=== PATIENT | male | born 1980 | race Hispanic/Latino ===

== ENCOUNTER 2019-11-10 19:23 | Inpatient (IN) | payer OTHER ==
[~2019-11-10] VITALS: Ht 190.5 cm; Wt 107.5 kg
--- OUTSIDE RECORDS SUMMARY | 2019-11-10 19:29 | XMS REPORT ---
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 Allergies, Adverse Reactions, Alerts This patient has no known allergies or adverse reactions. Medications This patient has no known medications. Encounters Start Date/Time End Date/Time Encounter Type Admission Type Attending [facility] Care Facility Care Department Encounter ID 2019-03-08 00:00:00 2019-03-08 00:00:00 Outpatient [facility] [id number] 2019-02-08 03:38:39 2019-02-08 03:38:39 Emergency [facility] [id number] 2019-02-07 23:43:52 2019-02-07 23:43:52 Outpatient [facility] [id number] 2017-06-04 12:36:00 2017-06-04 12:36:00 Emergency E [facility] MED [id number] Results Test Description Test Time Test Comments Text Results Atomic Results Result Comments POC Glucose 2019-05-24 11:24:41 Glucose POC (test code=Glucose POC) 183 mg/dL 70-115 If you consider your patient critically ill, the Nitish-Accu Check Infrom II meter should not be used for Glucose determination. Draw a venous Glucose and send to the main Lab for analysis. POC [id number] 07:12:47* Test Item Value Reference Range Comments Glucose POC (test code=Glucose POC) 259 mg/dL 70-115 If you consider your patient critically ill, the Nitish-Accu Check Infrom II meter should not be used for Glucose determination. Draw a venous Glucose and send to the main Lab for analysis. POC [id number] 20:28:10* Test Item Value Reference Range Comments Glucose POC (test code=Glucose POC) 227 mg/dL 70-115 Notify RN or MDIf you consider your patient critically ill, the Nitish-Accu Check Infrom II meter should not be used for Glucose determination. Draw a venous Glucose and send to the main Lab for analysis. POC [id number] 16:21:11* Test Item Value Reference Range Comments Glucose POC (test code=Glucose POC) 202 mg/dL 70-115 If you consider your patient critically ill, the Nitish-Accu Check Infrom II meter should not be used for Glucose determination. Draw a venous Glucose and send to the main Lab for analysis. Vancomycin Level [id number] 13:25:28* Test Item Value Reference Range Comments Vanco Tr (test code=Vanco Tr) 13.5 mcg/mL 10.0-20.0 POC [id number] 12:13:43* Test Item Value Reference Range Comments Glucose POC (test code=Glucose POC) 217 mg/dL 70-115 If you consider your patient critically ill, the Nitish-Accu Check Infrom II meter should not be used for Glucose determination. Draw a venous Glucose and send to the main Lab for analysis. POC [id number] 07:42:42* Test Item Value Reference Range Comments Glucose POC (test code=Glucose POC) 183 mg/dL 70-115 If you consider your patient critically ill, the Nitish-Accu Check Infrom II meter should not be used for Glucose determination. Draw a venous Glucose and send to the main Lab for analysis. POC [id number] 20:55:39* Test Item Value Reference Range Comments Glucose POC (test code=Glucose POC) 158 mg/dL 70-115 If you consider your patient critically ill, the Nitish-Accu Check Infrom II meter should not be used for Glucose determination. Draw a venous Glucose and send to the main Lab for analysis. POC [id number] 16:22:41* Test Item Value Reference Range Comments Glucose POC (test code=Glucose POC) 134 mg/dL 70-115 Notify RN or MDIf you consider your patient critically ill, the Nitsih-Accu Check Infrom II meter should not be used for Glucose determination. Draw a venous Glucose and send to the main Lab for analysis. POC [id number] 11:01:35* Test Item Value Reference Range Comments Glucose POC (test code=Glucose POC) 297 mg/dL 70-115 Notify RN or MDIf you consider your patient critically ill, the Nitish-Accu Check Infrom II meter should not be used for Glucose determination. Draw a venous Glucose and send to the main Lab for analysis. ABORh [id number] 08:17:25* Test Item Value Reference Range Comments Methodology (test code=Methodology) Test-Tube(TT) Anti-A (test code=Anti-A) 0 Anti-B (test code=Anti-B) 0 Anti-AB (test code=Anti-AB) NT Anti-D (test code=Anti-D) 4+ ABORh Retype (test code=ABORh Retype) O POS POC [id number] 07:20:40* Test Item Value Reference Range Comments Glucose POC (test code=Glucose POC) 185 mg/dL 70-115 Notify RN or MDIf you consider your patient critically ill, the Nitish-Accu Check Infrom II meter should not be used for Glucose determination. Draw a venous Glucose and send to the main Lab for analysis. 3C ABSC [id number] 06:21:17* Test Item Value Reference Range Comments SC1 IS (test code=SC1 IS) NT SC2 IS (test code=SC2 IS) NT SC3 IS (test code=SC3 IS) NT SC1 37 (test code=SC1 37) 0 SC2 37 (test code=SC2 37) 0 SC3 37 (test code=SC3 37) 0 SC1 AHG (test code=SC1 AHG) 0 SC2 AHG (test code=SC2 AHG) 0 SC3 AHG (test code=SC3 AHG) 0 SC1 CC (test code=SC1 CC) 2+ SC2 CC (test code=SC2 CC) 2+ SC3 CC (test code=SC3 CC) 2+ Antibody Screen (3C) (test code=Antibody Screen (3C)) Negative ABSC [id number] 05:54:23* Test Item Value Reference Range Comments Previous History (test code=Previous History) No Prev History BBID (test code=BBID) [id number] Methodology (test code=Methodology) Test-Tube(TT) Anti-A (test code=Anti-A) 0 Anti-B (test code=Anti-B) 0 Anti-D (test code=Anti-D) 4+ DCon (test code=DCon) NT A1 (test code=A1) 4+ B cells (test code=B cells) 4+ ABORh (test code=ABORh) O POS Automated [id number] 05:41:48* Test Item Value Reference Range Comments Neutro Auto (test code=Neutro Auto) 50.8 % 36.0-70.0 Lymph Auto (test code=Lymph Auto) 35.3 % 12.0-44.0 Wasatch Auto (test code=Wasatch Auto) 9.3 % 0.0-11.0 Eos, Auto (test code=Eos, Auto) 3.4 % 0.0-7.0 Basophil Auto (test code=Basophil Auto) 0.3 % 0.0-2.0 Neutro Absolute (test code=Neutro Absolute) 4.9 x10 1.6-7.4 Lymph Absolute (test code=Lymph Absolute) 3.41 x10 .50-4.60 Wasatch Absolute (test code=Wasatch Absolute) .90 x10 .00-1.20 Eos Absolute (test code=Eos Absolute) 0.33 x10 0.00-0.74 Baso Absolute (test code=Baso Absolute) 0.03 x10 0.00-0.21 IG [id number] 05:41:48* Test Item Value Reference Range Comments IG (test code=IG) 0.9 % 0.0-5.0 IG Abs (test code=IG Abs) 0 x10 Complete Blood Count with [id number] 05:41:47* Test Item Value Reference Range Comments WBC (test code=WBC) 9.6 x10 4.4-10.5 RBC (test code=RBC) 3.62 x10 4.10-5.70 Hgb (test code=Hgb) 8.5 g/dL 13.4-17.4 Hct (test code=Hct) 28.9 % 38.7-52.0 MCV (test code=MCV) 79.80 fL 80.00-100.00 MCHC (test code=MCHC) 29.40 g/dL 32.00-37.50 RDW CV (test code=RDW CV) 16.0 % 11.5-14.5 MCH (test code=MCH) 23.5 pg 27.0-32.5 Platelets (test code=Platelets) 634.0 x10 140.0-440.0 MPV (test code=MPV) 8.3 fL Slide Review (test code=Slide Review) Auto Auto Result created by [email or web address]_REV_AUTO [email or web address] nRBC (test code=nRBC) 0 NRBC Abs (test code=NRBC Abs) 0.00 x10 Pos Morph XN (test code=Pos Morph XN) A IPF (test code=IPF) 0 % Basic Metabolic [id number] 05:25:44* Test Item Value Reference Range Comments Sodium Level (test code=Sodium Level) 136.0 mmol/L 135.0-145.0 Potassium Level (test code=Potassium Level) 4.4 mmol/L 3.5-5.1 Chloride Level (test code=Chloride Level) 95 mmol/L 98-105 CO2 (test code=CO2) 30 mmol/L 22-29 Anion Gap (test code=Anion Gap) 11 mmol/L 7-16 BUN (test code=BUN) 14.50 mg/dL 6.00-20.00 Creatinine Level (test code=Creatinine Level) 0.60 mg/dL 0.70-1.20 BUN/Creat Ratio (test code=BUN/Creat Ratio) 24 Glucose Level (test code=Glucose Level) 179 mg/dL 70-115 Calcium Level (test code=Calcium Level) 8.9 mg/dL 8.3-10.5 Basic Metabolic [id number] 05:25:44* Test Item Value Reference Range Comments Sodium Level (test code=Sodium Level) 136.0 mmol/L 135.0-145.0 Potassium Level (test code=Potassium Level) 4.4 mmol/L 3.5-5.1 Chloride Level (test code=Chloride Level) 95 mmol/L 98-105 CO2 (test code=CO2) 30 mmol/L 22-29 Anion Gap (test code=Anion Gap) 11 mmol/L 7-16 BUN (test code=BUN) 14.50 mg/dL 6.00-20.00 Creatinine Level (test code=Creatinine Level) 0.60 mg/dL 0.70-1.20 BUN/Creat Ratio (test code=BUN/Creat Ratio) 24 Glucose Level (test code=Glucose Level) 179 mg/dL 70-115 Calcium Level (test code=Calcium Level) 8.9 mg/dL 8.3-10.5 eGFR AA (test code=eGFR AA) >60 mL/min/1.73 m2 eGFR (estimated Glomerular Filtration Rate) is an estimated value, calculated from the patient's serum creatinine using the MDRD equation. It is NOT the patient's actual GFR. The eGFR provides a more clinically useful measure of kidney disease than serum creatinine alone.This calculation takes sex and race into account, if the information is provided. If the race is not provided, and the patient is -[place], multiply by 1.212. If sex is not provided, and the patient is female, multiply by 0.742. Results for patients <18 years of age have not been validated by the MDRD study and should be interpreted with caution. eGFR Result Interpretation:eGFR > or=60 is in the Normal RangeeGFR < 60 may mean kidney diseaseeGFR < 15 may mean kidney failure Ranges recommended by the National Kidney Foundation, http://nkdep.nih.gov Basic Metabolic [id number] 05:25:44* Test Item Value Reference Range Comments Sodium Level (test code=Sodium Level) 136.0 mmol/L 135.0-145.0 Potassium Level (test code=Potassium Level) 4.4 mmol/L 3.5-5.1 Chloride Level (test code=Chloride Level) 95 mmol/L 98-105 CO2 (test code=CO2) 30 mmol/L 22-29 Anion Gap (test code=Anion Gap) 11 mmol/L 7-16 BUN (test code=BUN) 14.50 mg/dL 6.00-20.00 Creatinine Level (test code=Creatinine Level) 0.60 mg/dL 0.70-1.20 BUN/Creat Ratio (test code=BUN/Creat Ratio) 24 Glucose Level (test code=Glucose Level) 179 mg/dL 70-115 Calcium Level (test code=Calcium Level) 8.9 mg/dL 8.3-10.5 eGFR AA (test code=eGFR AA) >60 mL/min/1.73 m2 eGFR (estimated Glomerular Filtration Rate) is an estimated value, calculated from the patient's serum creatinine using the MDRD equation. It is NOT the patient's actual GFR. The eGFR provides a more clinically useful measure of kidney disease than serum creatinine alone.This calculation takes sex and race into account, if the information is provided. If the race is not provided, and the patient is -[place], multiply by 1.212. If sex is not provided, and the patient is female, multiply by 0.742. Results for patients <18 years of age have not been validated by the MDRD study and should be interpreted with caution. eGFR Result Interpretation:eGFR > or=60 is in the Normal RangeeGFR < 60 may mean kidney diseaseeGFR < 15 may mean kidney failure Ranges recommended by the National Kidney Foundation, http://nkdep.nih.gov eGFR Non-AA (test code=eGFR Non-AA) >60.00 mL/min/1.73 m2 eGFR (estimated Glomerular Filtration Rate) is an estimated value, calculated from the patient's serum creatinine using the MDRD equation. It is NOT the patient's actual GFR. The eGFR provides a more clinically useful measure of kidney disease than serum creatinine alone.This calculation takes sex and race into account, if the information is provided. If the race is not provided, and the patient is -[place], multiply by 1.212. If sex is not provided, and the patient is female, multiply by 0.742. Results for patients <18 years of age have not been validated by the MDRD study and should be interpreted with caution. eGFR Result Interpretation:eGFR > or=60 is in the Normal RangeeGFR < 60 may mean kidney diseaseeGFR < 15 may mean kidney failure Ranges recommended by the National Kidney Foundation, http://nkdep.nih.gov POC [id number] 20:32:07* Test Item Value Reference Range Comments Glucose POC (test code=Glucose POC) 155 mg/dL 70-115 If you consider your patient critically ill, the Nitish-Accu Check Infrom II meter should not be used for Glucose determination. Draw a venous Glucose and send to the main Lab for analysis. POC [id number] 16:56:40* Test Item Value Reference Range Comments Glucose POC (test code=Glucose POC) 161 mg/dL 70-115 If you consider your patient critically ill, the Nitish-Accu Check Infrom II meter should not be used for Glucose determination. Draw a venous Glucose and send to the main Lab for analysis. POC [id number] 11:55:05* Test Item Value Reference Range Comments Glucose POC (test code=Glucose POC) 291 mg/dL 70-115 If you consider your patient critically ill, the Nitish-Accu Check Infrom II meter should not be used for Glucose determination. Draw a venous Glucose and send to the main Lab for analysis. POC [id number] 07:58:10* Test Item Value Reference Range Comments Glucose POC (test code=Glucose POC) 227 mg/dL 70-115 If you consider your patient critically ill, the Nitish-Accu Check Infrom II meter should not be used for Glucose determination. Draw a venous Glucose and send to the main Lab for analysis. Vancomycin Level [id number] 21:57:56* Test Item Value Reference Range Comments Vanco Tr (test code=Vanco Tr) 11.6 mcg/mL 10.0-20.0 POC [id number] 20:04:38* Test Item Value Reference Range Comments Glucose POC (test code=Glucose POC) 123 mg/dL 70-115 If you consider your patient critically ill, the Nitish-Accu Check Infrom II meter should not be used for Glucose determination. Draw a venous Glucose and send to the main Lab for analysis. POC [id number] 16:27:10* Test Item Value Reference Range Comments Glucose POC (test code=Glucose POC) 164 mg/dL 70-115 If you consider your patient critically ill, the Nitish-Accu Check Infrom II meter should not be used for Glucose determination. Draw a venous Glucose and send to the main Lab for analysis. POC [id number] 11:56:10* Test Item Value Reference Range Comments Glucose POC (test code=Glucose POC) 161 mg/dL 70-115 If you consider your patient critically ill, the Nitish-Accu Check Infrom II meter should not be used for Glucose determination. Draw a venous Glucose and send to the main Lab for analysis. Blood [id number] 09:01:35No growth at 5 days.POC [id number] 07:39:33* Test Item Value Reference Range Comments Glucose POC (test code=Glucose POC) 195 mg/dL 70-115 If you consider your patient critically ill, the Nitish-Accu Check Infrom II meter should not be used for Glucose determination. Draw a venous Glucose and send to the main Lab for analysis. Basic Metabolic [id number] 06:17:36* Test Item Value Reference Range Comments Sodium Level (test code=Sodium Level) 138.0 mmol/L 135.0-145.0 Potassium Level (test code=Potassium Level) 4.0 mmol/L 3.5-5.1 Chloride Level (test code=Chloride Level) 100 mmol/L 98-105 CO2 (test code=CO2) 27 mmol/L 22-29 Anion Gap (test code=Anion Gap) 11 mmol/L 7-16 BUN (test code=BUN) 9.00 mg/dL 6.00-20.00 Creatinine Level (test code=Creatinine Level) 0.60 mg/dL 0.70-1.20 BUN/Creat Ratio (test code=BUN/Creat Ratio) 15 Glucose Level (test code=Glucose Level) 189 mg/dL 70-115 Calcium Level (test code=Calcium Level) 8.5 mg/dL 8.3-10.5 Basic Metabolic [id number] 06:17:36* Test Item Value Reference Range Comments Sodium Level (test code=Sodium Level) 138.0 mmol/L 135.0-145.0 Potassium Level (test code=Potassium Level) 4.0 mmol/L 3.5-5.1 Chloride Level (test code=Chloride Level) 100 mmol/L 98-105 CO2 (test code=CO2) 27 mmol/L 22-29 Anion Gap (test code=Anion Gap) 11 mmol/L 7-16 BUN (test code=BUN) 9.00 mg/dL 6.00-20.00 Creatinine Level (test code=Creatinine Level) 0.60 mg/dL 0.70-1.20 BUN/Creat Ratio (test code=BUN/Creat Ratio) 15 Glucose Level (test code=Glucose Level) 189 mg/dL 70-115 Calcium Level (test code=Calcium Level) 8.5 mg/dL 8.3-10.5 eGFR AA (test code=eGFR AA) >60 mL/min/1.73 m2 eGFR (estimated Glomerular Filtration Rate) is an estimated value, calculated from the patient's serum creatinine using the MDRD equation. It is NOT the patient's actual GFR. The eGFR provides a more clinically useful measure of kidney disease than serum creatinine alone.This calculation takes sex and race into account, if the information is provided. If the race is not provided, and the patient is -[place], multiply by 1.212. If sex is not provided, and the patient is female, multiply by 0.742. Results for patients <18 years of age have not been validated by the MDRD study and should be interpreted with caution. eGFR Result Interpretation:eGFR > or=60 is in the Normal RangeeGFR < 60 may mean kidney diseaseeGFR < 15 may mean kidney failure Ranges recommended by the National Kidney Foundation, http://nkdep.nih.gov Basic Metabolic [id number] 06:17:36* Test Item Value Reference Range Comments Sodium Level (test code=Sodium Level) 138.0 mmol/L 135.0-145.0 Potassium Level (test code=Potassium Level) 4.0 mmol/L 3.5-5.1 Chloride Level (test code=Chloride Level) 100 mmol/L 98-105 CO2 (test code=CO2) 27 mmol/L 22-29 Anion Gap (test code=Anion Gap) 11 mmol/L 7-16 BUN (test code=BUN) 9.00 mg/dL 6.00-20.00 Creatinine Level (test code=Creatinine Level) 0.60 mg/dL 0.70-1.20 BUN/Creat Ratio (test code=BUN/Creat Ratio) 15 Glucose Level (test code=Glucose Level) 189 mg/dL 70-115 Calcium Level (test code=Calcium Level) 8.5 mg/dL 8.3-10.5 eGFR AA (test code=eGFR AA) >60 mL/min/1.73 m2 eGFR (estimated Glomerular Filtration Rate) is an estimated value, calculated from the patient's serum creatinine using the MDRD equation. It is NOT the patient's actual GFR. The eGFR provides a more clinically useful measure of kidney disease than serum creatinine alone.This calculation takes sex and race into account, if the information is provided. If the race is not provided, and the patient is -[place], multiply by 1.212. If sex is not provided, and the patient is female, multiply by 0.742. Results for patients <18 years of age have not been validated by the MDRD study and should be interpreted with caution. eGFR Result Interpretation:eGFR > or=60 is in the Normal RangeeGFR < 60 may mean kidney diseaseeGFR < 15 may mean kidney failure Ranges recommended by the National Kidney Foundation, http://nkdep.nih.gov eGFR Non-AA (test code=eGFR Non-AA) >60.00 mL/min/1.73 m2 eGFR (estimated Glomerular Filtration Rate) is an estimated value, calculated from the patient's serum creatinine using the MDRD equation. It is NOT the patient's actual GFR. The eGFR provides a more clinically useful measure of kidney disease than serum creatinine alone.This calculation takes sex and race into account, if the information is provided. If the race is not provided, and the patient is -[place], multiply by 1.212. If sex is not provided, and the patient is female, multiply by 0.742. Results for patients <18 years of age have not been validated by the MDRD study and should be interpreted with caution. eGFR Result Interpretation:eGFR > or=60 is in the Normal RangeeGFR < 60 may mean kidney diseaseeGFR < 15 may mean kidney failure Ranges recommended by the National Kidney Foundation, http://nkdep.nih.gov Complete Blood Count with [id number] 05:15:48* Test Item Value Reference Range Comments WBC (test code=WBC) 10.2 x10 4.4-10.5 RBC (test code=RBC) 3.15 x10 4.10-5.70 Hgb (test code=Hgb) 7.5 g/dL 13.4-17.4 Hct (test code=Hct) 25.8 % 38.7-52.0 MCV (test code=MCV) 81.90 fL 80.00-100.00 MCHC (test code=MCHC) 29.10 g/dL 32.00-37.50 RDW CV (test code=RDW CV) 16.4 % 11.5-14.5 MCH (test code=MCH) 23.8 pg 27.0-32.5 Platelets (test code=Platelets) 595.0 x10 140.0-440.0 MPV (test code=MPV) 8.7 fL Slide Review (test code=Slide Review) Auto Auto Result created by HEMAL_SJM_SLIDE_REV_AUTO [email or web address] nRBC (test code=nRBC) 0 NRBC Abs (test code=NRBC Abs) 0.00 x10 Pos Morph XN (test code=Pos Morph XN) A IPF (test code=IPF) 0 % Automated [id number] 05:15:48* Test Item Value Reference Range Comments Neutro Auto (test code=Neutro Auto) 46.3 % 36.0-70.0 Lymph Auto (test code=Lymph Auto) 41.3 % 12.0-44.0 Wasatch Auto (test code=Wasatch Auto) 8.3 % 0.0-11.0 Eos, Auto (test code=Eos, Auto) 3.2 % 0.0-7.0 Basophil Auto (test code=Basophil Auto) 0.3 % 0.0-2.0 Neutro Absolute (test code=Neutro Absolute) 4.7 x10 1.6-7.4 Lymph Absolute (test code=Lymph Absolute) 4.21 x10 .50-4.60 Wasatch Absolute (test code=Wasatch Absolute) .85 x10 .00-1.20 Eos Absolute (test code=Eos Absolute) 0.33 x10 0.00-0.74 Baso Absolute (test code=Baso Absolute) 0.03 x10 0.00-0.21 IG [id number] 05:15:48* Test Item Value Reference Range Comments IG (test code=IG) 0.6 % 0.0-5.0 IG Abs (test code=IG Abs) 0 x10 Vancomycin Level [id number] 23:32:37* Test Item Value Reference Range Comments Vanco Tr (test code=Vanco Tr) 2.8 mcg/mL 10.0-20.0 POC [id number] 20:57:44* Test Item Value Reference Range Comments Glucose POC (test code=Glucose POC) 309 mg/dL 70-115 If you consider your patient critically ill, the Nitish-Accu Check Infrom II meter should not be used for Glucose determination. Draw a venous Glucose and send to the main Lab for analysis. POC [id number] 16:21:03* Test Item Value Reference Range Comments Glucose POC (test code=Glucose POC) 199 mg/dL 70-115 Notify RN or MDIf you consider your patient critically ill, the Nitish-Accu Check Infrom II meter should not be used for Glucose determination. Draw a venous Glucose and send to the main Lab for analysis. POC [id number] 11:51:37* Test Item Value Reference Range Comments Glucose POC (test code=Glucose POC) 234 mg/dL 70-115 Notify RN or MDIf you consider your patient critically ill, the Nitish-Accu Check Infrom II meter should not be used for Glucose determination. Draw a venous Glucose and send to the main Lab for analysis. Urine [id number] 10:38:47 C Urine Added by GL_SJM_UA_CUL_IND>=100,000 cfu/ml YeastPOC [id number] 07:40:34* Test Item Value Reference Range Comments Glucose POC (test code=Glucose POC) 228 mg/dL 70-115 Notify RN or MDIf you consider your patient critically ill, the Nitish-Accu Check Infrom II meter should not be used for Glucose determination. Draw a venous Glucose and send to the main Lab for analysis. POC [id number] 19:55:40* Test Item Value Reference Range Comments Glucose POC (test code=Glucose POC) 217 mg/dL 70-115 If you consider your patient critically ill, the Nitish-Accu Check Infrom II meter should not be used for Glucose determination. Draw a venous Glucose and send to the main Lab for analysis. POC [id number] 16:06:29* Test Item Value Reference Range Comments Glucose POC (test code=Glucose POC) 228 mg/dL 70-115 Notify RN or MDIf you consider your patient critically ill, the Nitish-Accu Check Infrom II meter should not be used for Glucose determination. Draw a venous Glucose and send to the main Lab for analysis. POC [id number] 11:15:06* Test Item Value Reference Range Comments Glucose POC (test code=Glucose POC) 251 mg/dL 70-115 Notify RN or MDIf you consider your patient critically ill, the Nitish-Accu Check Infrom II meter should not be used for Glucose determination. Draw a venous Glucose and send to the main Lab for analysis. Urinalysis [id number] 06:51:37* Test Item Value Reference Range Comments UA WBC (test code=UA WBC) 20-29 0-5 UA RBC (test code=UA RBC) 6-10 0-5 UA Bacteria (test code=UA Bacteria) Few UA Squam Epithelial (test code=UA Squam Epithelial) 11-19 UA Yeast (test code=UA Yeast) Many UA Ca Ox Crystal (test code=UA Ca Ox Crystal) Few Basic Metabolic [id number] 06:42:47* Test Item Value Reference Range Comments Sodium Level (test code=Sodium Level) 144.0 mmol/L 135.0-145.0 Potassium Level (test code=Potassium Level) 3.8 mmol/L 3.5-5.1 Chloride Level (test code=Chloride Level) 106 mmol/L 98-105 CO2 (test code=CO2) 27 mmol/L 22-29 Anion Gap (test code=Anion Gap) 11 mmol/L 7-16 BUN (test code=BUN) 8.10 mg/dL 6.00-20.00 Creatinine Level (test code=Creatinine Level) 0.80 mg/dL 0.70-1.20 BUN/Creat Ratio (test code=BUN/Creat Ratio) 10 Glucose Level (test code=Glucose Level) 315 mg/dL 70-115 Calcium Level (test code=Calcium Level) 8.6 mg/dL 8.3-10.5 Basic Metabolic [id number] 06:42:47* Test Item Value Reference Range Comments Sodium Level (test code=Sodium Level) 144.0 mmol/L 135.0-145.0 Potassium Level (test code=Potassium Level) 3.8 mmol/L 3.5-5.1 Chloride Level (test code=Chloride Level) 106 mmol/L 98-105 CO2 (test code=CO2) 27 mmol/L 22-29 Anion Gap (test code=Anion Gap) 11 mmol/L 7-16 BUN (test code=BUN) 8.10 mg/dL 6.00-20.00 Creatinine Level (test code=Creatinine Level) 0.80 mg/dL 0.70-1.20 BUN/Creat Ratio (test code=BUN/Creat Ratio) 10 Glucose Level (test code=Glucose Level) 315 mg/dL 70-115 Calcium Level (test code=Calcium Level) 8.6 mg/dL 8.3-10.5 eGFR AA (test code=eGFR AA) >60 mL/min/1.73 m2 eGFR (estimated Glomerular Filtration Rate) is an estimated value, calculated from the patient's serum creatinine using the MDRD equation. It is NOT the patient's actual GFR. The eGFR provides a more clinically useful measure of kidney disease than serum creatinine alone.This calculation takes sex and race into account, if the information is provided. If the race is not provided, and the patient is -[place], multiply by 1.212. If sex is not provided, and the patient is female, multiply by 0.742. Results for patients <18 years of age have not been validated by the MDRD study and should be interpreted with caution. eGFR Result Interpretation:eGFR > or=60 is in the Normal RangeeGFR < 60 may mean kidney diseaseeGFR < 15 may mean kidney failure Ranges recommended by the National Kidney Foundation, http://nkdep.nih.gov Basic Metabolic [id number] 06:42:47* Test Item Value Reference Range Comments Sodium Level (test code=Sodium Level) 144.0 mmol/L 135.0-145.0 Potassium Level (test code=Potassium Level) 3.8 mmol/L 3.5-5.1 Chloride Level (test code=Chloride Level) 106 mmol/L 98-105 CO2 (test code=CO2) 27 mmol/L 22-29 Anion Gap (test code=Anion Gap) 11 mmol/L 7-16 BUN (test code=BUN) 8.10 mg/dL 6.00-20.00 Creatinine Level (test code=Creatinine Level) 0.80 mg/dL 0.70-1.20 BUN/Creat Ratio (test code=BUN/Creat Ratio) 10 Glucose Level (test code=Glucose Level) 315 mg/dL 70-115 Calcium Level (test code=Calcium Level) 8.6 mg/dL 8.3-10.5 eGFR AA (test code=eGFR AA) >60 mL/min/1.73 m2 eGFR (estimated Glomerular Filtration Rate) is an estimated value, calculated from the patient's serum creatinine using the MDRD equation. It is NOT the patient's actual GFR. The eGFR provides a more clinically useful measure of kidney disease than serum creatinine alone.This calculation takes sex and race into account, if the information is provided. If the race is not provided, and the patient is -[place], multiply by 1.212. If sex is not provided, and the patient is female, multiply by 0.742. Results for patients <18 years of age have not been validated by the MDRD study and should be interpreted with caution. eGFR Result Interpretation:eGFR > or=60 is in the Normal RangeeGFR < 60 may mean kidney diseaseeGFR < 15 may mean kidney failure Ranges recommended by the National Kidney Foundation, http://nkdep.nih.gov eGFR Non-AA (test code=eGFR Non-AA) >60.00 mL/min/1.73 m2 eGFR (estimated Glomerular Filtration Rate) is an estimated value, calculated from the patient's serum creatinine using the MDRD equation. It is NOT the patient's actual GFR. The eGFR provides a more clinically useful measure of kidney disease than serum creatinine alone.This calculation takes sex and race into account, if the information is provided. If the race is not provided, and the patient is -[place], multiply by 1.212. If sex is not provided, and the patient is female, multiply by 0.742. Results for patients <18 years of age have not been validated by the MDRD study and should be interpreted with caution. eGFR Result Interpretation:eGFR > or=60 is in the Normal RangeeGFR < 60 may mean kidney diseaseeGFR < 15 may mean kidney failure Ranges recommended by the National Kidney Foundation, http://nkdep.nih.gov Urinalysis with Culture, if [id number] 06:35:06* Test Item Value Reference Range Comments UA Color (test code=UA Color) YELLO Yellow UA Appear (test code=UA Appear) CLDY Clear UA pH (test code=UA pH) 6 UA Spec Grav (test code=UA Spec Grav) 1.023 1.001-1.035 UA Glucose (test code=UA Glucose) 300 mg/dL Negative UA Bili (test code=UA Bili) NEG Negative UA Ketones (test code=UA Ketones) 5 mg/dL Negative UA Blood (test code=UA Blood) 50 cells/mcL Negative UA Protein (test code=UA Protein) 75 mg/dL Negative UA Urobilinogen (test code=UA Urobilinogen) 4 mg/dL >0.2 UA Nitrite (test code=UA Nitrite) NEG Negative UA Leuk Est (test code=UA Leuk Est) 500 cells/mcL Negative UA Micro Ind? (test code=UA Micro Ind?) Indicated Not Indicated Result created by rule [email or web address]_IND Complete Blood Count without [id number] 06:23:13* Test Item Value Reference Range Comments WBC (test code=WBC) 11.5 x10 4.4-10.5 RBC (test code=RBC) 3.46 x10 4.10-5.70 Hgb (test code=Hgb) 8.3 g/dL 13.4-17.4 Hct (test code=Hct) 28.7 % 38.7-52.0 MCV (test code=MCV) 82.90 fL 80.00-100.00 MCH (test code=MCH) 24.0 pg 27.0-32.5 MCHC (test code=MCHC) 28.90 g/dL 32.00-37.50 RDW CV (test code=RDW CV) 16.9 % 11.5-14.5 Platelets (test code=Platelets) 712.0 x10 140.0-440.0 MPV (test code=MPV) 8.3 fL nRBC (test code=nRBC) 0 NRBC Abs (test code=NRBC Abs) 0.00 x10 IPF (test code=IPF) 0 % POC [id number] 20:26:35* Test Item Value Reference Range Comments Glucose POC (test code=Glucose POC) 217 mg/dL 70-115 If you consider your patient critically ill, the Nitish-Accu Check Infrom II meter should not be used for Glucose determination. Draw a venous Glucose and send to the main Lab for analysis. XR Chest 1 View CVAD Insertion [id number] 19:34:01Patient: JADE LANGE Date/Time05/17/2019 19:29 CDTReason for ExampiccReportChest one view AP 05/17/2019 7:33 PMCLINICAL INDICATION: PICC placementCOMPARISON: 05/17/2019 at 1849LOCATION: [id number]:Tip of a left PICC now projects over the cavoatrial junction. There is a trace right pleural effusion. The lungs are otherwise well aerated. Cardiomediastinal contours are within normal limits. The central pulmonary vascu lature is not engorged. Final Dictated by: MD Webb Timothy JDic tated DT/TM: 05/17/2019 7:33 pmSigned by: MD Webb Timothy JSigned (Electron ic Signature): 05/17/2019 7:34 pmXR Chest 1 View [id number] 19:22:55 Patient: JADE LANGE am Date/Time05/17/2019 19:02 CDTReason for ExamLine placementReportChest one view AP 05/17/2019 7:22 PMCLINICAL INDICATION: Line placementCOMPARISON: None availab leLOCATION: [id number]:The tip of a left PICC projects over the right atrium and could be retracted 4 to 5 cm. The lungs are well aerated. Cardiomediastinal contours are within normal limits. The central pulmonary vasculature is not engo rged. Final Dictated by: MD Webb Timothy JDictated DT/TM: 05/17 7:22 pmSigned by: MD Webb Timothy JSigned (Electronic Signature): 7:22 pmBlood [id number] 18:03:00* Test Item Value Reference Range Comments ORGANISM (test code=ORGANISM) Methicillin-Resistant Staphylococcus aureus Chloramphenicol (test code=Chlor) Ciprofloxacin (test code=Cipro) Clindamycin (test code=Clinda) Erythromycin (test code=Eryth) Gentamicin (test code=Gent) Levofloxacin (test code=Levo) Linezolid (test code=Linez) Oxacillin (test code=Ox) Rifampin (test code=Rif) Tetracycline (test code=Tetra) Trimethoprim/Sulfa (test code=SXT) Vancomycin (test code=Vanc) Final Report (test code=Final Report) Methicillin-Resistant Staphylococcus aureus Contact isolation recommended Results called to and read back by: Rao Cruz RN 05/20/19 10:23:39/PXS Anaerobic Gram Stain Report (test code=Anaerobic Gram Stain Report) Evidence of growth Gram Positive Cocci in Clusters Results called to and read back by: Luisito Love 05/18/19 10:31:45 YA Blood [id number] 18:03:00No growth at 5 days.POC [id number] 15:54:30* Test Item Value Reference Range Comments pH Art (test code=pH Art) 7.45 7.35-7.45 pH Temp Inna Art (test code=pH Temp Inna Art) 7.45 pCO2 Art (test code=pCO2 Art) 40 mmHg 35-45 pCO2 Temp Inna Art (test code=pCO2 Temp Inna Art) 40 mmHg pO2 Art (test code=pO2 Art) 78 mmHg 80-100 pO2 Temp Inna Art (test code=pO2 Temp Inna Art) 78 mmHg ctHb Art (test code=ctHb Art) 8.7 g/dL 12.2-17.4 O2 Sat Art (test code=O2 Sat Art) 96.5 % 80.0-100.0 FO2Hb Art (test code=FO2Hb Art) 94.0 % 0.0-100.0 FCOHb Art (test code=FCOHb Art) 2.5 % 0.0-20.0 FMetHb Art (test code=FMetHb Art) 0.1 % 0.0-20.0 HCO3 Art (test code=HCO3 Art) 27.6 mmol/L 22.0-26.0 L Hct Art (test code=Hct Art) 27 % 34-52 Na Art (test code=Na Art) 143 mmol/L 135-145 K Art (test code=K Art) 3.4 mmol/L 3.5-4.5 iCa Art (test code=iCa Art) 1.18 mmol/L 1.00-1.50 Cl Art (test code=Cl Art) 106 mmol/L 95-105 Glu Art (test code=Glu Art) 294 mg/dL 75-115 Base Excess Arterial (test code=Base Excess Arterial) 3.4 FiO2 Art (test code=FiO2 Art) 21 % Lactate Art (test code=Lactate Art) 0.8 mmol/L 0.5-2.2 Draw Site (test code=Draw Site) Radial. L POC [id number] 15:41:58* Test Item Value Reference Range Comments Glucose POC (test code=Glucose POC) 287 mg/dL 70-115 If you consider your patient critically ill, the Nitish-Accu Check Infrom II meter should not be used for Glucose determination. Draw a venous Glucose and send to the main Lab for analysis. Lactic Acid, Plasma (Venous)2019-05-17 15:37:44* Test Item Value Reference Range Comments Lactic Acid, Plasma (Venous) (test code=Lactic Acid, Plasma (Venous)) 1.0 mmol/L 0.5-1.9 Urine Drug [id number] 22:56:06* Test Item Value Reference Range Comments Amphetamine Screen Ur (test code=Amphetamine Screen Ur) Negative Negative Barbiturate Screen Ur (test code=Barbiturate Screen Ur) Negative Negative Benzodiazepines Ur (test code=Benzodiazepines Ur) Negative Negative Cocaine Screen Ur (test code=Cocaine Screen Ur) POSITIVE Negative U Methadone Scr (test code=U Methadone Scr) Negative Negative Opiate Screen Ur (test code=Opiate Screen Ur) Negative Negative U PCP Scrn (test code=U PCP Scrn) Negative Negative Cannabinoid Screen Ur (test code=Cannabinoid Screen Ur) POSITIVE Negative U TCA (test code=U TCA) POSITIVE Negative The results of all drug screen tests are only preliminary. Clinical consideration and professional judgment should be applied to any drug of abuse test result, particularly when preliminary positive results are obtained. Please order a separate confirmatory test if desired. Comprehensive Metabolic [id number] 21:46:03* Test Item Value Reference Range Comments Sodium Level (test code=Sodium Level) 135.0 mmol/L 135.0-145.0 Potassium Level (test code=Potassium Level) 3.7 mmol/L 3.5-5.1 Chloride Level (test code=Chloride Level) 96 mmol/L 98-105 CO2 (test code=CO2) 20 mmol/L 22-29 Anion Gap (test code=Anion Gap) 19 mmol/L 7-16 BUN (test code=BUN) 13.00 mg/dL 6.00-20.00 Creatinine Level (test code=Creatinine Level) 0.80 mg/dL 0.70-1.20 BUN/Creat Ratio (test code=BUN/Creat Ratio) 16 Glucose Level (test code=Glucose Level) 252 mg/dL 70-115 Calcium Level (test code=Calcium Level) 9.4 mg/dL 8.3-10.5 Alk Phos (test code=Alk Phos) 215 U/L 40-129 Bilirubin Total (test code=Bilirubin Total) 0.4 mg/dL 0.1-0.9 Albumin Level (test code=Albumin Level) 3.5 g/dL 3.5-5.2 Protein Total (test code=Protein Total) 8.2 g/dL 6.4-8.3 ALT (test code=ALT) 15 U/L 1-41 AST (test code=AST) 21 U/L 1-40 Globulin (test code=Globulin) 4.7 g/dL 2.9-3.1 A/G Ratio (test code=A/G Ratio) 0.7 ratio Comprehensive Metabolic [id number] 21:46:03* Test Item Value Reference Range Comments Sodium Level (test code=Sodium Level) 135.0 mmol/L 135.0-145.0 Potassium Level (test code=Potassium Level) 3.7 mmol/L 3.5-5.1 Chloride Level (test code=Chloride Level) 96 mmol/L 98-105 CO2 (test code=CO2) 20 mmol/L 22-29 Anion Gap (test code=Anion Gap) 19 mmol/L 7-16 BUN (test code=BUN) 13.00 mg/dL 6.00-20.00 Creatinine Level (test code=Creatinine Level) 0.80 mg/dL 0.70-1.20 BUN/Creat Ratio (test code=BUN/Creat Ratio) 16 Glucose Level (test code=Glucose Level) 252 mg/dL 70-115 Calcium Level (test code=Calcium Level) 9.4 mg/dL 8.3-10.5 Alk Phos (test code=Alk Phos) 215 U/L 40-129 Bilirubin Total (test code=Bilirubin Total) 0.4 mg/dL 0.1-0.9 Albumin Level (test code=Albumin Level) 3.5 g/dL 3.5-5.2 Protein Total (test code=Protein Total) 8.2 g/dL 6.4-8.3 ALT (test code=ALT) 15 U/L 1-41 AST (test code=AST) 21 U/L 1-40 Globulin (test code=Globulin) 4.7 g/dL 2.9-3.1 A/G Ratio (test code=A/G Ratio) 0.7 ratio eGFR AA (test code=eGFR AA) >60 mL/min/1.73 m2 eGFR (estimated Glomerular Filtration Rate) is an estimated value, calculated from the patient's serum creatinine using the MDRD equation. It is NOT the patient's actual GFR. The eGFR provides a more clinically useful measure of kidney disease than serum creatinine alone.This calculation takes sex and race into account, if the information is provided. If the race is not provided, and the patient is -[place], multiply by 1.212. If sex is not provided, and the patient is female, multiply by 0.742. Results for patients <18 years of age have not been validated by the MDRD study and should be interpreted with caution. eGFR Result Interpretation:eGFR > or=60 is in the Normal RangeeGFR < 60 may mean kidney diseaseeGFR < 15 may mean kidney failure Ranges recommended by the National Kidney Foundation, http://nkdep.nih.gov Alcohol [id number] 21:46:03* Test Item Value Reference Range Comments Ethanol Level (test code=Ethanol Level) <0.00 g/dL 0.00-0.01 Intoxicated 0.080 g/dL or more Ethanol Inst (test code=Ethanol Inst) <0 Comprehensive Metabolic [id number] 21:46:03* Test Item Value Reference Range Comments Sodium Level (test code=Sodium Level) 135.0 mmol/L 135.0-145.0 Potassium Level (test code=Potassium Level) 3.7 mmol/L 3.5-5.1 Chloride Level (test code=Chloride Level) 96 mmol/L 98-105 CO2 (test code=CO2) 20 mmol/L 22-29 Anion Gap (test code=Anion Gap) 19 mmol/L 7-16 BUN (test code=BUN) 13.00 mg/dL 6.00-20.00 Creatinine Level (test code=Creatinine Level) 0.80 mg/dL 0.70-1.20 BUN/Creat Ratio (test code=BUN/Creat Ratio) 16 Glucose Level (test code=Glucose Level) 252 mg/dL 70-115 Calcium Level (test code=Calcium Level) 9.4 mg/dL 8.3-10.5 Alk Phos (test code=Alk Phos) 215 U/L 40-129 Bilirubin Total (test code=Bilirubin Total) 0.4 mg/dL 0.1-0.9 Albumin Level (test code=Albumin Level) 3.5 g/dL 3.5-5.2 Protein Total (test code=Protein Total) 8.2 g/dL 6.4-8.3 ALT (test code=ALT) 15 U/L 1-41 AST (test code=AST) 21 U/L 1-40 Globulin (test code=Globulin) 4.7 g/dL 2.9-3.1 A/G Ratio (test code=A/G Ratio) 0.7 ratio eGFR AA (test code=eGFR AA) >60 mL/min/1.73 m2 eGFR (estimated Glomerular Filtration Rate) is an estimated value, calculated from the patient's serum creatinine using the MDRD equation. It is NOT the patient's actual GFR. The eGFR provides a more clinically useful measure of kidney disease than serum creatinine alone.This calculation takes sex and race into account, if the information is provided. If the race is not provided, and the patient is -[place], multiply by 1.212. If sex is not provided, and the patient is female, multiply by 0.742. Results for patients <18 years of age have not been validated by the MDRD study and should be interpreted with caution. eGFR Result Interpretation:eGFR > or=60 is in the Normal RangeeGFR < 60 may mean kidney diseaseeGFR < 15 may mean kidney failure Ranges recommended by the National Kidney Foundation, http://nkdep.nih.gov eGFR Non-AA (test code=eGFR Non-AA) >60.00 mL/min/1.73 m2 eGFR (estimated Glomerular Filtration Rate) is an estimated value, calculated from the patient's serum creatinine using the MDRD equation. It is NOT the patient's actual GFR. The eGFR provides a more clinically useful measure of kidney disease than serum creatinine alone.This calculation takes sex and race into account, if the information is provided. If the race is not provided, and the patient is -[place], multiply by 1.212. If sex is not provided, and the patient is female, multiply by 0.742. Results for patients <18 years of age have not been validated by the MDRD study and should be interpreted with caution. eGFR Result Interpretation:eGFR > or=60 is in the Normal RangeeGFR < 60 may mean kidney diseaseeGFR < 15 may mean kidney failure Ranges recommended by the National Kidney Foundation, http://nkdep.nih.gov IG [id number] 21:19:52* Test Item Value Reference Range Comments IG (test code=IG) 0.6 % 0.0-5.0 IG Abs (test code=IG Abs) 0 x10 Complete Blood Count with [id number] 21:19:51* Test Item Value Reference Range Comments WBC (test code=WBC) 16.0 x10 4.4-10.5 RBC (test code=RBC) 3.86 x10 4.10-5.70 Hgb (test code=Hgb) 9.4 g/dL 13.4-17.4 Hct (test code=Hct) 31.2 % 38.7-52.0 MCV (test code=MCV) 80.80 fL 80.00-100.00 MCHC (test code=MCHC) 30.10 g/dL 32.00-37.50 RDW CV (test code=RDW CV) 16.7 % 11.5-14.5 MCH (test code=MCH) 24.4 pg 27.0-32.5 Platelets (test code=Platelets) 772.0 x10 140.0-440.0 MPV (test code=MPV) 8.3 fL Slide Review (test code=Slide Review) Auto Auto Result created by [email or web address]_[email or web address] nRBC (test code=nRBC) 0 NRBC Abs (test code=NRBC Abs) 0.00 x10 IPF (test code=IPF) 0 % Automated [id number] 21:19:51* Test Item Value Reference Range Comments Neutro Auto (test code=Neutro Auto) 82.6 % 36.0-70.0 Lymph Auto (test code=Lymph Auto) 8.7 % 12.0-44.0 Wasatch Auto (test code=Wasatch Auto) 7.7 % 0.0-11.0 Eos, Auto (test code=Eos, Auto) 0.1 % 0.0-7.0 Basophil Auto (test code=Basophil Auto) 0.3 % 0.0-2.0 Neutro Absolute (test code=Neutro Absolute) 13.2 x10 1.6-7.4 Lymph Absolute (test code=Lymph Absolute) 1.39 x10 .50-4.60 Wasatch Absolute (test code=Wasatch Absolute) 1.23 x10 .00-1.20 Eos Absolute (test code=Eos Absolute) 0.02 x10 0.00-0.74 Baso Absolute (test code=Baso Absolute) 0.05 x10 0.00-0.21 POC [id number] 11:31:08* Test Item Value Reference Range Comments Glucose POC (test code=Glucose POC) 167 mg/dL 70-115 If you consider your patient critically ill, the Nitish-Accu Check Infrom II meter should not be used for Glucose determination. Draw a venous Glucose and send to the main Lab for analysis. POC [id number] 07:36:11* Test Item Value Reference Range Comments Glucose POC (test code=Glucose POC) 221 mg/dL 70-115 Notify RN or MDIf you consider your patient critically ill, the Nitish-Accu Check Infrom II meter should not be used for Glucose determination. Draw a venous Glucose and send to the main Lab for analysis. POC [id number] 20:26:07* Test Item Value Reference Range Comments Glucose POC (test code=Glucose POC) 176 mg/dL 70-115 Notify RN or MDIf you consider your patient critically ill, the Nitish-Accu Check Infrom II meter should not be used for Glucose determination. Draw a venous Glucose and send to the main Lab for analysis. POC [id number] 16:51:07* Test Item Value Reference Range Comments Glucose POC (test code=Glucose POC) 167 mg/dL 70-115 If you consider your patient critically ill, the Nitish-Accu Check Infrom II meter should not be used for Glucose determination. Draw a venous Glucose and send to the main Lab for analysis. POC [id number] 11:13:15* Test Item Value Reference Range Comments Glucose POC (test code=Glucose POC) 224 mg/dL 70-115 Notify RN or MDIf you consider your patient critically ill, the Nitish-Accu Check Infrom II meter should not be used for Glucose determination. Draw a venous Glucose and send to the main Lab for analysis. POC [id number] 07:31:38* Test Item Value Reference Range Comments Glucose POC (test code=Glucose POC) 263 mg/dL 70-115 Notify RN or MDIf you consider your patient critically ill, the Nitish-Accu Check Infrom II meter should not be used for Glucose determination. Draw a venous Glucose and send to the main Lab for analysis. Basic Metabolic [id number] 06:51:27* Test Item Value Reference Range Comments Sodium Level (test code=Sodium Level) 138.0 mmol/L 135.0-145.0 Potassium Level (test code=Potassium Level) 4.7 mmol/L 3.5-5.1 Chloride Level (test code=Chloride Level) 100 mmol/L 98-105 CO2 (test code=CO2) 29 mmol/L 22-29 Anion Gap (test code=Anion Gap) 9 mmol/L 7-16 BUN (test code=BUN) 16.20 mg/dL 6.00-20.00 Creatinine Level (test code=Creatinine Level) 0.70 mg/dL 0.70-1.20 BUN/Creat Ratio (test code=BUN/Creat Ratio) 23 Glucose Level (test code=Glucose Level) 263 mg/dL 70-115 Calcium Level (test code=Calcium Level) 8.8 mg/dL 8.3-10.5 Basic Metabolic [id number] 06:51:27* Test Item Value Reference Range Comments Sodium Level (test code=Sodium Level) 138.0 mmol/L 135.0-145.0 Potassium Level (test code=Potassium Level) 4.7 mmol/L 3.5-5.1 Chloride Level (test code=Chloride Level) 100 mmol/L 98-105 CO2 (test code=CO2) 29 mmol/L 22-29 Anion Gap (test code=Anion Gap) 9 mmol/L 7-16 BUN (test code=BUN) 16.20 mg/dL 6.00-20.00 Creatinine Level (test code=Creatinine Level) 0.70 mg/dL 0.70-1.20 BUN/Creat Ratio (test code=BUN/Creat Ratio) 23 Glucose Level (test code=Glucose Level) 263 mg/dL 70-115 Calcium Level (test code=Calcium Level) 8.8 mg/dL 8.3-10.5 eGFR AA (test code=eGFR AA) >60 mL/min/1.73 m2 eGFR (estimated Glomerular Filtration Rate) is an estimated value, calculated from the patient's serum creatinine using the MDRD equation. It is NOT the patient's actual GFR. The eGFR provides a more clinically useful measure of kidney disease than serum creatinine alone.This calculation takes sex and race into account, if the information is provided. If the race is not provided, and the patient is -[place], multiply by 1.212. If sex is not provided, and the patient is female, multiply by 0.742. Results for patients <18 years of age have not been validated by the MDRD study and should be interpreted with caution. eGFR Result Interpretation:eGFR > or=60 is in the Normal RangeeGFR < 60 may mean kidney diseaseeGFR < 15 may mean kidney failure Ranges recommended by the National Kidney Foundation, http://nkdep.nih.gov Basic Metabolic [id number] 06:51:27* Test Item Value Reference Range Comments Sodium Level (test code=Sodium Level) 138.0 mmol/L 135.0-145.0 Potassium Level (test code=Potassium Level) 4.7 mmol/L 3.5-5.1 Chloride Level (test code=Chloride Level) 100 mmol/L 98-105 CO2 (test code=CO2) 29 mmol/L 22-29 Anion Gap (test code=Anion Gap) 9 mmol/L 7-16 BUN (test code=BUN) 16.20 mg/dL 6.00-20.00 Creatinine Level (test code=Creatinine Level) 0.70 mg/dL 0.70-1.20 BUN/Creat Ratio (test code=BUN/Creat Ratio) 23 Glucose Level (test code=Glucose Level) 263 mg/dL 70-115 Calcium Level (test code=Calcium Level) 8.8 mg/dL 8.3-10.5 eGFR AA (test code=eGFR AA) >60 mL/min/1.73 m2 eGFR (estimated Glomerular Filtration Rate) is an estimated value, calculated from the patient's serum creatinine using the MDRD equation. It is NOT the patient's actual GFR. The eGFR provides a more clinically useful measure of kidney disease than serum creatinine alone.This calculation takes sex and race into account, if the information is provided. If the race is not provided, and the patient is -[place], multiply by 1.212. If sex is not provided, and the patient is female, multiply by 0.742. Results for patients <18 years of age have not been validated by the MDRD study and should be interpreted with caution. eGFR Result Interpretation:eGFR > or=60 is in the Normal RangeeGFR < 60 may mean kidney diseaseeGFR < 15 may mean kidney failure Ranges recommended by the National Kidney Foundation, http://nkdep.nih.gov eGFR Non-AA (test code=eGFR Non-AA) >60.00 mL/min/1.73 m2 eGFR (estimated Glomerular Filtration Rate) is an estimated value, calculated from the patient's serum creatinine using the MDRD equation. It is NOT the patient's actual GFR. The eGFR provides a more clinically useful measure of kidney disease than serum creatinine alone.This calculation takes sex and race into account, if the information is provided. If the race is not provided, and the patient is -[place], multiply by 1.212. If sex is not provided, and the patient is female, multiply by 0.742. Results for patients <18 years of age have not been validated by the MDRD study and should be interpreted with caution. eGFR Result Interpretation:eGFR > or=60 is in the Normal RangeeGFR < 60 may mean kidney diseaseeGFR < 15 may mean kidney failure Ranges recommended by the National [facility], http://nkdep.nih.gov Automated [id number] 06:46:59* Test Item Value Reference Range Comments Neutro Auto (test code=Neutro Auto) 53.5 % 36.0-70.0 Lymph Auto (test code=Lymph Auto) 34.2 % 12.0-44.0 Wasatch Auto (test code=Wasatch Auto) 7.9 % 0.0-11.0 Eos, Auto (test code=Eos, Auto) 3.1 % 0.0-7.0 Basophil Auto (test code=Basophil Auto) 0.4 % 0.0-2.0 Neutro Absolute (test code=Neutro Absolute) 6.1 x10 1.6-7.4 Lymph Absolute (test code=Lymph Absolute) 3.92 x10 .50-4.60 Wasatch Absolute (test code=Wasatch Absolute) .91 x10 .00-1.20 Eos Absolute (test code=Eos Absolute) 0.35 x10 0.00-0.74 Baso Absolute (test code=Baso Absolute) 0.05 x10 0.00-0.21 IG [id number] 06:46:59* Test Item Value Reference Range Comments IG (test code=IG) 0.9 % 0.0-5.0 IG Abs (test code=IG Abs) 0 x10 Complete Blood Count with [id number] 06:46:58* Test Item Value Reference Range Comments WBC (test code=WBC) 11.5 x10 4.4-10.5 RBC (test code=RBC) 3.58 x10 4.10-5.70 Hgb (test code=Hgb) 8.9 g/dL 13.4-17.4 Hct (test code=Hct) 29.5 % 38.7-52.0 MCV (test code=MCV) 82.40 fL 80.00-100.00 MCHC (test code=MCHC) 30.20 g/dL 32.00-37.50 RDW CV (test code=RDW CV) 16.0 % 11.5-14.5 MCH (test code=MCH) 24.9 pg 27.0-32.5 Platelets (test code=Platelets) 777.0 x10 140.0-440.0 MPV (test code=MPV) 8.3 fL Slide Review (test code=Slide Review) Auto Auto Result created by GL_SJM_SLIDE_REV_AUTO nRBC (test code=nRBC) 0 NRBC Abs (test code=NRBC Abs) 0.00 x10 IPF (test code=IPF) 0 % Prothrombin Time and [id number] 06:46:58* Test Item Value Reference Range Comments Prothrombin Time (test code=Prothrombin Time) 12.5 seconds 9.8-13.4 INR (test code=INR) 1.1 ratio 0.6-1.2 POC [id number] 20:30:45* Test Item Value Reference Range Comments Glucose POC (test code=Glucose POC) 170 mg/dL 70-115 If you consider your patient critically ill, the Nitish-Accu Check Infrom II meter should not be used for Glucose determination. Draw a venous Glucose and send to the main Lab for analysis. POC [id number] 16:43:12* Test Item Value Reference Range Comments Glucose POC (test code=Glucose POC) 165 mg/dL 70-115 If you consider your patient critically ill, the Nitish-Accu Check Infrom II meter should not be used for Glucose determination. Draw a venous Glucose and send to the main Lab for analysis. Blood [id number] 12:02:02No growth at 5 days.POC [id number] 11:15:34* Test Item Value Reference Range Comments Glucose POC (test code=Glucose POC) 302 mg/dL 70-115 Notify RN or MDIf you consider your patient critically ill, the Nitish-Accu Check Infrom II meter should not be used for Glucose determination. Draw a venous Glucose and send to the main Lab for analysis. POC [id number] 07:49:14* Test Item Value Reference Range Comments Glucose POC (test code=Glucose POC) 272 mg/dL 70-115 If you consider your patient critically ill, the Nitish-Accu Check Infrom II meter should not be used for Glucose determination. Draw a venous Glucose and send to the main Lab for analysis. POC [id number] 20:59:08* Test Item Value Reference Range Comments Glucose POC (test code=Glucose POC) 306 mg/dL 70-115 Notify RN or MDIf you consider your patient critically ill, the Nitish-Accu Check Infrom II meter should not be used for Glucose determination. Draw a venous Glucose and send to the main Lab for analysis. POC [id number] 16:28:39* Test Item Value Reference Range Comments Glucose POC (test code=Glucose POC) 167 mg/dL 70-115 Notify RN or MDIf you consider your patient critically ill, the Nitish-Accu Check Infrom II meter should not be used for Glucose determination. Draw a venous Glucose and send to the main Lab for analysis. POC [id number] 11:51:31* Test Item Value Reference Range Comments Glucose POC (test code=Glucose POC) 275 mg/dL 70-115 Notify RN or MDIf you consider your patient critically ill, the Nitish-Accu Check Infrom II meter should not be used for Glucose determination. Draw a venous Glucose and send to the main Lab for analysis. POC [id number] 07:48:38* Test Item Value Reference Range Comments Glucose POC (test code=Glucose POC) 187 mg/dL 70-115 Notify RN or MDIf you consider your patient critically ill, the Nitish-Accu Check Infrom II meter should not be used for Glucose determination. Draw a venous Glucose and send to the main Lab for analysis. Basic Metabolic [id number] 05:25:11* Test Item Value Reference Range Comments Sodium Level (test code=Sodium Level) 138.0 mmol/L 135.0-145.0 Potassium Level (test code=Potassium Level) 4.2 mmol/L 3.5-5.1 Chloride Level (test code=Chloride Level) 102 mmol/L 98-105 CO2 (test code=CO2) 27 mmol/L 22-29 Anion Gap (test code=Anion Gap) 9 mmol/L 7-16 BUN (test code=BUN) 7.80 mg/dL 6.00-20.00 Creatinine Level (test code=Creatinine Level) 0.50 mg/dL 0.70-1.20 BUN/Creat Ratio (test code=BUN/Creat Ratio) 16 Glucose Level (test code=Glucose Level) 172 mg/dL 70-115 Calcium Level (test code=Calcium Level) 8.5 mg/dL 8.3-10.5 Basic Metabolic [id number] 05:25:11* Test Item Value Reference Range Comments Sodium Level (test code=Sodium Level) 138.0 mmol/L 135.0-145.0 Potassium Level (test code=Potassium Level) 4.2 mmol/L 3.5-5.1 Chloride Level (test code=Chloride Level) 102 mmol/L 98-105 CO2 (test code=CO2) 27 mmol/L 22-29 Anion Gap (test code=Anion Gap) 9 mmol/L 7-16 BUN (test code=BUN) 7.80 mg/dL 6.00-20.00 Creatinine Level (test code=Creatinine Level) 0.50 mg/dL 0.70-1.20 BUN/Creat Ratio (test code=BUN/Creat Ratio) 16 Glucose Level (test code=Glucose Level) 172 mg/dL 70-115 Calcium Level (test code=Calcium Level) 8.5 mg/dL 8.3-10.5 eGFR AA (test code=eGFR AA) >60 mL/min/1.73 m2 eGFR (estimated Glomerular Filtration Rate) is an estimated value, calculated from the patient's serum creatinine using the MDRD equation. It is NOT the patient's actual GFR. The eGFR provides a more clinically useful measure of kidney disease than serum creatinine alone.This calculation takes sex and race into account, if the information is provided. If the race is not provided, and the patient is -[place], multiply by 1.212. If sex is not provided, and the patient is female, multiply by 0.742. Results for patients <18 years of age have not been validated by the MDRD study and should be interpreted with caution. eGFR Result Interpretation:eGFR > or=60 is in the Normal RangeeGFR < 60 may mean kidney diseaseeGFR < 15 may mean kidney failure Ranges recommended by the National [employer], http://nkdep.nih.gov Basic Metabolic [id number] 05:25:11* Test Item Value Reference Range Comments Sodium Level (test code=Sodium Level) 138.0 mmol/L 135.0-145.0 Potassium Level (test code=Potassium Level) 4.2 mmol/L 3.5-5.1 Chloride Level (test code=Chloride Level) 102 mmol/L 98-105 CO2 (test code=CO2) 27 mmol/L 22-29 Anion Gap (test code=Anion Gap) 9 mmol/L 7-16 BUN (test code=BUN) 7.80 mg/dL 6.00-20.00 Creatinine Level (test code=Creatinine Level) 0.50 mg/dL 0.70-1.20 BUN/Creat Ratio (test code=BUN/Creat Ratio) 16 Glucose Level (test code=Glucose Level) 172 mg/dL 70-115 Calcium Level (test code=Calcium Level) 8.5 mg/dL 8.3-10.5 eGFR AA (test code=eGFR AA) >60 mL/min/1.73 m2 eGFR (estimated Glomerular Filtration Rate) is an estimated value, calculated from the patient's serum creatinine using the MDRD equation. It is NOT the patient's actual GFR. The eGFR provides a more clinically useful measure of kidney disease than serum creatinine alone.This calculation takes sex and race into account, if the information is provided. If the race is not provided, and the patient is -[place], multiply by 1.212. If sex is not provided, and the patient is female, multiply by 0.742. Results for patients <18 years of age have not been validated by the MDRD study and should be interpreted with caution. eGFR Result Interpretation:eGFR > or=60 is in the Normal RangeeGFR < 60 may mean kidney diseaseeGFR < 15 may mean kidney failure Ranges recommended by the [employer] [facility], http://nkdep.nih.gov eGFR Non-AA (test code=eGFR Non-AA) >60.00 mL/min/1.73 m2 eGFR (estimated Glomerular Filtration Rate) is an estimated value, calculated from the patient's serum creatinine using the MDRD equation. It is NOT the patient's actual GFR. The eGFR provides a more clinically useful measure of kidney disease than serum creatinine alone.This calculation takes sex and race into account, if the information is provided. If the race is not provided, and the patient is -[place], multiply by 1.212. If sex is not provided, and the patient is female, multiply by 0.742. Results for patients <18 years of age have not been validated by the MDRD study and should be interpreted with caution. eGFR Result Interpretation:eGFR > or=60 is in the Normal RangeeGFR < 60 may mean kidney diseaseeGFR < 15 may mean kidney failure Ranges recommended by the [employer] [facility], http://nkdep.nih.gov Urinalysis with Culture, if [id number] 05:12:29* Test Item Value Reference Range Comments UA Color (test code=UA Color) YELLO Yellow UA Appear (test code=UA Appear) CLEAR Clear UA pH (test code=UA pH) 5 UA Spec Grav (test code=UA Spec Grav) 1.009 1.001-1.035 UA Glucose (test code=UA Glucose) NEG Negative UA Bili (test code=UA Bili) NEG Negative UA Ketones (test code=UA Ketones) NEG Negative UA Blood (test code=UA Blood) NEG Negative UA Protein (test code=UA Protein) NEG Negative UA Urobilinogen (test code=UA Urobilinogen) 0.2 mg/dL UA Nitrite (test code=UA Nitrite) NEG Negative UA Leuk Est (test code=UA Leuk Est) NEG Negative UA Micro Ind? (test code=UA Micro Ind?) Not Indicated Not Indicated Result created by rule GL_SJM_UA_MICRO_IND Complete Blood Count with [id number] 05:06:41* Test Item Value Reference Range Comments WBC (test code=WBC) 11.4 x10 4.4-10.5 RBC (test code=RBC) 3.25 x10 4.10-5.70 Hgb (test code=Hgb) 8.1 g/dL 13.4-17.4 MCV (test code=MCV) 82.50 fL 80.00-100.00 Hct (test code=Hct) 26.8 % 38.7-52.0 MCHC (test code=MCHC) 30.20 g/dL 32.00-37.50 RDW CV (test code=RDW CV) 15.8 % 11.5-14.5 MCH (test code=MCH) 24.9 pg 27.0-32.5 Platelets (test code=Platelets) 709.0 x10 140.0-440.0 MPV (test code=MPV) 8.2 fL Slide Review (test code=Slide Review) Auto Auto Result created by GL_SJM_SLIDE_REV_AUTO nRBC (test code=nRBC) 0 NRBC Abs (test code=NRBC Abs) 0.00 x10 IPF (test code=IPF) 0 % Automated [id number] 05:06:41* Test Item Value Reference Range Comments Neutro Auto (test code=Neutro Auto) 52.8 % 36.0-70.0 Lymph Auto (test code=Lymph Auto) 34.4 % 12.0-44.0 Wasatch Auto (test code=Wasatch Auto) 9.2 % 0.0-11.0 Eos, Auto (test code=Eos, Auto) 2.5 % 0.0-7.0 Basophil Auto (test code=Basophil Auto) 0.4 % 0.0-2.0 Neutro Absolute (test code=Neutro Absolute) 6.0 x10 1.6-7.4 Lymph Absolute (test code=Lymph Absolute) 3.92 x10 .50-4.60 Wasatch Absolute (test code=Wasatch Absolute) 1.05 x10 .00-1.20 Eos Absolute (test code=Eos Absolute) 0.28 x10 0.00-0.74 Baso Absolute (test code=Baso Absolute) 0.04 x10 0.00-0.21 IG [id number] 05:06:41* Test Item Value Reference Range Comments IG (test code=IG) 0.7 % 0.0-5.0 IG Abs (test code=IG Abs) 0 x10 POC [id number] 21:04:42* Test Item Value Reference Range Comments Glucose POC (test code=Glucose POC) 211 mg/dL 70-115 If you consider your patient critically ill, the Nitish-Accu Check Infrom II meter should not be used for Glucose determination. Draw a venous Glucose and send to the main Lab for analysis. POC [id number] 16:59:08* Test Item Value Reference Range Comments Glucose POC (test code=Glucose POC) 231 mg/dL 70-115 Notify RN or MDIf you consider your patient critically ill, the Nitish-Accu Check Infrom II meter should not be used for Glucose determination. Draw a venous Glucose and send to the main Lab for analysis. POC [id number] 11:36:36* Test Item Value Reference Range Comments Glucose POC (test code=Glucose POC) 360 mg/dL 70-115 Notify RN or MDIf you consider your patient critically ill, the Nitish-Accu Check Infrom II meter should not be used for Glucose determination. Draw a venous Glucose and send to the main Lab for analysis. POC [id number] 07:40:35* Test Item Value Reference Range Comments Glucose POC (test code=Glucose POC) 241 mg/dL 70-115 Notify RN or MDIf you consider your patient critically ill, the Nitish-Accu Check Infrom II meter should not be used for Glucose determination. Draw a venous Glucose and send to the main Lab for analysis. POC [id number] 20:25:31* Test Item Value Reference Range Comments Glucose POC (test code=Glucose POC) 306 mg/dL 70-115 If you consider your patient critically ill, the Nitish-Accu Check Infrom II meter should not be used for Glucose determination. Draw a venous Glucose and send to the main Lab for analysis. POC [id number] 17:11:02* Test Item Value Reference Range Comments Glucose POC (test code=Glucose POC) 191 mg/dL 70-115 Notify RN or MDIf you consider your patient critically ill, the Nitish-Accu Check Infrom II meter should not be used for Glucose determination. Draw a venous Glucose and send to the main Lab for analysis. XR Chest 1 View [id number] 16:29:35Patient: JADE LANGE II Date/Time04/06/2019 16:22 CDTReason for ExamLine placementReportCHEST 1 VIEWCLINICAL INFORMATION: Line placementCOMPARISON: October 26, 2018FINDINGS:The tip of the left arm PICC is located at the superior cavoatrial junction. The lungs are well-expanded. There is stable blunting of the right lateral costophrenic angle. The heart size is normal. The bones are unchanged.IMPRESSION:The tip of the left arm PICC projects over the superior cavoatrial junction.LOCATION: R16 Final Dictated by: MD Corley Adam FDictated DT/TM: 04/06/2019 4:28 pmSigned by: MD Corley Adam FSigned (Electronic Signature): 04/06/2019 4:29 pmPOC [id number] 14:07:01* Test Item Value Reference Range Comments Glucose POC (test code=Glucose POC) 276 mg/dL 70-115 If you consider your patient critically ill, the Nitish-Accu Check Infrom II meter should not be used for Glucose determination. Draw a venous Glucose and send to the main Lab for analysis. POC [id number] 11:12:33* Test Item Value Reference Range Comments Glucose POC (test code=Glucose POC) 292 mg/dL 70-115 If you consider your patient critically ill, the Nitish-Accu Check Infrom II meter should not be used for Glucose determination. Draw a venous Glucose and send to the main Lab for analysis. Urine [id number] 09:34:39* Test Item Value Reference Range Comments ORGANISM (test code=ORGANISM) Escherichia coli Amikacin (test code=Amik) Ampicillin (test code=Amp) Ampicillin/Sulbactam (test code=Amp/Sul) Cefazolin (test code=Cefaz) Cefepime (test code=Cefep) Cefotaxime (test code=Cefo) Ceftazidime (test code=Ceftaz) Ceftriaxone (test code=Ceftri) Cefuroxime (test code=Cefur) Ciprofloxacin (test code=Cipro) Gentamicin (test code=Gent) Imipenem (test code=Imi) Levofloxacin (test code=Levo) Meropenem (test code=Lisandro) Nitrofurantoin (test code=Nitro) Piperacillin/Tazobactam (test code=Pip/Jerzy) Tobramycin (test code=Tobra) Trimethoprim/Sulfa (test code=SXT) ORGANISM (test code=ORGANISM2) Escherichia coli Amikacin (test code=Amik) Ampicillin (test code=Amp) Ampicillin/Sulbactam (test code=Amp/Sul) Cefazolin (test code=Cefaz) Cefepime (test code=Cefep) Cefotaxime (test code=Cefo) Ceftazidime (test code=Ceftaz) Ceftriaxone (test code=Ceftri) Cefuroxime (test code=Cefur) Ciprofloxacin (test code=Cipro) Gentamicin (test code=Gent) Imipenem (test code=Imi) Levofloxacin (test code=Levo) Meropenem (test code=Lisandro) Nitrofurantoin (test code=Nitro) Piperacillin/Tazobactam (test code=Pip/Jerzy) Tobramycin (test code=Tobra) Trimethoprim/Sulfa (test code=SXT) Final Report (test code=Final Report) >=100,000 cfu/ml Escherichia coli >=100,000 cfu/ml Escherichia coli #2 C Urine Added by [email or web address]_CUL_INDHemoglobin [id number] 07:40:43* Test Item Value Reference Range Comments Hemoglobin A1c (test code=Hemoglobin A1c) 10.5 % 4.8-5.9 Non Diabetic 4.8-5.9%Diabetic <7.0% POC [id number] 07:23:37* Test Item Value Reference Range Comments Glucose POC (test code=Glucose POC) 308 mg/dL 70-115 If you consider your patient critically ill, the Nitish-Accu Check Infrom II meter should not be used for Glucose determination. Draw a venous Glucose and send to the main Lab for analysis. 3C ABSC [id number] 05:58:53* Test Item Value Reference Range Comments SC1 IS (test code=SC1 IS) NT SC2 IS (test code=SC2 IS) NT SC3 IS (test code=SC3 IS) NT SC1 37 (test code=SC1 37) 0 SC2 37 (test code=SC2 37) 0 SC3 37 (test code=SC3 37) 0 SC1 AHG (test code=SC1 AHG) 0 SC2 AHG (test code=SC2 AHG) 0 SC3 AHG (test code=SC3 AHG) 0 SC1 CC (test code=SC1 CC) 2+ SC2 CC (test code=SC2 CC) 2+ SC3 CC (test code=SC3 CC) 2+ Antibody Screen (3C) (test code=Antibody Screen (3C)) Negative ABSC [id number] 05:58:52* Test Item Value Reference Range Comments Previous History (test code=Previous History) Yes Prev History BBID (test code=BBID) [id number] Methodology (test code=Methodology) Test-Tube(TT) Anti-A (test code=Anti-A) 0 Anti-B (test code=Anti-B) 0 Anti-D (test code=Anti-D) 4+ DCon (test code=DCon) NT A1 (test code=A1) 4+ B cells (test code=B cells) 4+ ABORh (test code=ABORh) O POS Protein [id number] 05:39:06* Test Item Value Reference Range Comments Protein Total (test code=Protein Total) 7.0 g/dL 6.4-8.3 Albumin [id number] 05:39:06* Test Item Value Reference Range Comments Albumin Level (test code=Albumin Level) 3.0 g/dL 3.5-5.2 [id number] 05:39:06* Test Item Value Reference Range Comments Prealbumin (test code=Prealbumin) 10 mg/dL 20-40 Basic Metabolic [id number] 05:39:05* Test Item Value Reference Range Comments Sodium Level (test code=Sodium Level) 135.0 mmol/L 135.0-145.0 Potassium Level (test code=Potassium Level) 4.5 mmol/L 3.5-5.1 Chloride Level (test code=Chloride Level) 98 mmol/L 98-105 CO2 (test code=CO2) 25 mmol/L 22-29 Anion Gap (test code=Anion Gap) 12 mmol/L 7-16 BUN (test code=BUN) 9.20 mg/dL 6.00-20.00 Creatinine Level (test code=Creatinine Level) 0.60 mg/dL 0.70-1.20 BUN/Creat Ratio (test code=BUN/Creat Ratio) 15 Glucose Level (test code=Glucose Level) 299 mg/dL 70-115 Calcium Level (test code=Calcium Level) 8.5 mg/dL 8.3-10.5 Basic Metabolic [id number] 05:39:05* Test Item Value Reference Range Comments Sodium Level (test code=Sodium Level) 135.0 mmol/L 135.0-145.0 Potassium Level (test code=Potassium Level) 4.5 mmol/L 3.5-5.1 Chloride Level (test code=Chloride Level) 98 mmol/L 98-105 CO2 (test code=CO2) 25 mmol/L 22-29 Anion Gap (test code=Anion Gap) 12 mmol/L 7-16 BUN (test code=BUN) 9.20 mg/dL 6.00-20.00 Creatinine Level (test code=Creatinine Level) 0.60 mg/dL 0.70-1.20 BUN/Creat Ratio (test code=BUN/Creat Ratio) 15 Glucose Level (test code=Glucose Level) 299 mg/dL 70-115 Calcium Level (test code=Calcium Level) 8.5 mg/dL 8.3-10.5 eGFR AA (test code=eGFR AA) >60 mL/min/1.73 m2 eGFR (estimated Glomerular Filtration Rate) is an estimated value, calculated from the patient's serum creatinine using the MDRD equation. It is NOT the patient's actual GFR. The eGFR provides a more clinically useful measure of kidney disease than serum creatinine alone.This calculation takes sex and race into account, if the information is provided. If the race is not provided, and the patient is -[place], multiply by 1.212. If sex is not provided, and the patient is female, multiply by 0.742. Results for patients <18 years of age have not been validated by the MDRD study and should be interpreted with caution. eGFR Result Interpretation:eGFR > or=60 is in the Normal RangeeGFR < 60 may mean kidney diseaseeGFR < 15 may mean kidney failure Ranges recommended by the National Kidney Foundation, http://nkdep.nih.gov Basic Metabolic [id number] 05:39:05* Test Item Value Reference Range Comments Sodium Level (test code=Sodium Level) 135.0 mmol/L 135.0-145.0 Potassium Level (test code=Potassium Level) 4.5 mmol/L 3.5-5.1 Chloride Level (test code=Chloride Level) 98 mmol/L 98-105 CO2 (test code=CO2) 25 mmol/L 22-29 Anion Gap (test code=Anion Gap) 12 mmol/L 7-16 BUN (test code=BUN) 9.20 mg/dL 6.00-20.00 Creatinine Level (test code=Creatinine Level) 0.60 mg/dL 0.70-1.20 BUN/Creat Ratio (test code=BUN/Creat Ratio) 15 Glucose Level (test code=Glucose Level) 299 mg/dL 70-115 Calcium Level (test code=Calcium Level) 8.5 mg/dL 8.3-10.5 eGFR AA (test code=eGFR AA) >60 mL/min/1.73 m2 eGFR (estimated Glomerular Filtration Rate) is an estimated value, calculated from the patient's serum creatinine using the MDRD equation. It is NOT the patient's actual GFR. The eGFR provides a more clinically useful measure of kidney disease than serum creatinine alone.This calculation takes sex and race into account, if the information is provided. If the race is not provided, and the patient is -[place], multiply by 1.212. If sex is not provided, and the patient is female, multiply by 0.742. Results for patients <18 years of age have not been validated by the MDRD study and should be interpreted with caution. eGFR Result Interpretation:eGFR > or=60 is in the Normal RangeeGFR < 60 may mean kidney diseaseeGFR < 15 may mean kidney failure Ranges recommended by the National Kidney Foundation, http://nkdep.nih.gov eGFR Non-AA (test code=eGFR Non-AA) >60.00 mL/min/1.73 m2 eGFR (estimated Glomerular Filtration Rate) is an estimated value, calculated from the patient's serum creatinine using the MDRD equation. It is NOT the patient's actual GFR. The eGFR provides a more clinically useful measure of kidney disease than serum creatinine alone.This calculation takes sex and race into account, if the information is provided. If the race is not provided, and the patient is -[place], multiply by 1.212. If sex is not provided, and the patient is female, multiply by 0.742. Results for patients <18 years of age have not been validated by the MDRD study and should be interpreted with caution. eGFR Result Interpretation:eGFR > or=60 is in the Normal RangeeGFR < 60 may mean kidney diseaseeGFR < 15 may mean kidney failure Ranges recommended by the National Kidney Foundation, http://nkdep.nih.gov Complete Blood Count without [id number] 05:07:31* Test Item Value Reference Range Comments WBC (test code=WBC) 15.1 x10 4.4-10.5 RBC (test code=RBC) 3.63 x10 4.10-5.70 Hgb (test code=Hgb) 9.1 g/dL 13.4-17.4 Hct (test code=Hct) 30.0 % 38.7-52.0 MCV (test code=MCV) 82.60 fL 80.00-100.00 MCH (test code=MCH) 25.1 pg 27.0-32.5 MCHC (test code=MCHC) 30.30 g/dL 32.00-37.50 RDW CV (test code=RDW CV) 16.2 % 11.5-14.5 Platelets (test code=Platelets) 685.0 x10 140.0-440.0 MPV (test code=MPV) 9.2 fL nRBC (test code=nRBC) 0 NRBC Abs (test code=NRBC Abs) 0.00 x10 IPF (test code=IPF) 0 % Drugs of Abuse Urine [id number] 01:09:36* Test Item Value Reference Range Comments Amphetamine Screen Ur (test code=Amphetamine Screen Ur) Negative Negative For diagnostic purposes only. Positive results should always be assessed in conjunction with a patient's medical history. Barbiturate Screen Ur (test code=Barbiturate Screen Ur) Negative Negative Benzodiazepines Ur (test code=Benzodiazepines Ur) Negative Negative Cocaine Screen Ur (test code=Cocaine Screen Ur) Negative Negative U Methadone (test code=U Methadone) Negative Negative Opiate Screen Ur (test code=Opiate Screen Ur) POSITIVE Negative U PCP Scrn (test code=U PCP Scrn) Negative Negative U Propoxyphene (test code=U Propoxyphene) Negative Negative Cannabinoid Screen Ur (test code=Cannabinoid Screen Ur) POSITIVE Negative POC [id number] 21:19:06* Test Item Value Reference Range Comments Glucose POC (test code=Glucose POC) 376 mg/dL 70-115 If you consider your patient critically ill, the Nitish-Accu Check Infrom II meter should not be used for Glucose determination. Draw a venous Glucose and send to the main Lab for analysis. Red Blood Cells [id number] 19:22:25* Test Item Value Reference Range Comments # of Units (test code=# of Units) 2 RBC Trn Reason (test code=RBC Trn Reason) Surgery RBC Product Ready (test code=RBC Product Ready) RBC Ready 3C ABSC [id number] 19:14:26* Test Item Value Reference Range Comments SC1 IS (test code=SC1 IS) NT SC2 IS (test code=SC2 IS) NT SC3 IS (test code=SC3 IS) NT SC1 37 (test code=SC1 37) 0 SC2 37 (test code=SC2 37) 0 SC3 37 (test code=SC3 37) 0 SC1 AHG (test code=SC1 AHG) 0 SC2 AHG (test code=SC2 AHG) 0 SC3 AHG (test code=SC3 AHG) 0 SC1 CC (test code=SC1 CC) 2+ SC2 CC (test code=SC2 CC) 2+ SC3 CC (test code=SC3 CC) 2+ Antibody Screen (3C) (test code=Antibody Screen (3C)) Negative ABSC Hx [id number]/[id number] 18:37:56O [id number] 18:36:35* Test Item Value Reference Range Comments Previous History (test code=Previous History) Yes Prev History BBID (test code=BBID) [id number] Methodology (test code=Methodology) Test-Tube(TT) Anti-A (test code=Anti-A) 0 Anti-B (test code=Anti-B) 0 Anti-D (test code=Anti-D) 4+ DCon (test code=DCon) NT A1 (test code=A1) 4+ B cells (test code=B cells) 4+ ABORh (test code=ABORh) O POS POC [id number] 16:22:41* Test Item Value Reference Range Comments Glucose POC (test code=Glucose POC) 327 mg/dL 70-115 Notify RN or MDIf you consider your patient critically ill, the Nitish-Accu Check Infrom II meter should not be used for Glucose determination. Draw a venous Glucose and send to the main Lab for analysis. POC [id number] 11:16:36* Test Item Value Reference Range Comments Glucose POC (test code=Glucose POC) 351 mg/dL 70-115 Notify RN or MDIf you consider your patient critically ill, the Nitish-Accu Check Infrom II meter should not be used for Glucose determination. Draw a venous Glucose and send to the main Lab for analysis. Erythrocyte Sedimentation Rate [id number] 08:15:41* Test Item Value Reference Range Comments ESR STAT (test code=ESR STAT) 129 mm/hr 0-9 POC [id number] 07:43:40* Test Item Value Reference Range Comments Glucose POC (test code=Glucose POC) 338 mg/dL 70-115 Notify RN or MDIf you consider your patient critically ill, the Nitish-Accu Check Infrom II meter should not be used for Glucose determination. Draw a venous Glucose and send to the main Lab for analysis. Complete Blood Count without [id number] 07:10:35* Test Item Value Reference Range Comments WBC (test code=WBC) 12.8 x10 4.4-10.5 RBC (test code=RBC) 3.55 x10 4.10-5.70 Hgb (test code=Hgb) 8.9 g/dL 13.4-17.4 Hct (test code=Hct) 29.1 % 38.7-52.0 MCV (test code=MCV) 82.00 fL 80.00-100.00 MCH (test code=MCH) 25.1 pg 27.0-32.5 MCHC (test code=MCHC) 30.60 g/dL 32.00-37.50 RDW CV (test code=RDW CV) 16.1 % 11.5-14.5 Platelets (test code=Platelets) 690.0 x10 140.0-440.0 MPV (test code=MPV) 9.0 fL nRBC (test code=nRBC) 0 NRBC Abs (test code=NRBC Abs) 0.00 x10 IPF (test code=IPF) 0 % Basic Metabolic [id number] 07:07:06* Test Item Value Reference Range Comments Sodium Level (test code=Sodium Level) 134.0 mmol/L 135.0-145.0 Potassium Level (test code=Potassium Level) 4.8 mmol/L 3.5-5.1 Chloride Level (test code=Chloride Level) 99 mmol/L 98-105 CO2 (test code=CO2) 22 mmol/L 22-29 Anion Gap (test code=Anion Gap) 13 mmol/L 7-16 BUN (test code=BUN) 12.30 mg/dL 6.00-20.00 Creatinine Level (test code=Creatinine Level) 0.70 mg/dL 0.70-1.20 BUN/Creat Ratio (test code=BUN/Creat Ratio) 18 Glucose Level (test code=Glucose Level) 329 mg/dL 70-115 Calcium Level (test code=Calcium Level) 8.7 mg/dL 8.3-10.5 C Reactive [id number] 07:07:06* Test Item Value Reference Range Comments CRP (test code=CRP) 187.3 mg/L 0.0-5.0 Basic Metabolic [id number] 07:07:06* Test Item Value Reference Range Comments Sodium Level (test code=Sodium Level) 134.0 mmol/L 135.0-145.0 Potassium Level (test code=Potassium Level) 4.8 mmol/L 3.5-5.1 Chloride Level (test code=Chloride Level) 99 mmol/L 98-105 CO2 (test code=CO2) 22 mmol/L 22-29 Anion Gap (test code=Anion Gap) 13 mmol/L 7-16 BUN (test code=BUN) 12.30 mg/dL 6.00-20.00 Creatinine Level (test code=Creatinine Level) 0.70 mg/dL 0.70-1.20 BUN/Creat Ratio (test code=BUN/Creat Ratio) 18 Glucose Level (test code=Glucose Level) 329 mg/dL 70-115 Calcium Level (test code=Calcium Level) 8.7 mg/dL 8.3-10.5 eGFR AA (test code=eGFR AA) >60 mL/min/1.73 m2 eGFR (estimated Glomerular Filtration Rate) is an estimated value, calculated from the patient's serum creatinine using the MDRD equation. It is NOT the patient's actual GFR. The eGFR provides a more clinically useful measure of kidney disease than serum creatinine alone.This calculation takes sex and race into account, if the information is provided. If the race is not provided, and the patient is -[place], multiply by 1.212. If sex is not provided, and the patient is female, multiply by 0.742. Results for patients <18 years of age have not been validated by the MDRD study and should be interpreted with caution. eGFR Result Interpretation:eGFR > or=60 is in the Normal RangeeGFR < 60 may mean kidney diseaseeGFR < 15 may mean kidney failure Ranges recommended by the National Kidney Foundation, http://nkdep.nih.gov Basic Metabolic [id number] 07:07:06* Test Item Value Reference Range Comments Sodium Level (test code=Sodium Level) 134.0 mmol/L 135.0-145.0 Potassium Level (test code=Potassium Level) 4.8 mmol/L 3.5-5.1 Chloride Level (test code=Chloride Level) 99 mmol/L 98-105 CO2 (test code=CO2) 22 mmol/L 22-29 Anion Gap (test code=Anion Gap) 13 mmol/L 7-16 BUN (test code=BUN) 12.30 mg/dL 6.00-20.00 Creatinine Level (test code=Creatinine Level) 0.70 mg/dL 0.70-1.20 BUN/Creat Ratio (test code=BUN/Creat Ratio) 18 Glucose Level (test code=Glucose Level) 329 mg/dL 70-115 Calcium Level (test code=Calcium Level) 8.7 mg/dL 8.3-10.5 eGFR AA (test code=eGFR AA) >60 mL/min/1.73 m2 eGFR (estimated Glomerular Filtration Rate) is an estimated value, calculated from the patient's serum creatinine using the MDRD equation. It is NOT the patient's actual GFR. The eGFR provides a more clinically useful measure of kidney disease than serum creatinine alone.This calculation takes sex and race into account, if the information is provided. If the race is not provided, and the patient is -[place], multiply by 1.212. If sex is not provided, and the patient is female, multiply by 0.742. Results for patients <18 years of age have not been validated by the MDRD study and should be interpreted with caution. eGFR Result Interpretation:eGFR > or=60 is in the Normal RangeeGFR < 60 may mean kidney diseaseeGFR < 15 may mean kidney failure Ranges recommended by the National Kidney Foundation, http://nkdep.nih.gov eGFR Non-AA (test code=eGFR Non-AA) >60.00 mL/min/1.73 m2 eGFR (estimated Glomerular Filtration Rate) is an estimated value, calculated from the patient's serum creatinine using the MDRD equation. It is NOT the patient's actual GFR. The eGFR provides a more clinically useful measure of kidney disease than serum creatinine alone.This calculation takes sex and race into account, if the information is provided. If the race is not provided, and the patient is -[place], multiply by 1.212. If sex is not provided, and the patient is female, multiply by 0.742. Results for patients <18 years of age have not been validated by the MDRD study and should be interpreted with caution. eGFR Result Interpretation:eGFR > or=60 is in the Normal RangeeGFR < 60 may mean kidney diseaseeGFR < 15 may mean kidney failure Ranges recommended by the National Kidney Foundation, http://nkdep.nih.gov POC [id number] 21:54:36* Test Item Value Reference Range Comments Glucose POC (test code=Glucose POC) 281 mg/dL 70-115 Notify RN or MDIf you consider your patient critically ill, the Nitish-Accu Check Infrom II meter should not be used for Glucose determination. Draw a venous Glucose and send to the main Lab for analysis. POC [id number] 16:45:59* Test Item Value Reference Range Comments Glucose POC (test code=Glucose POC) 246 mg/dL 70-115 Notify RN or MDIf you consider your patient critically ill, the Nitish-Accu Check Infrom II meter should not be used for Glucose determination. Draw a venous Glucose and send to the main Lab for analysis. Blood [id number] 15:01:47No growth at 5 days.Urinalysis Microscopic 2019-04-04 12:52:27* Test Item Value Reference Range Comments UA WBC (test code=UA WBC) 20-29 0-5 UA RBC (test code=UA RBC) 0-5 0-5 UA Bacteria (test code=UA Bacteria) Profuse UA Squam Epithelial (test code=UA Squam Epithelial) 0-5 Urinalysis with Culture, if [id number] 12:37:15* Test Item Value Reference Range Comments UA Color (test code=UA Color) YELLO Yellow UA Appear (test code=UA Appear) CLEAR Clear UA pH (test code=UA pH) 6.5 UA Spec Grav (test code=UA Spec Grav) 1.032 1.001-1.035 UA Glucose (test code=UA Glucose) 1000 mg/dL Negative UA Bili (test code=UA Bili) NEG Negative UA Ketones (test code=UA Ketones) 5 mg/dL Negative UA Blood (test code=UA Blood) 25 cells/mcL Negative UA Protein (test code=UA Protein) NEG Negative UA Urobilinogen (test code=UA Urobilinogen) 1 mg/dL >0.2 UA Nitrite (test code=UA Nitrite) POS Negative UA Leuk Est (test code=UA Leuk Est) NEG Negative UA Micro Ind? (test code=UA Micro Ind?) Indicated Not Indicated Result created by rule [email or web address]_MICRO_IND Comprehensive Metabolic [id number] 11:57:22* Test Item Value Reference Range Comments Sodium Level (test code=Sodium Level) 135.0 mmol/L 135.0-145.0 Potassium Level (test code=Potassium Level) 4.5 mmol/L 3.5-5.1 Chloride Level (test code=Chloride Level) 96 mmol/L 98-105 CO2 (test code=CO2) 28 mmol/L 22-29 Anion Gap (test code=Anion Gap) 11 mmol/L 7-16 BUN (test code=BUN) 8.70 mg/dL 6.00-20.00 Creatinine Level (test code=Creatinine Level) 0.60 mg/dL 0.70-1.20 BUN/Creat Ratio (test code=BUN/Creat Ratio) 14 Glucose Level (test code=Glucose Level) 478 mg/dL 70-115 Critical results called to SCOTTY PEREZ RN at 04/04/2019 11:55:00 CDT by . Read back and verified? YES Calcium Level (test code=Calcium Level) 8.7 mg/dL 8.3-10.5 Alk Phos (test code=Alk Phos) 331 U/L 40-129 Bilirubin Total (test code=Bilirubin Total) 0.3 mg/dL 0.1-0.9 Albumin Level (test code=Albumin Level) 3.1 g/dL 3.5-5.2 Protein Total (test code=Protein Total) 7.6 g/dL 6.4-8.3 ALT (test code=ALT) 20 U/L 1-41 AST (test code=AST) 12 U/L 1-40 Globulin (test code=Globulin) 4.5 g/dL 2.9-3.1 A/G Ratio (test code=A/G Ratio) 0.7 ratio eGFR AA (test code=eGFR AA) >60 mL/min/1.73 m2 eGFR (estimated Glomerular Filtration Rate) is an estimated value, calculated from the patient's serum creatinine using the MDRD equation. It is NOT the patient's actual GFR. The eGFR provides a more clinically useful measure of kidney disease than serum creatinine alone.This calculation takes sex and race into account, if the information is provided. If the race is not provided, and the patient is -[place], multiply by 1.212. If sex is not provided, and the patient is female, multiply by 0.742. Results for patients <18 years of age have not been validated by the MDRD study and should be interpreted with caution. eGFR Result Interpretation:eGFR > or=60 is in the Normal RangeeGFR < 60 may mean kidney diseaseeGFR < 15 may mean kidney failure Ranges recommended by the National Kidney Foundation, http://nkdep.nih.gov Comprehensive Metabolic [id number] 11:57:22* Test Item Value Reference Range Comments Sodium Level (test code=Sodium Level) 135.0 mmol/L 135.0-145.0 Potassium Level (test code=Potassium Level) 4.5 mmol/L 3.5-5.1 Chloride Level (test code=Chloride Level) 96 mmol/L 98-105 CO2 (test code=CO2) 28 mmol/L 22-29 Anion Gap (test code=Anion Gap) 11 mmol/L 7-16 BUN (test code=BUN) 8.70 mg/dL 6.00-20.00 Creatinine Level (test code=Creatinine Level) 0.60 mg/dL 0.70-1.20 BUN/Creat Ratio (test code=BUN/Creat Ratio) 14 Glucose Level (test code=Glucose Level) 478 mg/dL 70-115 Critical results called to SCOTTY PEREZ RN at 04/04/2019 11:55:00 CDT by . Read back and verified? YES Calcium Level (test code=Calcium Level) 8.7 mg/dL 8.3-10.5 Alk Phos (test code=Alk Phos) 331 U/L 40-129 Bilirubin Total (test code=Bilirubin Total) 0.3 mg/dL 0.1-0.9 Albumin Level (test code=Albumin Level) 3.1 g/dL 3.5-5.2 Protein Total (test code=Protein Total) 7.6 g/dL 6.4-8.3 ALT (test code=ALT) 20 U/L 1-41 AST (test code=AST) 12 U/L 1-40 Globulin (test code=Globulin) 4.5 g/dL 2.9-3.1 A/G Ratio (test code=A/G Ratio) 0.7 ratio eGFR AA (test code=eGFR AA) >60 mL/min/1.73 m2 eGFR (estimated Glomerular Filtration Rate) is an estimated value, calculated from the patient's serum creatinine using the MDRD equation. It is NOT the patient's actual GFR. The eGFR provides a more clinically useful measure of kidney disease than serum creatinine alone.This calculation takes sex and race into account, if the information is provided. If the race is not provided, and the patient is -[place], multiply by 1.212. If sex is not provided, and the patient is female, multiply by 0.742. Results for patients <18 years of age have not been validated by the MDRD study and should be interpreted with caution. eGFR Result Interpretation:eGFR > or=60 is in the Normal RangeeGFR < 60 may mean kidney diseaseeGFR < 15 may mean kidney failure Ranges recommended by the National Kidney Foundation, http://nkdep.nih.gov Comprehensive Metabolic [id number] 11:57:22* Test Item Value Reference Range Comments Sodium Level (test code=Sodium Level) 135.0 mmol/L 135.0-145.0 Potassium Level (test code=Potassium Level) 4.5 mmol/L 3.5-5.1 Chloride Level (test code=Chloride Level) 96 mmol/L 98-105 CO2 (test code=CO2) 28 mmol/L 22-29 Anion Gap (test code=Anion Gap) 11 mmol/L 7-16 BUN (test code=BUN) 8.70 mg/dL 6.00-20.00 Creatinine Level (test code=Creatinine Level) 0.60 mg/dL 0.70-1.20 BUN/Creat Ratio (test code=BUN/Creat Ratio) 14 Glucose Level (test code=Glucose Level) 478 mg/dL 70-115 Critical results called to SCOTTY PEREZ RN at 04/04/2019 11:55:00 CDT by . Read back and verified? YES Calcium Level (test code=Calcium Level) 8.7 mg/dL 8.3-10.5 Alk Phos (test code=Alk Phos) 331 U/L 40-129 Bilirubin Total (test code=Bilirubin Total) 0.3 mg/dL 0.1-0.9 Albumin Level (test code=Albumin Level) 3.1 g/dL 3.5-5.2 Protein Total (test code=Protein Total) 7.6 g/dL 6.4-8.3 ALT (test code=ALT) 20 U/L 1-41 AST (test code=AST) 12 U/L 1-40 Globulin (test code=Globulin) 4.5 g/dL 2.9-3.1 A/G Ratio (test code=A/G Ratio) 0.7 ratio eGFR AA (test code=eGFR AA) >60 mL/min/1.73 m2 eGFR (estimated Glomerular Filtration Rate) is an estimated value, calculated from the patient's serum creatinine using the MDRD equation. It is NOT the patient's actual GFR. The eGFR provides a more clinically useful measure of kidney disease than serum creatinine alone.This calculation takes sex and race into account, if the information is provided. If the race is not provided, and the patient is -[place], multiply by 1.212. If sex is not provided, and the patient is female, multiply by 0.742. Results for patients <18 years of age have not been validated by the MDRD study and should be interpreted with caution. eGFR Result Interpretation:eGFR > or=60 is in the Normal RangeeGFR < 60 may mean kidney diseaseeGFR < 15 may mean kidney failure Ranges recommended by the National Kidney Foundation, http://nkdep.nih.gov eGFR Non-AA (test code=eGFR Non-AA) >60.00 mL/min/1.73 m2 eGFR (estimated Glomerular Filtration Rate) is an estimated value, calculated from the patient's serum creatinine using the MDRD equation. It is NOT the patient's actual GFR. The eGFR provides a more clinically useful measure of kidney disease than serum creatinine alone.This calculation takes sex and race into account, if the information is provided. If the race is not provided, and the patient is -[place], multiply by 1.212. If sex is not provided, and the patient is female, multiply by 0.742. Results for patients <18 years of age have not been validated by the MDRD study and should be interpreted with caution. eGFR Result Interpretation:eGFR > or=60 is in the Normal RangeeGFR < 60 may mean kidney diseaseeGFR < 15 may mean kidney failure Ranges recommended by the National Kidney Foundation, http://nkdep.nih.gov Erythrocyte Sedimentation Rate [id number] 11:41:50* Test Item Value Reference Range Comments ESR STAT (test code=ESR STAT) 113 mm/hr 0-9 Lactic Acid, Plasma (Venous)2019-04-04 11:32:31* Test Item Value Reference Range Comments Lactic Acid, Plasma (Venous) (test code=Lactic Acid, Plasma (Venous)) 1.6 mmol/L 0.5-1.9 Complete Blood Count with [id number] 11:22:31* Test Item Value Reference Range Comments WBC (test code=WBC) 14.1 x10 4.4-10.5 RBC (test code=RBC) 3.64 x10 4.10-5.70 Hgb (test code=Hgb) 9.1 g/dL 13.4-17.4 MCV (test code=MCV) 81.90 fL 80.00-100.00 Hct (test code=Hct) 29.8 % 38.7-52.0 MCHC (test code=MCHC) 30.50 g/dL 32.00-37.50 MCH (test code=MCH) 25.0 pg 27.0-32.5 RDW CV (test code=RDW CV) 15.9 % 11.5-14.5 Platelets (test code=Platelets) 575.0 x10 140.0-440.0 MPV (test code=MPV) 9.1 fL Slide Review (test code=Slide Review) Auto Auto Result created by [email or web address]_REV_AUTO nRBC (test code=nRBC) 0 NRBC Abs (test code=NRBC Abs) 0.00 x10 IPF (test code=IPF) 0 % Automated [id number] 11:22:31* Test Item Value Reference Range Comments Neutro Auto (test code=Neutro Auto) 70.9 % 36.0-70.0 Lymph Auto (test code=Lymph Auto) 20.0 % 12.0-44.0 Wasatch Auto (test code=Wasatch Auto) 7.1 % 0.0-11.0 Eos, Auto (test code=Eos, Auto) 1.1 % 0.0-7.0 Basophil Auto (test code=Basophil Auto) 0.3 % 0.0-2.0 Neutro Absolute (test code=Neutro Absolute) 10.0 x10 1.6-7.4 Lymph Absolute (test code=Lymph Absolute) 2.83 x10 .50-4.60 Wasatch Absolute (test code=Wasatch Absolute) 1.00 x10 .00-1.20 Eos Absolute (test code=Eos Absolute) 0.15 x10 0.00-0.74 Baso Absolute (test code=Baso Absolute) 0.04 x10 0.00-0.21 IG [id number] 11:22:31* Test Item Value Reference Range Comments IG (test code=IG) 0.6 % 0.0-5.0 IG Abs (test code=IG Abs) 0 x10 Wound Culture w/ Gram [id number] 10:17:52* Test Item Value Reference Range Comments ORGANISM (test code=ORGANISM) Methicillin-Resistant Staphylococcus aureus Chloramphenicol (test code=Chlor) Ciprofloxacin (test code=Cipro) Clindamycin (test code=Clinda) Erythromycin (test code=Eryth) Gentamicin (test code=Gent) Levofloxacin (test code=Levo) Linezolid (test code=Linez) Oxacillin (test code=Ox) Rifampin (test code=Rif) Tetracycline (test code=Tetra) Trimethoprim/Sulfa (test code=SXT) Vancomycin (test code=Vanc) Amended Final Report (test code=Amended Final Report) Few Methicillin-Resistant Staphylococcus aureus Contact isolation recommended Moderate Diphtheroids No Anaerobes Isolated at 3 Days Gram Stain Report (test code=Gram Stain Report) Rare White Blood Cells No organisms seen. Wound Culture w/ Gram [id number] 09:27:59* Test Item Value Reference Range Comments ORGANISM (test code=ORGANISM) Methicillin-Resistant Staphylococcus aureus Chloramphenicol (test code=Chlor) Ciprofloxacin (test code=Cipro) Clindamycin (test code=Clinda) Erythromycin (test code=Eryth) Gentamicin (test code=Gent) Levofloxacin (test code=Levo) Linezolid (test code=Linez) Oxacillin (test code=Ox) Rifampin (test code=Rif) Tetracycline (test code=Tetra) Trimethoprim/Sulfa (test code=SXT) Vancomycin (test code=Vanc) Final Report (test code=Final Report) Few Methicillin-Resistant Staphylococcus aureus Moderate Diphtheroids No Anaerobes Isolated at 3 Days Gram Stain Report (test code=Gram Stain Report) Rare White Blood Cells No organisms seen. Blood [id number] 00:02:07No growth at 5 days.Blood [id number] 00:01:26No growth at [address] Spine Thoracic w/o [id number] 23:05:50 Patient: JADE BOX am Date/Time01/23/2019 22:53 CDTReason for ExamBack painReportCT THORACIC SPINE WI THOUT CONTRASTLocation: [id number] history painTechnique:Helical axial CT scan was performed. Coronal and sagittal reconstructions of the entire thoracic spin e were obtained. Exam was performed on an up-to-date helical CT scanner. Images were viewed in both bone and soft tissue windows. Evaluation of the intracanali cular soft tissues is limited due to the lack of intrathecal contrast.This exam was performed according to our departmental dose -optimization program, which in cludes automatic exposure control, adjustment of MA and/or KV according to patie nt size, and or use of iterative reconstruction technique.DLP: 2090 mGy*cmF INDINGS:There is no fracture, dislocation, listhesis, focal lytic or blastic les ion. No evidence of central spinal canal or foraminal stenosis.The paravertebral soft tissues are normal without evidence of paravertebral hematoma or mass.There is hypertrophic facet arthropathy at the mid spine more prominent on the right at T9-T10.IMPRESSION:No acute abnormality. Mild DJD. Final Dictated b y: MD Rowe Maria VDictated DT/TM: 01/23/2019 11:04 pmSigned by: MD Rowe Maria VSigned (Electronic Signature): 01/23/2019 11:05 pmCT Spine Lumbar w/o [id number] 23:03:48Patient: JADE BOX Date/Time01/23/2019 22:53 CDTReason for ExamBack painReportCT LUMBAR SPINE WITHOUT CONTRASTLocation: [id number] history painTechnique:Helical axial CT scan was performed. Coronal and sagittal reconstructions of the entire lumbar spine were obtained. Exam was performed on an up-to-date helical CT scanner. Images were viewed in both bone and soft tissue windows. Evaluation of the intracanalicular soft tissues is limited due to the lack of intrathecal contrast.This exam was performed according to our departmental dose -optimization program, which includes automatic exposure control, adjustment of MA and/or KV according to patient size, and or use of iterative reconstruction technique.DLP: 2090 mGy*cmFINDINGS:There is no fracture, dislocation, listhesis, focal lytic or blastic lesion. No evidence of central spinal canal or foraminal stenosis.The paravertebral soft tissues are normal without evidence of paravertebral hematoma or mass.Mild hypertrophic facet arthropathy is present throughout the spine.IMPRESSION:1. No acute lumbar spine abnormality. Mild facet arthritis.2. DJD and heterotopic calcifications noted at the hips and pelvis more on the left. Clinical correlation adam mmended. Final Dictated by: MD Rowe Maria VDictated DT/TM: 02/2019 11:00 pmSigned by: MD Rowe Maria VSigned (Electronic Signature): 11:03 pmCT Spine Cervical w/o [id number] 22:44:01Patient: JADE BOX Date/Time01/23/2019 22:40 CDTReason for ExamBack painReportCT CERVICAL SPINELoc ation: [id number] HISTORY: painTechnique:Helical axial CT scan of the cervical spine was performed. Coronal and sagittal images were reconstructed. Exam was p erformed on an up-to-date helical CT scanner. Images were viewed in both soft tissue and bone windows.This exam was performed according to our departmental do se -optimization program, which includes automatic exposure control, adjustment of mA and/or kV according to patient size, and/ or use of iterative reconstructi on technique.DLP: 568 mGy*cmFINDINGS: There is no evidence of fracture, disl ocation, subluxation. Alignment is normal. Soft tissues are normal. There are no paraspinal hematomas.There are no degenerative changes demonstrated.IMPRESSI ON:Normal exam. Final Dictated by: MD Rowe Maria VDictated DT/T M: 01/23/2019 10:42 pmSigned by: MD Rowe Maria VSigned (Electronic Signatur e): 01/23/2019 10:44 pmCT Pelvis w/o [id number] 18:22:47Patient: JADE LANGE II Date/Time01/09/2019 17:46 CDTReason for ExamSepsisReportCT SCAN OF THE PELVIS WITHOUT CONTRASTLocation: [id number] HISTORY: Sepsis. Pressure ulcersTECHNIQUE: Helical CT of the pelvis without IV contrast without complication. Exam perfor med without IV contrast has limited sensitivity for detection of mass or inflamm ation. Exam was performed on an up-to-date helical CT scanner. Coronal and sag ittal images were reconstructed.This exam was performed according to our [facility] ental dose- optimization program, which includes automatic exposure control, adj ustment of MA and/or KV according to patient size, and or use of iterative recon struction technique.DLP: 965 mGy*cmComparison study CT left hip and femur J an and CT pelvis January 01, 2018FINDINGS:On the left, deep large 4 cm pre ssure ulcers again noted lateral to the left femur greater trochanter and caudal to the left ischium. There is little interval change in the extensive heterotop ic calcification lateral to the left greater and caudal to the left ischial tube rosity. Soft tissue thickening of the lower aspect of the left greater gluteus a nd upper hamstring muscles is unchanged. Several small bubbles of subcutaneous e mphysema are seen within the ulcer best seen on axial images 98. On the right, e xtensive heterotopic calcification measuring approximately 10 x 5 x 4.7 cm is ag ain noted just caudal to the right ischial tuberosity. Scarring from prior press ure ulcers in the soft tissues is present adjacent to the right initial tuberosi ty and lateral to the right hip.This degree of periostitis and periosteal reacti on from pressure ulcers has high correlation to osteomyelitis.Left lower quadran t abdominal colostomy noted. Bladder, seminal vesicles, prostate bladder unremar kable. Bilateral enlarged groin lymph nodes again noted.IMPRESSION:1. Overall li ttle change in the deep pressure ulcers lateral to left femur greater trochanter and adjacent to the left ischial tuberosity, with extensive periosteal reaction and heterotopic bone formation.2. The findings have high correlation to osteomy elitis. Recommend correlation to clinical history and biopsy results. Final Dictated by: MD Rowe Maria VDictated DT/TM: 01/09/2019 6:03 pmSigned by: MD Rowe Maria VSigned (Electronic Signature): 01/09/2019 6:22 pmXR Chest 1 View CVAD Insertion [id number] 16:02:33Patient: JADE LANGE II Date/Time10/26/2018 15:30 CSTReason for ExamLine placementReportEXAM: XR Chest 1 View CVAD Insertion Follow-upHISTORY: Line placementLocation code R 16COMPARISON: Chest radiograph from 05/05/2018FINDINGS:Right arm PICC tip is in the distal SVC.Pleural thickening/small effusion at right lung base persists. Left lung is clear. Cardiomediastinal silhouette is normal.Osseous structures are unremarkabl e.IMPRESSION:Right arm PICC tip in distal SVC. Final Dictated by: Triston Girard MD, Rebecca FDictated DT/TM: 10/26/2018 4:01 pmSigned by: Saskia Teixeira MD, Rebecca FSigned (Electronic Signature): 10/26/2018 4:02 pmCT Femur w/o Contrast [id number] 23:52:32Patient: JADE LANGE II Date/Time10/17/2018 23:38 CSTReason for ExamOsteomyelitisReportEXAM: CT LEFT LOWER EXTREMITY WITHOUT CONTRASTINDICATION: OsteomyelitisCOMPARISON: None availableTECHNIQUE: Routine axial CT images of the left femur without intravenous contrast. Coronal and sagittal reformatted images were submitted for review.IV contrast: None DLP: 1897.3 mGy-cmFINDINGS:There is a soft tissue overlying the left greater trochanter measuring approximately 3 x 4.4 cm in diameter and 4.2 cm in depth. There is soft tissue thickening and edema involving the adjacent soft tissues. Significant heterotopic ossification is noted which is new compared to the prior examination. There is also periosteal reaction involving the proximal left femur/greater trochanter.There is a second soft tissue ulceration overlying the left ischial tuberosity measuring approximately 7.9 x 1.5 cm for depth of 5.4 cm. There is significant soft tissue thickening and intramuscular edema. There is heterotopic ossification and periosteal reaction surrounding the left ischium with osseous erosion consistent with osteomyelitis.There are multiple enlarged lymph nodes within the left groin with the largest measuring 2.4 x 1.9 cm which are likely reactive. There is an colostomy noted in the left lower quadrant ot herwise the visualized small and large bowel is unremarkable. The urinary bladde r is unremarkable.IMPRESSION:1. Osseous erosion involving the ACL tuberosity c onsistent with osteomyelitis. Significant periosteal reaction involving the left issue him as well as the left proximal femur/greater trochanter.2. Large soft tissue ulcerations overlying the left greater trochanter and left issue and as detailed above.3. Large left inguinal lymph node which is likely reactive.LOCA TION: [id number] CT exam was performed according to our departmental dose optimizat ion program, which includes automated exposure control, adjustment of the mA and /or kV according to the patient size and/or use of iterative reconstructive tech nique. Final Dictated by: MD Andrade Melanie CDictated DT/TM: 09/21 11:44 pmSigned by: MD Andrade Melanie CSigned (Electronic Signature): 10/17/2018 11:52 pmBLOOD [id number] 19:01:00* Test Item Value Reference Range Comments CULTURE (BEAKER) (test rael=6719) No growth in 5 days BLOOD [id number] 19:01:00* Test Item Value Reference Range Comments CULTURE (BEAKER) (test jnls=4901) No growth in 5 days BLOOD [id number] 07:01:00* Test Item Value Reference Range Comments CULTURE (BEAKER) (test bpbe=2281) No growth in 5 days BLOOD [id number] 07:01:00* Test Item Value Reference Range Comments CULTURE (BEAKER) (test vpeh=5035) No growth in 5 days POCT-GLUCOSE [id number] 11:48:00* Test Item Value Reference Range Comments POC-GLUCOSE METER (BEAKER) (test vvfn=9066) 151 mg/dL 70-110 TESTED AT [facility] [address] [facility] [address] POCT-GLUCOSE [id number] 08:10:00* Test Item Value Reference Range Comments POC-GLUCOSE METER (BEAKER) (test dacd=5141) 178 mg/dL 70-110 TESTED AT [facility] [address] [facility] [address] [id number] 06:47:00* Test Item Value Reference Range Comments PHOSPHORUS (BEAKER) (test hmzn=481) 4.6 mg/dL 2.3-4.7 [id number] 06:47:00* Test Item Value Reference Range Comments MAGNESIUM (BEAKER) (test irui=838) 2.1 mg/dL 1.6-2.6 BASIC METABOLIC [id number] 06:47:00* Test Item Value Reference Range Comments SODIUM (BEAKER) (test yvoa=633) 139 meq/L 136-145 POTASSIUM (BEAKER) (test vasa=674) 4.0 meq/L 3.5-5.1 CHLORIDE (BEAKER) (test ilnm=826) 104 meq/L 98-107 CO2 (BEAKER) (test soes=367) 27 meq/L 22-29 BLOOD UREA NITROGEN (BEAKER) (test ebzv=185) 15 mg/dL 7-21 CREATININE (BEAKER) (test ickw=153) 0.88 mg/dL 0.57-1.25 GLUCOSE RANDOM (BEAKER) (test pbhe=266) 192 mg/dL 70-105 CALCIUM (BEAKER) (test bkrc=244) 9.4 mg/dL 8.4-10.2 EGFR (BEAKER) (test viym=4562) 98 mL/min/1.73 sq m ESTIMATED GFR IS NOT ACCURATE CREATININE CLEARANCE IN PREDICTING GLOMERULAR FILTRATION RATE. ESTIMATED GFR IS NOT APPLICABLE FOR DIALYSIS PATIENTS. HEPATIC FUNCTION [id number] 06:47:00* Test Item Value Reference Range Comments TOTAL PROTEIN (BEAKER) (test dubb=094) 8.0 gm/dL 6.0-8.3 ALBUMIN (BEAKER) (test glzk=7955) 3.5 g/dL 3.5-5.0 BILIRUBIN TOTAL (BEAKER) (test njrh=430) 0.3 mg/dL 0.2-1.2 BILIRUBIN DIRECT (BEAKER) (test vngn=633) 0.1 mg/dL 0.1-0.5 ALKALINE PHOSPHATASE (BEAKER) (test jvoz=420) 176 U/L 40-150 AST (SGOT) (BEAKER) (test ljro=499) 22 U/L 5-34 ALT (SGPT) (BEAKER) (test jazi=853) 39 U/L 6-55 CBC W/PLT COUNT & AUTO [id number] 06:09:00* Test Item Value Reference Range Comments WHITE BLOOD CELL COUNT (BEAKER) (test kytq=131) 8.7 K/ L 3.5-10.5 RED BLOOD CELL COUNT (BEAKER) (test hzgz=564) 4.06 M/ L 4.63-6.08 HEMOGLOBIN (BEAKER) (test suhb=595) 10.8 GM/DL 13.7-17.5 HEMATOCRIT (BEAKER) (test jnme=779) 34.5 % 40.1-51.0 MEAN CORPUSCULAR VOLUME (BEAKER) (test ikve=481) 85.0 fL 79.0-92.2 MEAN CORPUSCULAR HEMOGLOBIN (BEAKER) (test gpii=210) 26.6 pg 25.7-32.2 MEAN CORPUSCULAR HEMOGLOBIN CONC (BEAKER) (test ddwk=785) 31.3 GM/DL 32.3-36.5 RED CELL DISTRIBUTION WIDTH (BEAKER) (test hmqi=878) 15.1 % 11.6-14.4 PLATELET COUNT (BEAKER) (test ptis=037) 490 K/CU MM 150-450 MEAN PLATELET VOLUME (BEAKER) (test hifs=705) 8.9 fL 9.4-12.4 NUCLEATED RED BLOOD CELLS (BEAKER) (test zwkt=402) 0 /100 WBC 0-0 NEUTROPHILS RELATIVE PERCENT (BEAKER) (test rvoi=885) 35 % LYMPHOCYTES RELATIVE PERCENT (BEAKER) (test pggx=699) 52 % MONOCYTES RELATIVE PERCENT (BEAKER) (test peos=054) 9 % EOSINOPHILS RELATIVE PERCENT (BEAKER) (test axuz=682) 4 % BASOPHILS RELATIVE PERCENT (BEAKER) (test tgha=985) 1 % NEUTROPHILS ABSOLUTE COUNT (BEAKER) (test hdin=672) 3.03 K/ L 1.78-5.38 LYMPHOCYTES ABSOLUTE COUNT (BEAKER) (test foyi=990) 4.49 K/ L 1.32-3.57 MONOCYTES ABSOLUTE COUNT (BEAKER) (test zbxf=709) 0.75 K/ L 0.30-0.82 EOSINOPHILS ABSOLUTE COUNT (BEAKER) (test shvl=878) 0.30 K/ L 0.04-0.54 BASOPHILS ABSOLUTE COUNT (BEAKER) (test cgvi=158) 0.07 K/ L 0.01-0.08 IMMATURE GRANULOCYTES-RELATIVE PERCENT (BEAKER) (test bppu=4502) 0 % 0-1 POCT-GLUCOSE [id number] 21:21:00* Test Item Value Reference Range Comments POC-GLUCOSE METER (BEAKER) (test jvoh=2976) 139 mg/dL 70-110 TESTED AT [facility] [address] [facility] [address] POCT-GLUCOSE [id number] 17:49:00* Test Item Value Reference Range Comments POC-GLUCOSE METER (BEAKER) (test aaob=7765) 167 mg/dL 70-110 TESTED AT [address] [address] POCT-GLUCOSE [id number] 11:34:00* Test Item Value Reference Range Comments POC-GLUCOSE METER (BEAKER) (test cvip=0921) 88 mg/dL 70-110 TESTED AT [address] [address] POCT-GLUCOSE [id number] 08:20:00* Test Item Value Reference Range Comments POC-GLUCOSE METER (BEAKER) (test npui=8937) 149 mg/dL 70-110 TESTED AT [place] [id number] [facility] [address] WOUND CULTURE + GRAM [id number] 07:29:00* Test Item Value Reference Range Comments CULTURE (BEAKER) (test wgyu=5553) 4+ Same organism has been isolated from cultures(s) of the same body site and collection date. Repeat identification and susceptibility testing performed only after consultation with the clinical microbiology laboratory.Refer to previous culture ofMethicillin resistant Staphylococcus aureus GRAM STAIN RESULT (BEAKER) (test htdq=1271) 4+ WBCs GRAM STAIN RESULT (BEAKER) (test wbyd=180773) 4+ gram positive cocci in clusters WOUND CULTURE + GRAM [id number] 07:26:00* Test Item Value Reference Range Comments CULTURE (BEAKER) (test wuoi=9414) METHICILLIN RESISTANT STAPHYLOCOCCUS AUREUS 4+ Methicillin resistant Staphylococcus aureus Clindamycin (test code=10) Erythromycin (test code=4) Linezolid (test code=40) Nitrofurantoin (test code=23) Oxacillin (test code=14) Rifampin (test code=43) Tetracycline (test code=2) Trimethoprim + Sulfamethoxazole (test code=47) Vancomycin (test code=13) GRAM STAIN RESULT (BEAKER) (test lbdw=5967) <1+ WBCs GRAM STAIN RESULT (BEAKER) (test xooa=979097) No organisms seen CBC W/PLT COUNT & AUTO [id number] 05:47:00* Test Item Value Reference Range Comments WHITE BLOOD CELL COUNT (BEAKER) (test fthl=270) 8.3 K/ L 3.5-10.5 RED BLOOD CELL COUNT (BEAKER) (test wjeu=093) 4.10 M/ L 4.63-6.08 HEMOGLOBIN (BEAKER) (test xnvq=865) 10.9 GM/DL 13.7-17.5 HEMATOCRIT (BEAKER) (test higi=010) 35.2 % 40.1-51.0 MEAN CORPUSCULAR VOLUME (BEAKER) (test ydfu=638) 85.9 fL 79.0-92.2 MEAN CORPUSCULAR HEMOGLOBIN (BEAKER) (test plec=896) 26.6 pg 25.7-32.2 MEAN CORPUSCULAR HEMOGLOBIN CONC (BEAKER) (test attg=109) 31.0 GM/DL 32.3-36.5 RED CELL DISTRIBUTION WIDTH (BEAKER) (test pern=248) 15.0 % 11.6-14.4 PLATELET COUNT (BEAKER) (test kfky=416) 447 K/CU MM 150-450 MEAN PLATELET VOLUME (BEAKER) (test skcj=960) 9.0 fL 9.4-12.4 NUCLEATED RED BLOOD CELLS (BEAKER) (test loas=493) 0 /100 WBC 0-0 NEUTROPHILS RELATIVE PERCENT (BEAKER) (test kgkp=676) 39 % LYMPHOCYTES RELATIVE PERCENT (BEAKER) (test izbz=052) 47 % MONOCYTES RELATIVE PERCENT (BEAKER) (test awzk=309) 8 % EOSINOPHILS RELATIVE PERCENT (BEAKER) (test yymz=380) 6 % BASOPHILS RELATIVE PERCENT (BEAKER) (test ykvu=715) 1 % NEUTROPHILS ABSOLUTE COUNT (BEAKER) (test gyrf=791) 3.24 K/ L 1.78-5.38 LYMPHOCYTES ABSOLUTE COUNT (BEAKER) (test ldsy=276) 3.84 K/ L 1.32-3.57 MONOCYTES ABSOLUTE COUNT (BEAKER) (test zmjk=505) 0.63 K/ L 0.30-0.82 EOSINOPHILS ABSOLUTE COUNT (BEAKER) (test hhfy=483) 0.48 K/ L 0.04-0.54 BASOPHILS ABSOLUTE COUNT (BEAKER) (test twdt=042) 0.04 K/ L 0.01-0.08 IMMATURE GRANULOCYTES-RELATIVE PERCENT (BEAKER) (test ustg=3715) 0 % 0-1 [id number] 05:45:00* Test Item Value Reference Range Comments PHOSPHORUS (BEAKER) (test wptt=150) 4.9 mg/dL 2.3-4.7 [id number] 05:45:00* Test Item Value Reference Range Comments MAGNESIUM (BEAKER) (test simw=117) 2.1 mg/dL 1.6-2.6 BASIC METABOLIC [id number] 05:45:00* Test Item Value Reference Range Comments SODIUM (BEAKER) (test lgra=217) 141 meq/L 136-145 POTASSIUM (BEAKER) (test dmoi=403) 3.8 meq/L 3.5-5.1 CHLORIDE (BEAKER) (test duib=451) 104 meq/L 98-107 CO2 (BEAKER) (test rwye=284) 29 meq/L 22-29 BLOOD UREA NITROGEN (BEAKER) (test bliq=234) 11 mg/dL 7-21 CREATININE (BEAKER) (test echk=534) 0.66 mg/dL 0.57-1.25 GLUCOSE RANDOM (BEAKER) (test gwye=925) 120 mg/dL 70-105 CALCIUM (BEAKER) (test nggr=979) 9.6 mg/dL 8.4-10.2 EGFR (BEAKER) (test ldaw=9812) 137 mL/min/1.73 sq m ESTIMATED GFR IS NOT ACCURATE CREATININE CLEARANCE IN PREDICTING GLOMERULAR FILTRATION RATE. ESTIMATED GFR IS NOT APPLICABLE FOR DIALYSIS PATIENTS. HEPATIC FUNCTION [id number] 05:45:00* Test Item Value Reference Range Comments TOTAL PROTEIN (BEAKER) (test oiky=723) 8.2 gm/dL 6.0-8.3 ALBUMIN (BEAKER) (test nbst=9437) 3.6 g/dL 3.5-5.0 BILIRUBIN TOTAL (BEAKER) (test pggu=862) 0.4 mg/dL 0.2-1.2 BILIRUBIN DIRECT (BEAKER) (test bkfl=891) 0.2 mg/dL 0.1-0.5 ALKALINE PHOSPHATASE (BEAKER) (test mnjz=310) 187 U/L 40-150 AST (SGOT) (BEAKER) (test kxiy=184) 30 U/L 5-34 ALT (SGPT) (BEAKER) (test brcm=370) 49 U/L 6-55 POCT-GLUCOSE [id number] 21:59:00* Test Item Value Reference Range Comments POC-GLUCOSE METER (BEAKER) (test nxmy=0957) 120 mg/dL 70-110 TESTED AT [facility] [address] [facility] [address] POCT-GLUCOSE [id number] 17:59:00* Test Item Value Reference Range Comments POC-GLUCOSE METER (BEAKER) (test mbwe=3554) 97 mg/dL 70-110 TESTED AT [facility] [address] [facility] [address] VANCOMYCIN LEVEL, [id number] 16:57:00* Test Item Value Reference Range Comments VANCOMYCIN TROUGH (BEAKER) (test hwkl=565) 7.8 ug/mL 10.0-20.0 POCT-GLUCOSE [id number] 13:33:00* Test Item Value Reference Range Comments POC-GLUCOSE METER (BEAKER) (test norc=4694) 95 mg/dL 70-110 TESTED AT [place] [id number] [facility] [address] [id number] 13:19:00* Test Item Value Reference Range Comments PHOSPHORUS (BEAKER) (test nwdm=360) 4.3 mg/dL 2.3-4.7 [id number] 13:19:00* Test Item Value Reference Range Comments MAGNESIUM (BEAKER) (test ndfu=768) 2.1 mg/dL 1.6-2.6 BASIC METABOLIC [id number] 13:19:00* Test Item Value Reference Range Comments SODIUM (BEAKER) (test gzqw=127) 138 meq/L 136-145 POTASSIUM (BEAKER) (test qpmp=136) 4.0 meq/L 3.5-5.1 CHLORIDE (BEAKER) (test vhjr=777) 103 meq/L 98-107 CO2 (BEAKER) (test nsif=054) 27 meq/L 22-29 BLOOD UREA NITROGEN (BEAKER) (test oslh=938) 10 mg/dL 7-21 CREATININE (BEAKER) (test plup=320) 0.63 mg/dL 0.57-1.25 GLUCOSE RANDOM (BEAKER) (test vswt=487) 93 mg/dL 70-105 CALCIUM (BEAKER) (test ocsw=715) 9.0 mg/dL 8.4-10.2 EGFR (BEAKER) (test ykrk=2457) 144 mL/min/1.73 sq m ESTIMATED GFR IS NOT ACCURATE CREATININE CLEARANCE IN PREDICTING GLOMERULAR FILTRATION RATE. ESTIMATED GFR IS NOT APPLICABLE FOR DIALYSIS PATIENTS. HEPATIC FUNCTION [id number] 13:19:00* Test Item Value Reference Range Comments TOTAL PROTEIN (BEAKER) (test pxwd=534) 8.0 gm/dL 6.0-8.3 ALBUMIN (BEAKER) (test adrm=6296) 3.5 g/dL 3.5-5.0 BILIRUBIN TOTAL (BEAKER) (test tysc=029) 0.3 mg/dL 0.2-1.2 BILIRUBIN DIRECT (BEAKER) (test jqwr=091) 0.2 mg/dL 0.1-0.5 ALKALINE PHOSPHATASE (BEAKER) (test mnsm=226) 192 U/L 40-150 AST (SGOT) (BEAKER) (test vssk=670) 36 U/L 5-34 ALT (SGPT) (BEAKER) (test rfeh=651) 50 U/L 6-55 CBC W/PLT COUNT & AUTO [id number] 13:07:00* Test Item Value Reference Range Comments WHITE BLOOD CELL COUNT (BEAKER) (test qnry=484) 7.8 K/ L 3.5-10.5 RED BLOOD CELL COUNT (BEAKER) (test moft=871) 3.73 M/ L 4.63-6.08 HEMOGLOBIN (BEAKER) (test svyd=651) 10.1 GM/DL 13.7-17.5 HEMATOCRIT (BEAKER) (test taua=624) 32.1 % 40.1-51.0 MEAN CORPUSCULAR VOLUME (BEAKER) (test fjvf=923) 86.1 fL 79.0-92.2 MEAN CORPUSCULAR HEMOGLOBIN (BEAKER) (test qdfm=424) 27.1 pg 25.7-32.2 MEAN CORPUSCULAR HEMOGLOBIN CONC (BEAKER) (test qjin=464) 31.5 GM/DL 32.3-36.5 RED CELL DISTRIBUTION WIDTH (BEAKER) (test tzcp=165) 15.4 % 11.6-14.4 PLATELET COUNT (BEAKER) (test oxdr=122) 412 K/CU MM 150-450 MEAN PLATELET VOLUME (BEAKER) (test pome=587) 9.0 fL 9.4-12.4 NUCLEATED RED BLOOD CELLS (BEAKER) (test obry=960) 0 /100 WBC 0-0 NEUTROPHILS RELATIVE PERCENT (BEAKER) (test utcc=903) 37 % LYMPHOCYTES RELATIVE PERCENT (BEAKER) (test aaxz=985) 47 % MONOCYTES RELATIVE PERCENT (BEAKER) (test gcuf=278) 9 % EOSINOPHILS RELATIVE PERCENT (BEAKER) (test gtnh=405) 7 % BASOPHILS RELATIVE PERCENT (BEAKER) (test yedd=048) 1 % NEUTROPHILS ABSOLUTE COUNT (BEAKER) (test jhvw=740) 2.86 K/ L 1.78-5.38 LYMPHOCYTES ABSOLUTE COUNT (BEAKER) (test ljwd=785) 3.64 K/ L 1.32-3.57 MONOCYTES ABSOLUTE COUNT (BEAKER) (test rpzd=222) 0.69 K/ L 0.30-0.82 EOSINOPHILS ABSOLUTE COUNT (BEAKER) (test ijnd=451) 0.52 K/ L 0.04-0.54 BASOPHILS ABSOLUTE COUNT (BEAKER) (test hfxq=909) 0.04 K/ L 0.01-0.08 IMMATURE GRANULOCYTES-RELATIVE PERCENT (BEAKER) (test vdea=0131) 0 % 0-1 POCT-GLUCOSE [id number] 11:31:00* Test Item Value Reference Range Comments POC-GLUCOSE METER (BEAKER) (test yrep=9785) 162 mg/dL 70-110 TESTED AT [place] [id number] [facility] [address] POCT-GLUCOSE [id number] 08:18:00* Test Item Value Reference Range Comments POC-GLUCOSE METER (BEAKER) (test lyxi=0302) 219 mg/dL 70-110 TESTED AT [address] [address] POCT-GLUCOSE [id number] 21:40:00* Test Item Value Reference Range Comments POC-GLUCOSE METER (BEAKER) (test piup=0812) 130 mg/dL 70-110 TESTED AT [address] [address] POCT-GLUCOSE [id number] 20:11:00* Test Item Value Reference Range Comments POC-GLUCOSE METER (BEAKER) (test jazx=9247) 156 mg/dL 70-110 TESTED AT [address] [address] HEMOGLOBIN [id number] 19:32:00* Test Item Value Reference Range Comments HEMOGLOBIN A1C (BEAKER) (test kzma=466) 9.3 % 4.3-6.1 VANCOMYCIN LEVEL, [id number] 17:43:00* Test Item Value Reference Range Comments VANCOMYCIN TROUGH (BEAKER) (test shjy=942) 9.2 ug/mL 10.0-20.0 POCT-GLUCOSE [id number] 13:32:00* Test Item Value Reference Range Comments POC-GLUCOSE METER (BEAKER) (test suug=7432) 213 mg/dL 70-110 TESTED AT [place] [address] POCT-GLUCOSE [id number] 11:53:00* Test Item Value Reference Range Comments POC-GLUCOSE METER (BEAKER) (test xusq=3937) 283 mg/dL 70-110 TESTED AT [place] [id number] T4, [id number] 08:37:00* Test Item Value Reference Range Comments FREE T4 (BEAKER) (test qzgt=156) 0.92 ng/dL 0.70-1.48 TSH/FREE T4 IF [id number] 07:35:00* Test Item Value Reference Range Comments THYROID STIMULATING HORMONE (BEAKER) (test nisr=969) 8.07 uIU/mL 0.35-4.94 C-REACTIVE [id number] 07:11:00* Test Item Value Reference Range Comments C-REACTIVE PROTEIN (BEAKER) (test pvfa=049) 17.40 mg/dL 0.00-0.50 POCT-GLUCOSE [id number] 06:59:00* Test Item Value Reference Range Comments POC-GLUCOSE METER (BEAKER) (test pxwc=6815) 236 mg/dL 70-110 TESTED AT [address] [address] POCT-LACTIC ACID, [id number] 06:37:00* Test Item Value Reference Range Comments POC-LACTIC ACID, VENOUS (BEAKER) (test kdvi=4205) 0.7 mmol/L 0.9-1.7 TESTED AT [address] [address] [id number] 05:12:00* Test Item Value Reference Range Comments PROCALCITONIN (BEAKER) (test yosy=1114) 0.07 ng/mL <0.05 SEPSIS RISK (ng/mL)Low: 0.05-0.50Intermediate: 0.51-2.00High: > =2.01POCT-LACTIC ACID, [id number] 04:16:00* Test Item Value Reference Range Comments POC-LACTIC ACID, VENOUS (BEAKER) (test fzsd=4017) 0.8 mmol/L 0.9-1.7 TESTED AT [address] [address] POCT-GLUCOSE [id number] 04:14:00* Test Item Value Reference Range Comments POC-GLUCOSE METER (BEAKER) (test zdin=8279) 280 mg/dL 70-110 TESTED AT [address] [address] BASIC METABOLIC [id number] 01:38:00* Test Item Value Reference Range Comments SODIUM (BEAKER) (test pgdg=480) 135 meq/L 136-145 POTASSIUM (BEAKER) (test gxoz=052) 3.7 meq/L 3.5-5.1 CHLORIDE (BEAKER) (test jzln=527) 103 meq/L 98-107 CO2 (BEAKER) (test xyco=912) 22 meq/L 22-29 BLOOD UREA NITROGEN (BEAKER) (test wnlg=722) 12 mg/dL 7-21 CREATININE (BEAKER) (test mzxa=606) 0.82 mg/dL 0.57-1.25 GLUCOSE RANDOM (BEAKER) (test zvjq=598) 341 mg/dL 70-105 CALCIUM (BEAKER) (test swuc=256) 9.0 mg/dL 8.4-10.2 EGFR (BEAKER) (test ulbf=4131) 106 mL/min/1.73 sq m ESTIMATED GFR IS NOT ACCURATE CREATININE CLEARANCE IN PREDICTING GLOMERULAR FILTRATION RATE. ESTIMATED GFR IS NOT APPLICABLE FOR DIALYSIS PATIENTS. CBC W/PLT COUNT & AUTO [id number] 01:17:00* Test Item Value Reference Range Comments WHITE BLOOD CELL COUNT (BEAKER) (test zoqm=682) 13.8 K/ L 3.5-10.5 RED BLOOD CELL COUNT (BEAKER) (test pnaj=162) 3.85 M/ L 4.63-6.08 HEMOGLOBIN (BEAKER) (test ahlo=089) 10.3 GM/DL 13.7-17.5 HEMATOCRIT (BEAKER) (test stde=995) 33.0 % 40.1-51.0 MEAN CORPUSCULAR VOLUME (BEAKER) (test edms=958) 85.7 fL 79.0-92.2 MEAN CORPUSCULAR HEMOGLOBIN (BEAKER) (test hmbu=491) 26.8 pg 25.7-32.2 MEAN CORPUSCULAR HEMOGLOBIN CONC (BEAKER) (test kljp=286) 31.2 GM/DL 32.3-36.5 RED CELL DISTRIBUTION WIDTH (BEAKER) (test ravf=730) 15.8 % 11.6-14.4 PLATELET COUNT (BEAKER) (test jjuv=230) 379 K/CU MM 150-450 MEAN PLATELET VOLUME (BEAKER) (test zksc=855) 9.3 fL 9.4-12.4 NUCLEATED RED BLOOD CELLS (BEAKER) (test zcgm=441) 0 /100 WBC 0-0 NEUTROPHILS RELATIVE PERCENT (BEAKER) (test uccf=060) 56 % LYMPHOCYTES RELATIVE PERCENT (BEAKER) (test xtdk=864) 30 % MONOCYTES RELATIVE PERCENT (BEAKER) (test oulz=473) 10 % EOSINOPHILS RELATIVE PERCENT (BEAKER) (test cklj=440) 4 % BASOPHILS RELATIVE PERCENT (BEAKER) (test emsw=182) 0 % NEUTROPHILS ABSOLUTE COUNT (BEAKER) (test kwol=984) 7.74 K/ L 1.78-5.38 LYMPHOCYTES ABSOLUTE COUNT (BEAKER) (test uydt=080) 4.13 K/ L 1.32-3.57 MONOCYTES ABSOLUTE COUNT (BEAKER) (test xmfk=987) 1.31 K/ L 0.30-0.82 EOSINOPHILS ABSOLUTE COUNT (BEAKER) (test cjyj=358) 0.49 K/ L 0.04-0.54 BASOPHILS ABSOLUTE COUNT (BEAKER) (test afyb=943) 0.04 K/ L 0.01-0.08 IMMATURE GRANULOCYTES-RELATIVE PERCENT (BEAKER) (test ucwc=1013) 0 % 0-1 RAD, CHEST, 1 VIEW, NON [id number] 16:35:00Reason for exam:->check picc placementShould this be performed at the bedside?->YesFINAL REPORT EXAM: Frontal chest radiograph, 2 images HISTORY PROVIDED: Check PICC placement COMPARISON: 08/31/2018 at 1214 IMPRESSION:Interval placement of a right upper extremity PICC line with the tip projecting over the proximal SVC. There is blunting of the right costophrenic angle with right basilar opacities compatible with a small pleural effusion and atelectasis or consolidation the right lung base without significant change since the previous examination. The left lung is clear. No discernible pneumothorax. Cardiomediastinal contours are stable. No acute osseous abnormality. Signed: Crystal Rodriguez Verified Date/Time: 08/31/2018 16:35:17 Reading Location: [facility] Reading Room -GLUCOSE [id number] 12:42:00* Test Item Value Reference Range Comments POC-GLUCOSE METER (BEAKER) (test ufsw=5065) 101 mg/dL 70-110 TESTED AT [facility] [address] [facility] [address] RAD, CHEST, 1 VIEW, NON [id number] 12:30:00Reason for exam:->VASCULAR ACCESS PROBLEMShould this be performed at the bedside?->YesFINAL REPORT INDICATION: VASCULAR ACCESS PROBLEM COMPARISON:August 02, 2018 TECHNIQUE: Chest radiograph, single view, portable technique. FINDINGS / IMPRESSION: Previously demonstrated right PICC line is removed. There is a right subpulmonic pleural effusion, versus elevated right hemidiaphragm. No pulmonary edema, consolidation, or pneumothorax is demonstrated. Cardiac and mediastinal contours are normal. Osseous structures unremarkable. Signed: Miguelito Burton Verified Date/Time: 08/31/2018 12:30:28 Reading Location: [facility] Radiology Reading Room US CULTURE + [id number] 08:53:00* Test Item Value Reference Range Comments CULTURE (BEAKER) (test ermt=8914) No fungus isolated in 28 days FUNGUS SMEAR (BEAKER) (test ervf=2274) No fungi seen POCT-GLUCOSE [id number] 12:39:00* Test Item Value Reference Range Comments POC-GLUCOSE METER (BEAKER) (test elqt=9097) 94 mg/dL 70-110 TESTED AT [address] [address] CBC (HEMOGRAM ONLY)2018-08-15 11:41:00* Test Item Value Reference Range Comments WHITE BLOOD CELL COUNT (BEAKER) (test kazh=783) 11.1 K/ L 3.5-10.5 RED BLOOD CELL COUNT (BEAKER) (test lwrr=535) 3.24 M/ L 4.63-6.08 HEMOGLOBIN (BEAKER) (test erfk=173) 8.8 GM/DL 13.7-17.5 HEMATOCRIT (BEAKER) (test qmjr=089) 28.9 % 40.1-51.0 MEAN CORPUSCULAR VOLUME (BEAKER) (test mujz=736) 89.2 fL 79.0-92.2 MEAN CORPUSCULAR HEMOGLOBIN (BEAKER) (test yims=182) 27.2 pg 25.7-32.2 MEAN CORPUSCULAR HEMOGLOBIN CONC (BEAKER) (test cosd=064) 30.4 GM/DL 32.3-36.5 RED CELL DISTRIBUTION WIDTH (BEAKER) (test ielw=215) 15.6 % 11.6-14.4 PLATELET COUNT (BEAKER) (test gism=504) 657 K/CU MM 150-450 MEAN PLATELET VOLUME (BEAKER) (test lipm=577) 8.1 fL 9.4-12.4 NUCLEATED RED BLOOD CELLS (BEAKER) (test icxz=058) 0 /100 WBC 0-0 POCT-GLUCOSE [id number] 09:17:00* Test Item Value Reference Range Comments POC-GLUCOSE METER (BEAKER) (test idka=8623) 139 mg/dL 70-110 TESTED AT [address] [address] POCT-GLUCOSE [id number] 21:23:00* Test Item Value Reference Range Comments POC-GLUCOSE METER (BEAKER) (test zonn=9995) 144 mg/dL 70-110 TESTED AT [address] [address] POCT-GLUCOSE [id number] 17:35:00* Test Item Value Reference Range Comments POC-GLUCOSE METER (BEAKER) (test nqtk=9462) 254 mg/dL 70-110 TESTED AT [address] [address] POCT-GLUCOSE [id number] 11:41:00* Test Item Value Reference Range Comments POC-GLUCOSE METER (BEAKER) (test grku=7689) 190 mg/dL 70-110 TESTED AT [address] [address] POCT-GLUCOSE [id number] 07:43:00* Test Item Value Reference Range Comments POC-GLUCOSE METER (BEAKER) (test lwrg=0862) 228 mg/dL 70-110 TESTED AT [address] [address] POCT-GLUCOSE [id number] 21:02:00* Test Item Value Reference Range Comments POC-GLUCOSE METER (BEAKER) (test vhvr=1837) 182 mg/dL 70-110 TESTED AT [address] [address] POCT-GLUCOSE [id number] 17:20:00* Test Item Value Reference Range Comments POC-GLUCOSE METER (BEAKER) (test wygc=5534) 174 mg/dL 70-110 TESTED AT [address] [address] POCT-GLUCOSE [id number] 12:04:00* Test Item Value Reference Range Comments POC-GLUCOSE METER (BEAKER) (test jzmy=7001) 233 mg/dL 70-110 TESTED AT [address] [address] POCT-GLUCOSE [id number] 08:45:00* Test Item Value Reference Range Comments POC-GLUCOSE METER (BEAKER) (test vtaa=6987) 194 mg/dL 70-110 TESTED AT [address] [address] POCT-GLUCOSE [id number] 21:00:00* Test Item Value Reference Range Comments POC-GLUCOSE METER (BEAKER) (test jyoh=0905) 315 mg/dL 70-110 TESTED AT [address] [address] POCT-GLUCOSE [id number] 17:17:00* Test Item Value Reference Range Comments POC-GLUCOSE METER (BEAKER) (test zbdw=9704) 191 mg/dL 70-110 TESTED AT [place] [address] [facility] [address] POCT-GLUCOSE [id number] 11:56:00* Test Item Value Reference Range Comments POC-GLUCOSE METER (BEAKER) (test xthr=6280) 138 mg/dL 70-110 TESTED AT [facility] [address] [facility] [address] POCT-GLUCOSE [id number] 08:34:00* Test Item Value Reference Range Comments POC-GLUCOSE METER (BEAKER) (test gpyc=2631) 235 mg/dL 70-110 TESTED AT [address] [address] BASIC METABOLIC [id number] 05:10:00* Test Item Value Reference Range Comments SODIUM (BEAKER) (test ckle=200) 138 meq/L 136-145 POTASSIUM (BEAKER) (test beni=371) 4.2 meq/L 3.5-5.1 CHLORIDE (BEAKER) (test mrni=859) 103 meq/L 98-107 CO2 (BEAKER) (test wwid=903) 27 meq/L 22-29 BLOOD UREA NITROGEN (BEAKER) (test ghul=051) 17 mg/dL 7-21 CREATININE (BEAKER) (test lzxp=353) 0.75 mg/dL 0.57-1.25 GLUCOSE RANDOM (BEAKER) (test tkmy=098) 188 mg/dL 70-105 CALCIUM (BEAKER) (test ytgn=528) 9.1 mg/dL 8.4-10.2 EGFR (BEAKER) (test btxy=8036) 118 mL/min/1.73 sq m ESTIMATED GFR IS NOT ACCURATE CREATININE CLEARANCE IN PREDICTING GLOMERULAR FILTRATION RATE. ESTIMATED GFR IS NOT APPLICABLE FOR DIALYSIS PATIENTS. CBC (HEMOGRAM ONLY)2018-08-12 04:53:00* Test Item Value Reference Range Comments WHITE BLOOD CELL COUNT (BEAKER) (test dfpf=205) 14.1 K/ L 3.5-10.5 RED BLOOD CELL COUNT (BEAKER) (test wode=440) 3.39 M/ L 4.63-6.08 HEMOGLOBIN (BEAKER) (test ydop=079) 8.8 GM/DL 13.7-17.5 HEMATOCRIT (BEAKER) (test nqyj=185) 30.6 % 40.1-51.0 MEAN CORPUSCULAR VOLUME (BEAKER) (test trim=229) 90.3 fL 79.0-92.2 MEAN CORPUSCULAR HEMOGLOBIN (BEAKER) (test hzgm=523) 26.0 pg 25.7-32.2 MEAN CORPUSCULAR HEMOGLOBIN CONC (BEAKER) (test occv=004) 28.8 GM/DL 32.3-36.5 RED CELL DISTRIBUTION WIDTH (BEAKER) (test ytzf=491) 15.7 % 11.6-14.4 PLATELET COUNT (BEAKER) (test ayng=337) 848 K/CU MM 150-450 MEAN PLATELET VOLUME (BEAKER) (test jwli=152) 8.0 fL 9.4-12.4 NUCLEATED RED BLOOD CELLS (BEAKER) (test ymzv=782) 0 /100 WBC 0-0 POCT-GLUCOSE [id number] 20:53:00* Test Item Value Reference Range Comments POC-GLUCOSE METER (BEAKER) (test ipca=1555) 249 mg/dL 70-110 TESTED AT [address] [address] POCT-GLUCOSE [id number] 19:02:00* Test Item Value Reference Range Comments POC-GLUCOSE METER (BEAKER) (test rtrm=5907) 295 mg/dL 70-110 TESTED AT [address] [address] POCT-GLUCOSE [id number] 14:25:00* Test Item Value Reference Range Comments POC-GLUCOSE METER (BEAKER) (test smoa=4404) 192 mg/dL 70-110 TESTED AT [address] [address] POCT-GLUCOSE [id number] 14:25:00* Test Item Value Reference Range Comments POC-GLUCOSE METER (BEAKER) (test ponn=1537) 214 mg/dL 70-110 TESTED AT [address] [address] POCT-GLUCOSE [id number] 21:50:00* Test Item Value Reference Range Comments POC-GLUCOSE METER (BEAKER) (test etzi=9890) 188 mg/dL 70-110 TESTED AT [address] [address] POCT-GLUCOSE [id number] 18:25:00* Test Item Value Reference Range Comments POC-GLUCOSE METER (BEAKER) (test uesp=7704) 205 mg/dL 70-110 TESTED AT [address] [address] POCT-GLUCOSE [id number] 12:28:00* Test Item Value Reference Range Comments POC-GLUCOSE METER (BEAKER) (test ozou=4108) 259 mg/dL 70-110 TESTED AT [address] [address] POCT-GLUCOSE [id number] 07:50:00* Test Item Value Reference Range Comments POC-GLUCOSE METER (BEAKER) (test gegz=8224) 220 mg/dL 70-110 TESTED AT [address] [address] POCT-GLUCOSE [id number] 22:03:00* Test Item Value Reference Range Comments POC-GLUCOSE METER (BEAKER) (test sgnw=4787) 208 mg/dL 70-110 TESTED AT [address] [address] POCT-GLUCOSE [id number] 17:25:00* Test Item Value Reference Range Comments POC-GLUCOSE METER (BEAKER) (test jrni=8888) 124 mg/dL 70-110 TESTED AT [address] [address] POCT-GLUCOSE [id number] 11:52:00* Test Item Value Reference Range Comments POC-GLUCOSE METER (BEAKER) (test ywkt=4636) 143 mg/dL 70-110 TESTED AT [address] [address] POCT-GLUCOSE [id number] 07:52:00* Test Item Value Reference Range Comments POC-GLUCOSE METER (BEAKER) (test omhj=2734) 209 mg/dL 70-110 TESTED AT [address] [address] POCT-GLUCOSE [id number] 20:58:00* Test Item Value Reference Range Comments POC-GLUCOSE METER (BEAKER) (test mefd=2906) 183 mg/dL 70-110 TESTED AT [address] [address] POCT-GLUCOSE [id number] 17:25:00* Test Item Value Reference Range Comments POC-GLUCOSE METER (BEAKER) (test hdjj=4916) 173 mg/dL 70-110 TESTED AT [address] [address] POCT-GLUCOSE [id number] 12:29:00* Test Item Value Reference Range Comments POC-GLUCOSE METER (BEAKER) (test vluk=9804) 285 mg/dL 70-110 TESTED AT [facility] [address] [facility] [address] POCT-GLUCOSE [id number] 07:53:00* Test Item Value Reference Range Comments POC-GLUCOSE METER (BEAKER) (test ucgy=4295) 224 mg/dL 70-110 TESTED AT [facility] [address] [facility] [address] CBC W/PLT COUNT & AUTO [id number] 07:11:00* Test Item Value Reference Range Comments WHITE BLOOD CELL COUNT (BEAKER) (test toeh=690) 12.2 K/ L 3.5-10.5 RED BLOOD CELL COUNT (BEAKER) (test vgom=722) 2.91 M/ L 4.63-6.08 HEMOGLOBIN (BEAKER) (test ivln=892) 7.8 GM/DL 13.7-17.5 HEMATOCRIT (BEAKER) (test stxk=471) 26.8 % 40.1-51.0 MEAN CORPUSCULAR VOLUME (BEAKER) (test wfjp=393) 92.1 fL 79.0-92.2 MEAN CORPUSCULAR HEMOGLOBIN (BEAKER) (test oxaj=664) 26.8 pg 25.7-32.2 MEAN CORPUSCULAR HEMOGLOBIN CONC (BEAKER) (test pmvk=289) 29.1 GM/DL 32.3-36.5 RED CELL DISTRIBUTION WIDTH (BEAKER) (test rysv=199) 15.4 % 11.6-14.4 PLATELET COUNT (BEAKER) (test uubv=656) 700 K/CU MM 150-450 MEAN PLATELET VOLUME (BEAKER) (test dxyl=916) 9.1 fL 9.4-12.4 NUCLEATED RED BLOOD CELLS (BEAKER) (test eyss=485) 0 /100 WBC 0-0 NEUTROPHILS RELATIVE PERCENT (BEAKER) (test aixc=910) 56 % LYMPHOCYTES RELATIVE PERCENT (BEAKER) (test smbs=244) 34 % MONOCYTES RELATIVE PERCENT (BEAKER) (test iaqx=743) 7 % EOSINOPHILS RELATIVE PERCENT (BEAKER) (test kmsb=514) 3 % BASOPHILS RELATIVE PERCENT (BEAKER) (test xyfc=992) 0 % NEUTROPHILS ABSOLUTE COUNT (BEAKER) (test seof=547) 6.78 K/ L 1.78-5.38 LYMPHOCYTES ABSOLUTE COUNT (BEAKER) (test ebai=284) 4.09 K/ L 1.32-3.57 MONOCYTES ABSOLUTE COUNT (BEAKER) (test zmze=836) 0.79 K/ L 0.30-0.82 EOSINOPHILS ABSOLUTE COUNT (BEAKER) (test yruy=198) 0.36 K/ L 0.04-0.54 BASOPHILS ABSOLUTE COUNT (BEAKER) (test wtrn=983) 0.03 K/ L 0.01-0.08 IMMATURE GRANULOCYTES-RELATIVE PERCENT (BEAKER) (test uidk=4962) 1 % 0-1 [id number] 07:10:00* Test Item Value Reference Range Comments PREALBUMIN (BEAKER) (test pzcs=982) 13 mg/dL 14-45 [id number] 06:58:00* Test Item Value Reference Range Comments MAGNESIUM (BEAKER) (test kqxv=383) 2.0 mg/dL 1.6-2.6 BASIC METABOLIC [id number] 06:58:00* Test Item Value Reference Range Comments SODIUM (BEAKER) (test eloc=305) 137 meq/L 136-145 POTASSIUM (BEAKER) (test hore=454) 4.1 meq/L 3.5-5.1 CHLORIDE (BEAKER) (test wrna=157) 105 meq/L 98-107 CO2 (BEAKER) (test mtdu=132) 27 meq/L 22-29 BLOOD UREA NITROGEN (BEAKER) (test qstn=631) 16 mg/dL 7-21 CREATININE (BEAKER) (test zhuq=756) 0.70 mg/dL 0.57-1.25 GLUCOSE RANDOM (BEAKER) (test zwix=029) 162 mg/dL 70-105 CALCIUM (BEAKER) (test kbyp=060) 8.7 mg/dL 8.4-10.2 EGFR (BEAKER) (test upbu=6861) 128 mL/min/1.73 sq m ESTIMATED GFR IS NOT ACCURATE CREATININE CLEARANCE IN PREDICTING GLOMERULAR FILTRATION RATE. ESTIMATED GFR IS NOT APPLICABLE FOR DIALYSIS PATIENTS. [id number] 06:58:00* Test Item Value Reference Range Comments ALBUMIN (BEAKER) (test lqcp=8176) 2.6 g/dL 3.5-5.0 POCT-GLUCOSE [id number] 21:31:00* Test Item Value Reference Range Comments POC-GLUCOSE METER (BEAKER) (test bgwf=9627) 167 mg/dL 70-110 TESTED AT [place] [id number] [facility] [address] POCT-GLUCOSE [id number] 18:19:00* Test Item Value Reference Range Comments POC-GLUCOSE METER (BEAKER) (test sjha=6108) 210 mg/dL 70-110 TESTED AT [address] [address] POCT-GLUCOSE [id number] 12:24:00* Test Item Value Reference Range Comments POC-GLUCOSE METER (BEAKER) (test hoiz=0330) 124 mg/dL 70-110 TESTED AT [address] [address] POCT-GLUCOSE [id number] 08:23:00* Test Item Value Reference Range Comments POC-GLUCOSE METER (BEAKER) (test uyxn=5458) 179 mg/dL 70-110 TESTED AT [address] [address] [id number] 04:50:00* Test Item Value Reference Range Comments MAGNESIUM (BEAKER) (test unwm=054) 2.0 mg/dL 1.6-2.6 BASIC METABOLIC [id number] 04:50:00* Test Item Value Reference Range Comments SODIUM (BEAKER) (test wpbh=711) 134 meq/L 136-145 POTASSIUM (BEAKER) (test eyph=017) 3.9 meq/L 3.5-5.1 CHLORIDE (BEAKER) (test juhi=858) 104 meq/L 98-107 CO2 (BEAKER) (test nbaa=823) 22 meq/L 22-29 BLOOD UREA NITROGEN (BEAKER) (test sblh=156) 10 mg/dL 7-21 CREATININE (BEAKER) (test qtdj=297) 0.66 mg/dL 0.57-1.25 GLUCOSE RANDOM (BEAKER) (test exck=991) 230 mg/dL 70-105 CALCIUM (BEAKER) (test rsto=506) 8.0 mg/dL 8.4-10.2 EGFR (BEAKER) (test aqwd=9226) 137 mL/min/1.73 sq m ESTIMATED GFR IS NOT ACCURATE CREATININE CLEARANCE IN PREDICTING GLOMERULAR FILTRATION RATE. ESTIMATED GFR IS NOT APPLICABLE FOR DIALYSIS PATIENTS. CBC W/PLT COUNT & AUTO [id number] 04:38:00* Test Item Value Reference Range Comments WHITE BLOOD CELL COUNT (BEAKER) (test jkkn=202) 13.3 K/ L 3.5-10.5 RED BLOOD CELL COUNT (BEAKER) (test nsbu=139) 2.69 M/ L 4.63-6.08 HEMOGLOBIN (BEAKER) (test nzzi=899) 7.3 GM/DL 13.7-17.5 HEMATOCRIT (BEAKER) (test wamg=734) 24.9 % 40.1-51.0 MEAN CORPUSCULAR VOLUME (BEAKER) (test lehd=499) 92.6 fL 79.0-92.2 MEAN CORPUSCULAR HEMOGLOBIN (BEAKER) (test xuau=782) 27.1 pg 25.7-32.2 MEAN CORPUSCULAR HEMOGLOBIN CONC (BEAKER) (test vcxb=142) 29.3 GM/DL 32.3-36.5 RED CELL DISTRIBUTION WIDTH (BEAKER) (test zhju=258) 15.3 % 11.6-14.4 PLATELET COUNT (BEAKER) (test dskm=872) 735 K/CU MM 150-450 MEAN PLATELET VOLUME (BEAKER) (test msip=141) 8.1 fL 9.4-12.4 NUCLEATED RED BLOOD CELLS (BEAKER) (test ccsc=728) 0 /100 WBC 0-0 NEUTROPHILS RELATIVE PERCENT (BEAKER) (test sfpf=978) 57 % LYMPHOCYTES RELATIVE PERCENT (BEAKER) (test ckbb=197) 32 % MONOCYTES RELATIVE PERCENT (BEAKER) (test fhan=505) 8 % EOSINOPHILS RELATIVE PERCENT (BEAKER) (test tcor=135) 2 % BASOPHILS RELATIVE PERCENT (BEAKER) (test rpcg=288) 0 % NEUTROPHILS ABSOLUTE COUNT (BEAKER) (test bioh=755) 7.56 K/ L 1.78-5.38 LYMPHOCYTES ABSOLUTE COUNT (BEAKER) (test vxpc=529) 4.19 K/ L 1.32-3.57 MONOCYTES ABSOLUTE COUNT (BEAKER) (test htgu=460) 1.02 K/ L 0.30-0.82 EOSINOPHILS ABSOLUTE COUNT (BEAKER) (test ygeg=635) 0.28 K/ L 0.04-0.54 BASOPHILS ABSOLUTE COUNT (BEAKER) (test lsqc=357) 0.05 K/ L 0.01-0.08 IMMATURE GRANULOCYTES-RELATIVE PERCENT (BEAKER) (test aeza=9740) 2 % 0-1 ANAEROBIC [id number] 04:16:00* Test Item Value Reference Range Comments CULTURE (BEAKER) (test pbkz=3838) No anaerobes isolated VANCOMYCIN LEVEL, [id number] 03:30:00* Test Item Value Reference Range Comments VANCOMYCIN TROUGH (BEAKER) (test ljcv=128) 11.6 ug/mL 10.0-20.0 POCT-GLUCOSE [id number] 22:51:00* Test Item Value Reference Range Comments POC-GLUCOSE METER (BEAKER) (test sfcn=8178) 312 mg/dL 70-110 Notified VINAYAK ROJAS/TESTED AT [address] [address] POCT-GLUCOSE [id number] 17:22:00* Test Item Value Reference Range Comments POC-GLUCOSE METER (BEAKER) (test jvdk=8045) 112 mg/dL 70-110 TESTED AT [address] [address] POCT-GLUCOSE [id number] 12:43:00* Test Item Value Reference Range Comments POC-GLUCOSE METER (BEAKER) (test pcoc=2034) 113 mg/dL 70-110 TESTED AT [address] [address] POCT-GLUCOSE [id number] 08:20:00* Test Item Value Reference Range Comments POC-GLUCOSE METER (BEAKER) (test rfpa=7526) 122 mg/dL 70-110 TESTED AT [address] [address] BASIC METABOLIC [id number] 06:37:00* Test Item Value Reference Range Comments SODIUM (BEAKER) (test bzqc=628) 138 meq/L 136-145 POTASSIUM (BEAKER) (test aubj=881) 3.7 meq/L 3.5-5.1 CHLORIDE (BEAKER) (test ofax=842) 105 meq/L 98-107 CO2 (BEAKER) (test nkgb=672) 27 meq/L 22-29 BLOOD UREA NITROGEN (BEAKER) (test bmol=401) 7 mg/dL 7-21 CREATININE (BEAKER) (test voic=986) 0.51 mg/dL 0.57-1.25 GLUCOSE RANDOM (BEAKER) (test demf=858) 95 mg/dL 70-105 CALCIUM (BEAKER) (test jmdb=002) 7.9 mg/dL 8.4-10.2 EGFR (BEAKER) (test kiyc=8324) 184 mL/min/1.73 sq m ESTIMATED GFR IS NOT ACCURATE CREATININE CLEARANCE IN PREDICTING GLOMERULAR FILTRATION RATE. ESTIMATED GFR IS NOT APPLICABLE FOR DIALYSIS PATIENTS. [id number] 06:32:00* Test Item Value Reference Range Comments MAGNESIUM (BEAKER) (test lqxm=791) 1.9 mg/dL 1.6-2.6 CBC W/PLT COUNT & AUTO [id number] 06:03:00* Test Item Value Reference Range Comments WHITE BLOOD CELL COUNT (BEAKER) (test iicn=919) 15.4 K/ L 3.5-10.5 RED BLOOD CELL COUNT (BEAKER) (test inne=293) 2.68 M/ L 4.63-6.08 HEMOGLOBIN (BEAKER) (test raix=333) 7.1 GM/DL 13.7-17.5 HEMATOCRIT (BEAKER) (test dtpl=497) 24.3 % 40.1-51.0 MEAN CORPUSCULAR VOLUME (BEAKER) (test kime=610) 90.7 fL 79.0-92.2 MEAN CORPUSCULAR HEMOGLOBIN (BEAKER) (test gzeb=585) 26.5 pg 25.7-32.2 MEAN CORPUSCULAR HEMOGLOBIN CONC (BEAKER) (test kfqg=766) 29.2 GM/DL 32.3-36.5 RED CELL DISTRIBUTION WIDTH (BEAKER) (test wtjw=844) 14.8 % 11.6-14.4 PLATELET COUNT (BEAKER) (test oage=539) 738 K/CU MM 150-450 MEAN PLATELET VOLUME (BEAKER) (test kobk=119) 8.3 fL 9.4-12.4 NUCLEATED RED BLOOD CELLS (BEAKER) (test lfwv=402) 0 /100 WBC 0-0 NEUTROPHILS RELATIVE PERCENT (BEAKER) (test laov=941) 63 % LYMPHOCYTES RELATIVE PERCENT (BEAKER) (test hglt=363) 26 % MONOCYTES RELATIVE PERCENT (BEAKER) (test eksv=750) 8 % EOSINOPHILS RELATIVE PERCENT (BEAKER) (test ujtl=017) 2 % BASOPHILS RELATIVE PERCENT (BEAKER) (test skyg=374) 0 % NEUTROPHILS ABSOLUTE COUNT (BEAKER) (test otwc=486) 9.70 K/ L 1.78-5.38 LYMPHOCYTES ABSOLUTE COUNT (BEAKER) (test bvaz=510) 3.98 K/ L 1.32-3.57 MONOCYTES ABSOLUTE COUNT (BEAKER) (test llkg=943) 1.17 K/ L 0.30-0.82 EOSINOPHILS ABSOLUTE COUNT (BEAKER) (test ofvg=176) 0.26 K/ L 0.04-0.54 BASOPHILS ABSOLUTE COUNT (BEAKER) (test muuf=903) 0.05 K/ L 0.01-0.08 IMMATURE GRANULOCYTES-RELATIVE PERCENT (BEAKER) (test nwhk=5784) 2 % 0-1 POCT-GLUCOSE [id number] 02:08:00* Test Item Value Reference Range Comments POC-GLUCOSE METER (BEAKER) (test zggo=7720) 193 mg/dL 70-110 TESTED AT [place] [id number] POCT-GLUCOSE [id number] 23:26:00* Test Item Value Reference Range Comments POC-GLUCOSE METER (BEAKER) (test oaqw=0365) 450 mg/dL 70-110 Notified VINAYAK ROJAS/TESTED AT [place] [address] POCT-GLUCOSE [id number] 16:58:00* Test Item Value Reference Range Comments POC-GLUCOSE METER (BEAKER) (test dfph=2261) 258 mg/dL 70-110 TESTED AT [place] [address] POCT-GLUCOSE [id number] 15:07:00* Test Item Value Reference Range Comments POC-GLUCOSE METER (BEAKER) (test flvd=0164) 184 mg/dL 70-110 TESTED AT [address] [address] SURGICALLY OBTAINED CULTURE + GRAM [id number] 12:14:00* Test Item Value Reference Range Comments CULTURE (BEAKER) (test gbgu=4532) See comment GRAM STAIN RESULT (BEAKER) (test vmho=9576) 4+ WBCs GRAM STAIN RESULT (BEAKER) (test yxhs=60755) No organisms seen 1+ Skin floraPOCT-GLUCOSE [id number] 08:16:00* Test Item Value Reference Range Comments POC-GLUCOSE METER (BEAKER) (test puce=2366) 201 mg/dL 70-110 TESTED AT [facility] [address] [facility] [place] [place] [address] [id number] 05:37:00* Test Item Value Reference Range Comments MAGNESIUM (BEAKER) (test nkox=691) 2.0 mg/dL 1.6-2.6 BASIC METABOLIC [id number] 05:37:00* Test Item Value Reference Range Comments SODIUM (BEAKER) (test rpbi=478) 137 meq/L 136-145 POTASSIUM (BEAKER) (test rzpz=389) 4.3 meq/L 3.5-5.1 CHLORIDE (BEAKER) (test wowm=084) 102 meq/L 98-107 CO2 (BEAKER) (test ydvg=853) 28 meq/L 22-29 BLOOD UREA NITROGEN (BEAKER) (test lbre=131) 12 mg/dL 7-21 CREATININE (BEAKER) (test npat=393) 0.63 mg/dL 0.57-1.25 GLUCOSE RANDOM (BEAKER) (test dduj=942) 158 mg/dL 70-105 CALCIUM (BEAKER) (test moxl=233) 8.5 mg/dL 8.4-10.2 EGFR (BEAKER) (test bmwd=9892) 144 mL/min/1.73 sq m ESTIMATED GFR IS NOT ACCURATE CREATININE CLEARANCE IN PREDICTING GLOMERULAR FILTRATION RATE. ESTIMATED GFR IS NOT APPLICABLE FOR DIALYSIS PATIENTS. CBC W/PLT COUNT & AUTO [id number] 05:06:00* Test Item Value Reference Range Comments WHITE BLOOD CELL COUNT (BEAKER) (test kfhj=512) 16.6 K/ L 3.5-10.5 RED BLOOD CELL COUNT (BEAKER) (test kujs=888) 3.05 M/ L 4.63-6.08 HEMOGLOBIN (BEAKER) (test psxw=486) 8.0 GM/DL 13.7-17.5 HEMATOCRIT (BEAKER) (test xxtm=589) 27.6 % 40.1-51.0 MEAN CORPUSCULAR VOLUME (BEAKER) (test udrl=714) 90.5 fL 79.0-92.2 MEAN CORPUSCULAR HEMOGLOBIN (BEAKER) (test ktpa=116) 26.2 pg 25.7-32.2 MEAN CORPUSCULAR HEMOGLOBIN CONC (BEAKER) (test jlvg=980) 29.0 GM/DL 32.3-36.5 RED CELL DISTRIBUTION WIDTH (BEAKER) (test nend=061) 14.6 % 11.6-14.4 PLATELET COUNT (BEAKER) (test boko=773) 831 K/CU MM 150-450 MEAN PLATELET VOLUME (BEAKER) (test fsxm=813) 8.1 fL 9.4-12.4 NUCLEATED RED BLOOD CELLS (BEAKER) (test okca=430) 0 /100 WBC 0-0 NEUTROPHILS RELATIVE PERCENT (BEAKER) (test yovq=074) 61 % LYMPHOCYTES RELATIVE PERCENT (BEAKER) (test znba=794) 28 % MONOCYTES RELATIVE PERCENT (BEAKER) (test nxgc=692) 7 % EOSINOPHILS RELATIVE PERCENT (BEAKER) (test lwvq=074) 2 % BASOPHILS RELATIVE PERCENT (BEAKER) (test gtoy=187) 0 % NEUTROPHILS ABSOLUTE COUNT (BEAKER) (test iwdp=216) 10.04 K/ L 1.78-5.38 LYMPHOCYTES ABSOLUTE COUNT (BEAKER) (test swbd=940) 4.60 K/ L 1.32-3.57 MONOCYTES ABSOLUTE COUNT (BEAKER) (test djai=523) 1.14 K/ L 0.30-0.82 EOSINOPHILS ABSOLUTE COUNT (BEAKER) (test fpkk=795) 0.31 K/ L 0.04-0.54 BASOPHILS ABSOLUTE COUNT (BEAKER) (test cacf=965) 0.05 K/ L 0.01-0.08 IMMATURE GRANULOCYTES-RELATIVE PERCENT (BEAKER) (test prqc=3862) 3 % 0-1 POCT-GLUCOSE [id number] 20:56:00* Test Item Value Reference Range Comments POC-GLUCOSE METER (BEAKER) (test xvnp=8385) 324 mg/dL 70-110 TESTED AT [facility] [address] [facility] [address] POCT-GLUCOSE [id number] 17:32:00* Test Item Value Reference Range Comments POC-GLUCOSE METER (BEAKER) (test qdsu=9076) 129 mg/dL 70-110 TESTED AT [facility] [address] [facility] [address] BLOOD [id number] 13:20:00* Test Item Value Reference Range Comments CULTURE (BEAKER) (test htfw=9763) No growth in 5 days BLOOD [id number] 13:04:00* Test Item Value Reference Range Comments CULTURE (BEAKER) (test hsbo=4906) No growth in 5 days POCT-GLUCOSE [id number] 11:46:00* Test Item Value Reference Range Comments POC-GLUCOSE METER (BEAKER) (test jnzj=0416) 201 mg/dL 70-110 TESTED AT [facility] [address] [facility] [address] POCT-GLUCOSE [id number] 08:10:00* Test Item Value Reference Range Comments POC-GLUCOSE METER (BEAKER) (test bqlz=7050) 234 mg/dL 70-110 TESTED AT [facility] [address] [facility] [address] CBC W/PLT COUNT & AUTO [id number] 06:47:00* Test Item Value Reference Range Comments WHITE BLOOD CELL COUNT (BEAKER) (test rrrq=214) 12.0 K/ L 3.5-10.5 RED BLOOD CELL COUNT (BEAKER) (test jbrk=271) 2.85 M/ L 4.63-6.08 HEMOGLOBIN (BEAKER) (test axld=703) 7.7 GM/DL 13.7-17.5 HEMATOCRIT (BEAKER) (test fjtx=426) 26.2 % 40.1-51.0 MEAN CORPUSCULAR VOLUME (BEAKER) (test dhal=158) 91.9 fL 79.0-92.2 MEAN CORPUSCULAR HEMOGLOBIN (BEAKER) (test dbdf=298) 27.0 pg 25.7-32.2 MEAN CORPUSCULAR HEMOGLOBIN CONC (BEAKER) (test vnju=068) 29.4 GM/DL 32.3-36.5 RED CELL DISTRIBUTION WIDTH (BEAKER) (test llrd=613) 14.6 % 11.6-14.4 PLATELET COUNT (BEAKER) (test laps=800) 716 K/CU MM 150-450 MEAN PLATELET VOLUME (BEAKER) (test mbqj=794) 8.6 fL 9.4-12.4 NUCLEATED RED BLOOD CELLS (BEAKER) (test fsyp=956) 0 /100 WBC 0-0 NEUTROPHILS RELATIVE PERCENT (BEAKER) (test qqda=536) 54 % LYMPHOCYTES RELATIVE PERCENT (BEAKER) (test oros=269) 32 % MONOCYTES RELATIVE PERCENT (BEAKER) (test yrja=785) 9 % EOSINOPHILS RELATIVE PERCENT (BEAKER) (test vifv=663) 2 % BASOPHILS RELATIVE PERCENT (BEAKER) (test wbwh=871) 0 % NEUTROPHILS ABSOLUTE COUNT (BEAKER) (test enmo=707) 6.46 K/ L 1.78-5.38 LYMPHOCYTES ABSOLUTE COUNT (BEAKER) (test ipkx=975) 3.84 K/ L 1.32-3.57 MONOCYTES ABSOLUTE COUNT (BEAKER) (test elzy=004) 1.05 K/ L 0.30-0.82 EOSINOPHILS ABSOLUTE COUNT (BEAKER) (test rhco=126) 0.29 K/ L 0.04-0.54 BASOPHILS ABSOLUTE COUNT (BEAKER) (test odsa=159) 0.05 K/ L 0.01-0.08 IMMATURE GRANULOCYTES-RELATIVE PERCENT (BEAKER) (test elne=7541) 2 % 0-1 [id number] 06:42:00* Test Item Value Reference Range Comments MAGNESIUM (BEAKER) (test hjtn=676) 1.9 mg/dL 1.6-2.6 BASIC METABOLIC [id number] 06:42:00* Test Item Value Reference Range Comments SODIUM (BEAKER) (test cuhk=215) 137 meq/L 136-145 POTASSIUM (BEAKER) (test wrzm=318) 4.4 meq/L 3.5-5.1 CHLORIDE (BEAKER) (test xcxn=506) 104 meq/L 98-107 CO2 (BEAKER) (test gzzz=426) 27 meq/L 22-29 BLOOD UREA NITROGEN (BEAKER) (test olal=497) 11 mg/dL 7-21 CREATININE (BEAKER) (test iodb=713) 0.72 mg/dL 0.57-1.25 GLUCOSE RANDOM (BEAKER) (test vpnz=584) 290 mg/dL 70-105 CALCIUM (BEAKER) (test xrvm=440) 8.2 mg/dL 8.4-10.2 EGFR (BEAKER) (test zsey=1405) 124 mL/min/1.73 sq m ESTIMATED GFR IS NOT ACCURATE CREATININE CLEARANCE IN PREDICTING GLOMERULAR FILTRATION RATE. ESTIMATED GFR IS NOT APPLICABLE FOR DIALYSIS PATIENTS. POCT-GLUCOSE [id number] 21:59:00* Test Item Value Reference Range Comments POC-GLUCOSE METER (BEAKER) (test jrgy=4581) 325 mg/dL 70-110 TESTED AT [facility] [address] [facility] [address] POCT-GLUCOSE [id number] 17:49:00* Test Item Value Reference Range Comments POC-GLUCOSE METER (BEAKER) (test opwy=7362) 97 mg/dL 70-110 TESTED AT [address] [address] VANCOMYCIN LEVEL, [id number] 16:10:00* Test Item Value Reference Range Comments VANCOMYCIN TROUGH (BEAKER) (test vagq=144) 6.1 ug/mL 10.0-20.0 POCT-GLUCOSE [id number] 11:33:00* Test Item Value Reference Range Comments POC-GLUCOSE METER (BEAKER) (test boqz=6367) 165 mg/dL 70-110 TESTED AT [address] [address] CBC W/PLT COUNT & AUTO [id number] 10:17:00* Test Item Value Reference Range Comments WHITE BLOOD CELL COUNT (BEAKER) (test pbaj=231) 14.8 K/ L 3.5-10.5 RED BLOOD CELL COUNT (BEAKER) (test orlr=297) 2.84 M/ L 4.63-6.08 HEMOGLOBIN (BEAKER) (test jgyy=444) 7.5 GM/DL 13.7-17.5 HEMATOCRIT (BEAKER) (test lcmo=748) 25.2 % 40.1-51.0 MEAN CORPUSCULAR VOLUME (BEAKER) (test yqiv=460) 88.7 fL 79.0-92.2 MEAN CORPUSCULAR HEMOGLOBIN (BEAKER) (test ljjz=325) 26.4 pg 25.7-32.2 MEAN CORPUSCULAR HEMOGLOBIN CONC (BEAKER) (test lgmg=298) 29.8 GM/DL 32.3-36.5 RED CELL DISTRIBUTION WIDTH (BEAKER) (test dhlh=395) 14.1 % 11.6-14.4 PLATELET COUNT (BEAKER)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 COUNT & AUTO [id number] 00:26:00* Test Item Value Reference Range Comments WHITE BLOOD CELL COUNT (BEAKER) (test fmoq=498) 9.2 K/ L 3.5-10.5 RED BLOOD CELL COUNT (BEAKER) (test yhrh=878) 3.13 M/ L 4.63-6.08 HEMOGLOBIN (BEAKER) (test krtk=474) 8.3 GM/DL 13.7-17.5 HEMATOCRIT (BEAKER) (test hqng=139) 27.4 % 40.1-51.0 MEAN CORPUSCULAR VOLUME (BEAKER) (test kgkk=328) 87.5 fL 79.0-92.2 MEAN CORPUSCULAR HEMOGLOBIN (BEAKER) (test vsdb=588) 26.5 pg 25.7-32.2 MEAN CORPUSCULAR HEMOGLOBIN CONC (BEAKER) (test xgfy=835) 30.3 GM/DL 32.3-36.5 RED CELL DISTRIBUTION WIDTH (BEAKER) (test oxus=519) 13.8 % 11.6-14.4 PLATELET COUNT (BEAKER) (test rgmn=396) 637 K/CU MM 150-450 MEAN PLATELET VOLUME (BEAKER) (test vrsr=247) 8.8 fL 9.4-12.4 NUCLEATED RED BLOOD CELLS (BEAKER) (test hzqh=429) 0 /100 WBC 0-0 LACTIC ACID, VENOUS, WHOLE [id number] 00:07:00* Test Item Value Reference Range Comments LACTATE BLOOD VENOUS (2) (LENORE) (test ntrt=4797) 3.0 mmol/L 0.5-2.2 POCT-GLUCOSE [id number] 21:29:00* Test Item Value Reference Range Comments POC-GLUCOSE METER (LENORE) (test aekq=9737) 496 mg/dL 70-110 TESTED AT [facility] [address] [facility] [address] AFB Culture and [id number] 13:01:00Specimen/Source: Bone/left hipCollected: 01/02/2018 08:45 Status: Final Last Updated: 03/01/2018 13:01 PVI-Penjb-Peqpwgphpbev (Final) (Final) 01/04/18 No acid fast bacill seen on direct smear Culture Result (Final) (Final) 03/01/18 No growth of AFB at six (6) weeks AFB Culture and [id number] 13:01:00Specimen/Source: Hip/lft superficialCollected: 01/02/2018 08:30 Status: Final Last Updated: 03/01/2018 13:01 OAR-Zuvmc-Qdlgmcettaqo (Final) (Final) 01/04/18 No acid fast bacill seen on direct smear Culture Result (Final) (Final) 03/01/18 No growth of AFB at six (6) weeks AFB Culture and [id number] 13:00:00Specimen/Source: Bone/left footCollected: 01/02/2018 09:20 Status: Final Last Updated: 03/01/2018 13:00 AUM-Jrrom-Spijpnvgwjwh (Final) (Final) 01/04/18 No acid fast bacill seen on direct smear Culture Result (Final) (Final) 03/01/18 No growth of AFB at six (6) weeks AFB Culture and [id number] 13:00:00Specimen/Source: Hip/left deepCollected: 01/02/2018 08:45 Status: Final Last Updated: 03/01/2018 13:00 CBE-Xdoky-Elyfmezyxlhq (Final) (Final) 01/04/18 No acid fast bacill seen on direct smear Culture Result (Final) (Final) 03/01/18 No growth of AFB at six (6) weeks AFB Culture and [id number] 12:59:00Specimen/Source: Foot/LeftCollected: 01/02/2018 09:20 Status: Final Last Updated: 03/01/2018 12:59 QQL-Uiryt-Pjsmfuxskwmo (Final) (Final) 01/04/18 No acid fast bacill seen on direct smear Culture Result (Final) (Final) 03/01/18 No growth of AFB at six (6) weeks AFB Culture and [id number] 12:58:00 Specimen/Source: Wound/RT. ISCHIUMCollected: 01/04/2018 12:50 Status: Final Last Updated: 03/01/2018 12:58 QUP-Ervik-Kaarucygnktj (Final) (Final) 01/05/18 No acid fast bacill seen on direct smear Culture Result (Final) (Fi nal) 03/01/18 No growth of AFB at six (6) weeks Fungus Culture with Stain 2018-02-21 10:01:00Specimen/Source: Wound/RT. ISCHIUMCollected: 01/04/2018 12:50 Status: Final Last Updated: 02/21/2018 10:01 Fungal Smear Result (Final) (Final) No yeast or hyphae seen Culture Result (Final) (Final) 02/21/18 No fungus isolated at 6 weeks Fungus Culture with [id number] 11:00:00Specimen/Source: Hip/left deepCollected: 01/02/2018 08:45 Status: Final Last Updated: 02/14/2018 11:00 Fungal Smear Result (Final) (Final) 01/02/18 No yeast or hyphae seen Culture Result (Final) (Final) 02/14/18 No fungus isolated at 6 weeks Fungus Culture with [id number] 11:00:00 Specimen/Source: Bone/left hipCollected: 01/02/2018 08:45 Status: Final Las t Updated: 02/14/2018 11:00 Fungal Smear Result (Final) (Final) 01/02 No yeast or hyphae seen Culture Result (Final) (Final) 02/14/18 No fungu s isolated at 6 weeks Fungus Culture with [id number] 10:59:00 Specimen/Source: Foot/LeftCollected: 01/02/2018 09:20 Status: Final Last Up dated: 02/14/2018 10:59 Fungal Smear Result (Final) (Final) 01/02/18 No yeast or hyphae seen Culture Result (Final) (Final) 02/14/18 No fungus is olated at 6 weeks Fungus Culture with [id number] 10:59:00Specimen/Source: Hip/lft superficialCollected: 01/02/2018 08:30 Status: Final Last Updated: 02/14/2018 10:59 Fungal Smear Result (Final) (Final) 01/02/18 No yeast or hyphae seen Culture Result (Final) (Final) 02/14/18 No fungus isolated at 6 weeks Fungus Culture with [id number] 10:58:00 Specimen/Source: Bone/left footCollected: 01/02/2018 09:20 Status: Final La st Updated: 02/14/2018 10:58 Fungal Smear Result (Final) (Final) 12/19 02/04 No yeast or hyphae seen Culture Result (Final) (Final) 02/14/18 No jeffery us isolated at 6 weeks US Upper Ext Venous Duplex [id number] 12:50:17 Patient: JADE LANGE II am Date/Time01/24/2018 12:40 CDTReason for Examr/o thrombus;Pain (please specify)R eportLEFT UPPER EXTREMITY VENOUS DOPPLER:HISTORY: Upper left arm and shoulder pa in.Grayscale, color-flow and Doppler spectral waveform analysis of the venous sy stem of the left upper extremity was performed.FINDINGS:The left internal jugula r vein, subclavian vein and axillary vein are patent and compressible without ev idence of thrombus.The basilic and cephalic veins are patent and compressible wi thout thrombus.The visualized portions of the brachial veins are patent and comp ressible without thrombus. A left arm PICC is in place.The ulnar and radial vei ns are patent and compressible without evidence of thrombus.IMPRESSION:No eviden ce of upper extremity DVT.LOCATION: [facility]16 Final Dictated by: MD Corley Adam FDictated DT/TM: 01/24/2018 12:48 pmSigned by: MD Barney, Scotty FSnabil serina (Electronic Signature): 01/24/2018 12:50 pmPOC [id number] 08:01:17* Test Item Value Reference Range Comments Glucose POC (test code=Glucose POC) 154 mg/dL 70-115 If you consider your patient critically ill, the Nitish-Accu Check Infrom II meter should not be used for Glucose determination. Draw a venous Glucose and send to the main Lab for analysis. POC [id number] 19:43:16* Test Item Value Reference Range Comments Glucose POC (test code=Glucose POC) 237 mg/dL 70-115 If you consider your patient critically ill, the Nitish-Accu Check Infrom II meter should not be used for Glucose determination. Draw a venous Glucose and send to the main Lab for analysis. POC [id number] 16:14:13* Test Item Value Reference Range Comments Glucose POC (test code=Glucose POC) 146 mg/dL 70-115 Notify RN or MDIf you consider your patient critically ill, the Nitish-Accu Check Infrom II meter should not be used for Glucose determination. Draw a venous Glucose and send to the main Lab for analysis. POC [id number] 11:56:48* Test Item Value Reference Range Comments Glucose POC (test code=Glucose POC) 167 mg/dL 70-115 Notify RN or MDIf you consider your patient critically ill, the Nitish-Accu Check Infrom II meter should not be used for Glucose determination. Draw a venous Glucose and send to the main Lab for analysis. POC [id number] 07:34:44* Test Item Value Reference Range Comments Glucose POC (test code=Glucose POC) 186 mg/dL 70-115 Notify RN or MDIf you consider your patient critically ill, the Nitish-Accu Check Infrom II meter should not be used for Glucose determination. Draw a venous Glucose and send to the main Lab for analysis. POC [id number] 21:30:39* Test Item Value Reference Range Comments Glucose POC (test code=Glucose POC) 206 mg/dL 70-115 If you consider your patient critically ill, the Nitish-Accu Check Infrom II meter should not be used for Glucose determination. Draw a venous Glucose and send to the main Lab for analysis. POC [id number] 16:21:39* Test Item Value Reference Range Comments Glucose POC (test code=Glucose POC) 178 mg/dL 70-115 If you consider your patient critically ill, the Nitish-Accu Check Infrom II meter should not be used for Glucose determination. Draw a venous Glucose and send to the main Lab for analysis. POC [id number] 11:42:11* Test Item Value Reference Range Comments Glucose POC (test code=Glucose POC) 70 mg/dL 70-115 If you consider your patient critically ill, the Nitish-Accu Check Infrom II meter should not be used for Glucose determination. Draw a venous Glucose and send to the main Lab for analysis. POC Glucose, [id number] 20:25:00* Test Item Value Reference Range Comments POC Glucose (test code=POCGLUC) 140 mg/dL 70-115 If you consider your patient critically ill, the Nitish Accu-Chek InformII metershould not be used for Glucose determinations.Draw a venous Glucose and send to the Main Lab for Analysis. POC Glucose, [id number] 16:51:00* Test Item Value Reference Range Comments POC Glucose (test code=POCGLUC) 133 mg/dL 70-115 If you consider your patient critically ill, the Nitish Accu-Chek InformII metershould not be used for Glucose determinations.Draw a venous Glucose and send to the Main Lab for Analysis. POC Glucose, [id number] 11:56:00* Test Item Value Reference Range Comments POC Glucose (test code=POCGLUC) 180 mg/dL 70-115 If you consider your patient critically ill, the Nitish Accu-Chek InformII metershould not be used for Glucose determinations.Draw a venous Glucose and send to the Main Lab for Analysis. POC Glucose, [id number] 08:28:00* Test Item Value Reference Range Comments POC Glucose (test code=POCGLUC) 138 mg/dL 70-115 If you consider your patient critically ill, the Nitish Accu-Chek InformII metershould not be used for Glucose determinations.Draw a venous Glucose and send to the Main Lab for Analysis. POC Glucose, [id number] 20:29:00* Test Item Value Reference Range Comments POC Glucose (test code=POCGLUC) 259 mg/dL 70-115 If you consider your patient critically ill, the Nitish Accu-Chek InformII metershould not be used for Glucose determinations.Draw a venous Glucose and send to the Main Lab for Analysis. POC Glucose, [id number] 17:00:00* Test Item Value Reference Range Comments POC Glucose (test code=POCGLUC) 103 mg/dL 70-115 If you consider your patient critically ill, the Nitish Accu-Chek InformII metershould not be used for Glucose determinations.Draw a venous Glucose and send to the Main Lab for Analysis. POC Glucose, [id number] 19:50:00* Test Item Value Reference Range Comments POC Glucose (test code=POCGLUC) 225 mg/dL 70-115 Notify RN or MDIf you consider your patient critically ill, the Nitish Accu-Chek InformII metershould not be used for Glucose determinations.Draw a venous Glucose and send to the Main Lab for Analysis. POC Glucose, [id number] 16:12:00* Test Item Value Reference Range Comments POC Glucose (test code=POCGLUC) 267 mg/dL 70-115 If you consider your patient critically ill, the Nitish Accu-Chek InformII metershould not be used for Glucose determinations.Draw a venous Glucose and send to the Main Lab for Analysis. POC Glucose, [id number] 11:11:00* Test Item Value Reference Range Comments POC Glucose (test code=POCGLUC) 118 mg/dL 70-115 If you consider your patient critically ill, the Nitish Accu-Chek InformII metershould not be used for Glucose determinations.Draw a venous Glucose and send to the Main Lab for Analysis. POC Glucose, [id number] 07:39:00* Test Item Value Reference Range Comments POC Glucose (test code=POCGLUC) 157 mg/dL 70-115 If you consider your patient critically ill, the Nitish Accu-Chek InformII metershould not be used for Glucose determinations.Draw a venous Glucose and send to the Main Lab for Analysis. RBC, Crossmatch 01:56:00* Test Item Value Reference Range Comments Product 1 Code (test code=PRODCODE1) E4532 Unit 1 ID (test code=UNITID1) [id number] Unit 1 ABO (test code=UNITABO1) O Unit 1 Rh (test code=UNITRH1) POS Unit 1 Interp (test code=UNITINTERP1) Compatible Unit 1 Status (test code=UNITSTAT1) RE Product 2 Code (test code=PRODCODE2) E4533 Unit 2 ID (test code=UNITID2) [id number] Unit 2 ABO (test code=UNITABO2) O Unit 2 Rh (test code=UNITRH2) POS Unit 2 Interp (test code=UNITINTERP2) Compatible Unit 2 Status (test code=UNITSTAT2) RE POC Glucose, [id number] 20:15:00* Test Item Value Reference Range Comments POC Glucose (test code=POCGLUC) 166 mg/dL 70-115 If you consider your patient critically ill, the Nitish Accu-Chek InformII metershould not be used for Glucose determinations.Draw a venous Glucose and send to the Main Lab for Analysis. POC Glucose, [id number] 16:09:00* Test Item Value Reference Range Comments POC Glucose (test code=POCGLUC) 127 mg/dL 70-115 If you consider your patient critically ill, the Nitish Accu-Chek InformII metershould not be used for Glucose determinations.Draw a venous Glucose and send to the Main Lab for Analysis. POC Glucose, [id number] 12:48:00* Test Item Value Reference Range Comments POC Glucose (test code=POCGLUC) 151 mg/dL 70-115 If you consider your patient critically ill, the Nitish Accu-Chek InformII metershould not be used for Glucose determinations.Draw a venous Glucose and send to the Main Lab for Analysis. POC Glucose, [id number] 07:43:00* Test Item Value Reference Range Comments POC Glucose (test code=POCGLUC) 148 mg/dL 70-115 Notify RN or MDIf you consider your patient critically ill, the Nitish Accu-Chek InformII metershould not be used for Glucose determinations.Draw a venous Glucose and send to the Main Lab for Analysis. RBC, Crossmatch 06:00:00* Test Item Value Reference Range Comments Product 1 Code (test code=PRODCODE1) E4543 Unit 1 ID (test code=UNITID1) [id number] Unit 1 ABO (test code=UNITABO1) O Unit 1 Rh (test code=UNITRH1) POS Unit 1 Interp (test code=UNITINTERP1) Compatible Unit 1 Status (test code=UNITSTAT1) PT Product 2 Code (test code=PRODCODE2) E4544 Unit 2 ID (test code=UNITID2) [id number] Unit 2 ABO (test code=UNITABO2) O Unit 2 Rh (test code=UNITRH2) POS Unit 2 Interp (test code=UNITINTERP2) Compatible Unit 2 Status (test code=UNITSTAT2) PT POC Glucose, [id number] 20:44:00* Test Item Value Reference Range Comments POC Glucose (test code=POCGLUC) 261 mg/dL 70-115 If you consider your patient critically ill, the Nitish Accu-Chek InformII metershould not be used for Glucose determinations.Draw a venous Glucose and send to the Main Lab for Analysis. POC Glucose, [id number] 16:08:00* Test Item Value Reference Range Comments POC Glucose (test code=POCGLUC) 140 mg/dL 70-115 Notify RN or MDIf you consider your patient critically ill, the Nitish Accu-Chek InformII metershould not be used for Glucose determinations.Draw a venous Glucose and send to the Main Lab for Analysis. [id number] 12:03:00* Test Item Value Reference Range Comments Osmolality [Serum] (test code=CMOSMOS) 286 mOsm/Kg 270-295 POC Glucose, [id number] 11:29:00* Test Item Value Reference Range Comments POC Glucose (test code=POCGLUC) 190 mg/dL 70-115 Notify RN or MDIf you consider your patient critically ill, the Nitish Accu-Chek InformII metershould not be used for Glucose determinations.Draw a venous Glucose and send to the Main Lab for Analysis. CBC with [id number] 09:44:00* Test Item Value Reference Range Comments WBC (test code=WBC) 12.4 K/cumm 4.4-10.5 RBC (test code=RBC) 3.73 M/cumm 4.10-5.70 Hemoglobin (test code=HGB) 9.8 gm/dL 13.4-17.4 READ BACK LAB VALUESVERIFIED BY REPEAT TESTINGrechecked & called to mee,rn @ 9998, post txn/mdj Hematocrit (test code=HCT) 33.0 % 38.7-52.0 MCV (test code=MCV) 88.5 fL 80-100 MCH (test code=MCH) 26.1 pg 27.0-32.5 MCHC (test code=MCHC) 29.5 g/dL 32.0-37.5 RDW (test code=RDW) 16.6 % 11.5-14.5 Platelet Count (test code=PLTCT) 729 K/cumm 140-440 MPV (test code=MPV) 9.6 fL Diff Method (test code=DIFFM) Auto Neutrophil (test code=NEUT) 52.1 % 36-70 Lymphocyte (test code=LYMPH) 39.5 % 12-44 Monocyte (test code=MONO) 5.9 % 0-11 Eosinophil (test code=EOS) 2.1 % 0-7 Basophil (test code=BASO) 0.5 % 0-2 Neutro Abs (test code=ANEUT) 6.5 K/cumm 1.6-7.4 Lymph Abs (test code=ALYMPH) 4.9 K/cumm 0.5-4.6 Wasatch Abs (test code=AMONO) 0.7 K/cumm 0.0-1.2 Eos Abs (test code=AEOS) 0.26 K/cumm 0.00-0.74 Baso Abs (test code=ABASO) 0.1 K/cumm 0.00-0.21 Hypochromic (test code=HYPO) Slight [id number] 07:53:00* Test Item Value Reference Range Comments Phosphorus (test code=PO4) 5.0 mg/dL 2.70-4.50 Magnesium, [id number] 07:53:00* Test Item Value Reference Range Comments Magnesium (test code=MG) 2.1 mg/dL 1.7-2.5 Basic Metabolic [id number] 07:53:00* Test Item Value Reference Range Comments Sodium (test code=NA) 140 mmol/L 135-145 Potassium (test code=K) 4.6 mmol/L 3.5-5.1 Chloride (test code=CL) 99 mmol/L 98-105 Carbon Dioxide (test code=CO2) 29 mmol/L 22-29 Glucose (test code=GLU) 102 mg/dL 70-115 Blood Urea Nitrogen (test code=BUN) 10 mg/dL 6-20 Creatinine (test code=CREAT) 0.6 mg/dL 0.7-1.2 Calcium (test code=CA) 8.5 mg/dL 8.3-10.5 BUN/Creatinine Ratio (test code=BCRATIO) 16.7 Anion Gap (test code=AGAP) 12 mmol/L 7-16 Estimated GFR (test code=GFR) >60 mL/min/1.73m2 eGFR (estimated Glomerular Filtration Rate) is an estimated value,calculated from the patient's serum creatinine using the MDRD equation.It is NOT the patient's actual GFR. The eGFR provides a more clinicallyuseful measure of kidney disease than serum creatinine alone.This calculation takes sex and race into account, if the informationis provided. If the race is not provided, and the patient isAfrican-[place], multiply by 1.212. If sex is not provided, and thepatient is female, multiply by 0.742. Results for patients <18 years ofage have not been validated by the MDRD study and should be interpretedwith caution.eGFR Result Interpretation:eGFR > or=60 is in the Normal RangeeGFR < 60 may mean kidney diseaseeGFR < 15 may mean kidney failureRanges recommended by the National Kidney Foundat ion,http://nkdep.nih.gov POC Glucose, [id number] 07:01:00* Test Item Value Reference Range Comments POC Glucose (test code=POCGLUC) 109 mg/dL 70-115 Notify RN or MDIf you consider your patient critically ill, the Nitish Accu-Chek InformII metershould not be used for Glucose determinations.Draw a venous Glucose and send to the Main Lab for Analysis. POC Glucose, [id number] 20:23:00* Test Item Value Reference Range Comments POC Glucose (test code=POCGLUC) 234 mg/dL 70-115 Notify RN or MDIf you consider your patient critically ill, the Nitish Accu-Chek InformII metershould not be used for Glucose determinations.Draw a venous Glucose and send to the Main Lab for Analysis. POC Glucose, [id number] 16:47:00* Test Item Value Reference Range Comments POC Glucose (test code=POCGLUC) 154 mg/dL 70-115 If you consider your patient critically ill, the Nitish Accu-Chek InformII metershould not be used for Glucose determinations.Draw a venous Glucose and send to the Main Lab for Analysis. POC Glucose, [id number] 12:13:00* Test Item Value Reference Range Comments POC Glucose (test code=POCGLUC) 266 mg/dL 70-115 Notify RN or MDIf you consider your patient critically ill, the Nitish Accu-Chek InformII metershould not be used for Glucose determinations.Draw a venous Glucose and send to the Main Lab for Analysis. Comprehensive Metabolic [id number] 11:21:00* Test Item Value Reference Range Comments Sodium (test code=NA) 154 mmol/L 135-145 Potassium (test code=K) 3.1 mmol/L 3.5-5.1 Chloride (test code=CL) 112 mmol/L 98-105 Carbon Dioxide (test code=CO2) 21 mmol/L 22-29 Glucose (test code=GLU) 149 mg/dL 70-115 Blood Urea Nitrogen (test code=BUN) 11 mg/dL 6-20 Creatinine (test code=CREAT) 0.6 mg/dL 0.7-1.2 Calcium (test code=CA) 5.3 mg/dL 8.3-10.5 Prot Total (test code=TP) 4.7 g/dL 6.4-8.3 Albumin (test code=ALB) 1.8 g/dL 3.5-5.2 A/G Ratio (test code=AGRATIO) 0.6 Ratio Globulin (test code=GLOB) 2.9 2.9-3.1 Bili Total (test code=TBIL) 0.2 mg/dL 0.1-0.9 Alk Phos (test code=APHOS) 121 U/L 40-129 AST (test code=AST) 15 U/L 1-40 ALT (test code=ALT) 20 U/L 1-41 BUN/Creatinine Ratio (test code=BCRATIO) 18.3 Anion Gap (test code=AGAP) 21 mmol/L 7-16 Estimated GFR (test code=GFR) >60 mL/min/1.73m2 eGFR (estimated Glomerular Filtration Rate) is an estimated value,calculated from the patient's serum creatinine using the MDRD equation.It is NOT the patient's actual GFR. The eGFR provides a more clinicallyuseful measure of kidney disease than serum creatinine alone.This calculation takes sex and race into account, if the informationis provided. If the race is not provided, and the patient isAfrican-[place], multiply by 1.212. If sex is not provided, and thepatient is female, multiply by 0.742. Results for patients <18 years ofage have not been validated by the MDRD study and should be interpretedwith caution.eGFR Result Interpretation:eGFR > or=60 is in the Normal RangeeGFR < 60 may mean kidney diseaseeGFR < 15 may mean kidney failureRanges recommended by the National Kidney Foundat ion,http://nkdep.nih.gov POC Glucose, [id number] 08:23:00* Test Item Value Reference Range Comments POC Glucose (test code=POCGLUC) 161 mg/dL 70-115 Notify RN or MDIf you consider your patient critically ill, the Nitish Accu-Chek InformII metershould not be used for Glucose determinations.Draw a venous Glucose and send to the Main Lab for Analysis. CBC with [id number] 08:17:00* Test Item Value Reference Range Comments WBC (test code=WBC) 11.7 K/cumm 4.4-10.5 RBC (test code=RBC) 2.89 M/cumm 4.10-5.70 Hemoglobin (test code=HGB) 7.6 gm/dL 13.4-17.4 READ BACK LAB VALUESVERIFIED BY REPEAT TESTINGrechecked & called to vinayak caban @ 0835, no info given/ana Hematocrit (test code=HCT) 25.4 % 38.7-52.0 MCV (test code=MCV) 87.9 fL 80-100 MCH (test code=MCH) 26.4 pg 27.0-32.5 MCHC (test code=MCHC) 30.0 g/dL 32.0-37.5 RDW (test code=RDW) 16.6 % 11.5-14.5 Platelet Count (test code=PLTCT) 766 K/cumm 140-440 MPV (test code=MPV) 8.9 fL Diff Method (test code=DIFFM) Auto Neutrophil (test code=NEUT) 57.2 % 36-70 Lymphocyte (test code=LYMPH) 35.2 % 12-44 Monocyte (test code=MONO) 5.5 % 0-11 Eosinophil (test code=EOS) 1.7 % 0-7 Basophil (test code=BASO) 0.4 % 0-2 Neutro Abs (test code=ANEUT) 6.7 K/cumm 1.6-7.4 Lymph Abs (test code=ALYMPH) 4.1 K/cumm 0.5-4.6 Was[place] Abs (test code=AMONO) 0.7 K/cumm 0.0-1.2 Eos Abs (test code=AEOS) 0.20 K/cumm 0.00-0.74 Baso Abs (test code=ABASO) 0.0 K/cumm 0.00-0.21 Hypochromic (test code=HYPO) Slight POC Glucose, [id number] 23:42:00* Test Item Value Reference Range Comments POC Glucose (test code=POCGLUC) 331 mg/dL 70-115 Notify RN or MDIf you consider your patient critically ill, the Nitish Accu-Chek InformII metershould not be used for Glucose determinations.Draw a venous Glucose and send to the Main Lab for Analysis. POC Glucose, [id number] 16:22:00* Test Item Value Reference Range Comments POC Glucose (test code=POCGLUC) 201 mg/dL 70-115 If you consider your patient critically ill, the [employer] Accu-Chek InformII metershould not be used for Glucose determinations.Draw a venous Glucose and send to the Main Lab for Analysis. POC Glucose, [id number] 15:13:00* Test Item Value Reference Range Comments POC Glucose (test code=POCGLUC) 196 mg/dL 70-115 If you consider your patient critically ill, the [employer] Accu-Chek InformII metershould not be used for Glucose determinations.Draw a venous Glucose and send to the Main Lab for Analysis. Antibody Screen - [id number] 14:13:00* Test Item Value Reference Range Comments Antibody Screen (test code=ABSCR) Negative Blood Type and [id number] 13:06:00* Test Item Value Reference Range Comments ABO type (test code=ABO) O Rh Type (test code=RH) Positive POC Glucose, [id number] 20:35:00* Test Item Value Reference Range Comments POC Glucose (test code=POCGLUC) 198 mg/dL 70-115 If you consider your patient critically ill, the [employer] Accu-Chek InformII metershould not be used for Glucose determinations.Draw a venous Glucose and send to the Main Lab for Analysis. POC Glucose, [id number] 17:03:00* Test Item Value Reference Range Comments POC Glucose (test code=POCGLUC) 170 mg/dL 70-115 If you consider your patient critically ill, the [employer] Accu-Chek InformII metershould not be used for Glucose determinations.Draw a venous Glucose and send to the Main Lab for Analysis. POC Glucose, [id number] 11:36:00* Test Item Value Reference Range Comments POC Glucose (test code=POCGLUC) 269 mg/dL 70-115 If you consider your patient critically ill, the [employer] Accu-Chek InformII metershould not be used for Glucose determinations.Draw a venous Glucose and send to the Main Lab for Analysis. Comprehensive Metabolic [id number] 09:15:00* Test Item Value Reference Range Comments Sodium (test code=NA) 136 mmol/L 135-145 Potassium (test code=K) 4.7 mmol/L 3.5-5.1 Chloride (test code=CL) 95 mmol/L 98-105 Carbon Dioxide (test code=CO2) 26 mmol/L 22-29 Glucose (test code=GLU) 137 mg/dL 70-115 Blood Urea Nitrogen (test code=BUN) 16 mg/dL 6-20 Creatinine (test code=CREAT) 0.7 mg/dL 0.7-1.2 Calcium (test code=CA) 9.0 mg/dL 8.3-10.5 Prot Total (test code=TP) 8.2 g/dL 6.4-8.3 Albumin (test code=ALB) 3.3 g/dL 3.5-5.2 A/G Ratio (test code=AGRATIO) 0.7 Ratio Globulin (test code=GLOB) 4.9 2.9-3.1 Bili Total (test code=TBIL) 0.3 mg/dL 0.1-0.9 Alk Phos (test code=APHOS) 251 U/L 40-129 AST (test code=AST) 35 U/L 1-40 ALT (test code=ALT) 45 U/L 1-41 BUN/Creatinine Ratio (test code=BCRATIO) 22.9 Anion Gap (test code=AGAP) 15 mmol/L 7-16 Estimated GFR (test code=GFR) >60 mL/min/1.73m2 eGFR (estimated Glomerular Filtration Rate) is an estimated value,calculated from the patient's serum creatinine using the MDRD equation.It is NOT the patient's actual GFR. The eGFR provides a more clinicallyuseful measure of kidney disease than serum creatinine alone.This calculation takes sex and race into account, if the informationis provided. If the race is not provided, and the patient isAfrican-[place], multiply by 1.212. If sex is not provided, and thepatient is female, multiply by 0.742. Results for patients <18 years ofage have not been validated by the MDRD study and should be interpretedwith caution.eGFR Result Interpretation:eGFR > or=60 is in the Normal RangeeGFR < 60 may mean kidney diseaseeGFR < 15 may mean kidney failureRanges recommended by the National Kidney Foundat ion,http://nkdep.nih.gov POC Glucose, [id number] 07:57:00* Test Item Value Reference Range Comments POC Glucose (test code=POCGLUC) 140 mg/dL 70-115 If you consider your patient critically ill, the [employer] Accu-Chek InformII metershould not be used for Glucose determinations.Draw a venous Glucose and send to the Main Lab for Analysis. CBC with [id number] 07:51:00* Test Item Value Reference Range Comments WBC (test code=WBC) 14.3 K/cumm 4.4-10.5 RBC (test code=RBC) 3.80 M/cumm 4.10-5.70 Hemoglobin (test code=HGB) 10.2 gm/dL 13.4-17.4 Hematocrit (test code=HCT) 32.7 % 38.7-52.0 MCV (test code=MCV) 85.9 fL 80-100 MCH (test code=MCH) 26.7 pg 27.0-32.5 MCHC (test code=MCHC) 31.1 g/dL 32.0-37.5 RDW (test code=RDW) 16.3 % 11.5-14.5 Platelet Count (test code=PLTCT) 916 K/cumm 140-440 MPV (test code=MPV) 6.3 fL Diff Method (test code=DIFFM) Auto Neutrophil (test code=NEUT) 56.3 % 36-70 Lymphocyte (test code=LYMPH) 35.6 % 12-44 Monocyte (test code=MONO) 5.5 % 0-11 Eosinophil (test code=EOS) 2.4 % 0-7 Basophil (test code=BASO) 0.4 % 0-2 Neutro Abs (test code=ANEUT) 8.1 K/cumm 1.6-7.4 Lymph Abs (test code=ALYMPH) 5.1 K/cumm 0.5-4.6 [place] Abs (test code=AMONO) 0.8 K/cumm 0.0-1.2 Eos Abs (test code=AEOS) 0.34 K/cumm 0.00-0.74 Baso Abs (test code=ABASO) 0.1 K/cumm 0.00-0.21 Hypochromic (test code=HYPO) Slight POC Glucose, [id number] 20:52:00* Test Item Value Reference Range Comments POC Glucose (test code=POCGLUC) 225 mg/dL 70-115 If you consider your patient critically ill, the [employer] Accu-Chek InformII metershould not be used for Glucose determinations.Draw a venous Glucose and send to the Main Lab for Analysis. POC Glucose, [id number] 16:50:00* Test Item Value Reference Range Comments POC Glucose (test code=POCGLUC) 216 mg/dL 70-115 If you consider your patient critically ill, the [employer] Accu-Chek InformII metershould not be used for Glucose determinations.Draw a venous Glucose and send to the Main Lab for Analysis. POC Glucose, [id number] 12:46:00* Test Item Value Reference Range Comments POC Glucose (test code=POCGLUC) 145 mg/dL 70-115 If you consider your patient critically ill, the [employer] Accu-Chek InformII metershould not be used for Glucose determinations.Draw a venous Glucose and send to the Main Lab for Analysis. POC Glucose, [id number] 08:05:00* Test Item Value Reference Range Comments POC Glucose (test code=POCGLUC) 154 mg/dL 70-115 If you consider your patient critically ill, the [employer] Accu-Chek InformII metershould not be used for Glucose determinations.Draw a venous Glucose and send to the Main Lab for Analysis. POC Glucose, [id number] 19:52:00* Test Item Value Reference Range Comments POC Glucose (test code=POCGLUC) 254 mg/dL 70-115 Notify RN or MDIf you consider your patient critically ill, the [employer] Accu-Chek InformII metershould not be used for Glucose determinations.Draw a venous Glucose and send to the Main Lab for Analysis. POC Glucose, [id number] 17:27:00* Test Item Value Reference Range Comments POC Glucose (test code=POCGLUC) 208 mg/dL 70-115 If you consider your patient critically ill, the [employer] Accu-Chek InformII metershould not be used for Glucose determinations.Draw a venous Glucose and send to the Main Lab for Analysis. POC Glucose, [id number] 12:36:00* Test Item Value Reference Range Comments POC Glucose (test code=POCGLUC) 166 mg/dL 70-115 If you consider your patient critically ill, the [employer] Accu-Chek InformII metershould not be used for Glucose determinations.Draw a venous Glucose and send to the Main Lab for Analysis. Culture, Blood [id number] 09:10:00Specimen: BloodCollected: 01/02/2018 23:50 Status: Final Last Updated: 01/08/2018 09:10 Culture Result (Final) (Final) No Growth After 5 Days Culture, Blood [id number] 09:10:00Specimen: BloodCollected: 01/02/2018 23:50 Status: Final Last Updated: 01/08/2018 09:10 Culture Result (Final) (Final) No Growth After 5 Days POC Glucose, [id number] 08:13:00* Test Item Value Reference Range Comments POC Glucose (test code=POCGLUC) 173 mg/dL 70-115 If you consider your patient critically ill, the [employer] Accu-Chek InformII metershould not be used for Glucose determinations.Draw a venous Glucose and send to the Main Lab for Analysis. POC Glucose, [id number] 20:27:00* Test Item Value Reference Range Comments POC Glucose (test code=POCGLUC) 223 mg/dL 70-115 Notify RN or MDIf you consider your patient critically ill, the [employer] Accu-Chek InformII metershould not be used for Glucose determinations.Draw a venous Glucose and send to the Main Lab for Analysis. POC Glucose, [id number] 15:46:00* Test Item Value Reference Range Comments POC Glucose (test code=POCGLUC) 205 mg/dL 70-115 If you consider your patient critically ill, the [employer] Accu-Chek InformII metershould not be used for Glucose determinations.Draw a venous Glucose and send to the Main Lab for Analysis. Culture, Wound [id number] 13:42:00Specimen/Source: Wound/RT. ISCHIUMCollected: 01/04/2018 12:50 Status: Final Last Updated: 01/07/2018 13:41 Culture Result (Final) (Final) 01/05/18 Smear from broth Gram positive cocci in chains 01/06/18 Anaerobic culture:No anaerobes isolated at 3 days Isolate (Final) (Final) 01/06/18 From broth Group D Enterococcus Isolate Group D Enterococcus LAURA (mcg/ml) Ampicillin (AM) <=2 Susceptible Gentamicin Syn (HLG) >500 Resistant Linezolid (LNZ) 2 Susceptible Penicillin (P) 8 Susceptible Streptomycin Syn (HLS)>1000 Resistant Vancomycin (VA) 2 Susceptible Culture, Blood [id number] 13:34:00Specimen: BloodCollected: 12/31/2017 14:25 Status: Final Last Updated: 01/07/2018 13:34 (1) ER Bed 15 Culture Result (Final) (Final) 01/05/18 Evidence of growth Gram positive coccobacilli (anaerobicbottle) 01/05/18 Called to Erin Chappell at 2:42pm YA Read Back Lab Value 01/07/18 Anaerobic Diphtheroids Culture, Wound [id number] 11:54:00Specimen/Source: Bone/left footCollected: 01/02/2018 09:20 Status: Final Last Updated: 01/07/2018 11:54 Gram Stain (Final) (Final) 01/02/18 No organisms seen, Few WBC's Culture Result (Final) (Final) 01/03/18 Growth too young to evaluate at 24 hours-reincubated 01/04/18 Few Diphtheroids 01/06/18 Anaerobic culture:No anaerobes isolated at 3 days Isolate (Final) (Final) 01/04/18 Rare Klebsiella pneumoniae 01/05/18 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 <=16 Susceptible Ampicillin >16 Resistant Ampicillin/Sulb >16/8 Resistant Cefazolin >16 Resistant Cefepime >16 Resistant Cefotaxime >32 Resistant Ceftazidime 8 Resistant Ceftriaxone >32 Resistant Cefuroxime >16 Resistant Ciprofloxacin 2 Intermediate Gentamicin <=4 Susceptible Imipenem <=1 Susceptible Levofloxacin <=2 Susceptible Meropenem <=1 Susceptible Piperacillin/Tazo <=16 Susceptible Tobramycin <=4 Susceptible Trimethoprim/Sulfa >2/38 Resistant Isolate (Final) (Final) Rare Beta Hemolytic Streptococcus Streptococcus agalactiae Isolate (Final) (Final) 01/05/18 Rare Enterobacter cloacae Amikacin <=16 Susceptible Ampicillin >16 Resistant Ampicillin/Sulb >16/8 Resistant Cefazolin >16 Resistant Cefepime <=4 Susceptible Cefotaxime <=2 Susceptible Ceftazidime <=1 Susceptible Ceftriaxone <=1 Susceptible Cefuroxime >16 Resistant Ciprofloxacin <=1 Susceptible Gentamicin <=4 Susceptible Imipenem <=1 Susceptible Levofloxacin <=2 Susceptible Meropenem <=1 Susceptible Piperacillin/Tazo <=16 Susceptible Tobramycin <=4 Susceptible Trimethoprim/Sulfa >2/38 Resistant Culture, [id number] 09:41:00Specimen: UrineCollected: 01/05/2018 05:30 Status: Final Last Updated: 01/07/2018 09:41 Culture Result (Final) (Final) 01/06/18 <10,000 CFU/mL Yeast POC Glucose, [id number] 07:53:00* Test Item Value Reference Range Comments POC Glucose (test code=POCGLUC) 190 mg/dL 70-115 If you consider your patient critically ill, the [employer] Accu-Chek InformII metershould not be used for Glucose determinations.Draw a venous Glucose and send to the Main Lab for Analysis. POC Glucose, [id number] 20:37:00* Test Item Value Reference Range Comments POC Glucose (test code=POCGLUC) 213 mg/dL 70-115 Notify RN or MDIf you consider your patient critically ill, the [employer] Accu-Chek InformII metershould not be used for Glucose determinations.Draw a venous Glucose and send to the Main Lab for Analysis. POC Glucose, [id number] 17:19:00* Test Item Value Reference Range Comments POC Glucose (test code=POCGLUC) 144 mg/dL 70-115 If you consider your patient critically ill, the [employer] Accu-Chek InformII metershould not be used for Glucose determinations.Draw a venous Glucose and send to the Main Lab for Analysis. POC Glucose, [id number] 12:29:00* Test Item Value Reference Range Comments POC Glucose (test code=POCGLUC) 136 mg/dL 70-115 If you consider your patient critically ill, the [employer] Accu-Chek InformII metershould not be used for Glucose determinations.Draw a venous Glucose and send to the Main Lab for Analysis. POC Glucose, [id number] 08:30:00* Test Item Value Reference Range Comments POC Glucose (test code=POCGLUC) 174 mg/dL 70-115 If you consider your patient critically ill, the [employer] Accu-Chek InformII metershould not be used for Glucose determinations.Draw a venous Glucose and send to the Main Lab for Analysis. Culture, Wound [id number] 06:55:00Specimen/Source: Foot/LeftCollected: 01/02/2018 09:20 Status: Final Last Updated: 01/06/2018 06:55 Gram Stain (Final) (Final) 01/02/18 No organsims seen, No WBC's seen Culture Result (Final) (Final) 01/03/18 Growth too young to evaluate at 24 hours- reincubated 01/04/18 Moderate Diphtheroids 01/04/18 Moderate Alpha streptococcus (not Group D or Enterococcus) 01/06/18 Anaerobic culture:No anaerobes isolated at 3 days Isolate (Final) (Final) 01/04/18 Rare Pseudomonas aeruginosa Amikacin <=16 Susceptible Cefepime <=4 Susceptible Ceftazidime 4 Susceptible Ciprofloxacin <=1 Susceptible Gentamicin <=4 Susceptible Imipenem <=1 Susceptible Levofloxacin <=2 Susceptible Meropenem <=1 Susceptible Piperacillin/Tazo < =16 Susceptible Tobramycin <=4 Susceptible Isolate (Final) (Final) 01/04/18 Rare Enterobacter cloacae Amikacin <=16 Susceptible Ampicillin >16 Resistant Ampicillin/Sulb > 16/8 Resistant Cefazolin >16 Resistant Cefepime <=4 Susceptible Cefotaxime <=2 Susceptible Ceftazidime <=1 Susceptible Ceftriaxone <=1 Susceptible Cefuroxime 16 Resistant Ciprofloxacin < =1 Susceptible Gentamicin <=4 Susceptible Imipenem <=1 Susceptible Levofloxacin <=2 Susceptible Meropenem <=1 Susceptible Piperacillin/Tazo <=16 Susceptible Tobramycin <=4 Susceptible Trimethoprim/Sulfa >2/38 Resistant Culture, Wound [id number] 06:53:00Specimen: HipCollected: 01/01/2018 21:50 Status: Final Last Updated: 01/06/2018 06:53 Gram Stain (Final) (Final) 01/02/18 Many WBC'S , Few Gram Positive Cocci In Pairs , Few Diphtheroids Culture Result (Final) (Final) 01/04/18 Moderate Alpha streptococcus (not Group D or Enterococcus) 01/06/18 Anaerobic culture:No anaerobes isolated at 3 days Isolate (Final) (Final) 01/03/18 Few Beta Hemolytic Streptococcus Streptococcus agalactiae Culture, Wound [id number] 06:51:00Specimen/Source: Bone/left hipCollected: 01/02/2018 08:45 Status: Final Last Updated: 01/06/2018 06:51 Gram Stain (Final) (Final) 01/02/18 Rare WBC'S , Few Gram Positive Cocci In Pairs Culture Result (Final) (Final) 01/04/18 Moderate Alpha streptococcus (not Group D or Enterococcus) 01/06/18 Anaerobic culture:No anaerobes isolated at 3 days Isolate (Final) (Final) 01/03/18 Moderate Beta Hemolytic Streptococcus Streptococcus agalactiae Culture, Wound [id number] 06:47:00Specimen/Source: Hip/left deepCollected: 01/02/2018 08:45 Status: Final Last Updated: 01/06/2018 06:47 Gram Stain (Final) (Final) 01/02/18 Many WBC'S , Moderate Gram Positive Cocci In Pairs Culture Result (Final) (Final) 01/04/18 Moderate Alpha streptococcus (not Group D or Enterococcus) 01/06/18 Anaerobic culture:No anaerobes isolated at 3 days Isolate (Final) (Final) 01/03/18 Few Beta Hemolytic Streptococcus Streptococcus agalactiae Culture, Wound [id number] 06:47:00 Specimen/Source: Hip/lft superficialCollected: 01/02/2018 08:30 Status: Final Last Updated: 01/06/2018 06:47 Gram Stain (Final) (Final) 01/02/18 Few WBC'S , Rare Gram Positive Cocci In Pairs Culture Result (Final) (Final) 01/04/18 Moderate Alpha streptococcus (not Group D or Enterococcus) 8 Anaerobic culture:No anaerobes isolated at 3 days Isolate (Final) (Final) 01/03/18 Few Beta Hemolytic Streptococcus Streptococcus agalactiae CBC with [id number] 06:09:00* Test Item Value Reference Range Comments WBC (test code=WBC) 13.3 K/cumm 4.4-10.5 RBC (test code=RBC) 3.25 M/cumm 4.10-5.70 Hemoglobin (test code=HGB) 8.4 gm/dL 13.4-17.4 READ BACK LAB VALUESVERIFIED BY REPEAT TESTINGcalled to Lisandra Squires RN at 0605 01/06/2018. transfusion. DD Hematocrit (test code=HCT) 28.4 % 38.7-52.0 MCV (test code=MCV) 87.4 fL 80-100 MCH (test code=MCH) 25.9 pg 27.0-32.5 MCHC (test code=MCHC) 29.7 g/dL 32.0-37.5 RDW (test code=RDW) 15.9 % 11.5-14.5 Platelet Count (test code=PLTCT) 948 K/cumm 140-440 MPV (test code=MPV) 9.3 fL Diff Method (test code=DIFFM) Auto Neutrophil (test code=NEUT) 54.1 % 36-70 Lymphocyte (test code=LYMPH) 35.4 % 12-44 Monocyte (test code=MONO) 5.0 % 0-11 Eosinophil (test code=EOS) 5.1 % 0-7 Basophil (test code=BASO) 0.4 % 0-2 Neutro Abs (test code=ANEUT) 7.2 K/cumm 1.6-7.4 Lymph Abs (test code=ALYMPH) 4.7 K/cumm 0.5-4.6 [place] Abs (test code=AMONO) 0.7 K/cumm 0.0-1.2 Eos Abs (test code=AEOS) 0.67 K/cumm 0.00-0.74 Baso Abs (test code=ABASO) 0.1 K/cumm 0.00-0.21 Hypochromic (test code=HYPO) Slight [id number] 06:08:00* Test Item Value Reference Range Comments Phosphorus (test code=PO4) 4.7 mg/dL 2.70-4.50 Magnesium, [id number] 06:08:00* Test Item Value Reference Range Comments Magnesium (test code=MG) 2.3 mg/dL 1.7-2.5 Basic Metabolic [id number] 06:08:00* Test Item Value Reference Range Comments Sodium (test code=NA) 137 mmol/L 135-145 Potassium (test code=K) 4.7 mmol/L 3.5-5.1 Chloride (test code=CL) 99 mmol/L 98-105 Carbon Dioxide (test code=CO2) 28 mmol/L 22-29 Glucose (test code=GLU) 162 mg/dL 70-115 Blood Urea Nitrogen (test code=BUN) 12 mg/dL 6-20 Creatinine (test code=CREAT) 0.6 mg/dL 0.7-1.2 Calcium (test code=CA) 8.1 mg/dL 8.3-10.5 BUN/Creatinine Ratio (test code=BCRATIO) 20.0 Anion Gap (test code=AGAP) 10 mmol/L 7-16 Estimated GFR (test code=GFR) >60 mL/min/1.73m2 eGFR (estimated Glomerular Filtration Rate) is an estimated value,calculated from the patient's serum creatinine using the MDRD equation.It is NOT the patient's actual GFR. The eGFR provides a more clinicallyuseful measure of kidney disease than serum creatinine alone.This calculation takes sex and race into account, if the informationis provided. If the race is not provided, and the patient isAfrican-[place], multiply by 1.212. If sex is not provided, and thepatient is female, multiply by 0.742. Results for patients <18 years ofage have not been validated by the MDRD study and should be interpretedwith caution.eGFR Result Interpretation:eGFR > or=60 is in the Normal RangeeGFR < 60 may mean kidney diseaseeGFR < 15 may mean kidney failureRanges recommended by the National Kidney Foundat ion,http://nkdep.nih.gov POC Glucose, [id number] 21:59:00* Test Item Value Reference Range Comments POC Glucose (test code=POCGLUC) 292 mg/dL 70-115 If you consider your patient critically ill, the [employer] Accu-Chek InformII metershould not be used for Glucose determinations.Draw a venous Glucose and send to the Main Lab for Analysis. Culture, Blood [id number] 20:17:00Specimen: BloodCollected: 12/31/2017 14:25 Status: Final Last Updated: 01/05/2018 20:16 (1) ER Bed 15 Culture Result (Final) (Final) No Growth After 5 Days POC Glucose, Blood 2018-01-05 17:30:00* Test Item Value Reference Range Comments POC Glucose (test code=POCGLUC) 256 mg/dL 70-115 If you consider your patient critically ill, the [employer] Accu-Chek InformII metershould not be used for Glucose determinations.Draw a venous Glucose and send to the Main Lab for Analysis. Culture, Wound [id number] 13:37:00Specimen: WoundCollected: 12/31/2017 17:30 Status: Final Last Updated: 01/05/2018 13:37 (1) ER Bed 15 Gram Stain (Final) (Final) 01/01/18 Few WBC'S , Few Gram Positive Cocci In Pairs Culture Result (Final) (Final) 01/02/18 Many Streptococcus agalactiae(Group B) 01/03/18 Moderate Alpha streptococcus (not Group D or Enterococcus) 01/05/18 Few Peptostreptococcus 01/05/18 Moderate Anaerobic Gram variable coccobacilli 01/05/18 Multiple organisms present, no further workup in progress POC Glucose, [id number] 12:24:00* Test Item Value Reference Range Comments POC Glucose (test code=POCGLUC) 190 mg/dL 70-115 If you consider your patient critically ill, the [employer] Accu-Chek InformII metershould not be used for Glucose determinations.Draw a venous Glucose and send to the Main Lab for Analysis. POC Glucose, [id number] 08:14:00* Test Item Value Reference Range Comments POC Glucose (test code=POCGLUC) 145 mg/dL 70-115 If you consider your patient critically ill, the [employer] Accu-Chek InformII metershould not be used for Glucose determinations.Draw a venous Glucose and send to the Main Lab for Analysis. RBC, Crossmatch 06:00:00* Test Item Value Reference Range Comments Product 1 Code (test code=PRODCODE1) E4532 Unit 1 ID (test code=UNITID1) [id number] Unit 1 ABO (test code=UNITABO1) O Unit 1 Rh (test code=UNITRH1) POS Unit 1 Interp (test code=UNITINTERP1) Compatible Unit 1 Status (test code=UNITSTAT1) PT Product 2 Code (test code=PRODCODE2) E0336 Unit 2 ID (test code=UNITID2) [id number] Unit 2 ABO (test code=UNITABO2) O Unit 2 Rh (test code=UNITRH2) POS Unit 2 Interp (test code=UNITINTERP2) Compatible Unit 2 Status (test code=UNITSTAT2) PT POC Glucose, [id number] 19:38:00* Test Item Value Reference Range Comments POC Glucose (test code=POCGLUC) 241 mg/dL 70-115 If you consider your patient critically ill, the [employer] Accu-Chek InformII metershould not be used for Glucose determinations.Draw a venous Glucose and send to the Main Lab for Analysis. POC Glucose, [id number] 17:18:00* Test Item Value Reference Range Comments POC Glucose (test code=POCGLUC) 163 mg/dL 70-115 If you consider your patient critically ill, the [employer] Accu-Chek InformII metershould not be used for Glucose determinations.Draw a venous Glucose and send to the Main Lab for Analysis. CBC with [id number] 11:05:00* Test Item Value Reference Range Comments WBC (test code=WBC) 14.0 K/cumm 4.4-10.5 RBC (test code=RBC) 1.48 M/cumm 4.10-5.70 Hemoglobin (test code=HGB) 3.6 gm/dL 13.4-17.4 Hematocrit (test code=HCT) 12.9 % 38.7-52.0 MCV (test code=MCV) 87.0 fL 80-100 MCH (test code=MCH) 24.5 pg 27.0-32.5 MCHC (test code=MCHC) 28.2 g/dL 32.0-37.5 RDW (test code=RDW) 15.5 % 11.5-14.5 Platelet Count (test code=PLTCT) 1206 K/cumm 140-440 MPV (test code=MPV) 10.1 fL Diff Method (test code=DIFFM) Auto Neutrophil (test code=NEUT) 58.0 % 36-70 Lymphocyte (test code=LYMPH) 32.9 % 12-44 Monocyte (test code=MONO) 5.3 % 0-11 Eosinophil (test code=EOS) 3.5 % 0-7 Basophil (test code=BASO) 0.3 % 0-2 Neutro Abs (test code=ANEUT) 8.1 K/cumm 1.6-7.4 Lymph Abs (test code=ALYMPH) 4.6 K/cumm 0.5-4.6 [place] Abs (test code=AMONO) 0.7 K/cumm 0.0-1.2 Eos Abs (test code=AEOS) 0.48 K/cumm 0.00-0.74 Baso Abs (test code=ABASO) 0.0 K/cumm 0.00-0.21 RBC Morphology (test code=RBCMRPH) Slight Anisocytosis ; Moderate Hypochromia Hypochromic (test code=HYPO) Moderate Platelet Est (test code=PLTEST) Increased Platelet on Smear Culture, [id number] 10:25:00Specimen: Urine, CC-MidstreamCollected: 12/31/2017 15:25 Status: Final Last Updated: 01/04/2018 10:25 (1) ER Bed 15 Culture Result (Final) (Final) 01/02/18 40,000 CFU/mL Yeast Isolate (Final) (Final) 01/01/18 30,000 CFU/mL Klebsiella pneumoniae 01/03/18 Multi Drug Resistant Organism - Contact IsolationRecommended 01/03/18 Called to Reina Campoverde at 8:38am YA Read Back Lab Value +01/04/18 Colistin=14mm No interpretation (by disc diffusion method) Amikacin <=16 Susceptible Ampicillin >16 Resistant Ampicillin/Sulb >16/8 Resistant Cefazolin >16 Resistant Cefepime >16 Resistant Cefotaxime >32 Resistant Ceftazidime 16 Resistant Ceftriaxone >32 Resistant Cefuroxime >16 Resistant Ciprofloxacin >2 Resistant Gentamicin >8 Resistant Imipenem <=1 Susceptible Levofloxacin <=2 Susceptible Meropenem <=1 Susceptible Nitrofurantoin 64 Intermediate Piperacillin/Tazo <=16 Susceptible Tobramycin >8 Resistant Trimethoprim/Sulfa >2/38 Resistant Result added after release. Isolate (Final) (Final) 01/01/18 30,000 CFU/mL Klebsiella pneumoniae 01/03/18 Multi Drug Resistant Organism - Contact IsolationRecommended 01/03/18 Called to Reina Campoverde at 8:38am YA Read Back Lab Value Amikacin <=16 Susceptible Ampicillin > 16 Resistant Ampicillin/Sulb >16/8 Resistant Cefazolin >16 Resistant Cefepime >16 Resistant Cefotaxime >32 Resistant Ceftazidime 16 Resistant Ceftriaxone >32 Resistant Cefuroxime >16 Resistant Ciprofloxacin >2 Resistant Gentamicin >8 Resistant Imipenem <=1 Susceptible Levofloxacin < =2 Susceptible Meropenem <=1 Susceptible Nitrofurantoin 64 Intermediate Piperacillin/Tazo <=16 Susceptible Tobramycin >8 Resistant Trimethoprim/Sulfa > 2/38 Resistant Basic Metabolic [id number] 09:09:00* Test Item Value Reference Range Comments Sodium (test code=NA) 139 mmol/L 135-145 Potassium (test code=K) 4.5 mmol/L 3.5-5.1 Chloride (test code=CL) 98 mmol/L 98-105 Carbon Dioxide (test code=CO2) 30 mmol/L 22-29 Glucose (test code=GLU) 188 mg/dL 70-115 Blood Urea Nitrogen (test code=BUN) 8 mg/dL 6-20 Creatinine (test code=CREAT) 0.6 mg/dL 0.7-1.2 Calcium (test code=CA) 8.1 mg/dL 8.3-10.5 BUN/Creatinine Ratio (test code=BCRATIO) 13.3 Anion Gap (test code=AGAP) 11 mmol/L 7-16 Estimated GFR (test code=GFR) >60 mL/min/1.73m2 eGFR (estimated Glomerular Filtration Rate) is an estimated value,calculated from the patient's serum creatinine using the MDRD equation.It is NOT the patient's actual GFR. The eGFR provides a more clinicallyuseful measure of kidney disease than serum creatinine alone.This calculation takes sex and race into account, if the informationis provided. If the race is not provided, and the patient isAfrican-[place], multiply by 1.212. If sex is not provided, and thepatient is female, multiply by 0.742. Results for patients <18 years ofage have not been validated by the MDRD study and should be interpretedwith caution.eGFR Result Interpretation:eGFR > or=60 is in the Normal RangeeGFR < 60 may mean kidney diseaseeGFR < 15 may mean kidney failureRanges recommended by the National Kidney Foundat ion,http://nkdep.nih.gov POC Glucose, [id number] 07:47:00* Test Item Value Reference Range Comments POC Glucose (test code=POCGLUC) 205 mg/dL 70-115 Notify RN or MDIf you consider your patient critically ill, the Nitish Accu-Chek InformII metershould not be used for Glucose determinations.Draw a venous Glucose and send to the Main Lab for Analysis. [id number] 07:44:00* Test Item Value Reference Range Comments Hemoglobin (test code=HGB) 6.2 gm/dL 13.4-17.4 Prothrombin [id number] 06:48:00* Test Item Value Reference Range Comments PT (test code=PT) 15.20 seconds 9.78-13.35 INR (test code=INR) 1.35 Ratio 0.6-1.2 Partial Thromboplastin [id number] 06:48:00* Test Item Value Reference Range Comments aPTT (test code=PTT) 33.60 seconds 24.39-37.25 US DUPLX LWR EXT ART/BPG, [id number] 22:44:29LOCATION: [id number]: 37-year-old male with a left foot wound. Clinical concern isperipheral arterial vascular disease.COMMENT:Sonographic imaging of the arterial anatomy in both legs obtained.Grayscale, color-flow, and Doppler waveform imaging modalities utilized.Common femoral arteries, superficial femoral arteries, poplitealarteries, posterior tibial arteries, anterior tibial arteries, and inth e case of the right lower extremity the dorsalis pedis artery wereimaged. Left d orsalis pedis artery was obscured by a bandage.Triphasic wave form patterns with appropriate peak systolic flowvelocity is seen throughout the majority of the b oth lower extremitiesextending from the common femoral arteries distally to the anteriortibial arteries. In the right leg dorsalis pedis artery exhibits [place] monophasic waveform pattern. Systolic flow velocity was 59 cm/sat the site. Grayscale examination demonstrates no evidence of atheroscleroticchanges in the vascular anatomy.IMPRESSION:No suspicious arterial waveform abnormalities are se en in this patient'slower extremities in this arterial Doppler ultrasound study. There is adampened waveform pattern of monophasic waveform in the right dorsali spedis artery as outlined above.POC Glucose, [id number] 17:03:00* Test Item Value Reference Range Comments POC Glucose (test code=POCGLUC) 225 mg/dL 70-115 Notify RN or MDIf you consider your patient critically ill, the Nitish Accu-Chek InformII metershould not be used for Glucose determinations.Draw a venous Glucose and send to the Main Lab for Analysis. XR CHEST 1 [id number] 12:50:15CHEST 1 VIEWCLINICAL INFORMATION: FEVERCOMPARISON: January 01, 2018FINDINGS:Patchy opacities in the right lung base are stable to the comparisonstudy. There is a small right pleural effusion. The left lung isclear. The heart size is normal. A left arm PICC terminates in thesuperior vena cava.IMPRESSION:Small right pleural effusion with associated lower lobe consolidation.LOCATION: R16POC Glucose, [id number] 12:04:00* Test Item Value Reference Range Comments POC Glucose (test code=POCGLUC) 239 mg/dL 70-115 Notify RN or MDIf you consider your patient critically ill, the Nitish Accu-Chek InformII metershould not be used for Glucose determinations.Draw a venous Glucose and send to the Main Lab for Analysis. POC Glucose, [id number] 07:33:00* Test Item Value Reference Range Comments POC Glucose (test code=POCGLUC) 236 mg/dL 70-115 Notify RN or MDIf you consider your patient critically ill, the Nitish Accu-Chek InformII metershould not be used for Glucose determinations.Draw a venous Glucose and send to the Main Lab for Analysis. Basic Metabolic [id number] 06:59:00* Test Item Value Reference Range Comments Sodium (test code=NA) 136 mmol/L 135-145 Potassium (test code=K) 4.4 mmol/L 3.5-5.1 Chloride (test code=CL) 99 mmol/L 98-105 Carbon Dioxide (test code=CO2) 28 mmol/L 22-29 Glucose (test code=GLU) 192 mg/dL 70-115 Blood Urea Nitrogen (test code=BUN) 6 mg/dL 6-20 Creatinine (test code=CREAT) 0.5 mg/dL 0.7-1.2 Calcium (test code=CA) 7.4 mg/dL 8.3-10.5 BUN/Creatinine Ratio (test code=BCRATIO) 12.0 Anion Gap (test code=AGAP) 9 mmol/L 7-16 Estimated GFR (test code=GFR) >60 mL/min/1.73m2 eGFR (estimated Glomerular Filtration Rate) is an estimated value,calculated from the patient's serum creatinine using the MDRD equation.It is NOT the patient's actual GFR. The eGFR provides a more clinicallyuseful measure of kidney disease than serum creatinine alone.This calculation takes sex and race into account, if the informationis provided. If the race is not provided, and the patient isAfrican-[place], multiply by 1.212. If sex is not provided, and thepatient is female, multiply by 0.742. Results for patients <18 years ofage have not been validated by the MDRD study and should be interpretedwith caution.eGFR Result Interpretation:eGFR > or=60 is in the Normal RangeeGFR < 60 may mean kidney diseaseeGFR < 15 may mean kidney failureRanges recommended by the National Kidney Foundat ion,http://nkdep.nih.gov [id number] 06:58:00* Test Item Value Reference Range Comments Hemoglobin (test code=HGB) 7.2 gm/dL 13.4-17.4 RBC, Crossmatch 06:00:00* Test Item Value Reference Range Comments Product 1 Code (test code=PRODCODE1) E4532 Unit 1 ID (test code=UNITID1) [id number] Unit 1 ABO (test code=UNITABO1) O Unit 1 Rh (test code=UNITRH1) POS Unit 1 Interp (test code=UNITINTERP1) Compatible Unit 1 Status (test code=UNITSTAT1) PT Urinalysis [id number] 01:58:00* Test Item Value Reference Range Comments Color (test code=COLOR) Yellow Yellow,Straw,Pl yellow Clarity (test code=CLAR) Clear Clear Specific [place] (test code=SPGR) 1.013 1.001-1.035 pH (test code=PH) 7.0 5.0-9.0 Ketone (test code=KET) Negative mg/dL Negative Glucose (test code=GLUCUR) Negative mg/dL Negative Protein (test code=PROT) Negative mg/dL Negative Bilirubin (test code=BILI) Negative mg/dL Negative Occult Blood (test code=UDOB) Negative Negative Urobilinogen (test code=UROB) 0.2 mg/dL 0.2-1.0 Nitrite (test code=NIT) Negative Negative Leuk Esterase (test code=LEUK) Small Negative Micros Exam (test code=MEXAM) Indicated Epithelial Cells (test code=EPI) None Seen /LPF 0-30 WBC, Urine (test code=UWBC) 0-1 /HPF 0-5 RBC, Urine (test code=URBC) None Seen /HPF 0-5 Bacteria (test code=BACT) None /HPF Yeast (test code=YEAST) Few /HPF POC Glucose, [id number] 20:19:00* Test Item Value Reference Range Comments POC Glucose (test code=POCGLUC) 328 mg/dL 70-115 Notify RN or MDIf you consider your patient critically ill, the Nitish Accu-Chek InformII metershould not be used for Glucose determinations.Draw a venous Glucose and send to the Main Lab for Analysis. Vancomycin, [id number] 12:52:00* Test Item Value Reference Range Comments Vanco, Trou (test code=VANTR) 10.7 ug/mL 10.0-20.0 POC Glucose, [id number] 12:16:00* Test Item Value Reference Range Comments POC Glucose (test code=POCGLUC) 208 mg/dL 70-115 Notify RN or MDIf you consider your patient critically ill, the Nitish Accu-Chek InformII metershould not be used for Glucose determinations.Draw a venous Glucose and send to the Main Lab for Analysis. Vitamin [id number] 07:24:00* Test Item Value Reference Range Comments Vitamin B 12 (test code=VITB12) 727 pg/mL 211-946 Ferritin, [id number] 07:24:00* Test Item Value Reference Range Comments Ferritin (test code=FERR) 147 ng/mL 30-400 TIBC and [id number] 07:09:00* Test Item Value Reference Range Comments Iron (test code=FE) 28 ug/dL 59-158 UIBC (test code=UIBC) 162 ug/dL 112-346 TIBC (test code=TIBC) 190 ug/dL 171-504 % Saturation (test code=PSAT) 15 % 20-50 [id number] 07:07:00* Test Item Value Reference Range Comments Phosphorus (test code=PO4) 4.5 mg/dL 2.70-4.50 Magnesium, [id number] 07:07:00* Test Item Value Reference Range Comments Magnesium (test code=MG) 2.1 mg/dL 1.7-2.5 Basic Metabolic [id number] 07:07:00* Test Item Value Reference Range Comments Sodium (test code=NA) 137 mmol/L 135-145 Potassium (test code=K) 4.4 mmol/L 3.5-5.1 Chloride (test code=CL) 96 mmol/L 98-105 Carbon Dioxide (test code=CO2) 29 mmol/L 22-29 Glucose (test code=GLU) 197 mg/dL 70-115 Blood Urea Nitrogen (test code=BUN) 10 mg/dL 6-20 Creatinine (test code=CREAT) 0.6 mg/dL 0.7-1.2 Calcium (test code=CA) 8.1 mg/dL 8.3-10.5 BUN/Creatinine Ratio (test code=BCRATIO) 16.7 Anion Gap (test code=AGAP) 12 mmol/L 7-16 Estimated GFR (test code=GFR) >60 mL/min/1.73m2 eGFR (estimated Glomerular Filtration Rate) is an estimated value,calculated from the patient's serum creatinine using the MDRD equation.It is NOT the patient's actual GFR. The eGFR provides a more clinicallyuseful measure of kidney disease than serum creatinine alone.This calculation takes sex and race into account, if the informationis provided. If the race is not provided, and the patient is[place], multiply by 1.212. If sex is not provided, and thepatient is female, multiply by 0.742. Results for patients <18 years ofage have not been validated by the MDRD study and should be interpretedwith caution.eGFR Result Interpretation:eGFR > or=60 is in the Normal RangeeGFR < 60 may mean kidney diseaseeGFR < 15 may mean kidney failureRanges recommended by the National Kidney Foundat ion,http://nkdep.nih.gov CBC with [id number] 06:42:00* Test Item Value Reference Range Comments WBC (test code=WBC) 10.0 K/cumm 4.4-10.5 RBC (test code=RBC) 2.92 M/cumm 4.10-5.70 Hemoglobin (test code=HGB) 7.2 gm/dL 13.4-17.4 Hematocrit (test code=HCT) 25.2 % 38.7-52.0 MCV (test code=MCV) 86.4 fL 80-100 MCH (test code=MCH) 24.6 pg 27.0-32.5 MCHC (test code=MCHC) 28.5 g/dL 32.0-37.5 RDW (test code=RDW) 14.6 % 11.5-14.5 Platelet Count (test code=PLTCT) 953 K/cumm 140-440 MPV (test code=MPV) 9.7 fL Diff Method (test code=DIFFM) Auto Neutrophil (test code=NEUT) 51.7 % 36-70 Lymphocyte (test code=LYMPH) 38.6 % 12-44 Monocyte (test code=MONO) 7.1 % 0-11 Eosinophil (test code=EOS) 2.1 % 0-7 Basophil (test code=BASO) 0.5 % 0-2 Neutro Abs (test code=ANEUT) 5.2 K/cumm 1.6-7.4 Lymph Abs (test code=ALYMPH) 3.9 K/cumm 0.5-4.6 [place] Abs (test code=AMONO) 0.7 K/cumm 0.0-1.2 Eos Abs (test code=AEOS) 0.21 K/cumm 0.00-0.74 Baso Abs (test code=ABASO) 0.1 K/cumm 0.00-0.21 Hypochromic (test code=HYPO) Slight POC Glucose, [id number] 20:59:00* Test Item Value Reference Range Comments POC Glucose (test code=POCGLUC) 267 mg/dL 70-115 Notify RN or MDIf you consider your patient critically ill, the Nitish Accu-Chek InformII metershould not be used for Glucose determinations.Draw a venous Glucose and send to the Main Lab for Analysis. Antibody Screen - [id number] 18:56:00* Test Item Value Reference Range Comments Antibody Screen (test code=ABSCR) Negative Blood Type and [id number] 18:55:00* Test Item Value Reference Range Comments ABO type (test code=ABO) O Rh Type (test code=RH) Positive XR CHEST 1 [id number] 17:18:53LOCATION: [id number]: 37-year-old male, status post PICC line placement.COMMENT:A frontal chest radiograph was obtained at 4:43 p.m., and compared to astudy of December 31, 2017.The left arm PICC line tip is in the superior vena cava.Peripheral scarring seen laterally in the right lung base is unchanged.The chest otherwise is unremarkable.IMPRESSION:This patient's left arm PICC line tip is in the superior vena cava.POC Glucose, Blood 2018-01-01 16:03:00* Test Item Value Reference Range Comments POC Glucose (test code=POCGLUC) 238 mg/dL 70-115 If you consider your patient critically ill, the Nitish Accu-Chek InformII metershould not be used for Glucose determinations.Draw a venous Glucose and send to the Main Lab for Analysis. CT PELVIS LTD W/O [id number] 13:58:03LOCATION: [id number]: 37-year-old male presents with a left hip abscess.COMMENT:Axial CT imaging of this patient's pelvis was obtained from the iliaccrests to the pelvic floor without IV contrast. Coronal and sagittalsoft tissue reconstructions were included. Radiographs of the left hip obtained yesterday are available forcomparison.One or more of the following dose reduction techniques were used:Automated exposure control, adjustment of the mA and/or kV according thepatient size, and/or utilization of iterative reconstruction technique.DLP: 1017.9 mGy-cmCONTRAST: NoneFINDINGS:A large collection of gas is seen in the patient's left hip. The gascomes in close proximity to the greater trochanter proximal left femur.The images demonstrate findings suggestive of cortical discontinuityinvolving the greater trochanter raising concern for osteomyelitis inthis area.No fluid or gas is seen in the left hip joint space.No acute injury is seen elsewhere in the bony pelvis. Findings ofprobable myositis of significance is seen along the inferior aspect ofthe right hemipelvis with a collection of gas seen nearby the inferiorpubic ramus. No destructive lesion is seen specific to the inferiorpubic ramus clinical correlation is suggested regarding possibility ofosteomyelitis i n this location as well.The pelvic viscera exhibits no acute findings. Ostomy is seen in theleft lower quadrant. Urinary bladder is decompressed by Sexton cathet er.Correlation with a MRI examination of the pelvis is suggested.IMPRESSION:In t he patient's left hip there is a cortical discontinuity seeninvolving the greate r trochanter of the proximal femur is concern forosteomyelitis. Gas is seen in t he soft tissues, in close proximity tothis area.A sacral decubitus ulceration is seen in the medial aspect of the rightbuttock coming in proximity to the right inferior pubic ramus. 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 Osteoarthritis is not excluded in this area. Cecy muhammad comments for follow-up imaging suggestions.POC Glucose, Blood 2018-01-01 11:45:00* Test Item Value Reference Range Comments POC Glucose (test code=POCGLUC) 349 mg/dL 70-115 Notify RN or MDIf you consider your patient critically ill, the Nitish Accu-Chek InformII metershould not be used for Glucose determinations.Draw a venous Glucose and send to the Main Lab for Analysis. Glycosylated [id number] 08:17:00* Test Item Value Reference Range Comments HBA1c (test code=HBA1C) 11.2 % 4.8-5.9 POC Glucose, [id number] 07:54:00* Test Item Value Reference Range Comments POC Glucose (test code=POCGLUC) 326 mg/dL 70-115 Notify RN or MDIf you consider your patient critically ill, the Nitish Accu-Chek InformII metershould not be used for Glucose determinations.Draw a venous Glucose and send to the Main Lab for Analysis. CBC with [id number] 07:28:00* Test Item Value Reference Range Comments WBC (test code=WBC) 10.6 K/cumm 4.4-10.5 RBC (test code=RBC) 2.72 M/cumm 4.10-5.70 Hemoglobin (test code=HGB) 6.8 gm/dL 13.4-17.4 Hematocrit (test code=HCT) 23.4 % 38.7-52.0 MCV (test code=MCV) 86.1 fL 80-100 MCH (test code=MCH) 25.1 pg 27.0-32.5 MCHC (test code=MCHC) 29.1 g/dL 32.0-37.5 RDW (test code=RDW) 14.6 % 11.5-14.5 Platelet Count (test code=PLTCT) 1089 K/cumm 140-440 MPV (test code=MPV) 9.8 fL Diff Method (test code=DIFFM) Manual Neutrophil (test code=NEUT) 44.0 % 36-70 Bands (test code=BAND) 7.0 % 0-6 Lymphocyte (test code=LYMPH) 38.0 % 12-44 Monocyte (test code=MONO) 7.0 % 0-11 Eosinophil (test code=EOS) 2.0 % 0-7 Basophil (test code=BASO) 2.0 % 0-2 Neutro Abs (test code=ANEUT) 5.4 K/cumm 1.6-7.4 Lymph Abs (test code=ALYMPH) 4.0 K/cumm 0.5-4.6 [place] Abs (test code=AMONO) 0.7 K/cumm 0.0-1.2 Eos Abs (test code=AEOS) 0.21 K/cumm 0.00-0.74 Baso Abs (test code=ABASO) 0.2 K/cumm 0.00-0.21 RBC Morphology (test code=RBCMRPH) Moderate Hypochromia Platelet Est (test code=PLTEST) Increased Platelet on Smear Thyroid Stimulating Hormone (TSH)2018-01-01 06:26:00* Test Item Value Reference Range Comments TSH (test code=TSH) 5.31 mIU/mL 0.270-4.200 Lipid [id number] 06:21:00* Test Item Value Reference Range Comments Cholesterol (test code=CHOL) 103 mg/dL 0-200 Triglycerides (test code=TRIG) 199 mg/dL 9-200 HDL (test code=HDL) 14 mg/dL 40-60 Chol/HDL (test code=CHOLPHDL) 7.4 Ratio 0.0-5.0 LDL, Calculated (test code=LDLC) 49 0-130 (NOTE)RISK OF HEART DISEASEPublished by [place] Heart AssociationAnalyte Optimal Boderline Increased RiskCHOL <200 200-239 >240TRIG <150 150- 199 >200HDL Male: >60 <40HDL Female: >60 <50LDL <100 130-159 >160LDL NEAR OPTIMAL IS 100-129 VLDL (test code=VLDL) 40 mg/dL 5-40 LDL/HDL (test code=LDLPHDL) 4 [id number] 06:21:00* Test Item Value Reference Range Comments Phosphorus (test code=PO4) 4.0 mg/dL 2.70-4.50 Magnesium, [id number] 06:21:00* Test Item Value Reference Range Comments Magnesium (test code=MG) 2.0 mg/dL 1.7-2.5 Basic Metabolic [id number] 06:21:00* Test Item Value Reference Range Comments Sodium (test code=NA) 136 mmol/L 135-145 Potassium (test code=K) 4.4 mmol/L 3.5-5.1 Chloride (test code=CL) 99 mmol/L 98-105 Carbon Dioxide (test code=CO2) 25 mmol/L 22-29 Glucose (test code=GLU) 277 mg/dL 70-115 Blood Urea Nitrogen (test code=BUN) 8 mg/dL 6-20 Creatinine (test code=CREAT) 0.6 mg/dL 0.7-1.2 Calcium (test code=CA) 7.8 mg/dL 8.3-10.5 BUN/Creatinine Ratio (test code=BCRATIO) 13.3 Anion Gap (test code=AGAP) 12 mmol/L 7-16 Estimated GFR (test code=GFR) >60 mL/min/1.73m2 eGFR (estimated Glomerular Filtration Rate) is an estimated value,calculated from the patient's serum creatinine using the MDRD equation.It is NOT the patient's actual GFR. The eGFR provides a more clinicallyuseful measure of kidney disease than serum creatinine alone.This calculation takes sex and race into account, if the informationis provided. If the race is not provided, and the patient isAfrican-[place], multiply by 1.212. If sex is not provided, and thepatient is female, multiply by 0.742. Results for patients <18 years ofage have not been validated by the MDRD study and should be interpretedwith caution.eGFR Result Interpretation:eGFR > or=60 is in the Normal RangeeGFR < 60 may mean kidney diseaseeGFR < 15 may mean kidney failureRanges recommended by the National Kidney Foundat ion,http://nkdep.nih.gov Lactic Acid [id number] 06:16:00* Test Item Value Reference Range Comments Lactic Acid, Bld (test code=LAC) 0.9 mmol/L 0.5-1.9 Prothrombin [id number] 06:10:00* Test Item Value Reference Range Comments PT (test code=PT) 15.20 seconds 9.78-13.35 INR (test code=INR) 1.34 Ratio 0.6-1.2 Partial Thromboplastin [id number] 06:10:00* Test Item Value Reference Range Comments aPTT (test code=PTT) 32.20 seconds 24.39-37.25 POC Glucose, [id number] 20:27:00* Test Item Value Reference Range Comments POC Glucose (test code=POCGLUC) 329 mg/dL 70-115 If you consider your patient critically ill, the Nitish Accu-Chek InformII metershould not be used for Glucose determinations.Draw a venous Glucose and send to the Main Lab for Analysis. Urinalysis [id number] 16:06:00* Test Item Value Reference Range Comments Color (test code=COLOR) Yellow Yellow,Straw,Pl yellow Clarity (test code=CLAR) Clear Clear Specific [place] (test code=SPGR) 1.028 1.001-1.035 pH (test code=PH) 7.0 5.0-9.0 Ketone (test code=KET) 5 mg/dL Negative Glucose (test code=GLUCUR) 1000 mg/dL Negative Protein (test code=PROT) 75 mg/dL Negative Bilirubin (test code=BILI) See IctoTest mg/dL Negative Occult Blood (test code=UDOB) Small Negative Urobilinogen (test code=UROB) 8.0 mg/dL 0.2-1.0 Nitrite (test code=NIT) Positive Negative Leuk Esterase (test code=LEUK) Small Negative Ictotest (test code=ICTOTEST) Confirmed Negative Negative,Confirmed Negative Micros Exam (test code=MEXAM) Indicated Epithelial Cells (test code=EPI) 3-5 /LPF 0-30 WBC, Urine (test code=UWBC) 10-14 /HPF 0-5 RBC, Urine (test code=URBC) 0-2 /HPF 0-5 Bacteria (test code=BACT) Many /HPF Yeast (test code=YEAST) Few /HPF budding yeast presentFS CBC with [id number] 15:56:00* Test Item Value Reference Range Comments WBC (test code=WBC) 12.4 K/cumm 4.4-10.5 RBC (test code=RBC) 3.22 M/cumm 4.10-5.70 Hemoglobin (test code=HGB) 8.2 gm/dL 13.4-17.4 Hematocrit (test code=HCT) 27.0 % 38.7-52.0 MCV (test code=MCV) 83.7 fL 80-100 MCH (test code=MCH) 25.5 pg 27.0-32.5 MCHC (test code=MCHC) 30.5 g/dL 32.0-37.5 RDW (test code=RDW) 14.6 % 11.5-14.5 Platelet Count (test code=PLTCT) 1012 K/cumm 140-440 MPV (test code=MPV) 7.0 fL Diff Method (test code=DIFFM) Manual Neutrophil (test code=NEUT) 41.0 % 36-70 Bands (test code=BAND) 12.0 % 0-6 Lymphocyte (test code=LYMPH) 30.0 % 12-44 Monocyte (test code=MONO) 16.0 % 0-11 Eosinophil (test code=EOS) 1.0 % 0-7 Neutro Abs (test code=ANEUT) 6.6 K/cumm 1.6-7.4 Lymph Abs (test code=ALYMPH) 3.7 K/cumm 0.5-4.6 [place] Abs (test code=AMONO) 2.0 K/cumm 0.0-1.2 Eos Abs (test code=AEOS) 0.12 K/cumm 0.00-0.74 RBC Morphology (test code=RBCMRPH) Slight Anisocytosis ; Slight Polychromasia Platelet Est (test code=PLTEST) Increased Platelet on Smear Lactic Acid [id number] 15:12:00* Test Item Value Reference Range Comments Lactic Acid, Bld (test code=LAC) 2.6 mmol/L 0.5-1.9 Comprehensive Metabolic [id number] 15:08:00* Test Item Value Reference Range Comments Sodium (test code=NA) 135 mmol/L 135-145 Potassium (test code=K) 5.0 mmol/L 3.5-5.1 SLIGHT HEMOLYSIS Chloride (test code=CL) 96 mmol/L 98-105 Carbon Dioxide (test code=CO2) 24 mmol/L 22-29 Glucose (test code=GLU) 279 mg/dL 70-115 Blood Urea Nitrogen (test code=BUN) 7 mg/dL 6-20 Creatinine (test code=CREAT) 0.7 mg/dL 0.7-1.2 Calcium (test code=CA) 8.2 mg/dL 8.3-10.5 Prot Total (test code=TP) 7.5 g/dL 6.4-8.3 Albumin (test code=ALB) 2.7 g/dL 3.5-5.2 A/G Ratio (test code=AGRATIO) 0.6 Ratio Globulin (test code=GLOB) 4.8 2.9-3.1 Bili Total (test code=TBIL) 0.3 mg/dL 0.1-0.9 Alk Phos (test code=APHOS) 266 U/L 40-129 AST (test code=AST) 30 U/L 1-40 ALT (test code=ALT) 23 U/L 1-41 BUN/Creatinine Ratio (test code=BCRATIO) 10.0 Anion Gap (test code=AGAP) 15 mmol/L 7-16 Estimated GFR (test code=GFR) >60 mL/min/1.73m2 eGFR (estimated Glomerular Filtration Rate) is an estimated value,calculated from the patient's serum creatinine using the MDRD equation.It is NOT the patient's actual GFR. The eGFR provides a more clinicallyuseful measure of kidney disease than serum creatinine alone.This calculation takes sex and race into account, if the informationis provided. If the race is not provided, and the patient isAfrican-Comoran, multiply by 1.212. If sex is not provided, and thepatient is female, multiply by 0.742. Results for patients <18 years ofage have not been validated by the MDRD study and should be interpretedwith caution.eGFR Result Interpretation:eGFR > or=60 is in the Normal RangeeGFR < 60 may mean kidney diseaseeGFR < 15 may mean kidney failureRanges recommended by the National Kidney Foundat ion,http://nkdep.nih.gov XR CHEST 1 [id number] 14:29:19CHEST 1 VIEWCLINICAL INFORMATION: FeverCOMPARISON: April 08, 2016FINDINGS:Linear scarring and/or atelectasis is seen in the right lower lobe. There is elevation of the right hemidiaphragm. The left lung is clear. The heart size is normal. The bones are intact.IMPRESSION:Atelectasis and/or scarring in the right lower lobe. Superimposedpneumonia cannot be excluded.LOCATION: R16XR HIP 2+V, UNI.-LEFT 2017-12-31 14:27:34W79ACWO: XR HIP 2+V, UNI.-LEFTHISTORY: Pain- erythemaCOMPARISON: NoneFINDINGS:No acute fracture or dislocation. The joint spaces are preserved.Apparent sclerosis in the right inferior pubic ramus; however, thereappears to be overlying bowel loops. No soft tissue abnormality.IMPRESSION:Findings suggestive of right inguinal hernia. Possible sclerotic lesionin the right inferior pubic ramus; however, this may be secondary tosuperimposed bowel loops. If pain persists, consider further evaluationwith CT.POCT-GLUCOSE [id number] 00:42:00* Test Item Value Reference Range Comments POC-GLUCOSE METER (BEAKER) (test oirb=1432) 315 mg/dL 70-110 TESTED AT [address] [address] COMPREHENSIVE METABOLIC [id number] 21:43:00* Test Item Value Reference Range Comments TOTAL PROTEIN (BEAKER) (test qffe=814) 6.9 gm/dL 6.0-8.5 ALBUMIN (BEAKER) (test ozla=8034) 2.9 g/dL 3.5-5.0 ALKALINE PHOSPHATASE (BEAKER) (test ofjx=653) 372 U/L 30-115 BILIRUBIN TOTAL (BEAKER) (test rcji=654) 0.4 mg/dL 0.1-1.2 SODIUM (BEAKER) (test wmtq=499) 135 meq/L 135-148 POTASSIUM (BEAKER) (test tqeb=651) 3.9 meq/L 3.6-5.5 CHLORIDE (BEAKER) (test qdaz=131) 95 meq/L 98-106 CO2 (BEAKER) (test xxve=034) 29 meq/L 24-32 BLOOD UREA NITROGEN (BEAKER) (test fjwo=822) 9 mg/dL 10-26 CREATININE (BEAKER) (test cdvw=722) 0.64 mg/dL 0.50-1.20 GLUCOSE RANDOM (BEAKER) (test ipqr=021) 434 mg/dL 70-110 CALCIUM (BEAKER) (test wksl=100) 8.4 mg/dL 8.5-10.5 AST (SGOT) (BEAKER) (test sbkd=613) 51 U/L 5-40 ALT (SGPT) (BEAKER) (test wrkb=332) 47 U/L 5-50 EGFR (BEAKER) (test gmey=1291) mL/min/1.73 sq m INSUFFICIENT CLINICAL DATA TO CALCULATE ESTIMATED GFR. CBC W/PLT COUNT & AUTO [id number] 21:29:00* Test Item Value Reference Range Comments WHITE BLOOD CELL COUNT (BEAKER) (test nthu=911) 11.6 10e3/ L 4.0-10.0 RED BLOOD CELL COUNT (BEAKER) (test szpv=693) 3.40 10e6/ L 4.20-5.80 HEMOGLOBIN (BEAKER) (test axsw=577) 9.2 g/dL 13.0-16.8 HEMATOCRIT (BEAKER) (test jsqb=972) 27.9 % 40.0-50.0 MEAN CORPUSCULAR VOLUME (BEAKER) (test sorn=991) 81.9 fL 82.0-98.0 MEAN CORPUSCULAR HEMOGLOBIN (BEAKER) (test wipx=828) 27.1 pg 27.0-33.0 MEAN CORPUSCULAR HEMOGLOBIN CONC (BEAKER) (test hzum=183) 33.1 g/dL 32.0-36.0 RED CELL DISTRIBUTION WIDTH (BEAKER) (test vujk=402) 13.8 % 10.3-14.2 PLATELET COUNT (BEAKER) (test hwlc=200) 894 10e3/ L 150-430 MEAN PLATELET VOLUME (BEAKER) (test ivvx=069) 6.3 fL 6.5-10.5 NEUTROPHILS RELATIVE PERCENT (BEAKER) (test pyne=625) 51 % LYMPHOCYTES RELATIVE PERCENT (BEAKER) (test xirg=424) 34 % MONOCYTES RELATIVE PERCENT (BEAKER) (test mbxk=725) 13 % EOSINOPHILS RELATIVE PERCENT (BEAKER) (test dymz=820) 2 % BASOPHILS RELATIVE PERCENT (BEAKER) (test leeq=621) 1 % NEUTROPHILS ABSOLUTE COUNT (BEAKER) (test ggwl=195) 5.93 10e3/ L 1.80-8.00 LYMPHOCYTES ABSOLUTE COUNT (BEAKER) (test dlwy=629) 3.94 10e3/ L 1.48-4.50 MONOCYTES ABSOLUTE COUNT (BEAKER) (test xeoh=888) 1.46 10e3/ L 0.00-1.30 EOSINOPHILS ABSOLUTE COUNT (BEAKER) (test jjep=589) 0.17 10e3/ L 0.00-0.50 BASOPHILS ABSOLUTE COUNT (BEAKER) (test lxga=796) 0.10 10e3/ L 0.00-0.20 KETONE, [id number] 21:23:00* Test Item Value Reference Range Comments KETONES, BLOOD (BEAKER) (test ltah=4555) 0.1 mmol/L <0.4
[2019-11-10] MEDS ORDERED: LACTATED RINGER'S 1,000 ML IV ONE (19:45)
[2019-11-10] MEDS ORDERED: ACETAMINOPHEN 325 MG TAB PO PRN (19:45)
[2019-11-10] MEDS ORDERED: ONDANSETRON HCL INJ 2MG/ML 2ML 2 MG/ML VIAL IV STA (20:33)
[2019-11-10] MEDS ORDERED: LACTATED RINGER'S 1,000 ML ONE (20:35)
[2019-11-10] MEDS: ONDANSETRON HCL INJ 2MG/ML 2ML 2 MG/ML VIAL IV PRN (20:38)
[2019-11-10] MEDS ORDERED: PIPERACILLIN/TAZO 4.5 GM 100 ML IV ONE (20:45)
--- NOTE | 2019-11-10 20:58 | Diagnostic Imaging Report ---
PELVIS ONE IMAGE - BILATERAL HIP FOUR Images HISTORY: Pressure sores, evaluate for osteomyelitis COMPARISON: CT pelvis performed at [facility] 02/08/2019 FINDINGS: Bones: Hips: Intact and normally positioned. Mild degenerative changes of the right hip. Pelvis: Intact. No diastases of the pubic symphysis or sacroiliac joints. Cortical thickening and heterotopic ossifications of the inferior pubic rami/ischial tuberosities, right greater than left. There are erosive changes of the left issue tuberosity similar to previous exam. Cortical thickening of the lateral aspect of the left greater trochanter. Lower lumbar spine: Unremarkable. Soft tissues: Heterotopic ossifications of the soft tissues of the greater trochanter of the right femur and the lesser trochanter of the left femur. Extensive heterotopic ossifications in the soft tissues of the posterior left pelvis extending to the level of the iliac crest and throughout the proximal left thigh. Deep soft tissue ulceration of the lateral aspect of the left thigh/hip extending to the bone is larger. Soft tissue ulceration at the posterior aspect of the left proximal thigh is redemonstrated. IMPRESSION: Large decubitus ulcer of the lateral aspect of the left thigh/hip and decubitus ulcer of the proximal left thigh. Extensive heterotopic ossifications of the left pelvis, ischial tuberosities, and right greater trochanter suggestive of chronic osteomyelitis. Signed by: Dr. Abhi Rowe MD on 11/10/2019 8:54 PM
[2019-11-10] MEDS ORDERED: PIPERACILLIN IV ONE (21:06)
[2019-11-10] MEDS ORDERED: TAZO IV ONE (21:06)
[2019-11-10] MEDS ORDERED: VANCOMYCIN 1GM/NS 250 ML 500 ML IV ONE (21:30)
[2019-11-10 21:34] LABS: BASOPHILS % 0.3 % (0.0-1.0); EOSINOPHILS # (AUTO) 0.2 (0.0-0.4); EOSINOPHILS % 1.8 % (0.0-6.0); HEMATOCRIT 23.6 % (38.2-49.6); LYMPHOCYTES # (AUTO) 3.2 (1.0-3.2); LYMPHOCYTES % 24.8 % (18.0-39.1); MEAN CORPUSCULAR HGB CONC 27.5 g/dL (31-35); MEAN CORPUSCULAR VOLUME 76.4 fL (81-99); MONOCYTES % 7.5 % (4.4-11.3); NEUTROPHILS # (AUTO) 8.4 (2.1-6.9); NEUTROPHILS % 64.3 % (38.7-80.0); RED BLOOD COUNT 3.09 x10e6/uL (4.3-5.7); RED CELL DISTRIBUTION WIDTH 18.5 % (11.7-14.4)
--- NOTE | 2019-11-10 21:44 | NUR ---
4 PRESSURE ULCERS, LEFT HIP, APPROX 6 CM BY 4 CM, 6CM DEEP PURULENT DRAINAGE AND FOUL SMELL. LEFT GLUTEUS POSS. 6 CM BY 4 CM, RIGHT HIP, 6 CM BY 5 CM. RIGHT GLUTEUS PURULENT WITH NECROSIS 6 CM BY 4 CM, RIGHT OUTER ANKLE HAS A HEALED DECB, LEFT OUTER ANKLE IS HEALING WITH NO DRAINAGE. PT ALSO SELF CATHS FOR URINE.
[2019-11-10 21:46] LABS: HEMOGLOBIN 6.5 g/dL (14.0-18.0); PLATELET COUNT 1236 x10e3/uL (140-360)
--- NOTE | 2019-11-10 22:10 | NUR ---
VANC 2 GM GIVEN TO EMS TO BE STARTED AT [facility] AWARE AND DOC IS AWARE
[2019-11-10] MEDS ORDERED: VANCOMYCIN 1GM/NS 250 ML 500 ML ONE (22:14)
[2019-11-10 22:22] LABS: ANISOCYTOSIS SLIGHT; HYPOCHROMASIA MODERATE; POLYCHROMASIA FEW
[2019-11-10 22:23] LABS: MICROCYTOSIS SLIGHT; PLATELET ESTIMATE MARKEDLY INCREASED
[2019-11-10 22:24] LABS: PLATELET MORPHOLOGY COMMENT FEW LARGE
[2019-11-10 23:00] VITALS: BP 120/59
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
[2019-11-10] MEDS ORDERED: DEXTROSE 50% SYRINGE 50 ML IV PRN (23:15)
[2019-11-10] MEDS ORDERED: SODIUM CHLORIDE 0.9% 250ML 250 ML ONE (23:16)
[2019-11-10] MEDS ORDERED: VESICARE10 MG (23:29)
[2019-11-10] MEDS ORDERED: HUMALOG100 UNIT/1 (23:29)
[2019-11-10] MEDS ORDERED: LANTUS 3ML100 UNITS/ (23:29)
[2019-11-10] MEDS: INSULIN LISPRO 100 UNIT/1 ML 3ML VIAL SQ SCH (23:30)
--- NOTE | 2019-11-10 23:30 | NUR ---
Spoke with Guillermina BERMUDEZ about elevated BS 404mg/dl ordered low dose sliding scale. Informed about Pt history of self catheterization, ordered self cath prn. Ordered Rex 5/325 for pain.
[2019-11-10] MEDS: HYDROCODONE/APAP 5MG-325MG TAB PO PRN (23:50)
[2019-11-11] VITALS (8 sets, daily range): BP systolic 120–145; BP diastolic 59–82
[2019-11-11] MEDS ORDERED: SODIUM CHLORIDE 0.9% 250ML 250 ML IV ONE (04:45)
[2019-11-11] MEDS ORDERED: HYDRALAZINE HCL 20 MG/ML VIAL IV PRN (05:00)
[2019-11-11] MEDS ORDERED: POLYETHYLENE GLYCOL 3350 17 GM PACK PO PRN (05:00)
[2019-11-11] MEDS ORDERED: MELATONIN 5 MG TABLET PO PRN (05:00)
[2019-11-11] MEDS ORDERED: BACLOFEN 10 MG TAB PO PRN (05:15)
[2019-11-11] MEDS: PIPER-TAZ 3.375 GM 50 ML IV SCH ×3 (05:50→23:00)
[2019-11-11] MEDS: HYDROCODONE/APAP 5MG-325MG TAB PO PRN ×2 (05:50→18:51)
[2019-11-11] MEDS ORDERED: SODIUM CHLORIDE 0.9% 250ML 250 ML ONE ×2 (06:06→14:48)
[2019-11-11] MEDS: ONDANSETRON HCL INJ 2MG/ML 2ML 2 MG/ML VIAL IV PRN ×2 (06:10→18:51)
[2019-11-11 06:14] LABS: BASOPHILS % 0.3 % (0.0-1.0); EOSINOPHILS # (AUTO) 0.2 (0.0-0.4); EOSINOPHILS % 1.8 % (0.0-6.0); LYMPHOCYTES # (AUTO) 3.6 (1.0-3.2); LYMPHOCYTES % 31.8 % (18.0-39.1); MEAN CORPUSCULAR HEMOGLOBIN 20.8 pg (28-32); MEAN CORPUSCULAR HGB CONC 26.4 g/dL (31-35); MEAN CORPUSCULAR VOLUME 78.8 fL (81-99); MONOCYTES % 9.1 % (4.4-11.3); NEUTROPHILS # (AUTO) 6.3 (2.1-6.9); NEUTROPHILS % 55.5 % (38.7-80.0); PLATELET COUNT 978 x10e3/uL (140-360); RED BLOOD COUNT 2.74 x10e6/uL (4.3-5.7); RED CELL DISTRIBUTION WIDTH 18.7 % (11.7-14.4)
[2019-11-11 06:24] LABS: HEMOGLOBIN 5.7 g/dL (14.0-18.0)
[2019-11-11 06:25] LABS: HEMATOCRIT 21.6 % (38.2-49.6)
--- NOTE | 2019-11-11 06:25 | NUR ---
Hgb 5.7/Hct 21.6 Nadine AUTOMOTIVE SALES REPRESENTATIVE ordered x2 units of PRBCs and PICC line placement.
[2019-11-11 06:27] LABS: ALANINE AMINOTRANSFERASE 17 IU/L (0-55); ALBUMIN 1.7 g/dL (3.5-5.0); ALBUMIN/GLOBULIN RATIO 0.3 (0.8-2.0); ALKALINE PHOSPHATASE 384 IU/L (40-150); BLOOD UREA NITROGEN 9 mg/dL (7-26); BUN/CREATININE RATIO 13 (6-25); CALCIUM 8.3 mg/dL (8.4-10.2); CARBON DIOXIDE 25 mmol/L (22-29); CHLORIDE 108 mmol/L (98-107); CREATININE, SERUM 0.69 mg/dL (0.72-1.25); EST GLOMERULAR FILTRATION RATE > 60 ML/MIN (60-); GLUCOSE 276 mg/dL (74-118); SODIUM 140 mmol/L (136-145)
--- NOTE | 2019-11-11 07:00 | NUR ---
BEDSIDE SHIFT REPORT RECEIVED FROM GR[employer] RN. PT DENIES NEEDS AT THIS TIME.
[2019-11-11] MEDS: FAMOTIDINE 20 MG TAB PO SCH ×2 (08:28→17:22)
[2019-11-11] MEDS: INSULIN LISPRO 100 UNIT/1 ML 3ML VIAL SQ SCH ×4 (08:38→21:00)
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
[2019-11-11] MEDS: ACETAMINOPHEN 325 MG TAB PO PRN ×2 (11:19→19:01)
--- NOTE | 2019-11-11 12:29 | Diagnostic Imaging Report ---
EXAMINATION: CHEST XRAY LINE PLACEMENT INDICATION: ^VERIFY LINE PLACEMENT. ^[id number] ^1132 COMPARISON: None FINDINGS: AP view TUBES and LINES: Right-sided PICC line. LUNGS/PLEURA: Lungs are well inflated. There is obscuration of the right costophrenic angle likely due to atelectasis and effusion. HEART AND MEDIASTINUM: The cardiomediastinal silhouette is unremarkable. BONES AND SOFT TISSUES: No acute osseous lesion. Soft tissues are unremarkable. UPPER ABDOMEN: No free air under the diaphragm. IMPRESSION: Obscuration of the right costophrenic angle likely due to atelectasis and effusion. Signed by: Obi Lindo MD on 11/11/2019 12:27 PM
--- NOTE | 2019-11-11 14:45 | NUR ---
BLOOD TRANSFUSION STARTED. PT TOLERATING.
[2019-11-11] MEDS: ENOXAPARIN SOD INJ 40 MG/0.4 ML SYR SC SCH (17:22)
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
--- NOTE | 2019-11-11 21:00 | NUR ---
PATIENT IS AOX4, NO SIGNS OF DISTRESS NOTED. PATIENT IS CURRENTLY FINISHING UP SECOND UNIT OF BLOOD AND SHOWS NO SIGNS OF REACTION AND CURRENTLY VOICES NO PAIN AT THIS TIME. PATIENT HAS MULTIPLE WOUND ON LEFT HEEL, BILATERAL HIPS AND BOTTOM, DRESSINGS ARE CLEAN, DRY, AND INTACT. BED IS IN LOWEST POSITION, BOTH SIDE RAILS ARE UP, CALL LIGHT WITHIN REACH, WILL CONTINUE TO MONITOR.
--- NOTE | 2019-11-11 21:20 | NUR ---
PATIENT HAS FINISHED SECOND UNIT OF BLOOD, NO NEGATIVE REACTIONS NOTED. VITALS ARE STABLE, STARTING PATIENT ON ANTIBIOTIC, CONTINUING TO MONITOR.
[2019-11-11] MEDS: VANCOMYCIN 1GM/NS 250 ML 250 ML IV SCH (21:34)
[2019-11-12] VITALS (7 sets, daily range): BP systolic 105–155; BP diastolic 58–85
--- NOTE | 2019-11-12 01:42 | NUR ---
PATIENT'S DRESSING ON LEFT HIP HAS FALLEN OFF, WOUND WAS CLEANED AND REPACKED, COVERED WITH CLEAN AND DRY DRESSING.
[2019-11-12] MEDS: PIPER-TAZ 3.375 GM 50 ML IV SCH ×4 (04:54→17:36)
[2019-11-12 05:21] LABS: BASOPHILS % 0.2 % (0.0-1.0); EOSINOPHILS # (AUTO) 0.2 (0.0-0.4); EOSINOPHILS % 1.7 % (0.0-6.0); HEMATOCRIT 23.3 % (38.2-49.6); LYMPHOCYTES # (AUTO) 4.1 (1.0-3.2); LYMPHOCYTES % 33.7 % (18.0-39.1); MEAN CORPUSCULAR HEMOGLOBIN 22.1 pg (28-32); MEAN CORPUSCULAR HGB CONC 28.3 g/dL (31-35); MEAN CORPUSCULAR VOLUME 78.2 fL (81-99); MONOCYTES # (AUTO) 0.9 (0.2-0.8); MONOCYTES % 7.6 % (4.4-11.3); NEUTROPHILS # (AUTO) 6.6 (2.1-6.9); NEUTROPHILS % 54.4 % (38.7-80.0); PLATELET COUNT 1019 x10e3/uL (140-360); RED BLOOD COUNT 2.98 x10e6/uL (4.3-5.7); RED CELL DISTRIBUTION WIDTH 18.4 % (11.7-14.4)
[2019-11-12 05:32] LABS: HEMOGLOBIN 6.6 g/dL (14.0-18.0)
[2019-11-12 05:49] LABS: % IRON SATURATION 9 % (15-50); ANION GAP 12.2 mmol/L (8-16); BLOOD UREA NITROGEN 10 mg/dL (7-26); BUN/CREATININE RATIO 15 (6-25); CALCIUM 8.4 mg/dL (8.4-10.2); CARBON DIOXIDE 28 mmol/L (22-29); CHLORIDE 101 mmol/L (98-107); CREATININE, SERUM 0.65 mg/dL (0.72-1.25); EST GLOMERULAR FILTRATION RATE > 60 ML/MIN (60-); GLUCOSE 258 mg/dL (74-118); IRON 24 ug/dL (65-175); MAGNESIUM 1.9 MG/DL (1.3-2.1); POTASSIUM 4.2 mmol/L (3.5-5.1); SODIUM 137 mmol/L (136-145); TOTAL IRON BINDING CAPACITY 255 ug/dL (261-478); TRANSFERRIN 182 mg/dL (174-364)
[2019-11-12 06:00] LABS: FERRITIN 81.69 ng/mL (21.81-274.66); THYROID STIMULATING HORMONE 5.023 uIU/mL (0.350-4.940)
[2019-11-12 06:13] LABS: FOLATE 8.5 ng/mL (7.0-15.4)
[2019-11-12] MEDS: ONDANSETRON HCL INJ 2MG/ML 2ML 2 MG/ML VIAL IV PRN (06:45)
--- NOTE | 2019-11-12 07:00 | NUR ---
BEDSIDE SHIFT REPORT RECEIVED FROM TEST DATA DEVELOPER RN LILIANA. PT DENIES NEEDS AT THIS TIME.
[2019-11-12] MEDS: FAMOTIDINE 20 MG TAB PO SCH ×2 (08:58→17:36)
[2019-11-12] MEDS: INSULIN LISPRO 100 UNIT/1 ML 3ML VIAL SQ SCH ×4 (09:04→22:01)
[2019-11-12] MEDS: HYDROCODONE/APAP 5MG-325MG TAB PO PRN ×2 (12:37→21:30)
--- NOTE | 2019-11-12 13:05 | NUR ---
Visit made by the Spiritual Care Department Pastoral Visitor, Faustino Ho. PV provided pastoral presence, hospitality, and supportive listening. Pastoral Visitor informed pt/family of the scope of [employer] and availability. GERMANIA BARROW News Videotape Editor Spiritual Care Department O: [phone] Pager: [phone] ([phone] number calling from)
[2019-11-12] MEDS ORDERED: SODIUM CHLORIDE 0.9% 250ML 250 ML IV ONE (15:00)
[2019-11-12] MEDS: ENOXAPARIN SOD INJ 40 MG/0.4 ML SYR SC SCH (17:36)
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
[2019-11-12] MEDS ORDERED: SODIUM CHLORIDE 0.9% 250ML 250 ML ONE (21:27)
[2019-11-12] MEDS: VANCOMYCIN 1GM/NS 250 ML 250 ML IV SCH (21:54)
[2019-11-12] MEDS: OXYBUTYNIN CHLORIDE XL 5 MG TAB PO SCH (23:11)
[2019-11-13] VITALS (8 sets, daily range): BP systolic 113–148; BP diastolic 56–83
[2019-11-13] MEDS: PIPER-TAZ 3.375 GM 50 ML IV SCH ×5 (00:55→23:27)
--- NOTE | 2019-11-13 05:00 | NUR ---
Dressing changed to right/left hip, right/left buttocks, left ankle: areas cleaned with NS, wet to dry dakins, covered with 4x4, abd pads and paper tape. Tolerated well.
[2019-11-13 05:30] LABS: BASOPHILS % 0.3 % (0.0-1.0); EOSINOPHILS # (AUTO) 0.2 (0.0-0.4); EOSINOPHILS % 2.3 % (0.0-6.0); HEMATOCRIT 24.5 % (38.2-49.6); HEMOGLOBIN 7.2 g/dL (14.0-18.0); LYMPHOCYTES # (AUTO) 3.6 (1.0-3.2); LYMPHOCYTES % 35.5 % (18.0-39.1); MEAN CORPUSCULAR HEMOGLOBIN 22.8 pg (28-32); MEAN CORPUSCULAR HGB CONC 29.4 g/dL (31-35); MEAN CORPUSCULAR VOLUME 77.5 fL (81-99); MONOCYTES # (AUTO) 0.9 (0.2-0.8); MONOCYTES % 8.6 % (4.4-11.3); NEUTROPHILS # (AUTO) 5.3 (2.1-6.9); NEUTROPHILS % 51.6 % (38.7-80.0); PLATELET COUNT 908 x10e3/uL (140-360); RED BLOOD COUNT 3.16 x10e6/uL (4.3-5.7); RED CELL DISTRIBUTION WIDTH 17.9 % (11.7-14.4)
[2019-11-13 05:47] LABS: ANION GAP 12.4 mmol/L (8-16); BLOOD UREA NITROGEN 11 mg/dL (7-26); BUN/CREATININE RATIO 17 (6-25); CALCIUM 7.8 mg/dL (8.4-10.2); CARBON DIOXIDE 27 mmol/L (22-29); CHLORIDE 101 mmol/L (98-107); CREATININE, SERUM 0.66 mg/dL (0.72-1.25); EST GLOMERULAR FILTRATION RATE > 60 ML/MIN (60-); GLUCOSE 280 mg/dL (74-118); PHOSPHORUS 3.7 MG/DL (2.3-4.7); POTASSIUM 4.4 mmol/L (3.5-5.1); SODIUM 136 mmol/L (136-145)
--- NOTE | 2019-11-13 07:15 | NUR ---
Bedside report and rounds completed with oncoming nurse. Patient in bed resting, call light within reach. No issues or concerns noted.
[2019-11-13 08:00] LABS: HYPOCHROMASIA SLIGHT; RBC MORPHOLOGY COMMENT ABNORMAL
[2019-11-13] MEDS: OXYBUTYNIN CHLORIDE XL 5 MG TAB PO SCH (08:27)
[2019-11-13] MEDS: FAMOTIDINE 20 MG TAB PO SCH ×2 (08:27→16:59)
[2019-11-13] MEDS: INSULIN LISPRO 100 UNIT/1 ML 3ML VIAL SQ SCH ×6 (08:30→20:15)
[2019-11-13] MEDS ORDERED: SODIUM HYPOCHLORITE 0.25% 480 ML SOLN IR ONE (09:00)
[2019-11-13] MEDS: INSULIN GLARGINE 100 UNITS/ML VIAL SQ SCH ×2 (09:04→20:15)
[2019-11-13] MEDS: HYDROCODONE/APAP 5MG-325MG TAB PO PRN ×3 (10:20→23:27)
--- NOTE | 2019-11-13 11:16 | NUR ---
Spoke to pt regarding LTAC order. Informed pt that we would have to verify with insurance to see if he has LTAC benefits. He stated that his spoke with Heidi from [facility] and was told that they would approve. Pt states they talked about facilities in [place]. CM informed him that we should still have to submit and get approval. Pt verbalized understanding. CM informed pt about the two LTAC facilities in [place] - [facility] and [facility]. Pt states he was fine with either one. Choice letter signed and placed in chart. Copy to pt. Liane Atwood with [facility] checked with intake and said Dewayne PEARL does not have LTAC benefits. FS faxed to [facility] to check benefits at [phone]. [facility] once they verify.
[2019-11-13] MEDS: ACETAMINOPHEN/CODEINE 300MG - 30MG TAB PO PRN (11:28)
[2019-11-13] MEDS: ONDANSETRON HCL INJ 2MG/ML 2ML 2 MG/ML VIAL IV PRN ×2 (12:09→22:41)
--- NOTE | 2019-11-13 15:46 | NUR ---
Received phone call from [facility] with Dewayne ( ext [phone]). She states that pt has no LTAC, SNF, or inpatient rehab benefits. Does have home health benefits. CM informed her that pt will be needing IV abx and home health for wound care. She will look up who is in network and let CM know. Waqar BERMUDEZ was informed about pt's benefits.
[2019-11-13] MEDS: ENOXAPARIN SOD INJ 40 MG/0.4 ML SYR SC SCH (16:57)
--- NOTE | 2019-11-13 18:00 | NUR ---
Dressing changes done to all wounds.
[2019-11-13] MEDS ORDERED: LEVOTHYROXINE SODIUM 50 MCG TAB PO ONE (18:45)
--- NOTE | 2019-11-13 19:00 | NUR ---
Bedside report and rounds completed with off going nurse. Patient in bed, call light within reach. No issues or concerns noted. Will continue to monitor closely.
[2019-11-13] MEDS: VANCOMYCIN 1GM/NS 250 ML 250 ML IV SCH (20:01)
--- NOTE | 2019-11-13 23:28 | NUR ---
Patient requesting to not be woke up for midnight and 4 am vital. Educated patient on importance of v/s and understand concern of not getting adequate rest in hospital. V/S taken for midnight and can take v/s at 0500 instead of 0400. Can do dressing changes, IV antibiotics, vs and lab work in am at 0500 to cluster care to allow for more time for rest. Patient agreed with POC. Informed patient that would still be doing rounding but would not wake patient up, patient agreed. Will continue to monitor.
[2019-11-14] VITALS (8 sets, daily range): BP systolic 104–142; BP diastolic 54–82
[2019-11-14] MEDS: ACETAMINOPHEN/CODEINE 300MG - 30MG TAB PO PRN (01:24)
--- NOTE | 2019-11-14 05:50 | NUR ---
Dressing changed to all wounds and tolerated well. Addendum: 11/14/19 at 0616 by Sofya Maciel RN Per ray
[2019-11-14 06:16] LABS: BASOPHILS # (AUTO) 0.1 (0.0-0.1); BASOPHILS % 0.4 % (0.0-1.0); EOSINOPHILS # (AUTO) 0.3 (0.0-0.4); EOSINOPHILS % 2.5 % (0.0-6.0); HEMATOCRIT 27.9 % (38.2-49.6); LYMPHOCYTES # (AUTO) 3.7 (1.0-3.2); LYMPHOCYTES % 30.4 % (18.0-39.1); MEAN CORPUSCULAR HEMOGLOBIN 22.7 pg (28-32); MEAN CORPUSCULAR HGB CONC 28.7 g/dL (31-35); MEAN CORPUSCULAR VOLUME 79.3 fL (81-99); MONOCYTES % 8.4 % (4.4-11.3); NEUTROPHILS % 57.3 % (38.7-80.0); PLATELET COUNT 924 x10e3/uL (140-360); RED BLOOD COUNT 3.52 x10e6/uL (4.3-5.7); RED CELL DISTRIBUTION WIDTH 18.7 % (11.7-14.4)
[2019-11-14] MEDS: PIPER-TAZ 3.375 GM 50 ML IV SCH ×4 (06:17→23:05)
[2019-11-14] MEDS: LEVOTHYROXINE SODIUM 50 MCG TAB PO SCH (06:17)
[2019-11-14 06:51] LABS: FERRITIN 54.35 ng/mL (21.81-274.66)
[2019-11-14] MEDS: FAMOTIDINE 20 MG TAB PO SCH ×2 (06:52→16:55)
--- NOTE | 2019-11-14 07:20 | NUR ---
Bedside report and rounds completed with oncoming nurse. Patient in bed resting, call light within reach. No issues or concerns noted.
[2019-11-14 08:05] LABS: HYPOCHROMASIA SLIGHT; RBC MORPHOLOGY COMMENT ABNORMAL
[2019-11-14] MEDS: INSULIN LISPRO 100 UNIT/1 ML 3ML VIAL SQ SCH ×6 (09:00→21:00)
[2019-11-14] MEDS: INSULIN GLARGINE 100 UNITS/ML VIAL SQ SCH ×2 (09:00→21:38)
[2019-11-14] MEDS: OXYBUTYNIN CHLORIDE XL 5 MG TAB PO SCH (09:00)
[2019-11-14] MEDS ORDERED: LEVOFLOXACIN 750MG/D5W 150ML 150 ML IV SCH (10:00)
[2019-11-14] MEDS: IRON SUCROSE 100 MG in SODIUM CHLORIDE 0.9% 100 ML 100 ML IV SCH (13:37)
[2019-11-14] MEDS ORDERED: IRON SUCROSE 100 MG in SODIUM CHLORIDE 0.9% 100 ML 100 ML IV SCH (14:30)
--- NOTE | 2019-11-14 15:00 | NUR ---
Received call from pt's Vaishali Mcgee ([phone]). She is concerned because pt called her and told her he was getting discharged today with 2 weeks of oral abx. She stated that any oral abx that he's been on previously did not work for him. Pt has chronic osteomyelitis. Pt's states that she is his provider at home. Pt was going to [facility] wound clinic once a week, but that was stopped and he was supposed to be set up with home health for wound care but home health company did not come out. States she thinks it was [facility]. also stated that a plastic surgeon was consulted, but all they did was take pictures and never got back with them. She also informed Cm that pt was at [facility] May to June of last year, on Medicaid pending. States if they have to go Medicaid pending again so that pt can receive IV abx, then they are willing to do that. TOMAS spoke to AIDAN Zavaleta and informed him of conversation with . Waqar stated that Dr. Martinez is not planning on doing any debridement at this time. He was planning to discharge pt home with oral abx, since that was what was recommended by ID, but he is fine with facility placement for IV abx if pt is agreeable. TOMAS also spoke to JONATHON Awad regarding possible facility placement and abx recommendations. States to keep pt on current abx for now and will reassess tomorrow. TOMAS and Angelita JUAREZ to pt's bedside to discuss choice for facility. Pt states that he will not go anywhere and that he wants wound debridement. Informed the pt that from conversation with GAS MAKER/MD, Dr. Martinez is not planning a debridement at this time. Pt states he will leave here and go to [facility] in the [facility] where he will get his debridement, but wants a signed note from Dr. Martinez saying he will not do the debridement at this time. TOMAS and Angelita JUAREZ called pt's back to update her that pt is refusing placement at this time. She also spoke with AIDAN Zavaleta and VINAYAK Leggett regarding plan of care. states she thinks pt needs to go to facility for IV abx, with follow up with wound care outpatient. She states she will talk to pt and call CM back.
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
[2019-11-14] MEDS: ENOXAPARIN SOD INJ 40 MG/0.4 ML SYR SC SCH (16:57)
--- NOTE | 2019-11-14 17:02 | NUR ---
SPOKE WITH PT AND AND ARE IN AGREEMENT FOR [facility], SIGNED CHOICE FILED IN CHART. PACKET FORWARDED TO FACILITY WITH [facility] AND RTF PUT ON PACKET. WILL UPDATE WHEN RECEIVE AUTH.
--- NOTE | 2019-11-14 18:15 | NUR ---
Dressing changes completed to all wounds, left and right hip and buttock
[2019-11-14] MEDS: HYDROCODONE/APAP 5MG-325MG TAB PO PRN (18:52)
--- NOTE | 2019-11-14 20:42 | NUR ---
Reported to Cas BERMUDEZ that patient c/o having to straight cath more frequently, normally only has to do every 4 hrs but having to do every 2 hrs and having urine leakage even after straight cath. New order: insert pierson.
--- NOTE | 2019-11-14 21:00 | NUR ---
16 F pierson placed, 10 cc in balloon, return of clear, yellow urine. Area cleansed with soap/water and betadine per protocol and sterile technique maintained. Patient tolerated well.
[2019-11-14] MEDS: VANCOMYCIN 1GM/NS 250 ML 250 ML IV SCH (21:27)
[2019-11-15] VITALS (8 sets, daily range): BP systolic 115–150; BP diastolic 53–92
[2019-11-15] MEDS: HYDROCODONE/APAP 5MG-325MG TAB PO PRN ×2 (00:50→14:20)
--- NOTE | 2019-11-15 05:30 | NUR ---
Dressing changed to all wounds per MD orders, tolerated well
[2019-11-15] MEDS: ACETAMINOPHEN/CODEINE 300MG - 30MG TAB PO PRN (05:50)
[2019-11-15] MEDS: LEVOTHYROXINE SODIUM 50 MCG TAB PO SCH (06:00)
[2019-11-15] MEDS: PIPER-TAZ 3.375 GM 50 ML IV SCH (06:00)
[2019-11-15] MEDS: FAMOTIDINE 20 MG TAB PO SCH ×2 (06:00→16:30)
[2019-11-15] MEDS: SODIUM HYPOCHLORITE 0.25% 480 ML SOLN IR SCH (06:02)
--- NOTE | 2019-11-15 07:00 | NUR ---
RCD PT AT BED PT IS ALERT AND ORIENTED RESTING ON BED IV PATENT BY SALINE FLUSH BED LOW AND LOCKED CALL LIGHT IN REACH
--- NOTE | 2019-11-15 07:13 | NUR ---
Bedside report and rounds completed with oncoming nurse. Patient in bed resting, call light within reach. No issues or concerns noted.
[2019-11-15] MEDS: INSULIN LISPRO 100 UNIT/1 ML 3ML VIAL SQ SCH ×6 (07:30→21:00)
[2019-11-15] MEDS: OXYBUTYNIN CHLORIDE XL 5 MG TAB PO SCH (09:00)
[2019-11-15] MEDS: INSULIN GLARGINE 100 UNITS/ML VIAL SQ SCH ×2 (09:00→21:00)
[2019-11-15] MEDS: IRON SUCROSE 100 MG in SODIUM CHLORIDE 0.9% 100 ML 100 ML IV SCH (12:00)
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
[2019-11-15] MEDS: AMPICILLIN SOD/SULBACTAM 3GM 100 ML IV SCH ×2 (14:00→21:28)
--- NOTE | 2019-11-15 15:00 | NUR ---
DRESSING CHANGED ON THE LOWER BACK
[2019-11-15] MEDS: ENOXAPARIN SOD INJ 40 MG/0.4 ML SYR SC SCH (16:32)
[2019-11-15] MEDS ORDERED: ONDANSETRON HCL 4 MG ORAL DISINTEGRATING TAB PO PRN (16:45)
--- NOTE | 2019-11-15 18:42 | NUR ---
PT RESTING ON BED BED SIDE REPORT GIVEN TO ONCOMING NURSE
[2019-11-15] MEDS: VANCOMYCIN 1GM/NS 250 ML 250 ML IV SCH (22:29)
[2019-11-16] VITALS: BP 118/58
[2019-11-16] MEDS: ACETAMINOPHEN/CODEINE 300MG - 30MG TAB PO PRN (03:29)
[2019-11-16 04:00] VITALS: BP 112/61
[2019-11-16 05:10] LABS: BASOPHILS % 0.3 % (0.0-1.0); EOSINOPHILS # (AUTO) 0.2 (0.0-0.4); EOSINOPHILS % 1.5 % (0.0-6.0); HEMATOCRIT 29.7 % (38.2-49.6); HEMOGLOBIN 8.3 g/dL (14.0-18.0); LYMPHOCYTES # (AUTO) 3.8 (1.0-3.2); LYMPHOCYTES % 29.8 % (18.0-39.1); MEAN CORPUSCULAR HEMOGLOBIN 22.6 pg (28-32); MEAN CORPUSCULAR HGB CONC 27.9 g/dL (31-35); MEAN CORPUSCULAR VOLUME 80.9 fL (81-99); MONOCYTES # (AUTO) 1.3 (0.2-0.8); MONOCYTES % 9.9 % (4.4-11.3); NEUTROPHILS # (AUTO) 7.4 (2.1-6.9); NEUTROPHILS % 57.5 % (38.7-80.0); PLATELET COUNT 901 x10e3/uL (140-360); RED BLOOD COUNT 3.67 x10e6/uL (4.3-5.7); RED CELL DISTRIBUTION WIDTH 19.4 % (11.7-14.4)
[2019-11-16] MEDS: AMPICILLIN SOD/SULBACTAM 3GM 100 ML IV SCH ×2 (05:38→14:00)
[2019-11-16] MEDS: LEVOTHYROXINE SODIUM 50 MCG TAB PO SCH (05:38)
[2019-11-16] MEDS: HYDROCODONE/APAP 5MG-325MG TAB PO PRN ×2 (05:38→12:30)
[2019-11-16] MEDS: SODIUM HYPOCHLORITE 0.25% 480 ML SOLN IR SCH (05:39)
[2019-11-16 05:48] LABS: BLOOD UREA NITROGEN 13 mg/dL (7-26); BUN/CREATININE RATIO 18 (6-25); CALCIUM 8.2 mg/dL (8.4-10.2); CARBON DIOXIDE 25 mmol/L (22-29); CHLORIDE 102 mmol/L (98-107); CREATININE, SERUM 0.71 mg/dL (0.72-1.25); EST GLOMERULAR FILTRATION RATE > 60 ML/MIN (60-); GLUCOSE 201 mg/dL (74-118); MAGNESIUM 2.1 MG/DL (1.3-2.1); PHOSPHORUS 3.5 MG/DL (2.3-4.7); SODIUM 133 mmol/L (136-145)
--- NOTE | 2019-11-16 07:05 | NUR ---
RCD PT AT BED PT IS ALERT AND ORIENTED RESTING ON BED IV PATENT BY SALINE FLUSH BUSTILLO DRAINING BY GRAVITY BED LOW AND LOCKED CALL LIGHT IN REACH
[2019-11-16] MEDS: FAMOTIDINE 20 MG TAB PO SCH ×2 (07:30→16:30)
[2019-11-16] MEDS: INSULIN LISPRO 100 UNIT/1 ML 3ML VIAL SQ SCH ×5 (07:30→16:30)
[2019-11-16 08:35] VITALS: BP 111/62
[2019-11-16 08:45] VITALS: BP 112/61
[2019-11-16 08:53] LABS: ANISOCYTOSIS SLIGHT; HYPOCHROMASIA SLIGHT; PLATELET ESTIMATE MARKEDLY INCREASED; PLATELET MORPHOLOGY COMMENT NORMAL; POLYCHROMASIA FEW; RBC MORPHOLOGY COMMENT ABNORMAL
[2019-11-16 08:54] LABS: MICROCYTOSIS SLIGHT
[2019-11-16] MEDS: OXYBUTYNIN CHLORIDE XL 5 MG TAB PO SCH (09:00)
[2019-11-16] MEDS: INSULIN GLARGINE 100 UNITS/ML VIAL SQ SCH (09:00)
[2019-11-16] MEDS ORDERED: HUMALOG100 UNIT/1 SC (11:25)
[2019-11-16] MEDS ORDERED: DAKIN'S480 ML IR (11:25)
[2019-11-16] MEDS ORDERED: ZINC SULFATE220 M1 PO (11:25)
[2019-11-16] MEDS ORDERED: Multivitamins/Minerals PO (11:25)
[2019-11-16] MEDS ORDERED: SYNTHROID50 MCG PO (11:25)
[2019-11-16] MEDS ORDERED: ASCORBIC ACID500 MG PO (11:25)
[2019-11-16] MEDS ORDERED: BACLOFEN10 MG PO (11:25)
[2019-11-16] MEDS ORDERED: FERROUS SULFAT325 MG PO (11:25)
[2019-11-16] MEDS ORDERED: MAG-OXIDE400 MG PO (11:25)
[2019-11-16] MEDS ORDERED: Calcium Carbonate PO (11:25)
[2019-11-16] MEDS ORDERED: LANTUS 3ML100 UNITS/ SQ (11:25)
[2019-11-16] MEDS ORDERED: COLACE100 MG PO (11:25)
[2019-11-16] MEDS: IRON SUCROSE 100 MG in SODIUM CHLORIDE 0.9% 100 ML 100 ML IV SCH (12:00)
[2019-11-16 12:32] VITALS: BP 124/71
--- NOTE | 2019-11-16 13:10 | NUR ---
ZACK LLOYD TELEMARKETER SUPERVISOR TALKED TO DR PICKERING REGARDING HOME ANTIBIOTIC HE SAID ITS OK
--- NOTE | 2019-11-16 14:31 | NUR ---
Called pt's Vaishali and had Dr. Fu talk to her about treatment plan. He explained to her that if pt is denied skilled services for [facility], the plan will be for pt to go home on 8 weeks of oral abx. He also spoke with her regarding the importance of offloading wounds. Rx for abx placed on chart.
[2019-11-16 16:53] VITALS: BP 133/75
[2019-11-16] MEDS ORDERED: ASCORBIC ACID 500 MG TAB PO SCH (17:00)
[2019-11-16] MEDS ORDERED: DOCUSATE SODIUM 100 MG CAP PO SCH (17:00)
[2019-11-16] MEDS: ENOXAPARIN SOD INJ 40 MG/0.4 ML SYR SC SCH (17:00)
[2019-11-16] MEDS ORDERED: FERROUS SULFATE 325 MG TAB PO SCH (17:00)
[2019-11-16] MEDS ORDERED: MAGNESIUM OXIDE 400 MG TAB PO SCH (17:00)
[2019-11-16] MEDS ORDERED: OYST-CAL-D 500MG TABLET PO SCH (17:00)
[2019-11-16] MEDS ORDERED: LEVAQUIN500 MG PO ×2 (17:05→18:15)
--- NOTE | 2019-11-16 17:10 | NUR ---
HARRIET BUSTILLO BY ORDER
--- NOTE | 2019-11-16 17:15 | NUR ---
DC PICC LINE BY ORDER
--- NOTE | 2019-11-16 17:23 | NUR ---
Spoke with Melinda at [facility]. They received denial for skilled services from insurance. TOMAS notified AIDAN Mccoy. Received order to set up home health for wound care and DC today. TOMAS spoke to pt at bedside. Informed him about denial. Pt stated that he was supposed to be set up for home health with [facility], but they never came out. Would like to use a different company. Choice letter signed for [facility], [facility], [facility]. Copy of choice letter with each company's contact information was given to pt. Informed him that referral will be sent to [facility]. TOMAS asked that he call them if he does not hear from them within 24 hrs of discharge. Signed choice letter placed in front of chart. Referral was faxed to [facility] at [phone] / . Addendum: 11/16/19 at 1734 by Laina Nova CM TOMAS spoke with Dr. Martinez regarding follow up appt. He states to give pt number to wound clinic that he goes to and have him call for an appointment [phone]. Wound clinic number was given to pt and pt instructed to call as soon as possible.
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
--- NOTE | 2019-11-16 18:00 | NUR ---
PT REQUESTED THAT HE DONT HAVE ANY RIDE IS NOT COMING HE NEED TAXI NOTIFIED THE CARAMEL CUTTER MACHINE SHE ARRANGING TAXI
--- NOTE | 2019-11-16 18:00 | NUR ---
NO BLEEDING NOTED ON PICC LINE SITE
--- NOTE | 2019-11-16 18:45 | NUR ---
PT RESTING ON BED BED SIDE REPORT GIVEN TO ONCOMING NURSE
[2019-11-17] MEDS ORDERED: LEVOTHYROXINE SODIUM 25 MCG TABLET PO SCH (06:00)
[2019-11-17] MEDS ORDERED: MULTIVITAMINS/MINERALS TAB PO SCH (09:00)
[2019-11-17] MEDS ORDERED: ZINC SULFATE 220 MG CAP PO SCH (09:00)
--- NOTE | 2019-11-17 09:43 | NUR ---
CALLED [facility] TO VERIFY THEY RECEIVED THE CLINICALS FOR THIS PT, ADENIKE [phone] STATED THEY DID AND ARE RUNNING THE BENEFITS CURRENTLY AND WILL CALL BACK TO DETERMINE IF ABLE TO SEE PT.
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
== END 2019-11-16 21:57 | disposition home health service (06) | DRG 871 ==
LOC: FSED 19:23 → ERHOLD 21:02 → MED/SURG2 22:39
PROVIDERS: ADMIT Internal Medicine; ATTEND Internal Medicine
PROC: 30243N1 Transfusion of Nonautologous Red Blood Cells into Central Vein, Percutaneous Approach (ICD-10-PCS; principal; 2019-11-11)
PROC: 05HY33Z Insertion of Infusion Device into Upper Vein, Percutaneous Approach (ICD-10-PCS; principal; 2019-11-11)
DX: A41.9 Sepsis, unspecified organism (principal); L89.523 Pressure ulcer of left ankle, stage 3; L89.324 Pressure ulcer of left buttock, stage 4; L89.314 Pressure ulcer of right buttock, stage 4; L89.224 Pressure ulcer of left hip, stage 4; L89.214 Pressure ulcer of right hip, stage 4; L89.154 Pressure ulcer of sacral region, stage 4; E43 Unspecified severe protein-calorie malnutrition; G82.20 Paraplegia, unspecified; E87.2 Acidosis; M86.69 Other chronic osteomyelitis, multiple sites; M86.19 Other acute osteomyelitis, multiple sites; L03.317 Cellulitis of buttock; D50.9 Iron deficiency anemia, unspecified; B95.62 Methicillin resistant Staphylococcus aureus infection as the cause of diseases classified elsewhere; E11.40 Type 2 diabetes mellitus with diabetic neuropathy, unspecified; E11.69 Type 2 diabetes mellitus with other specified complication; E11.65 Type 2 diabetes mellitus with hyperglycemia; N31.9 Neuromuscular dysfunction of bladder, unspecified; R53.81 Other malaise; Z93.3 Colostomy status; Z79.4 Long term (current) use of insulin; Z74.01 Bed confinement status
CPT/HCPCS: 36415; 36569; 72170; 73521; 80048; 80053; 80202; 81003; 82607; 82728; 82746; 82948; 83036; 83540; 83605; 83735; 84100; 84134; 84443; 84466; 85025; 85651; 86140; 86850; 86900; 86920; 87040; 87071; 87086; 87186; 87205; 93925; 96372; J0295; J1650; J1756; J1815; J2405; J2543; J3370; J7050; J7121; P9016; Q0162

== ENCOUNTER 2020-05-21 20:01 | Emergency (ER) | payer OTHER ==
[~2020-05-21] VITALS: Ht 190.5 cm; Wt 99.8 kg
[~2020-05-21 20:01] MED LIST: ASCORBIC ACID500 MG PO; BACLOFEN10 MG PO; COLACE100 MG PO; Calcium Carbonate PO; DAKIN'S480 ML IR; FERROUS SULFAT325 MG PO; HUMALOG100 UNIT/1; HUMALOG100 UNIT/1 SC; LANTUS 3ML100 UNITS/; LANTUS 3ML100 UNITS/ SQ; LEVAQUIN500 MG PO; MAG-OXIDE400 MG PO; Multivitamins/Minerals PO; SYNTHROID50 MCG PO; VESICARE10 MG; ZINC SULFATE220 M1 PO
--- NOTE | 2020-05-21 21:51 | Diagnostic Imaging Report ---
FEMUR 2 VIEW RT - HOPD - 5 views HISTORY: Pain COMPARISON: 11/10/2019 IMPRESSION: Heterotopic ossification adjacent to the greater trochanter and right inferior pubic ramus. No definite evidence of acute displaced fracture or dislocation of the right femur. Degenerative changes of right hip and knee joints. Signed by: Dr. Stan Messina MD on 05/21/2020 9:48 PM
--- NOTE | 2020-05-21 21:54 | Diagnostic Imaging Report ---
FOOT 3 VIEW RT - HOPD - 3 views HISTORY: Pain COMPARISON: None available. IMPRESSION: Generalized mineralization limits evaluation. No definite evidence of acute displaced fracture or dislocation of the right foot. Mild diffuse soft tissue swelling. Scattered degenerative changes. Signed by: Dr. Stan Messina MD on 05/21/2020 9:51 PM
--- NOTE | 2020-05-21 21:59 | Diagnostic Imaging Report ---
TIB/FIB 2VW RT - HOPD - 5 views HISTORY: Pain COMPARISON: None available. IMPRESSION: No evidence of acute displaced fracture or dislocation. Old fracture deformities of mid to distal tibia. There is also a subtle lucent line and mild deformity of distal fibula, probably also an old fracture deformity. However, acute nondisplaced fibular fracture line in this area cannot be entirely excluded. Signed by: Dr. Stan Messina MD on 05/21/2020 9:55 PM
--- NOTE | 2020-05-21 22:01 | Diagnostic Imaging Report ---
EXAM: Right Lower Extremity Venous Duplex Ultrasound INDICATION: ^swelling ^[id number] ^2120 COMPARISON: None TECHNIQUE: Velazco scale, color Doppler and spectral waveform analysis of the right lower extremity deep venous system was performed. FINDINGS: Very limited study. Common Femoral: Fully compressible with normal spontaneous waveforms. Proximal Greater Saphenous: Fully compressible. Femoral: Fully compressible with normal spontaneous waveforms. Normal response to augmentation. Proximal Deep Femoral: Normal spontaneous waveforms. Popliteal: Fully compressible with normal spontaneous waveforms. IMPRESSION: No definite evidence of deep venous thrombosis above the right calf. Signed by: Dr. Stan Messina MD on 05/21/2020 9:58 PM
[2020-05-21 22:14] VITALS: BP 136/72
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
--- OUTSIDE RECORDS SUMMARY | 2020-05-21 22:41 | XMS REPORT | Clinical Summary ---
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 12/02/2019 12:44 PM CDT POCT-GLUCOSE METER Routine 12/02/2019 8:04 AM CDT (CELLAVISION MANUAL DIFF) Routine 12/02/2019 6:25 AM CDT CBC W/PLT COUNT & AUTO Routine 12/02/2019 DIFFERENTIAL 6:25 AM CDT BASIC METABOLIC PANEL (7) Routine 12/02/2019 6:25 AM CDT MAGNESIUM Routine 12/02/2019 6:25 AM CDT CBC W/PLT COUNT & AUTO Routine 12/02/2019 DIFFERENTIAL 6:25 AM CDT POCT-GLUCOSE METER Routine 12/01/2019 8:42 PM CDT POCT-GLUCOSE METER Routine 12/01/2019 5:27 PM CDT POCT-GLUCOSE METER Routine 12/01/2019 12:19 PM CDT (CELLAVISION MANUAL DIFF) Routine 12/01/2019 9:59 AM CDT CBC W/PLT COUNT & AUTO Routine 12/01/2019 DIFFERENTIAL 9:59 AM CDT TSH/FREE T4 IF INDICATED Routine 12/01/2019 9:59 AM CDT C-REACTIVE PROTEIN Routine 12/01/2019 9:59 AM CDT PREALBUMIN Routine 12/01/2019 9:59 AM CDT BASIC METABOLIC PANEL (7) Routine 12/01/2019 9:59 AM CDT MAGNESIUM Routine 12/01/2019 9:59 AM CDT CBC W/PLT COUNT & AUTO Routine 12/01/2019 DIFFERENTIAL 9:59 AM CDT POCT-GLUCOSE METER Routine 12/01/2019 8:10 AM CDT POCT-GLUCOSE METER Routine 11/30/2019 9:53 PM CDT POCT-GLUCOSE METER Routine 11/30/2019 6:35 PM CDT POCT-GLUCOSE METER Routine 11/30/2019 2:06 PM CDT CBC W/PLT COUNT & AUTO Routine 11/30/2019 DIFFERENTIAL 7:25 AM CDT POCT-GLUCOSE METER Routine 11/30/2019 7:25 AM CDT HEPATIC FUNCTION PANEL Routine 11/30/2019 7:25 AM CDT BASIC METABOLIC PANEL (7) Routine 11/30/2019 7:25 AM CDT MAGNESIUM Routine 11/30/2019 7:25 AM CDT CBC W/PLT COUNT & AUTO Routine 11/30/2019 DIFFERENTIAL 7:25 AM CDT HEMOGLOBIN A1C Routine 11/30/2019 7:25 AM CDT POCT-GLUCOSE METER Routine 11/29/2019 9:49 PM CDT POCT-GLUCOSE METER Routine 11/29/2019 7:44 PM CDT POCT-GLUCOSE METER Routine 11/29/2019 6:35 PM CDT XR CHEST 1 VIEW STAT 11/29/2019 PORTABLE/BEDSIDE 10:34 AM CDT CBC W/PLT COUNT & AUTO STAT 11/29/2019 DIFFERENTIAL 10:26 AM CDT APTT STAT 11/29/2019 10:26 AM CDT PROTHROMBIN TIME/INR STAT 11/29/2019 10:26 AM CDT COMPREHENSIVE METABOLIC STAT 11/29/2019 PANEL 10:26 AM CDT LACTIC ACID, VENOUS STAT 11/29/2019 10:26 AM CDT CBC W/PLT COUNT & AUTO STAT 11/29/2019 DIFFERENTIAL 10:26 AM CDT BLOOD CULTURE STAT 11/29/2019 10:26 AM CDT BLOOD CULTURE STAT 11/29/2019 10:26 AM CDT WOUND CULTURE + GRAM STAT 11/29/2019 STAIN 10:25 AM CDT WOUND CULTURE + GRAM STAT 11/29/2019 STAIN 10:25 AM CDT US GUIDE, VASCULAR ACCESS Routine 11/29/2019 9:32 AM CDT INSERT NON-TUNNEL CV CATH Routine 11/29/2019 9:32 AM CDT after 05/21/2019 Results * RHYTHM STRIP - SCAN (05/01/2020 8:42 AM CDT) Narrative Performed At This result has an attachment that is n ot available. * POC-Glucose meter (04/25/2020 11:51 AM CDT) Only the most recent of 171 results within the time period is included. POC-Glucose Meter 198 (H)Comment: : TESTED AT 70 - 110 mg/dL [facility] [address] [place] [id number]: Robotics Technician/Jamb Cutter ID = [id number] for TAM GUPTA Specimen Blood Performing Organization Address City/State/Zipcode Ph one Number [address] [facility] * Manual Differential (04/25/2020 5:13 AM CDT) Only the most recent of 7 results within the time period is included. % Neutros 55 % [facility] % Lymphs 39 % [facility] % Monos 3 % [facility] % Eos 1 % [facility] % Baso 2 % [facility] # Neutros 4.73 1.78 - 5.38 K/ul [facility] # Lymphs 3.35 1.32 - 3.57 K/ul [facility] # Monos 0.26 (L) 0.30 - 0.82 K/uL [facility] # Eos 0.09 0.04 - 0.54 K/uL [facility] # Baso 0.17 (H) 0.01 - 0.08 K/uL [facility] Total Counted 100 [facility] WBC Morphology Normal [facility] Platelet Morphology Normal [facility] Polychromasia 1+ few [facility] Anisocytosis 1+ few [facility] Microcytes 1+ few [facility] Spherocytes 1+ few [facility] Artifact Present [facility] Platelet Conc Increased [facility] Specimen Blood Narrative Performed At Robotics Technician LISA - Susan Rojo [facility] User comments: [facility] Slide comments: Performing Organization Address City/[facility]/Zipcode Ph one Number [facility] [address] [place], [place] [address] [facility] * CBC with platelet count + automated diff (04/25/2020 5:13 AM CDT) Only the most recent of 19 results within the time period is included. WBC 8.6 3.5 - 10.5 K/L [facility] RBC 3.86 (L) 4.63 - 6.08 M/L [facility] Hemoglobin 8.9 (L) 13.7 - 17.5 GM/DL [facility] Hematocrit 30.4 (L) 40.1 - 51.0 % [facility] MCV 78.8 (L) 79.0 - 92.2 fL [facility] MCH 23.1 (L) 25.7 - 32.2 pg [facility] MCHC 29.3 (L) 32.3 - 36.5 GM/DL [facility] RDW 18.0 (H) 11.6 - 14.4 % [facility] Platelets 664 (H) 150 - 450 K/CU MM [facility] MPV 8.4 (L) 9.4 - 12.4 fL [facility] nRBC 0 0 - 0 /100 WBC [facility] Specimen Blood Performing Organization Address City/[facility] Ph one Number [address] [facility] * Magnesium (04/25/2020 5:13 AM CDT) Only the most recent of 9 results within the time period is included. Magnesium 2.0 1.6 - 2.6 mg/dL [facility] Specimen Blood Narrative Performed At Robotics Technician ID - [facility] Performing Organization Address [facility] one Number [address] [facility] * Hepatic function panel (04/25/2020 5:13 AM CDT) Only the most recent of 5 results within the time period is included. Protein, Total 8.0 6.0 - 8.3 gm/dL [facility] Albumin 3.5 3.5 - 5.0 g/dL [facility] Total Bilirubin 0.3 0.2 - 1.2 mg/dL [facility] Bilirubin, Direct 0.2 0.1 - 0.5 mg/dL [facility] Alkaline Phosphatase 291 (H) 40 - 150 U/L [facility] AST 18 5 - 34 U/L [facility] ALT 25 6 - 55 U/L [facility] Specimen Blood Narrative Performed At Robotics Technician ID - [facility] Performing Organization Address [facility] one Number [address] [facility] * Basic metabolic panel (04/25/2020 5:13 AM CDT) Only the most recent of 20 results within the time period is included. Sodium 136 136 - 145 meq/L [facility] Potassium 3.6 3.5 - 5.1 meq/L [facility] Chloride 104 98 - 107 meq/L [facility] CO2 24 22 - 29 meq/L [facility] BUN 6 (L) 7 - 21 mg/dL [facility] Creatinine 0.68 0.57 - 1.25 mg/dL [facility] Glucose 192 (H) 70 - 105 mg/dL [facility] Calcium 9.0 8.4 - 10.2 mg/dL [facility] EGFR 131Comment: ESTIMATED GFR IS mL/min/1.73 sq m [facility] NOT ACCURATE CREATININE [facility] CLEARANCE IN PREDICTING GLOMERULAR FILTRATION RATE. ESTIMATED GFR IS NOT APPLICABLE FOR DIALYSIS PATIENTS. Specimen Blood Narrative Performed At Robotics Technician ID - EDASI [facility] Performing Organization Address City/State/Zipcode Ph one Number [place] [address] [facility] * CT pelvis with IV contrast (04/24/2020 5:25 PM CDT) Specimen Narrative Performed At FINAL REPORT [employer] TECHNIQUE: CT of the pelvis WITH intrav enous contrast and WITHOUT oral contrast. Dose modulation, iterati ve reconstruction, and/or weight-based adjustment of the mA/kV wa s utilized to reduce the radiation dose to as low as reasonably achievable. INDICATION: Pelvic infection. COMPARISON: 07/31/2018. FINDINGS: PELVIC ORGANS/BLADDER: Nonspecific circ umferential wall thickening of the urinary bladder which may relate to incomplete distention. PERITONEUM/RETROPERITONEUM: Trace free pelvic fluid. No free intraperitoneal air.. LYMPH NODES: No lymphadenopathy. VESSELS: Unremarkable. GI TRACT: There is a left lower quadran t and colostomy. There is a blind-ending rectosigmoid stump. Bowel loops are normal in caliber without evidence of obstruction. The ap pendix is normal.. Appendix is normal. BONES AND SOFT TISSUES: Prominent bilat eral decubitus ulcers which extend to the level of the initial tube rosities there is increased sclerosis of the bilateral facial tuber osities with associated extensive heterotopic ossification. The re are lateral soft tissue defects overlying the bilateral femora with increase sclerosis of the greater trochanter with adjacent hetero topic ossification. Mild degenerative changes are noted in the b ilateral hips. No dislocation. IMPRESSION: Bilateral large decubitus ulcers extend ing to the initial tuberosities with findings suggestive o f chronic osteomyelitis of the bilateral ischial tuberosities. Large soft tissue defects over the bila teral proximal femora with findings suggestive of chronic osteomye litis in the regions of the greater trochanter. No focal fluid collection to suggest ab scess.. Signed: Conner Orr MD Report Verified Date/Time: 0 17:49:33 Reading Location: [address] Radiolo gy Reading Room Procedure Note Interface, External Ris In - 04/24/2020 5:51 PM CDT FINAL REPORT TECHNIQUE: CT of the pelvis WITH intravenous contrast and WITHOUT oral contrast. Dose modulation, iterative reconstruction, and/or weight-based adjustment of the mA/kV was utilized to reduce the radiation dose to as low as reasonably achievable. INDICATION: Pelvic infection. COMPARISON: 07/31/2018. FINDINGS: PELVIC ORGANS/BLADDER: Nonspecific circumferential wall thickening of the urinary bladder which may relate to incomplete distention. PERITONEUM/RETROPERITONEUM: Trace free pelvic fluid. No free intraperitoneal air.. LYMPH NODES: No lymphadenopathy. VESSELS: Unremarkable. GI TRACT: There is a left lower quadrant and colostomy. There is a blind-ending rectosigmoid stump. Bowel loops are normal in caliber without evidence of obstruction. The appendix is normal.. Appendix is normal. BONES AND SOFT TISSUES: Prominent bilateral decubitus ulcers which extend to the level of the initial tuberosities there is increased sclerosis of the bilateral facial tuberosities with associated extensive heterotopic ossification. There are lateral soft tissue defects overlying the bilateral femora with increase sclerosis of the greater trochanter with adjacent heterotopic ossification. Mild degenerative changes are noted in the bilateral hips. No dislocation. IMPRESSION: Bilateral large decubitus ulcers extending to the initial tuberosities with findings suggestive of chronic osteomyelitis of the bilateral ischial tuberosities. Large soft tissue defects over the bilateral proximal femora with findings suggestive of chronic osteomyelitis in the regions of the greater trochanter. No focal fluid collection to suggest abscess.. Signed: Conner Orr MD Report Verified Date/Time: 04/24/2020 17:49:33 Reading Location: [address] Radiology Reading Room Performing Organization Address [facility] Ph one Number GE RIS * Procalcitonin (04/23/2020 2:20 PM CDT) Procalcitonin 0.05 (H) <0.05 ng/mL [facility] Specimen Blood Narrative Performed At SEPSIS RISK (ng/mL) [facility] Low:0.05-0.50 [facility] Intermediate: 0.51-2.00 High: >=2.01 Performing Organization Address [facility] one [address] [phone] [place] [address] * Ferritin (04/23/2020 2:20 PM CDT) Ferritin 131.18 5.00 - 275.00 ng/mL [facility] Specimen Blood Narrative Performed At Robotics Technician ID - NTP [facility] Performing Organization Address [facility] one Number [address] 0 [phone] [place] [address] * Lactic acid, venous TIMED (04/23/2020 6:31 AM CDT) Only the most recent of 4 results within the time period is included. Lactate, Venous 1.03 0.50 - 2.20 mmol/L [facility] Specimen Blood Narrative Performed At Robotics Technician ID - NTP [facility] Performing Organization Address [facility] one [address] 0 [phone] [place] [address] * XR pelvis 1 or 2 views (04/23/2020 3:50 AM CDT) Specimen Narrative Performed At FINAL REPORT [facility] RAD, PELVIS, 1 OR 2 VIEWS CLINICAL HISTORY:FEVER decub ulcers TECHNIQUE: RAD, PELVIS, 1 OR 2 VIEWS COMPARISON: CT pelvis on 07/31/2018 IMPRESSION: Extensive heterotopic ossification over lies the inferior pubic rami which demonstrate diffuse sclerosis. Sc lerosis of the left proximal femur may alternatively represent super imposition artifact from heterotopic ossification. Lucency overl kassie the right hip and gluteal region concerning for subcutaneous gas/ abscesses or deep ulcerations. There is soft tissue irregularity iveth rning for decubitus ulcerations overlying the ischial tuber osities. No definite bone erosion but osteomyelitis may be radiog raphically occult and given extent of bony abnormalities, cannot be reliably excluded on the current exam. Correlation with CT pelvi s with IV contrast should be considered to exclude abscess formation and osseous erosion. No acute hip dislocation. Signed: Sony Grey MD Report Verified Date/Time: 0 03:59:07 Procedure Note Interface, External Ris In - 04/23/2020 4:01 AM CDT FINAL REPORT RAD, PELVIS, 1 OR 2 VIEWS CLINICAL HISTORY:FEVER decub ulcers TECHNIQUE: RAD, PELVIS, 1 OR 2 VIEWS COMPARISON: CT pelvis on 07/31/2018 IMPRESSION: Extensive heterotopic ossification overlies the inferior pubic rami which demonstrate diffuse sclerosis. Sclerosis of the left proximal femur may alternatively represent superimposition artifact from heterotopic ossification. Lucency overlying the right hip and gluteal region concerning for subcutaneous gas/abscesses or deep ulcerations. There is soft tissue irregularity concerning for decubitus ulcerations overlying the ischial tuberosities. No definite bone erosion but osteomyelitis may be radiographically occult and given extent of bony abnormalities, cannot be reliably excluded on the current exam. Correlation with CT pelvis with IV contrast should be considered to exclude abscess formation and osseous erosion. No acute hip dislocation. Signed: Sony Grey MD Report Verified Date/Time: 04/23/2020 03:59:07 Performing Organization Address City/State/Zipcode Ph one Number GE RIS * Urinalysis w/Microscopic + Reflex to Culture (04/23/2020 2:41 AM CDT) Only the most recent of 3 results within the time period is included. Color, UA Yellow [facility] Clarity, UA Clear [facility] Specific [place], UA 1.036 (H) 1.001 - 1.035 [facility] pH, UA 6.0 5.0 - 8.0 [facility] Protein, UA 100 mg/dL (A) Negative [facility] Glucose, UA 30 mg/dL (A) Negative [facility] Ketones, UA Negative Negative [facility] Bilirubin, UA Negative Negative [facility] Blood, UA Trace (A) Negative [facility] Nitrite, UA Negative Negative [facility] Leukocytes, UA Negative Negative [facility] Urobilinogen, UA 4.0 (H) 0.2 - 1.0 mg/dL [facility] RBC, UA 1 /HPF [facility] WBC, UA 5 /HPF [facility] Mucus Occasional [facility] Squam Epithel, UA 1 /HPF [facility] Specimen Source [facility] Specimen Urine Narrative Performed At Robotics Technician ID - [auto] [facility] Robotics Technician ID - [facility] Performing Organization Address City/State/Zipcode Ph one Number [facility] [address] [place], [place] [address] [facility] * ECG 12 lead (04/23/2020 2:39 AM CDT) Specimen Narrative Performed At Ventricular Rate 90 BPM GE MUSE Atrial Rate 90 BPM P-R Interval 140 ms QRS Duration 84 ms Q-T Interval 384 ms QTC Calculation(Bazett) 469 ms P Rarden 53 degrees R Rarden 18 degrees T Rarden 4 degrees Normal sinus rhythm Nonspecific ST and T wave abnormality Abnormal ECG No previous ECGs available Confirmed by Gerard MIGUEL MICHAEL (1 50) on 04/24/2020 6:46:01 AM Procedure Note Interface, External Ris In - 04/24/2020 6:46 AM CDT Ventricular Rate 90 BPM Atrial Rate 90 BPM P-R Interval 140 ms QRS Duration 84 ms Q-T Interval 384 ms QTC Calculation(Bazett) 469 ms P Rarden 53 degrees R Rarden 18 degrees T Rarden 4 degrees Normal sinus rhythm Nonspecific ST and T wave abnormality Abnormal ECG No previous ECGs available Confirmed by Gerard MIGUEL MICHAEL (150) on 04/24/2020 6:46:01 AM Performing Organization Address City/State/Zipcode Ph one Number GE MUSE * SARS-CoV2/RT-PCR (Symptomatic ONLY) (04/23/2020 2:11 AM CDT) Only the most recent of 2 results within the time period is included. SARS-COV2/RT-PCR Positive (AA) Not Detected, Negative, [facility] See external report for [facility] linked test SARS-COV-2 PERFORMING LAB [facility] Specimen Other Narrative Performed At Results are for the detection of SARS-C oV-2 RNA. The SARS-CoV-2 RNA is generally [facility] detectable in nasopharyngeal swab speci mens during the acute phase of infection. [facility] Positive results are indicative of acti ve infection with SARS-CoV-2; clinical correlation with patient history and ot her diagnostic information is necessary to determine patient infection status. Positive results do not rule out bacterial infection or co-infection wit h other viruses. The agent detected may not be the definite cause of disease. The limit of detection for this assay i s 250 copies/mL. This SARS CoV-2 test is a rapid, real-t cindy RT-PCR test intended for the qualitative detection of nucleic acid f rom SARS-CoV-2 in a nasopharyngeal swab specimen collected from individuals samy pected of COVID-19 by their healthcare provider. This test has not been Food and Drug Ad ministration (FDA) cleared or approved and has been authorized by FDA under an Emergency Use Authorization (EUA). This EUA will be effective until the declara tion that circumstances exist justifying the authorization of the emergency use of in vitro diagnostic tests for detection and/or diagnosis of COVID-19 is terminated under Section 564(b)(2) of the Act or the EUA is revoked under Sec tion 564(g) of the Act. Fact Sheet for Healthcare Providers: https://www.[employer]/Documents/Xpert%20Xpress%20SARS%20CoV-2/Fact%20Sheets/30 2-3802%11YRTY-JTR-0%20HEALTHCARE%20PROV IDERS%20FACT%20SHEET.pdf Fact Sheet for Healthcare Patients: https://www.[employer]/Documents/Xpert%20Xpress%20SARS%20CoV-2/Fact%20Sheets/30 2-3801%22AYRF-WOC-0%20PATIENT%20FACT%20 SHEET.pdf Performing Laboratory: [place] [address] Performing Organization Address [facility] Ph one Number [place] [address] [phone] [place] [address] * Blood Culture #1 (04/23/2020 2:02 AM CDT) Only the most recent of 8 results within the time period is included. Result No growth in 5 days [facility] Specimen Blood Performing Organization Address [facility] Ph one Number [place] [address] 0 [phone] [place] [address] * C-Reactive Protein (04/23/2020 1:56 AM CDT) Only the most recent of 2 results within the time period is included. CRP 21.99 (H) 0.00 - 0.50 mg/dL [facility] Specimen Blood Narrative Performed At Robotics Technician ID - ADENIKE Tubbs [facility] Performing Organization Address [facility] Ph one Number [place] [address] [facility] * aPTT (04/23/2020 1:56 AM CDT) Only the most recent of 2 results within the time period is included. PTT 40.7 (H) 22.5 - 36.0 seconds [facility] Specimen Blood Performing Organization Address [facility] Ph one Number [address] [facility] * Prothrombin time/INR (04/23/2020 1:56 AM CDT) Only the most recent of 2 results within the time period is included. Protime 15.1 (H) 11.9 - 14.2 seconds [facility] INR 1.2 <=5.9 [facility] Specimen Blood Narrative Performed At Effective 02/15/2019: PT Reference Range Change [facility] New: 11.9-14.2Previous: 11.7-14.7 [facility] CE NTER RECOMMENDED COUMADIN/WARFARIN INR THERA PY RANGES STANDARD DOSE: 2.0-3.0Includes: PRO PHYLAXIS for venous thrombosis, systemic embolization; TREATMENT for venous thro mbosis and/or pulmonary embolus. HIGH RISK: Target INR is 2.5-3.5 for pa tients wiht mechanical heart valves. Performing Organization Address [facility] one Number [address] [facility] * Phosphorus (04/23/2020 1:56 AM CDT) Phosphorus 3.2 2.3 - 4.7 mg/dL [facility] Specimen Blood Narrative Performed At Robotics Technician LISA Tubbs [facility] Performing Organization Address City/[facility] Ph one Number [address] [facility] * Lactate dehydrogenase (LDH) (04/23/2020 1:56 AM CDT) LDH 245 (H) 125 - 220 U/L [facility] Specimen Blood Narrative Performed At Robotics Technician ID - NTP [facility] Performing Organization Address City/State/Zipcode Ph one Number [facility] [address] [place], [place] [address] [facility]ENTER * Comprehensive metabolic panel (04/23/2020 1:56 AM CDT) Only the most recent of 2 results within the time period is included. Protein, Total 8.1 6.0 - 8.3 gm/dL [facility] Albumin 3.5 3.5 - 5.0 g/dL [facility] Alkaline Phosphatase 316 (H) 40 - 150 U/L [facility] Total Bilirubin 0.4 0.2 - 1.2 mg/dL [facility] Sodium 138 136 - 145 meq/L [facility] Potassium 3.7 3.5 - 5.1 meq/L [facility] Chloride 105 98 - 107 meq/L [facility] CO2 24 22 - 29 meq/L [facility] BUN 11 7 - 21 mg/dL [facility] Creatinine 0.80 0.57 - 1.25 mg/dL [facility] Glucose 257 (H) 70 - 105 mg/dL [facility] Calcium 9.0 8.4 - 10.2 mg/dL [facility] AST 32 5 - 34 U/L [facility] ALT 27 6 - 55 U/L [facility] EGFR 108Comment: ESTIMATED GFR IS mL/min/1.73 sq m [facility] NOT ACCURATE [facility] CLEARANCE IN PREDICTING GLOMERULAR FILTRATION RATE. ESTIMATED GFR IS NOT APPLICABLE FOR DIALYSIS PATIENTS. Specimen Blood Narrative Performed At Robotics Technician ID - ADENIKE Tubbs [facility] Performing Organization Address City/[facility] one Number [facility] [address] [place], [place] [address] [facility] * XR chest 1 view portable / bedside (04/23/2020 12:25 AM CDT) Only the most recent of 4 results within the time period is included. Specimen Narrative Performed At FINAL REPORT GE RIS RAD, CHEST, 1 VIEW, NON DEPT CLINICAL HISTORY: FEVER TECHNIQUE: Single view of the chest. COMPARISON: January 19, 2020 IMPRESSION: Stable elevated right hemidiaphragm. Th e right costophrenic angle blunting suggests stable small right pl eural effusion. There are stable reticulations within the right l marine likely bronchovascular crowding, atelectasis versus asymmetric edema. No new lung consolidation. No pneumothorax. Left mariano ng is well aerated. Cardiomediastinal silhouette is stable. In summary, examination is not signific ant change compared to January 19, 2020. Signed: Sony Grey MD Report Verified Date/Time: 0 00:37:09 Procedure Note Interface, External Ris In - 04/23/2020 12:39 AM CDT FINAL REPORT RAD, CHEST, 1 VIEW, NON DEPT CLINICAL HISTORY: FEVER TECHNIQUE: Single view of the chest. COMPARISON: January 19, 2020 IMPRESSION: Stable elevated right hemidiaphragm. The right costophrenic angle blunting suggests stable small right pleural effusion. There are stable reticulations within the right lung likely bronchovascular crowding, atelectasis versus asymmetric edema. No new lung consolidation. No pneumothorax. Left lung is well aerated. Cardiomediastinal silhouette is stable. In summary, examination is not significant change compared to January 19, 2020. Signed: Sony Grey MD Report Verified Date/Time: 04/23/2020 00:37:09 Performing Organization Address City/[facility] one Number GE RIS * ECG/EKG Interpretation (04/22/2020 11:44 PM CDT) Narrative Performed At Hossein Verdin MD 04/29/2020 12 :58 AM ECG/EKG Interpretation Date/Time: 04/23/2020 2:42 AM Performed by: Hossein Verdin MD Authorized by: Felecia Ge MD The ECG was interpreted by ED physician . The ECG is interpreted as sinus rhythm. Rate is normal rate. Conduction : conduction normal. ST segments normal. T waves normal. Rarden is normal. Other findings: no other findings. Righ t sided lead use: right-sided leads not used. Left sided lead use: Posterior leads we re not used. Clinical Impression: normal ECGECG reviewed and does not jatin t STEMI criteria. * Surgically obtained culture + gram stain (01/23/2020 12:42 PM CDT) Only the most recent of 2 results within the time period is included. Result 2+ Same organism has been [facility] isolated from cultures(s) of [facility] the same body site and collection date. Repeat identification and susceptibility testing performed only after consultation with the clinical microbiology laboratory. (A) Comment: Refer to previous culture of Methicillin resistant Staphylococcus aureus Result <1+ Same organism has been [facility] isolated from cultures(s) of [facility] the same body site and collection date. Repeat identification and susceptibility testing performed only after consultation with the clinical microbiology laboratory. (A) Comment: Refer to previous culture of Acinetobacter baumannii Gram Stain Result <1+ W[facility]s [facility] Gram Stain Result No organisms seen [facility] Specimen Wound Performing Organization Address City/[facility] Ph one Number [facility] [place] [address] [facility] * AFB culture + smear (non-sputum) (01/23/2020 11:20 AM CDT) Result No acid-fast bacilli isolated [facility] in 42 days [facility] AFB Smear No acid fast bacilli seen [facility] Specimen Wound Performing Organization Address City/[facility] one Number [facility] [address] [place], [place] [address] [facility] * Anaerobic culture (01/23/2020 11:20 AM CDT) Result No anaerobes isolated [facility] Specimen Wound Performing Organization Address [facility] one Number [facility] [address] [place], [place] [address] [facility] * Fungus culture + smear (01/23/2020 11:20 AM CDT) Result No fungus isolated in 28 days [facility] Fungus Smear No fungi seen [facility] Specimen Wound Performing Organization Address [facility] one Number [address] [address] [facility] * Wound culture + gram stain (01/20/2020 3:27 PM CDT) Only the most recent of 5 results within the time period is included. Result 4+ Methicillin resistant [facility] Staphylococcus aureus (A) [facility] Gram Stain Result 1+ WBCs [facility] Gram Stain Result 1+ gram positive rods [facility] Gram Stain Result 4+ gram positive cocci in [facility] Gram Stain Result 1+ gram positive cocci in [facility] Specimen Wound Antibiotic Method Susceptibility Organism Clindamycin 0.25: Susceptible Methicillin resistant Staphylococcus aureus Erythromycin >=8: Resistant Methicillin resistant Staphylococcus aureus Linezolid 2: Susceptible Methicillin resistant Staphylococcus aureus Oxacillin >=4: Resistant Methicillin resistant Staphylococcus aureus Rifampin <=0.5: Susceptible Methicillin resistant Staphylococcus aureus Tetracycline <=1: Susceptible Methicillin resistant Staphylococcus aureus Trimethoprim + Sulfamethoxazole <=10: Susceptible Methicillin resistant Staphylococcus aureus Vancomycin 1: Susceptible Methicillin resistant Staphylococcus aureus Performing Organization Address [facility] one Number [facility] [address] [place], [place] [address] [facility] * Hemoglobin A1c (01/20/2020 4:21 AM CDT) Only the most recent of 2 results within the time period is included. Hemoglobin A1C 8.0 (H) 4.3 - 6.1 % [facility] Specimen Blood Performing Organization Address City/State/Zipcode Ph one Number [facility] [address] [place], [place] [address] [facility] * Blood Culture Panel(BioFire) (01/19/2020 3:21 PM CDT) LISTERIA MONOCYTOGENES Not detected Not detected [facility] STAPHYLOCOCCUS Detected (A) Not detected [facility] Comment: [facility] Coagulase negative Staph species (CoNS)- methicillin susceptible First-line therapy: Cefazolin or Oxacillin (Oxacillin preferred if [employer]OUTE [employer] involvement) MecA NOT DETECTED Possible contamination. The likelihood of pathogenicity is increased if the organism is observed in multiple blood cultures obtained from separate venipunctures. Reference Range: Not Detected STAPHYLOCOCCUS AUREUS Not detected Not detected [facility] Streptococcus Not detected Not detected [facility] STREPTOCOCCUS AGALACTIAE Not detected Not detected [facility] ([facility]) [facility] STREPTOCOCCUS PNEUMONIAE Not detected Not detected [facility] Streptococcus pyogenes Not detected Not detected [facility] (Group A) [facility] ACINETOBACTER BAUMANNII Not detected Not detected [facility] HAEMOPHILUS INFLUENZAE Not detected Not detected [facility] NEISSERIA MENINGITIDIS Not detected Not detected [facility] ENTEROBACTERIACEAE Not detected Not detected [facility] ENTEROBACTER CLOACOE Not detected Not detected [facility] KLEBSIELLA OXYTOCA Not detected Not detected [facility] KLEBSIELLA PNEUMONIAE Not detected Not detected [facility] PROTEUS Not detected Not detected [facility] SERRATIA MARCESCENS Not detected Not detected [facility] DIA ALBICANS Not detected Not detected [facility] DIA GLABRATA Not detected Not detected [facility] DIA KRUSEI Not detected Not detected [facility] DIA PARAPSILOSIS Not detected Not detected [facility] DIA TROPICALIS Not detected Not detected [facility] ESCHERICHIA COLI Not detected Not detected [facility] METHICILLIN-RESISTANCE Not detected Not detected [facility] VANCOMYCIN-RESISTANCE [facility] CARBAPENEM-RESISTANCE [facility] ENTEROCOCCUS Not detected Not detected [facility] PSEUDOMONAS AERUGINOSA Not detected Not detected [facility] Specimen Blood Narrative Performed At Other bacteria and resistance markers not targeted by this PCR panel cannot be [facility] excluded; therefore clinical correlation and follow u p of serology, culture [facility] results, and other molecular studies is required. The results are not intended to be used as the sole means for clinic al diagnosis or patient management decisions. This sample was tested at e [facility] using the FitStar Blood Cultu re ID Panel. It is FDA cleared and has been verified and approved by the [facility] for clinical use. This laboratory is CLIA-c ertified and [employer] [place] [employer] ([employer])-accredited to [facility] m high complexity testing. Performing Organization Address [facility] Ph one Number [facility] [address] [place], [place] [address] [facility] * Urine culture (01/19/2020 1:29 PM CDT) Result >100,000 col/mL Dia [facility] glabrata (A) [facility] Result <10,000 col/mL Staphylococcus [facility] haemolyticus (A) [facility] Result <10,000 col/mL Staphylococcus [facility] epidermidis (A) [facility] Specimen Urine - Urine, Straight Catheter Performing Organization Address [facility] one Number [address] [facility] * Blood gas, venous (01/19/2020 1:11 PM CDT) pH, Marcos 7.41 7.32 - 7.42 [facility] pCO2, Marcos 48 41 - 51 mmHg [facility] pO2, Marcos 50 (H) 25 - 40 mmHg [facility] O2 Sat, Marcos 82.8 (H) 40.0 - 70.0 % [facility] HCO3, Marcos 30 (H) 21 - 29 mmol/L [facility] Base Excess, Marcos 4.8 (H) -2.0 - 3.0 mmol/L [facility] Patient Temperature 38.3 C [facility] FIO2 21.0 % [facility] Specimen Blood Performing Organization Address [facility] one [place] [id number] [phone] [place] [address] * Ketones, blood (01/19/2020 1:10 PM CDT) Ketones, Blood 0.0 <0.4 mmol/L [facility] Specimen Blood Performing Organization Address City/[facility] one Number [place] [address] [facility] * Vancomycin level, trough (12/28/2019 9:26 PM CDT) Only the most recent of 7 results within the time period is included. Vancomycin Tr 15.4 10.0 - 20.0 ug/mL [facility] Specimen Blood Narrative Performed At Robotics Technician ID - BS [facility] Performing Organization Address [facility] one [facility] [address] [place], [place] [address] [facility] * CBC (Hemogram only) (12/22/2019 2:55 PM CDT) Only the most recent of 2 results within the time period is included. WBC 12.1 (H) 3.5 - 10.5 K/L [facility] RBC 4.04 (L) 4.63 - 6.08 M/L [facility] Hemoglobin 10.1 (L) 13.7 - 17.5 GM/DL [facility] Hematocrit 32.9 (L) 40.1 - 51.0 % [facility] MCV 81.4 79.0 - 92.2 fL [facility] MCH 25.0 (L) 25.7 - 32.2 pg [facility] MCHC 30.7 (L) 32.3 - 36.5 GM/DL [facility] RDW 19.9 (H) 11.6 - 14.4 % [facility] Platelets 576 (H) 150 - 450 K/CU MM [facility] MPV 8.2 (L) 9.4 - 12.4 fL [facility] nRBC 0 0 - 0 /100 WBC [facility] Specimen Blood Performing Organization Address City/State/Zipcode Ph one Number [facility] [address] [place], [place] [address] [facility] * BUN and Creatinine (12/18/2019 1:22 PM CDT) BUN 21 7 - 21 mg/dL [facility] Creatinine 0.48 (L) 0.57 - 1.25 mg/dL [facility] BUN/Creatinine Ratio 43.7500Comment: For a normal [facility] individual on a normal diet, [facility] the reference interval for the mass ratio ranges between 12:1 and 20:1 (BUN in mg/dL/creatinine in mg/dL) EGFR 195Comment: ESTIMATED GFR IS mL/min/1.[address] [facility] NOT ACCURATE [facility] CLEARANCE IN PREDICTING GLOMERULAR FILTRATION RATE. ESTIMATED GFR IS NOT APPLICABLE FOR DIALYSIS PATIENTS. Specimen Blood Narrative Performed At Robotics Technician ID - FLOR M [facility] Performing Organization Address [facility] one [place] [address] [place] [address] * TSH/Free T4 If Indicated (12/01/2019 9:59 AM CDT) TSH 2.67 0.35 - 4.94 uIU/mL [facility] Specimen Blood Narrative Performed At Robotics Technician ID - [facility] Performing Organization Address [facility] one [place] [address] [place] [address] * Prealbumin (12/01/2019 9:59 AM CDT) Prealbumin 7 (L) 14 - 45 mg/dL [facility] Specimen Blood Narrative Performed At Robotics Technician ID - [facility] Performing Organization Address [facility] one [place] [address] [place] [address] * Central Line (11/29/2019 9:32 AM CDT) Narrative Performed At Asa Steele MD 11/29/2019 12:37 PM Central Line Date/Time: 11/29/2019 10:22 AM Performed by: Asa Steele MD Authorized by: Asa Steele MD Consent: Verbal consent obtained. Risks and benefits: risks, benefits and alternatives were discussed Consent given by: patient Patient identity confirmed: verbally wi th patient Indications: vascular access Anesthesia: local infiltration Preparation: skin prepped with ChloraPr ep Skin prep agent dried: skin prep agent completely dried prior to procedure Sterile barriers: all five maximum ster ile barriers used - cap, mask, sterile gown, sterile gloves, and large sterile sheet Hand hygiene: hand hygiene performed pr ior to central venous catheter insertion Location details: right internal jugula r Patient position: flat Catheter type: triple lumen Catheter size: 7.5 Fr Pre-procedure: landmarks identified Ultrasound guidance: yes Sterile ultrasound techniques: sterile gel and sterile probe covers were used Number of attempts: 1 Successful placement: yes Post-procedure: line sutured Immediate Post-Procedure Note Assistants to the procedure: None Pre-procedure diagnosis: SEPSIS Post-procedure diagnosis: SEPSIS Procedures Performed: Central Line Specimens removed: None Estimated blood loss (mL): None Complications: None Type of anesthesia: None Grafts or Implants: None after 05/21/2019 Insurance Payer Benefit Subscriber ID Type Phone Address Plan / Group [employer] MEDICAID MEDICAID xxxxxxxxx DESIR CDC REVIEW CDC REVIEW xxxxx[place] [address] [place] [place] [phone] Advance Directives For more information, please contact: [facility] [address] [place] [address] Date Inactivated Comments Code Status Date Activated 04/25/2020 6:40 PM Full Code 04/22/2020 11:46 PM This code status was determined by: Patient 01/03/2020 4:41 PM Full Code 11/29/2019 9:32 AM This code status was determined by: Patient 11/29/2019 9:09 AM Full Code 09/18/2018 2:09 AM This code status was determined by: Patient 08/31/2018 10:28 AM Full Code 07/30/2018 4:19 AM This code status was determined by: Patient
--- OUTSIDE RECORDS SUMMARY | 2020-05-21 22:45 | XMS REPORT | Continuity of Care Document ---
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 2019-12-20 12:06:00 Gadicherla, Alida Muralin [facility] POCT-GLUCOSE METER 2019-12-20 08:04:00 Gadicherla, Alida Muralin [facility] POCT-GLUCOSE METER 2019-12-19 22:37:00 Gadicherla, Alida Muralin [facility] POCT-GLUCOSE METER 2019-12-19 18:04:00 Gadicherla, Alida Muralin [facility] POCT-GLUCOSE METER 2019-12-19 12:54:00 Gadicherla, Alida Muralin [facility] POCT-GLUCOSE METER 2019-12-19 07:40:00 Gadicherla, Alida Muralin [facility] VANCOMYCIN LEVEL, TROUGH 2019-12-19 04:24:00 Sawyer [facility] CBC (HEMOGRAM ONLY) 2019-12-19 04:24:00 Sawyer [facility] BASIC METABOLIC PANEL (7) 2019-12-19 04:24:00 Kirill Jacques [facility] POCT-GLUCOSE METER 2019-12-18 21:46:00 Gadicherla, Alida Muralin [facility] POCT-GLUCOSE METER 2019-12-18 18:18:00 Gadicherla, Alida Muralin [facility] BUN AND CREATININE W/RATIO 2019-12-18 13:22:00 Dieter Lipscomb [facility] POCT-GLUCOSE METER 2019-12-18 11:39:00 Gadicherla, Alida Muralin [facility] POCT-GLUCOSE METER 2019-12-18 07:46:00 Gadicherla, Alida Muralin [facility] POCT-GLUCOSE METER 2019-12-18 02:15:00 Gadicherla, [facility] POCT-GLUCOSE METER 2019-12-17 20:57:00 Gadicherla, Alida [facility] POCT-GLUCOSE METER 2019-12-17 17:19:00 Gadicherla, Alida [facility] VANCOMYCIN LEVEL, TROUGH 2019-12-17 13:54:00 Tamiko Larson [facility] POCT-GLUCOSE METER 2019-12-17 13:05:00 Gadicherla, Alida Muralin [facility] POCT-GLUCOSE METER 2019-12-17 12:16:00 Gadicherla, Al[facility] POCT-GLUCOSE METER 2019-12-17 07:39:00 Gadicherla, Alida [facility] POCT-GLUCOSE METER 2019-12-16 21:13:00 Gadicherla, Alida [facility] POCT-GLUCOSE METER 2019-12-16 17:37:00 Gadicherla, Alida [facility] POCT-GLUCOSE METER 2019-12-16 11:52:00 Gadicherla, Alida [facility] POCT-GLUCOSE METER 2019-12-16 07:54:00 Gadicherla, Alida [facility] POCT-GLUCOSE METER 2019-12-15 22:47:00 Gadicherla, Alida [facility] POCT-GLUCOSE METER 2019-12-15 20:39:00 Gadicherla, Alida [facility] POCT-GLUCOSE METER 2019-12-15 18:00:00 Gadicherla, Alida [facility] POCT-GLUCOSE METER 2019-12-15 11:35:00 Gadicherla, Alida [facility] POCT-GLUCOSE METER 2019-12-15 07:37:00 Gadicherla, Alida [facility] POCT-GLUCOSE METER 2019-12-14 20:34:00 Gadicherla, Alida [facility] POCT-GLUCOSE METER 2019-12-14 16:05:00 Gadicherla, Alida [facility] POCT-GLUCOSE METER 2019-12-14 12:15:00 Gadicherla, Alida [facility] POCT-GLUCOSE METER 2019-12-14 08:07:00 Gadicherla, Alida [facility] POCT-GLUCOSE METER 2019-12-13 20:57:00 Gadicherla, Alida Muralin [facility] POCT-GLUCOSE METER 2019-12-13 18:46:00 Gadicherla, Alida Muralin [facility] POCT-GLUCOSE METER 2019-12-13 12:54:00 Gadicherla, Alida Muralin [facility] POCT-GLUCOSE METER 2019-12-13 07:20:00 Gadicherla, Alida Muralin [facility] CBC W/PLT COUNT & AUTO DIFFERENTIAL 2019-12-13 03:30:00 Tamiko Larson [facility] (CELLAVISION MANUAL DIFF) 2019-12-13 03:30:00 Tamiko Larson [facility] POCT-GLUCOSE METER 2019-12-12 21:19:00 Gadicherla, Alida Muralin [facility] POCT-GLUCOSE METER 2019-12-12 19:51:00 Gadicherla, Alida Muralin [facility] POCT-GLUCOSE METER 2019-12-12 11:44:00 Gadicherla, Alida Muralin [facility] POCT-GLUCOSE METER 2019-12-12 07:41:00 Gadicherla, Alida Muralin [facility] POCT-GLUCOSE METER 2019-12-11 21:02:00 Gadicherla, Alida Muralin [facility] POCT-GLUCOSE METER 2019-12-11 17:34:00 Gadicherla, Alida Muralin [facility] URINALYSIS W/ REFLEX URINE CULTURE 2019-12-11 14:37:00 Neo Tamiko [facility] POCT-GLUCOSE METER 2019-12-11 12:30:00 Gadichervickie, [facility]ida [facility] POCT-GLUCOSE METER 2019-12-11 07:56:00 Gadicherla, Alida [facility] BASIC METABOLIC PANEL (7) 2019-12-11 06:11:00 Devin Box [facility] CBC W/PLT COUNT & AUTO DIFFERENTIAL 2019-12-11 06:11:00 Devin Box [facility] POCT-GLUCOSE METER 2019-12-10 22:02:00 Devin Box [facility] POCT-GLUCOSE METER 2019-12-10 17:47:00 Devin Box [facility] POCT-GLUCOSE METER 2019-12-10 12:36:00 Devin Box [facility] POCT-GLUCOSE METER 2019-12-10 07:46:00 Devin Box [facility] POCT-GLUCOSE METER 2019-12-09 17:29:00 Devin Box [facility] POCT-GLUCOSE METER 2019-12-09 12:01:00 Devin Box [facility] POCT-GLUCOSE METER 2019-12-09 07:48:00 Devin Box [facility] POCT-GLUCOSE METER 2019-12-08 22:39:00 Devin Box [facility] POCT-GLUCOSE METER 2019-12-08 17:47:00 Devin Box [facility] POCT-GLUCOSE METER 2019-12-08 13:33:00 Devin Box [facility] POCT-GLUCOSE METER 2019-12-08 07:28:00 Devin Box [facility] POCT-GLUCOSE METER 2019-12-07 21:51:00 Devin Box [facility] POCT-GLUCOSE METER 2019-12-07 18:32:00 Devin Box [facility] POCT-GLUCOSE METER 2019-12-07 13:03:00 Devin Box [facility] POCT-GLUCOSE METER 2019-12-07 07:39:00 Devin Box [facility] POCT-GLUCOSE METER 2019-12-06 21:34:00 Devin Box [facility] POCT-GLUCOSE METER 2019-12-06 18:34:00 Devin Box [facility] POCT-GLUCOSE METER 2019-12-06 12:35:00 Devin Box [facility] POCT-GLUCOSE METER 2019-12-06 09:51:00 Devin Box [facility] POCT-GLUCOSE METER 2019-12-06 08:21:00 Devin Box [facility] POCT-GLUCOSE METER 2019-12-05 21:38:00 Devin Box [facility] POCT-GLUCOSE METER 2019-12-05 17:00:00 Devin Box [facility] POCT-GLUCOSE METER 2019-12-05 10:18:00 Devin Box [facility] POCT-GLUCOSE METER 2019-12-05 07:33:00 Devin Box [facility] MAGNESIUM 2019-12-05 03:04:00 Mitra Randall [facility] BASIC METABOLIC PANEL (7) 2019-12-05 03:04:00 Prakash [facility] CBC W/PLT COUNT & AUTO DIFFERENTIAL 2019-12-05 03:04:00 Mirna Randall [facility] (CELLAVISION MANUAL DIFF) 2019-12-05 03:04:00 [facility] PO[facility]-GLUCOSE METER 2019-12-04 22:42:00 Devin Box [facility] POCT-GLUCOSE METER 2019-12-04 22:00:00 Devin Box [facility] POCT-GLUCOSE METER 2019-12-04 17:24:00 Devin Box [facility] POCT-GLUCOSE METER 2019-12-04 11:01:00 Devin Box [facility] POCT-GLUCOSE METER 2019-12-04 07:52:00 Devin Box [facility] MAGNESIUM 2019-12-04 04:19:00 [facility] BASIC METABOLIC PANEL (7) 2019-12-04 04:19:00 [facility] HEPATIC FUNCTION PANEL 2019-12-04 04:19:00 [facility], [facility], [facility] CBC W/PLT COUNT & AUTO DIFFERENTIAL 2019-12-04 04:19:00 [facility], [facility] R [facility] (CELLAVISION MANUAL DIFF) 2019-12-04 04:19:00 [facility], [facility], [facility] POCT-GLUCOSE METER 2019-12-03 21:49:00 [facility] POCT-GLUCOSE METER 2019-12-03 18:17:00 [facility] POCT-GLUCOSE METER 2019-12-03 12:23:00 [facility] XR CHEST 1 VIEW PORTABLE/BEDSIDE 2019-12-03 10:52:00 Florinda Larson [facility] VANCOMYCIN LEVEL, TROUGH 2019-12-03 08:24:00 Tamiko Larson [facility] POCT-GLUCOSE METER 2019-12-03 07:51:00 [facility], [facility], [facility] MAGNESIUM 2019-12-03 06:01:00 [facility], [facility], [facility] BASIC METABOLIC PANEL (7) 2019-12-03 06:01:00 Nalam, [facility] CBC W/PLT COUNT & AUTO DIFFERENTIAL 2019-12-03 06:01:00 Nalam, [facility] PO[facility]-GLUCOSE METER 2019-12-02 23:26:00 [facility] POCT-GLUCOSE METER 2019-12-02 17:45:00 Nalam, [facility] POCT-GLUCOSE METER 2019-12-02 12:44:00 Nalam, [facility] POCT-GLUCOSE METER 2019-12-02 08:04:00 [facility], [facility], [facility] MAGNESIUM 2019-12-02 06:25:00 [facility] BASIC METABOLIC PANEL (7) 2019-12-02 06:25:00 [facility], [facility], [facility] CBC W/PLT COUNT & AUTO DIFFERENTIAL 2019-12-02 06:25:00 [facility], [facility], [facility] (CELLAVISION MANUAL DIFF) 2019-12-02 06:25:00 [facility] POCT-GLUCOSE METER 2019-12-01 20:42:00 [facility] POCT-GLUCOSE METER 2019-12-01 17:27:00 [facility], [facility], [facility] POCT-GLUCOSE METER 2019-12-01 12:19:00 [facility] MAGNESIUM 2019-12-01 09:59:00 [facility] BASIC METABOLIC PANEL (7) 2019-12-01 09:59:00 [facility] PREALBUMIN 2019-12-01 09:59:00 [facility] C-REACTIVE PROTEIN 2019-12-01 09:59:00 [facility] TSH/FREE T4 IF INDICATED 2019-12-01 09:59:00 Sofya Winston [facility] CBC W/PLT COUNT & AUTO DIFFERENTIAL 2019-12-01 09:59:00 Nalguzman, [facility]CELLAVISION MANUAL DIFF) 2019-12-01 09:59:00 [facility], [facility], [facility] POCT-GLUCOSE METER 2019-12-01 08:10:00 Nalam, [facility] POCT-GLUCOSE METER 2019-11-30 21:53:00 Nalam, [facility] POCT-GLUCOSE METER 2019-11-30 18:35:00 Nalam, [facility] POCT-GLUCOSE METER 2019-11-30 14:06:00 [facility], [facility], [facility] HEMOGLOBIN A1C 2019-11-30 07:25:00 [facility], [facility], [facility] MAGNESIUM 2019-11-30 07:25:00 [facility], [facility], [facility] BASIC METABOLIC PANEL (7) 2019-11-30 07:25:00 [facility], [facility], [facility] HEPATIC FUNCTION PANEL 2019-11-30 07:25:00 [facility], [facility], [facility] POCT-GLUCOSE METER 2019-11-30 07:25:00 [facility], [facility], [facility] CBC W/PLT COUNT & AUTO DIFFERENTIAL 2019-11-30 07:25:00 Nalam, Mirna [facility] POCT-GLUCOSE METER 2019-11-29 21:49:00 [facility] POCT-GLUCOSE METER 2019-11-29 19:44:00 Ivette Asa [facility] POCT-GLUCOSE METER 2019-11-29 18:35:00 Ivette [facility] XR CHEST 1 VIEW PORTABLE/BEDSIDE 2019-11-29 10:34:00 Annemarie [facility]inas [facility] BLOOD CULTURE 2019-11-29 10:26:00 Asa Salinas [facility] LACTIC ACID, VENOUS 2019-11-29 10:26:00 Ivette [facility] COMPREHENSIVE METABOLIC PANEL 2019-11-29 10:26:00 Asa Salinas [facility] PROTHROMBIN TIME/INR 2019-11-29 10:26:00 Asa Salinas [facility] APTT 2019-11-29 10:26:00 Asa Salinas [facility] CBC W/PLT COUNT & AUTO DIFFERENTIAL 2019-11-29 10:26:00 Coleman Salinas [facility] WOUND CULTURE + GRAM STAIN 2019-11-29 10:25:00 Ivette [facility] US GUIDE, VASCULAR ACCESS 2019-11-29 09:32:38 Ivette [facility] Encounters Start Date/Time End Date/Time Encounter Type Admission Type Attendi [facility] Care Department Encounter ID Source 2019-11-10 21:02:00 2019-11-16 21:57:00 Discharged Inpatient 1 JANAK QURESHI [facility] [id number] [facility] 2017-06-04 12:36:00 2017-06-04 12:36:00 Emergency E [facility] MED [id number] [facility] Results Test Description Test Time Test Comments Results Result Comments Source US EXREMEITY VEINS UNI-HOPD 2020-05-21 21:55:00 [place] [address] Patient Name: JADE LANGE II MR #: [id number] : 1980 Age/Sex: 39/M Req #: [id number] Adm Physician: Ordered by: MARIA G DASILVA MD Report #: [id number] Location: [facility] Room/Bed: Procedure: HOPD/US EXREMEITY VEINS UNI-HOPD Exam Date: 05/21/20 Exam Time: 2120 REPORT STATUS: Signed EXAM: Right Lower Extremity Venous Duplex Ultrasound INDICATION: swelling 20200521 COMPARISON: None TECHNIQUE: Velazco scale, color Doppler and spectral waveform analysis of the right lower extremity deep venous system was performed. FINDINGS: Very limited study. Common Femoral: Fully compressible with normal spontaneous waveforms. Proximal Greater Saphenous: Fully compressible. Femoral: Fully compressible with normal spontaneous waveforms. Normal response to augmentation. Proximal Deep Femoral: Normal spontaneous waveforms. Popliteal: Fully compressible with normal spontaneous waveforms. IMPRESSION: No definite evidence of deep venous thrombosis above the right calf. Signed by: Dr. Agusto Messina MD on 05/21/2020 9:58 PM Dictated By: AGUSTO MESSINA MD 57 Transcribed By: WU on 05/21/202157 COPY TO: MARIA G DASILVA MD TIB/FIB 2VW RT - HOPD 2020-05-21 21:51:00 [place] [address] Patient Name: JADE LANGE II MR #: [id number] : 1980 Age/Sex: 39/M Req #: [id number] Adm Physician: Ordered by: MARIA G DASILVA MD Report #: [id number] Location: [facility] Room/Bed: Procedure: HOPD/TIB/FIB 2VW RT - HOPD Exam Date: 05/21/20 Exam Time: 2037 REPORT STATUS: Signed TIB/FIB 2VW RT - HOPD - 5 views HISTORY: Pain COMPARISON: None available. IMPRESSION: No evidence of acute displaced fracture or dislocation. Old fracture deformities of mid to distal tibia. There is also a subtle lucent line and mild deformity of distal fibula, probably also an old fracture deformity. However, acute nondisplaced fibular fracture line in this area cannot be entirely excluded. Signed by: Dr. gAusto Messina MD on 05/21/2020 9:55 PM Dictated By: AGUSTO MESSINA MD 54 Transcribed By: WU on 05/21/202154 COPY TO: MARIA G DASILVA MD FOOT 3 VIEW RT - HOPD 2020-05-21 21:48:00 [place] [address] Patient Name: JADE LANGE II MR #: [id number] : 1980 Age/Sex: 39/M Req #: [id number] [facility] Physician: Ordered by: MARIA G DASILVA MD Report #: [id number] Location: [facility] Room/Bed: Procedure: HOPD/FOOT 3 VIEW RT - HOPD Exam Date: 05/21/20 Exam Time: 2037 REPORT STATUS: Signed FOOT 3 VIEW RT - HOPD - 3 views HISTORY: Pain COMPARISON: None available. IMPRESSION: Generalized mineralization limits evaluation. No definite evidence of acute displaced fracture or dislocation of the right foot. Mild diffuse soft tissue swelling. Scattered degenerative changes. Signed by: Dr. Agusto Messina MD on 05/21/2020 9:51 PM Dictated By: AGUSTO MESSINA MD 50 Transcribed By: WU on 05/21/202150 COPY TO: MARIA G DASILVA MD FEMUR 2 VIEW RT - HOPD 2020-05-21 21:34:00 [place] [address] Patient Name: JADE LANGE II MR #: [id number] : 1980 Age/Sex: 39/M Req #: [id number] Adm Physician: Ordered by: MARIA G DASILVA MD Report #: [id number] Location: [facility] Room/Bed: Procedure: [id number] HOPD/FEMUR 2 VIEW RT - HOPD Exam Date: 05/21/20 Exam Time: 2037 REPORT STATUS: Signed FEMUR 2 VIEW RT - HOPD - 5 views HISTORY: Pain COMPARISON: 11/10/2019 IMPRESSION: Heterotopic ossification adjacent to the greater trochanter and right inferior pubic ramus. No definite evidence of acute displaced fracture or dislocation of the right femur. Degenerative changes of right hip and knee joints. Signed by: Dr. Agusto Messina MD on 05/21/2020 9:48 PM Dictated By: AGUSTO MESSINA MD 47 Transcribed By: WU on 05/21/202147 COPY TO: MARIA G DASILVA MD Blood Culture #1 2020-04-28 04:00:00 Test Item Result (test code = 6463-4) No growth in 5 days [facility] [id number] 04:00:00* Test Item Value Reference Range Interpretation Comments CULTURE (BEAKER) (test code = 1095) No growth in 5 days BLOOD [id number] 04:00:00* Test Item Value Reference Range Interpretation Comments CULTURE (BEAKER) (test code = 1095) No growth in 5 days POC-Glucose [id number] 12:02:00* Test Item Value Reference Range Interpretation Comments POC-Glucose Meter (test code = 1538) 198 mg/dL 70-110 H : TESTED AT [facility] [address], [address]: Systems Project Manager/Purchase Price Analyst ID = [id number] for ALONSO PATITO Lab Interpretation (test code = 14928-8) Abnormal [facility] [id number] 12:02:00* Test Item Value Reference Range Interpretation Comments POC-GLUCOSE METER (BEAKER) (test code = 1538) 198 mg/dL 70-110 H : TESTED AT [place] [id number] [facility], [address]: Systems Project Manager/Purchase Price Analyst ID = [id number] for PATITO GUPTA CBC with platelet count + automated [id number] 11:39:00* Test Item Value Reference Range Interpretation Comments WBC (test code = 6690-2) 8.6 3.5- 10.5 K/L RBC (test code = 789-8) 3.86 4.63- 6.08 M/L L MCHC (test code = 786-4) 29.3 32.3- 36.5 GM/DL L Hematocrit (test code = 4544-3) 30.4 % 40.1-51 L MCV (test code = 787-2) 78.8 fL 79-92.2 L MCH (test code = 785-6) 23.1 pg 25.7-32.2 L RDW (test code = 788-0) 18.0 % 11.6-14.4 H Platelets (test code = 777-3) 664 150- 450 K/CU MM H MPV (test code = 57857-1) 8.4 fL 9.4-12.4 L nRBC (test code = 413) 0 0- 0 /100 WBC Lab Interpretation (test code = 75383-1) Abnormal [facility] [id number] 11:39:00* Test Item Value Reference Range Interpretation Comments % Neutros (test code = 2816) 55 % % Lymphs (test code = 2817) 39 % % Monos (test code = 2818) 3 % % Eos (test code = 2819) 1 % % Baso (test code = 2820) 2 % # Neutros (test code = 2830) 4.73 K/ul 1.78-5.38 # Lymphs (test code = 2831) 3.35 K/ul 1.32-3.57 # Monos (test code = 2832) 0.26 K/uL 0.3-0.82 L # Eos (test code = 2834) 0.09 K/uL 0.04-0.54 # Baso (test code = 2835) 0.17 K/uL 0.01-0.08 H Total Counted (test code = 1351) 100 WBC Morphology (test code = 487) Normal Platelet Morphology (test code = 486) Normal Polychromasia (test code = 478) 1+ few Anisocytosis (test code = 961) 1+ few Microcytes (test code = 965) 1+ few Spherocytes (test code = 768) 1+ few Artifact (test code = 3432) Present Platelet Conc (test code = 3438) Increased TODD (test code = TODD) Systems Project Manager ID - Susan Mayen ser comments: Slide comments: Lab Interpretation (test code = 61035-0) [facility] AUTO [id number] 11:39:00* Test Item Value Reference Range Interpretation Comments WHITE BLOOD CELL COUNT (BEAKER) (test code = 775) 8.6 K/ L 3.5- 10.5 RED BLOOD CELL COUNT (BEAKER) (test code = 761) 3.86 M/ L 4.63-6 .08 L HEMOGLOBIN (BEAKER) (test code = 410) 8.9 GM/DL 13.7-17.5 L HEMATOCRIT (BEAKER) (test code = 411) 30.4 % 40.1-51.0 L MEAN CORPUSCULAR VOLUME (BEAKER) (test code = 753) 78.8 fL 79. 0-92.2 L MEAN CORPUSCULAR HEMOGLOBIN (BEAKER) (test code = 751) 23.1 pg 25.7-32.2 L MEAN CORPUSCULAR HEMOGLOBIN CONC (BEAKER) (test code = 752) 29.3 GM/DL 32.3-36.5 L RED CELL DISTRIBUTION WIDTH (BEAKER) (test code = 412) 18.0 % 11.6-14.4 H PLATELET COUNT (BEAKER) (test code = 756) 664 K/CU MM 150-450 H MEAN PLATELET VOLUME (BEAKER) (test code = 754) 8.4 fL 9.4-12 .4 L NUCLEATED RED BLOOD CELLS (BEAKER) (test code = 413) 0 /100 WBC 0 -0 (CELLAVISION MANUAL DIFF)2020-04-25 11:39:00* Test Item Value Reference Range Interpretation Comments NEUTROPHILS - REL (CELLAVISION)(BEAKER) (test code = 2816) 55 % LYMPHOCYTES - REL (CELLAVISION)(BEAKER) (test code = 2817) 39 % MONOCYTES - REL (CELLAVISION)(BEAKER) (test code = 2818) 3 % EOSINOPHILS - REL (CELLAVISION)(BEAKER) (test code = 2819) 1 % BASOPHILS - REL (CELLAVISION)(BEAKER) (test code = 2820) 2 % NEUTROPHILS - ABS (CELLAVISION)(BEAKER) (test code = 2830) 4.73 K/ul 1.78-5.38 LYMPHOCYTES - ABS (CELLAVISION)(BEAKER) (test code = 2831) 3.35 K/ul 1.32-3.57 MONOCYTES - ABS (CELLAVISION)(BEAKER) (test code = 2832) 0.26 K/uL 0.30-0.82 L EOSINOPHILS - ABS (CELLAVISION)(BEAKER) (test code = 2834) 0.09 K/uL 0.04-0.54 BASOPHILS - ABS (CELLAVISION)(BEAKER) (test code = 2835) 0.17 K/uL 0.01-0.08 H TOTAL COUNTED (BEAKER) (test code = 1351) 100 WBC MORPHOLOGY (BEAKER) (test code = 487) Normal PLT MORPHOLOGY (BEAKER) (test code = 486) Normal POLYCHROMATOPHILLIC RBCS(BEAKER) (test code = 478) 1+ few ANISOCYTOSIS (BEAKER) (test code = 961) 1+ few MICROCYTES (BEAKER) (test code = 965) 1+ few SPHEROCYTES (BEAKER) (test code = 768) 1+ few ARTIFACT (CELLAVISION)(BEAKER) (test code = 3432) Present PLATELET CONCENTRATION (CELLAVISION)(BEAKER) (test code = 3438) Inc reased Systems Project Manager ID - Susan Almazan comments: Slide comments: POCT-GLUCOSE METER 2020-04-25 08:08:00* Test Item Value Reference Range Interpretation Comments POC-GLUCOSE METER (BEAKER) (test code = 1538) 153 mg/dL 70-110 H : TESTED AT [facility] [address] [place] [address], [address]: Systems Project Manager/Purchase Price Analyst ID = [id number] for PATITO GUPTA Basic metabolic [id number] 06:06:00* Test Item Value Reference Range Interpretation Comments Sodium (test code = 2951-2) 136 meq/L 136-145 Potassium (test code = 2823-3) 3.6 meq/L 3.5-5.1 Chloride (test code = 2075-0) 104 meq/L 98-107 CO2 (test code = 8-9) 24 meq/L 22-29 BUN (test code = 3094-0) 6 mg/dL 7-21 L Creatinine (test code = 2160-0) 0.68 mg/dL 0.57-1.25 Glucose (test code = 2345-7) 192 mg/dL 70-105 H Calcium (test code = 16101-8) 9.0 mg/dL 8.4-10.2 EGFR (test code = 28906-8) 131 mL/min/1.73 sq m ESTIMATED GFR IS NOT ACCURATE CREATININE CLEARANCE IN PREDICTING GLOMERULAR FILTRATION RATE. ESTIMATED GFR IS NOT APPLICABLE FOR DIALYSIS PATIENTS. TODD (test code = TODD) Systems Project Manager ID - JUAN CARLOSASI Lab Interpretation (test code = 99023-2) [facility]normal [facility] [id number] 06:06:00* Test Item Value Reference Range Interpretation Comments Protein, Total (test code = 2885-2) 8.0 6.0- 8.3 gm/dL Albumin (test code = 44068-8) 3.5 g/dL 3.5-5 Total Bilirubin (test code = 1974-) 0.3 mg/dL 0.2-1.2 Bilirubin, Direct (test code = 1967-7) 0.2 mg/dL 0.1-0.5 Alkaline Phosphatase (test code = 6768-6) 291 U/L 40-150 H AST (test code = 1920-8) 18 U/L 5-34 ALT (test code = 1742-6) 25 U/L 6-55 TODD (test code = TODD) Systems Project Manager ID - EDASI Lab Interpretation (test code = 03216-1) [facility] Test Item Value Reference Range Interpretation Comments Magnesium (test code = 31144-1) 2.0 mg/dL 1.6-2.6 TODD (test code = TODD) Systems Project Manager ID - EDASI Lab Interpretation (test code = 14671-8) [facility]:06[facility]* Test Item Value Reference Range Interpretation Comments MAGNESIUM (BEAKER) (test code = 627) 2.0 mg/dL 1.6-2.6 Systems Project Manager ID - EDASIBASIC METABOLIC [id number] 06:06:00* Test Item Value Reference Range Interpretation Comments SODIUM (BEAKER) (test code = 381) 136 meq/L 136-145 POTASSIUM (BEAKER) (test code = 379) 3.6 meq/L 3.5-5.1 CHLORIDE (BEAKER) (test code = 382) 104 meq/L 98-107 CO2 (BEAKER) (test code = 355) 24 meq/L 22-29 BLOOD UREA NITROGEN (BEAKER) (test code = 354) 6 mg/dL 7-21 L CREATININE (BEAKER) (test code = 358) 0.68 mg/dL 0.57-1.25 GLUCOSE RANDOM (BEAKER) (test code = 652) 192 mg/dL 70-105 H CALCIUM (BEAKER) (test code = 697) 9.0 mg/dL 8.4-10.2 EGFR (BEAKER) (test code = 1092) 131 mL/min/1.73 sq m ESTIMATED GFR IS NOT ACCURATE CREATININE CLEARANCE IN PREDICTING GLOMERULAR FILTRATION RATE. ESTIMATED GFR IS NOT APPLICABLE FOR DIALYSIS PATIENTS. Systems Project Manager ID - EDASIHEPATIC FUNCTION [id number] 06:06:00* Test Item Value Reference Range Interpretation Comments TOTAL PROTEIN (BEAKER) (test code = 770) 8.0 gm/dL 6.0-8.3 ALBUMIN (BEAKER) (test code = 1145) 3.5 g/dL 3.5-5.0 BILIRUBIN TOTAL (BEAKER) (test code = 377) 0.3 mg/dL 0.2-1.2 BILIRUBIN DIRECT (BEAKER) (test code = 706) 0.2 mg/dL 0.1-0.5 ALKALINE PHOSPHATASE (BEAKER) (test code = 346) 291 U/L 40-150 H AST (SGOT) (BEAKER) (test code = 353) 18 U/L 5-34 ALT (SGPT) (BEAKER) (test code = 347) 25 U/L 6-55 Systems Project Manager ID - EDASIPOCT-GLUCOSE [id number] 22:02:00* Test Item Value Reference Range Interpretation Comments POC-GLUCOSE METER (BEAKER) (test code = 1538) 167 mg/dL 70-110 H : TESTED AT [facility] [address] [facility], [address]: Systems Project Manager/Purchase Price Analyst ID = [id number] for ALYSE LAKISHA SCHUMACHER CT, PELVIS, W [id number] 17:49:00Reason for exam:->FEVERWhat is the patient's sedation requirement?->No SedationFINAL REPORT TECHNIQUE: CT of the pelvis WITH [...] Trace free pelvic fluid. No free intraperitoneal air ..LYMPH NODES: No lymphadenopathy.VESSELS: Unremarkable. GI TRACT: There is a le ft lower quadrant and colostomy. There is a blind-ending rectosigmoid stump. [place] el loops are normal in caliber without evidence of obstruction. The appendix is normal.. Appendix is normal. BONES AND SOFT TISSUES: Prominent bilateral decubit us ulcers which extend to the level of the initial tuberosities there is increas ed sclerosis of the bilateral facial tuberosities with associated extensive hete rotopic ossification. There are lateral soft tissue defects overlying the bilate ral femora with increase sclerosis of the greater trochanter with adjacent heter otopic ossification. Mild degenerative changes are noted in the bilateral hips. No dislocation. IMPRESSION:Bilateral large decubitus ulcers extending to the in itial tuberosities with findings suggestive of chronic osteomyelitis of the bila teral ischial tuberosities. Large soft tissue defects over the bilateral proxima l femora with findings suggestive of chronic osteomyelitis in the regions of the greater trochanter. No focal fluid collection to suggest abscess.. Signed: Conner Cabezas MDReport Verified Date/Time: 04/24/2020 17:49:33 Reading Loc ation: [facility] [address] [place] [address] Radiology Reading Room pelvis with IV [id number] 17:49:00Interface, External Ris In - 04/24/2020 5:51 PM CDTFINAL REPORT TECHNIQUE: CT of the pelvis WITH intravenous contrast and WITHOUT oral contrast. Dose modulation, iterative reconstruction, and/or weight- based adjustment of the mA/kV was utilized to reduce the radiation dose to as low as reasonably achievable. INDICATION: Pelvic infection. COMPARISON: 07/31/2018. FINDINGS: PELVIC ORGANS/BLADDER: Nonspecific circumferential wall thickening of the urinary bladder which may relate to incomplete distention. PERITONEUM/RETROPERITONEUM: Trace free pelvic fluid. No free intraperitoneal air..LYMPH NODES: No lymphadenopathy.VESSELS: Unremarkable. GI TRACT: There is a left [...] noted in the bilateral hips. No dislocation. IMPRESSION:Bilateral large decubitus ulcers extending to the initial tuberosities with findings suggestive of chronic osteomyelitis of the bilateral ischial tuberosities. Large soft tissue defects over the bilateral proximal femora with findings suggestive of chronic osteomyelitis in the regions of the greater trochanter. No focal fluid collection to suggest abscess.. Signed: Conner Orr MDReport Verified Date/Time: 04/24/2020 17:49:33 Reading Location: [address] Radiology Reading Room [facility] [id number] 17:00:00* Test Item Value Reference Range Interpretation Comments POC-GLUCOSE METER (BEAKER) (test code = 1538) 170 mg/dL 70-110 H : TESTED AT [place] [id number] [facility], [address]: Systems Project Manager/Purchase Price Analyst ID = [id number] for KARELY BHARAT POCT-GLUCOSE [id number] 12:39:00* Test Item Value Reference Range Interpretation Comments POC-GLUCOSE METER (BEAKER) (test code = 1538) 200 mg/dL 70-110 H : TESTED AT [address], [address]: Systems Project Manager/Purchase Price Analyst ID = [id number] for JESSICAJenna CHARLES POCT-GLUCOSE [id number] 07:43:00* Test Item Value Reference Range Interpretation Comments POC-GLUCOSE METER (BEAKER) (test code = 1538) 273 mg/dL 70-110 H : TESTED AT [address], [address]: Systems Project Manager/Purchase Price Analyst ID = [id number] for ARIANNA KHANNA ECG 12 [id number] 06:46:06Interface, External Ris In - 04/24/2020 6:46 AM CDTVentricular Rate 90 BPMAtrial Rate 90 BPMP-R Interval 140 msQRS Duration 84 msQ-T Interval 384 msQTC Calculation(Keanuzematthew) 469 msP Orange 53 degreesR Orange 18 degreesT Orange [address] and T wave abnormalityAbnormal ECGNo previous ECGs availableConfirmed by Gerard MIGUEL MICHAEL (150) on 04/24/2020 6:46:01 [facility]MAGN[facility] 2020-04-24 06:04:00* Test Item Value Reference Range Interpretation Comments MAGNESIUM (BEAKER) (test code = 627) 2.0 mg/dL 1.6-2.6 Systems Project Manager ID Florence JEONG WBASIC METABOLIC [id number] 06:04:00* Test Item Value Reference Range Interpretation Comments SODIUM (BEAKER) (test code = 381) 137 meq/L 136-145 POTASSIUM (BEAKER) (test code = 379) 3.8 meq/L 3.5-5.1 CHLORIDE (BEAKER) (test code = 382) 106 meq/L 98-107 CO2 (BEAKER) (test code = 355) 23 meq/L 22-29 BLOOD UREA NITROGEN (BEAKER) (test code = 354) 6 mg/dL 7-21 L CREATININE (BEAKER) (test code = 358) 0.67 mg/dL 0.57-1.25 GLUCOSE RANDOM (BEAKER) (test code = 652) 170 mg/dL 70-105 H CALCIUM (BEAKER) (test code = 697) 9.0 mg/dL 8.4-10.2 EGFR (BEAKER) (test code = 1092) 133 mL/min/1.73 sq m ESTIMATED GFR IS NOT ACCURATE CREATININE CLEARANCE IN PREDICTING GLOMERULAR FILTRATION RATE. ESTIMATED GFR IS NOT APPLICABLE FOR DIALYSIS PATIENTS. Systems Project Manager ID Florence JEONG WHEPATIC FUNCTION [id number] 06:04:00* Test Item Value Reference Range Interpretation Comments TOTAL PROTEIN (BEAKER) (test code = 770) 8.1 gm/dL 6.0-8.3 ALBUMIN (BEAKER) (test code = 1145) 3.4 g/dL 3.5-5.0 L BILIRUBIN TOTAL (BEAKER) (test code = 377) 0.4 mg/dL 0.2-1.2 BILIRUBIN DIRECT (BEAKER) (test code = 706) 0.2 mg/dL 0.1-0.5 ALKALINE PHOSPHATASE (BEAKER) (test code = 346) 301 U/L 40-150 H AST (SGOT) (BEAKER) (test code = 353) 25 U/L 5-34 ALT (SGPT) (BEAKER) (test code = 347) 26 U/L 6-55 Systems Project Manager ID Florence ADENIKE WCBC W/PLT COUNT & AUTO [id number] 05:59:00* Test Item Value Reference Range Interpretation Comments WHITE BLOOD CELL COUNT (BEAKER) (test code = 775) 9.9 K/ L 3.5- 10.5 RED BLOOD CELL COUNT (BEAKER) (test code = 761) 4.08 M/ L 4.63-6 .08 L HEMOGLOBIN (BEAKER) (test code = 410) 9.7 GM/DL 13.7-17.5 L HEMATOCRIT (BEAKER) (test code = 411) 32.7 % 40.1-51.0 L MEAN CORPUSCULAR VOLUME (BEAKER) (test code = 753) 80.1 fL 79. 0-92.2 MEAN CORPUSCULAR HEMOGLOBIN (BEAKER) (test code = 751) 23.8 pg 25.7-32.2 L MEAN CORPUSCULAR HEMOGLOBIN CONC (BEAKER) (test code = 752) 29.7 GM/DL 32.3-36.5 L RED CELL DISTRIBUTION WIDTH (BEAKER) (test code = 412) 18.4 % 11.6-14.4 H PLATELET COUNT (BEAKER) (test code = 756) 644 K/CU MM 150-450 H MEAN PLATELET VOLUME (BEAKER) (test code = 754) 8.5 fL 9.4-12 .4 L NUCLEATED RED BLOOD CELLS (BEAKER) (test code = 413) 0 /100 WBC 0 -0 NEUTROPHILS RELATIVE PERCENT (BEAKER) (test code = 429) 50 % LYMPHOCYTES RELATIVE PERCENT (BEAKER) (test code = 430) 38 % MONOCYTES RELATIVE PERCENT (BEAKER) (test code = 431) 9 % EOSINOPHILS RELATIVE PERCENT (BEAKER) (test code = 432) 3 % BASOPHILS RELATIVE PERCENT (BEAKER) (test code = 437) 0 % NEUTROPHILS ABSOLUTE COUNT (BEAKER) (test code = 670) 4.97 K/ L 1.78-5.38 LYMPHOCYTES ABSOLUTE COUNT (BEAKER) (test code = 414) 3.72 K/ L 1.32-3.57 H MONOCYTES ABSOLUTE COUNT (BEAKER) (test code = 415) 0.90 K/ L 0. 30-0.82 H EOSINOPHILS ABSOLUTE COUNT (BEAKER) (test code = 416) 0.25 K/ L 0.04-0.54 BASOPHILS ABSOLUTE COUNT (BEAKER) (test code = 417) 0.04 K/ L 0. 01-0.08 IMMATURE GRANULOCYTES-RELATIVE PERCENT (BEAKER) (test code = 2801) 0 % 0-1 POCT-GLUCOSE [id number] 23:26:00* Test Item Value Reference Range Interpretation Comments POC-GLUCOSE METER (BEAKER) (test code = 1538) 152 mg/dL 70-110 H : TESTED AT [place] [id number] [facility], [address]: Systems Project Manager/Purchase Price Analyst ID = [id number] for SHALA JIMENEZ POCT-GLUCOSE [id number] 17:00:00* Test Item Value Reference Range Interpretation Comments POC-GLUCOSE METER (BEAKER) (test code = 1538) 123 mg/dL 70-110 H : TESTED AT [address], [address]: Systems Project Manager/Purchase Price Analyst ID = [id number] for BHARAT CALI [id number] 16:36:00* Test Item Value Reference Range Interpretation Comments Procalcitonin (test code = 67699-8) 0.05 ng/mL <0.05 H TODD (test code = TODD) SEPSIS RISK (ng/mL)Low: 0.05-0.50Intermediate: 0.51-2.00High: >=2.01 Lab Interpretation (test code = 84600-0) Abnormal [facility]PROCALCITONIN2020-08-04 16:36:00* Test Item Value Reference Range Interpretation Comments PROCALCITONIN (BEAKER) (test code = 3036) 0.05 ng/mL <0.05 H SEPSIS RISK (ng/mL)Low: 0.05-0.50Intermediate: 0.51-2.00High: > =[id number] 15:08:00* Test Item Value Reference Range Interpretation Comments Ferritin (test code = 2276-4) 131.18 ng/mL 5-275 TODD (test code = TODD) Systems Project Manager ID - NTP Lab Interpretation (test code = 59042-8) Normal [facility]FERRITIN2020-08-04 15:08:00* Test Item Value Reference Range Interpretation Comments FERRITIN (BEAKER) (test code = 361) 131.18 ng/mL 5.00-275.00 Systems Project Manager ID - NTPLactate dehydrogenase (LDH)2020-04-23 12:03:00* Test Item Value Reference Range Interpretation Comments LDH (test code = 2532-0) 245 U/L 125-220 H TODD (test code = TODD) Systems Project Manager ID - NTP Lab Interpretation (test code = 13605-9) Abnormal [facility] campusLACTATE DEHYDROGENASE (LDH)2020-04-23 12:03:00* Test Item Value Reference Range Interpretation Comments LACTATE DEHYDROGENASE (BEAKER) (test code = 635) 245 U/L 125-2 20 H Systems Project Manager ID - NTPPOCT-GLUCOSE [id number] 11:51:00* Test Item Value Reference Range Interpretation Comments POC-GLUCOSE METER (BEAKER) (test code = 1538) 278 mg/dL 70-110 H : Notified RN/MD: TESTED AT [address], [address]: Systems Project Manager/Purchase Price Analyst ID = [id number] for KARELY BHARAT Lactic acid, venous [id number] 06:54:00* Test Item Value Reference Range Interpretation Comments Lactate, Venous (test code = 2872) 1.03 mmol/L 0.5-2.2 TODD (test code = TODD) Systems Project Manager ID - NTP Lab Interpretation (test code = 84690-1) Normal [facility] campusLACTIC ACID, [id number] 06:54:00* Test Item Value Reference Range Interpretation Comments LACTATE BLOOD VENOUS (2) (BEAKER) (test code = 2872) 1.03 mmol/L 0 .50-2.20 Systems Project Manager ID - NTPUrinalysis w/Microscopic + Reflex to [id number] 05:06:00 * Test Item Value Reference Range Interpretation Comments Color, UA (test code = 5778-6) Yellow Clarity, UA (test code = 5767-9) Clear Specific [place], UA (test code = 5811-5) 1.036 1.001-1.035 H pH, UA (test code = 5803-2) 6.0 5.0-8.0 Protein, UA (test code = 13441-4) 100 mg/dL Negative A Glucose, UA (test code = 365) 30 mg/dL Negative A Ketones, UA (test code = 2514-8) Negative Negative Bilirubin, UA (test code = 98992-7) Negative Negative Blood, UA (test code = 09756-4) Trace Negative A Nitrite, UA (test code = 5802-4) Negative Negative Leukocytes, UA (test code = 5799-2) Negative Negative Urobilinogen, UA (test code = 10096-7) 4.0 mg/dL 0.2-1 H RBC, UA (test code = 29965-2) 1 /HPF WBC, UA (test code = 5821-4) 5 /HPF Mucus (test code = 8247-9) Occasional Squam Epithel, UA (test code = 71204-8) 1 /HPF Specimen Source (test code = 2795) TODD (test code = TODD) Systems Project Manager ID - [auto]Systems Project Manager ID - aissatou Lab Interpretation (test code = 21728-5) [facility] UR[facility] [id number] 05:06:00* Test Item Value Reference Range Interpretation Comments COLOR (BEAKER) (test code = 470) Yellow CLARITY (BEAKER) (test code = 469) Clear SPECIFIC GRAVITY UA (BEAKER) (test code = 468) 1.036 1.001-1 .035 H PH UA (BEAKER) (test code = 467) 6.0 5.0-8.0 PROTEIN UA (BEAKER) (test code = 464) 100 mg/dL Negative A GLUCOSE UA (BEAKER) (test code = 365) 30 mg/dL Negative A KETONES UA (BEAKER) (test code = 371) Negative Negative BILIRUBIN UA (BEAKER) (test code = 462) Negative Negative BLOOD UA (BEAKER) (test code = 461) Trace Negative A NITRITE UA (BEAKER) (test code = 465) Negative Negative LEUKOCYTE ESTERASE UA (BEAKER) (test code = 466) Negative Negat marianne UROBILINOGEN UA (BEAKER) (test code = 463) 4.0 mg/dL 0.2-1.0 H RBC UA (BEAKER) (test code = 519) 1 /HPF WBC UA (BEAKER) (test code = 520) 5 /HPF MUCUS (BEAKER) (test code = 1574) Occasional SQUAMOUS EPITHELIAL (BEAKER) (test code = 516) 1 /HPF SOURCE(BEAKER) (test code = 2795) Systems Project Manager ID - [auto]Systems Project Manager ID - Heather-CoV2/RT-PCR (Symptomatic ONLY) 2020-04-23 04:05:00* Test Item Value Reference Range Interpretation Comments SARS-COV2/RT-PCR (test code = 34073-1) Positive N ot Detected, Negative, See external report for linked test AA SARS-COV-2 PERFORMING LAB (test code = 34860-7) [facility] TODD (test code = TODD) Results are for the detectio n of SARS-CoV-2 RNA. The SARS-CoV-2 RNA is generally detectable in nasopharyngeal swab specimens during the acute phase of infection. Positive results are indicative of active infection with SARS-CoV-2; clinical correlation with patient history and other diagnostic information is necessary to determine patient infection status. Positive results do not rule out bacterial infection or co-infection with other viruses. The agent detected may not be the definite cause of disease. The limit of detection for this assay is 250 copies/mL. This SARS CoV-2 test is a rapid, real-time RT-PCR test intended for the qualitative detection of nucleic acid from SARS-CoV-2 in a nasopharyngeal swab specimen collected from individuals suspected of COVID-19 by their healthcare provider. This test has not been Food and Drug Administration (FDA) cleared or approved and has been authorized by FDA under an Emergency Use Authorization (EUA). This EUA will be effective until the declaration that circumstances exist justifying the authorization of the emergency use of in vitro diagnostic tests for detection and/or diagnosis of COVID-19 is terminated under Section 564(b)(2) of the Act or the EUA is revoked under Section 564(g) of the Act. Fact Sheet for Healthcare Providers:https://www.SportsBeat.com.com/Documents/Xpert%20Xpress%20SARS%20CoV-2/Fact%2 0Sheets/062-9902%52WHUZ-JSW-3%20HEALTHCARE%20PROVIDERS%20FACT%20SHEET.pdf Fact Sheet for Healthcare Patients:https://www.SportsBeat.com.HackMyPic/Documents/Xpert%20Xpress%20SARS%20CoV-2/Fact%20 Sheets/002-6281%14KXWG-BML-6%20PATIENT%20FACT%20SHEET.pdf Performing Labo ratory:[facility] [place] [address] Lab Interpretation (test code = 75372-3) Abnormal [facility] ([facility])2020-04-23 04:05:00* Test Item Value Reference Range Interpretation Comments SARS-COV2/RT-PCR (test code = 0710245) Positive N ot Detected, Negative, See external report for linked test AA SARS-COV-2 PERFORMING LAB (test code = 5765808) [facility] Results are for the detection of SARS-CoV-2 RNA. The SARS-CoV-2 RNA is generally detectable in nasopharyngeal swab specimens during the acute phase of infection . Positive results are indicative of active infection with SARS-CoV-2; clinical correlation with patient history and other diagnostic information is necessary t o determine patient infection status. Positive results do not rule out bacterial infection or co-infection with other viruses. The agent detected may not be the definite cause of disease. The limit of detection for this assay is 250 copies/ mL.This SARS CoV-2 test is a rapid, real-time RT-PCR test intended for the quali tative detection of nucleic acid from SARS-CoV-2 in a nasopharyngeal swab specim en collected from individuals suspected of COVID-19 by their healthcare provider .This test has not been Food and Drug Administration (FDA) cleared or approved a nd has been authorized by FDA under an Emergency Use Authorization (EUA). This E UA will be effective until the declaration that circumstances exist justifying t he authorization of the emergency use of in vitro diagnostic tests for detection and/or diagnosis of COVID-19 is terminated under Section 564(b)(2) of the Act o r the EUA is revoked under Section 564(g) of the Act.Fact Sheet for Healthcare P hoders:https://www.Book A Boat/Documents/Xpert%20Xpress%20SARS%20CoV-2/Fact%20 Sheets/302-0094%16LSQL-TWM-5%20HEALTHCARE%20PROVIDERS%20FACT%20SHEET.pdfFact She et for Healthcare Patients:https://www.Book [employer] Boat/Documents/Xpert%20Xpress%20SA RS%20CoV-2/Fact%20Sheets/302-3801%18MCVK-RQU-1%20PATIENT%20FACT%20SHEET.pdfPerfo rming Laboratory:[facility], [place] [address]RAD, PELVIS, 1 OR 2 [id number] 03:59:00Reason for exam:->FEVERReason for exam:->decub ulcersFINAL REPORT RAD, PELVIS, 1 OR 2 VIEWS CLINICAL HISTORY:FEVERdecub ulcers TECHNIQUE: RAD, PELVIS, 1 OR 2 VIEWS COMPARISON: CT pelvis on 07/31/2018IMPRESSION:Extensive heterotopic ossification overlies the inferior pubic rami [...] erosion. No acute hip dislocation. Signed: Sony May MDReport Verified Date/Time: 04/23/2020 03:59:07 pelvis 1 or 2 [id number] 03:59:00Interface, External Ris In - 04/23/2020 4:01 AM CDTFINAL REPORT RAD, PELVIS, 1 OR 2 VIEWS CLINICAL HISTORY:FEVERdecub ulcers TECHNIQUE: RAD, PELVIS, 1 OR 2 VIEWS COMPARISON: CT pelvis on 07/31/2018IMPRESSION:Extensive heterotopic ossification overlies the inferior pubic rami which demonstrate diffuse sclerosis. Sclerosis of the left proximal femur may alternatively represent superimposition artifact from heterotopic ossification. Lucency overlying the right hip and gluteal region concerning for subcutaneous gas/abscesses or deep u lcerations. There is soft tissue irregularity concerning for decubitus ulceratio ns overlying the ischial tuberosities. No definite bone erosion but osteomyeliti s may be radiographically occult and given extent of bony abnormalities, cannot be reliably excluded on the current exam. Correlation with CT pelvis with IV con trast should be considered to exclude abscess formation and osseous erosion. No acute hip dislocation. Signed: Sony May MDReport Verified Date/Time: 12/2019 03:59:07 Electronically signed by: SONY MAY MD on 04/23 03:59 AM [facility]Com[facility] 2020-04-23 02:42:00* Test Item Value Reference Range Interpretation Comments Protein, Total (test code = 2885-2) 8.1 6.0- 8.3 gm/dL Albumin (test code = 56614-1) 3.5 g/dL 3.5-5 Alkaline Phosphatase (test code = 6768-6) 316 U/L 40-150 H Total Bilirubin (test code = 1975-2) 0.4 mg/dL 0.2-1.2 Sodium (test code = 2951-2) 138 meq/L 136-145 Potassium (test code = 2823-3) 3.7 meq/L 3.5-5.1 Chloride (test code = 2075-0) 105 meq/L 98-107 CO2 (test code = 8-9) 24 meq/L 22-29 BUN (test code = 3094-0) 11 mg/dL 7-21 Creatinine (test code = 2160-0) 0.80 mg/dL 0.57-1.25 Glucose (test code = 2345-7) 257 mg/dL 70-105 H Calcium (test code = 43820-6) 9.0 mg/dL 8.4-10.2 AST (test code = 1920-8) 32 U/L 5-34 ALT (test code = 1742-6) 27 U/L 6-55 EGFR (test code = 21698-2) 108 mL/min/1.73 sq m ESTIMATED GFR IS NOT ACCURATE CREATININE CLEARANCE IN PREDICTING GLOMERULAR FILTRATION RATE. ESTIMATED GFR IS NOT APPLICABLE FOR DIALYSIS PATIENTS. TODD (test code = TODD) Systems Project Manager ID - ADENIKE W Lab Interpretation (test code = 45273-0) Abnormal [facility] 02:42:00* Test Item Value Reference Range Interpretation Comments Phosphorus (test code = 2777-1) 3.2 mg/dL 2.3-4.7 TODD (test code = TODD) Systems Project Manager ID Florence JEONG W Lab Interpretation (test code = 14819-5) Normal [facility]C-Reactive [id number] 02:42:00* Test Item Value Reference Range Interpretation Comments CRP (test code = 676) 21.99 mg/dL 0-0.5 H TODD (test code = TODD) Systems Project Manager ID - ADENIKE W Lab Interpretation (test code = 97900-8) Abnormal [facility]PHOSPHORUS2020-08-04 02:42:00* Test Item Value Reference Range Interpretation Comments PHOSPHORUS (BEAKER) (test code = 604) 3.2 mg/dL 2.3-4.7 Systems Project Manager ID - ADENIKE [id number] 02:42:00* Test Item Value Reference Range Interpretation Comments MAGNESIUM (BEAKER) (test code = 627) 2.0 mg/dL 1.6-2.6 Systems Project Manager ID - ADENIKE WCOMPREHENSIVE METABOLIC [id number] 02:42:00* Test Item Value Reference Range Interpretation Comments TOTAL PROTEIN (BEAKER) (test code = 770) 8.1 gm/dL 6.0-8.3 ALBUMIN (BEAKER) (test code = 1145) 3.5 g/dL 3.5-5.0 ALKALINE PHOSPHATASE (BEAKER) (test code = 346) 316 U/L 40-150 H BILIRUBIN TOTAL (BEAKER) (test code = 377) 0.4 mg/dL 0.2-1.2 SODIUM (BEAKER) (test code = 381) 138 meq/L 136-145 POTASSIUM (BEAKER) (test code = 379) 3.7 meq/L 3.5-5.1 CHLORIDE (BEAKER) (test code = 382) 105 meq/L 98-107 CO2 (BEAKER) (test code = 355) 24 meq/L 22-29 BLOOD UREA NITROGEN (BEAKER) (test code = 354) 11 mg/dL 7-21 CREATININE (BEAKER) (test code = 358) 0.80 mg/dL 0.57-1.25 GLUCOSE RANDOM (BEAKER) (test code = 652) 257 mg/dL 70-105 H CALCIUM (BEAKER) (test code = 697) 9.0 mg/dL 8.4-10.2 AST (SGOT) (BEAKER) (test code = 353) 32 U/L 5-34 ALT (SGPT) (BEAKER) (test code = 347) 27 U/L 6-55 EGFR (LENORE) (test code = 1092) 108 mL/min/1.73 sq m ESTIMATED GFR IS NOT ACCURATE CREATININE CLEARANCE IN PREDICTING GLOMERULAR FILTRATION RATE. ESTIMATED GFR IS NOT APPLICABLE FOR DIALYSIS PATIENTS. Systems Project Manager ID - ADENIKE WC-REACTIVE [id number] 02:42:00* Test Item Value Reference Range Interpretation Comments C-REACTIVE PROTEIN (LENORE) (test code = 676) 21.99 mg/dL 0.00-0.5 0 H Systems Project Manager ID - ADENIKE WLACTIC ACID, [id number] 02:39:00* Test Item Value Reference Range Interpretation Comments LACTATE BLOOD VENOUS (2) (LENORE) (test code = 2872) 1.55 mmol/L 0 .50-2.20 Specimen slightly hemolyzed Systems Project Manager ID - ADENIKE [id number] 02:37:00* Test Item Value Reference Range Interpretation Comments PTT (test code = 44656-1) 40.7 22.5- 36.0 seconds H Lab Interpretation (test code = 10287-4) [facility] Test Item Value Reference Range Interpretation Comments PARTIAL THROMBOPLASTIN TIME (LENORE) (test code = 760) 40.7 seconds 22.5-36.0 H Prothrombin time/[id number] 02:35:00* Test Item Value Reference Range Interpretation Comments Protime (test code = 5902-2) 15.1 11.9- 14.2 seconds H INR (test code = 6301-6) 1.2 <=5.9 TODD (test code = TODD) Effective 02/15/2019: PT Refe rence Range ChangeNew: 11.9- 14.2 Previous: 11.7-14.7 RECOMMENDED COUMADIN/WARFARIN INR THERAPY RANGESSTANDARD DOSE: 2.0-3.0 Includes: PROPHYLAXIS for venous thrombosis, sys temic embolization; TREATMENT for venous thrombosis and/or pulmonary embolus.HIGH RISK: Target INR is 2.5-3.5 for patients wiht mechanical heart valves. Lab Interpretation (test code = 92077-9) [facility]/[id number] 02:35:00* Test Item Value Reference Range Interpretation Comments PROTIME (BEAKER) (test code = 759) 15.1 seconds 11.9-14.2 H INR (BEAKER) (test code = 370) 1.2 <=5.9 Effective 02/15/2019: PT Reference Range ChangeNew: 11.9-14.2 Previous: 11.7-14. 7RECOMMENDED COUMADIN/WARFARIN INR THERAPY RANGESSTANDARD DOSE: 2.0-3.0 Include s: PROPHYLAXIS for venous thrombosis, systemic embolization; TREATMENT for venou s thrombosis and/or pulmonary embolus.HIGH RISK: Target INR is 2.5-3.5 for patie nts wiht mechanical heart valves.CBC W/PLT COUNT & AUTO [id number] 02:29:00* Test Item Value Reference Range Interpretation Comments WHITE BLOOD CELL COUNT (BEAKER) (test code = 775) 13.3 K/ L 3.5- 10.5 H RED BLOOD CELL COUNT (BEAKER) (test code = 761) 4.01 M/ L 4.63-6 .08 L HEMOGLOBIN (BEAKER) (test code = 410) 9.7 GM/DL 13.7-17.5 L HEMATOCRIT (BEAKER) (test code = 411) 32.4 % 40.1-51.0 L MEAN CORPUSCULAR VOLUME (BEAKER) (test code = 753) 80.8 fL 79. 0-92.2 MEAN CORPUSCULAR HEMOGLOBIN (BEAKER) (test code = 751) 24.2 pg 25.7-32.2 L MEAN CORPUSCULAR HEMOGLOBIN CONC (BEAKER) (test code = 752) 29.9 GM/DL 32.3-36.5 L RED CELL DISTRIBUTION WIDTH (BEAKER) (test code = 412) 18.6 % 11.6-14.4 H PLATELET COUNT (BEAKER) (test code = 756) 655 K/CU MM 150-450 H MEAN PLATELET VOLUME (BEAKER) (test code = 754) 8.9 fL 9.4-12 .4 L NUCLEATED RED BLOOD CELLS (BEAKER) (test code = 413) 0 /100 WBC 0 -0 NEUTROPHILS RELATIVE PERCENT (BEAKER) (test code = 429) 64 % LYMPHOCYTES RELATIVE PERCENT (BEAKER) (test code = 430) 25 % MONOCYTES RELATIVE PERCENT (BEAKER) (test code = 431) 10 % EOSINOPHILS RELATIVE PERCENT (BEAKER) (test code = 432) 1 % BASOPHILS RELATIVE PERCENT (BEAKER) (test code = 437) 0 % NEUTROPHILS ABSOLUTE COUNT (BEAKER) (test code = 670) 8.43 K/ L 1.78-5.38 H LYMPHOCYTES ABSOLUTE COUNT (BEAKER) (test code = 414) 3.32 K/ L 1.32-3.57 MONOCYTES ABSOLUTE COUNT (BEAKER) (test code = 415) 1.30 K/ L 0. 30-0.82 H EOSINOPHILS ABSOLUTE COUNT (BEAKER) (test code = 416) 0.12 K/ L 0.04-0.54 BASOPHILS ABSOLUTE COUNT (BEAKER) (test code = 417) 0.04 K/ L 0. 01-0.08 IMMATURE GRANULOCYTES-RELATIVE PERCENT (BEAKER) (test code = 2801) 0 % 0-1 RAD, CHEST, 1 VIEW, NON [id number] 00:37:00Reason for exam:->FEVERShould this be performed at the bedside?->YesFINAL REPORT RAD, CHEST, 1 VIEW, NON DEPT CLINICAL HISTORY: FEVER TECHNIQUE: Single view of the chest. COMPARISON: January 19, 2020 IMPRESSION:Stable elevated right hemidiaphragm. The right costophrenic angle blunting suggests stable small right pleural effusion. There are stable reticulations within the right lung likely bronchovascular crowding, atelectasis versus asymmetric edema. No new lung consolidation. No pneumothorax. Left lung is well aerated. Cardiomediastinal silhouette is stable. In summary, examination is not significant change compared to January 19, 2020. Signed: Sony May MDReport Verified Date/Time: 04/23/2020 00:37:09 chest 1 view portable / [id number] 00:37:00 Interface, External Ris In - 04/23/2020 12:39 AM CDTFINAL REPORT PATIENT ID: [id number] RAD, CHEST, 1 VIEW, NON DEPT CLINICAL HISTORY: FEVER TECHNIQUE: Single view of the chest. COMPARISON: January 19, 2020 IMPRESSION:Stable elevated right irene diaphragm. The right costophrenic angle blunting suggests stable small right ple ural effusion. There are stable reticulations within the right lung likely bronc hovascular crowding, atelectasis versus asymmetric edema. No new lung consolidat ion. No pneumothorax. Left lung is well aerated. Cardiomediastinal silhouette is stable. In summary, examination is not significant change compared to January 18. Signed: Sony May MDReport Verified Date/Time: 04/23/2020 00:37:09 [facility]ECG/EKG [id number] 23:44:57Hossein Verdin MD 04/29/2020 12:58 AMECG/EKG InterpretationDate/Time: 04/23/2020 2:42 AMPerformed by: Hossein Verdin MDAuthorized by: Felecia Ge MD The ECG was interpreted by ED physician. The ECG is interpreted as sinus rhythm. Rate is normal rate. Conduction: conduction normal. ST segments normal. T waves normal. Orange is normal. Other findings: no other findings. Right sided lead use: right- sided leads not used. Left sided lead use: Posterior leads were not used. Clinic al Impression: normal ECGECG reviewed and does not meet STEMI criteria. [facility] campusCB W/AUTO [id number] 13:15:00* Test Item Value Reference Range Interpretation Comments WHITE BLOOD CELL (test code = WBC) 10.48 x10 3/uL 4.5-11.0 N RED BLOOD CELL (test code = RBC) 4.41 x10 6/uL 4.00-5.60 N HEMOGLOBIN (test code = HGB) 10.4 g/dL 12.5-16.9 L HEMATOCRIT (test code = HCT) 35.3 % 37.5-50.7 L MEAN CELL VOLUME (test code = MCV) 80.0 fL 81.0-99.0 L MEAN CELL HGB (test code = MCH) 23.6 pg 27.0-33.0 L MEAN CELL HGB CONCETRATION (test code = MCHC) 29.5 g/dL 33.0-37. 0 L RED CELL DISTRIBUTION WIDTH CV (test code = RDW) 15.9 % 11.5- 14.5 H RED CELL DISTRIBUTION WIDTH SD (test code = RDW-SD) 46.5 fL 37 .0-54.0 N PLATELET COUNT (test code = PLT) 712 x10 3/uL 150-400 H MEAN PLATELET VOLUME (test code = MPV) 8.1 fL 7.0-9.0 N NEUTROPHIL % (test code = NT%) 51.6 % 56.0-77.0 L IMMATURE GRANULOCYTE % (test code = IG%) 0.4 % 0.0-2.0 N LYMPHOCYTE % (test code = LY%) 38.5 % 14.0-32.0 H MONOCYTE % (test code = MO%) 6.8 % 4.8-9.0 N EOSINOPHIL % (test code = EO%) 2.1 % 0.3-3.7 N BASOPHIL % (test code = BA%) 0.6 % 0.0-2.0 N NUCLEATED RBC % (test code = NRBC%) 0.0 % 0-0 N NEUTROPHIL # (test code = NT#) 5.41 x10 3/uL 2.0-7.6 N IMMATURE GRANULOCYTE # (test code = IG#) 0.04 x10 3/uL 0.00-0.03 H LYMPHOCYTE # (test code = LY#) 4.04 x10 3/uL 1.0-3.8 H MONOCYTE # (test code = MO#) 0.71 x10 3/uL 0.1-0.8 N EOSINOPHIL # (test code = EO#) 0.22 x10 3/uL 0.0-0.2 H BASOPHIL # (test code = BA#) 0.06 x10 3/uL 0.0-0.2 N NUCLEATED RBC # (test code = NRBC#) 0.00 x10 3/uL 0.0-0.1 N MANUAL DIFF REQUIRED (test code = MDIFF) NO SLIDE REVIEWED, CONSISTENT WITH AUTO DIFF. BASIC METABOLIC [id number] 12:56:00* Test Item Value Reference Range Interpretation Comments SODIUM (test code = NA) 135 mEq/L 134-147 N POTASSIUM (test code = K) 4.1 mEq/L 3.4-5.0 N CHLORIDE (test code = CL) 104 mEq/L 100-108 N CARBON DIOXIDE (test code = CO2) 27 mEq/L 21-33 N ANION GAP (test code = GAP) 8 0-20 N GLUCOSE (test code = GLU) 233 mg/dL 70-110 H BLOOD UREA NITROGEN (test code = BUN) 11 mg/dL 7-18 N GLOMERULAR FILTRATION RATE (test code = GFR) 126.2 105-110 H Units of measure = ml/min/1.73 m2 CREATININE (test code = CREAT) 0.7 mg/dL 0.6-1.3 N CALCIUM (test code = CA) 8.8 mg/dL 8.0-10.5 N CBC W/AUTO [id number] 12:34:00* Test Item Value Reference Range Interpretation Comments WHITE BLOOD CELL (test code = WBC) 10.48 x10 3/uL 4.5-11.0 N RED BLOOD CELL (test code = RBC) 4.41 x10 6/uL 4.00-5.60 N HEMOGLOBIN (test code = HGB) 10.4 g/dL 12.5-16.9 L HEMATOCRIT (test code = HCT) 35.3 % 37.5-50.7 L MEAN CELL VOLUME (test code = MCV) 80.0 fL 81.0-99.0 L MEAN CELL HGB (test code = MCH) 23.6 pg 27.0-33.0 L MEAN CELL HGB CONCETRATION (test code = MCHC) 29.5 g/dL 33.0-37. 0 L RED CELL DISTRIBUTION WIDTH CV (test code = RDW) 15.9 % 11.5- 14.5 H RED CELL DISTRIBUTION WIDTH SD (test code = RDW-SD) 46.5 fL 37 .0-54.0 N PLATELET COUNT (test code = PLT) 712 x10 3/uL 150-400 H MEAN PLATELET VOLUME (test code = MPV) 8.1 fL 7.0-9.0 N NEUTROPHIL % (test code = NT%) % 56.0-77.0 LYMPHOCYTE % (test code = LY%) % 14.0-32.0 NEUTROPHIL # (test code = NT#) x10 3/uL 2.0-7.6 LYMPHOCYTE # (test code = LY#) x10 3/uL 1.0-3.8 MANUAL DIFF REQUIRED (test code = MDIFF) AFB culture + smear (non-sputum)2020-03-11 10:51:00* Test Item Value Reference Range Interpretation Comments Result (test code = 6463-4) No acid-fast bacilli isolated in 42 day s AFB Smear (test code = 09528-1) No acid fast bacilli seen [facility] + [facility]MEAR (NON-SPUTUM)2020-03-11 10:51:00 * Test Item Value Reference Range Interpretation Comments CULTURE (BEAKER) (test code = 1095) No acid-fast bacilli isolate d in 42 days AFB SMEAR (BEAKER) (test code = 994) No acid fast bacilli seen Fungus culture + [id number] 16:33:00* Test Item Value Reference Range Interpretation Comments Result (test code = 6463-4) No fungus isolated in 28 days Fungus Smear (test code = 1406) No fungi seen [facility]FUN[facility] + [id number] 16:33:00* Test Item Value Reference Range Interpretation Comments CULTURE (BEAKER) (test code = 1095) No fungus isolated in 28 days FUNGUS SMEAR (BEAKER) (test code = 1406) No fungi seen Anaerobic [id number] 17:25:00* Test Item Value Reference Range Interpretation Comments Result (test code = 6463-4) No anaerobes isolated [facility]ANAEROBIC [id number] 17:25:00* Test Item Value Reference Range Interpretation Comments CULTURE (BEAKER) (test code = 1095) No anaerobes isolated BLOOD [id number] 17:00:00* Test Item Value Reference Range Interpretation Comments CULTURE (BEAKER) (test code = 1095) No growth in 5 days BLOOD [id number] 17:00:00* Test Item Value Reference Range Interpretation Comments CULTURE (BEAKER) (test code = 1095) No growth in 5 days Surgically obtained culture + gram [id number] 12:43:00* Test Item Value Reference Range Interpretation Comments Result (test code = 6463-4) <1+ Same organism has been isolated from cultures(s) of the same body site and collection date. Repeat identification and susceptibility testing performed only after consultation with the clinical tx crobiology laboratory. A Refer to previous culture ofAcinetobacter baumannii Gram Stain Result (test code = 1123) No organisms seen Lab Interpretation (test code = 21512-6) [facility] GRAM [id number] 12:43:00* Test Item Value Reference Range Interpretation Comments CULTURE (BEAKER) (test code = 1095) A <1+ Same organism has been isolated from cultures(s) of the same body site and collection date. Repeat identification and susceptibility testing performed only after consultation with the clinical microbiology laboratory.Refer to previous culture ofAcinetobacter baumannii GRAM STAIN RESULT (BEAKER) (test code = 1123) <1+ WBCs GRAM STAIN RESULT (BEAKER) (test code = 801467) No organisms seen SURGICALLY OBTAINED CULTURE + GRAM [id number] 12:35:00* Test Item Value Reference Range Interpretation Comments CULTURE (BEAKER) (test code = 1095) METHICILLIN RESISTANT ST APHYLOCOCCUS AUREUS A 4+ Methicillin resistant Sta phylococcus aureus Clindamycin (test code = 10) S Erythromycin (test code = 4) R Linezolid (test code = 40) S Nitrofurantoin (test code = 23) S Oxacillin (test code = 14) R Rifampin (test code = 43) S Tetracycline (test code = 2) S Trimethoprim + Sulfamethoxazole (test code = 47) S Vancomycin (test code = 13) S CULTURE (BEAKER) (test code = 1095) ACINETOBACTER BAUMANNII COMPLEX A 4+ Acinetobacter baumannii complex Amikacin (test code = 1) Susceptible 0-16 , Resistant <0 or >16 S Aztreonam (test code = 32) Cefepime (test code = 51) Susceptible 0-8 , Resistant <0 or >8 R Ceftazidime (test code = 27) Susceptible 0-8 , Resista nt <0 or >8 R Ciprofloxacin (test code = 7) Susceptible 0-1 , Resist ant <0 or >1 R Gentamicin (test code = 18) Susceptible 0-4 , Resistan t <0 or >4 S Imipenem (test code = 19) Susceptible 0-2 , Resistant <0 or >2 R Levofloxacin (test code = 22) Susceptible 0-2 , Resist ant <0 or >2 R Meropenem (test code = 34) Susceptible 0-2 , Resistant <0 or >2 R Piperacillin (test code = 24) Susceptible 0-16 , Resis tant <0 or >16 R Piperacillin + Tazobactam (test code = 29) Susceptible 0-16 , Resistant <0 or >16 R Tobramycin (test code = 25) Susceptible 0-4 , Resistan t <0 or >4 S Trimethoprim + Sulfamethoxazole (test code = 47) Susceptible 0-40 , Resistant <0 or >40 S GRAM STAIN RESULT (BEAKER) (test code = 1123) 1+ WBCs GRAM STAIN RESULT (BEAKER) (test code = 521462) 4+ gra m positive cocci in pairs and clusters BLOOD [id number] 18:00:00* Test Item Value Reference Range Interpretation Comments CULTURE (BEAKER) (test code = 1095) No growth in 5 days BLOOD [id number] 09:05:00* Test Item Value Reference Range Interpretation Comments CULTURE (BEAKER) (test code = 1095) A From Aerobic Bottle Only Coagulase negative Staphylococcus GRAM STAIN RESULT (BEAKER) (test code = 1123) From aer obic bottle only: gram positive cocci in clusters POCT-GLUCOSE [id number] 14:17:00* Test Item Value Reference Range Interpretation Comments POC-GLUCOSE METER (BEAKER) (test code = 1538) 182 mg/dL 70-110 H : Notified RN/MD: TESTED AT [address], [address]: Systems Project Manager/Purchase Price Analyst ID = [id number] for Ana Vincent WOUND CULTURE + GRAM [id number] 09:13:00* Test Item Value Reference Range Interpretation Comments CULTURE (BEAKER) (test code = 1095) PSEUDOMONAS AERUGINOSA A 4+ Pseudomonas aeruginosa Amikacin (test code = 1) Susceptible 0-16 , Resistant <0 or >16 S Aztreonam (test code = 32) Susceptible 0-8 , Resistant <0 or >8 S Cefepime (test code = 51) Susceptible 0-8 , Resistant <0 or >8 S Ceftazidime (test code = 27) Susceptible 0-8 , Resista nt <0 or >8 S Ciprofloxacin (test code = 7) Susceptible 0-0.5 , Resi stant <0 or >.5 S Gentamicin (test code = 18) Susceptible 0-4 , Resistan t <0 or >4 S Levofloxacin (test code = 22) Susceptible 0-1 , Resist ant <0 or >1 S Meropenem (test code = 34) Susceptible 0-2 , Resistant <0 or >2 S Piperacillin (test code = 24) Susceptible 0-16 , Resis tant <0 or >16 S Piperacillin + Tazobactam (test code = 29) Susceptible 0-16 , Resistant <0 or >16 S Tobramycin (test code = 25) Susceptible 0-4 , Resistan t <0 or >4 S CULTURE (BEAKER) (test code = 1095) METHICILLIN RESISTANT ST APHYLOCOCCUS AUREUS A 4+ Methicillin resistant Sta phylococcus aureus Clindamycin (test code = 10) S Erythromycin (test code = 4) R Linezolid (test code = 40) S Nitrofurantoin (test code = 23) S Oxacillin (test code = 14) R Rifampin (test code = 43) S Tetracycline (test code = 2) S Trimethoprim + Sulfamethoxazole (test code = 47) S Vancomycin (test code = 13) S GRAM STAIN RESULT (BEAKER) (test code = 1123) 1+ WBCs GRAM STAIN RESULT (BEAKER) (test code = 136991) 2+ gram negative coccobacilli GRAM STAIN RESULT (BEAKER) (test code = 209137) 1+ gra m positive cocci in pairs and clusters Urine [id number] 08:58:00* Test Item Value Reference Range Interpretation Comments Result (test code = 6463-4) <10,000 col/mL Staphylococcus epidermid is A Lab Interpretation (test code = 95061-1) Abnormal [facility] W/PLT COUNT & AUTO [id number] 07:48:00* Test Item Value Reference Range Interpretation Comments WHITE BLOOD CELL COUNT (BEAKER) (test code = 775) 9.6 K/ L 3.5- 10.5 RED BLOOD CELL COUNT (BEAKER) (test code = 761) 4.03 M/ L 4.63-6 .08 L HEMOGLOBIN (BEAKER) (test code = 410) 10.1 GM/DL 13.7-17.5 L HEMATOCRIT (BEAKER) (test code = 411) 33.8 % 40.1-51.0 L MEAN CORPUSCULAR VOLUME (BEAKER) (test code = 753) 83.9 fL 79. 0-92.2 MEAN CORPUSCULAR HEMOGLOBIN (BEAKER) (test code = 751) 25.1 pg 25.7-32.2 L MEAN CORPUSCULAR HEMOGLOBIN CONC (BEAKER) (test code = 752) 29.9 GM/DL 32.3-36.5 L RED CELL DISTRIBUTION WIDTH (BEAKER) (test code = 412) 16.4 % 11.6-14.4 H PLATELET COUNT (BEAKER) (test code = 756) 1043 K/CU MM 150-450 H MEAN PLATELET VOLUME (BEAKER) (test code = 754) 8.0 fL 9.4-12 .4 L NUCLEATED RED BLOOD CELLS (BEAKER) (test code = 413) 0 /100 WBC 0 -0 NEUTROPHILS RELATIVE PERCENT (BEAKER) (test code = 429) 47 % LYMPHOCYTES RELATIVE PERCENT (BEAKER) (test code = 430) 41 % MONOCYTES RELATIVE PERCENT (BEAKER) (test code = 431) 8 % EOSINOPHILS RELATIVE PERCENT (BEAKER) (test code = 432) 3 % BASOPHILS RELATIVE PERCENT (BEAKER) (test code = 437) 0 % NEUTROPHILS ABSOLUTE COUNT (BEAKER) (test code = 670) 4.48 K/ L 1.78-5.38 LYMPHOCYTES ABSOLUTE COUNT (BEAKER) (test code = 414) 3.98 K/ L 1.32-3.57 H MONOCYTES ABSOLUTE COUNT (BEAKER) (test code = 415) 0.79 K/ L 0. 30-0.82 EOSINOPHILS ABSOLUTE COUNT (BEAKER) (test code = 416) 0.25 K/ L 0.04-0.54 BASOPHILS ABSOLUTE COUNT (BEAKER) (test code = 417) 0.04 K/ L 0. 01-0.08 IMMATURE GRANULOCYTES-RELATIVE PERCENT (BEAKER) (test code = 2801) 1 % 0-1 POCT-GLUCOSE [id number] 07:35:00* Test Item Value Reference Range Interpretation Comments POC-GLUCOSE METER (BEAKER) (test code = 1538) 133 mg/dL 70-110 H : TESTED AT [address], [address]: Systems Project Manager/Purchase Price Analyst ID = [id number] for Ana Vincent BASIC METABOLIC [id number] 07:08:00* Test Item Value Reference Range Interpretation Comments SODIUM (BEAKER) (test code = 381) 136 meq/L 136-145 POTASSIUM (BEAKER) (test code = 379) 4.1 meq/L 3.5-5.1 CHLORIDE (BEAKER) (test code = 382) 101 meq/L 98-107 CO2 (BEAKER) (test code = 355) 25 meq/L 22-29 BLOOD UREA NITROGEN (BEAKER) (test code = 354) 15 mg/dL 7-21 CREATININE (BEAKER) (test code = 358) 0.68 mg/dL 0.57-1.25 GLUCOSE RANDOM (BEAKER) (test code = 652) 145 mg/dL 70-105 H CALCIUM (BEAKER) (test code = 697) 8.8 mg/dL 8.4-10.2 EGFR (BEAKER) (test code = 1092) 131 mL/min/1.73 sq m ESTIMATED GFR IS NOT ACCURATE CREATININE CLEARANCE IN PREDICTING GLOMERULAR FILTRATION RATE. ESTIMATED GFR IS NOT APPLICABLE FOR DIALYSIS PATIENTS. Systems Project Manager ID - PIAYA LPOCT-GLUCOSE [id number] 21:12:00* Test Item Value Reference Range Interpretation Comments POC-GLUCOSE METER (BEAKER) (test code = 1538) 119 mg/dL 70-110 H : TESTED AT [address], [address]: Systems Project Manager/Purchase Price Analyst ID = [id number] for ENRIKE COLLINS POCT-GLUCOSE [id number] 16:58:00* Test Item Value Reference Range Interpretation Comments POC-GLUCOSE METER (BEAKER) (test code = 1538) 177 mg/dL 70-110 H : TESTED AT [address], [address]: Systems Project Manager/Purchase Price Analyst ID = [id number] for QUEEN MOLINA POCT-GLUCOSE [id number] 11:55:00* Test Item Value Reference Range Interpretation Comments POC-GLUCOSE METER (BEAKER) (test code = 1538) 121 mg/dL 70-110 H : TESTED AT [address], [address]: Systems Project Manager/Purchase Price Analyst ID = [id number] for QUEEN MOLINA CBC W/PLT COUNT & AUTO [id number] 10:06:00* Test Item Value Reference Range Interpretation Comments WHITE BLOOD CELL COUNT (BEAKER) (test code = 775) 9.6 K/ L 3.5- 10.5 RED BLOOD CELL COUNT (BEAKER) (test code = 761) 3.89 M/ L 4.63-6 .08 L HEMOGLOBIN (BEAKER) (test code = 410) 9.5 GM/DL 13.7-17.5 L HEMATOCRIT (BEAKER) (test code = 411) 31.9 % 40.1-51.0 L MEAN CORPUSCULAR VOLUME (BEAKER) (test code = 753) 82.0 fL 79. 0-92.2 MEAN CORPUSCULAR HEMOGLOBIN (BEAKER) (test code = 751) 24.4 pg 25.7-32.2 L MEAN CORPUSCULAR HEMOGLOBIN CONC (BEAKER) (test code = 752) 29.8 GM/DL 32.3-36.5 L RED CELL DISTRIBUTION WIDTH (BEAKER) (test code = 412) 16.3 % 11.6-14.4 H PLATELET COUNT (BEAKER) (test code = 756) 1005 K/CU MM 150-450 H MEAN PLATELET VOLUME (BEAKER) (test code = 754) 8.1 fL 9.4-12 .4 L NUCLEATED RED BLOOD CELLS (BEAKER) (test code = 413) 0 /100 WBC 0 -0 NEUTROPHILS RELATIVE PERCENT (BEAKER) (test code = 429) 56 % LYMPHOCYTES RELATIVE PERCENT (BEAKER) (test code = 430) 33 % MONOCYTES RELATIVE PERCENT (BEAKER) (test code = 431) 8 % EOSINOPHILS RELATIVE PERCENT (BEAKER) (test code = 432) 2 % BASOPHILS RELATIVE PERCENT (BEAKER) (test code = 437) 1 % NEUTROPHILS ABSOLUTE COUNT (BEAKER) (test code = 670) 5.39 K/ L 1.78-5.38 H LYMPHOCYTES ABSOLUTE COUNT (BEAKER) (test code = 414) 3.12 K/ L 1.32-3.57 MONOCYTES ABSOLUTE COUNT (BEAKER) (test code = 415) 0.76 K/ L 0. 30-0.82 EOSINOPHILS ABSOLUTE COUNT (BEAKER) (test code = 416) 0.21 K/ L 0.04-0.54 BASOPHILS ABSOLUTE COUNT (BEAKER) (test code = 417) 0.05 K/ L 0. 01-0.08 IMMATURE GRANULOCYTES-RELATIVE PERCENT (BEAKER) (test code = 2801) 1 % 0-1 WOUND CULTURE + GRAM [id number] 08:37:00* Test Item Value Reference Range Interpretation Comments CULTURE (BEAKER) (test code = 1095) METHICILLIN RESISTANT ST APHYLOCOCCUS AUREUS A 4+ Methicillin resistant Sta phylococcus aureus Clindamycin (test code = 10) S Erythromycin (test code = 4) R Linezolid (test code = 40) S Nitrofurantoin (test code = 23) S Oxacillin (test code = 14) R Rifampin (test code = 43) S Tetracycline (test code = 2) S Trimethoprim + Sulfamethoxazole (test code = 47) S Vancomycin (test code = 13) S GRAM STAIN RESULT (BEAKER) (test code = 1123) 1+ WBCs GRAM STAIN RESULT (BEAKER) (test code = 932935) 1+ gram positive ro ds GRAM STAIN RESULT (BEAKER) (test code = 334066) 4+ gram posi tive cocci in pairs GRAM STAIN RESULT (BEAKER) (test code = 917788) 1+ gra m positive cocci in clusters WOUND CULTURE + GRAM [id number] 08:36:00* Test Item Value Reference Range Interpretation Comments CULTURE (BEAKER) (test code = 1095) A 4+ Same organism has been isolated from cultures(s) of the same body site and collection date. Repeat identification and susceptibility testing performed only after consultation with the clinical microbiology laboratory.Refer to previous culture ofStaphylococcus aureus GRAM STAIN RESULT (BEAKER) (test code = 1123) 1+ WBCs GRAM STAIN RESULT (BEAKER) (test code = 023406) 2+ gram variable coccobacilli GRAM STAIN RESULT (BEAKER) (test code = 640800) 1+ gra m positive cocci in pairs and clusters 4+ Skin floraPOCT-GLUCOSE [id number] 08:05:00* Test Item Value Reference Range Interpretation Comments POC-GLUCOSE METER (BEAKER) (test code = 1538) 179 mg/dL 70-110 H : TESTED AT [facility] [address] [facility], [address]: Systems Project Manager/Purchase Price Analyst ID = [id number] for FUNMILAYO PEREIRA BASIC METABOLIC [id number] 05:59:00* Test Item Value Reference Range Interpretation Comments SODIUM (BEAKER) (test code = 381) 138 meq/L 136-145 POTASSIUM (BEAKER) (test code = 379) 4.5 meq/L 3.5-5.1 CHLORIDE (BEAKER) (test code = 382) 103 meq/L 98-107 CO2 (BEAKER) (test code = 355) 28 meq/L 22-29 BLOOD UREA NITROGEN (BEAKER) (test code = 354) 12 mg/dL 7-21 CREATININE (BEAKER) (test code = 358) 0.75 mg/dL 0.57-1.25 GLUCOSE RANDOM (BEAKER) (test code = 652) 251 mg/dL 70-105 H CALCIUM (BEAKER) (test code = 697) 8.6 mg/dL 8.4-10.2 EGFR (BEAKER) (test code = 1092) 117 mL/min/1.73 sq m ESTIMATED GFR IS NOT ACCURATE CREATININE CLEARANCE IN PREDICTING GLOMERULAR FILTRATION RATE. ESTIMATED GFR IS NOT APPLICABLE FOR DIALYSIS PATIENTS. Systems Project Manager ID - PIAYA LPOCT-GLUCOSE [id number] 20:59:00* Test Item Value Reference Range Interpretation Comments POC-GLUCOSE METER (BEAKER) (test code = 1538) 197 mg/dL 70-110 H : TESTED AT [address], [address]: Systems Project Manager/Purchase Price Analyst ID = [id number] for DANISHA SIDHU POCT-GLUCOSE [id number] 17:21:00* Test Item Value Reference Range Interpretation Comments POC-GLUCOSE METER (BEAKER) (test code = 1538) 220 mg/dL 70-110 H : TESTED AT [address], [address]: Systems Project Manager/Purchase Price Analyst ID = [id number] for RUTH ROSA POCT-GLUCOSE [id number] 13:11:00* Test Item Value Reference Range Interpretation Comments POC-GLUCOSE METER (BEAKER) (test code = 1538) 131 mg/dL 70-110 H : TESTED AT [address], [address]: Systems Project Manager/Purchase Price Analyst ID = [id number] for SHELLEY, RUTH POCT-GLUCOSE [id number] 11:51:00* Test Item Value Reference Range Interpretation Comments POC-GLUCOSE METER (BEAKER) (test code = 1538) 202 mg/dL 70-110 H : TESTED AT [place] [id number] [facility], [address]: Systems Project Manager/Purchase Price Analyst ID = [id number] for RUTH ROSA POCT-GLUCOSE [id number] 11:09:00* Test Item Value Reference Range Interpretation Comments POC-GLUCOSE METER (BEAKER) (test code = 1538) 258 mg/dL 70-110 H : TESTED AT [address], [address]: Systems Project Manager/Purchase Price Analyst ID = [id number] for MIRIAM SANTACRUZ BASIC METABOLIC [id number] 10:53:00* Test Item Value Reference Range Interpretation Comments SODIUM (BEAKER) (test code = 381) 134 meq/L 136-145 L POTASSIUM (BEAKER) (test code = 379) 4.3 meq/L 3.5-5.1 CHLORIDE (BEAKER) (test code = 382) 98 meq/L 98-107 CO2 (BEAKER) (test code = 355) 27 meq/L 22-29 BLOOD UREA NITROGEN (BEAKER) (test code = 354) 14 mg/dL 7-21 CREATININE (BEAKER) (test code = 358) 0.71 mg/dL 0.57-1.25 GLUCOSE RANDOM (BEAKER) (test code = 652) 271 mg/dL 70-105 H CALCIUM (BEAKER) (test code = 697) 8.6 mg/dL 8.4-10.2 EGFR (BEAKER) (test code = 1092) 124 mL/min/1.73 sq m ESTIMATED GFR IS NOT ACCURATE CREATININE CLEARANCE IN PREDICTING GLOMERULAR FILTRATION RATE. ESTIMATED GFR IS NOT APPLICABLE FOR DIALYSIS PATIENTS. Systems Project Manager ID - TIM WPOCT-GLUCOSE [id number] 07:49:00* Test Item Value Reference Range Interpretation Comments POC-GLUCOSE METER (BEAKER) (test code = 1538) 155 mg/dL 70-110 H : TESTED AT [address], [address]: Systems Project Manager/Purchase Price Analyst ID = [id number] for RUTH ROSA POCT-GLUCOSE [id number] 20:37:00* Test Item Value Reference Range Interpretation Comments POC-GLUCOSE METER (BEAKER) (test code = 1538) 194 mg/dL 70-110 H : TESTED AT [address] [place], [address]: Systems Project Manager/Purchase Price Analyst ID = [id number] for MAGDALENA ROSALES POCT-GLUCOSE [id number] 16:57:00* Test Item Value Reference Range Interpretation Comments POC-GLUCOSE METER (BEAKER) (test code = 1538) 137 mg/dL 70-110 H : TESTED AT [facility] [address] [facility], [address]: Systems Project Manager/Purchase Price Analyst ID = [id number] for RUTH ROSA Blood Culture Panel([employer])2020-01-20 13:11:00* Test Item Value Reference Range Interpretation Comments LISTERIA MONOCYTOGENES (test code = 36716-8) Not detected Not detec sheri STAPHYLOCOCCUS (test code = 87908-7) Detected Not detected A Coagulase negative Staph species (CoNS)- methicillin susceptibleFirst-line therapy: Cefazolin or Oxacillin (Oxacillin preferred if SADDLE MECHANIC involvement) MecA NOT DETECTEDPossible contamination. The likelihood of pathogenicity is increased if the organism is observed in multiple blood cultures obtained from separate venipunctures.Reference Range: Not Detected STAPHYLOCOCCUS AUREUS (test code = 86738-2) Not detected Not detect ed Streptococcus (test code = 03096-9) Not detected Not detected STREPTOCOCCUS AGALACTIAE (GROUP B) (test code = 12007-9) Not detected Not detected STREPTOCOCCUS PNEUMONIAE (test code = 13210-8) Not detected Not det ected Streptococcus pyogenes (Group A) (test code = 27536-5) Not d etected Not detected ACINETOBACTER BAUMANNII (test code = 77286-5) Not detected Not dete cted HAEMOPHILUS INFLUENZAE (test code = 90073-1) Not detected Not detec sheri NEISSERIA MENINGITIDIS (test code = 40375-9) Not detected Not detec sheri ENTEROBACTERIACEAE (test code = 99346-0) Not detected Not detected ENTEROBACTER CLOACOE COMPLEX (test code = 74557-8) Not detected Not detected KLEBSIELLA OXYTOCA (test code = 22905-7) Not detected Not detected KLEBSIELLA PNEUMONIAE (test code = 29040-1) Not detected Not detect ed PROTEUS (test code = 41198-2) Not detected Not detected SERRATIA MARCESCENS (test code = 21794-3) Not detected Not detected SHIRA ALBICANS (test code = 04845-0) Not detected Not detected SHIRA GLABRATA (test code = 23351-0) Not detected Not detected SHIRA KRUSEI (test code = 13700-9) Not detected Not detected SHIRA PARAPSILOSIS (test code = 52968-6) Not detected Not detecte d SHIRA TROPICALIS (test code = 97241-3) Not detected Not detected ESCHERICHIA COLI (test code = 97013-7) Not detected Not detected METHICILLIN-RESISTANCE GENE (test code = 62163-1) Not detected Not detected VANCOMYCIN-RESISTANCE GENE (test code = 06302-4) CARBAPENEM-RESISTANCE GENE (test code = 23309-7) ENTEROCOCCUS (test code = 31010-9) Not detected Not detected PSEUDOMONAS AERUGINOSA (test code = 06425-6) Not detected Not detec sheri TODD (test code = TODD) Other bacteria and resistanc e markers not targeted by this PCR panel cannot be excluded; therefore clinical correlation and follow up of serology, culture results, and other molecular studies is required. The results are not intended to be used as the sole means for clinical diagnosis or patient management decisions. This sample was tested at the [facility] Molecular Diagnostics Laboratory using the Znode Blood Culture ID Panel. It is FDA cleared and has been verified and approved by the [facility] Molecular Diagnostics Laboratory for clinical use. This laboratory is CLIA-certified and [employer] (CAP)-accredited to perform high complexity testing. Lab Interpretation (test code = 54053-9) [facility]normal [facility] [id number] 13:11:00* Test Item Value Reference Range Interpretation Comments LISTERIA MONOCYTOGENES (test code = 3001867) Not detected Not detec sheri STAPHYLOCOCCUS (test code = 3410669) Detected Not detected A Coagulase negative Staph species (CoNS)- methicillin susceptibleFirst-line therapy: Cefazolin or Oxacillin (Oxacillin preferred if SADDLE MECHANIC involvement) MecA NOT DETECTEDPossible contamination. The likelihood of pathogenicity is increased if the organism is observed in multiple blood cultures obtained from separate venipunctures.Reference Range: Not Detected STAPHYLOCOCCUS AUREUS (test code = 6978960) Not detected Not detect ed STREPTOCOCCUS (test code = 1766929) Not detected Not detected STREPTOCOCCUS AGALACTIAE (GROUP B) (test code = 4588364) Not detected Not detected STREPTOCOCCUS PNEUMONIAE (test code = 8850881) Not detected Not det ected STREPTOCOCCUS PYOGENES (GROUP A) (test code = 0100765) Not d etected Not detected ACINETOBACTER BAUMANNII (test code = 9216679) Not detected Not dete cted HAEMOPHILUS INFLUENZAE (test code = 2464196) Not detected Not detec sheri NEISSERIA MENINGITIDIS (test code = 1854683) Not detected Not detec sheri ENTEROBACTERIACEAE (test code = 1327498) Not detected Not detected ENTEROBACTER CLOACOE COMPLEX (test code = 0651154) Not detected Not detected KLEBSIELLA OXYTOCA (test code = 9764869) Not detected Not detected KLEBSIELLA PNEUMONIAE (test code = 1650) Not detected Not detected PROTEUS (test code = 3188486) Not detected Not detected SERRATIA MARCESCENS (test code = 0412757) Not detected Not detected SHIRA ALBICANS (test code = 3569054) Not detected Not detected SHIRA GLABRATA (test code = 7054333) Not detected Not detected SHIRA KRUSEI (test code = 9228601) Not detected Not detected SHIRA PARAPSILOSIS (test code = 0785620) Not detected Not detecte d SHIRA TROPICALIS (test code = 7629881) Not detected Not detected ESCHERICHIA COLI (test code = 8083769) Not detected Not detected METHICILLIN-RESISTANCE GENE (test code = 4991160) Not detected Not detected VANCOMYCIN-RESISTANCE GENE (test code = 1273002) CARBAPENEM-RESISTANCE GENE (test code = 6929675) ENTEROCOCCUS-BEAKER (test code = 0833139) Not detected Not detected PSEUDOMONAS AERUGINOSA-BEAKER (test code = 1059008) Not detected No t detected Other bacteria and resistance markers not targeted by this PCR panel cannot be e xcluded; therefore clinical correlation and follow up of serology, culture resul ts, and other molecular studies is required. The results are not intended to be used as the sole means for clinical diagnosis or patient management decisions. T his sample was tested at the [facility] Molecular Diagnostics Laboratory using the DecideQuick FilmArray Blood Culture ID Panel. It is FDA cleared and has been verified and approved by the [facility] Molecular Diagnostics Laboratory for clinical use. Thi s laboratory is CLIA-certified and [employer] (CAP)-accred ited to perform high complexity testing.POCT-GLUCOSE [id number] 12:21:00* Test Item Value Reference Range Interpretation Comments POC-GLUCOSE METER (BEAKER) (test code = 1538) 241 mg/dL 70-110 H : TESTED AT [facility] [address] [place] [address], [address]: Systems Project Manager/Purchase Price Analyst ID = [id number] for RUTH ROSA Hemoglobin [id number] 08:31:00* Test Item Value Reference Range Interpretation Comments Hemoglobin A1C (test code = 4548-4) 8.0 % 4.3-6.1 H Lab Interpretation (test code = 01418-5) [facility]normal [facility] [id number] 08:31:00* Test Item Value Reference Range Interpretation Comments HEMOGLOBIN A1C (BEAKER) (test code = 368) 8.0 % 4.3-6.1 H POCT-GLUCOSE [id number] 08:29:00* Test Item Value Reference Range Interpretation Comments POC-GLUCOSE METER (BEAKER) (test code = 1538) 261 mg/dL 70-110 H : Notified RN/MD: TESTED AT [address], [address]: Systems Project Manager/Purchase Price Analyst ID = [id number] for SCARLET OFE POCT-GLUCOSE [id number] 22:07:00* Test Item Value Reference Range Interpretation Comments POC-GLUCOSE METER (BEAKER) (test code = 1538) 319 mg/dL 70-110 H : TESTED AT [address], [address]: Systems Project Manager/Purchase Price Analyst ID = [id number] for MAGDALENA ROSALES POCT-GLUCOSE [id number] 18:30:00* Test Item Value Reference Range Interpretation Comments POC-GLUCOSE METER (BEAKER) (test code = 1538) 303 mg/dL 70-110 H : TESTED AT [address], [address]: Systems Project Manager/Purchase Price Analyst ID = [id number] for HAFSA NELSON SARS-COV2/RT-PCR ([facility])2020-01-19 17:19:00* Test Item Value Reference Range Interpretation Comments SARS-COV2/RT-PCR (test code = 4674854) Not Detected Not Detected, N egative SARS-COV-2 PERFORMING LAB (test code = 3127632) [facility] Negative results do not preclude SARS-CoV-2 infection and should not be used as the sole basis for patient management decisions. Negative results must be combin ed with clinical observations, patient history, and epidemiological information. A false negative result may occur if a specimen is improperly collected, transp orted or handled.The limit of detection for this assay is 250 copies/mL.This [facility] CoV-2 test is a rapid, real-time RT-PCR test intended for the qualitative dete ction of nucleic acid from SARS-CoV-2 in a nasopharyngeal swab specimen collecte d from individuals suspected of COVID-19 by their healthcare provider.This test has not been Food and Drug Administration (FDA) cleared or approved and has been authorized by FDA under an Emergency Use Authorization (EUA). This EUA will be effective until the declaration that circumstances exist justifying the authoriz ation of the emergency use of in vitro diagnostic tests for detection and/or lisa gnosis of COVID-19 is terminated under Section 564(b)(2) of the Act or the EUA i s revoked under Section 564(g) of the Act.Fact Sheet for Healthcare Providers:ht tps://www.[employer]/Documents/Xpert%20Xpress%20SARS%20CoV-2/Fact%20Sheets/302 3802%30UMJB-GFD-0%20HEALTHCARE%20PROVIDERS%20FACT%20SHEET.pdfFact Sheet for Heal thcare Patients:https://www.[employer]/Documents/Xpert%20Xpress%20SARS%20CoV-2/ Fact%20Sheets/3023801%48OSTZ-OMC-8%20PATIENT%20FACT%20SHEET.pdfPerforming Labor atory:[facility] [place] [address] URINALYSIS W/ REFLEX URINE [id number] 14:15:00* Test Item Value Reference Range Interpretation Comments COLOR (BEAKER) (test code = 470) Yellow CLARITY (BEAKER) (test code = 469) Clear SPECIFIC GRAVITY UA (BEAKER) (test code = 468) 1.030 1.001-1 .035 PH UA (BEAKER) (test code = 467) 6.5 5.0-8.0 PROTEIN UA (BEAKER) (test code = 464) 70 mg/dL Negative A GLUCOSE UA (BEAKER) (test code = 365) 500 mg/dL Negative A KETONES UA (BEAKER) (test code = 371) Negative Negative BILIRUBIN UA (BEAKER) (test code = 462) Negative Negative BLOOD UA (BEAKER) (test code = 461) Small Negative A NITRITE UA (BEAKER) (test code = 465) Negative Negative LEUKOCYTE ESTERASE UA (BEAKER) (test code = 466) Trace Negat marianne A UROBILINOGEN UA (BEAKER) (test code = 463) 2.0 mg/dL 0.2-1.0 H RBC UA (BEAKER) (test code = 519) 24 /HPF WBC UA (BEAKER) (test code = 520) 10 /HPF MUCUS (BEAKER) (test code = 1574) Rare SQUAMOUS EPITHELIAL (BEAKER) (test code = 516) < /HPF HYALINE CASTS (BEAKER) (test code = 514) 1 /LPF YEAST (BEAKER) (test code = 1585) Rare SOURCE(BEAKER) (test code = 2795) Systems Project Manager ID - [auto]Systems Project Manager ID - techHEPATIC FUNCTION [id number] 13:38:00 * Test Item Value Reference Range Interpretation Comments TOTAL PROTEIN (BEAKER) (test code = 770) 8.3 gm/dL 6.0-8.3 ALBUMIN (BEAKER) (test code = 1145) 3.1 g/dL 3.5-5.0 L BILIRUBIN TOTAL (BEAKER) (test code = 377) 0.2 mg/dL 0.2-1.2 BILIRUBIN DIRECT (BEAKER) (test code = 706) 0.2 mg/dL 0.1-0.5 ALKALINE PHOSPHATASE (BEAKER) (test code = 346) 491 U/L 40-150 H AST (SGOT) (BEAKER) (test code = 353) 16 U/L 5-34 ALT (SGPT) (BEAKER) (test code = 347) 38 U/L 6-55 Systems Project Manager ID - EMERSONBASIC METABOLIC [id number] 13:38:00* Test Item Value Reference Range Interpretation Comments SODIUM (BEAKER) (test code = 381) 135 meq/L 136-145 L POTASSIUM (BEAKER) (test code = 379) 4.4 meq/L 3.5-5.1 CHLORIDE (BEAKER) (test code = 382) 97 meq/L 98-107 L CO2 (BEAKER) (test code = 355) 28 meq/L 22-29 BLOOD UREA NITROGEN (BEAKER) (test code = 354) 14 mg/dL 7-21 CREATININE (BEAKER) (test code = 358) 0.86 mg/dL 0.57-1.25 GLUCOSE RANDOM (BEAKER) (test code = 652) 363 mg/dL 70-105 H CALCIUM (BEAKER) (test code = 697) 8.8 mg/dL 8.4-10.2 EGFR (BEAKER) (test code = 1092) 100 mL/min/1.73 sq m ESTIMATED GFR IS NOT ACCURATE CREATININE CLEARANCE IN PREDICTING GLOMERULAR FILTRATION RATE. ESTIMATED GFR IS NOT APPLICABLE FOR DIALYSIS PATIENTS. Systems Project Manager ID - IVANA, CHEST, 1 VIEW, NON [id number] 13:33:00Reason for exam:->FEVERShould this be performed at the bedside?->YesFINAL REPORT INDICATION: FEVER COMPARISON: January 03, 2020 TECHNIQUE: Single frontal view of the chest. IMPRESSION:Lungs and pleura: Small right effusion and associated relaxation atelectasis. Left lung is clear.Heart and mediastinum: Normal heart size. Unremarkable mediastinal contours.Osseous structures: No acute abnormality.Other: None. Signed: JR Kaufman Robert MDRepcordell Verified Date/Time: 01/19/2020 13:33:06 Reading Location: [facility] Reading Room Electronically signed by: KARIE KAUFMAN on 09/2019 01:33 PM LACTIC ACID, [id number] 13:30:00* Test Item Value Reference Range Interpretation Comments LACTATE BLOOD VENOUS (2) (BEAKER) (test code = 2872) 1.76 mmol/L 0 .50-2.20 Systems Project Manager ID - Christopher, [id number] 13:28:00* Test Item Value Reference Range Interpretation Comments Ketones, Blood (test code = 1103) 0.0 mmol/L <0.4 Lab Interpretation (test code = 24264-8) Normal [facility], [id number] 13:28:00* Test Item Value Reference Range Interpretation Comments KETONES, BLOOD (BEAKER) (test code = 1103) 0.0 mmol/L <0.4 CBC W/PLT COUNT & AUTO [id number] 13:27:00* Test Item Value Reference Range Interpretation Comments WHITE BLOOD CELL COUNT (BEAKER) (test code = 775) 16.8 K/ L 3.5- 10.5 H RED BLOOD CELL COUNT (BEAKER) (test code = 761) 3.67 M/ L 4.63-6 .08 L HEMOGLOBIN (BEAKER) (test code = 410) 9.3 GM/DL 13.7-17.5 L HEMATOCRIT (BEAKER) (test code = 411) 30.6 % 40.1-51.0 L MEAN CORPUSCULAR VOLUME (BEAKER) (test code = 753) 83.4 fL 79. 0-92.2 MEAN CORPUSCULAR HEMOGLOBIN (BEAKER) (test code = 751) 25.3 pg 25.7-32.2 L MEAN CORPUSCULAR HEMOGLOBIN CONC (BEAKER) (test code = 752) 30.4 GM/DL 32.3-36.5 L RED CELL DISTRIBUTION WIDTH (BEAKER) (test code = 412) 16.7 % 11.6-14.4 H PLATELET COUNT (BEAKER) (test code = 756) 832 K/CU MM 150-450 H MEAN PLATELET VOLUME (BEAKER) (test code = 754) 8.5 fL 9.4-12 .4 L NUCLEATED RED BLOOD CELLS (BEAKER) (test code = 413) 0 /100 WBC 0 -0 NEUTROPHILS RELATIVE PERCENT (BEAKER) (test code = 429) 70 % LYMPHOCYTES RELATIVE PERCENT (BEAKER) (test code = 430) 21 % MONOCYTES RELATIVE PERCENT (BEAKER) (test code = 431) 8 % EOSINOPHILS RELATIVE PERCENT (BEAKER) (test code = 432) 1 % BASOPHILS RELATIVE PERCENT (BEAKER) (test code = 437) 0 % NEUTROPHILS ABSOLUTE COUNT (BEAKER) (test code = 670) 11.67 K/ L 1.78-5.38 H LYMPHOCYTES ABSOLUTE COUNT (BEAKER) (test code = 414) 3.48 K/ L 1.32-3.57 MONOCYTES ABSOLUTE COUNT (BEAKER) (test code = 415) 1.31 K/ L 0. 30-0.82 H EOSINOPHILS ABSOLUTE COUNT (BEAKER) (test code = 416) 0.15 K/ L 0.04-0.54 BASOPHILS ABSOLUTE COUNT (BEAKER) (test code = 417) 0.04 K/ L 0. 01-0.08 IMMATURE GRANULOCYTES-RELATIVE PERCENT (BEAKER) (test code = 2801) 1 % 0-1 Blood gas, [id number] 13:26:00* Test Item Value Reference Range Interpretation Comments pH, Marcos (test code = 2746-6) 7.41 7.32-7.42 pCO2, Marcos (test code = 755) 48 41- 51 mmHg pO2, Marcos (test code = 2705-2) 50 25- 40 mmHg H O2 Sat, Marcos (test code = 2711-0) 82.8 % 40-70 H HCO3, Marcos (test code = 89153-9) 30 mmol/L 21-29 H Base Excess, Marcos (test code = 1927-3) 4.8 mmol/L -2-3 H Patient Temperature (test code = 8310-5) 38.3 C FIO2 (test code = 1819) 21 % Lab Interpretation (test code = 16632-6) [facility]normal [facility], [id number] 13:26:00* Test Item Value Reference Range Interpretation Comments PH VENOUS (BEAKER) (test code = 701) 7.41 7.32-7.42 PCO2 VENOUS (BEAKER) (test code = 755) 48 mmHg 41-51 PO2 VENOUS (BEAKER) (test code = 702) 50 mmHg 25-40 H O2 SATURATION VENOUS (BEAKER) (test code = 703) 82.8 % 40.0-7 0.0 H HCO3 VENOUS (BEAKER) (test code = 705) 30 mmol/L 21-29 H BASE EXCESS VENOUS (BEAKER) (test code = 704) 4.8 mmol/L -2.0-3.0 H PATIENT TEMPERATURE (BEAKER) (test code = 1818) 38.3 C FIO2 (BEAKER) (test code = 1819) 21.0 % POCT-GLUCOSE [id number] 11:31:00* Test Item Value Reference Range Interpretation Comments POC-GLUCOSE METER (BEAKER) (test code = 1538) 144 mg/dL 70-110 H : TESTED AT [place] [id number] [facility], [address]: Systems Project Manager/Purchase Price Analyst ID = [id number] for ROXANNE HOANG POCT-GLUCOSE [id number] 11:30:00* Test Item Value Reference Range Interpretation Comments POC-GLUCOSE METER (BEAKER) (test code = 1538) 122 mg/dL 70-110 H : TESTED AT [address], [address]: Systems Project Manager/Purchase Price Analyst ID = [id number] for OMAIRA LOBATO POCT-GLUCOSE [id number] 11:30:00* Test Item Value Reference Range Interpretation Comments POC-GLUCOSE METER (BEAKER) (test code = 1538) 110 mg/dL 70-110 : TESTED AT [address], [address]: Systems Project Manager/Purchase Price Analyst ID = [id number] for OMAIRA LOBATO POCT-GLUCOSE [id number] 11:30:00* Test Item Value Reference Range Interpretation Comments POC-GLUCOSE METER (BEAKER) (test code = 1538) 128 mg/dL 70-110 H : TESTED AT [address], [address]: Systems Project Manager/Purchase Price Analyst ID = [id number] for OMAIRA LOBATO POCT-GLUCOSE [id number] 11:28:00* Test Item Value Reference Range Interpretation Comments POC-GLUCOSE METER (BEAKER) (test code = 1538) 176 mg/dL 70-110 H : TESTED AT [address], [address]: Systems Project Manager/Purchase Price Analyst ID = [id number] for ROXANNE HOANG POCT-GLUCOSE [id number] 08:29:00* Test Item Value Reference Range Interpretation Comments POC-GLUCOSE METER (BEAKER) (test code = 1538) 185 mg/dL 70-110 H : TESTED AT [address], [address]: Systems Project Manager/Purchase Price Analyst ID = [id number] for VIRIDIANA SANTIZO CBC W/PLT COUNT & AUTO [id number] 06:09:00* Test Item Value Reference Range Interpretation Comments WHITE BLOOD CELL COUNT (BEAKER) (test code = 775) 10.7 K/ L 3.5- 10.5 H RED BLOOD CELL COUNT (BEAKER) (test code = 761) 4.66 M/ L 4.63-6 .08 HEMOGLOBIN (BEAKER) (test code = 410) 11.8 GM/DL 13.7-17.5 L HEMATOCRIT (BEAKER) (test code = 411) 38.7 % 40.1-51.0 L MEAN CORPUSCULAR VOLUME (BEAKER) (test code = 753) 83.0 fL 79. 0-92.2 MEAN CORPUSCULAR HEMOGLOBIN (BEAKER) (test code = 751) 25.3 pg 25.7-32.2 L MEAN CORPUSCULAR HEMOGLOBIN CONC (BEAKER) (test code = 752) 30.5 GM/DL 32.3-36.5 L RED CELL DISTRIBUTION WIDTH (BEAKER) (test code = 412) 18.9 % 11.6-14.4 H PLATELET COUNT (BEAKER) (test code = 756) 457 K/CU MM 150-450 H MEAN PLATELET VOLUME (BEAKER) (test code = 754) 8.2 fL 9.4-12 .4 L NUCLEATED RED BLOOD CELLS (BEAKER) (test code = 413) 0 /100 WBC 0 -0 NEUTROPHILS RELATIVE PERCENT (BEAKER) (test code = 429) 44 % LYMPHOCYTES RELATIVE PERCENT (BEAKER) (test code = 430) 42 % MONOCYTES RELATIVE PERCENT (BEAKER) (test code = 431) 11 % EOSINOPHILS RELATIVE PERCENT (BEAKER) (test code = 432) 2 % BASOPHILS RELATIVE PERCENT (BEAKER) (test code = 437) 1 % NEUTROPHILS ABSOLUTE COUNT (BEAKER) (test code = 670) 4.74 K/ L 1.78-5.38 LYMPHOCYTES ABSOLUTE COUNT (BEAKER) (test code = 414) 4.47 K/ L 1.32-3.57 H MONOCYTES ABSOLUTE COUNT (BEAKER) (test code = 415) 1.16 K/ L 0. 30-0.82 H EOSINOPHILS ABSOLUTE COUNT (BEAKER) (test code = 416) 0.22 K/ L 0.04-0.54 BASOPHILS ABSOLUTE COUNT (BEAKER) (test code = 417) 0.06 K/ L 0. 01-0.08 IMMATURE GRANULOCYTES-RELATIVE PERCENT (BEAKER) (test code = 2801) 0 % 0-1 BASIC METABOLIC [id number] 03:02:00* Test Item Value Reference Range Interpretation Comments SODIUM (BEAKER) (test code = 381) 135 meq/L 136-145 L POTASSIUM (BEAKER) (test code = 379) 4.1 meq/L 3.5-5.1 Specimen slightly hemolyzed CHLORIDE (BEAKER) (test code = 382) 104 meq/L 98-107 CO2 (BEAKER) (test code = 355) 22 meq/L 22-29 BLOOD UREA NITROGEN (BEAKER) (test code = 354) 32 mg/dL 7-21 H CREATININE (BEAKER) (test code = 358) 0.67 mg/dL 0.57-1.25 Specimen slightly hemolyzed GLUCOSE RANDOM (BEAKER) (test code = 652) 151 mg/dL 70-105 H CALCIUM (BEAKER) (test code = 697) 9.3 mg/dL 8.4-10.2 EGFR (BEAKER) (test code = 1092) 133 mL/min/1.73 sq m ESTIMATED GFR IS NOT ACCURATE CREATININE CLEARANCE IN PREDICTING GLOMERULAR FILTRATION RATE. ESTIMATED GFR IS NOT APPLICABLE FOR DIALYSIS PATIENTS. Systems Project Manager ID - PIAYA LPOCT-GLUCOSE [id number] 17:04:00* Test Item Value Reference Range Interpretation Comments POC-GLUCOSE METER (BEAKER) (test code = 1538) 94 mg/dL 70-110 : TESTED AT [address], [address]: Systems Project Manager/Purchase Price Analyst ID = [id number] for Zoya Osorio POCT-GLUCOSE [id number] 12:37:00* Test Item Value Reference Range Interpretation Comments POC-GLUCOSE METER (BEAKER) (test code = 1538) 150 mg/dL 70-110 H : TESTED AT [address], [address]: Systems Project Manager/Purchase Price Analyst ID = [id number] for OMAIRA LOBATO POCT-GLUCOSE [id number] 08:31:00* Test Item Value Reference Range Interpretation Comments POC-GLUCOSE METER (BEAKER) (test code = 1538) 180 mg/dL 70-110 H : TESTED AT [address], [address]: Systems Project Manager/Purchase Price Analyst ID = [id number] for CHERYLE, OMAIRA POCT-GLUCOSE [id number] 17:40:00* Test Item Value Reference Range Interpretation Comments POC-GLUCOSE METER (BEAKER) (test code = 1538) 177 mg/dL 70-110 H : TESTED AT [address], [address]: Systems Project Manager/Purchase Price Analyst ID = [id number] for CHERYLE, OMAIRA POCT-GLUCOSE [id number] 12:33:00* Test Item Value Reference Range Interpretation Comments POC-GLUCOSE METER (BEAKER) (test code = 1538) 105 mg/dL 70-110 : TESTED AT [facility] [address] [facility], [address]: Systems Project Manager/Purchase Price Analyst ID = [id number] for OMAIRA LOBATO POCT-GLUCOSE [id number] 08:39:00* Test Item Value Reference Range Interpretation Comments POC-GLUCOSE METER (BEAKER) (test code = 1538) 165 mg/dL 70-110 H : TESTED AT [facility] [address] [facility], [address]: Systems Project Manager/Purchase Price Analyst ID = [id number] for OMAIRA LOBATO CBC W/PLT COUNT & AUTO [id number] 05:10:00* Test Item Value Reference Range Interpretation Comments WHITE BLOOD CELL COUNT (BEAKER) (test code = 775) 7.1 K/ L 3.5- 10.5 RED BLOOD CELL COUNT (BEAKER) (test code = 761) 4.23 M/ L 4.63-6 .08 L HEMOGLOBIN (BEAKER) (test code = 410) 10.6 GM/DL 13.7-17.5 L HEMATOCRIT (BEAKER) (test code = 411) 34.6 % 40.1-51.0 L MEAN CORPUSCULAR VOLUME (BEAKER) (test code = 753) 81.8 fL 79. 0-92.2 MEAN CORPUSCULAR HEMOGLOBIN (BEAKER) (test code = 751) 25.1 pg 25.7-32.2 L MEAN CORPUSCULAR HEMOGLOBIN CONC (BEAKER) (test code = 752) 30.6 GM/DL 32.3-36.5 L RED CELL DISTRIBUTION WIDTH (BEAKER) (test code = 412) 19.1 % 11.6-14.4 H PLATELET COUNT (BEAKER) (test code = 756) 386 K/CU MM 150-450 MEAN PLATELET VOLUME (BEAKER) (test code = 754) 8.3 fL 9.4-12 .4 L NUCLEATED RED BLOOD CELLS (BEAKER) (test code = 413) 0 /100 WBC 0 -0 NEUTROPHILS RELATIVE PERCENT (BEAKER) (test code = 429) 31 % LYMPHOCYTES RELATIVE PERCENT (BEAKER) (test code = 430) 54 % MONOCYTES RELATIVE PERCENT (BEAKER) (test code = 431) 12 % EOSINOPHILS RELATIVE PERCENT (BEAKER) (test code = 432) 3 % BASOPHILS RELATIVE PERCENT (BEAKER) (test code = 437) 1 % NEUTROPHILS ABSOLUTE COUNT (BEAKER) (test code = 670) 2.20 K/ L 1.78-5.38 LYMPHOCYTES ABSOLUTE COUNT (BEAKER) (test code = 414) 3.84 K/ L 1.32-3.57 H MONOCYTES ABSOLUTE COUNT (BEAKER) (test code = 415) 0.82 K/ L 0. 30-0.82 EOSINOPHILS ABSOLUTE COUNT (BEAKER) (test code = 416) 0.19 K/ L 0.04-0.54 BASOPHILS ABSOLUTE COUNT (BEAKER) (test code = 417) 0.04 K/ L 0. 01-0.08 IMMATURE GRANULOCYTES-RELATIVE PERCENT (BEAKER) (test code = 2801) 0 % 0-1 BASIC METABOLIC [id number] 05:03:00* Test Item Value Reference Range Interpretation Comments SODIUM (BEAKER) (test code = 381) 136 meq/L 136-145 POTASSIUM (BEAKER) (test code = 379) 3.8 meq/L 3.5-5.1 CHLORIDE (BEAKER) (test code = 382) 103 meq/L 98-107 CO2 (BEAKER) (test code = 355) 23 meq/L 22-29 BLOOD UREA NITROGEN (BEAKER) (test code = 354) 30 mg/dL 7-21 H CREATININE (BEAKER) (test code = 358) 0.69 mg/dL 0.57-1.25 GLUCOSE RANDOM (BEAKER) (test code = 652) 263 mg/dL 70-105 H CALCIUM (BEAKER) (test code = 697) 9.2 mg/dL 8.4-10.2 EGFR (BEAKER) (test code = 1092) 128 mL/min/1.73 sq m ESTIMATED GFR IS NOT ACCURATE CREATININE CLEARANCE IN PREDICTING GLOMERULAR FILTRATION RATE. ESTIMATED GFR IS NOT APPLICABLE FOR DIALYSIS PATIENTS. Systems Project Manager ID - PIAYA LPOCT-GLUCOSE [id number] 21:26:00* Test Item Value Reference Range Interpretation Comments POC-GLUCOSE METER (BEAKER) (test code = 1538) 155 mg/dL 70-110 H : TESTED AT [address], [address]: Systems Project Manager/Purchase Price Analyst ID = [id number] for YAAKOV NIECY POCT-GLUCOSE [id number] 17:41:00* Test Item Value Reference Range Interpretation Comments POC-GLUCOSE METER (BEAKER) (test code = 1538) 158 mg/dL 70-110 H : TESTED AT [address], [address]: Systems Project Manager/Purchase Price Analyst ID = [id number] for SUKHDEV, VIRIDIANA POCT-GLUCOSE [id number] 13:01:00* Test Item Value Reference Range Interpretation Comments POC-GLUCOSE METER (BEAKER) (test code = 1538) 148 mg/dL 70-110 H : TESTED AT [address], [address]: Systems Project Manager/Purchase Price Analyst ID = [id number] for SUKHDEV, VIRIDIANA POCT-GLUCOSE [id number] 08:24:00* Test Item Value Reference Range Interpretation Comments POC-GLUCOSE METER (BEAKER) (test code = 1538) 173 mg/dL 70-110 H : TESTED AT [address], [address]: Systems Project Manager/Purchase Price Analyst ID = [id number] for SUKHDEV, VIRIDIANA POCT-GLUCOSE [id number] 21:37:00* Test Item Value Reference Range Interpretation Comments POC-GLUCOSE METER (BEAKER) (test code = 1538) 158 mg/dL 70-110 H : TESTED AT [address], [address]: Systems Project Manager/Purchase Price Analyst ID = [id number] for FIDELIAU, NIECY POCT-GLUCOSE [id number] 17:41:00* Test Item Value Reference Range Interpretation Comments POC-GLUCOSE METER (BEAKER) (test code = 1538) 121 mg/dL 70-110 H : TESTED AT [address], [address]: Systems Project Manager/Purchase Price Analyst ID = [id number] for SUKHDEV, VIRIDIANA POCT-GLUCOSE [id number] 17:06:00* Test Item Value Reference Range Interpretation Comments POC-GLUCOSE METER (BEAKER) (test code = 1538) 185 mg/dL 70-110 H : TESTED AT [address], [address]: Systems Project Manager/Purchase Price Analyst ID = [id number] for SUKHDEV, VIRIDIANA POCT-GLUCOSE [id number] 07:50:00* Test Item Value Reference Range Interpretation Comments POC-GLUCOSE METER (BEAKER) (test code = 1538) 157 mg/dL 70-110 H : TESTED AT [address], [address]: Systems Project Manager/Purchase Price Analyst ID = [id number] for VIRIDIANA SANTIZO POCT-GLUCOSE [id number] 22:31:00* Test Item Value Reference Range Interpretation Comments POC-GLUCOSE METER (BEAKER) (test code = 1538) 224 mg/dL 70-110 H : TESTED AT [address], [address]: Systems Project Manager/Purchase Price Analyst ID = [id number] for GUTIERREZ TOMLINSON Vancomycin level, [id number] 21:52:00* Test Item Value Reference Range Interpretation Comments Vancomycin Tr (test code = 4092-3) 15.4 ug/mL 10-20 TODD (test code = TODD) Systems Project Manager ID - BS Lab Interpretation (test code = 83178-7) [facility] [id number] 21:52:00* Test Item Value Reference Range Interpretation Comments VANCOMYCIN TROUGH (BEAKER) (test code = 522) 15.4 ug/mL 10.0-20.0 Systems Project Manager ID - BSPOCT-GLUCOSE [id number] 17:36:00* Test Item Value Reference Range Interpretation Comments POC-GLUCOSE METER (BEAKER) (test code = 1538) 115 mg/dL 70-110 H : TESTED AT [address], [address]: Systems Project Manager/Purchase Price Analyst ID = [id number] for CHERYLE OMAIRA POCT-GLUCOSE [id number] 12:36:00* Test Item Value Reference Range Interpretation Comments POC-GLUCOSE METER (BEAKER) (test code = 1538) 85 mg/dL 70-110 : TESTED AT [address], [address]: Systems Project Manager/Purchase Price Analyst ID = [id number] for CHERYLE OMAIRA POCT-GLUCOSE [id number] 08:33:00* Test Item Value Reference Range Interpretation Comments POC-GLUCOSE METER (BEAKER) (test code = 1538) 121 mg/dL 70-110 H : TESTED AT [address], [address]: Systems Project Manager/Purchase Price Analyst ID = [id number] for OMAIRA LOBATO CBC W/PLT COUNT & AUTO [id number] 06:36:00* Test Item Value Reference Range Interpretation Comments WHITE BLOOD CELL COUNT (BEAKER) (test code = 775) 9.3 K/ L 3.5- 10.5 RED BLOOD CELL COUNT (BEAKER) (test code = 761) 4.24 M/ L 4.63-6 .08 L HEMOGLOBIN (BEAKER) (test code = 410) 10.5 GM/DL 13.7-17.5 L HEMATOCRIT (BEAKER) (test code = 411) 35.1 % 40.1-51.0 L MEAN CORPUSCULAR VOLUME (BEAKER) (test code = 753) 82.8 fL 79. 0-92.2 MEAN CORPUSCULAR HEMOGLOBIN (BEAKER) (test code = 751) 24.8 pg 25.7-32.2 L MEAN CORPUSCULAR HEMOGLOBIN CONC (BEAKER) (test code = 752) 29.9 GM/DL 32.3-36.5 L RED CELL DISTRIBUTION WIDTH (BEAKER) (test code = 412) 19.9 % 11.6-14.4 H PLATELET COUNT (BEAKER) (test code = 756) 341 K/CU MM 150-450 MEAN PLATELET VOLUME (BEAKER) (test code = 754) 8.4 fL 9.4-12 .4 L NUCLEATED RED BLOOD CELLS (BEAKER) (test code = 413) 0 /100 WBC 0 -0 NEUTROPHILS RELATIVE PERCENT (BEAKER) (test code = 429) 34 % LYMPHOCYTES RELATIVE PERCENT (BEAKER) (test code = 430) 48 % MONOCYTES RELATIVE PERCENT (BEAKER) (test code = 431) 13 % EOSINOPHILS RELATIVE PERCENT (BEAKER) (test code = 432) 3 % BASOPHILS RELATIVE PERCENT (BEAKER) (test code = 437) 1 % NEUTROPHILS ABSOLUTE COUNT (BEAKER) (test code = 670) 3.16 K/ L 1.78-5.38 LYMPHOCYTES ABSOLUTE COUNT (BEAKER) (test code = 414) 4.49 K/ L 1.32-3.57 H MONOCYTES ABSOLUTE COUNT (BEAKER) (test code = 415) 1.22 K/ L 0. 30-0.82 H EOSINOPHILS ABSOLUTE COUNT (BEAKER) (test code = 416) 0.31 K/ L 0.04-0.54 BASOPHILS ABSOLUTE COUNT (BEAKER) (test code = 417) 0.06 K/ L 0. 01-0.08 IMMATURE GRANULOCYTES-RELATIVE PERCENT (BEAKER) (test code = 2801) 0 % 0-1 BASIC METABOLIC [id number] 05:31:00* Test Item Value Reference Range Interpretation Comments SODIUM (BEAKER) (test code = 381) 137 meq/L 136-145 POTASSIUM (BEAKER) (test code = 379) 4.2 meq/L 3.5-5.1 Specimen slightly hemolyzed CHLORIDE (BEAKER) (test code = 382) 104 meq/L 98-107 CO2 (BEAKER) (test code = 355) 24 meq/L 22-29 BLOOD UREA NITROGEN (BEAKER) (test code = 354) 27 mg/dL 7-21 H CREATININE (BEAKER) (test code = 358) 0.63 mg/dL 0.57-1.25 Specimen slightly hemolyzed GLUCOSE RANDOM (BEAKER) (test code = 652) 100 mg/dL 70-105 CALCIUM (BEAKER) (test code = 697) 9.7 mg/dL 8.4-10.2 EGFR (BEAKER) (test code = 1092) 143 mL/min/1.73 sq m ESTIMATED GFR IS NOT ACCURATE CREATININE CLEARANCE IN PREDICTING GLOMERULAR FILTRATION RATE. ESTIMATED GFR IS NOT APPLICABLE FOR DIALYSIS PATIENTS. Systems Project Manager ID - PIAYA LPOCT-GLUCOSE [id number] 22:22:00* Test Item Value Reference Range Interpretation Comments POC-GLUCOSE METER (BEAKER) (test code = 1538) 117 mg/dL 70-110 H : TESTED AT [place] [id number] [facility], [address]: Systems Project Manager/Purchase Price Analyst ID = [id number] for HAKAN TOMLINSONIA POCT-GLUCOSE [id number] 17:32:00* Test Item Value Reference Range Interpretation Comments POC-GLUCOSE METER (BEAKER) (test code = 1538) 156 mg/dL 70-110 H : TESTED AT [place] [id number] [facility], [address]: Systems Project Manager/Purchase Price Analyst ID = [id number] for OMAIRA LOBATO POCT-GLUCOSE [id number] 12:20:00* Test Item Value Reference Range Interpretation Comments POC-GLUCOSE METER (BEAKER) (test code = 1538) 115 mg/dL 70-110 H : TESTED AT [address], [address]: Systems Project Manager/Purchase Price Analyst ID = [id number] for OMAIRA LOBATO POCT-GLUCOSE [id number] 08:20:00* Test Item Value Reference Range Interpretation Comments POC-GLUCOSE METER (BEAKER) (test code = 1538) 110 mg/dL 70-110 : TESTED AT [address], [address]: Systems Project Manager/Purchase Price Analyst ID = [id number] for OMAIRA LOBATO POCT-GLUCOSE [id number] 21:09:00* Test Item Value Reference Range Interpretation Comments POC-GLUCOSE METER (BEAKER) (test code = 1538) 133 mg/dL 70-110 H : TESTED AT [address], [address]: Systems Project Manager/Purchase Price Analyst ID = [id number] for SASU, NIECY POCT-GLUCOSE [id number] 17:38:00* Test Item Value Reference Range Interpretation Comments POC-GLUCOSE METER (BEAKER) (test code = 1538) 132 mg/dL 70-110 H : TESTED AT [address], [address]: Systems Project Manager/Purchase Price Analyst ID = [id number] for SUKHDEV, VIRIDIANA POCT-GLUCOSE [id number] 14:44:00* Test Item Value Reference Range Interpretation Comments POC-GLUCOSE METER (BEAKER) (test code = 1538) 123 mg/dL 70-110 H : TESTED AT [address], [address]: Systems Project Manager/Purchase Price Analyst ID = [id number] for SUKHDEV, VIRIDIANA POCT-GLUCOSE [id number] 08:15:00* Test Item Value Reference Range Interpretation Comments POC-GLUCOSE METER (BEAKER) (test code = 1538) 132 mg/dL 70-110 H : TESTED AT [address], [address]: Systems Project Manager/Purchase Price Analyst ID = [id number] for SUKHDEV, VIRIDIANA POCT-GLUCOSE [id number] 21:12:00* Test Item Value Reference Range Interpretation Comments POC-GLUCOSE METER (BEAKER) (test code = 1538) 164 mg/dL 70-110 H : TESTED AT [address], [address]: Systems Project Manager/Purchase Price Analyst ID = [id number] for SASU, NIECY POCT-GLUCOSE [id number] 17:13:00* Test Item Value Reference Range Interpretation Comments POC-GLUCOSE METER (BEAKER) (test code = 1538) 170 mg/dL 70-110 H : TESTED AT [facility] [address] [facility] [place], [address]: Systems Project Manager/Purchase Price Analyst ID = [id number] for VIRIDIANA SANTIZO CBC W/PLT COUNT & AUTO [id number] 13:36:00* Test Item Value Reference Range Interpretation Comments WHITE BLOOD CELL COUNT (BEAKER) (test code = 775) 8.9 K/ L 3.5- 10.5 RED BLOOD CELL COUNT (BEAKER) (test code = 761) 4.38 M/ L 4.63-6 .08 L HEMOGLOBIN (BEAKER) (test code = 410) 10.6 GM/DL 13.7-17.5 L HEMATOCRIT (BEAKER) (test code = 411) 35.9 % 40.1-51.0 L MEAN CORPUSCULAR VOLUME (BEAKER) (test code = 753) 82.0 fL 79. 0-92.2 MEAN CORPUSCULAR HEMOGLOBIN (BEAKER) (test code = 751) 24.2 pg 25.7-32.2 L MEAN CORPUSCULAR HEMOGLOBIN CONC (BEAKER) (test code = 752) 29.5 GM/DL 32.3-36.5 L RED CELL DISTRIBUTION WIDTH (BEAKER) (test code = 412) 19.9 % 11.6-14.4 H PLATELET COUNT (BEAKER) (test code = 756) 461 K/CU MM 150-450 H MEAN PLATELET VOLUME (BEAKER) (test code = 754) 8.2 fL 9.4-12 .4 L NUCLEATED RED BLOOD CELLS (BEAKER) (test code = 413) 0 /100 WBC 0 -0 (CELLAVISION MANUAL DIFF)2019-12-25 13:36:00* Test Item Value Reference Range Interpretation Comments NEUTROPHILS - REL (CELLAVISION)(BEAKER) (test code = 2816) 30 % LYMPHOCYTES - REL (CELLAVISION)(BEAKER) (test code = 2817) 52 % MONOCYTES - REL (CELLAVISION)(BEAKER) (test code = 2818) 10 % EOSINOPHILS - REL (CELLAVISION)(BEAKER) (test code = 2819) 6 % BASOPHILS - REL (CELLAVISION)(BEAKER) (test code = 2820) 1 % ATYPICAL LYMPHOCYTES - REL (CELLAVISION)(BEAKER) (test code = 2829) 2 % 0-0 H NEUTROPHILS - ABS (CELLAVISION)(BEAKER) (test code = 2830) 2.67 K/ul 1.78-5.38 LYMPHOCYTES - ABS (CELLAVISION)(BEAKER) (test code = 2831) 4.63 K/ul 1.32-3.57 H MONOCYTES - ABS (CELLAVISION)(BEAKER) (test code = 2832) 0.89 K/uL 0.30-0.82 H EOSINOPHILS - ABS (CELLAVISION)(BEAKER) (test code = 2834) 0.53 K/uL 0.04-0.54 BASOPHILS - ABS (CELLAVISION)(BEAKER) (test code = 2835) 0.09 K/uL 0.01-0.08 H ATYPICAL LYMPHOCYTES - ABS (CELLAVISION)(BEAKER) (test code = 2858) 0.18 K/uL 0.00-0.00 H TOTAL COUNTED (BEAKER) (test code = 1351) 100 MANUAL NRBC PER 100 CELLS (BEAKER) (test code = 1353) 1 /100 WBC 0-0 H PLT MORPHOLOGY (BEAKER) (test code = 486) Normal TOXIC GRANULATION (BEAKER) (test code = 771) Present POLYCHROMATOPHILLIC RBCS(BEAKER) (test code = 478) 1+ few HYPOCHROMIA (BEAKER) (test code = 963) 1+ few ANISOCYTOSIS (BEAKER) (test code = 961) 1+ few ARTIFACT (CELLAVISION)(BEAKER) (test code = 3432) Present PLATELET CONCENTRATION (CELLAVISION)(BEAKER) (test code = 3438) Inc reased Systems Project Manager ID - Varsha Moore comments: Slide comments: POCT-GLUCOSE [id number] 12:08:00* Test Item Value Reference Range Interpretation Comments POC-GLUCOSE METER (BEAKER) (test code = 1538) 112 mg/dL 70-110 H : TESTED AT [facility] [address] [facility], [address]: Systems Project Manager/Purchase Price Analyst ID = [id number] for VIRIDIANA SANTIZO POCT-GLUCOSE [id number] 08:24:00* Test Item Value Reference Range Interpretation Comments POC-GLUCOSE METER (BEAKER) (test code = 1538) 161 mg/dL 70-110 H : TESTED AT [place] [id number] [facility], [address]: Systems Project Manager/Purchase Price Analyst ID = [id number] for VIRIDIANA SANTIZO VANCOMYCIN LEVEL, [id number] 07:15:00* Test Item Value Reference Range Interpretation Comments VANCOMYCIN TROUGH (BEAKER) (test code = 522) 15.1 ug/mL 10.0-20.0 Systems Project Manager ID - [facility] METABOLIC [id number] 06:03:00* Test Item Value Reference Range Interpretation Comments SODIUM (BEAKER) (test code = 381) 137 meq/L 136-145 POTASSIUM (BEAKER) (test code = 379) 4.2 meq/L 3.5-5.1 CHLORIDE (BEAKER) (test code = 382) 104 meq/L 98-107 CO2 (BEAKER) (test code = 355) 27 meq/L 22-29 BLOOD UREA NITROGEN (BEAKER) (test code = 354) 27 mg/dL 7-21 H CREATININE (BEAKER) (test code = 358) 0.68 mg/dL 0.57-1.25 GLUCOSE RANDOM (BEAKER) (test code = 652) 134 mg/dL 70-105 H CALCIUM (BEAKER) (test code = 697) 9.4 mg/dL 8.4-10.2 EGFR (BEAKER) (test code = 1092) 131 mL/min/1.73 sq m ESTIMATED GFR IS NOT ACCURATE CREATININE CLEARANCE IN PREDICTING GLOMERULAR FILTRATION RATE. ESTIMATED GFR IS NOT APPLICABLE FOR DIALYSIS PATIENTS. Systems Project Manager ID - ADENIKE WPOCT-GLUCOSE [id number] 21:32:00* Test Item Value Reference Range Interpretation Comments POC-GLUCOSE METER (BEAKER) (test code = 1538) 177 mg/dL 70-110 H : TESTED AT [place] [id number] [facility], [address]: Systems Project Manager/Purchase Price Analyst ID = [id number] for ROXANNE HOANG POCT-GLUCOSE [id number] 17:39:00* Test Item Value Reference Range Interpretation Comments POC-GLUCOSE METER (BEAKER) (test code = 1538) 149 mg/dL 70-110 H : TESTED AT [address], [address]: Systems Project Manager/Purchase Price Analyst ID = [id number] for JOCELYN LOBATOY POCT-GLUCOSE [id number] 12:45:00* Test Item Value Reference Range Interpretation Comments POC-GLUCOSE METER (BEAKER) (test code = 1538) 228 mg/dL 70-110 H : TESTED AT [address], [address]: Systems Project Manager/Purchase Price Analyst ID = [id number] for CHERYLE OMAIRA POCT-GLUCOSE [id number] 08:47:00* Test Item Value Reference Range Interpretation Comments POC-GLUCOSE METER (BEAKER) (test code = 1538) 160 mg/dL 70-110 H : TESTED AT [address], [address]: Systems Project Manager/Purchase Price Analyst ID = [id number] for CHERYLE OMAIRA POCT-GLUCOSE [id number] 21:46:00* Test Item Value Reference Range Interpretation Comments POC-GLUCOSE METER (BEAKER) (test code = 1538) 154 mg/dL 70-110 H : TESTED AT [address], [address]: Systems Project Manager/Purchase Price Analyst ID = [id number] for GUTIERREZ TOMLINSON POCT-GLUCOSE [id number] 18:34:00* Test Item Value Reference Range Interpretation Comments POC-GLUCOSE METER (BEAKER) (test code = 1538) 107 mg/dL 70-110 : TESTED AT [address], [address]: Systems Project Manager/Purchase Price Analyst ID = [id number] for JOCELYN LOBATOY POCT-GLUCOSE [id number] 18:30:00* Test Item Value Reference Range Interpretation Comments POC-GLUCOSE METER (BEAKER) (test code = 1538) 121 mg/dL 70-110 H : TESTED AT [address], [address]: Systems Project Manager/Purchase Price Analyst ID = [id number] for JOCELYN LOBATOY POCT-GLUCOSE [id number] 18:26:00* Test Item Value Reference Range Interpretation Comments POC-GLUCOSE METER (BEAKER) (test code = 1538) 143 mg/dL 70-110 H : TESTED AT [address], [address]: Systems Project Manager/Purchase Price Analyst ID = [id number] for CHERYLE OMAIRA POCT-GLUCOSE [id number] 22:04:00* Test Item Value Reference Range Interpretation Comments POC-GLUCOSE METER (BEAKER) (test code = 1538) 188 mg/dL 70-110 H : TESTED AT [facility] [address] [facility], [address]: Systems Project Manager/Purchase Price Analyst ID = [id number] for NIECY NUNO POCT-GLUCOSE [id number] 17:43:00* Test Item Value Reference Range Interpretation Comments POC-GLUCOSE METER (BEAKER) (test code = 1538) 121 mg/dL 70-110 H : TESTED AT [facility] [address] [facility], [address]: Systems Project Manager/Purchase Price Analyst ID = [id number] for OMAIRA LOBATO BASIC METABOLIC [id number] 15:24:00* Test Item Value Reference Range Interpretation Comments SODIUM (BEAKER) (test code = 381) 137 meq/L 136-145 POTASSIUM (BEAKER) (test code = 379) 4.0 meq/L 3.5-5.1 CHLORIDE (BEAKER) (test code = 382) 105 meq/L 98-107 CO2 (BEAKER) (test code = 355) 25 meq/L 22-29 BLOOD UREA NITROGEN (BEAKER) (test code = 354) 31 mg/dL 7-21 H CREATININE (BEAKER) (test code = 358) 0.64 mg/dL 0.57-1.25 GLUCOSE RANDOM (BEAKER) (test code = 652) 108 mg/dL 70-105 H CALCIUM (BEAKER) (test code = 697) 9.3 mg/dL 8.4-10.2 EGFR (BEAKER) (test code = 1092) 140 mL/min/1.73 sq m ESTIMATED GFR IS NOT ACCURATE CREATININE CLEARANCE IN PREDICTING GLOMERULAR FILTRATION RATE. ESTIMATED GFR IS NOT APPLICABLE FOR DIALYSIS PATIENTS. Systems Project Manager ID - FLOR MVANCOMYCIN LEVEL, [id number] 15:22:00* Test Item Value Reference Range Interpretation Comments VANCOMYCIN TROUGH (BEAKER) (test code = 522) 14.0 ug/mL 10.0-20.0 Systems Project Manager ID - FLOR [facility] (Hemogram only)2019-12-22 15:12:00* Test Item Value Reference Range Interpretation Comments WBC (test code = 6690-2) 12.1 3.5- 10.5 K/L H RBC (test code = 789-8) 4.04 4.63- 6.08 M/L L MCHC (test code = 786-4) 30.7 32.3- 36.5 GM/DL L Hematocrit (test code = 4544-3) 32.9 % 40.1-51 L MCV (test code = 787-2) 81.4 fL 79-92.2 MCH (test code = 785-6) 25.0 pg 25.7-32.2 L RDW (test code = 788-0) 19.9 % 11.6-14.4 H Platelets (test code = 777-3) 576 150- 450 K/CU MM H MPV (test code = 03590-1) 8.2 fL 9.4-12.4 L nRBC (test code = 413) 0 0- 0 /100 WBC Lab Interpretation (test code = 71690-6) Abnormal [facility] (HEMOGRAM ONLY)2019-12-22 15:12:00* Test Item Value Reference Range Interpretation Comments WHITE BLOOD CELL COUNT (BEAKER) (test code = 775) 12.1 K/ L 3.5- 10.5 H RED BLOOD CELL COUNT (BEAKER) (test code = 761) 4.04 M/ L 4.63-6 .08 L HEMOGLOBIN (BEAKER) (test code = 410) 10.1 GM/DL 13.7-17.5 L HEMATOCRIT (BEAKER) (test code = 411) 32.9 % 40.1-51.0 L MEAN CORPUSCULAR VOLUME (BEAKER) (test code = 753) 81.4 fL 79. 0-92.2 MEAN CORPUSCULAR HEMOGLOBIN (BEAKER) (test code = 751) 25.0 pg 25.7-32.2 L MEAN CORPUSCULAR HEMOGLOBIN CONC (BEAKER) (test code = 752) 30.7 GM/DL 32.3-36.5 L RED CELL DISTRIBUTION WIDTH (BEAKER) (test code = 412) 19.9 % 11.6-14.4 H PLATELET COUNT (BEAKER) (test code = 756) 576 K/CU MM 150-450 H MEAN PLATELET VOLUME (BEAKER) (test code = 754) 8.2 fL 9.4-12 .4 L NUCLEATED RED BLOOD CELLS (BEAKER) (test code = 413) 0 /100 WBC 0 -0 POCT-GLUCOSE [id number] 12:37:00* Test Item Value Reference Range Interpretation Comments POC-GLUCOSE METER (BEAKER) (test code = 1538) 123 mg/dL 70-110 H : TESTED AT [address], [address]: Systems Project Manager/Purchase Price Analyst ID = [id number] for OMAIRA LOBATO POCT-GLUCOSE [id number] 08:42:00* Test Item Value Reference Range Interpretation Comments POC-GLUCOSE METER (BEAKER) (test code = 1538) 162 mg/dL 70-110 H : TESTED AT [address], [address]: Systems Project Manager/Purchase Price Analyst ID = [id number] for OMAIRA LOBATO POCT-GLUCOSE [id number] 23:09:00* Test Item Value Reference Range Interpretation Comments POC-GLUCOSE METER (BEAKER) (test code = 1538) 221 mg/dL 70-110 H : TESTED AT [address], [address]: Systems Project Manager/Purchase Price Analyst ID = [id number] for GUTIERREZ TOMLINSON POCT-GLUCOSE [id number] 17:30:00* Test Item Value Reference Range Interpretation Comments POC-GLUCOSE METER (BEAKER) (test code = 1538) 116 mg/dL 70-110 H : TESTED AT [address], [address]: Systems Project Manager/Purchase Price Analyst ID = [id number] for SUKHDEV, VIRIDIANA POCT-GLUCOSE [id number] 12:40:00* Test Item Value Reference Range Interpretation Comments POC-GLUCOSE METER (BEAKER) (test code = 1538) 90 mg/dL 70-110 : TESTED AT [address], [address]: Systems Project Manager/Purchase Price Analyst ID = [id number] for SUKHDEV, VIRIDIANA POCT-GLUCOSE [id number] 08:16:00* Test Item Value Reference Range Interpretation Comments POC-GLUCOSE METER (BEAKER) (test code = 1538) 126 mg/dL 70-110 H : TESTED AT [address], [address]: Systems Project Manager/Purchase Price Analyst ID = [id number] for SUKHDEV, VIRIDIANA POCT-GLUCOSE [id number] 01:36:00* Test Item Value Reference Range Interpretation Comments POC-GLUCOSE METER (BEAKER) (test code = 1538) 124 mg/dL 70-110 H : TESTED AT [facility] [address] [facility], [address]: Systems Project Manager/Purchase Price Analyst ID = [id number] for FIDELIAUNIECY POCT-GLUCOSE [id number] 20:59:00* Test Item Value Reference Range Interpretation Comments POC-GLUCOSE METER (BEAKER) (test code = 1538) 112 mg/dL 70-110 H : TESTED AT [place] [id number] [facility], [address]: Systems Project Manager/Purchase Price Analyst ID = [id number] for SASU NIECY POCT-GLUCOSE [id number] 18:31:00* Test Item Value Reference Range Interpretation Comments POC-GLUCOSE METER (BEAKER) (test code = 1538) 174 mg/dL 70-110 H : TESTED AT [address], [address]: Systems Project Manager/Purchase Price Analyst ID = [id number] for EL AL BASIC METABOLIC [id number] 14:27:00* Test Item Value Reference Range Interpretation Comments SODIUM (BEAKER) (test code = 381) 135 meq/L 136-145 L POTASSIUM (BEAKER) (test code = 379) 4.0 meq/L 3.5-5.1 CHLORIDE (BEAKER) (test code = 382) 105 meq/L 98-107 CO2 (BEAKER) (test code = 355) 21 meq/L 22-29 L BLOOD UREA NITROGEN (BEAKER) (test code = 354) 24 mg/dL 7-21 H CREATININE (BEAKER) (test code = 358) 0.66 mg/dL 0.57-1.25 GLUCOSE RANDOM (BEAKER) (test code = 652) 112 mg/dL 70-105 H CALCIUM (BEAKER) (test code = 697) 9.3 mg/dL 8.4-10.2 EGFR (BEAKER) (test code = 1092) 135 mL/min/1.73 sq m ESTIMATED GFR IS NOT ACCURATE CREATININE CLEARANCE IN PREDICTING GLOMERULAR FILTRATION RATE. ESTIMATED GFR IS NOT APPLICABLE FOR DIALYSIS PATIENTS. Systems Project Manager ID Florence NESBITT FVANCOMYCIN LEVEL, [id number] 14:26:00* Test Item Value Reference Range Interpretation Comments VANCOMYCIN TROUGH (BEAKER) (test code = 522) 11.4 ug/mL 10.0-20.0 Systems Project Manager ID Florence NESBITT FPOCT-GLUCOSE [id number] 12:27:00* Test Item Value Reference Range Interpretation Comments POC-GLUCOSE METER (BEAKER) (test code = 1538) 83 mg/dL 70-110 : TESTED AT [address], [address]: Systems Project Manager/Purchase Price Analyst ID = [id number] for VIRIDIANA SANTIZO POCT-GLUCOSE [id number] 08:16:00* Test Item Value Reference Range Interpretation Comments POC-GLUCOSE METER (BEAKER) (test code = 1538) 158 mg/dL 70-110 H : TESTED AT [address], [address]: Systems Project Manager/Purchase Price Analyst ID = [id number] for FLAVIO SANTIZOINA POCT-GLUCOSE [id number] 22:49:00* Test Item Value Reference Range Interpretation Comments POC-GLUCOSE METER (BEAKER) (test code = 1538) 152 mg/dL 70-110 H : TESTED AT [address], [address]: Systems Project Manager/Purchase Price Analyst ID = [id number] for GUTIERREZ TOMLINSON POCT-GLUCOSE [id number] 18:15:00* Test Item Value Reference Range Interpretation Comments POC-GLUCOSE METER (BEAKER) (test code = 1538) 125 mg/dL 70-110 H : TESTED AT [address], [address]: Systems Project Manager/Purchase Price Analyst ID = [id number] for OMAIRA LOBATO POCT-GLUCOSE [id number] 13:05:00* Test Item Value Reference Range Interpretation Comments POC-GLUCOSE METER (BEAKER) (test code = 1538) 105 mg/dL 70-110 : TESTED AT [address], [address]: Systems Project Manager/Purchase Price Analyst ID = [id number] for OMAIRA LOBATO POCT-GLUCOSE [id number] 07:52:00* Test Item Value Reference Range Interpretation Comments POC-GLUCOSE METER (BEAKER) (test code = 1538) 150 mg/dL 70-110 H : TESTED AT [address], [address]: Systems Project Manager/Purchase Price Analyst ID = [id number] for OMAIRA LOBATO BASIC METABOLIC [id number] 05:35:00* Test Item Value Reference Range Interpretation Comments SODIUM (BEAKER) (test code = 381) 136 meq/L 136-145 POTASSIUM (BEAKER) (test code = 379) 4.2 meq/L 3.5-5.1 CHLORIDE (BEAKER) (test code = 382) 103 meq/L 98-107 CO2 (BEAKER) (test code = 355) 25 meq/L 22-29 BLOOD UREA NITROGEN (BEAKER) (test code = 354) 27 mg/dL 7-21 H CREATININE (BEAKER) (test code = 358) 0.65 mg/dL 0.57-1.25 GLUCOSE RANDOM (BEAKER) (test code = 652) 128 mg/dL 70-105 H CALCIUM (BEAKER) (test code = 697) 9.5 mg/dL 8.4-10.2 EGFR (BEAKER) (test code = 1092) 137 mL/min/1.73 sq m ESTIMATED GFR IS NOT ACCURATE CREATININE CLEARANCE IN PREDICTING GLOMERULAR FILTRATION RATE. ESTIMATED GFR IS NOT APPLICABLE FOR DIALYSIS PATIENTS. Systems Project Manager ID - FLOR MVANCOMYCIN LEVEL, [id number] 05:20:00* Test Item Value Reference Range Interpretation Comments VANCOMYCIN TROUGH (BEAKER) (test code = 522) 12.1 ug/mL 10.0-20.0 Systems Project Manager ID - FLOR MCBC (HEMOGRAM ONLY)2019-12-19 04:54:00* Test Item Value Reference Range Interpretation Comments WHITE BLOOD CELL COUNT (BEAKER) (test code = 775) 9.8 K/ L 3.5- 10.5 RED BLOOD CELL COUNT (BEAKER) (test code = 761) 4.16 M/ L 4.63-6 .08 L HEMOGLOBIN (BEAKER) (test code = 410) 10.2 GM/DL 13.7-17.5 L HEMATOCRIT (BEAKER) (test code = 411) 34.3 % 40.1-51.0 L MEAN CORPUSCULAR VOLUME (BEAKER) (test code = 753) 82.5 fL 79. 0-92.2 MEAN CORPUSCULAR HEMOGLOBIN (BEAKER) (test code = 751) 24.5 pg 25.7-32.2 L MEAN CORPUSCULAR HEMOGLOBIN CONC (BEAKER) (test code = 752) 29.7 GM/DL 32.3-36.5 L RED CELL DISTRIBUTION WIDTH (BEAKER) (test code = 412) 20.1 % 11.6-14.4 H PLATELET COUNT (BEAKER) (test code = 756) 688 K/CU MM 150-450 H MEAN PLATELET VOLUME (BEAKER) (test code = 754) 8.2 fL 9.4-12 .4 L NUCLEATED RED BLOOD CELLS (BEAKER) (test code = 413) 0 /100 WBC 0 -0 POCT-GLUCOSE [id number] 21:58:00* Test Item Value Reference Range Interpretation Comments POC-GLUCOSE METER (BEAKER) (test code = 1538) 110 mg/dL 70-110 : TESTED AT [facility] [address] [facility], [address]: Systems Project Manager/Purchase Price Analyst ID = [id number] for CHEKO DURHAM POCT-GLUCOSE [id number] 18:30:00* Test Item Value Reference Range Interpretation Comments POC-GLUCOSE METER (BEAKER) (test code = 1538) 193 mg/dL 70-110 H : TESTED AT [place] [id number] [facility], [address]: Systems Project Manager/Purchase Price Analyst ID = [id number] for VIRIDIANA SANTIZO BUN and [id number] 13:55:00* Test Item Value Reference Range Interpretation Comments BUN (test code = 3094-0) 21 mg/dL 7-21 Creatinine (test code = 2160-0) 0.48 mg/dL 0.57-1.25 L BUN/Creatinine Ratio (test code = 3097-3) 43.75 For a normal individual on a normal diet, the reference interval for the mass ratio ranges between 12:1 and 20:1 (BUN in mg/dL/creatinine in mg/dL) EGFR (test code = 41580-7) 195 mL/min/1.73 sq m ESTIMATED GFR IS NOT ACCURATE CREATININE CLEARANCE IN PREDICTING GLOMERULAR FILTRATION RATE. ESTIMATED GFR IS NOT APPLICABLE FOR DIALYSIS PATIENTS. TODD (test code = TODD) Systems Project Manager ID - FLOR M Lab Interpretation (test code = 33453-7) [id number] 13:55:00* Test Item Value Reference Range Interpretation Comments BLOOD UREA NITROGEN (BEAKER) (test code = 354) 21 mg/dL 7-21 CREATININE (BEAKER) (test code = 358) 0.48 mg/dL 0.57-1.25 L BUN/CREATININE RATIO (BEAKER) (test code = 1800) 43.7500 For a normal individual on a normal diet, the reference interval for the mass ratio ranges between 12:1 and 20:1 (BUN in mg/dL/creatinine in mg/dL) EGFR (BEAKER) (test code = 1092) 195 mL/min/1.73 sq m ESTIMATED GFR IS NOT ACCURATE CREATININE CLEARANCE IN PREDICTING GLOMERULAR FILTRATION RATE. ESTIMATED GFR IS NOT APPLICABLE FOR DIALYSIS PATIENTS. Systems Project Manager ID - FLOR MPOCT-GLUCOSE [id number] 12:38:00* Test Item Value Reference Range Interpretation Comments POC-GLUCOSE METER (BEAKER) (test code = 1538) 107 mg/dL 70-110 : TESTED AT [address], [address]: Systems Project Manager/Purchase Price Analyst ID = [id number] for SUKHDEV, VIRIDIANA POCT-GLUCOSE [id number] 08:29:00* Test Item Value Reference Range Interpretation Comments POC-GLUCOSE METER (BEAKER) (test code = 1538) 144 mg/dL 70-110 H : TESTED AT [address], [address]: Systems Project Manager/Purchase Price Analyst ID = [id number] for SUKHDEV, VIRIDIANA POCT-GLUCOSE [id number] 02:27:00* Test Item Value Reference Range Interpretation Comments POC-GLUCOSE METER (BEAKER) (test code = 1538) 128 mg/dL 70-110 H : TESTED AT [address], [address]: Systems Project Manager/Purchase Price Analyst ID = [id number] for SASU, NIECY POCT-GLUCOSE [id number] 21:10:00* Test Item Value Reference Range Interpretation Comments POC-GLUCOSE METER (BEAKER) (test code = 1538) 106 mg/dL 70-110 : TESTED AT [address], [address]: Systems Project Manager/Purchase Price Analyst ID = [id number] for SASU, NIECY POCT-GLUCOSE [id number] 17:30:00* Test Item Value Reference Range Interpretation Comments POC-GLUCOSE METER (BEAKER) (test code = 1538) 129 mg/dL 70-110 H : TESTED AT [address], [address]: Systems Project Manager/Purchase Price Analyst ID = [id number] for LAW GUPTA VANCOMYCIN LEVEL, [id number] 14:29:00* Test Item Value Reference Range Interpretation Comments VANCOMYCIN TROUGH (BEAKER) (test code = 522) 6.0 ug/mL 10.0-20.0 L Systems Project Manager ID - DBPOCT-GLUCOSE [id number] 13:16:00* Test Item Value Reference Range Interpretation Comments POC-GLUCOSE METER (BEAKER) (test code = 1538) 108 mg/dL 70-110 : TESTED AT [address], [address]: Systems Project Manager/Purchase Price Analyst ID = [id number] for LAW GUPTA POCT-GLUCOSE [id number] 12:28:00* Test Item Value Reference Range Interpretation Comments POC-GLUCOSE METER (BEAKER) (test code = 1538) 126 mg/dL 70-110 H : TESTED AT [address], [address]: Systems Project Manager/Purchase Price Analyst ID = [id number] for BOUBACAR GUPTAISSA POCT-GLUCOSE [id number] 07:51:00* Test Item Value Reference Range Interpretation Comments POC-GLUCOSE METER (BEAKER) (test code = 1538) 138 mg/dL 70-110 H : TESTED AT [address], [address]: Systems Project Manager/Purchase Price Analyst ID = [id number] for BOUBACAR GUPTAISSA POCT-GLUCOSE [id number] 21:25:00* Test Item Value Reference Range Interpretation Comments POC-GLUCOSE METER (BEAKER) (test code = 1538) 77 mg/dL 70-110 : TESTED AT [address], [address]: Systems Project Manager/Purchase Price Analyst ID = [id number] for YAAKOV NIECY POCT-GLUCOSE [id number] 17:52:00* Test Item Value Reference Range Interpretation Comments POC-GLUCOSE METER (BEAKER) (test code = 1538) 133 mg/dL 70-110 H : TESTED AT [address], [address]: Systems Project Manager/Purchase Price Analyst ID = [id number] for VIRIDIANA SANTIZO POCT-GLUCOSE [id number] 12:05:00* Test Item Value Reference Range Interpretation Comments POC-GLUCOSE METER (BEAKER) (test code = 1538) 140 mg/dL 70-110 H : TESTED AT [address], [address]: Systems Project Manager/Purchase Price Analyst ID = [id number] for SUKHDEV, VIRIDIANA POCT-GLUCOSE [id number] 08:46:00* Test Item Value Reference Range Interpretation Comments POC-GLUCOSE METER (BEAKER) (test code = 1538) 130 mg/dL 70-110 H : TESTED AT [address], [address]: Systems Project Manager/Purchase Price Analyst ID = [id number] for SUKHDEV, VIRIDIANA POCT-GLUCOSE [id number] 23:04:00* Test Item Value Reference Range Interpretation Comments POC-GLUCOSE METER (BEAKER) (test code = 1538) 162 mg/dL 70-110 H : TESTED AT [address], [address]: Systems Project Manager/Purchase Price Analyst ID = [id number] for SASU, NIECY POCT-GLUCOSE [id number] 20:52:00* Test Item Value Reference Range Interpretation Comments POC-GLUCOSE METER (BEAKER) (test code = 1538) 97 mg/dL 70-110 : TESTED AT [address], [address]: Systems Project Manager/Purchase Price Analyst ID = [id number] for SASU, NIECY POCT-GLUCOSE [id number] 18:13:00* Test Item Value Reference Range Interpretation Comments POC-GLUCOSE METER (BEAKER) (test code = 1538) 134 mg/dL 70-110 H : TESTED AT [address], [address]: Systems Project Manager/Purchase Price Analyst ID = [id number] for SUKHDEV, VIRIDIANA POCT-GLUCOSE [id number] 18:11:00* Test Item Value Reference Range Interpretation Comments POC-GLUCOSE METER (BEAKER) (test code = 1538) 89 mg/dL 70-110 : TESTED AT [address], [address]: Systems Project Manager/Purchase Price Analyst ID = [id number] for SUKHDEV, VIRIDIANA POCT-GLUCOSE [id number] 07:50:00* Test Item Value Reference Range Interpretation Comments POC-GLUCOSE METER (BEAKER) (test code = 1538) 114 mg/dL 70-110 H : TESTED AT [address], [address]: Systems Project Manager/Purchase Price Analyst ID = [id number] for SUKHDEV, VIRIDIANA POCT-GLUCOSE [id number] 21:34:00* Test Item Value Reference Range Interpretation Comments POC-GLUCOSE METER (BEAKER) (test code = 1538) 140 mg/dL 70-110 H : TESTED AT [address], [address]: Systems Project Manager/Purchase Price Analyst ID = [id number] for VIRIDIANA SANTIZO POCT-GLUCOSE [id number] 21:16:00* Test Item Value Reference Range Interpretation Comments POC-GLUCOSE METER (BEAKER) (test code = 1538) 124 mg/dL 70-110 H : TESTED AT [address], [address]: Systems Project Manager/Purchase Price Analyst ID = [id number] for MARIO MORALES POCT-GLUCOSE [id number] 12:27:00* Test Item Value Reference Range Interpretation Comments POC-GLUCOSE METER (BEAKER) (test code = 1538) 103 mg/dL 70-110 : TESTED AT [address], [address]: Systems Project Manager/Purchase Price Analyst ID = [id number] for SUKHDEV, VIRIDIANA POCT-GLUCOSE [id number] 10:03:00* Test Item Value Reference Range Interpretation Comments POC-GLUCOSE METER (BEAKER) (test code = 1538) 146 mg/dL 70-110 H : TESTED AT [address], [address]: Systems Project Manager/Purchase Price Analyst ID = [id number] for FLAVIO SANTIZOINA POCT-GLUCOSE [id number] 21:08:00* Test Item Value Reference Range Interpretation Comments POC-GLUCOSE METER (BEAKER) (test code = 1538) 114 mg/dL 70-110 H : TESTED AT [address], [address]: Systems Project Manager/Purchase Price Analyst ID = [id number] for ULPAM, ROXANNE POCT-GLUCOSE [id number] 18:58:00* Test Item Value Reference Range Interpretation Comments POC-GLUCOSE METER (BEAKER) (test code = 1538) 110 mg/dL 70-110 : TESTED AT [address], [address]: Systems Project Manager/Purchase Price Analyst ID = [id number] for Lakisha Patino POCT-GLUCOSE [id number] 13:06:00* Test Item Value Reference Range Interpretation Comments POC-GLUCOSE METER (BEAKER) (test code = 1538) 139 mg/dL 70-110 H : TESTED AT [address], [address]: Systems Project Manager/Purchase Price Analyst ID = [id number] for Lakisha Patino POCT-GLUCOSE [id number] 07:35:00* Test Item Value Reference Range Interpretation Comments POC-GLUCOSE METER (BEAKER) (test code = 1538) 144 mg/dL 70-110 H : TESTED AT [facility] [address] [facility], [address]: Systems Project Manager/Purchase Price Analyst ID = [id number] for YAO ABEBE CBC W/PLT COUNT & AUTO [id number] 07:09:00* Test Item Value Reference Range Interpretation Comments WHITE BLOOD CELL COUNT (BEAKER) (test code = 775) 11.1 K/ L 3.5- 10.5 H RED BLOOD CELL COUNT (BEAKER) (test code = 761) 3.88 M/ L 4.63-6 .08 L HEMOGLOBIN (BEAKER) (test code = 410) 9.3 GM/DL 13.7-17.5 L HEMATOCRIT (BEAKER) (test code = 411) 31.7 % 40.1-51.0 L MEAN CORPUSCULAR VOLUME (BEAKER) (test code = 753) 81.7 fL 79. 0-92.2 MEAN CORPUSCULAR HEMOGLOBIN (BEAKER) (test code = 751) 24.0 pg 25.7-32.2 L MEAN CORPUSCULAR HEMOGLOBIN CONC (BEAKER) (test code = 752) 29.3 GM/DL 32.3-36.5 L RED CELL DISTRIBUTION WIDTH (BEAKER) (test code = 412) 20.1 % 11.6-14.4 H PLATELET COUNT (BEAKER) (test code = 756) 887 K/CU MM 150-450 H MEAN PLATELET VOLUME (BEAKER) (test code = 754) 8.1 fL 9.4-12 .4 L NUCLEATED RED BLOOD CELLS (BEAKER) (test code = 413) 0 /100 WBC 0 -0 (CELLAVISION MANUAL DIFF)2019-12-13 07:09:00* Test Item Value Reference Range Interpretation Comments NEUTROPHILS - REL (CELLAVISION)(BEAKER) (test code = 2816) 44 % LYMPHOCYTES - REL (CELLAVISION)(BEAKER) (test code = 2817) 53 % MONOCYTES - REL (CELLAVISION)(BEAKER) (test code = 2818) 2 % EOSINOPHILS - REL (CELLAVISION)(BEAKER) (test code = 2819) 1 % BASOPHILS - REL (CELLAVISION)(BEAKER) (test code = 2820) 1 % NEUTROPHILS - ABS (CELLAVISION)(BEAKER) (test code = 2830) 4.88 K/ul 1.78-5.38 LYMPHOCYTES - ABS (CELLAVISION)(BEAKER) (test code = 2831) 5.88 K/ul 1.32-3.57 H MONOCYTES - ABS (CELLAVISION)(BEAKER) (test code = 2832) 0.22 K/uL 0.30-0.82 L EOSINOPHILS - ABS (CELLAVISION)(BEAKER) (test code = 2834) 0.11 K/uL 0.04-0.54 BASOPHILS - ABS (CELLAVISION)(BEAKER) (test code = 2835) 0.11 K/uL 0.01-0.08 H TOTAL COUNTED (BEAKER) (test code = 1351) 100 WBC MORPHOLOGY (BEAKER) (test code = 487) Normal PLT MORPHOLOGY (BEAKER) (test code = 486) Normal ANISOCYTOSIS (BEAKER) (test code = 961) 1+ few MICROCYTES (BEAKER) (test code = 965) 1+ few ARTIFACT (CELLAVISION)(BEAKER) (test code = 3432) Present PLATELET CONCENTRATION (CELLAVISION)(BEAKER) (test code = 3438) Inc reased Systems Project Manager ID - Vera OverholtUser comments: Slide comments: POCT-GLUCOSE METER 2019-12-12 21:32:00* Test Item Value Reference Range Interpretation Comments POC-GLUCOSE METER (BEAKER) (test code = 1538) 110 mg/dL 70-110 : TESTED AT [place] [id number] [facility], [address]: Systems Project Manager/Purchase Price Analyst ID = [id number] for YAAKOV NIECY POCT-GLUCOSE [id number] 20:07:00* Test Item Value Reference Range Interpretation Comments POC-GLUCOSE METER (BEAKER) (test code = 1538) 168 mg/dL 70-110 H : TESTED AT [place] [address] [facility], [address]: Systems Project Manager/Purchase Price Analyst ID = [id number] for DINA REIS POCT-GLUCOSE [id number] 12:14:00* Test Item Value Reference Range Interpretation Comments POC-GLUCOSE METER (BEAKER) (test code = 1538) 123 mg/dL 70-110 H : TESTED AT [place] [address] [facility], [address]: Systems Project Manager/Purchase Price Analyst ID = [id number] for FLAVIO SANTIZOINA POCT-GLUCOSE [id number] 07:53:00* Test Item Value Reference Range Interpretation Comments POC-GLUCOSE METER (BEAKER) (test code = 1538) 147 mg/dL 70-110 H : TESTED AT [address], [address]: Systems Project Manager/Purchase Price Analyst ID = [id number] for FLAVIO SANTIZOINA POCT-GLUCOSE [id number] 21:17:00* Test Item Value Reference Range Interpretation Comments POC-GLUCOSE METER (BEAKER) (test code = 1538) 151 mg/dL 70-110 H : TESTED AT [address], [address]: Systems Project Manager/Purchase Price Analyst ID = [id number] for NIECY NUNO POCT-GLUCOSE [id number] 17:47:00* Test Item Value Reference Range Interpretation Comments POC-GLUCOSE METER (BEAKER) (test code = 1538) 132 mg/dL 70-110 H : TESTED AT [address], [address]: Systems Project Manager/Purchase Price Analyst ID = [id number] for TAMARA HOFFMAN URINALYSIS W/ REFLEX URINE [id number] 15:19:00* Test Item Value Reference Range Interpretation Comments COLOR (BEAKER) (test code = 470) Yellow CLARITY (BEAKER) (test code = 469) Clear SPECIFIC GRAVITY UA (BEAKER) (test code = 468) 1.020 1.001-1 .035 PH UA (BEAKER) (test code = 467) 5.5 5.0-8.0 PROTEIN UA (BEAKER) (test code = 464) 10 mg/dL Negative A GLUCOSE UA (BEAKER) (test code = 365) Negative Negative KETONES UA (BEAKER) (test code = 371) Negative Negative BILIRUBIN UA (BEAKER) (test code = 462) Negative Negative BLOOD UA (BEAKER) (test code = 461) Negative Negative NITRITE UA (BEAKER) (test code = 465) Negative Negative LEUKOCYTE ESTERASE UA (BEAKER) (test code = 466) Negative Negat marianne UROBILINOGEN UA (BEAKER) (test code = 463) 0.2 mg/dL 0.2-1.0 RBC UA (BEAKER) (test code = 519) < /HPF WBC UA (BEAKER) (test code = 520) < /HPF BACTERIA (BEAKER) (test code = 517) Rare SOURCE(BEAKER) (test code = 2795) Systems Project Manager ID - [auto]Systems Project Manager ID - techPOCT-GLUCOSE [id number] 12:42:00* Test Item Value Reference Range Interpretation Comments POC-GLUCOSE METER (BEAKER) (test code = 1538) 93 mg/dL 70-110 : TESTED AT [address], [address]: Systems Project Manager/Purchase Price Analyst ID = [id number] for TAMARA HOFFMAN POCT-GLUCOSE [id number] 08:07:00* Test Item Value Reference Range Interpretation Comments POC-GLUCOSE METER (BEAKER) (test code = 1538) 131 mg/dL 70-110 H : TESTED AT [address], [address]: Systems Project Manager/P[employer] Price Analyst ID = [id number] for TAMARA HOFFMAN BASIC METABOLIC [id number] 07:18:00* Test Item Value Reference Range Interpretation Comments SODIUM (BEAKER) (test code = 381) 136 meq/L 136-145 POTASSIUM (BEAKER) (test code = 379) 4.0 meq/L 3.5-5.1 CHLORIDE (BEAKER) (test code = 382) 103 meq/L 98-107 CO2 (BEAKER) (test code = 355) 24 meq/L 22-29 BLOOD UREA NITROGEN (BEAKER) (test code = 354) 20 mg/dL 7-21 CREATININE (BEAKER) (test code = 358) 0.64 mg/dL 0.57-1.25 GLUCOSE RANDOM (BEAKER) (test code = 652) 123 mg/dL 70-105 H CALCIUM (BEAKER) (test code = 697) 9.0 mg/dL 8.4-10.2 EGFR (BEAKER) (test code = 1092) 140 mL/min/1.73 sq m ESTIMATED GFR IS NOT ACCURATE CREATININE CLEARANCE IN PREDICTING GLOMERULAR FILTRATION RATE. ESTIMATED GFR IS NOT APPLICABLE FOR DIALYSIS PATIENTS. Systems Project Manager ID - PIAYA LCBC W/PLT COUNT & AUTO [id number] 06:54:00* Test Item Value Reference Range Interpretation Comments WHITE BLOOD CELL COUNT (BEAKER) (test code = 775) 17.6 K/ L 3.5- 10.5 H RED BLOOD CELL COUNT (BEAKER) (test code = 761) 4.03 M/ L 4.63-6 .08 L HEMOGLOBIN (BEAKER) (test code = 410) 9.6 GM/DL 13.7-17.5 L HEMATOCRIT (BEAKER) (test code = 411) 32.6 % 40.1-51.0 L MEAN CORPUSCULAR VOLUME (BEAKER) (test code = 753) 80.9 fL 79. 0-92.2 MEAN CORPUSCULAR HEMOGLOBIN (BEAKER) (test code = 751) 23.8 pg 25.7-32.2 L MEAN CORPUSCULAR HEMOGLOBIN CONC (BEAKER) (test code = 752) 29.4 GM/DL 32.3-36.5 L RED CELL DISTRIBUTION WIDTH (BEAKER) (test code = 412) 19.9 % 11.6-14.4 H PLATELET COUNT (BEAKER) (test code = 756) 886 K/CU MM 150-450 H MEAN PLATELET VOLUME (BEAKER) (test code = 754) 7.9 fL 9.4-12 .4 L NUCLEATED RED BLOOD CELLS (BEAKER) (test code = 413) 0 /100 WBC 0 -0 NEUTROPHILS RELATIVE PERCENT (BEAKER) (test code = 429) 63 % LYMPHOCYTES RELATIVE PERCENT (BEAKER) (test code = 430) 28 % MONOCYTES RELATIVE PERCENT (BEAKER) (test code = 431) 7 % EOSINOPHILS RELATIVE PERCENT (BEAKER) (test code = 432) 1 % BASOPHILS RELATIVE PERCENT (BEAKER) (test code = 437) 1 % NEUTROPHILS ABSOLUTE COUNT (BEAKER) (test code = 670) 11.12 K/ L 1.78-5.38 H LYMPHOCYTES ABSOLUTE COUNT (BEAKER) (test code = 414) 4.86 K/ L 1.32-3.57 H MONOCYTES ABSOLUTE COUNT (BEAKER) (test code = 415) 1.19 K/ L 0. 30-0.82 H EOSINOPHILS ABSOLUTE COUNT (BEAKER) (test code = 416) 0.23 K/ L 0.04-0.54 BASOPHILS ABSOLUTE COUNT (BEAKER) (test code = 417) 0.10 K/ L 0. 01-0.08 H IMMATURE GRANULOCYTES-RELATIVE PERCENT (BEAKER) (test code = 2801) 1 % 0-1 POCT-GLUCOSE [id number] 22:14:00* Test Item Value Reference Range Interpretation Comments POC-GLUCOSE METER (BEAKER) (test code = 1538) 179 mg/dL 70-110 H : TESTED AT [address], [id number]: Systems Project Manager/Purchase Price Analyst ID = [id number] for [employer] POCT-GLUCOSE [id number] 17:58:00* Test Item Value Reference Range Interpretation Comments POC-GLUCOSE METER (BEAKER) (test code = 1538) 161 mg/dL 70-110 H : TESTED AT [address], [address]: Systems Project Manager/Purchase Price Analyst ID = [id number] for LAW GUPTA POCT-GLUCOSE [id number] 13:11:00* Test Item Value Reference Range Interpretation Comments POC-GLUCOSE METER (BEAKER) (test code = 1538) 135 mg/dL 70-110 H : TESTED AT [address], [address]: Systems Project Manager/Purchase Price Analyst ID = [id number] for CIARAN ALAN POCT-GLUCOSE [id number] 07:58:00* Test Item Value Reference Range Interpretation Comments POC-GLUCOSE METER (BEAKER) (test code = 1538) 130 mg/dL 70-110 H : TESTED AT [address], [address]: Systems Project Manager/Purchase Price Analyst ID = [id number] for OMAIRA LOBATO POCT-GLUCOSE [id number] 17:41:00* Test Item Value Reference Range Interpretation Comments POC-GLUCOSE METER (BEAKER) (test code = 1538) 113 mg/dL 70-110 H : TESTED AT [address], [address]: Systems Project Manager/Purchase Price Analyst ID = [id number] for Vaishali Puga POCT-GLUCOSE [id number] 12:13:00* Test Item Value Reference Range Interpretation Comments POC-GLUCOSE METER (BEAKER) (test code = 1538) 171 mg/dL 70-110 H : TESTED AT [address], [address]: Systems Project Manager/Purchase Price Analyst ID = [id number] for ESTEFANÍA HEBERT POCT-GLUCOSE [id number] 08:00:00* Test Item Value Reference Range Interpretation Comments POC-GLUCOSE METER (BEAKER) (test code = 1538) 145 mg/dL 70-110 H : TESTED AT [address], [address]: Systems Project Manager/Purchase Price Analyst ID = [id number] for OMAIRA LOBATO POCT-GLUCOSE [id number] 22:51:00* Test Item Value Reference Range Interpretation Comments POC-GLUCOSE METER (BEAKER) (test code = 1538) 196 mg/dL 70-110 H : TESTED AT [address], [address]: Systems Project Manager/Purchase Price Analyst ID = [id number] for CHEKO DURHAM POCT-GLUCOSE [id number] 18:00:00* Test Item Value Reference Range Interpretation Comments POC-GLUCOSE METER (BEAKER) (test code = 1538) 176 mg/dL 70-110 H : TESTED AT [address], [address]: Systems Project Manager/Purchase Price Analyst ID = [id number] for TAYA ORONA POCT-GLUCOSE [id number] 13:46:00* Test Item Value Reference Range Interpretation Comments POC-GLUCOSE METER (BEAKER) (test code = 1538) 101 mg/dL 70-110 : TESTED AT [address], [address]: Systems Project Manager/Purchase Price Analyst ID = [id number] for ALONSO LAW POCT-GLUCOSE [id number] 07:42:00* Test Item Value Reference Range Interpretation Comments POC-GLUCOSE METER (BEAKER) (test code = 1538) 107 mg/dL 70-110 : TESTED AT [address], [address]: Systems Project Manager/Purchase Price Analyst ID = [id number] for ALONSO, LAW POCT-GLUCOSE [id number] 22:03:00* Test Item Value Reference Range Interpretation Comments POC-GLUCOSE METER (BEAKER) (test code = 1538) 161 mg/dL 70-110 H : TESTED AT [address], [address]: Systems Project Manager/Purchase Price Analyst ID = [id number] for GUTIERREZ TOMLINSON POCT-GLUCOSE [id number] 18:46:00* Test Item Value Reference Range Interpretation Comments POC-GLUCOSE METER (BEAKER) (test code = 1538) 97 mg/dL 70-110 : TESTED AT [address], [address]: Systems Project Manager/Purchase Price Analyst ID = [id number] for SUKHDEV, VIRIIDANA POCT-GLUCOSE [id number] 13:41:00* Test Item Value Reference Range Interpretation Comments POC-GLUCOSE METER (BEAKER) (test code = 1538) 142 mg/dL 70-110 H : TESTED AT [address], [address]: Systems Project Manager/Purchase Price Analyst ID = [id number] for SUKHDEV, VIRIDIANA POCT-GLUCOSE [id number] 08:21:00* Test Item Value Reference Range Interpretation Comments POC-GLUCOSE METER (BEAKER) (test code = 1538) 124 mg/dL 70-110 H : TESTED AT [address], [address]: Systems Project Manager/Purchase Price Analyst ID = [id number] for SUKHDEV, VIRIDIANA POCT-GLUCOSE [id number] 21:50:00* Test Item Value Reference Range Interpretation Comments POC-GLUCOSE METER (BEAKER) (test code = 1538) 139 mg/dL 70-110 H : TESTED AT [address], [address]: Systems Project Manager/Purchase Price Analyst ID = [id number] for ELLIOTT, MANNY POCT-GLUCOSE [id number] 18:45:00* Test Item Value Reference Range Interpretation Comments POC-GLUCOSE METER (BEAKER) (test code = 1538) 115 mg/dL 70-110 H : TESTED AT [address], [address]: Systems Project Manager/Purchase Price Analyst ID = [id number] for ANDRAE, YAO POCT-GLUCOSE [id number] 13:04:00* Test Item Value Reference Range Interpretation Comments POC-GLUCOSE METER (BEAKER) (test code = 1538) 172 mg/dL 70-110 H : TESTED AT [address], [address]: Systems Project Manager/Purchase Price Analyst ID = [id number] for SUKHDEV, VIRIDIANA POCT-GLUCOSE [id number] 10:05:00* Test Item Value Reference Range Interpretation Comments POC-GLUCOSE METER (BEAKER) (test code = 1538) 248 mg/dL 70-110 H : TESTED AT [address], [address]: Systems Project Manager/Purchase Price Analyst ID = [id number] for YAO ABEBE POCT-GLUCOSE [id number] 10:02:00* Test Item Value Reference Range Interpretation Comments POC-GLUCOSE METER (BEAKER) (test code = 1538) 163 mg/dL 70-110 H : TESTED AT [address], [address]: Systems Project Manager/Purchase Price Analyst ID = [id number] for VIRIDIANA SANTIZO WOUND CULTURE + GRAM [id number] 09:14:00* Test Item Value Reference Range Interpretation Comments CULTURE (BEAKER) (test code = 1095) A 3+ Escherichia coliAmpC Positive GRAM STAIN RESULT (BEAKER) (test code = 1123) 4+ WBCs GRAM STAIN RESULT (BEAKER) (test code = 613992) 3+ gram negative ro ds GRAM STAIN RESULT (BEAKER) (test code = 276319) 3+ gra m positive cocci in chains, pairs and clusters 4+ Skin floraPOCT-GLUCOSE [id number] 21:50:00* Test Item Value Reference Range Interpretation Comments POC-GLUCOSE METER (BEAKER) (test code = 1538) 236 mg/dL 70-110 H : TESTED AT [address], [address]: Systems Project Manager/Purchase Price Analyst ID = [id number] for CHEKO DURHAM POCT-GLUCOSE [id number] 17:11:00* Test Item Value Reference Range Interpretation Comments POC-GLUCOSE METER (BEAKER) (test code = 1538) 131 mg/dL 70-110 H : TESTED AT [address], [address]: Systems Project Manager/Purchase Price Analyst ID = [id number] for LAW GUPTA POCT-GLUCOSE [id number] 10:30:00* Test Item Value Reference Range Interpretation Comments POC-GLUCOSE METER (BEAKER) (test code = 1538) 220 mg/dL 70-110 H : TESTED AT [address], [address]: Systems Project Manager/Purchase Price Analyst ID = [id number] for LAW GUPTA CBC W/PLT COUNT & AUTO [id number] 09:39:00* Test Item Value Reference Range Interpretation Comments WHITE BLOOD CELL COUNT (BEAKER) (test code = 775) 11.2 K/ L 3.5- 10.5 H RED BLOOD CELL COUNT (BEAKER) (test code = 761) 3.77 M/ L 4.63-6 .08 L HEMOGLOBIN (BEAKER) (test code = 410) 8.9 GM/DL 13.7-17.5 L HEMATOCRIT (BEAKER) (test code = 411) 30.5 % 40.1-51.0 L MEAN CORPUSCULAR VOLUME (BEAKER) (test code = 753) 80.9 fL 79. 0-92.2 MEAN CORPUSCULAR HEMOGLOBIN (BEAKER) (test code = 751) 23.6 pg 25.7-32.2 L MEAN CORPUSCULAR HEMOGLOBIN CONC (BEAKER) (test code = 752) 29.2 GM/DL 32.3-36.5 L RED CELL DISTRIBUTION WIDTH (BEAKER) (test code = 412) 19.2 % 11.6-14.4 H PLATELET COUNT (BEAKER) (test code = 756) 791 K/CU MM 150-450 H MEAN PLATELET VOLUME (BEAKER) (test code = 754) 8.3 fL 9.4-12 .4 L NUCLEATED RED BLOOD CELLS (BEAKER) (test code = 413) 0 /100 WBC 0 -0 (CELLAVISION MANUAL DIFF)2019-12-05 09:39:00* Test Item Value Reference Range Interpretation Comments NEUTROPHILS - REL (CELLAVISION)(BEAKER) (test code = 2816) 48 % LYMPHOCYTES - REL (CELLAVISION)(BEAKER) (test code = 2817) 40 % MONOCYTES - REL (CELLAVISION)(BEAKER) (test code = 2818) 7 % EOSINOPHILS - REL (CELLAVISION)(BEAKER) (test code = 2819) 3 % ATYPICAL LYMPHOCYTES - REL (CELLAVISION)(BEAKER) (test code = 2829) 2 % 0-0 H NEUTROPHILS - ABS (CELLAVISION)(BEAKER) (test code = 2830) 5.38 K/ul 1.78-5.38 LYMPHOCYTES - ABS (CELLAVISION)(BEAKER) (test code = 2831) 4.48 K/ul 1.32-3.57 H MONOCYTES - ABS (CELLAVISION)(BEAKER) (test code = 2832) 0.78 K/uL 0.30-0.82 EOSINOPHILS - ABS (CELLAVISION)(BEAKER) (test code = 2834) 0.34 K/uL 0.04-0.54 ATYPICAL LYMPHOCYTES - ABS (CELLAVISION)(BEAKER) (test code = 2858) 0.22 K/uL 0.00-0.00 H TOTAL COUNTED (BEAKER) (test code = 1351) 100 WBC MORPHOLOGY (BEAKER) (test code = 487) Normal PLT MORPHOLOGY (BEAKER) (test code = 486) Normal POLYCHROMATOPHILLIC RBCS(BEAKER) (test code = 478) 1+ few HYPOCHROMIA (BEAKER) (test code = 963) 1+ few ARTIFACT (CELLAVISION)(BEAKER) (test code = 3432) Present PLATELET CONCENTRATION (CELLAVISION)(BEAKER) (test code = 3438) Inc reased Systems Project Manager ID - Angela Mijares comments: Slide comments: POCT-GLUCOSE METER 2019-12-05 07:45:00* Test Item Value Reference Range Interpretation Comments POC-GLUCOSE METER (BEAKER) (test code = 1538) 136 mg/dL 70-110 H : TESTED AT [facility] [address] [facility], [address]: Systems Project Manager/Purchase Price Analyst ID = [id number] for LAW GUPTA [id number] 04:52:00* Test Item Value Reference Range Interpretation Comments MAGNESIUM (BEAKER) (test code = 627) 2.1 mg/dL 1.6-2.6 Systems Project Manager ID - FLOR MBASIC METABOLIC [id number] 04:52:00* Test Item Value Reference Range Interpretation Comments SODIUM (BEAKER) (test code = 381) 137 meq/L 136-145 POTASSIUM (BEAKER) (test code = 379) 4.2 meq/L 3.5-5.1 CHLORIDE (BEAKER) (test code = 382) 102 meq/L 98-107 CO2 (BEAKER) (test code = 355) 24 meq/L 22-29 BLOOD UREA NITROGEN (BEAKER) (test code = 354) 20 mg/dL 7-21 CREATININE (BEAKER) (test code = 358) 0.77 mg/dL 0.57-1.25 GLUCOSE RANDOM (BEAKER) (test code = 652) 151 mg/dL 70-105 H CALCIUM (BEAKER) (test code = 697) 9.0 mg/dL 8.4-10.2 EGFR (BEAKER) (test code = 1092) 113 mL/min/1.73 sq m ESTIMATED GFR IS NOT ACCURATE CREATININE CLEARANCE IN PREDICTING GLOMERULAR FILTRATION RATE. ESTIMATED GFR IS NOT APPLICABLE FOR DIALYSIS PATIENTS. Systems Project Manager ID - FLOR MPOCT-GLUCOSE [id number] 22:54:00* Test Item Value Reference Range Interpretation Comments POC-GLUCOSE METER (BEAKER) (test code = 1538) 222 mg/dL 70-110 H : TESTED AT [address], [address]: Systems Project Manager/Purchase Price Analyst ID = [id number] for CHEKO DURHAM POCT-GLUCOSE [id number] 22:14:00* Test Item Value Reference Range Interpretation Comments POC-GLUCOSE METER (BEAKER) (test code = 1538) > mg/dL 70-110 HH : Notified RN/MD: TESTED AT [address], [address]: Systems Project Manager/Purchase Price Analyst ID = [id number] for CHEKO DURHAM POCT-GLUCOSE [id number] 17:38:00* Test Item Value Reference Range Interpretation Comments POC-GLUCOSE METER (BEAKER) (test code = 1538) 140 mg/dL 70-110 H : TESTED AT [address], [address]: Systems Project Manager/Purchase Price Analyst ID = [id number] for OMAIRA LOBATO BLOOD [id number] 12:00:00* Test Item Value Reference Range Interpretation Comments CULTURE (BEAKER) (test code = 1095) No growth in 5 days BLOOD [id number] 12:00:00* Test Item Value Reference Range Interpretation Comments CULTURE (BEAKER) (test code = 1095) No growth in 5 days POCT-GLUCOSE [id number] 11:13:00* Test Item Value Reference Range Interpretation Comments POC-GLUCOSE METER (BEAKER) (test code = 1538) 241 mg/dL 70-110 H : TESTED AT [address], [address]: Systems Project Manager/Purchase Price Analyst ID = [id number] for LAW GUPTA CBC W/PLT COUNT & AUTO [id number] 09:33:00* Test Item Value Reference Range Interpretation Comments WHITE BLOOD CELL COUNT (BEAKER) (test code = 775) 11.3 K/ L 3.5- 10.5 H RED BLOOD CELL COUNT (BEAKER) (test code = 761) 3.76 M/ L 4.63-6 .08 L HEMOGLOBIN (BEAKER) (test code = 410) 8.8 GM/DL 13.7-17.5 L HEMATOCRIT (BEAKER) (test code = 411) 30.3 % 40.1-51.0 L MEAN CORPUSCULAR VOLUME (BEAKER) (test code = 753) 80.6 fL 79. 0-92.2 MEAN CORPUSCULAR HEMOGLOBIN (BEAKER) (test code = 751) 23.4 pg 25.7-32.2 L MEAN CORPUSCULAR HEMOGLOBIN CONC (BEAKER) (test code = 752) 29.0 GM/DL 32.3-36.5 L RED CELL DISTRIBUTION WIDTH (BEAKER) (test code = 412) 19.2 % 11.6-14.4 H PLATELET COUNT (BEAKER) (test code = 756) 729 K/CU MM 150-450 H MEAN PLATELET VOLUME (BEAKER) (test code = 754) 8.3 fL 9.4-12 .4 L NUCLEATED RED BLOOD CELLS (BEAKER) (test code = 413) 0 /100 WBC 0 -0 (CELLAVISION MANUAL DIFF)2019-12-04 09:33:00* Test Item Value Reference Range Interpretation Comments NEUTROPHILS - REL (CELLAVISION)(BEAKER) (test code = 2816) 50 % LYMPHOCYTES - REL (CELLAVISION)(BEAKER) (test code = 2817) 41 % MONOCYTES - REL (CELLAVISION)(BEAKER) (test code = 2818) 5 % EOSINOPHILS - REL (CELLAVISION)(BEAKER) (test code = 2819) 2 % MYELOCYTES - REL (CELLAVISION)(BEAKER) (test code = 2822) 1 % 0-0 H BANDS - REL (CELLAVISION)(BEAKER) (test code = 2826) 1 % 0 -10 NEUTROPHILS - ABS (CELLAVISION)(BEAKER) (test code = 2830) 5.65 K/ul 1.78-5.38 H LYMPHOCYTES - ABS (CELLAVISION)(BEAKER) (test code = 2831) 4.63 K/ul 1.32-3.57 H MONOCYTES - ABS (CELLAVISION)(BEAKER) (test code = 2832) 0.57 K/uL 0.30-0.82 EOSINOPHILS - ABS (CELLAVISION)(BEAKER) (test code = 2834) 0.23 K/uL 0.04-0.54 MYELOCYTES-ABS (CELLAVISION)(BEAKER) (test code = 2837) 0.11 K/uL 0.00-0.00 H BANDS - ABS (CELLAVISION)(BEAKER) (test code = 2840) 0.11 K/uL 0 .00-0.80 TOTAL COUNTED (BEAKER) (test code = 1351) 100 WBC MORPHOLOGY (BEAKER) (test code = 487) Normal PLT MORPHOLOGY (BEAKER) (test code = 486) Normal POLYCHROMATOPHILLIC RBCS(BEAKER) (test code = 478) 2+ moderate ANISOCYTOSIS (BEAKER) (test code = 961) 1+ few MICROCYTES (BEAKER) (test code = 965) 1+ few ARTIFACT (CELLAVISION)(BEAKER) (test code = 3432) Present PLATELET CONCENTRATION (CELLAVISION)(BEAKER) (test code = 3438) Inc reased Systems Project Manager ID - Vera OverholtUser comments: Slide comments: POCT-GLUCOSE METER 2019-12-04 08:04:00* Test Item Value Reference Range Interpretation Comments POC-GLUCOSE METER (BEAKER) (test code = 1538) 155 mg/dL 70-110 H : TESTED AT [facility] [address] [facility], [address]: Systems Project Manager/Purchase Price Analyst ID = [id number] for LAW GUPTA [id number] 06:56:00* Test Item Value Reference Range Interpretation Comments MAGNESIUM (BEAKER) (test code = 627) 2.3 mg/dL 1.6-2.6 Systems Project Manager ID - DELICIA FBASIC METABOLIC [id number] 06:56:00* Test Item Value Reference Range Interpretation Comments SODIUM (BEAKER) (test code = 381) 135 meq/L 136-145 L POTASSIUM (BEAKER) (test code = 379) 4.0 meq/L 3.5-5.1 CHLORIDE (BEAKER) (test code = 382) 101 meq/L 98-107 CO2 (BEAKER) (test code = 355) 24 meq/L 22-29 BLOOD UREA NITROGEN (BEAKER) (test code = 354) 19 mg/dL 7-21 CREATININE (BEAKER) (test code = 358) 0.63 mg/dL 0.57-1.25 GLUCOSE RANDOM (BEAKER) (test code = 652) 133 mg/dL 70-105 H CALCIUM (BEAKER) (test code = 697) 9.0 mg/dL 8.4-10.2 EGFR (BEAKER) (test code = 1092) 143 mL/min/1.73 sq m ESTIMATED GFR IS NOT ACCURATE CREATININE CLEARANCE IN PREDICTING GLOMERULAR FILTRATION RATE. ESTIMATED GFR IS NOT APPLICABLE FOR DIALYSIS PATIENTS. Systems Project Manager LISA NESBITT EPATIC FUNCTION [id number] 06:56:00* Test Item Value Reference Range Interpretation Comments TOTAL PROTEIN (BEAKER) (test code = 770) 8.1 gm/dL 6.0-8.3 ALBUMIN (BEAKER) (test code = 1145) 3.1 g/dL 3.5-5.0 L BILIRUBIN TOTAL (BEAKER) (test code = 377) 0.2 mg/dL 0.2-1.2 BILIRUBIN DIRECT (BEAKER) (test code = 706) 0.2 mg/dL 0.1-0.5 ALKALINE PHOSPHATASE (BEAKER) (test code = 346) 408 U/L 40-150 H AST (SGOT) (BEAKER) (test code = 353) 65 U/L 5-34 H ALT (SGPT) (BEAKER) (test code = 347) 86 U/L 6-55 H Systems Project Manager ID Florence NESBITT FPOCT-GLUCOSE [id number] 22:03:00* Test Item Value Reference Range Interpretation Comments POC-GLUCOSE METER (BEAKER) (test code = 1538) 134 mg/dL 70-110 H : TESTED AT [facility] [address] [facility], [address]: Systems Project Manager/Purchase Price Analyst ID = [id number] for NIECY NUNO POCT-GLUCOSE [id number] 18:29:00* Test Item Value Reference Range Interpretation Comments POC-GLUCOSE METER (BEAKER) (test code = 1538) 128 mg/dL 70-110 H : TESTED AT [facility] [address] [facility], [address]: Systems Project Manager/Purchase Price Analyst ID = [id number] for Zoya Osorio POCT-GLUCOSE [id number] 12:36:00* Test Item Value Reference Range Interpretation Comments POC-GLUCOSE METER (BEAKER) (test code = 1538) 204 mg/dL 70-110 H : TESTED AT [place] [id number] [facility], [address]: Systems Project Manager/Purchase Price Analyst ID = [id number] for VIRIDIANA SANTIZO RAD, CHEST, 1 VIEW, NON [id number] 11:05:00Reason for exam:->post picc placementShould this be performed at the bedside?->YesFINAL REPORT Chest one view. Clinical history: post picc placement Comparison: November 29, 2019 Discussion: A frontal chest is provided. Cardiomediastinal contours are unremarkable. A right IJ line projects over the proximal SVC, and there is interval placement of left PICC line tip projects over the cavoatrial junction. There is mild degree of vascular prominence. A small right effusion is present. No new consolidation. No pneumothorax. Osseous structures appear intact. Signed: Slime Perales Verified Date/Time: 12/03/2019 11:05:17 Reading Location: [address] Ortho Consult Reading Room OMYCIN LEVEL, TROUGH 2019-12-03 08:59:00* Test Item Value Reference Range Interpretation Comments VANCOMYCIN TROUGH (BEAKER) (test code = 522) 9.8 ug/mL 10.0-20.0 L Systems Project Manager ID - FLOR MPOCT-GLUCOSE [id number] 08:08:00* Test Item Value Reference Range Interpretation Comments POC-GLUCOSE METER (BEAKER) (test code = 1538) 153 mg/dL 70-110 H : TESTED AT [facility] [address] [facility], [address]: Systems Project Manager/Purchase Price Analyst ID = [id number] for VIRIDIANA SANTIZO CBC W/PLT COUNT & AUTO [id number] 08:04:00* Test Item Value Reference Range Interpretation Comments WHITE BLOOD CELL COUNT (BEAKER) (test code = 775) 10.3 K/ L 3.5- 10.5 RED BLOOD CELL COUNT (BEAKER) (test code = 761) 3.61 M/ L 4.63-6 .08 L HEMOGLOBIN (BEAKER) (test code = 410) 8.3 GM/DL 13.7-17.5 L HEMATOCRIT (BEAKER) (test code = 411) 29.1 % 40.1-51.0 L MEAN CORPUSCULAR VOLUME (BEAKER) (test code = 753) 80.6 fL 79. 0-92.2 MEAN CORPUSCULAR HEMOGLOBIN (BEAKER) (test code = 751) 23.0 pg 25.7-32.2 L MEAN CORPUSCULAR HEMOGLOBIN CONC (BEAKER) (test code = 752) 28.5 GM/DL 32.3-36.5 L RED CELL DISTRIBUTION WIDTH (BEAKER) (test code = 412) 19.0 % 11.6-14.4 H PLATELET COUNT (BEAKER) (test code = 756) 665 K/CU MM 150-450 H MEAN PLATELET VOLUME (BEAKER) (test code = 754) 8.3 fL 9.4-12 .4 L NUCLEATED RED BLOOD CELLS (BEAKER) (test code = 413) 0 /100 WBC 0 -0 NEUTROPHILS RELATIVE PERCENT (BEAKER) (test code = 429) 52 % LYMPHOCYTES RELATIVE PERCENT (BEAKER) (test code = 430) 35 % MONOCYTES RELATIVE PERCENT (BEAKER) (test code = 431) 10 % EOSINOPHILS RELATIVE PERCENT (BEAKER) (test code = 432) 2 % BASOPHILS RELATIVE PERCENT (BEAKER) (test code = 437) 0 % NEUTROPHILS ABSOLUTE COUNT (BEAKER) (test code = 670) 5.33 K/ L 1.78-5.38 LYMPHOCYTES ABSOLUTE COUNT (BEAKER) (test code = 414) 3.55 K/ L 1.32-3.57 MONOCYTES ABSOLUTE COUNT (BEAKER) (test code = 415) 0.99 K/ L 0. 30-0.82 H EOSINOPHILS ABSOLUTE COUNT (BEAKER) (test code = 416) 0.25 K/ L 0.04-0.54 BASOPHILS ABSOLUTE COUNT (BEAKER) (test code = 417) 0.04 K/ L 0. 01-0.08 IMMATURE GRANULOCYTES-RELATIVE PERCENT (BEAKER) (test code = 2801) 1 % 0-1 [id number] 07:00:00* Test Item Value Reference Range Interpretation Comments MAGNESIUM (BEAKER) (test code = 627) 2.3 mg/dL 1.6-2.6 Systems Project Manager ID - FLOR MBASIC METABOLIC [id number] 07:00:00* Test Item Value Reference Range Interpretation Comments SODIUM (BEAKER) (test code = 381) 136 meq/L 136-145 POTASSIUM (BEAKER) (test code = 379) 4.1 meq/L 3.5-5.1 CHLORIDE (BEAKER) (test code = 382) 101 meq/L 98-107 CO2 (BEAKER) (test code = 355) 26 meq/L 22-29 BLOOD UREA NITROGEN (BEAKER) (test code = 354) 13 mg/dL 7-21 CREATININE (BEAKER) (test code = 358) 0.62 mg/dL 0.57-1.25 GLUCOSE RANDOM (BEAKER) (test code = 652) 160 mg/dL 70-105 H CALCIUM (BEAKER) (test code = 697) 8.8 mg/dL 8.4-10.2 EGFR (BEAKER) (test code = 1092) 145 mL/min/1.73 sq m ESTIMATED GFR IS NOT ACCURATE CREATININE CLEARANCE IN PREDICTING GLOMERULAR FILTRATION RATE. ESTIMATED GFR IS NOT APPLICABLE FOR DIALYSIS PATIENTS. Systems Project Manager ID - FLOR MPOCT-GLUCOSE [id number] 23:43:00* Test Item Value Reference Range Interpretation Comments POC-GLUCOSE METER (BEAKER) (test code = 1538) 259 mg/dL 70-110 H : TESTED AT [facility] [address] [facility], [address]: Systems Project Manager/Purchase Price Analyst ID = [id number] for NIECY NUNO POCT-GLUCOSE [id number] 18:18:00* Test Item Value Reference Range Interpretation Comments POC-GLUCOSE METER (BEAKER) (test code = 1538) 105 mg/dL 70-110 : TESTED AT [facility] [address] [facility], [address]: Systems Project Manager/Purchase Price Analyst ID = [id number] for VIRIDIANA SANTIZO POCT-GLUCOSE [id number] 12:57:00* Test Item Value Reference Range Interpretation Comments POC-GLUCOSE METER (BEAKER) (test code = 1538) 134 mg/dL 70-110 H : TESTED AT [facility] [address] [facility] [place], [address]: Systems Project Manager/Purchase Price Analyst ID = [id number] for VIRIDIANA SANTIZO WOUND CULTURE + GRAM [id number] 11:27:00* Test Item Value Reference Range Interpretation Comments CULTURE (BEAKER) (test code = 1095) METHICILLIN RESISTANT ST APHYLOCOCCUS AUREUS A 4+ Methicillin resistant Sta phylococcus aureus Clindamycin (test code = 10) S Erythromycin (test code = 4) R Linezolid (test code = 40) S Nitrofurantoin (test code = 23) S Oxacillin (test code = 14) R Rifampin (test code = 43) S Tetracycline (test code = 2) S Trimethoprim + Sulfamethoxazole (test code = 47) S Vancomycin (test code = 13) S CULTURE (BEAKER) (test code = 1095) A 4+ Beta-hemolytic streptococcus group B, by serological grouping CULTURE (AzingoAKER) (test code = 1095) PSEUDOMONAS AERUGINOSA A 4+ Pseudomonas aeruginosa Amikacin (test code = 1) Susceptible 0-16 , Resistant <0 or >16 S Aztreonam (test code = 32) Susceptible 0-8 , Resistant <0 or >8 R Cefepime (test code = 51) Susceptible 0-8 , Resistant <0 or >8 R Ceftazidime (test code = 27) Susceptible 0-8 , Resista nt <0 or >8 R Ciprofloxacin (test code = 7) Susceptible 0-0.5 , Resi stant <0 or >.5 R Gentamicin (test code = 18) Susceptible 0-4 , Resistan t <0 or >4 S Levofloxacin (test code = 22) Susceptible 0-1 , Resist ant <0 or >1 R Meropenem (test code = 34) Susceptible 0-2 , Resistant <0 or >2 R Piperacillin (test code = 24) Susceptible 0-16 , Resis tant <0 or >16 R Piperacillin + Tazobactam (test code = 29) Susceptible 0-16 , Resistant <0 or >16 R Tobramycin (test code = 25) Susceptible 0-4 , Resistan t <0 or >4 S Ceftazidime/Avibactam (test code = 250) Susceptible <= 8 , Resistant >8 S Ceftolozane/Tazobactam (test code = 249) Susceptible < =4 , Resistant >4 S GRAM STAIN RESULT (BEAKER) (test code = 1123) 2+ WBCs GRAM STAIN RESULT (BEAKER) (test code = 172589) 2+ gram negative ro ds GRAM STAIN RESULT (BEAKER) (test code = 842207) 2+ gra m positive cocci in pairs and clusters 4+ Skin floraCBC W/PLT COUNT & AUTO [id number] 10:21:00* Test Item Value Reference Range Interpretation Comments WHITE BLOOD CELL COUNT (BEAKER) (test code = 775) 8.5 K/ L 3.5- 10.5 RED BLOOD CELL COUNT (BEAKER) (test code = 761) 3.47 M/ L 4.63-6 .08 L HEMOGLOBIN (BEAKER) (test code = 410) 8.1 GM/DL 13.7-17.5 L HEMATOCRIT (BEAKER) (test code = 411) 28.0 % 40.1-51.0 L MEAN CORPUSCULAR VOLUME (BEAKER) (test code = 753) 80.7 fL 79. 0-92.2 MEAN CORPUSCULAR HEMOGLOBIN (BEAKER) (test code = 751) 23.3 pg 25.7-32.2 L MEAN CORPUSCULAR HEMOGLOBIN CONC (BEAKER) (test code = 752) 28.9 GM/DL 32.3-36.5 L RED CELL DISTRIBUTION WIDTH (BEAKER) (test code = 412) 19.0 % 11.6-14.4 H PLATELET COUNT (BEAKER) (test code = 756) 582 K/CU MM 150-450 H MEAN PLATELET VOLUME (BEAKER) (test code = 754) 8.4 fL 9.4-12 .4 L NUCLEATED RED BLOOD CELLS (BEAKER) (test code = 413) 0 /100 WBC 0 -0 (CELLAVISION MANUAL DIFF)2019-12-02 10:21:00* Test Item Value Reference Range Interpretation Comments NEUTROPHILS - REL (CELLAVISION)(BEAKER) (test code = 2816) 48 % LYMPHOCYTES - REL (CELLAVISION)(BEAKER) (test code = 2817) 42 % MONOCYTES - REL (CELLAVISION)(BEAKER) (test code = 2818) 7 % EOSINOPHILS - REL (CELLAVISION)(BEAKER) (test code = 2819) 1 % BASOPHILS - REL (CELLAVISION)(BEAKER) (test code = 2820) 1 % ATYPICAL LYMPHOCYTES - REL (CELLAVISION)(BEAKER) (test code = 2829) 1 % 0-0 H NEUTROPHILS - ABS (CELLAVISION)(BEAKER) (test code = 2830) 4.08 K/ul 1.78-5.38 LYMPHOCYTES - ABS (CELLAVISION)(BEAKER) (test code = 2831) 3.57 K/ul 1.32-3.57 MONOCYTES - ABS (CELLAVISION)(BEAKER) (test code = 2832) 0.60 K/uL 0.30-0.82 EOSINOPHILS - ABS (CELLAVISION)(BEAKER) (test code = 2834) 0.09 K/uL 0.04-0.54 BASOPHILS - ABS (CELLAVISION)(BEAKER) (test code = 2835) 0.09 K/uL 0.01-0.08 H ATYPICAL LYMPHOCYTES - ABS (CELLAVISION)(BEAKER) (test code = 2858) 0.09 K/uL 0.00-0.00 H TOTAL COUNTED (BEAKER) (test code = 1351) 100 PLT MORPHOLOGY (BEAKER) (test code = 486) Normal TOXIC GRANULATION (BEAKER) (test code = 771) Present POLYCHROMATOPHILLIC RBCS(BEAKER) (test code = 478) 1+ few HYPOCHROMIA (BEAKER) (test code = 963) 1+ few ANISOCYTOSIS (BEAKER) (test code = 961) 1+ few ARTIFACT (CELLAVISION)(BEAKER) (test code = 3432) Present PLATELET CONCENTRATION (CELLAVISION)(BEAKER) (test code = 3438) Inc reased Systems Project Manager ID - Varsha Moore comments: Slide comments: POCT-GLUCOSE [id number] 08:16:00* Test Item Value Reference Range Interpretation Comments POC-GLUCOSE METER (BEAKER) (test code = 1538) 184 mg/dL 70-110 H : TESTED AT [facility] [address] [facility], [address]: Systems Project Manager/Purchase Price Analyst ID = [id number] for VIRIDIANA SANTIZO [id number] 07:19:00* Test Item Value Reference Range Interpretation Comments MAGNESIUM (BEAKER) (test code = 627) 2.1 mg/dL 1.6-2.6 Systems Project Manager ID - FLOR MBASIC METABOLIC [id number] 07:19:00* Test Item Value Reference Range Interpretation Comments SODIUM (BEAKER) (test code = 381) 135 meq/L 136-145 L POTASSIUM (BEAKER) (test code = 379) 4.0 meq/L 3.5-5.1 CHLORIDE (BEAKER) (test code = 382) 99 meq/L 98-107 CO2 (BEAKER) (test code = 355) 26 meq/L 22-29 BLOOD UREA NITROGEN (BEAKER) (test code = 354) 12 mg/dL 7-21 CREATININE (BEAKER) (test code = 358) 0.65 mg/dL 0.57-1.25 GLUCOSE RANDOM (BEAKER) (test code = 652) 191 mg/dL 70-105 H CALCIUM (BEAKER) (test code = 697) 8.7 mg/dL 8.4-10.2 EGFR (BEAKER) (test code = 1092) 137 mL/min/1.73 sq m ESTIMATED GFR IS NOT ACCURATE CREATININE CLEARANCE IN PREDICTING GLOMERULAR FILTRATION RATE. ESTIMATED GFR IS NOT APPLICABLE FOR DIALYSIS PATIENTS. Systems Project Manager ID - FLOR MPOCT-GLUCOSE [id number] 20:54:00* Test Item Value Reference Range Interpretation Comments POC-GLUCOSE METER (BEAKER) (test code = 1538) 209 mg/dL 70-110 H : TESTED AT [place] [id number] [facility], [address]: Systems Project Manager/Purchase Price Analyst ID = [id number] for NIECY NUNO POCT-GLUCOSE [id number] 18:07:00* Test Item Value Reference Range Interpretation Comments POC-GLUCOSE METER (BEAKER) (test code = 1538) 132 mg/dL 70-110 H : TESTED AT [facility] [address] [facility], [address]: Systems Project Manager/Purchase Price Analyst ID = [id number] for VIRIDIANA SANTIZO CBC W/PLT COUNT & AUTO [id number] 14:08:00* Test Item Value Reference Range Interpretation Comments WHITE BLOOD CELL COUNT (BEAKER) (test code = 775) 9.1 K/ L 3.5- 10.5 RED BLOOD CELL COUNT (BEAKER) (test code = 761) 3.13 M/ L 4.63-6 .08 L HEMOGLOBIN (BEAKER) (test code = 410) 7.4 GM/DL 13.7-17.5 L HEMATOCRIT (BEAKER) (test code = 411) 25.3 % 40.1-51.0 L MEAN CORPUSCULAR VOLUME (BEAKER) (test code = 753) 80.8 fL 79. 0-92.2 MEAN CORPUSCULAR HEMOGLOBIN (BEAKER) (test code = 751) 23.6 pg 25.7-32.2 L MEAN CORPUSCULAR HEMOGLOBIN CONC (BEAKER) (test code = 752) 29.2 GM/DL 32.3-36.5 L RED CELL DISTRIBUTION WIDTH (BEAKER) (test code = 412) 19.0 % 11.6-14.4 H PLATELET COUNT (BEAKER) (test code = 756) 469 K/CU MM 150-450 H MEAN PLATELET VOLUME (BEAKER) (test code = 754) 8.4 fL 9.4-12 .4 L NUCLEATED RED BLOOD CELLS (BEAKER) (test code = 413) 0 /100 WBC 0 -0 (CELLAVISION MANUAL DIFF)2019-12-01 14:08:00* Test Item Value Reference Range Interpretation Comments NEUTROPHILS - REL (CELLAVISION)(BEAKER) (test code = 2816) 53 % LYMPHOCYTES - REL (CELLAVISION)(BEAKER) (test code = 2817) 40 % MONOCYTES - REL (CELLAVISION)(BEAKER) (test code = 2818) 5 % EOSINOPHILS - REL (CELLAVISION)(BEAKER) (test code = 2819) 1 % BASOPHILS - REL (CELLAVISION)(BEAKER) (test code = 2820) 1 % NEUTROPHILS - ABS (CELLAVISION)(BEAKER) (test code = 2830) 4.82 K/ul 1.78-5.38 LYMPHOCYTES - ABS (CELLAVISION)(BEAKER) (test code = 2831) 3.64 K/ul 1.32-3.57 H MONOCYTES - ABS (CELLAVISION)(BEAKER) (test code = 2832) 0.46 K/uL 0.30-0.82 EOSINOPHILS - ABS (CELLAVISION)(BEAKER) (test code = 2834) 0.09 K/uL 0.04-0.54 BASOPHILS - ABS (CELLAVISION)(BEAKER) (test code = 2835) 0.09 K/uL 0.01-0.08 H TOTAL COUNTED (BEAKER) (test code = 1351) 100 PLT MORPHOLOGY (BEAKER) (test code = 486) Normal TOXIC GRANULATION (BEAKER) (test code = 771) Present POLYCHROMATOPHILLIC RBCS(BEAKER) (test code = 478) 1+ few HYPOCHROMIA (BEAKER) (test code = 963) 1+ few ANISOCYTOSIS (BEAKER) (test code = 961) 1+ few ARTIFACT (CELLAVISION)(BEAKER) (test code = 3432) Present PLATELET CONCENTRATION (CELLAVISION)(BEAKER) (test code = 3438) Inc reased Systems Project Manager ID - Varsha Moore comments: Slide comments: POCT-GLUCOSE [id number] 12:31:00* Test Item Value Reference Range Interpretation Comments POC-GLUCOSE METER (BEAKER) (test code = 1538) 211 mg/dL 70-110 H : TESTED AT [address], [address]: Systems Project Manager/Purchase Price Analyst ID = [id number] for ROX DURHAM TSH/Free T4 If [id number] 10:46:00* Test Item Value Reference Range Interpretation Comments TSH (test code = 39715-8) 2.67 0.35- 4.94 uIU/mL TODD (test code = TODD) Systems Project Manager ID - NTP Lab Interpretation (test code = 62693-7) Normal [facility] T4 IF [id number] 10:46:00* Test Item Value Reference Range Interpretation Comments THYROID STIMULATING HORMONE (BEAKER) (test code = 772) 2.67 uIU/mL 0.35-4.94 Systems Project Manager ID - WCKTbnztbwtup2443-12-72 10:26:00* Test Item Value Reference Range Interpretation Comments Prealbumin (test code = 85897-7) 7 mg/dL 14-45 L TODD (test code = TODD) Systems Project Manager ID - NTP Lab Interpretation (test code = 86763-7) Abnormal [facility]MAGNESIUM2020-03-13 10:26:00* Test Item Value Reference Range Interpretation Comments MAGNESIUM (BEAKER) (test code = 627) 1.9 mg/dL 1.6-2.6 Systems Project Manager ID - NTPBASIC METABOLIC [id number] 10:26:00* Test Item Value Reference Range Interpretation Comments SODIUM (BEAKER) (test code = 381) 135 meq/L 136-145 L POTASSIUM (BEAKER) (test code = 379) 4.0 meq/L 3.5-5.1 CHLORIDE (BEAKER) (test code = 382) 100 meq/L 98-107 CO2 (BEAKER) (test code = 355) 27 meq/L 22-29 BLOOD UREA NITROGEN (BEAKER) (test code = 354) 9 mg/dL 7-21 CREATININE (BEAKER) (test code = 358) 0.67 mg/dL 0.57-1.25 GLUCOSE RANDOM (BEAKER) (test code = 652) 266 mg/dL 70-105 H CALCIUM (BEAKER) (test code = 697) 8.4 mg/dL 8.4-10.2 EGFR (BEAKER) (test code = 1092) 133 mL/min/1.73 sq m ESTIMATED GFR IS NOT ACCURATE CREATININE CLEARANCE IN PREDICTING GLOMERULAR FILTRATION RATE. ESTIMATED GFR IS NOT APPLICABLE FOR DIALYSIS PATIENTS. Systems Project Manager ID - NTPC-REACTIVE [id number] 10:26:00* Test Item Value Reference Range Interpretation Comments C-REACTIVE PROTEIN (BEAKER) (test code = 676) 19.81 mg/dL 0.00-0.5 0 H Systems Project Manager ID - [id number] 10:26:00* Test Item Value Reference Range Interpretation Comments PREALBUMIN (BEAKER) (test code = 586) 7 mg/dL 14-45 L Systems Project Manager ID - NTPPOCT-GLUCOSE [id number] 08:42:00* Test Item Value Reference Range Interpretation Comments POC-GLUCOSE METER (BEAKER) (test code = 1538) 321 mg/dL 70-110 H : TESTED AT [address], [address]: Systems Project Manager/Purchase Price Analyst ID = [id number] for VIRIDIANA SANTIZO POCT-GLUCOSE [id number] 22:05:00* Test Item Value Reference Range Interpretation Comments POC-GLUCOSE METER (BEAKER) (test code = 1538) 355 mg/dL 70-110 H : TESTED AT [facility] [address] [facility], [address]: Systems Project Manager/Purchase Price Analyst ID = [id number] for ROXANNE HOANG POCT-GLUCOSE [id number] 18:47:00* Test Item Value Reference Range Interpretation Comments POC-GLUCOSE METER (BEAKER) (test code = 1538) 191 mg/dL 70-110 H : TESTED AT [place] [id number] [facility], [address]: Systems Project Manager/Purchase Price Analyst ID = [id number] for LAW GUPTA POCT-GLUCOSE [id number] 14:18:00* Test Item Value Reference Range Interpretation Comments POC-GLUCOSE METER (BEAKER) (test code = 1538) 157 mg/dL 70-110 H : TESTED AT [place] [id number] [facility], [address]: Systems Project Manager/Purchase Price Analyst ID = [id number] for LAW GUPTA [id number] 10:18:00* Test Item Value Reference Range Interpretation Comments MAGNESIUM (BEAKER) (test code = 627) 1.9 mg/dL 1.6-2.6 Systems Project Manager ID Florence NESBITT FBASIC METABOLIC [id number] 10:18:00* Test Item Value Reference Range Interpretation Comments SODIUM (BEAKER) (test code = 381) 133 meq/L 136-145 L POTASSIUM (BEAKER) (test code = 379) 4.1 meq/L 3.5-5.1 CHLORIDE (BEAKER) (test code = 382) 99 meq/L 98-107 CO2 (BEAKER) (test code = 355) 24 meq/L 22-29 BLOOD UREA NITROGEN (BEAKER) (test code = 354) 8 mg/dL 7-21 CREATININE (BEAKER) (test code = 358) 0.69 mg/dL 0.57-1.25 GLUCOSE RANDOM (BEAKER) (test code = 652) 232 mg/dL 70-105 H CALCIUM (BEAKER) (test code = 697) 8.5 mg/dL 8.4-10.2 EGFR (BEAKER) (test code = 1092) 128 mL/min/1.73 sq m ESTIMATED GFR IS NOT ACCURATE CREATININE CLEARANCE IN PREDICTING GLOMERULAR FILTRATION RATE. ESTIMATED GFR IS NOT APPLICABLE FOR DIALYSIS PATIENTS. Systems Project Manager ID Florence NESBITT EPATIC FUNCTION [id number] 10:18:00* Test Item Value Reference Range Interpretation Comments TOTAL PROTEIN (BEAKER) (test code = 770) 7.1 gm/dL 6.0-8.3 ALBUMIN (BEAKER) (test code = 1145) 2.7 g/dL 3.5-5.0 L BILIRUBIN TOTAL (BEAKER) (test code = 377) 0.3 mg/dL 0.2-1.2 BILIRUBIN DIRECT (BEAKER) (test code = 706) 0.2 mg/dL 0.1-0.5 ALKALINE PHOSPHATASE (BEAKER) (test code = 346) 274 U/L 40-150 H AST (SGOT) (BEAKER) (test code = 353) 26 U/L 5-34 ALT (SGPT) (BEAKER) (test code = 347) 21 U/L 6-55 Systems Project Manager LISA NESBITT FHEMOGLOBIN [id number] 09:52:00* Test Item Value Reference Range Interpretation Comments HEMOGLOBIN A1C (BEAKER) (test code = 368) 9.6 % 4.3-6.1 H CBC W/PLT COUNT & AUTO [id number] 08:48:00* Test Item Value Reference Range Interpretation Comments WHITE BLOOD CELL COUNT (BEAKER) (test code = 775) 9.2 K/ L 3.5- 10.5 RED BLOOD CELL COUNT (BEAKER) (test code = 761) 3.43 M/ L 4.63-6 .08 L HEMOGLOBIN (BEAKER) (test code = 410) 8.0 GM/DL 13.7-17.5 L HEMATOCRIT (BEAKER) (test code = 411) 27.9 % 40.1-51.0 L MEAN CORPUSCULAR VOLUME (BEAKER) (test code = 753) 81.3 fL 79. 0-92.2 MEAN CORPUSCULAR HEMOGLOBIN (BEAKER) (test code = 751) 23.3 pg 25.7-32.2 L MEAN CORPUSCULAR HEMOGLOBIN CONC (BEAKER) (test code = 752) 28.7 GM/DL 32.3-36.5 L RED CELL DISTRIBUTION WIDTH (BEAKER) (test code = 412) 19.4 % 11.6-14.4 H PLATELET COUNT (BEAKER) (test code = 756) 511 K/CU MM 150-450 H MEAN PLATELET VOLUME (BEAKER) (test code = 754) 8.5 fL 9.4-12 .4 L NUCLEATED RED BLOOD CELLS (BEAKER) (test code = 413) 0 /100 WBC 0 -0 NEUTROPHILS RELATIVE PERCENT (BEAKER) (test code = 429) 49 % LYMPHOCYTES RELATIVE PERCENT (BEAKER) (test code = 430) 33 % MONOCYTES RELATIVE PERCENT (BEAKER) (test code = 431) 16 % EOSINOPHILS RELATIVE PERCENT (BEAKER) (test code = 432) 1 % BASOPHILS RELATIVE PERCENT (BEAKER) (test code = 437) 0 % NEUTROPHILS ABSOLUTE COUNT (BEAKER) (test code = 670) 4.51 K/ L 1.78-5.38 LYMPHOCYTES ABSOLUTE COUNT (BEAKER) (test code = 414) 3.08 K/ L 1.32-3.57 MONOCYTES ABSOLUTE COUNT (BEAKER) (test code = 415) 1.46 K/ L 0. 30-0.82 H EOSINOPHILS ABSOLUTE COUNT (BEAKER) (test code = 416) 0.11 K/ L 0.04-0.54 BASOPHILS ABSOLUTE COUNT (BEAKER) (test code = 417) 0.04 K/ L 0. 01-0.08 IMMATURE GRANULOCYTES-RELATIVE PERCENT (BEAKER) (test code = 2801) 0 % 0-1 POCT-GLUCOSE [id number] 07:37:00* Test Item Value Reference Range Interpretation Comments POC-GLUCOSE METER (BEAKER) (test code = 1538) 222 mg/dL 70-110 H : TESTED AT [address], [address]: Systems Project Manager/Purchase Price Analyst ID = [id number] for ALONSO LAW POCT-GLUCOSE [id number] 22:01:00* Test Item Value Reference Range Interpretation Comments POC-GLUCOSE METER (BEAKER) (test code = 1538) 260 mg/dL 70-110 H : TESTED AT [address], [address]: Systems Project Manager/Purchase Price Analyst ID = [id number] for ROXANNE HOANG POCT-GLUCOSE [id number] 20:05:00* Test Item Value Reference Range Interpretation Comments POC-GLUCOSE METER (BEAKER) (test code = 1538) 327 mg/dL 70-110 H : TESTED AT [address], [address]: Systems Project Manager/Purchase Price Analyst ID = [id number] for MOY GALAVIZ POCT-GLUCOSE [id number] 18:47:00* Test Item Value Reference Range Interpretation Comments POC-GLUCOSE METER (BEAKER) (test code = 1538) 314 mg/dL 70-110 H : TESTED AT [facility] [address] [facility], [address]: Systems Project Manager/Purchase Price Analyst ID = [id number] for BHAVANA LAINEZ COMPREHENSIVE METABOLIC [id number] 10:59:00* Test Item Value Reference Range Interpretation Comments TOTAL PROTEIN (BEAKER) (test code = 770) 7.7 gm/dL 6.0-8.3 ALBUMIN (BEAKER) (test code = 1145) 3.0 g/dL 3.5-5.0 L ALKALINE PHOSPHATASE (BEAKER) (test code = 346) 343 U/L 40-150 H BILIRUBIN TOTAL (BEAKER) (test code = 377) 0.4 mg/dL 0.2-1.2 SODIUM (BEAKER) (test code = 381) 133 meq/L 136-145 L POTASSIUM (BEAKER) (test code = 379) 3.9 meq/L 3.5-5.1 CHLORIDE (BEAKER) (test code = 382) 98 meq/L 98-107 CO2 (BEAKER) (test code = 355) 26 meq/L 22-29 BLOOD UREA NITROGEN (BEAKER) (test code = 354) 8 mg/dL 7-21 CREATININE (BEAKER) (test code = 358) 0.80 mg/dL 0.57-1.25 GLUCOSE RANDOM (BEAKER) (test code = 652) 387 mg/dL 70-105 H CALCIUM (BEAKER) (test code = 697) 8.6 mg/dL 8.4-10.2 AST (SGOT) (BEAKER) (test code = 353) 15 U/L 5-34 ALT (SGPT) (BEAKER) (test code = 347) 18 U/L 6-55 EGFR (BEAKER) (test code = 1092) 108 mL/min/1.73 sq m ESTIMATED GFR IS NOT ACCURATE CREATININE CLEARANCE IN PREDICTING GLOMERULAR FILTRATION RATE. ESTIMATED GFR IS NOT APPLICABLE FOR DIALYSIS PATIENTS. Systems Project Manager ID - FLOR [id number] 10:53:00* Test Item Value Reference Range Interpretation Comments PARTIAL THROMBOPLASTIN TIME (BEAKER) (test code = 760) 44.4 seconds 22.5-36.0 H PROTHROMBIN TIME/[id number] 10:52:00* Test Item Value Reference Range Interpretation Comments PROTIME (BEAKER) (test code = 759) 15.8 seconds 11.9-14.2 H INR (BEAKER) (test code = 370) 1.3 <=5.9 Effective 02/15/2019: PT Reference Range ChangeNew: 11.9-14.2 Previous: 11.7-14. 7RECOMMENDED COUMADIN/WARFARIN INR THERAPY RANGESSTANDARD DOSE: 2.0-3.0 Include s: PROPHYLAXIS for venous thrombosis, systemic embolization; TREATMENT for venou s thrombosis and/or pulmonary embolus.HIGH RISK: Target INR is 2.5-3.5 for patie nts wiht mechanical heart valves.LACTIC ACID, [id number] 10:50:00* Test Item Value Reference Range Interpretation Comments LACTATE BLOOD VENOUS (2) (BEAKER) (test code = 2872) 1.1 mmol/L 0 .5-2.2 Systems Project Manager ID - FLOR ADAND, CHEST, 1 VIEW, NON [id number] 10:43:00Reason for exam:->Central lineShould this be performed at the bedside?->YesFINAL REPORT RAD, CHEST, 1 VIEW, NON DEPT INDICATION: Central line COMPARISON: August 31, 2018 FINDINGS: Portable frontal view of the chest. IMPRESSION: Support Lines: PICC tip has been removed. Right-sided central catheter tip overlies the SVC. Lungs and pleura: Mild bilateral subsegmental atelectasis No pneumothorax.Heart and mediastinum: Stable contours. Additiona l findings: None. Signed: Sofya Mejia MDReport Verified Date/Time: 11/29/19 10:43:26 Reading Location: [facility] Radiology Reading Room Electronical ly signed by: SOFYA MEJIA MD on 11/29/2019 10:43 AM CBC W/PLT COUNT & AUTO [id number] 10:42:00* Test Item Value Reference Range Interpretation Comments WHITE BLOOD CELL COUNT (BEAKER) (test code = 775) 10.4 K/ L 3.5- 10.5 RED BLOOD CELL COUNT (BEAKER) (test code = 761) 3.36 M/ L 4.63-6 .08 L HEMOGLOBIN (BEAKER) (test code = 410) 7.9 GM/DL 13.7-17.5 L HEMATOCRIT (BEAKER) (test code = 411) 26.9 % 40.1-51.0 L MEAN CORPUSCULAR VOLUME (BEAKER) (test code = 753) 80.1 fL 79. 0-92.2 MEAN CORPUSCULAR HEMOGLOBIN (BEAKER) (test code = 751) 23.5 pg 25.7-32.2 L MEAN CORPUSCULAR HEMOGLOBIN CONC (BEAKER) (test code = 752) 29.4 GM/DL 32.3-36.5 L RED CELL DISTRIBUTION WIDTH (BEAKER) (test code = 412) 19.1 % 11.6-14.4 H PLATELET COUNT (BEAKER) (test code = 756) 501 K/CU MM 150-450 H MEAN PLATELET VOLUME (BEAKER) (test code = 754) 8.3 fL 9.4-12 .4 L NUCLEATED RED BLOOD CELLS (BEAKER) (test code = 413) 0 /100 WBC 0 -0 NEUTROPHILS RELATIVE PERCENT (BEAKER) (test code = 429) 68 % LYMPHOCYTES RELATIVE PERCENT (BEAKER) (test code = 430) 20 % MONOCYTES RELATIVE PERCENT (BEAKER) (test code = 431) 11 % EOSINOPHILS RELATIVE PERCENT (BEAKER) (test code = 432) 0 % BASOPHILS RELATIVE PERCENT (BEAKER) (test code = 437) 0 % NEUTROPHILS ABSOLUTE COUNT (BEAKER) (test code = 670) 7.02 K/ L 1.78-5.38 H LYMPHOCYTES ABSOLUTE COUNT (BEAKER) (test code = 414) 2.08 K/ L 1.32-3.57 MONOCYTES ABSOLUTE COUNT (BEAKER) (test code = 415) 1.18 K/ L 0. 30-0.82 H EOSINOPHILS ABSOLUTE COUNT (BEAKER) (test code = 416) 0.03 K/ L 0.04-0.54 L BASOPHILS ABSOLUTE COUNT (BEAKER) (test code = 417) 0.04 K/ L 0. 01-0.08 IMMATURE GRANULOCYTES-RELATIVE PERCENT (BEAKER) (test code = 2801) 0 % 0-1 Central [id number] 09:32:38Asa Salinas MD 11/29/2019 12:37 PMCentral LineDate/Time: 11/29/2019 10:22 AMPerformed by: Asa Salinas MDAuthorized by: Asa Salinas MD Consent: Verbal consent obtained.Risks and benefits: risks, benefits and alternatives were discussedConsent given by: patientPatient identity confirmed: verbally with patientIndications: vascular accessAnesthesia: local infiltrationPreparation: skin prepped with ChloraPrepSkin prep agent dried: skin prep agent completely dried prior to procedureSterile barriers: all five maximum sterile barriers used - cap, mask, sterile gown, sterile gloves, and large sterile sheetHand hygiene: hand hygiene performed prior to central venous catheter insertionLocation details: right internal jugularPatient position: flatCatheter type: triple lumenCatheter size: 7.5 FrPre-procedure: landmarks identifiedUltrasound guidance: yesSterile ultrasound techniques: sterile gel and sterile probe covers were usedNumber of attempts: 1Successful placement: yesPost-procedure: line suturedImmediate Post- Procedure Note Assistants to the procedure: NonePre-procedure diagnosis: SEPSIS Post-procedure diagnosis: SEPSISProcedures Performed: Central LineSpecimens rahul silvia: NoneEstimated blood loss (mL): NoneComplications: NoneType of anesthesia: N oneGrafts or Implants: None [facility]Bedside Glucose 2019-11-16 16:19:00* Test Item Value Reference Range Interpretation Comments Bedside Glucose (test code = 12189-6) 248 70-120 H Meter ID: [id number] [facility]Pl[facility] 2019-11-16 08:54:00* Test Item Value Reference Range Interpretation Comments Platelet Estimate (test code = 89367-3) MARKEDLY INCREASED [facility]ate[facility] Morphology [id number] 08:54:00* Test Item Value Reference Range Interpretation Comments Platelet Morphology Comment (test code = 11765-2) NORMAL [facility]achiePolychromasia2020-02-27 08:54:00* Test Item Value Reference Range Interpretation Comments Polychromasia (test code = 20561-4) FEW [facility]ieHypochromasia2020-02-27 08:54:00* Test Item Value Reference Range Interpretation Comments Hypochromasia (test code = 728-6) SLIGHT [facility]ieAnisocytosis2020-02-27 08:54:00* Test Item Value Reference Range Interpretation Comments Anisocytosis (test code = 702-1) SLIGHT [facility]ieMicrocytosis2020-02-27 08:54:00* Test Item Value Reference Range Interpretation Comments Microcytosis (test code = 741-9) SLIGHT [facility]ieMacrocytosis2020-02-27 08:54:00* Test Item Value Reference Range Interpretation Comments Macrocytosis (test code = 738-5) SLIGHT [facility]ieRed Cell Morphology [id number] 08:54:00* Test Item Value Reference Range Interpretation Comments Red Cell Morphology Comment (test code = 6742-1) ABNORMAL [facility] [id number] 05:50:00* Test Item Value Reference Range Interpretation Comments Sodium Level (test code = 2951-2) 133 136-145 L [facility]iePotassium [id number] 05:50:00* Test Item Value Reference Range Interpretation Comments Potassium Level (test code = 2823-3) 4.0 3.5-5.1 [facility]ieChloride [id number] 05:50:00* Test Item Value Reference Range Interpretation Comments Chloride Level (test code = 2075-0) 102 98-107 [facility]achieCarbon Dioxide [id number] 05:50:00* Test Item Value Reference Range Interpretation Comments Carbon Dioxide Level (test code = 2028-9) 25 22-29 [facility]ieAnion Iuh1157-16-50 05:50:00* Test Item Value Reference Range Interpretation Comments Anion Gap (test code = 70681-4) 10.0 8-16 [facility]ieBlood Urea Tytffguq2574-02-92 05:50:00* Test Item Value Reference Range Interpretation Comments Blood Urea Nitrogen (test code = 3094-0) 13 7-26 [facility]Creatinine2020-02-27 05:50:00* Test Item Value Reference Range Interpretation Comments Creatinine (test code = 2160-0) 0.71 0.72-1.25 L [facility] [place]ieBUN/Creatinine [id number] 05:50:00* Test Item Value Reference Range Interpretation Comments BUN/Creatinine Ratio (test code = 3097-3) 18 03-14 [facility]ieEstimat Glomerular Filtration Rate 2019-11-16 05:50:00* Test Item Value Reference Range Interpretation Comments Estimat Glomerular Filtration Rate (test code = 350415025) > 60 >60 Ranges were taken from the National Kidney Disease Education Program and the [facility] [employer] literature.Reference ranges:60 or greater: Iubnnr87-10 ( for 3 consecutive months): Chronic kidney disease 15 or less: Kidney failureBaylor Scott & [facility] – [facility]axahachieGlucose Woqtq2593-04-47 05:50:00* Test Item Value Reference Range Interpretation Comments Glucose Level (test code = YQG4180) 201 74-118 H [facility] [place]ieCalcium Ozhmx1498-66-62 05:50:00* Test Item Value Reference Range Interpretation Comments Calcium Level (test code = 50467-5) 8.2 8.4-10.2 L [facility]iePhosphorus Zgpwe9354-12-85 05:50:00* Test Item Value Reference Range Interpretation Comments Phosphorus Level (test code = IOG0185) 3.5 2.3-4.7 [facility] [place]ieMagnesium Osdte2510-75-48 05:50:00* Test Item Value Reference Range Interpretation Comments Magnesium Level (test code = 01149-5) 2.1 1.3-2.1 [facility]ieWhite Blood [id number] 05:15:00* Test Item Value Reference Range Interpretation Comments White Blood Count (test code = 6690-2) 12.87 4.8-10.8 H [facility] [place]ieRed Blood Hfwjh1564-47-28 05:15:00* Test Item Value Reference Range Interpretation Comments Red Blood Count (test code = 789-8) 3.67 4.3-5.7 L [facility]ieHemoglobin2020-02-27 05:15:00* Test Item Value Reference Range Interpretation Comments Hemoglobin (test code = 04825-4) 8.3 14.0-18.0 L [facility]Hematocrit2020-02-27 05:15:00* Test Item Value Reference Range Interpretation Comments Hematocrit (test code = 4544-3) 29.7 38.2-49.6 L [facility]ieMean Corpuscular Tbcjmu5737-51-71 05:15:00* Test Item Value Reference Range Interpretation Comments Mean Corpuscular Volume (test code = 787-2) 80.9 81-99 L [facility]Mean Corpuscular Ifviauwxfj0476-47-59 05:15:00* Test Item Value Reference Range Interpretation Comments Mean Corpuscular Hemoglobin (test code = 785-6) 22.6 28-32 L [facility]Mean Corpuscular Hemoglobin Concent 2019-11-16 05:15:00* Test Item Value Reference Range Interpretation Comments Mean Corpuscular Hemoglobin Concent (test code = 786-4) 27.9 31-35 L [facility]ieRed Cell Distribution Ypcjz4650-76-20 05:15:00* Test Item Value Reference Range Interpretation Comments Red Cell Distribution Width (test code = 87063-2) 19.4 11.7 -14.4 H [facility]iePlatelet Jtfjm6269-59-68 05:15:00* Test Item Value Reference Range Interpretation Comments Platelet Count (test code = 777-3) 901 140-360 H [facility]ieNeutrophils (%) (Auto)2019-11-16 05:15:00 * Test Item Value Reference Range Interpretation Comments Neutrophils (%) (Auto) (test code = 29191-6) 57.5 38.7-80.0 [facility]ieLymphocytes (%) (Auto)2019-11-16 05:15:00 * Test Item Value Reference Range Interpretation Comments Lymphocytes (%) (Auto) (test code = 736-9) 29.8 18.0-39.1 [facility]Monocytes (%) (Auto)2019-11-16 05:15:00* Test Item Value Reference Range Interpretation Comments Monocytes (%) (Auto) (test code = 5905-5) 9.9 4.4-11.3 [facility]Eosinophils (%) (Auto)2019-11-16 05:15:00 * Test Item Value Reference Range Interpretation Comments Eosinophils (%) (Auto) (test code = 713-8) 1.5 0.0-6.0 [facility]Basophils (%) (Auto)2019-11-16 05:15:00* Test Item Value Reference Range Interpretation Comments Basophils (%) (Auto) (test code = 706-2) 0.3 0.0-1.0 [facility]ieIM GRANULOCYTES %2019-11-16 05:15:00* Test Item Value Reference Range Interpretation Comments IM GRANULOCYTES % (test code = IM GRANULOCYTES %) 1.0 0.0- 1.0 [facility]ieNeutrophils # (Auto)2019-11-16 05:15:00* Test Item Value Reference Range Interpretation Comments Neutrophils # (Auto) (test code = 751-8) 7.4 2.1-6.9 H [facility]ieLymphocytes # (Auto)2019-11-16 05:15:00* Test Item Value Reference Range Interpretation Comments Lymphocytes # (Auto) (test code = 53491-5) 3.8 1.0-3.2 H [facility]Monocytes # (Auto)2019-11-16 05:15:00* Test Item Value Reference Range Interpretation Comments Monocytes # (Auto) (test code = 742-7) 1.3 0.2-0.8 H [facility]Eosinophils # (Auto)2019-11-16 05:15:00* Test Item Value Reference Range Interpretation Comments Eosinophils # (Auto) (test code = 711-2) 0.2 0.0-0.4 [facility]Basophils # (Auto)2019-11-16 05:15:00* Test Item Value Reference Range Interpretation Comments Basophils # (Auto) (test code = 704-7) 0.0 0.0-0.1 [facility]ieAbsolute Immature Granulocyte (auto 2019-11-16 05:15:00* Test Item Value Reference Range Interpretation Comments Absolute Immature Granulocyte (auto (munira t code = Absolute Immature Granulocyte (auto) 0.13 0-0.1 H [facility]ieBlood Ajwtksz6597-73-12 21:19:00* Test Item Value Reference Range Interpretation Comments Blood Culture (test code = 90379489) NO GROWTH AFTER 5 DAYS, FINAL REPORT [facility]achiePrealbumin2020-02-26 12:09:00* Test Item Value Reference Range Interpretation Comments Prealbumin (test code = 83734-5) 15 14-35 Performed at: - [address] [id number] Director: Jonathan Gary MD, Phone: [phone] Scott & White Medical Center – WaxahachieVancomycin Level Ecuwhh4614-14-36 21:18:00* Test Item Value Reference Range Interpretation Comments Vancomycin Level Trough (test code = 4092-3) < 1.1 5.0-10.0 L [facility]ieVitamin B12 Vegeg5790-92-37 07:01:00* Test Item Value Reference Range Interpretation Comments Vitamin B12 Level (test code = 24258-8) 426 213-816 [facility]ieFerritin2020-02-25 06:52:00* Test Item Value Reference Range Interpretation Comments Ferritin (test code = 2276-4) 54.35 21.81-274.66 [facility]ieIron Ejaeh8235-37-22 06:41:00* Test Item Value Reference Range Interpretation Comments Iron Level (test code = 2498-4) 27 65-175 L [facility]ieTotal Iron Binding Ecmolhmd9368-48-64 06:41:00* Test Item Value Reference Range Interpretation Comments Total Iron Binding Capacity (test code = 2500-7) 311 261-4 78 [facility]iePercent Iron Pduypthkza1717-08-69 06:41:00* Test Item Value Reference Range Interpretation Comments Percent Iron Saturation (test code = 2502-3) 9 15-50 L [facility]ieTransferrin2020-02-25 06:41:00* Test Item Value Reference Range Interpretation Comments Transferrin (test code = 3034-6) 222 174-364 [facility]ieWound Dhymmdr0480-16-43 12:02:00* Test Item Value Reference Range Interpretation Comments Wound Culture (test code = 6462-6) No Result Data Provided [facility] Rikqwzp2891-50-21 11:36:00* Test Item Value Reference Range Interpretation Comments Wound Culture (test code = 6462-6) No Result Data Provided [facility] Bzlcigp8426-40-07 11:34:00* Test Item Value Reference Range Interpretation Comments Wound Culture (test code = 6462-6) No Result Data Provided [facility]ieC-Reactive Cpddvjk2628-31-26 22:40:00* Test Item Value Reference Range Interpretation Comments C-Reactive Protein (test code = 1988-5) 207 0-10 H Performed at: [facility] [address] [id number] Director: Jonathan Gary MD, Phone: [phone] Scott & White Medical Center – WaxahachieFolate2020-02-23 06:22:00* Test Item Value Reference Range Interpretation Comments Folate (test code = 2284-8) 8.5 7.0-15.4 [facility]achieThyroid Stimulating Hormone (TSH) 2019-11-12 06:00:00* Test Item Value Reference Range Interpretation Comments Thyroid Stimulating Hormone (TSH) (test code = 05401-2) 5.023 0.350-4.940 H [facility]achieHemoglobin A1c Oqcexfe6923-16-50 05:47:00 * Test Item Value Reference Range Interpretation Comments Hemoglobin A1c Percent (test code = Hemoglobin A1c Percent) 10.1 4.0-7.0 H [facility]achieCHEST XRAY LINE NDUDVFCTP0931-20-64 12:26:00 [place] [address] Patient Name: JADE LANGE II MR #: [id number] : 1980 Age/Sex: 39/M Req #: [id number] Adm Physician: JANAK QURESHI MD Ordered by: Gabino Muller [employer] Report #: [id number] Location: MED/SURG2 Room[facility]Bed: [facility] Procedure: [id number] DX/CHEST XRAY LINE PLACEMENT Exam Date: 11/11/19 E xam Time: 113 REPORT STATUS: Jimena d EXAMINATION: CHEST XRAY LINE PLACEMENT INDICATION: VERIF Y LINE PLACEMENT. [id number] COMPARISON: None FINDINGS: AP view TUBES and LINES: Right-sided PICC line. LUNGS/PLEURA: L ungs are well inflated. There is obscuration of the right costophrenic angle likely due to atelectasis and effusion. HEART AND MEDIASTINUM: The cardiom ediastinal silhouette is unremarkable. BONES AND SOFT TISSUES: No acut e osseous lesion. Soft tissues are unremarkable. UPPER ABDOMEN: No free air under the diaphragm. IMPRESSION: Obscuration of the right costop hrenic angle likely due to atelectasis and effusion. Signed by: Eliud Uriarte MD on 11/11/2019 12:27 PM Dictated By: CELIA URIARTE MD Transcribed By: WU on 11/11/197 COPY TO: GABINO MULLER NP Total Mwgkalzkp0239-03-91 06:31:00* Test Item Value Reference Range Interpretation Comments Total Bilirubin (test code = 1975-2) 0.1 0.2-1.2 L [facility]achieAspartate Amino Transf (AST/SGOT) 2019-11-11 06:31:00* Test Item Value Reference Range Interpretation Comments Aspartate Amino Transf (AST/SGOT) (test code = Aspartate Amino Transf (AST/SGOT)) 18 5-34 [facility]ieAlanine Aminotransferase (ALT/SGPT) 2019-11-11 06:31:00* Test Item Value Reference Range Interpretation Comments Alanine Aminotransferase (ALT/SGPT) (test code = 1742-6) 17 0-55 [facility]ieTotal Ictvaws0715-84-73 06:31:00* Test Item Value Reference Range Interpretation Comments Total Protein (test code = 2885-2) 6.8 6.5-8.1 [facility]achieAlbumin2020-02-22 06:31:00* Test Item Value Reference Range Interpretation Comments Albumin (test code = 1751-7) 1.7 3.5-5.0 L [facility]achieGlobulin2020-02-22 06:31:00* Test Item Value Reference Range Interpretation Comments Globulin (test code = 11882-6) 5.1 2.3-3.5 H [facility]ieAlbumin/Globulin Uhygu1028-28-00 06:31:00 * Test Item Value Reference Range Interpretation Comments Albumin/Globulin Ratio (test code = 1759-0) 0.3 0.8-2.0 L [facility]ieAlkaline Imvhejgfeca2192-91-46 06:31:00* Test Item Value Reference Range Interpretation Comments Alkaline Phosphatase (test code = 6768-6) 384 40-150 H [facility]achieLactic Acid Ytzxr9553-32-34 06:23:00* Test Item Value Reference Range Interpretation Comments Lactic Acid Level (test code = Lactic Acid Level) 1.9 0.5- 2.0 [facility]achieErythrocyte Sedimentation Hcgr1322-82-15 22:01:00* Test Item Value Reference Range Interpretation Comments Erythrocyte Sedimentation Rate (test code = 4537-7) 125 0- 13 [facility] GCHH4450-74-26 20:41:00 [facility] [address] [address] Patient Name: JADE LANGE II MR #: [id number] : 1980 Age/Sex: 39/M Req #: [id number] Adm Physician: Ordered by: LUIS FERNANDO KAPADIA MD Report #: [id number] Location: [facility] Room/Bed: Procedure: [id number] HOPD/HIP 2 VIEW BILATERAL- HOPD Exam Date: 11/10/19 Exam Time: 2019 REPORT STATUS: Sig serina PELVIS ONE IMAGE - BILATERAL HIP FOUR Images HISTORY: Pressure sore s, evaluate for osteomyelitis COMPARISON: CT pelvis performed at [facility] 02/08/2019 FINDINGS: Bones: Hips: Intact and normal ly positioned. Mild degenerative changes of the right hip. Pelvis: Intact . No diastases of the pubic symphysis or sacroiliac joints. Cortical thickenin g and heterotopic ossifications of the inferior pubic rami/ischial tuberositie s, right greater than left. There are erosive changes of the left issue tubero sity similar to previous exam. Cortical thickening of the lateral aspect of th e left greater trochanter. Lower lumbar spine: Unremarkable. Soft tiss ues: Heterotopic ossifications of the soft tissues of the greater trochanter o f the right femur and the lesser trochanter of the left femur. Extensive heter otopic ossifications in the soft tissues of the posterior left pelvis extendin g to the level of the iliac crest and throughout the proximal left thigh. Deep soft tissue ulceration of the lateral aspect of the left thigh/hip extending to the bone is larger. Soft tissue ulceration at the posterior aspect of the l eft proximal thigh is redemonstrated. IMPRESSION: Large decubitus u lcer of the lateral aspect of the left thigh/hip and decubitus ulcer of the pr oximal left thigh. Extensive heterotopic ossifications of the left pelvis, ischial tuberosities, and right greater trochanter suggestive of chronic osteo myelitis. Signed by: Dr. Abhi Guardado MD on 11/10/2019 8:54 PM Dictated By: ABHI GUARDADO MD 53 Transcribed By: WU on 11/10/192053 COPY TO: LUIS FERNANDO DIXON MD PELVIS 1-2 VIEW - YLNN3038-26-62 20:41:00 [place] [address] Patient Name: JADE LANGE II MR #: [id number] : 1980 Age/Sex: 39/M Req #: [id number] Adm Physician: Ordered by: LUIS FERNANDO KAPADIA MD Report #: [id number] Location: [facility] Room/Bed: Procedure: [id number] HOPD/PELVIS 1-2 VIEW - HOPD Exam Date: 11/10/19 Exa m Time: 2019 REPORT STATUS: Signed PELVIS ONE IMAGE - BILATERAL HIP FOUR Images HISTORY: Pressure sores, e valuate for osteomyelitis COMPARISON: CT pelvis performed at [facility] 02/08/2019 FINDINGS: Bones: Hips: Intact and normally p ositioned. Mild degenerative changes of the right hip. Pelvis: Intact. No diastases of the pubic symphysis or sacroiliac joints. Cortical thickening an d heterotopic ossifications of the inferior pubic rami/ischial tuberosities, r ight greater than left. There are erosive changes of the left issue tuberosity similar to previous exam. Cortical thickening of the lateral aspect of the le ft greater trochanter. Lower lumbar spine: Unremarkable. Soft tissues: Heterotopic ossifications of the soft tissues of the greater trochanter of th e right femur and the lesser trochanter of the left femur. Extensive heterotop ic ossifications in the soft tissues of the posterior left pelvis extending to the level of the iliac crest and throughout the proximal left thigh. Deep sof t tissue ulceration of the lateral aspect of the left thigh/hip extending to t he bone is larger. Soft tissue ulceration at the posterior aspect of the left proximal thigh is redemonstrated. IMPRESSION: Large decubitus ulcer of the lateral aspect of the left thigh/hip and decubitus ulcer of the proxim al left thigh. Extensive heterotopic ossifications of the left pelvis, isch ial tuberosities, and right greater trochanter suggestive of chronic osteomyel itis. Signed by: Dr. Abhi Guardado MD on 11/10/2019 8:54 PM Dict ated By: ABHI GUARDADO MD 53 Transcribed By: WU on 11/10/192053 COPY TO: LUIS FERNANDO BALLESTEROS MD POC Mqnszdl8676-24-64 11:24:41* Test Item Value Reference Range Interpretation Comments Glucose POC (test code = Glucose POC) 183 mg/dL 70-115 H If you consider your patient critically ill, the Nitish-Accu Check Infrom II meter should not be used for Glucose determination. Draw a venous Glucose and send to the main Lab for analysis. POC Tsgvdoo9959-71-60 07:12:47* Test Item Value Reference Range Interpretation Comments Glucose POC (test code = Glucose POC) 259 mg/dL 70-115 H If you consider your patient critically ill, the Nitish-Accu Check Infrom II meter should not be used for Glucose determination. Draw a venous Glucose and send to the main Lab for analysis. POC Qbogdqs2482-73-71 20:28:10* Test Item Value Reference Range Interpretation Comments Glucose POC (test code = Glucose POC) 227 mg/dL 70-115 H Notify RN or MDIf you consider your patient critically ill, the Nitish-Accu Check Infrom II meter should not be used for Glucose determination. Draw a venous Glucose and send to the main Lab for analysis. POC Wowthaa4140-45-10 16:21:11* Test Item Value Reference Range Interpretation Comments Glucose POC (test code = Glucose POC) 202 mg/dL 70-115 H If you consider your patient critically ill, the Nitish-Accu Check Infrom II meter should not be used for Glucose determination. Draw a venous Glucose and send to the main Lab for analysis. Vancomycin Level Vmnchg7947-27-78 13:25:28* Test Item Value Reference Range Interpretation Comments Vanco Tr (test code = Vanco Tr) 13.5 mcg/mL 10.0-20.0 POC Dnkthoe5171-97-79 12:13:43* Test Item Value Reference Range Interpretation Comments Glucose POC (test code = Glucose POC) 217 mg/dL 70-115 H If you consider your patient critically ill, the Nitish-Accu Check Infrom II meter should not be used for Glucose determination. Draw a venous Glucose and send to the main Lab for analysis. POC Kqoeitw5007-33-37 07:42:42* Test Item Value Reference Range Interpretation Comments Glucose POC (test code = Glucose POC) 183 mg/dL 70-115 H If you consider your patient critically ill, the Nitish-Accu Check Infrom II meter should not be used for Glucose determination. Draw a venous Glucose and send to the main Lab for analysis. POC Edbcolf5536-50-17 20:55:39* Test Item Value Reference Range Interpretation Comments Glucose POC (test code = Glucose POC) 158 mg/dL 70-115 H If you consider your patient critically ill, the Nitish-Accu Check Infrom II meter should not be used for Glucose determination. Draw a venous Glucose and send to the main Lab for analysis. POC Xnepcaw0143-99-99 16:22:41* Test Item Value Reference Range Interpretation Comments Glucose POC (test code = Glucose POC) 134 mg/dL 70-115 H Notify RN or MDIf you consider your patient critically ill, the Nitish-Accu Check Infrom II meter should not be used for Glucose determination. Draw a venous Glucose and send to the main Lab for analysis. POC Drhvjkv8659-40-20 11:01:35* Test Item Value Reference Range Interpretation Comments Glucose POC (test code = Glucose POC) 297 mg/dL 70-115 H Notify RN or MDIf you consider your patient critically ill, the Nitish-Accu Check Infrom II meter should not be used for Glucose determination. Draw a venous Glucose and send to the main Lab for analysis. ABORh Fvrujc2591-26-82 08:17:25* Test Item Value Reference Range Interpretation Comments Methodology (test code = Methodology) Test-Tube(TT) Anti-A (test code = Anti-A) 0 Anti-B (test code = Anti-B) 0 Anti-AB (test code = Anti-AB) NT Anti-D (test code = Anti-D) 4+ ABORh Retype (test code = ABORh Retype) O POS POC Aqqspnz3259-18-69 07:20:40* Test Item Value Reference Range Interpretation Comments Glucose POC (test code = Glucose POC) 185 mg/dL 70-115 H Notify RN or MDIf you consider your patient critically ill, the Nitish-Accu Check Infrom II meter should not be used for Glucose determination. Draw a venous Glucose and send to the main Lab for analysis. 3C ABSC Sfmd5432-13-51 06:21:17* Test Item Value Reference Range Interpretation Comments SC1 IS (test code = SC1 IS) NT SC2 IS (test code = SC2 IS) NT SC3 IS (test code = SC3 IS) NT SC1 37 (test code = SC1 37) 0 SC2 37 (test code = SC2 37) 0 SC3 37 (test code = SC3 37) 0 SC1 AHG (test code = SC1 AHG) 0 SC2 AHG (test code = SC2 AHG) 0 SC3 AHG (test code = SC3 AHG) 0 SC1 CC (test code = SC1 CC) 2+ SC2 CC (test code = SC2 CC) 2+ SC3 CC (test code = SC3 CC) 2+ Antibody Screen (3C) (test code = Antibody Screen (3C)) Negative AB SC [id number] 05:54:23* Test Item Value Reference Range Interpretation Comments Previous History (test code = Previous History) No Prev History BBID (test code = BBID) [id number] Methodology (test code = Methodology) Test-Tube(TT) Anti-A (test code = Anti-A) 0 Anti-B (test code = Anti-B) 0 Anti-D (test code = Anti-D) 4+ DCon (test code = DCon) NT A1 (test code = A1) 4+ B cells (test code = B cells) 4+ ABORh (test code = ABORh) O POS Automated Uzevzsmefhqh1965-28-28 05:41:48* Test Item Value Reference Range Interpretation Comments Neutro Auto (test code = Neutro Auto) 50.8 % 36.0-70.0 Lymph Auto (test code = Lymph Auto) 35.3 % 12.0-44.0 Borden Auto (test code = Borden Auto) 9.3 % 0.0-11.0 Eos, Auto (test code = Eos, Auto) 3.4 % 0.0-7.0 Basophil Auto (test code = Basophil Auto) 0.3 % 0.0-2.0 Neutro Absolute (test code = Neutro Absolute) 4.9 x10 1.6-7.4 Lymph Absolute (test code = Lymph Absolute) 3.41 x10 .50-4.60 Borden Absolute (test code = Borden Absolute) .90 x10 .00-1.20 Eos Absolute (test code = Eos Absolute) 0.33 x10 0.00-0.74 Baso Absolute (test code = Baso Absolute) 0.03 x10 0.00-0.21 IG Oukgk3788-08-61 05:41:48* Test Item Value Reference Range Interpretation Comments IG (test code = IG) 0.9 % 0.0-5.0 IG Abs (test code = IG Abs) 0 x10 N Complete Blood Count with Jqkcjwmyypwx2085-55-68 05:41:47* Test Item Value Reference Range Interpretation Comments WBC (test code = WBC) 9.6 x10 4.4-10.5 RBC (test code = RBC) 3.62 x10 4.10-5.70 L Hgb (test code = Hgb) 8.5 g/dL 13.4-17.4 L Hct (test code = Hct) 28.9 % 38.7-52.0 L MCV (test code = MCV) 79.80 fL 80.00-100.00 L MCHC (test code = MCHC) 29.40 g/dL 32.00-37.50 L RDW CV (test code = RDW CV) 16.0 % 11.5-14.5 H MCH (test code = MCH) 23.5 pg 27.0-32.5 L Platelets (test code = Platelets) 634.0 x10 140.0-440.0 H MPV (test code = MPV) 8.3 fL N Slide Review (test code = Slide Review) Auto Auto Result created by GL_SJM_SLIDE_REV_AUTO [email or web address]_RFLX nRBC (test code = nRBC) 0 N NRBC Abs (test code = NRBC Abs) 0.00 x10 N Pos Morph XN (test code = Pos Morph XN) A N IPF (test code = IPF) 0 % N Basic Metabolic [id number] 05:25:44* Test Item Value Reference Range Interpretation Comments Sodium Level (test code = Sodium Level) 136.0 mmol/L 135.0-145.0 Potassium Level (test code = Potassium Level) 4.4 mmol/L 3.5-5.1 Chloride Level (test code = Chloride Level) 95 mmol/L 98-105 L CO2 (test code = CO2) 30 mmol/L 22-29 H Anion Gap (test code = Anion Gap) 11 mmol/L 7-16 BUN (test code = BUN) 14.50 mg/dL 6.00-20.00 Creatinine Level (test code = Creatinine Level) 0.60 mg/dL 0.70-1 .20 L BUN/Creat Ratio (test code = BUN/Creat Ratio) 24 N Glucose Level (test code = Glucose Level) 179 mg/dL 70-115 H Calcium Level (test code = Calcium Level) 8.9 mg/dL 8.3-10.5 Basic Metabolic [id number] 05:25:44* Test Item Value Reference Range Interpretation Comments Sodium Level (test code = Sodium Level) 136.0 mmol/L 135.0-145.0 Potassium Level (test code = Potassium Level) 4.4 mmol/L 3.5-5.1 Chloride Level (test code = Chloride Level) 95 mmol/L 98-105 L CO2 (test code = CO2) 30 mmol/L 22-29 H Anion Gap (test code = Anion Gap) 11 mmol/L 7-16 BUN (test code = BUN) 14.50 mg/dL 6.00-20.00 Creatinine Level (test code = Creatinine Level) 0.60 mg/dL 0.70-1 .20 L BUN/Creat Ratio (test code = BUN/Creat Ratio) 24 N Glucose Level (test code = Glucose Level) 179 mg/dL 70-115 H Calcium Level (test code = Calcium Level) 8.9 mg/dL 8.3-10.5 eGFR AA (test code = eGFR AA) >60 mL/min/1.73 m2 N eGFR (estimated Glomerular Filtration Rate) is an estimated value, calculated from the patient's serum creatinine using the MDRD equation. It is NOT the patient's actual GFR. The eGFR provides a more clinically useful measure of kidney disease than serum creatinine alone.This calculation takes sex and race into account, if the information is provided. If the race is not provided, and the patient is -[place], multiply by 1.212. If sex is not provided, and the patient is female, multiply by 0.742. Results for patients <18 years of age have not been validated by the MDRD study and should be interpreted with caution. eGFR Result Interpretation:eGFR > or = 60 is in the Normal RangeeGFR < 60 may mean kidney diseaseeGFR < 15 may mean kidney failure Ranges recommended by the National Kidney Foundation, http://nkdep.nih.gov Basic Metabolic Dukdc5780-69-16 05:25:44* Test Item Value Reference Range Interpretation Comments Sodium Level (test code = Sodium Level) 136.0 mmol/L 135.0-145.0 Potassium Level (test code = Potassium Level) 4.4 mmol/L 3.5-5.1 Chloride Level (test code = Chloride Level) 95 mmol/L 98-105 L CO2 (test code = CO2) 30 mmol/L 22-29 H Anion Gap (test code = Anion Gap) 11 mmol/L 7-16 BUN (test code = BUN) 14.50 mg/dL 6.00-20.00 Creatinine Level (test code = Creatinine Level) 0.60 mg/dL 0.70-1 .20 L BUN/Creat Ratio (test code = BUN/Creat Ratio) 24 N Glucose Level (test code = Glucose Level) 179 mg/dL 70-115 H Calcium Level (test code = Calcium Level) 8.9 mg/dL 8.3-10.5 eGFR AA (test code = eGFR AA) >60 mL/min/1.73 m2 N eGFR (estimated Glomerular Filtration Rate) is an estimated value, calculated from the patient's serum creatinine using the MDRD equation. It is NOT the patient's actual GFR. The eGFR provides a more clinically useful measure of kidney disease than serum creatinine alone.This calculation takes sex and race into account, if the information is provided. If the race is not provided, and the patient is -[place], multiply by 1.212. If sex is not provided, and the patient is female, multiply by 0.742. Results for patients <18 years of age have not been validated by the MDRD study and should be interpreted with caution. eGFR Result Interpretation:eGFR > or = 60 is in the Normal RangeeGFR < 60 may mean kidney diseaseeGFR < 15 may mean kidney failure Ranges recommended by the National Kidney Foundation, http://nkdep.nih.gov eGFR Non-AA (test code = eGFR Non-AA) >60.00 mL/min/1.73 m2 N eGFR (estimated Glomerular Filtration Rate) is an estimated value, calculated from the patient's serum creatinine using the MDRD equation. It is NOT the patient's actual GFR. The eGFR provides a more clinically useful measure of kidney disease than serum creatinine alone.This calculation takes sex and race into account, if the information is provided. If the race is not provided, and the patient is -[place], multiply by 1.212. If sex is not provided, and the patient is female, multiply by 0.742. Results for patients <18 years of age have not been validated by the MDRD study and should be interpreted with caution. eGFR Result Interpretation:eGFR > or = 60 is in the Normal RangeeGFR < 60 may mean kidney diseaseeGFR < 15 may mean kidney failure Ranges recommended by the National Kidney Foundation, http://nkdep.nih.gov POC [id number] 20:32:07* Test Item Value Reference Range Interpretation Comments Glucose POC (test code = Glucose POC) 155 mg/dL 70-115 H If you consider your patient critically ill, the Nitish-Accu Check Infrom II meter should not be used for Glucose determination. Draw a venous Glucose and send to the main Lab for analysis. POC [id number] 16:56:40* Test Item Value Reference Range Interpretation Comments Glucose POC (test code = Glucose POC) 161 mg/dL 70-115 H If you consider your patient critically ill, the Nitish-Accu Check Infrom II meter should not be used for Glucose determination. Draw a venous Glucose and send to the main Lab for analysis. POC [id number] 11:55:05* Test Item Value Reference Range Interpretation Comments Glucose POC (test code = Glucose POC) 291 mg/dL 70-115 H If you consider your patient critically ill, the Nitish-Accu Check Infrom II meter should not be used for Glucose determination. Draw a venous Glucose and send to the main Lab for analysis. POC [id number] 07:58:10* Test Item Value Reference Range Interpretation Comments Glucose POC (test code = Glucose POC) 227 mg/dL 70-115 H If you consider your patient critically ill, the Nitish-Accu Check Infrom II meter should not be used for Glucose determination. Draw a venous Glucose and send to the main Lab for analysis. Vancomycin Level [id number] 21:57:56* Test Item Value Reference Range Interpretation Comments Vanco Tr (test code = Vanco Tr) 11.6 mcg/mL 10.0-20.0 POC [id number] 20:04:38* Test Item Value Reference Range Interpretation Comments Glucose POC (test code = Glucose POC) 123 mg/dL 70-115 H If you consider your patient critically ill, the Nitish-Accu Check Infrom II meter should not be used for Glucose determination. Draw a venous Glucose and send to the main Lab for analysis. POC [id number] 16:27:10* Test Item Value Reference Range Interpretation Comments Glucose POC (test code = Glucose POC) 164 mg/dL 70-115 H If you consider your patient critically ill, the Nitish-Accu Check Infrom II meter should not be used for Glucose determination. Draw a venous Glucose and send to the main Lab for analysis. POC [id number] 11:56:10* Test Item Value Reference Range Interpretation Comments Glucose POC (test code = Glucose POC) 161 mg/dL 70-115 H If you consider your patient critically ill, the Nitish-Accu Check Infrom II meter should not be used for Glucose determination. Draw a venous Glucose and send to the main Lab for analysis. Blood [id number] 09:01:35No growth at 5 days.POC [id number] 07:39:33* Test Item Value Reference Range Interpretation Comments Glucose POC (test code = Glucose POC) 195 mg/dL 70-115 H If you consider your patient critically ill, the Nitish-Accu Check Infrom II meter should not be used for Glucose determination. Draw a venous Glucose and send to the main Lab for analysis. Basic Metabolic [id number] 06:17:36* Test Item Value Reference Range Interpretation Comments Sodium Level (test code = Sodium Level) 138.0 mmol/L 135.0-145.0 Potassium Level (test code = Potassium Level) 4.0 mmol/L 3.5-5.1 Chloride Level (test code = Chloride Level) 100 mmol/L 98-105 CO2 (test code = CO2) 27 mmol/L 22-29 Anion Gap (test code = Anion Gap) 11 mmol/L 7-16 BUN (test code = BUN) 9.00 mg/dL 6.00-20.00 Creatinine Level (test code = Creatinine Level) 0.60 mg/dL 0.70-1 .20 L BUN/Creat Ratio (test code = BUN/Creat Ratio) 15 N Glucose Level (test code = Glucose Level) 189 mg/dL 70-115 H Calcium Level (test code = Calcium Level) 8.5 mg/dL 8.3-10.5 Basic Metabolic [id number] 06:17:36* Test Item Value Reference Range Interpretation Comments Sodium Level (test code = Sodium Level) 138.0 mmol/L 135.0-145.0 Potassium Level (test code = Potassium Level) 4.0 mmol/L 3.5-5.1 Chloride Level (test code = Chloride Level) 100 mmol/L 98-105 CO2 (test code = CO2) 27 mmol/L 22-29 Anion Gap (test code = Anion Gap) 11 mmol/L 7-16 BUN (test code = BUN) 9.00 mg/dL 6.00-20.00 Creatinine Level (test code = Creatinine Level) 0.60 mg/dL 0.70-1 .20 L BUN/Creat Ratio (test code = BUN/Creat Ratio) 15 N Glucose Level (test code = Glucose Level) 189 mg/dL 70-115 H Calcium Level (test code = Calcium Level) 8.5 mg/dL 8.3-10.5 eGFR AA (test code = eGFR AA) >60 mL/min/1.73 m2 N eGFR (estimated Glomerular Filtration Rate) is an estimated value, calculated from the patient's serum creatinine using the MDRD equation. It is NOT the patient's actual GFR. The eGFR provides a more clinically useful measure of kidney disease than serum creatinine alone.This calculation takes sex and race into account, if the information is provided. If the race is not provided, and the patient is -[place], multiply by 1.212. If sex is not provided, and the patient is female, multiply by 0.742. Results for patients <18 years of age have not been validated by the MDRD study and should be interpreted with caution. eGFR Result Interpretation:eGFR > or = 60 is in the Normal RangeeGFR < 60 may mean kidney diseaseeGFR < 15 may mean kidney failure Ranges recommended by the National Kidney Foundation, http://nkdep.nih.gov Basic Metabolic [id number] 06:17:36* Test Item Value Reference Range Interpretation Comments Sodium Level (test code = Sodium Level) 138.0 mmol/L 135.0-145.0 Potassium Level (test code = Potassium Level) 4.0 mmol/L 3.5-5.1 Chloride Level (test code = Chloride Level) 100 mmol/L 98-105 CO2 (test code = CO2) 27 mmol/L 22-29 Anion Gap (test code = Anion Gap) 11 mmol/L 7-16 BUN (test code = BUN) 9.00 mg/dL 6.00-20.00 Creatinine Level (test code = Creatinine Level) 0.60 mg/dL 0.70-1 .20 L BUN/Creat Ratio (test code = BUN/Creat Ratio) 15 N Glucose Level (test code = Glucose Level) 189 mg/dL 70-115 H Calcium Level (test code = Calcium Level) 8.5 mg/dL 8.3-10.5 eGFR AA (test code = eGFR AA) >60 mL/min/1.73 m2 N eGFR (estimated Glomerular Filtration Rate) is an estimated value, calculated from the patient's serum creatinine using the MDRD equation. It is NOT the patient's actual GFR. The eGFR provides a more clinically useful measure of kidney disease than serum creatinine alone.This calculation takes sex and race into account, if the information is provided. If the race is not provided, and the patient is -[place], multiply by 1.212. If sex is not provided, and the patient is female, multiply by 0.742. Results for patients <18 years of age have not been validated by the MDRD study and should be interpreted with caution. eGFR Result Interpretation:eGFR > or = 60 is in the Normal RangeeGFR < 60 may mean kidney diseaseeGFR < 15 may mean kidney failure Ranges recommended by the National Kidney Foundation, http://nkdep.nih.gov eGFR Non-AA (test code = eGFR Non-AA) >60.00 mL/min/1.73 m2 N eGFR (estimated Glomerular Filtration Rate) is an estimated value, calculated from the patient's serum creatinine using the MDRD equation. It is NOT the patient's actual GFR. The eGFR provides a more clinically useful measure of kidney disease than serum creatinine alone.This calculation takes sex and race into account, if the information is provided. If the race is not provided, and the patient is -[place], multiply by 1.212. If sex is not provided, and the patient is female, multiply by 0.742. Results for patients <18 years of age have not been validated by the MDRD study and should be interpreted with caution. eGFR Result Interpretation:eGFR > or = 60 is in the Normal RangeeGFR < 60 may mean kidney diseaseeGFR < 15 may mean kidney failure Ranges recommended by the National Kidney Foundation, http://nkdep.nih.gov Complete Blood Count with [id number] 05:15:48* Test Item Value Reference Range Interpretation Comments WBC (test code = WBC) 10.2 x10 4.4-10.5 RBC (test code = RBC) 3.15 x10 4.10-5.70 L Hgb (test code = Hgb) 7.5 g/dL 13.4-17.4 L Hct (test code = Hct) 25.8 % 38.7-52.0 L MCV (test code = MCV) 81.90 fL 80.00-100.00 MCHC (test code = MCHC) 29.10 g/dL 32.00-37.50 L RDW CV (test code = RDW CV) 16.4 % 11.5-14.5 H MCH (test code = MCH) 23.8 pg 27.0-32.5 L Platelets (test code = Platelets) 595.0 x10 140.0-440.0 H MPV (test code = MPV) 8.7 fL N Slide Review (test code = Slide Review) Auto Auto Result created by [email or web address]_SLIDE_REV_AUTO [email or web address]_RFLX nRBC (test code = nRBC) 0 N NRBC Abs (test code = NRBC Abs) 0.00 x10 N Pos Morph XN (test code = Pos Morph XN) A N IPF (test code = IPF) 0 % N Automated [id number] 05:15:48* Test Item Value Reference Range Interpretation Comments Neutro Auto (test code = Neutro Auto) 46.3 % 36.0-70.0 Lymph Auto (test code = Lymph Auto) 41.3 % 12.0-44.0 Borden Auto (test code = Borden Auto) 8.3 % 0.0-11.0 Eos, Auto (test code = Eos, Auto) 3.2 % 0.0-7.0 Basophil Auto (test code = Basophil Auto) 0.3 % 0.0-2.0 Neutro Absolute (test code = Neutro Absolute) 4.7 x10 1.6-7.4 Lymph Absolute (test code = Lymph Absolute) 4.21 x10 .50-4.60 Borden Absolute (test code = Borden Absolute) .85 x10 .00-1.20 Eos Absolute (test code = Eos Absolute) 0.33 x10 0.00-0.74 Baso Absolute (test code = Baso Absolute) 0.03 x10 0.00-0.21 IG [id number] 05:15:48* Test Item Value Reference Range Interpretation Comments IG (test code = IG) 0.6 % 0.0-5.0 IG Abs (test code = IG Abs) 0 x10 N Vancomycin Level [id number] 23:32:37* Test Item Value Reference Range Interpretation Comments Vanco Tr (test code = Vanco Tr) 2.8 mcg/mL 10.0-20.0 L POC [id number] 20:57:44* Test Item Value Reference Range Interpretation Comments Glucose POC (test code = Glucose POC) 309 mg/dL 70-115 H If you consider your patient critically ill, the Nitish-Accu Check Infrom II meter should not be used for Glucose determination. Draw a venous Glucose and send to the main Lab for analysis. POC [id number] 16:21:03* Test Item Value Reference Range Interpretation Comments Glucose POC (test code = Glucose POC) 199 mg/dL 70-115 H Notify RN or MDIf you consider your patient critically ill, the Nitish-Accu Check Infrom II meter should not be used for Glucose determination. Draw a venous Glucose and send to the main Lab for analysis. POC [id number] 11:51:37* Test Item Value Reference Range Interpretation Comments Glucose POC (test code = Glucose POC) 234 mg/dL 70-115 H Notify RN or MDIf you consider your patient critically ill, the Nitish-Accu Check Infrom II meter should not be used for Glucose determination. Draw a venous Glucose and send to the main Lab for analysis. Urine [id number] 10:38:47 C Urine Added by GL_SJM_UA_CUL_IND>=100,000 cfu/ml YeastPOC [id number] 07:40:34* Test Item Value Reference Range Interpretation Comments Glucose POC (test code = Glucose POC) 228 mg/dL 70-115 H Notify RN or MDIf you consider your patient critically ill, the Nitish-Accu Check Infrom II meter should not be used for Glucose determination. Draw a venous Glucose and send to the main Lab for analysis. POC [id number] 19:55:40* Test Item Value Reference Range Interpretation Comments Glucose POC (test code = Glucose POC) 217 mg/dL 70-115 H If you consider your patient critically ill, the Nitish-Accu Check Infrom II meter should not be used for Glucose determination. Draw a venous Glucose and send to the main Lab for analysis. POC [id number] 16:06:29* Test Item Value Reference Range Interpretation Comments Glucose POC (test code = Glucose POC) 228 mg/dL 70-115 H Notify RN or MDIf you consider your patient critically ill, the Nitish-Accu Check Infrom II meter should not be used for Glucose determination. Draw a venous Glucose and send to the main Lab for analysis. POC [id number] 11:15:06* Test Item Value Reference Range Interpretation Comments Glucose POC (test code = Glucose POC) 251 mg/dL 70-115 H Notify RN or MDIf you consider your patient critically ill, the Nitish-Accu Check Infrom II meter should not be used for Glucose determination. Draw a venous Glucose and send to the main Lab for analysis. Urinalysis [id number] 06:51:37* Test Item Value Reference Range Interpretation Comments UA WBC (test code = UA WBC) 20-29 0-5 A UA RBC (test code = UA RBC) 6-10 0-5 A UA Bacteria (test code = UA Bacteria) Few A UA Squam Epithelial (test code = UA Squam Epithelial) 11-19 A UA Yeast (test code = UA Yeast) Many A UA Ca Ox Crystal (test code = UA Ca Ox Crystal) Few A Basic Metabolic [id number] 06:42:47* Test Item Value Reference Range Interpretation Comments Sodium Level (test code = Sodium Level) 144.0 mmol/L 135.0-145.0 Potassium Level (test code = Potassium Level) 3.8 mmol/L 3.5-5.1 Chloride Level (test code = Chloride Level) 106 mmol/L 98-105 H CO2 (test code = CO2) 27 mmol/L 22-29 Anion Gap (test code = Anion Gap) 11 mmol/L 7-16 BUN (test code = BUN) 8.10 mg/dL 6.00-20.00 Creatinine Level (test code = Creatinine Level) 0.80 mg/dL 0.70-1 .20 BUN/Creat Ratio (test code = BUN/Creat Ratio) 10 N Glucose Level (test code = Glucose Level) 315 mg/dL 70-115 H Calcium Level (test code = Calcium Level) 8.6 mg/dL 8.3-10.5 Basic Metabolic [id number] 06:42:47* Test Item Value Reference Range Interpretation Comments Sodium Level (test code = Sodium Level) 144.0 mmol/L 135.0-145.0 Potassium Level (test code = Potassium Level) 3.8 mmol/L 3.5-5.1 Chloride Level (test code = Chloride Level) 106 mmol/L 98-105 H CO2 (test code = CO2) 27 mmol/L 22-29 Anion Gap (test code = Anion Gap) 11 mmol/L 7-16 BUN (test code = BUN) 8.10 mg/dL 6.00-20.00 Creatinine Level (test code = Creatinine Level) 0.80 mg/dL 0.70-1 .20 BUN/Creat Ratio (test code = BUN/Creat Ratio) 10 N Glucose Level (test code = Glucose Level) 315 mg/dL 70-115 H Calcium Level (test code = Calcium Level) 8.6 mg/dL 8.3-10.5 eGFR AA (test code = eGFR AA) >60 mL/min/1.73 m2 N eGFR (estimated Glomerular Filtration Rate) is an estimated value, calculated from the patient's serum creatinine using the MDRD equation. It is NOT the patient's actual GFR. The eGFR provides a more clinically useful measure of kidney disease than serum creatinine alone.This calculation takes sex and race into account, if the information is provided. If the race is not provided, and the patient is -[place], multiply by 1.212. If sex is not provided, and the patient is female, multiply by 0.742. Results for patients <18 years of age have not been validated by the MDRD study and should be interpreted with caution. eGFR Result Interpretation:eGFR > or = 60 is in the Normal RangeeGFR < 60 may mean kidney diseaseeGFR < 15 may mean kidney failure Ranges recommended by the National Kidney Foundation, http://nkdep.nih.gov Basic Metabolic [id number] 06:42:47* Test Item Value Reference Range Interpretation Comments Sodium Level (test code = Sodium Level) 144.0 mmol/L 135.0-145.0 Potassium Level (test code = Potassium Level) 3.8 mmol/L 3.5-5.1 Chloride Level (test code = Chloride Level) 106 mmol/L 98-105 H CO2 (test code = CO2) 27 mmol/L 22-29 Anion Gap (test code = Anion Gap) 11 mmol/L 7-16 BUN (test code = BUN) 8.10 mg/dL 6.00-20.00 Creatinine Level (test code = Creatinine Level) 0.80 mg/dL 0.70-1 .20 BUN/Creat Ratio (test code = BUN/Creat Ratio) 10 N Glucose Level (test code = Glucose Level) 315 mg/dL 70-115 H Calcium Level (test code = Calcium Level) 8.6 mg/dL 8.3-10.5 eGFR AA (test code = eGFR AA) >60 mL/min/1.73 m2 N eGFR (estimated Glomerular Filtration Rate) is an estimated value, calculated from the patient's serum creatinine using the MDRD equation. It is NOT the patient's actual GFR. The eGFR provides a more clinically useful measure of kidney disease than serum creatinine alone.This calculation takes sex and race into account, if the information is provided. If the race is not provided, and the patient is -[place], multiply by 1.212. If sex is not provided, and the patient is female, multiply by 0.742. Results for patients <18 years of age have not been validated by the MDRD study and should be interpreted with caution. eGFR Result Interpretation:eGFR > or = 60 is in the Normal RangeeGFR < 60 may mean kidney diseaseeGFR < 15 may mean kidney failure Ranges recommended by the National Kidney Foundation, http://nkdep.nih.gov eGFR Non-AA (test code = eGFR Non-AA) >60.00 mL/min/1.73 m2 N eGFR (estimated Glomerular Filtration Rate) is an estimated value, calculated from the patient's serum creatinine using the MDRD equation. It is NOT the patient's actual GFR. The eGFR provides a more clinically useful measure of kidney disease than serum creatinine alone.This calculation takes sex and race into account, if the information is provided. If the race is not provided, and the patient is -[place], multiply by 1.212. If sex is not provided, and the patient is female, multiply by 0.742. Results for patients <18 years of age have not been validated by the MDRD study and should be interpreted with caution. eGFR Result Interpretation:eGFR > or = 60 is in the Normal RangeeGFR < 60 may mean kidney diseaseeGFR < 15 may mean kidney failure Ranges recommended by the National Kidney Foundation, http://nkdep.nih.gov Urinalysis with Culture, if [id number] 06:35:06* Test Item Value Reference Range Interpretation Comments UA Color (test code = UA Color) YELLO Yellow UA Appear (test code = UA Appear) CLDY Clear A UA pH (test code = UA pH) 6 N UA Spec Grav (test code = UA Spec Grav) 1.023 1.001-1.035 UA Glucose (test code = UA Glucose) 300 mg/dL Negative A UA Bili (test code = UA Bili) NEG Negative UA Ketones (test code = UA Ketones) 5 mg/dL Negative UA Blood (test code = UA Blood) 50 cells/mcL Negative A UA Protein (test code = UA Protein) 75 mg/dL Negative A UA Urobilinogen (test code = UA Urobilinogen) 4 mg/dL >0.2 A UA Nitrite (test code = UA Nitrite) NEG Negative UA Leuk Est (test code = UA Leuk Est) 500 cells/mcL Negative A UA Micro Ind? (test code = UA Micro Ind?) Indicated Not Indicate d A Result created by rule [email or web address]_MICRO_IND Complete Blood Count without [id number] 06:23:13* Test Item Value Reference Range Interpretation Comments WBC (test code = WBC) 11.5 x10 4.4-10.5 H RBC (test code = RBC) 3.46 x10 4.10-5.70 L Hgb (test code = Hgb) 8.3 g/dL 13.4-17.4 L Hct (test code = Hct) 28.7 % 38.7-52.0 L MCV (test code = MCV) 82.90 fL 80.00-100.00 MCH (test code = MCH) 24.0 pg 27.0-32.5 L MCHC (test code = MCHC) 28.90 g/dL 32.00-37.50 L RDW CV (test code = RDW CV) 16.9 % 11.5-14.5 H Platelets (test code = Platelets) 712.0 x10 140.0-440.0 H MPV (test code = MPV) 8.3 fL N nRBC (test code = nRBC) 0 N NRBC Abs (test code = NRBC Abs) 0.00 x10 N IPF (test code = IPF) 0 % N POC [id number] 20:26:35* Test Item Value Reference Range Interpretation Comments Glucose POC (test code = Glucose POC) 217 mg/dL 70-115 H If you consider your patient critically ill, the Nitish-Accu Check Infrom II meter should not be used for Glucose determination. Draw a venous Glucose and send to the main Lab for analysis. XR Chest 1 View CVAD Insertion [id number] 19:34:01Patient: JADE ALNGE Date/Time05/17/2019 19:29 CDTReason for ExampiccReportChest one view AP 05/17/2019 7:33 PMCLINICAL INDICATION: PICC placementCOMPARISON: 05/17/2019 at [id number]: [id number]:Tip of a left PICC now projects over the cavoatrial junction. There is a trace right pleural effusion. The lungs are otherwise well aerated. Cardiomediastinal contours are within normal limits. The central pulmonary vascu lature is not engorged. Final Dictated by: MD Webb Timothy JDic tated DT/TM: 05/17/2019 7:33 pmSigned by: MD Webb Timothy JSigned (Electron ic Signature): 05/17/2019 7:34 pmXR Chest 1 View [id number] 19:22:55 Patient: JADE LANGE am Date/Time05/17/2019 19:02 CDTReason for ExamLine placementReportChest one view AP 05/17/2019 7:22 PMCLINICAL INDICATION: Line placementCOMPARISON: None availab leLOCATION: [id number]:The tip of a left PICC projects over the right atrium and could be retracted 4 to 5 cm. The lungs are well aerated. Cardiomediastinal contours are within normal limits. The central pulmonary vasculature is not engo rged. Final Dictated by: MD Webb Timothy JDictated DT/TM: 05/17 7:22 pmSigned by: MD Webb Timothy JSigned (Electronic Signature): 7:22 pmBlood [id number] 18:03:00* Test Item Value Reference Range Interpretation Comments ORGANISM (test code = ORGANISM) Methicillin-Resistant Staphylococcu s aureus Chloramphenicol (test code = Chlor) S Ciprofloxacin (test code = Cipro) R Clindamycin (test code = Clinda) S Erythromycin (test code = Eryth) R Gentamicin (test code = Gent) R Levofloxacin (test code = Levo) I Linezolid (test code = Linez) S Oxacillin (test code = Ox) R Rifampin (test code = Rif) S Tetracycline (test code = Tetra) S Trimethoprim/Sulfa (test code = SXT) S Vancomycin (test code = Vanc) S Final Report (test code = Final Report) Methicillin-Re sistant Staphylococcus aureus Contact isolation recommended Results called to and read back by: Rao Cruz RN 05/20/19 10:23:39/PXS Anaerobic Gram Stain Report (test code = Anaerobic Gra m Stain Report) Evidence of growth Gram Positive Cocci in Clusters Results called to and read back by: Luisito Love 05/18/19 10:31:45 YA Blood [id number] 18:03:00No growth at 5 days.POC [id number] 15:54:30* Test Item Value Reference Range Interpretation Comments pH Art (test code = pH Art) 7.45 7.35-7.45 pH Temp Inna Art (test code = pH Temp Inna Art) 7.45 N pCO2 Art (test code = pCO2 Art) 40 mmHg 35-45 pCO2 Temp Inna Art (test code = pCO2 Temp Inna Art) 40 mmHg N pO2 Art (test code = pO2 Art) 78 mmHg 80-100 L pO2 Temp Inna Art (test code = pO2 Temp Inna Art) 78 mmHg N ctHb Art (test code = ctHb Art) 8.7 g/dL 12.2-17.4 L O2 Sat Art (test code = O2 Sat Art) 96.5 % 80.0-100.0 FO2Hb Art (test code = FO2Hb Art) 94.0 % 0.0-100.0 FCOHb Art (test code = FCOHb Art) 2.5 % 0.0-20.0 FMetHb Art (test code = FMetHb Art) 0.1 % 0.0-20.0 HCO3 Art (test code = HCO3 Art) 27.6 mmol/L 22.0-26.0 L Hct Art (test code = Hct Art) 27 % 34-52 L Na Art (test code = Na Art) 143 mmol/L 135-145 K Art (test code = K Art) 3.4 mmol/L 3.5-4.5 L iCa Art (test code = iCa Art) 1.18 mmol/L 1.00-1.50 Cl Art (test code = Cl Art) 106 mmol/L 95-105 H Glu Art (test code = Glu Art) 294 mg/dL 75-115 H Base Excess Arterial (test code = Base Excess Arterial) 3.4 N FiO2 Art (test code = FiO2 Art) 21 % N Lactate Art (test code = Lactate Art) 0.8 mmol/L 0.5-2.2 Draw Site (test code = Draw Site) Radial. L N POC [id number] 15:41:58* Test Item Value Reference Range Interpretation Comments Glucose POC (test code = Glucose POC) 287 mg/dL 70-115 H If you consider your patient critically ill, the Nitish-Accu Check Infrom II meter should not be used for Glucose determination. Draw a venous Glucose and send to the main Lab for analysis. Lactic Acid, Plasma (Venous)2019-05-17 15:37:44* Test Item Value Reference Range Interpretation Comments Lactic Acid, Plasma (Venous) (test code = Lactic Acid, Plasma (Venous)) 1.0 mmol/L 0.5-1.9 Urine Drug [id number] 22:56:06* Test Item Value Reference Range Interpretation Comments Amphetamine Screen Ur (test code = Amphetamine Screen Ur) Negative Negative Barbiturate Screen Ur (test code = Barbiturate Screen Ur) Negative Negative Benzodiazepines Ur (test code = Benzodiazepines Ur) Negative Ne gative Cocaine Screen Ur (test code = Cocaine Screen Ur) POSITIVE Nega tive A U Methadone Scr (test code = U Methadone Scr) Negative Negative Opiate Screen Ur (test code = Opiate Screen Ur) Negative Negati ve U PCP Scrn (test code = U PCP Scrn) Negative Negative Cannabinoid Screen Ur (test code = Cannabinoid Screen Ur) POSITIVE Negative A U TCA (test code = U TCA) POSITIVE Negative A Th e results of all drug screen tests are only preliminary. Clinical consideration and professional judgment should be applied to any drug of abuse test result, particularly when preliminary positive results are obtained. Please order a separate confirmatory test if desired. Comprehensive Metabolic [id number] 21:46:03* Test Item Value Reference Range Interpretation Comments Sodium Level (test code = Sodium Level) 135.0 mmol/L 135.0-145.0 Potassium Level (test code = Potassium Level) 3.7 mmol/L 3.5-5.1 Chloride Level (test code = Chloride Level) 96 mmol/L 98-105 L CO2 (test code = CO2) 20 mmol/L 22-29 L Anion Gap (test code = Anion Gap) 19 mmol/L 7-16 H BUN (test code = BUN) 13.00 mg/dL 6.00-20.00 Creatinine Level (test code = Creatinine Level) 0.80 mg/dL 0.70-1 .20 BUN/Creat Ratio (test code = BUN/Creat Ratio) 16 N Glucose Level (test code = Glucose Level) 252 mg/dL 70-115 H Calcium Level (test code = Calcium Level) 9.4 mg/dL 8.3-10.5 Alk Phos (test code = Alk Phos) 215 U/L 40-129 H Bilirubin Total (test code = Bilirubin Total) 0.4 mg/dL 0.1-0.9 Albumin Level (test code = Albumin Level) 3.5 g/dL 3.5-5.2 Protein Total (test code = Protein Total) 8.2 g/dL 6.4-8.3 ALT (test code = ALT) 15 U/L 1-41 AST (test code = AST) 21 U/L 1-40 Globulin (test code = Globulin) 4.7 g/dL 2.9-3.1 H A/G Ratio (test code = A/G Ratio) 0.7 ratio N Comprehensive Metabolic [id number] 21:46:03* Test Item Value Reference Range Interpretation Comments Sodium Level (test code = Sodium Level) 135.0 mmol/L 135.0-145.0 Potassium Level (test code = Potassium Level) 3.7 mmol/L 3.5-5.1 Chloride Level (test code = Chloride Level) 96 mmol/L 98-105 L CO2 (test code = CO2) 20 mmol/L 22-29 L Anion Gap (test code = Anion Gap) 19 mmol/L 7-16 H BUN (test code = BUN) 13.00 mg/dL 6.00-20.00 Creatinine Level (test code = Creatinine Level) 0.80 mg/dL 0.70-1 .20 BUN/Creat Ratio (test code = BUN/Creat Ratio) 16 N Glucose Level (test code = Glucose Level) 252 mg/dL 70-115 H Calcium Level (test code = Calcium Level) 9.4 mg/dL 8.3-10.5 Alk Phos (test code = Alk Phos) 215 U/L 40-129 H Bilirubin Total (test code = Bilirubin Total) 0.4 mg/dL 0.1-0.9 Albumin Level (test code = Albumin Level) 3.5 g/dL 3.5-5.2 Protein Total (test code = Protein Total) 8.2 g/dL 6.4-8.3 ALT (test code = ALT) 15 U/L 1-41 AST (test code = AST) 21 U/L 1-40 Globulin (test code = Globulin) 4.7 g/dL 2.9-3.1 H A/G Ratio (test code = A/G Ratio) 0.7 ratio N eGFR AA (test code = eGFR AA) >60 mL/min/1.73 m2 N eGFR (estimated Glomerular Filtration Rate) is an estimated value, calculated from the patient's serum creatinine using the MDRD equation. It is NOT the patient's actual GFR. The eGFR provides a more clinically useful measure of kidney disease than serum creatinine alone.This calculation takes sex and race into account, if the information is provided. If the race is not provided, and the patient is -[place], multiply by 1.212. If sex is not provided, and the patient is female, multiply by 0.742. Results for patients <18 years of age have not been validated by the MDRD study and should be interpreted with caution. eGFR Result Interpretation:eGFR > or = 60 is in the Normal RangeeGFR < 60 may mean kidney diseaseeGFR < 15 may mean kidney failure Ranges recommended by the National Kidney Foundation, http://nkdep.nih.gov Alcohol [id number] 21:46:03* Test Item Value Reference Range Interpretation Comments Ethanol Level (test code = Ethanol Level) <0.00 g/dL 0.00-0.01 Intoxicated 0.080 g/dL or more Ethanol Inst (test code = Ethanol Inst) <0 N Comprehensive Metabolic [id number] 21:46:03* Test Item Value Reference Range Interpretation Comments Sodium Level (test code = Sodium Level) 135.0 mmol/L 135.0-145.0 Potassium Level (test code = Potassium Level) 3.7 mmol/L 3.5-5.1 Chloride Level (test code = Chloride Level) 96 mmol/L 98-105 L CO2 (test code = CO2) 20 mmol/L 22-29 L Anion Gap (test code = Anion Gap) 19 mmol/L 7-16 H BUN (test code = BUN) 13.00 mg/dL 6.00-20.00 Creatinine Level (test code = Creatinine Level) 0.80 mg/dL 0.70-1 .20 BUN/Creat Ratio (test code = BUN/Creat Ratio) 16 N Glucose Level (test code = Glucose Level) 252 mg/dL 70-115 H Calcium Level (test code = Calcium Level) 9.4 mg/dL 8.3-10.5 Alk Phos (test code = Alk Phos) 215 U/L 40-129 H Bilirubin Total (test code = Bilirubin Total) 0.4 mg/dL 0.1-0.9 Albumin Level (test code = Albumin Level) 3.5 g/dL 3.5-5.2 Protein Total (test code = Protein Total) 8.2 g/dL 6.4-8.3 ALT (test code = ALT) 15 U/L 1-41 AST (test code = AST) 21 U/L 1-40 Globulin (test code = Globulin) 4.7 g/dL 2.9-3.1 H A/G Ratio (test code = A/G Ratio) 0.7 ratio N eGFR AA (test code = eGFR AA) >60 mL/min/1.73 m2 N eGFR (estimated Glomerular Filtration Rate) is an estimated value, calculated from the patient's serum creatinine using the MDRD equation. It is NOT the patient's actual GFR. The eGFR provides a more clinically useful measure of kidney disease than serum creatinine alone.This calculation takes sex and race into account, if the information is provided. If the race is not provided, and the patient is -[place], multiply by 1.212. If sex is not provided, and the patient is female, multiply by 0.742. Results for patients <18 years of age have not been validated by the MDRD study and should be interpreted with caution. eGFR Result Interpretation:eGFR > or = 60 is in the Normal RangeeGFR < 60 may mean kidney diseaseeGFR < 15 may mean kidney failure Ranges recommended by the National Kidney Foundation, http://nkdep.nih.gov eGFR Non-AA (test code = eGFR Non-AA) >60.00 mL/min/1.73 m2 N eGFR (estimated Glomerular Filtration Rate) is an estimated value, calculated from the patient's serum creatinine using the MDRD equation. It is NOT the patient's actual GFR. The eGFR provides a more clinically useful measure of kidney disease than serum creatinine alone.This calculation takes sex and race into account, if the information is provided. If the race is not provided, and the patient is -[place], multiply by 1.212. If sex is not provided, and the patient is female, multiply by 0.742. Results for patients <18 years of age have not been validated by the MDRD study and should be interpreted with caution. eGFR Result Interpretation:eGFR > or = 60 is in the Normal RangeeGFR < 60 may mean kidney diseaseeGFR < 15 may mean kidney failure Ranges recommended by the National Kidney Foundation, http://nkdep.nih.gov IG [id number] 21:19:52* Test Item Value Reference Range Interpretation Comments IG (test code = IG) 0.6 % 0.0-5.0 IG Abs (test code = IG Abs) 0 x10 N Complete Blood Count with [id number] 21:19:51* Test Item Value Reference Range Interpretation Comments WBC (test code = WBC) 16.0 x10 4.4-10.5 H RBC (test code = RBC) 3.86 x10 4.10-5.70 L Hgb (test code = Hgb) 9.4 g/dL 13.4-17.4 L Hct (test code = Hct) 31.2 % 38.7-52.0 L MCV (test code = MCV) 80.80 fL 80.00-100.00 MCHC (test code = MCHC) 30.10 g/dL 32.00-37.50 L RDW CV (test code = RDW CV) 16.7 % 11.5-14.5 H MCH (test code = MCH) 24.4 pg 27.0-32.5 L Platelets (test code = Platelets) 772.0 x10 140.0-440.0 H MPV (test code = MPV) 8.3 fL N Slide Review (test code = Slide Review) Auto Auto Result created by [email or web address] nRBC (test code = nRBC) 0 N NRBC Abs (test code = NRBC Abs) 0.00 x10 N IPF (test code = IPF) 0 % N Automated [id number] 21:19:51* Test Item Value Reference Range Interpretation Comments Neutro Auto (test code = Neutro Auto) 82.6 % 36.0-70.0 H Lymph Auto (test code = Lymph Auto) 8.7 % 12.0-44.0 L Borden Auto (test code = Borden Auto) 7.7 % 0.0-11.0 Eos, Auto (test code = Eos, Auto) 0.1 % 0.0-7.0 Basophil Auto (test code = Basophil Auto) 0.3 % 0.0-2.0 Neutro Absolute (test code = Neutro Absolute) 13.2 x10 1.6-7.4 H Lymph Absolute (test code = Lymph Absolute) 1.39 x10 .50-4.60 Borden Absolute (test code = Borden Absolute) 1.23 x10 .00-1.20 H Eos Absolute (test code = Eos Absolute) 0.02 x10 0.00-0.74 Baso Absolute (test code = Baso Absolute) 0.05 x10 0.00-0.21 POC [id number] 11:31:08* Test Item Value Reference Range Interpretation Comments Glucose POC (test code = Glucose POC) 167 mg/dL 70-115 H If you consider your patient critically ill, the Nitish-Accu Check Infrom II meter should not be used for Glucose determination. Draw a venous Glucose and send to the main Lab for analysis. POC [id number] 07:36:11* Test Item Value Reference Range Interpretation Comments Glucose POC (test code = Glucose POC) 221 mg/dL 70-115 H Notify RN or MDIf you consider your patient critically ill, the Nitish-Accu Check Infrom II meter should not be used for Glucose determination. Draw a venous Glucose and send to the main Lab for analysis. POC [id number] 20:26:07* Test Item Value Reference Range Interpretation Comments Glucose POC (test code = Glucose POC) 176 mg/dL 70-115 H Notify RN or MDIf you consider your patient critically ill, the Nitish-Accu Check Infrom II meter should not be used for Glucose determination. Draw a venous Glucose and send to the main Lab for analysis. POC [id number] 16:51:07* Test Item Value Reference Range Interpretation Comments Glucose POC (test code = Glucose POC) 167 mg/dL 70-115 H If you consider your patient critically ill, the Nitish-Accu Check Infrom II meter should not be used for Glucose determination. Draw a venous Glucose and send to the main Lab for analysis. POC [id number] 11:13:15* Test Item Value Reference Range Interpretation Comments Glucose POC (test code = Glucose POC) 224 mg/dL 70-115 H Notify RN or MDIf you consider your patient critically ill, the Nitish-Accu Check Infrom II meter should not be used for Glucose determination. Draw a venous Glucose and send to the main Lab for analysis. POC [id number] 07:31:38* Test Item Value Reference Range Interpretation Comments Glucose POC (test code = Glucose POC) 263 mg/dL 70-115 H Notify RN or MDIf you consider your patient critically ill, the Nitish-Accu Check Infrom II meter should not be used for Glucose determination. Draw a venous Glucose and send to the main Lab for analysis. Basic Metabolic [id number] 06:51:27* Test Item Value Reference Range Interpretation Comments Sodium Level (test code = Sodium Level) 138.0 mmol/L 135.0-145.0 Potassium Level (test code = Potassium Level) 4.7 mmol/L 3.5-5.1 Chloride Level (test code = Chloride Level) 100 mmol/L 98-105 CO2 (test code = CO2) 29 mmol/L 22-29 Anion Gap (test code = Anion Gap) 9 mmol/L 7-16 BUN (test code = BUN) 16.20 mg/dL 6.00-20.00 Creatinine Level (test code = Creatinine Level) 0.70 mg/dL 0.70-1 .20 BUN/Creat Ratio (test code = BUN/Creat Ratio) 23 N Glucose Level (test code = Glucose Level) 263 mg/dL 70-115 H Calcium Level (test code = Calcium Level) 8.8 mg/dL 8.3-10.5 Basic Metabolic [id number] 06:51:27* Test Item Value Reference Range Interpretation Comments Sodium Level (test code = Sodium Level) 138.0 mmol/L 135.0-145.0 Potassium Level (test code = Potassium Level) 4.7 mmol/L 3.5-5.1 Chloride Level (test code = Chloride Level) 100 mmol/L 98-105 CO2 (test code = CO2) 29 mmol/L 22-29 Anion Gap (test code = Anion Gap) 9 mmol/L 7-16 BUN (test code = BUN) 16.20 mg/dL 6.00-20.00 Creatinine Level (test code = Creatinine Level) 0.70 mg/dL 0.70-1 .20 BUN/Creat Ratio (test code = BUN/Creat Ratio) 23 N Glucose Level (test code = Glucose Level) 263 mg/dL 70-115 H Calcium Level (test code = Calcium Level) 8.8 mg/dL 8.3-10.5 eGFR AA (test code = eGFR AA) >60 mL/min/1.73 m2 N eGFR (estimated Glomerular Filtration Rate) is an estimated value, calculated from the patient's serum creatinine using the MDRD equation. It is NOT the patient's actual GFR. The eGFR provides a more clinically useful measure of kidney disease than serum creatinine alone.This calculation takes sex and race into account, if the information is provided. If the race is not provided, and the patient is -[place], multiply by 1.212. If sex is not provided, and the patient is female, multiply by 0.742. Results for patients <18 years of age have not been validated by the MDRD study and should be interpreted with caution. eGFR Result Interpretation:eGFR > or = 60 is in the Normal RangeeGFR < 60 may mean kidney diseaseeGFR < 15 may mean kidney failure Ranges recommended by the National Kidney Foundation, http://nkdep.nih.gov Basic Metabolic [id number] 06:51:27* Test Item Value Reference Range Interpretation Comments Sodium Level (test code = Sodium Level) 138.0 mmol/L 135.0-145.0 Potassium Level (test code = Potassium Level) 4.7 mmol/L 3.5-5.1 Chloride Level (test code = Chloride Level) 100 mmol/L 98-105 CO2 (test code = CO2) 29 mmol/L 22-29 Anion Gap (test code = Anion Gap) 9 mmol/L 7-16 BUN (test code = BUN) 16.20 mg/dL 6.00-20.00 Creatinine Level (test code = Creatinine Level) 0.70 mg/dL 0.70-1 .20 BUN/Creat Ratio (test code = BUN/Creat Ratio) 23 N Glucose Level (test code = Glucose Level) 263 mg/dL 70-115 H Calcium Level (test code = Calcium Level) 8.8 mg/dL 8.3-10.5 eGFR AA (test code = eGFR AA) >60 mL/min/1.73 m2 N eGFR (estimated Glomerular Filtration Rate) is an estimated value, calculated from the patient's serum creatinine using the MDRD equation. It is NOT the patient's actual GFR. The eGFR provides a more clinically useful measure of kidney disease than serum creatinine alone.This calculation takes sex and race into account, if the information is provided. If the race is not provided, and the patient is -[place], multiply by 1.212. If sex is not provided, and the patient is female, multiply by 0.742. Results for patients <18 years of age have not been validated by the MDRD study and should be interpreted with caution. eGFR Result Interpretation:eGFR > or = 60 is in the Normal RangeeGFR < 60 may mean kidney diseaseeGFR < 15 may mean kidney failure Ranges recommended by the National Kidney Foundation, http://nkdep.nih.gov eGFR Non-AA (test code = eGFR Non-AA) >60.00 mL/min/1.73 m2 N eGFR (estimated Glomerular Filtration Rate) is an estimated value, calculated from the patient's serum creatinine using the MDRD equation. It is NOT the patient's actual GFR. The eGFR provides a more clinically useful measure of kidney disease than serum creatinine alone.This calculation takes sex and race into account, if the information is provided. If the race is not provided, and the patient is -[place], multiply by 1.212. If sex is not provided, and the patient is female, multiply by 0.742. Results for patients <18 years of age have not been validated by the MDRD study and should be interpreted with caution. eGFR Result Interpretation:eGFR > or = 60 is in the Normal RangeeGFR < 60 may mean kidney diseaseeGFR < 15 may mean kidney failure Ranges recommended by the National Kidney Foundation, http://nkdep.nih.gov Automated [id number] 06:46:59* Test Item Value Reference Range Interpretation Comments Neutro Auto (test code = Neutro Auto) 53.5 % 36.0-70.0 Lymph Auto (test code = Lymph Auto) 34.2 % 12.0-44.0 Borden Auto (test code = Borden Auto) 7.9 % 0.0-11.0 Eos, Auto (test code = Eos, Auto) 3.1 % 0.0-7.0 Basophil Auto (test code = Basophil Auto) 0.4 % 0.0-2.0 Neutro Absolute (test code = Neutro Absolute) 6.1 x10 1.6-7.4 Lymph Absolute (test code = Lymph Absolute) 3.92 x10 .50-4.60 Borden Absolute (test code = Borden Absolute) .91 x10 .00-1.20 Eos Absolute (test code = Eos Absolute) 0.35 x10 0.00-0.74 Baso Absolute (test code = Baso Absolute) 0.05 x10 0.00-0.21 IG [id number] 06:46:59* Test Item Value Reference Range Interpretation Comments IG (test code = IG) 0.9 % 0.0-5.0 IG Abs (test code = IG Abs) 0 x10 N Complete Blood Count with [id number] 06:46:58* Test Item Value Reference Range Interpretation Comments WBC (test code = WBC) 11.5 x10 4.4-10.5 H RBC (test code = RBC) 3.58 x10 4.10-5.70 L Hgb (test code = Hgb) 8.9 g/dL 13.4-17.4 L Hct (test code = Hct) 29.5 % 38.7-52.0 L MCV (test code = MCV) 82.40 fL 80.00-100.00 MCHC (test code = MCHC) 30.20 g/dL 32.00-37.50 L RDW CV (test code = RDW CV) 16.0 % 11.5-14.5 H MCH (test code = MCH) 24.9 pg 27.0-32.5 L Platelets (test code = Platelets) 777.0 x10 140.0-440.0 H MPV (test code = MPV) 8.3 fL N Slide Review (test code = Slide Review) Auto Auto Result created by [email or web address] nRBC (test code = nRBC) 0 N NRBC Abs (test code = NRBC Abs) 0.00 x10 N IPF (test code = IPF) 0 % N Prothrombin Time and [id number] 06:46:58* Test Item Value Reference Range Interpretation Comments Prothrombin Time (test code = Prothrombin Time) 12.5 seconds 9.8-13 .4 INR (test code = INR) 1.1 ratio 0.6-1.2 POC [id number] 20:30:45* Test Item Value Reference Range Interpretation Comments Glucose POC (test code = Glucose POC) 170 mg/dL 70-115 H If you consider your patient critically ill, the Nitish-Accu Check Infrom II meter should not be used for Glucose determination. Draw a venous Glucose and send to the main Lab for analysis. POC [id number] 16:43:12* Test Item Value Reference Range Interpretation Comments Glucose POC (test code = Glucose POC) 165 mg/dL 70-115 H If you consider your patient critically ill, the Nitish-Accu Check Infrom II meter should not be used for Glucose determination. Draw a venous Glucose and send to the main Lab for analysis. Blood [id number] 12:02:02No growth at 5 days.POC [id number] 11:15:34* Test Item Value Reference Range Interpretation Comments Glucose POC (test code = Glucose POC) 302 mg/dL 70-115 H Notify RN or MDIf you consider your patient critically ill, the Nitish-Accu Check Infrom II meter should not be used for Glucose determination. Draw a venous Glucose and send to the main Lab for analysis. POC [id number] 07:49:14* Test Item Value Reference Range Interpretation Comments Glucose POC (test code = Glucose POC) 272 mg/dL 70-115 H If you consider your patient critically ill, the Nitish-Accu Check Infrom II meter should not be used for Glucose determination. Draw a venous Glucose and send to the main Lab for analysis. POC [id number] 20:59:08* Test Item Value Reference Range Interpretation Comments Glucose POC (test code = Glucose POC) 306 mg/dL 70-115 H Notify RN or MDIf you consider your patient critically ill, the Nitish-Accu Check Infrom II meter should not be used for Glucose determination. Draw a venous Glucose and send to the main Lab for analysis. POC [id number] 16:28:39* Test Item Value Reference Range Interpretation Comments Glucose POC (test code = Glucose POC) 167 mg/dL 70-115 H Notify RN or MDIf you consider your patient critically ill, the Nitish-Accu Check Infrom II meter should not be used for Glucose determination. Draw a venous Glucose and send to the main Lab for analysis. POC [id number] 11:51:31* Test Item Value Reference Range Interpretation Comments Glucose POC (test code = Glucose POC) 275 mg/dL 70-115 H Notify RN or MDIf you consider your patient critically ill, the Nitish-Accu Check Infrom II meter should not be used for Glucose determination. Draw a venous Glucose and send to the main Lab for analysis. POC [id number] 07:48:38* Test Item Value Reference Range Interpretation Comments Glucose POC (test code = Glucose POC) 187 mg/dL 70-115 H Notify RN or MDIf you consider your patient critically ill, the Nitish-Accu Check Infrom II meter should not be used for Glucose determination. Draw a venous Glucose and send to the main Lab for analysis. Basic Metabolic [id number] 05:25:11* Test Item Value Reference Range Interpretation Comments Sodium Level (test code = Sodium Level) 138.0 mmol/L 135.0-145.0 Potassium Level (test code = Potassium Level) 4.2 mmol/L 3.5-5.1 Chloride Level (test code = Chloride Level) 102 mmol/L 98-105 CO2 (test code = CO2) 27 mmol/L 22-29 Anion Gap (test code = Anion Gap) 9 mmol/L 7-16 BUN (test code = BUN) 7.80 mg/dL 6.00-20.00 Creatinine Level (test code = Creatinine Level) 0.50 mg/dL 0.70-1 .20 L BUN/Creat Ratio (test code = BUN/Creat Ratio) 16 N Glucose Level (test code = Glucose Level) 172 mg/dL 70-115 H Calcium Level (test code = Calcium Level) 8.5 mg/dL 8.3-10.5 Basic Metabolic [id number] 05:25:11* Test Item Value Reference Range Interpretation Comments Sodium Level (test code = Sodium Level) 138.0 mmol/L 135.0-145.0 Potassium Level (test code = Potassium Level) 4.2 mmol/L 3.5-5.1 Chloride Level (test code = Chloride Level) 102 mmol/L 98-105 CO2 (test code = CO2) 27 mmol/L 22-29 Anion Gap (test code = Anion Gap) 9 mmol/L 7-16 BUN (test code = BUN) 7.80 mg/dL 6.00-20.00 Creatinine Level (test code = Creatinine Level) 0.50 mg/dL 0.70-1 .20 L BUN/Creat Ratio (test code = BUN/Creat Ratio) 16 N Glucose Level (test code = Glucose Level) 172 mg/dL 70-115 H Calcium Level (test code = Calcium Level) 8.5 mg/dL 8.3-10.5 eGFR AA (test code = eGFR AA) >60 mL/min/1.73 m2 N eGFR (estimated Glomerular Filtration Rate) is an estimated value, calculated from the patient's serum creatinine using the MDRD equation. It is NOT the patient's actual GFR. The eGFR provides a more clinically useful measure of kidney disease than serum creatinine alone.This calculation takes sex and race into account, if the information is provided. If the race is not provided, and the patient is -[place], multiply by 1.212. If sex is not provided, and the patient is female, multiply by 0.742. Results for patients <18 years of age have not been validated by the MDRD study and should be interpreted with caution. eGFR Result Interpretation:eGFR > or = 60 is in the Normal RangeeGFR < 60 may mean kidney diseaseeGFR < 15 may mean kidney failure Ranges recommended by the National Kidney Foundation, http://nkdep.nih.gov Basic Metabolic [id number] 05:25:11* Test Item Value Reference Range Interpretation Comments Sodium Level (test code = Sodium Level) 138.0 mmol/L 135.0-145.0 Potassium Level (test code = Potassium Level) 4.2 mmol/L 3.5-5.1 Chloride Level (test code = Chloride Level) 102 mmol/L 98-105 CO2 (test code = CO2) 27 mmol/L 22-29 Anion Gap (test code = Anion Gap) 9 mmol/L 7-16 BUN (test code = BUN) 7.80 mg/dL 6.00-20.00 Creatinine Level (test code = Creatinine Level) 0.50 mg/dL 0.70-1 .20 L BUN/Creat Ratio (test code = BUN/Creat Ratio) 16 N Glucose Level (test code = Glucose Level) 172 mg/dL 70-115 H Calcium Level (test code = Calcium Level) 8.5 mg/dL 8.3-10.5 eGFR AA (test code = eGFR AA) >60 mL/min/1.73 m2 N eGFR (estimated Glomerular Filtration Rate) is an estimated value, calculated from the patient's serum creatinine using the MDRD equation. It is NOT the patient's actual GFR. The eGFR provides a more clinically useful measure of kidney disease than serum creatinine alone.This calculation takes sex and race into account, if the information is provided. If the race is not provided, and the patient is -[place], multiply by 1.212. If sex is not provided, and the patient is female, multiply by 0.742. Results for patients <18 years of age have not been validated by the MDRD study and should be interpreted with caution. eGFR Result Interpretation:eGFR > or = 60 is in the Normal RangeeGFR < 60 may mean kidney diseaseeGFR < 15 may mean kidney failure Ranges recommended by the National Kidney Foundation, http://nkdep.nih.gov eGFR Non-AA (test code = eGFR Non-AA) >60.00 mL/min/1.73 m2 N eGFR (estimated Glomerular Filtration Rate) is an estimated value, calculated from the patient's serum creatinine using the MDRD equation. It is NOT the patient's actual GFR. The eGFR provides a more clinically useful measure of kidney disease than serum creatinine alone.This calculation takes sex and race into account, if the information is provided. If the race is not provided, and the patient is -[place], multiply by 1.212. If sex is not provided, and the patient is female, multiply by 0.742. Results for patients <18 years of age have not been validated by the MDRD study and should be interpreted with caution. eGFR Result Interpretation:eGFR > or = 60 is in the Normal RangeeGFR < 60 may mean kidney diseaseeGFR < 15 may mean kidney failure Ranges recommended by the National Kidney Foundation, http://nkdep.nih.gov Urinalysis with Culture, if [id number] 05:12:29* Test Item Value Reference Range Interpretation Comments UA Color (test code = UA Color) YELLO Yellow UA Appear (test code = UA Appear) CLEAR Clear UA pH (test code = UA pH) 5 N UA Spec Grav (test code = UA Spec Grav) 1.009 1.001-1.035 UA Glucose (test code = UA Glucose) NEG Negative UA Bili (test code = UA Bili) NEG Negative UA Ketones (test code = UA Ketones) NEG Negative UA Blood (test code = UA Blood) NEG Negative UA Protein (test code = UA Protein) NEG Negative UA Urobilinogen (test code = UA Urobilinogen) 0.2 mg/dL N UA Nitrite (test code = UA Nitrite) NEG Negative UA Leuk Est (test code = UA Leuk Est) NEG Negative UA Micro Ind? (test code = UA Micro Ind?) Not Indicated Not Indicat ed Result created by rule [email or web address]_IND Complete Blood Count with [id number] 05:06:41* Test Item Value Reference Range Interpretation Comments WBC (test code = WBC) 11.4 x10 4.4-10.5 H RBC (test code = RBC) 3.25 x10 4.10-5.70 L Hgb (test code = Hgb) 8.1 g/dL 13.4-17.4 L MCV (test code = MCV) 82.50 fL 80.00-100.00 Hct (test code = Hct) 26.8 % 38.7-52.0 L MCHC (test code = MCHC) 30.20 g/dL 32.00-37.50 L RDW CV (test code = RDW CV) 15.8 % 11.5-14.5 H MCH (test code = MCH) 24.9 pg 27.0-32.5 L Platelets (test code = Platelets) 709.0 x10 140.0-440.0 H MPV (test code = MPV) 8.2 fL N Slide Review (test code = Slide Review) Auto Auto Result created by [email or web address]_REV_AUTO nRBC (test code = nRBC) 0 N NRBC Abs (test code = NRBC Abs) 0.00 x10 N IPF (test code = IPF) 0 % N Automated [id number] 05:06:41* Test Item Value Reference Range Interpretation Comments Neutro Auto (test code = Neutro Auto) 52.8 % 36.0-70.0 Lymph Auto (test code = Lymph Auto) 34.4 % 12.0-44.0 Borden Auto (test code = Borden Auto) 9.2 % 0.0-11.0 Eos, Auto (test code = Eos, Auto) 2.5 % 0.0-7.0 Basophil Auto (test code = Basophil Auto) 0.4 % 0.0-2.0 Neutro Absolute (test code = Neutro Absolute) 6.0 x10 1.6-7.4 Lymph Absolute (test code = Lymph Absolute) 3.92 x10 .50-4.60 Borden Absolute (test code = Borden Absolute) 1.05 x10 .00-1.20 Eos Absolute (test code = Eos Absolute) 0.28 x10 0.00-0.74 Baso Absolute (test code = Baso Absolute) 0.04 x10 0.00-0.21 IG [id number] 05:06:41* Test Item Value Reference Range Interpretation Comments IG (test code = IG) 0.7 % 0.0-5.0 IG Abs (test code = IG Abs) 0 x10 N POC [id number] 21:04:42* Test Item Value Reference Range Interpretation Comments Glucose POC (test code = Glucose POC) 211 mg/dL 70-115 H If you consider your patient critically ill, the Nitish-Accu Check Infrom II meter should not be used for Glucose determination. Draw a venous Glucose and send to the main Lab for analysis. POC [id number] 16:59:08* Test Item Value Reference Range Interpretation Comments Glucose POC (test code = Glucose POC) 231 mg/dL 70-115 H Notify RN or MDIf you consider your patient critically ill, the Nitish-Accu Check Infrom II meter should not be used for Glucose determination. Draw a venous Glucose and send to the main Lab for analysis. POC [id number] 11:36:36* Test Item Value Reference Range Interpretation Comments Glucose POC (test code = Glucose POC) 360 mg/dL 70-115 H Notify RN or MDIf you consider your patient critically ill, the Nitish-Accu Check Infrom II meter should not be used for Glucose determination. Draw a venous Glucose and send to the main Lab for analysis. POC [id number] 07:40:35* Test Item Value Reference Range Interpretation Comments Glucose POC (test code = Glucose POC) 241 mg/dL 70-115 H Notify RN or MDIf you consider your patient critically ill, the Nitish-Accu Check Infrom II meter should not be used for Glucose determination. Draw a venous Glucose and send to the main Lab for analysis. POC [id number] 20:25:31* Test Item Value Reference Range Interpretation Comments Glucose POC (test code = Glucose POC) 306 mg/dL 70-115 H If you consider your patient critically ill, the Nitish-Accu Check Infrom II meter should not be used for Glucose determination. Draw a venous Glucose and send to the main Lab for analysis. POC [id number] 17:11:02* Test Item Value Reference Range Interpretation Comments Glucose POC (test code = Glucose POC) 191 mg/dL 70-115 H Notify RN or MDIf you consider your patient critically ill, the Nitish-Accu Check Infrom II meter should not be used for Glucose determination. Draw a venous Glucose and send to the main Lab for analysis. XR Chest 1 View [id number] 16:29:35Patient: JADE LANGE II Date/Time04/06/2019 16:22 CDTReason [...] Adam FSigned (Electronic Signature): 04/06/2019 4:29 pmPOC [id number] 14:07:01* Test Item Value Reference Range Interpretation Comments Glucose POC (test code = Glucose POC) 276 mg/dL 70-115 H If you consider your patient critically ill, the Nitish-Accu Check Infrom II meter should not be used for Glucose determination. Draw a venous Glucose and send to the main Lab for analysis. POC [id number] 11:12:33* Test Item Value Reference Range Interpretation Comments Glucose POC (test code = Glucose POC) 292 mg/dL 70-115 H If you consider your patient critically ill, the Nitish-Accu Check Infrom II meter should not be used for Glucose determination. Draw a venous Glucose and send to the main Lab for analysis. Urine [id number] 09:34:39* Test Item Value Reference Range Interpretation Comments ORGANISM (test code = ORGANISM) Escherichia coli Amikacin (test code = Amik) S Ampicillin (test code = Amp) R Ampicillin/Sulbactam (test code = Amp/Sul) R Cefazolin (test code = Cefaz) I Cefepime (test code = Cefep) S Cefotaxime (test code = Cefo) S Ceftazidime (test code = Ceftaz) S Ceftriaxone (test code = Ceftri) S Cefuroxime (test code = Cefur) S Ciprofloxacin (test code = Cipro) R Gentamicin (test code = Gent) S Imipenem (test code = Imi) S Levofloxacin (test code = Levo) R Meropenem (test code = Lisandro) S Nitrofurantoin (test code = Nitro) S Piperacillin/Tazobactam (test code = Pip/Jerzy) R Tobramycin (test code = Tobra) S Trimethoprim/Sulfa (test code = SXT) R ORGANISM (test code = ORGANISM2) Escherichia coli Amikacin (test code = Amik) S Ampicillin (test code = Amp) R Ampicillin/Sulbactam (test code = Amp/Sul) R Cefazolin (test code = Cefaz) S Cefepime (test code = Cefep) S Cefotaxime (test code = Cefo) S Ceftazidime (test code = Ceftaz) S Ceftriaxone (test code = Ceftri) S Cefuroxime (test code = Cefur) S Ciprofloxacin (test code = Cipro) R Gentamicin (test code = Gent) S Imipenem (test code = Imi) S Levofloxacin (test code = Levo) R Meropenem (test code = Lisandro) S Nitrofurantoin (test code = Nitro) S Piperacillin/Tazobactam (test code = Pip/Jerzy) S Tobramycin (test code = Tobra) S Trimethoprim/Sulfa (test code = SXT) R Final Report (test code = Final Report) >=100,000 cfu/ ml Escherichia coli >=100,000 cfu/ml Escherichia coli #2 C Urine Added by [email or web address]_INDHemoglobin [id number] 07:40:43* Test Item Value Reference Range Interpretation Comments Hemoglobin A1c (test code = Hemoglobin A1c) 10.5 % 4.8-5.9 H Non Diabetic 4.8- 5.9%Diabetic <7.0% POC [id number] 07:23:37* Test Item Value Reference Range Interpretation Comments Glucose POC (test code = Glucose POC) 308 mg/dL 70-115 H If you consider your patient critically ill, the Nitish-Accu Check Infrom II meter should not be used for Glucose determination. Draw a venous Glucose and send to the main Lab for analysis. 3C ABSC [id number] 05:58:53* Test Item Value Reference Range Interpretation Comments SC1 IS (test code = SC1 IS) NT SC2 IS (test code = SC2 IS) NT SC3 IS (test code = SC3 IS) NT SC1 37 (test code = SC1 37) 0 SC2 37 (test code = SC2 37) 0 SC3 37 (test code = SC3 37) 0 SC1 AHG (test code = SC1 AHG) 0 SC2 AHG (test code = SC2 AHG) 0 SC3 AHG (test code = SC3 AHG) 0 SC1 CC (test code = SC1 CC) 2+ SC2 CC (test code = SC2 CC) 2+ SC3 CC (test code = SC3 CC) 2+ Antibody Screen (3C) (test code = Antibody Screen (3C)) Negative AB SC [id number] 05:58:52* Test Item Value Reference Range Interpretation Comments Previous History (test code = Previous History) Yes Prev History BBID (test code = BBID) [id number] Methodology (test code = Methodology) Test-Tube(TT) Anti-A (test code = Anti-A) 0 Anti-B (test code = Anti-B) 0 Anti-D (test code = Anti-D) 4+ DCon (test code = DCon) NT A1 (test code = A1) 4+ B cells (test code = B cells) 4+ ABORh (test code = ABORh) O POS Protein [id number] 05:39:06* Test Item Value Reference Range Interpretation Comments Protein Total (test code = Protein Total) 7.0 g/dL 6.4-8.3 Albumin [id number] 05:39:06* Test Item Value Reference Range Interpretation Comments Albumin Level (test code = Albumin Level) 3.0 g/dL 3.5-5.2 L [id number] 05:39:06* Test Item Value Reference Range Interpretation Comments Prealbumin (test code = Prealbumin) 10 mg/dL 20-40 L Basic Metabolic [id number] 05:39:05* Test Item Value Reference Range Interpretation Comments Sodium Level (test code = Sodium Level) 135.0 mmol/L 135.0-145.0 Potassium Level (test code = Potassium Level) 4.5 mmol/L 3.5-5.1 Chloride Level (test code = Chloride Level) 98 mmol/L 98-105 CO2 (test code = CO2) 25 mmol/L 22-29 Anion Gap (test code = Anion Gap) 12 mmol/L 7-16 BUN (test code = BUN) 9.20 mg/dL 6.00-20.00 Creatinine Level (test code = Creatinine Level) 0.60 mg/dL 0.70-1 .20 L BUN/Creat Ratio (test code = BUN/Creat Ratio) 15 N Glucose Level (test code = Glucose Level) 299 mg/dL 70-115 H Calcium Level (test code = Calcium Level) 8.5 mg/dL 8.3-10.5 Basic Metabolic [id number] 05:39:05* Test Item Value Reference Range Interpretation Comments Sodium Level (test code = Sodium Level) 135.0 mmol/L 135.0-145.0 Potassium Level (test code = Potassium Level) 4.5 mmol/L 3.5-5.1 Chloride Level (test code = Chloride Level) 98 mmol/L 98-105 CO2 (test code = CO2) 25 mmol/L 22-29 Anion Gap (test code = Anion Gap) 12 mmol/L 7-16 BUN (test code = BUN) 9.20 mg/dL 6.00-20.00 Creatinine Level (test code = Creatinine Level) 0.60 mg/dL 0.70-1 .20 L BUN/Creat Ratio (test code = BUN/Creat Ratio) 15 N Glucose Level (test code = Glucose Level) 299 mg/dL 70-115 H Calcium Level (test code = Calcium Level) 8.5 mg/dL 8.3-10.5 eGFR AA (test code = eGFR AA) >60 mL/min/1.73 m2 N eGFR (estimated Glomerular Filtration Rate) is an estimated value, calculated from the patient's serum creatinine using the MDRD equation. It is NOT the patient's actual GFR. The eGFR provides a more clinically useful measure of kidney disease than serum creatinine alone.This calculation takes sex and race into account, if the information is provided. If the race is not provided, and the patient is -[place], multiply by 1.212. If sex is not provided, and the patient is female, multiply by 0.742. Results for patients <18 years of age have not been validated by the MDRD study and should be interpreted with caution. eGFR Result Interpretation:eGFR > or = 60 is in the Normal RangeeGFR < 60 may mean kidney diseaseeGFR < 15 may mean kidney failure Ranges recommended by the National Kidney Foundation, http://nkdep.nih.gov Basic Metabolic [id number] 05:39:05* Test Item Value Reference Range Interpretation Comments Sodium Level (test code = Sodium Level) 135.0 mmol/L 135.0-145.0 Potassium Level (test code = Potassium Level) 4.5 mmol/L 3.5-5.1 Chloride Level (test code = Chloride Level) 98 mmol/L 98-105 CO2 (test code = CO2) 25 mmol/L 22-29 Anion Gap (test code = Anion Gap) 12 mmol/L 7-16 BUN (test code = BUN) 9.20 mg/dL 6.00-20.00 Creatinine Level (test code = Creatinine Level) 0.60 mg/dL 0.70-1 .20 L BUN/Creat Ratio (test code = BUN/Creat Ratio) 15 N Glucose Level (test code = Glucose Level) 299 mg/dL 70-115 H Calcium Level (test code = Calcium Level) 8.5 mg/dL 8.3-10.5 eGFR AA (test code = eGFR AA) >60 mL/min/1.73 m2 N eGFR (estimated Glomerular Filtration Rate) is an estimated value, calculated from the patient's serum creatinine using the MDRD equation. It is NOT the patient's actual GFR. The eGFR provides a more clinically useful measure of kidney disease than serum creatinine alone.This calculation takes sex and race into account, if the information is provided. If the race is not provided, and the patient is -[place], multiply by 1.212. If sex is not provided, and the patient is female, multiply by 0.742. Results for patients <18 years of age have not been validated by the MDRD study and should be interpreted with caution. eGFR Result Interpretation:eGFR > or = 60 is in the Normal RangeeGFR < 60 may mean kidney diseaseeGFR < 15 may mean kidney failure Ranges recommended by the National Kidney Foundation, http://nkdep.nih.gov eGFR Non-AA (test code = eGFR Non-AA) >60.00 mL/min/1.73 m2 N eGFR (estimated Glomerular Filtration Rate) is an estimated value, calculated from the patient's serum creatinine using the MDRD equation. It is NOT the patient's actual GFR. The eGFR provides a more clinically useful measure of kidney disease than serum creatinine alone.This calculation takes sex and race into account, if the information is provided. If the race is not provided, and the patient is -[place], multiply by 1.212. If sex is not provided, and the patient is female, multiply by 0.742. Results for patients <18 years of age have not been validated by the MDRD study and should be interpreted with caution. eGFR Result Interpretation:eGFR > or = 60 is in the Normal RangeeGFR < 60 may mean kidney diseaseeGFR < 15 may mean kidney failure Ranges recommended by the National Kidney Foundation, http://nkdep.nih.gov Complete Blood Count without [id number] 05:07:31* Test Item Value Reference Range Interpretation Comments WBC (test code = WBC) 15.1 x10 4.4-10.5 H RBC (test code = RBC) 3.63 x10 4.10-5.70 L Hgb (test code = Hgb) 9.1 g/dL 13.4-17.4 L Hct (test code = Hct) 30.0 % 38.7-52.0 L MCV (test code = MCV) 82.60 fL 80.00-100.00 MCH (test code = MCH) 25.1 pg 27.0-32.5 L MCHC (test code = MCHC) 30.30 g/dL 32.00-37.50 L RDW CV (test code = RDW CV) 16.2 % 11.5-14.5 H Platelets (test code = Platelets) 685.0 x10 140.0-440.0 H MPV (test code = MPV) 9.2 fL N nRBC (test code = nRBC) 0 N NRBC Abs (test code = NRBC Abs) 0.00 x10 N IPF (test code = IPF) 0 % N Drugs of Abuse Urine [id number] 01:09:36* Test Item Value Reference Range Interpretation Comments Amphetamine Screen Ur (test code = Amphetamine Screen Ur) Negative Negative For diagnostic purposes only. Positive results should always be assessed in conjunction with a patient's medical history. Barbiturate Screen Ur (test code = Barbiturate Screen Ur) Negative Negative Benzodiazepines Ur (test code = Benzodiazepines Ur) Negative Ne gative Cocaine Screen Ur (test code = Cocaine Screen Ur) Negative Nega tive U Methadone (test code = U Methadone) Negative Negative Opiate Screen Ur (test code = Opiate Screen Ur) POSITIVE Negati ve A U PCP Scrn (test code = U PCP Scrn) Negative Negative U Propoxyphene (test code = U Propoxyphene) Negative Negative Cannabinoid Screen Ur (test code = Cannabinoid Screen Ur) POSITIVE Negative A POC [id number] 21:19:06* Test Item Value Reference Range Interpretation Comments Glucose POC (test code = Glucose POC) 376 mg/dL 70-115 H If you consider your patient critically ill, the Nitish-Accu Check Infrom II meter should not be used for Glucose determination. Draw a venous Glucose and send to the main Lab for analysis. Red Blood Cells [id number] 19:22:25* Test Item Value Reference Range Interpretation Comments # of Units (test code = # of Units) 2 N RBC Trn Reason (test code = RBC Trn Reason) Surgery N RBC Product Ready (test code = RBC Product Ready) RBC Ready 3C ABSC [id number] 19:14:26* Test Item Value Reference Range Interpretation Comments SC1 IS (test code = SC1 IS) NT SC2 IS (test code = SC2 IS) NT SC3 IS (test code = SC3 IS) NT SC1 37 (test code = SC1 37) 0 SC2 37 (test code = SC2 37) 0 SC3 37 (test code = SC3 37) 0 SC1 AHG (test code = SC1 AHG) 0 SC2 AHG (test code = SC2 AHG) 0 SC3 AHG (test code = SC3 AHG) 0 SC1 CC (test code = SC1 CC) 2+ SC2 CC (test code = SC2 CC) 2+ SC3 CC (test code = SC3 CC) 2+ Antibody Screen (3C) (test code = Antibody Screen (3C)) Negative AB SC Hx [id number] 18:37:56O [id number] 18:36:35* Test Item Value Reference Range Interpretation Comments Previous History (test code = Previous History) Yes Prev History BBID (test code = BBID) [id number] Methodology (test code = Methodology) Test-Tube(TT) Anti-A (test code = Anti-A) 0 Anti-B (test code = Anti-B) 0 Anti-D (test code = Anti-D) 4+ DCon (test code = DCon) NT A1 (test code = A1) 4+ B cells (test code = B cells) 4+ ABORh (test code = ABORh) O POS POC [id number] 16:22:41* Test Item Value Reference Range Interpretation Comments Glucose POC (test code = Glucose POC) 327 mg/dL 70-115 H Notify RN or MDIf you consider your patient critically ill, the Nitish-Accu Check Infrom II meter should not be used for Glucose determination. Draw a venous Glucose and send to the main Lab for analysis. POC [id number] 11:16:36* Test Item Value Reference Range Interpretation Comments Glucose POC (test code = Glucose POC) 351 mg/dL 70-115 H Notify RN or MDIf you consider your patient critically ill, the Nitish-Accu Check Infrom II meter should not be used for Glucose determination. Draw a venous Glucose and send to the main Lab for analysis. Erythrocyte Sedimentation Rate [id number] 08:15:41* Test Item Value Reference Range Interpretation Comments ESR STAT (test code = ESR STAT) 129 mm/hr 0-9 H POC [id number] 07:43:40* Test Item Value Reference Range Interpretation Comments Glucose POC (test code = Glucose POC) 338 mg/dL 70-115 H Notify RN or MDIf you consider your patient critically ill, the Nitish-Accu Check Infrom II meter should not be used for Glucose determination. Draw a venous Glucose and send to the main Lab for analysis. Complete Blood Count without [id number] 07:10:35* Test Item Value Reference Range Interpretation Comments WBC (test code = WBC) 12.8 x10 4.4-10.5 H RBC (test code = RBC) 3.55 x10 4.10-5.70 L Hgb (test code = Hgb) 8.9 g/dL 13.4-17.4 L Hct (test code = Hct) 29.1 % 38.7-52.0 L MCV (test code = MCV) 82.00 fL 80.00-100.00 MCH (test code = MCH) 25.1 pg 27.0-32.5 L MCHC (test code = MCHC) 30.60 g/dL 32.00-37.50 L RDW CV (test code = RDW CV) 16.1 % 11.5-14.5 H Platelets (test code = Platelets) 690.0 x10 140.0-440.0 H MPV (test code = MPV) 9.0 fL N nRBC (test code = nRBC) 0 N NRBC Abs (test code = NRBC Abs) 0.00 x10 N IPF (test code = IPF) 0 % N Basic Metabolic [id number] 07:07:06* Test Item Value Reference Range Interpretation Comments Sodium Level (test code = Sodium Level) 134.0 mmol/L 135.0-145.0 L Potassium Level (test code = Potassium Level) 4.8 mmol/L 3.5-5.1 Chloride Level (test code = Chloride Level) 99 mmol/L 98-105 CO2 (test code = CO2) 22 mmol/L 22-29 Anion Gap (test code = Anion Gap) 13 mmol/L 7-16 BUN (test code = BUN) 12.30 mg/dL 6.00-20.00 Creatinine Level (test code = Creatinine Level) 0.70 mg/dL 0.70-1 .20 BUN/Creat Ratio (test code = BUN/Creat Ratio) 18 N Glucose Level (test code = Glucose Level) 329 mg/dL 70-115 H Calcium Level (test code = Calcium Level) 8.7 mg/dL 8.3-10.5 C Reactive [id number] 07:07:06* Test Item Value Reference Range Interpretation Comments CRP (test code = CRP) 187.3 mg/L 0.0-5.0 H Basic Metabolic [id number] 07:07:06* Test Item Value Reference Range Interpretation Comments Sodium Level (test code = Sodium Level) 134.0 mmol/L 135.0-145.0 L Potassium Level (test code = Potassium Level) 4.8 mmol/L 3.5-5.1 Chloride Level (test code = Chloride Level) 99 mmol/L 98-105 CO2 (test code = CO2) 22 mmol/L 22-29 Anion Gap (test code = Anion Gap) 13 mmol/L 7-16 BUN (test code = BUN) 12.30 mg/dL 6.00-20.00 Creatinine Level (test code = Creatinine Level) 0.70 mg/dL 0.70-1 .20 BUN/Creat Ratio (test code = BUN/Creat Ratio) 18 N Glucose Level (test code = Glucose Level) 329 mg/dL 70-115 H Calcium Level (test code = Calcium Level) 8.7 mg/dL 8.3-10.5 eGFR AA (test code = eGFR AA) >60 mL/min/1.73 m2 N eGFR (estimated Glomerular Filtration Rate) is an estimated value, calculated from the patient's serum creatinine using the MDRD equation. It is NOT the patient's actual GFR. The eGFR provides a more clinically useful measure of kidney disease than serum creatinine alone.This calculation takes sex and race into account, if the information is provided. If the race is not provided, and the patient is -[place], multiply by 1.212. If sex is not provided, and the patient is female, multiply by 0.742. Results for patients <18 years of age have not been validated by the MDRD study and should be interpreted with caution. eGFR Result Interpretation:eGFR > or = 60 is in the Normal RangeeGFR < 60 may mean kidney diseaseeGFR < 15 may mean kidney failure Ranges recommended by the National Kidney Foundation, http://nkdep.nih.gov Basic Metabolic [id number] 07:07:06* Test Item Value Reference Range Interpretation Comments Sodium Level (test code = Sodium Level) 134.0 mmol/L 135.0-145.0 L Potassium Level (test code = Potassium Level) 4.8 mmol/L 3.5-5.1 Chloride Level (test code = Chloride Level) 99 mmol/L 98-105 CO2 (test code = CO2) 22 mmol/L 22-29 Anion Gap (test code = Anion Gap) 13 mmol/L 7-16 BUN (test code = BUN) 12.30 mg/dL 6.00-20.00 Creatinine Level (test code = Creatinine Level) 0.70 mg/dL 0.70-1 .20 BUN/Creat Ratio (test code = BUN/Creat Ratio) 18 N Glucose Level (test code = Glucose Level) 329 mg/dL 70-115 H Calcium Level (test code = Calcium Level) 8.7 mg/dL 8.3-10.5 eGFR AA (test code = eGFR AA) >60 mL/min/1.73 m2 N eGFR (estimated Glomerular Filtration Rate) is an estimated value, calculated from the patient's serum creatinine using the MDRD equation. It is NOT the patient's actual GFR. The eGFR provides a more clinically useful measure of kidney disease than serum creatinine alone.This calculation takes sex and race into account, if the information is provided. If the race is not provided, and the patient is -[place], multiply by 1.212. If sex is not provided, and the patient is female, multiply by 0.742. Results for patients <18 years of age have not been validated by the MDRD study and should be interpreted with caution. eGFR Result Interpretation:eGFR > or = 60 is in the Normal RangeeGFR < 60 may mean kidney diseaseeGFR < 15 may mean kidney failure Ranges recommended by the National Kidney Foundation, http://nkdep.nih.gov eGFR Non-AA (test code = eGFR Non-AA) >60.00 mL/min/1.73 m2 N eGFR (estimated Glomerular Filtration Rate) is an estimated value, calculated from the patient's serum creatinine using the MDRD equation. It is NOT the patient's actual GFR. The eGFR provides a more clinically useful measure of kidney disease than serum creatinine alone.This calculation takes sex and race into account, if the information is provided. If the race is not provided, and the patient is -[place], multiply by 1.212. If sex is not provided, and the patient is female, multiply by 0.742. Results for patients <18 years of age have not been validated by the MDRD study and should be interpreted with caution. eGFR Result Interpretation:eGFR > or = 60 is in the Normal RangeeGFR < 60 may mean kidney diseaseeGFR < 15 may mean kidney failure Ranges recommended by the National Kidney Foundation, http://nkdep.nih.gov POC [id number] 21:54:36* Test Item Value Reference Range Interpretation Comments Glucose POC (test code = Glucose POC) 281 mg/dL 70-115 H Notify RN or MDIf you consider your patient critically ill, the Nitish-Accu Check Infrom II meter should not be used for Glucose determination. Draw a venous Glucose and send to the main Lab for analysis. POC [id number] 16:45:59* Test Item Value Reference Range Interpretation Comments Glucose POC (test code = Glucose POC) 246 mg/dL 70-115 H Notify RN or MDIf you consider your patient critically ill, the Nitish-Accu Check Infrom II meter should not be used for Glucose determination. Draw a venous Glucose and send to the main Lab for analysis. Blood [id number] 15:01:47No growth at 5 days.Urinalysis Microscopic 2019-04-04 12:52:27* Test Item Value Reference Range Interpretation Comments UA WBC (test code = UA WBC) 20-29 0-5 A UA RBC (test code = UA RBC) 0-5 0-5 UA Bacteria (test code = UA Bacteria) Profuse A UA Squam Epithelial (test code = UA Squam Epithelial) 0-5 Urinalysis with Culture, if [id number] 12:37:15* Test Item Value Reference Range Interpretation Comments UA Color (test code = UA Color) YELLO Yellow UA Appear (test code = UA Appear) CLEAR Clear UA pH (test code = UA pH) 6.5 UA Spec Grav (test code = UA Spec Grav) 1.032 1.001-1.035 UA Glucose (test code = UA Glucose) 1000 mg/dL Negative A UA Bili (test code = UA Bili) NEG Negative UA Ketones (test code = UA Ketones) 5 mg/dL Negative UA Blood (test code = UA Blood) 25 cells/mcL Negative A UA Protein (test code = UA Protein) NEG Negative UA Urobilinogen (test code = UA Urobilinogen) 1 mg/dL >0.2 A UA Nitrite (test code = UA Nitrite) POS Negative A UA Leuk Est (test code = UA Leuk Est) NEG Negative UA Micro Ind? (test code = UA Micro Ind?) Indicated Not Indicate d A Result created by rule [email or web address] Comprehensive Metabolic [id number] 11:57:22* Test Item Value Reference Range Interpretation Comments Sodium Level (test code = Sodium Level) 135.0 mmol/L 135.0-145.0 Potassium Level (test code = Potassium Level) 4.5 mmol/L 3.5-5.1 Chloride Level (test code = Chloride Level) 96 mmol/L 98-105 L CO2 (test code = CO2) 28 mmol/L 22-29 Anion Gap (test code = Anion Gap) 11 mmol/L 7-16 BUN (test code = BUN) 8.70 mg/dL 6.00-20.00 Creatinine Level (test code = Creatinine Level) 0.60 mg/dL 0.70-1 .20 L BUN/Creat Ratio (test code = BUN/Creat Ratio) 14 N Glucose Level (test code = Glucose Level) 478 mg/dL 70-115 Critical results called to PENELOPE PEREZ RN at 04/04/2019 11:55:00 CDT by . Read back and verified? YES Calcium Level (test code = Calcium Level) 8.7 mg/dL 8.3-10.5 Alk Phos (test code = Alk Phos) 331 U/L 40-129 H Bilirubin Total (test code = Bilirubin Total) 0.3 mg/dL 0.1-0.9 Albumin Level (test code = Albumin Level) 3.1 g/dL 3.5-5.2 L Protein Total (test code = Protein Total) 7.6 g/dL 6.4-8.3 ALT (test code = ALT) 20 U/L 1-41 AST (test code = AST) 12 U/L 1-40 Globulin (test code = Globulin) 4.5 g/dL 2.9-3.1 H A/G Ratio (test code = A/G Ratio) 0.7 ratio N eGFR AA (test code = eGFR AA) >60 mL/min/1.73 m2 N eGFR (estimated Glomerular Filtration Rate) is an estimated value, calculated from the patient's serum creatinine using the MDRD equation. It is NOT the patient's actual GFR. The eGFR provides a more clinically useful measure of kidney disease than serum creatinine alone.This calculation takes sex and race into account, if the information is provided. If the race is not provided, and the patient is -[place], multiply by 1.212. If sex is not provided, and the patient is female, multiply by 0.742. Results for patients <18 years of age have not been validated by the MDRD study and should be interpreted with caution. eGFR Result Interpretation:eGFR > or = 60 is in the Normal RangeeGFR < 60 may mean kidney diseaseeGFR < 15 may mean kidney failure Ranges recommended by the National Kid[employer] Foundation, http://nkdep.nih.gov Comprehensive Metabolic [id number] 11:57:22* Test Item Value Reference Range Interpretation Comments Sodium Level (test code = Sodium Level) 135.0 mmol/L 135.0-145.0 Potassium Level (test code = Potassium Level) 4.5 mmol/L 3.5-5.1 Chloride Level (test code = Chloride Level) 96 mmol/L 98-105 L CO2 (test code = CO2) 28 mmol/L 22-29 Anion Gap (test code = Anion Gap) 11 mmol/L 7-16 BUN (test code = BUN) 8.70 mg/dL 6.00-20.00 Creatinine Level (test code = Creatinine Level) 0.60 mg/dL 0.70-1 .20 L BUN/Creat Ratio (test code = BUN/Creat Ratio) 14 N Glucose Level (test code = Glucose Level) 478 mg/dL 70-115 Critical results called to PENELOPE PEREZ RN at 04/04/2019 11:55:00 CDT by . Read back and verified? YES Calcium Level (test code = Calcium Level) 8.7 mg/dL 8.3-10.5 Alk Phos (test code = Alk Phos) 331 U/L 40-129 H Bilirubin Total (test code = Bilirubin Total) 0.3 mg/dL 0.1-0.9 Albumin Level (test code = Albumin Level) 3.1 g/dL 3.5-5.2 L Protein Total (test code = Protein Total) 7.6 g/dL 6.4-8.3 ALT (test code = ALT) 20 U/L 1-41 AST (test code = AST) 12 U/L 1-40 Globulin (test code = Globulin) 4.5 g/dL 2.9-3.1 H A/G Ratio (test code = A/G Ratio) 0.7 ratio N eGFR AA (test code = eGFR AA) >60 mL/min/1.73 m2 N eGFR (estimated Glomerular Filtration Rate) is an estimated value, calculated from the patient's serum creatinine using the MDRD equation. It is NOT the patient's actual GFR. The eGFR provides a more clinically useful measure of kidney disease than serum creatinine alone.This calculation takes sex and race into account, if the information is provided. If the race is not provided, and the patient is -[place], multiply by 1.212. If sex is not provided, and the patient is female, multiply by 0.742. Results for patients <18 years of age have not been validated by the MDRD study and should be interpreted with caution. eGFR Result Interpretation:eGFR > or = 60 is in the Normal RangeeGFR < 60 may mean kidney diseaseeGFR < 15 may mean kidney failure Ranges recommended by the National Kidney Foundation, http://nkdep.nih.gov Comprehensive Metabolic [id number] 11:57:22* Test Item Value Reference Range Interpretation Comments Sodium Level (test code = Sodium Level) 135.0 mmol/L 135.0-145.0 Potassium Level (test code = Potassium Level) 4.5 mmol/L 3.5-5.1 Chloride Level (test code = Chloride Level) 96 mmol/L 98-105 L CO2 (test code = CO2) 28 mmol/L 22-29 Anion Gap (test code = Anion Gap) 11 mmol/L 7-16 BUN (test code = BUN) 8.70 mg/dL 6.00-20.00 Creatinine Level (test code = Creatinine Level) 0.60 mg/dL 0.70-1 .20 L BUN/Creat Ratio (test code = BUN/Creat Ratio) 14 N Glucose Level (test code = Glucose Level) 478 mg/dL 70-115 Critical results called to PENELOPE PEREZ RN at 04/04/2019 11:55:00 CDT by . Read back and verified? YES Calcium Level (test code = Calcium Level) 8.7 mg/dL 8.3-10.5 Alk Phos (test code = Alk Phos) 331 U/L 40-129 H Bilirubin Total (test code = Bilirubin Total) 0.3 mg/dL 0.1-0.9 Albumin Level (test code = Albumin Level) 3.1 g/dL 3.5-5.2 L Protein Total (test code = Protein Total) 7.6 g/dL 6.4-8.3 ALT (test code = ALT) 20 U/L 1-41 AST (test code = AST) 12 U/L 1-40 Globulin (test code = Globulin) 4.5 g/dL 2.9-3.1 H A/G Ratio (test code = A/G Ratio) 0.7 ratio N eGFR AA (test code = eGFR AA) >60 mL/min/1.73 m2 N eGFR (estimated Glomerular Filtration Rate) is an estimated value, calculated from the patient's serum creatinine using the MDRD equation. It is NOT the patient's actual GFR. The eGFR provides a more clinically useful measure of kidney disease than serum creatinine alone.This calculation takes sex and race into account, if the information is provided. If the race is not provided, and the patient is -[place], multiply by 1.212. If sex is not provided, and the patient is female, multiply by 0.742. Results for patients <18 years of age have not been validated by the MDRD study and should be interpreted with caution. eGFR Result Interpretation:eGFR > or = 60 is in the Normal RangeeGFR < 60 may mean kidney diseaseeGFR < 15 may mean kidney failure Ranges recommended by the National Kidney Foundation, http://nkdep.nih.gov eGFR Non-AA (test code = eGFR Non-AA) >60.00 mL/min/1.73 m2 N eGFR (estimated Glomerular Filtration Rate) is an estimated value, calculated from the patient's serum creatinine using the MDRD equation. It is NOT the patient's actual GFR. The eGFR provides a more clinically useful measure of kidney disease than serum creatinine alone.This calculation takes sex and race into account, if the information is provided. If the race is not provided, and the patient is -[place], multiply by 1.212. If sex is not provided, and the patient is female, multiply by 0.742. Results for patients <18 years of age have not been validated by the MDRD study and should be interpreted with caution. eGFR Result Interpretation:eGFR > or = 60 is in the Normal RangeeGFR < 60 may mean kidney diseaseeGFR < 15 may mean kidney failure Ranges recommended by the National Kidney Foundation, http://nkdep.nih.gov Erythrocyte Sedimentation Rate [id number] 11:41:50* Test Item Value Reference Range Interpretation Comments ESR STAT (test code = ESR STAT) 113 mm/hr 0-9 H Lactic Acid, Plasma (Venous)2019-04-04 11:32:31* Test Item Value Reference Range Interpretation Comments Lactic Acid, Plasma (Venous) (test code = Lactic Acid, Plasma (Venous)) 1.6 mmol/L 0.5-1.9 Complete Blood Count with [id number] 11:22:31* Test Item Value Reference Range Interpretation Comments WBC (test code = WBC) 14.1 x10 4.4-10.5 H RBC (test code = RBC) 3.64 x10 4.10-5.70 L Hgb (test code = Hgb) 9.1 g/dL 13.4-17.4 L MCV (test code = MCV) 81.90 fL 80.00-100.00 Hct (test code = Hct) 29.8 % 38.7-52.0 L MCHC (test code = MCHC) 30.50 g/dL 32.00-37.50 L MCH (test code = MCH) 25.0 pg 27.0-32.5 L RDW CV (test code = RDW CV) 15.9 % 11.5-14.5 H Platelets (test code = Platelets) 575.0 x10 140.0-440.0 H MPV (test code = MPV) 9.1 fL N Slide Review (test code = Slide Review) Auto Auto Result created by [email or web address]_[email or web address] nRBC (test code = nRBC) 0 N NRBC Abs (test code = NRBC Abs) 0.00 x10 N IPF (test code = IPF) 0 % N Automated [id number] 11:22:31* Test Item Value Reference Range Interpretation Comments Neutro Auto (test code = Neutro Auto) 70.9 % 36.0-70.0 H Lymph Auto (test code = Lymph Auto) 20.0 % 12.0-44.0 Borden Auto (test code = Borden Auto) 7.1 % 0.0-11.0 Eos, Auto (test code = Eos, Auto) 1.1 % 0.0-7.0 Basophil Auto (test code = Basophil Auto) 0.3 % 0.0-2.0 Neutro Absolute (test code = Neutro Absolute) 10.0 x10 1.6-7.4 H Lymph Absolute (test code = Lymph Absolute) 2.83 x10 .50-4.60 Borden Absolute (test code = Borden Absolute) 1.00 x10 .00-1.20 Eos Absolute (test code = Eos Absolute) 0.15 x10 0.00-0.74 Baso Absolute (test code = Baso Absolute) 0.04 x10 0.00-0.21 IG [id number] 11:22:31* Test Item Value Reference Range Interpretation Comments IG (test code = IG) 0.6 % 0.0-5.0 IG Abs (test code = IG Abs) 0 x10 N Wound Culture w/ Gram [id number] 10:17:52* Test Item Value Reference Range Interpretation Comments ORGANISM (test code = ORGANISM) Methicillin-Resistant Staphylococcu s aureus Chloramphenicol (test code = Chlor) S Ciprofloxacin (test code = Cipro) R Clindamycin (test code = Clinda) R Erythromycin (test code = Eryth) R Gentamicin (test code = Gent) R Levofloxacin (test code = Levo) R Linezolid (test code = Linez) S Oxacillin (test code = Ox) R Rifampin (test code = Rif) S Tetracycline (test code = Tetra) R Trimethoprim/Sulfa (test code = SXT) S Vancomycin (test code = Vanc) S Amended Final Report (test code = Amended Final Report ) Few Methicillin- Resistant Staphylococcus aureus Contact isolation recommended Moderate Diphtheroids No Anaerobes Isolated at 3 Days Gram Stain Report (test code = Gram Stain Report) Rare White Blood Cells No organisms seen. Wound Culture w/ Gram [id number] 09:27:59* Test Item Value Reference Range Interpretation Comments ORGANISM (test code = ORGANISM) Methicillin-Resistant Staphylococcu s aureus Chloramphenicol (test code = Chlor) S Ciprofloxacin (test code = Cipro) R Clindamycin (test code = Clinda) R Erythromycin (test code = Eryth) R Gentamicin (test code = Gent) R Levofloxacin (test code = Levo) R Linezolid (test code = Linez) S Oxacillin (test code = Ox) R Rifampin (test code = Rif) S Tetracycline (test code = Tetra) R Trimethoprim/Sulfa (test code = SXT) S Vancomycin (test code = Vanc) S Final Report (test code = Final Report) Few Methicilli n-Resistant Staphylococcus aureus Moderate Diphtheroids No Anaerobes Isolated at 3 Days Gram Stain Report (test code = Gram Stain Report) Rare White Blood Cells No organisms seen. Blood [id number] 00:02:07No growth at 5 days.Blood [id number] 00:01:26No growth at [address] Spine Thoracic w/o [id number] 23:05:50 Patient: JADE BOX am Date/Time01/23/2019 22:53 CDTReason for ExamBack painReportCT THORACIC SPINE WI THOUT CONTRASTLocation: [id number] history painTechnique:Helical axial CT scan was performed. [...] normal without evidence of paravertebral hematoma or mass.Ther e is hypertrophic facet arthropathy at the mid spine more prominent on the right at T9-T10.IMPRESSION:No acute abnormality. Mild DJD. Final Dictated b y: MD Guardado Maria VDictated DT/TM: 01/23/2019 11:04 pmSigned by: MD Guardado Maria VSigned (Electronic Signature): 01/23/2019 11:05 pmCT Spine Lumbar w/o [id number] 23:03:48Patient: JADE BOX Date/Time01/23/2019 22:53 CDTReason for ExamBack painReportCT LUMBAR SPINE WITHOUT CONTRASTLocation: [id number] history painTechnique:Helical axial CT scan was performed. [...] correlation adam mmended. Final Dictated by: MD Guardado Maria VDictated DT/TM: 02/2019 11:00 pmSigned by: MD Guardado Maria VSigned (Electronic Signature): 11:03 pmCT Spine Cervical w/o [id number] 22:44:01Patient: JADE BOX Date/Time01/23/2019 22:40 CDTReason for ExamBack painReportCT CERVICAL SPINELoc ation: [id number] HISTORY: painTechnique:Helical axial CT scan of the [...] demonstrated.IMPRESSI ON:Normal exam. Final Dictated by: MD Guardado Maria VDictated DT/T M: 01/23/2019 10:42 pmSigned by: MD Guardado Maria VSigned (Electronic Signatur e): 01/23/2019 10:44 pmCT Pelvis w/o [id number] 18:22:47Patient: JADE LANGE II Date/Time01/09/2019 17:46 CDTReason for ExamSepsisReportCT SCAN OF THE PELVIS WITHOUT CONTRASTLocation: [id number] HISTORY: Sepsis. Pressure ulcersTECHNIQUE: Helical CT of the pelvis without IV contrast without complication. Exam perfor med without IV contrast has limited sensitivity for detection of mass or inflamm ation. Exam was performed on an up-to-date helical CT scanner. Coronal and sag ittal images were reconstructed.This exam was performed according to our [facility] ental dose- optimization program, which includes [...] and biopsy results. Final Dictated by: MD Jae, Patito VDictrd DT/TM: 01/09/2019 6:03 pmSigne d by: MD Jae, Patito VSigned (Electronic Signature): 01/09/2019 6:22 pmXR Chest 1 View CVAD Insertion [id number] 16:02:33Patient: JADE LANGE II Date/Time10/26/2018 15:30 CSTReason [...] Signature): 10/26/2018 4:02 pmCT Femur w/o Contrast [id number] 23:52:32Patient: JADE LANGE II Date/Time10/17/2018 23:38 CSTReason [...] lymph node which is likely reactive.LOCA TION: [id number] CT exam was performed according to our departmental dose optimizat ion program, which includes automated exposure control, adjustment of the mA and /or kV according to the patient size and/or use of iterative reconstructive tech nique. Final Dictated by: MD Andrade Melanie CDictated DT/TM: 09/21 11:44 pmSigned by: MD Andrade Melanie CSigned (Electronic Signature): 10/17/2018 11:52 pmBLOOD [id number] 19:01:00* Test Item Value Reference Range Interpretation Comments CULTURE (BEAKER) (test code = 1095) No growth in 5 days BLOOD [id number] 19:01:00* Test Item Value Reference Range Interpretation Comments CULTURE (BEAKER) (test code = 1095) No growth in 5 days BLOOD [id number] 07:01:00* Test Item Value Reference Range Interpretation Comments CULTURE (BEAKER) (test code = 1095) No growth in 5 days BLOOD [id number] 07:01:00* Test Item Value Reference Range Interpretation Comments CULTURE (BEAKER) (test code = 1095) No growth in 5 days POCT-GLUCOSE [id number] 11:48:00* Test Item Value Reference Range Interpretation Comments POC-GLUCOSE METER (BEAKER) (test code = 1538) 151 mg/dL 70-110 H TESTED AT [facility] [address] [facility] [address] POCT-GLUCOSE [id number] 08:10:00* Test Item Value Reference Range Interpretation Comments POC-GLUCOSE METER (BEAKER) (test code = 1538) 178 mg/dL 70-110 H TESTED AT [facility] [address] [facility] [address] [id number] 06:47:00* Test Item Value Reference Range Interpretation Comments PHOSPHORUS (BEAKER) (test code = 604) 4.6 mg/dL 2.3-4.7 [id number] 06:47:00* Test Item Value Reference Range Interpretation Comments MAGNESIUM (BEAKER) (test code = 627) 2.1 mg/dL 1.6-2.6 BASIC METABOLIC [id number] 06:47:00* Test Item Value Reference Range Interpretation Comments SODIUM (BEAKER) (test code = 381) 139 meq/L 136-145 POTASSIUM (BEAKER) (test code = 379) 4.0 meq/L 3.5-5.1 CHLORIDE (BEAKER) (test code = 382) 104 meq/L 98-107 CO2 (BEAKER) (test code = 355) 27 meq/L 22-29 BLOOD UREA NITROGEN (BEAKER) (test code = 354) 15 mg/dL 7-21 CREATININE (BEAKER) (test code = 358) 0.88 mg/dL 0.57-1.25 GLUCOSE RANDOM (BEAKER) (test code = 652) 192 mg/dL 70-105 H CALCIUM (BEAKER) (test code = 697) 9.4 mg/dL 8.4-10.2 EGFR (BEAKER) (test code = 1092) 98 mL/min/1.73 sq m ESTIMATED GFR IS NOT ACCURATE CREATININE CLEARANCE IN PREDICTING GLOMERULAR FILTRATION RATE. ESTIMATED GFR IS NOT APPLICABLE FOR DIALYSIS PATIENTS. HEPATIC FUNCTION [id number] 06:47:00* Test Item Value Reference Range Interpretation Comments TOTAL PROTEIN (BEAKER) (test code = 770) 8.0 gm/dL 6.0-8.3 ALBUMIN (BEAKER) (test code = 1145) 3.5 g/dL 3.5-5.0 BILIRUBIN TOTAL (BEAKER) (test code = 377) 0.3 mg/dL 0.2-1.2 BILIRUBIN DIRECT (BEAKER) (test code = 706) 0.1 mg/dL 0.1-0.5 ALKALINE PHOSPHATASE (BEAKER) (test code = 346) 176 U/L 40-150 H AST (SGOT) (BEAKER) (test code = 353) 22 U/L 5-34 ALT (SGPT) (BEAKER) (test code = 347) 39 U/L 6-55 CBC W/PLT COUNT & AUTO [id number] 06:09:00* Test Item Value Reference Range Interpretation Comments WHITE BLOOD CELL COUNT (BEAKER) (test code = 775) 8.7 K/ L 3.5- 10.5 RED BLOOD CELL COUNT (BEAKER) (test code = 761) 4.06 M/ L 4.63-6 .08 L HEMOGLOBIN (BEAKER) (test code = 410) 10.8 GM/DL 13.7-17.5 L HEMATOCRIT (BEAKER) (test code = 411) 34.5 % 40.1-51.0 L MEAN CORPUSCULAR VOLUME (BEAKER) (test code = 753) 85.0 fL 79. 0-92.2 MEAN CORPUSCULAR HEMOGLOBIN (BEAKER) (test code = 751) 26.6 pg 25.7-32.2 MEAN CORPUSCULAR HEMOGLOBIN CONC (BEAKER) (test code = 752) 31.3 GM/DL 32.3-36.5 L RED CELL DISTRIBUTION WIDTH (BEAKER) (test code = 412) 15.1 % 11.6-14.4 H PLATELET COUNT (BEAKER) (test code = 756) 490 K/CU MM 150-450 H MEAN PLATELET VOLUME (BEAKER) (test code = 754) 8.9 fL 9.4-12 .4 L NUCLEATED RED BLOOD CELLS (BEAKER) (test code = 413) 0 /100 WBC 0 -0 NEUTROPHILS RELATIVE PERCENT (BEAKER) (test code = 429) 35 % LYMPHOCYTES RELATIVE PERCENT (BEAKER) (test code = 430) 52 % MONOCYTES RELATIVE PERCENT (BEAKER) (test code = 431) 9 % EOSINOPHILS RELATIVE PERCENT (BEAKER) (test code = 432) 4 % BASOPHILS RELATIVE PERCENT (BEAKER) (test code = 437) 1 % NEUTROPHILS ABSOLUTE COUNT (BEAKER) (test code = 670) 3.03 K/ L 1.78-5.38 LYMPHOCYTES ABSOLUTE COUNT (BEAKER) (test code = 414) 4.49 K/ L 1.32-3.57 H MONOCYTES ABSOLUTE COUNT (BEAKER) (test code = 415) 0.75 K/ L 0. 30-0.82 EOSINOPHILS ABSOLUTE COUNT (BEAKER) (test code = 416) 0.30 K/ L 0.04-0.54 BASOPHILS ABSOLUTE COUNT (BEAKER) (test code = 417) 0.07 K/ L 0. 01-0.08 IMMATURE GRANULOCYTES-RELATIVE PERCENT (BEAKER) (test code = 2801) 0 % 0-1 POCT-GLUCOSE [id number] 21:21:00* Test Item Value Reference Range Interpretation Comments POC-GLUCOSE METER (BEAKER) (test code = 1538) 139 mg/dL 70-110 H TESTED AT [address] [address] POCT-GLUCOSE [id number] 17:49:00* Test Item Value Reference Range Interpretation Comments POC-GLUCOSE METER (BEAKER) (test code = 1538) 167 mg/dL 70-110 H TESTED AT [address] [address] POCT-GLUCOSE [id number] 11:34:00* Test Item Value Reference Range Interpretation Comments POC-GLUCOSE METER (BEAKER) (test code = 1538) 88 mg/dL 70-110 TESTED AT [address] [address] POCT-GLUCOSE [id number] 08:20:00* Test Item Value Reference Range Interpretation Comments POC-GLUCOSE METER (BEAKER) (test code = 1538) 149 mg/dL 70-110 H TESTED AT [address] [address] WOUND CULTURE + GRAM [id number] 07:29:00* Test Item Value Reference Range Interpretation Comments CULTURE (BEAKER) (test code = 1095) A 4+ Same organism has been isolated from cultures(s) of the same body site and collection date. Repeat identification and susceptibility testing performed only after consultation with the clinical microbiology laboratory.Refer to previous culture ofMethicillin resistant Staphylococcus aureus GRAM STAIN RESULT (BEAKER) (test code = 1123) 4+ WBCs GRAM STAIN RESULT (BEAKER) (test code = 710965) 4+ gra m positive cocci in clusters WOUND CULTURE + GRAM [id number] 07:26:00* Test Item Value Reference Range Interpretation Comments CULTURE (BEAKER) (test code = 1095) METHICILLIN RESISTANT ST APHYLOCOCCUS AUREUS A 4+ Methicillin resistant Sta phylococcus aureus Clindamycin (test code = 10) S Erythromycin (test code = 4) R Linezolid (test code = 40) S Nitrofurantoin (test code = 23) S Oxacillin (test code = 14) R Rifampin (test code = 43) S Tetracycline (test code = 2) S Trimethoprim + Sulfamethoxazole (test code = 47) S Vancomycin (test code = 13) S GRAM STAIN RESULT (BEAKER) (test code = 1123) <1+ WBCs GRAM STAIN RESULT (BEAKER) (test code = 379630) No organisms seen CBC W/PLT COUNT & AUTO [id number] 05:47:00* Test Item Value Reference Range Interpretation Comments WHITE BLOOD CELL COUNT (BEAKER) (test code = 775) 8.3 K/ L 3.5- 10.5 RED BLOOD CELL COUNT (BEAKER) (test code = 761) 4.10 M/ L 4.63-6 .08 L HEMOGLOBIN (BEAKER) (test code = 410) 10.9 GM/DL 13.7-17.5 L HEMATOCRIT (BEAKER) (test code = 411) 35.2 % 40.1-51.0 L MEAN CORPUSCULAR VOLUME (BEAKER) (test code = 753) 85.9 fL 79. 0-92.2 MEAN CORPUSCULAR HEMOGLOBIN (BEAKER) (test code = 751) 26.6 pg 25.7-32.2 MEAN CORPUSCULAR HEMOGLOBIN CONC (BEAKER) (test code = 752) 31.0 GM/DL 32.3-36.5 L RED CELL DISTRIBUTION WIDTH (BEAKER) (test code = 412) 15.0 % 11.6-14.4 H PLATELET COUNT (BEAKER) (test code = 756) 447 K/CU MM 150-450 MEAN PLATELET VOLUME (BEAKER) (test code = 754) 9.0 fL 9.4-12 .4 L NUCLEATED RED BLOOD CELLS (BEAKER) (test code = 413) 0 /100 WBC 0 -0 NEUTROPHILS RELATIVE PERCENT (BEAKER) (test code = 429) 39 % LYMPHOCYTES RELATIVE PERCENT (BEAKER) (test code = 430) 47 % MONOCYTES RELATIVE PERCENT (BEAKER) (test code = 431) 8 % EOSINOPHILS RELATIVE PERCENT (BEAKER) (test code = 432) 6 % BASOPHILS RELATIVE PERCENT (BEAKER) (test code = 437) 1 % NEUTROPHILS ABSOLUTE COUNT (BEAKER) (test code = 670) 3.24 K/ L 1.78-5.38 LYMPHOCYTES ABSOLUTE COUNT (BEAKER) (test code = 414) 3.84 K/ L 1.32-3.57 H MONOCYTES ABSOLUTE COUNT (BEAKER) (test code = 415) 0.63 K/ L 0. 30-0.82 EOSINOPHILS ABSOLUTE COUNT (BEAKER) (test code = 416) 0.48 K/ L 0.04-0.54 BASOPHILS ABSOLUTE COUNT (BEAKER) (test code = 417) 0.04 K/ L 0. 01-0.08 IMMATURE GRANULOCYTES-RELATIVE PERCENT (BEAKER) (test code = 2801) 0 % 0-1 [id number] 05:45:00* Test Item Value Reference Range Interpretation Comments PHOSPHORUS (BEAKER) (test code = 604) 4.9 mg/dL 2.3-4.7 H [id number] 05:45:00* Test Item Value Reference Range Interpretation Comments MAGNESIUM (BEAKER) (test code = 627) 2.1 mg/dL 1.6-2.6 BASIC METABOLIC [id number] 05:45:00* Test Item Value Reference Range Interpretation Comments SODIUM (BEAKER) (test code = 381) 141 meq/L 136-145 POTASSIUM (BEAKER) (test code = 379) 3.8 meq/L 3.5-5.1 CHLORIDE (BEAKER) (test code = 382) 104 meq/L 98-107 CO2 (BEAKER) (test code = 355) 29 meq/L 22-29 BLOOD UREA NITROGEN (BEAKER) (test code = 354) 11 mg/dL 7-21 CREATININE (BEAKER) (test code = 358) 0.66 mg/dL 0.57-1.25 GLUCOSE RANDOM (BEAKER) (test code = 652) 120 mg/dL 70-105 H CALCIUM (BEAKER) (test code = 697) 9.6 mg/dL 8.4-10.2 EGFR (BEAKER) (test code = 1092) 137 mL/min/1.73 sq m ESTIMATED GFR IS NOT ACCURATE CREATININE CLEARANCE IN PREDICTING GLOMERULAR FILTRATION RATE. ESTIMATED GFR IS NOT APPLICABLE FOR DIALYSIS PATIENTS. HEPATIC FUNCTION [id number] 05:45:00* Test Item Value Reference Range Interpretation Comments TOTAL PROTEIN (BEAKER) (test code = 770) 8.2 gm/dL 6.0-8.3 ALBUMIN (BEAKER) (test code = 1145) 3.6 g/dL 3.5-5.0 BILIRUBIN TOTAL (BEAKER) (test code = 377) 0.4 mg/dL 0.2-1.2 BILIRUBIN DIRECT (BEAKER) (test code = 706) 0.2 mg/dL 0.1-0.5 ALKALINE PHOSPHATASE (BEAKER) (test code = 346) 187 U/L 40-150 H AST (SGOT) (BEAKER) (test code = 353) 30 U/L 5-34 ALT (SGPT) (BEAKER) (test code = 347) 49 U/L 6-55 POCT-GLUCOSE [id number] 21:59:00* Test Item Value Reference Range Interpretation Comments POC-GLUCOSE METER (BEAKER) (test code = 1538) 120 mg/dL 70-110 H TESTED AT [place] [id number] [facility] [address] POCT-GLUCOSE [id number] 17:59:00* Test Item Value Reference Range Interpretation Comments POC-GLUCOSE METER (BEAKER) (test code = 1538) 97 mg/dL 70-110 TESTED AT [facility] [address] [facility] [address] VANCOMYCIN LEVEL, [id number] 16:57:00* Test Item Value Reference Range Interpretation Comments VANCOMYCIN TROUGH (BEAKER) (test code = 522) 7.8 ug/mL 10.0-20.0 L POCT-GLUCOSE [id number] 13:33:00* Test Item Value Reference Range Interpretation Comments POC-GLUCOSE METER (BEAKER) (test code = 1538) 95 mg/dL 70-110 TESTED AT [place] [id number] [facility] [address] [id number] 13:19:00* Test Item Value Reference Range Interpretation Comments PHOSPHORUS (BEAKER) (test code = 604) 4.3 mg/dL 2.3-4.7 [id number] 13:19:00* Test Item Value Reference Range Interpretation Comments MAGNESIUM (BEAKER) (test code = 627) 2.1 mg/dL 1.6-2.6 BASIC METABOLIC [id number] 13:19:00* Test Item Value Reference Range Interpretation Comments SODIUM (BEAKER) (test code = 381) 138 meq/L 136-145 POTASSIUM (BEAKER) (test code = 379) 4.0 meq/L 3.5-5.1 CHLORIDE (BEAKER) (test code = 382) 103 meq/L 98-107 CO2 (BEAKER) (test code = 355) 27 meq/L 22-29 BLOOD UREA NITROGEN (BEAKER) (test code = 354) 10 mg/dL 7-21 CREATININE (BEAKER) (test code = 358) 0.63 mg/dL 0.57-1.25 GLUCOSE RANDOM (BEAKER) (test code = 652) 93 mg/dL 70-105 CALCIUM (BEAKER) (test code = 697) 9.0 mg/dL 8.4-10.2 EGFR (BEAKER) (test code = 1092) 144 mL/min/1.73 sq m ESTIMATED GFR IS NOT ACCURATE CREATININE CLEARANCE IN PREDICTING GLOMERULAR FILTRATION RATE. ESTIMATED GFR IS NOT APPLICABLE FOR DIALYSIS PATIENTS. HEPATIC FUNCTION [id number] 13:19:00* Test Item Value Reference Range Interpretation Comments TOTAL PROTEIN (BEAKER) (test code = 770) 8.0 gm/dL 6.0-8.3 ALBUMIN (BEAKER) (test code = 1145) 3.5 g/dL 3.5-5.0 BILIRUBIN TOTAL (BEAKER) (test code = 377) 0.3 mg/dL 0.2-1.2 BILIRUBIN DIRECT (BEAKER) (test code = 706) 0.2 mg/dL 0.1-0.5 ALKALINE PHOSPHATASE (BEAKER) (test code = 346) 192 U/L 40-150 H AST (SGOT) (BEAKER) (test code = 353) 36 U/L 5-34 H ALT (SGPT) (BEAKER) (test code = 347) 50 U/L 6-55 CBC W/PLT COUNT & AUTO [id number] 13:07:00* Test Item Value Reference Range Interpretation Comments WHITE BLOOD CELL COUNT (BEAKER) (test code = 775) 7.8 K/ L 3.5- 10.5 RED BLOOD CELL COUNT (BEAKER) (test code = 761) 3.73 M/ L 4.63-6 .08 L HEMOGLOBIN (BEAKER) (test code = 410) 10.1 GM/DL 13.7-17.5 L HEMATOCRIT (BEAKER) (test code = 411) 32.1 % 40.1-51.0 L MEAN CORPUSCULAR VOLUME (BEAKER) (test code = 753) 86.1 fL 79. 0-92.2 MEAN CORPUSCULAR HEMOGLOBIN (BEAKER) (test code = 751) 27.1 pg 25.7-32.2 MEAN CORPUSCULAR HEMOGLOBIN CONC (BEAKER) (test code = 752) 31.5 GM/DL 32.3-36.5 L RED CELL DISTRIBUTION WIDTH (BEAKER) (test code = 412) 15.4 % 11.6-14.4 H PLATELET COUNT (BEAKER) (test code = 756) 412 K/CU MM 150-450 MEAN PLATELET VOLUME (BEAKER) (test code = 754) 9.0 fL 9.4-12 .4 L NUCLEATED RED BLOOD CELLS (BEAKER) (test code = 413) 0 /100 WBC 0 -0 NEUTROPHILS RELATIVE PERCENT (BEAKER) (test code = 429) 37 % LYMPHOCYTES RELATIVE PERCENT (BEAKER) (test code = 430) 47 % MONOCYTES RELATIVE PERCENT (BEAKER) (test code = 431) 9 % EOSINOPHILS RELATIVE PERCENT (BEAKER) (test code = 432) 7 % BASOPHILS RELATIVE PERCENT (BEAKER) (test code = 437) 1 % NEUTROPHILS ABSOLUTE COUNT (BEAKER) (test code = 670) 2.86 K/ L 1.78-5.38 LYMPHOCYTES ABSOLUTE COUNT (BEAKER) (test code = 414) 3.64 K/ L 1.32-3.57 H MONOCYTES ABSOLUTE COUNT (BEAKER) (test code = 415) 0.69 K/ L 0. 30-0.82 EOSINOPHILS ABSOLUTE COUNT (BEAKER) (test code = 416) 0.52 K/ L 0.04-0.54 BASOPHILS ABSOLUTE COUNT (BEAKER) (test code = 417) 0.04 K/ L 0. 01-0.08 IMMATURE GRANULOCYTES-RELATIVE PERCENT (BEAKER) (test code = 2801) 0 % 0-1 POCT-GLUCOSE [id number] 11:31:00* Test Item Value Reference Range Interpretation Comments POC-GLUCOSE METER (BEAKER) (test code = 1538) 162 mg/dL 70-110 H TESTED AT [address] [address] POCT-GLUCOSE [id number] 08:18:00* Test Item Value Reference Range Interpretation Comments POC-GLUCOSE METER (BEAKER) (test code = 1538) 219 mg/dL 70-110 H TESTED AT [address] [address] POCT-GLUCOSE [id number] 21:40:00* Test Item Value Reference Range Interpretation Comments POC-GLUCOSE METER (BEAKER) (test code = 1538) 130 mg/dL 70-110 H TESTED AT [address] [address] POCT-GLUCOSE [id number] 20:11:00* Test Item Value Reference Range Interpretation Comments POC-GLUCOSE METER (BEAKER) (test code = 1538) 156 mg/dL 70-110 H TESTED AT [address] [address] HEMOGLOBIN [id number] 19:32:00* Test Item Value Reference Range Interpretation Comments HEMOGLOBIN A1C (BEAKER) (test code = 368) 9.3 % 4.3-6.1 H VANCOMYCIN LEVEL, [id number] 17:43:00* Test Item Value Reference Range Interpretation Comments VANCOMYCIN TROUGH (BEAKER) (test code = 522) 9.2 ug/mL 10.0-20.0 L POCT-GLUCOSE [id number] 13:32:00* Test Item Value Reference Range Interpretation Comments POC-GLUCOSE METER (BEAKER) (test code = 1538) 213 mg/dL 70-110 H TESTED AT [address] [address] POCT-GLUCOSE [id number] 11:53:00* Test Item Value Reference Range Interpretation Comments POC-GLUCOSE METER (BEAKER) (test code = 1538) 283 mg/dL 70-110 H TESTED AT [address] [address] T4, [id number] 08:37:00* Test Item Value Reference Range Interpretation Comments FREE T4 (BEAKER) (test code = 655) 0.92 ng/dL 0.70-1.48 TSH/FREE T4 IF [id number] 07:35:00* Test Item Value Reference Range Interpretation Comments THYROID STIMULATING HORMONE (BEAKER) (test code = 772) 8.07 uIU/mL 0.35-4.94 H C-REACTIVE [id number] 07:11:00* Test Item Value Reference Range Interpretation Comments C-REACTIVE PROTEIN (BEAKER) (test code = 676) 17.40 mg/dL 0.00-0.5 0 H POCT-GLUCOSE [id number] 06:59:00* Test Item Value Reference Range Interpretation Comments POC-GLUCOSE METER (BEAKER) (test code = 1538) 236 mg/dL 70-110 H TESTED AT [address] [address] POCT-LACTIC ACID, [id number] 06:37:00* Test Item Value Reference Range Interpretation Comments POC-LACTIC ACID, VENOUS (BEAKER) (test code = 2805) 0.7 mmol/L 0. 9-1.7 L TESTED AT [place] [address] [id number] 05:12:00* Test Item Value Reference Range Interpretation Comments PROCALCITONIN (BEAKER) (test code = 3036) 0.07 ng/mL <0.05 H SEPSIS RISK (ng/mL)Low: 0.05-0.50Intermediate: 0.51-2.00High: > =2.01POCT-LACTIC ACID, [id number] 04:16:00* Test Item Value Reference Range Interpretation Comments POC-LACTIC ACID, VENOUS (BEAKER) (test code = 2805) 0.8 mmol/L 0. 9-1.7 L TESTED AT [address] [address] POCT-GLUCOSE [id number] 04:14:00* Test Item Value Reference Range Interpretation Comments POC-GLUCOSE METER (BEAKER) (test code = 1538) 280 mg/dL 70-110 H TESTED AT [address] [address] BASIC METABOLIC [id number] 01:38:00* Test Item Value Reference Range Interpretation Comments SODIUM (BEAKER) (test code = 381) 135 meq/L 136-145 L POTASSIUM (BEAKER) (test code = 379) 3.7 meq/L 3.5-5.1 CHLORIDE (BEAKER) (test code = 382) 103 meq/L 98-107 CO2 (BEAKER) (test code = 355) 22 meq/L 22-29 BLOOD UREA NITROGEN (BEAKER) (test code = 354) 12 mg/dL 7-21 CREATININE (BEAKER) (test code = 358) 0.82 mg/dL 0.57-1.25 GLUCOSE RANDOM (BEAKER) (test code = 652) 341 mg/dL 70-105 H CALCIUM (BEAKER) (test code = 697) 9.0 mg/dL 8.4-10.2 EGFR (BEAKER) (test code = 1092) 106 mL/min/1.73 sq m ESTIMATED GFR IS NOT ACCURATE CREATININE CLEARANCE IN PREDICTING GLOMERULAR FILTRATION RATE. ESTIMATED GFR IS NOT APPLICABLE FOR DIALYSIS PATIENTS. CBC W/PLT COUNT & AUTO [id number] 01:17:00* Test Item Value Reference Range Interpretation Comments WHITE BLOOD CELL COUNT (BEAKER) (test code = 775) 13.8 K/ L 3.5- 10.5 H RED BLOOD CELL COUNT (BEAKER) (test code = 761) 3.85 M/ L 4.63-6 .08 L HEMOGLOBIN (BEAKER) (test code = 410) 10.3 GM/DL 13.7-17.5 L HEMATOCRIT (BEAKER) (test code = 411) 33.0 % 40.1-51.0 L MEAN CORPUSCULAR VOLUME (BEAKER) (test code = 753) 85.7 fL 79. 0-92.2 MEAN CORPUSCULAR HEMOGLOBIN (BEAKER) (test code = 751) 26.8 pg 25.7-32.2 MEAN CORPUSCULAR HEMOGLOBIN CONC (BEAKER) (test code = 752) 31.2 GM/DL 32.3-36.5 L RED CELL DISTRIBUTION WIDTH (BEAKER) (test code = 412) 15.8 % 11.6-14.4 H PLATELET COUNT (BEAKER) (test code = 756) 379 K/CU MM 150-450 MEAN PLATELET VOLUME (BEAKER) (test code = 754) 9.3 fL 9.4-12 .4 L NUCLEATED RED BLOOD CELLS (BEAKER) (test code = 413) 0 /100 WBC 0 -0 NEUTROPHILS RELATIVE PERCENT (BEAKER) (test code = 429) 56 % LYMPHOCYTES RELATIVE PERCENT (BEAKER) (test code = 430) 30 % MONOCYTES RELATIVE PERCENT (BEAKER) (test code = 431) 10 % EOSINOPHILS RELATIVE PERCENT (BEAKER) (test code = 432) 4 % BASOPHILS RELATIVE PERCENT (BEAKER) (test code = 437) 0 % NEUTROPHILS ABSOLUTE COUNT (BEAKER) (test code = 670) 7.74 K/ L 1.78-5.38 H LYMPHOCYTES ABSOLUTE COUNT (BEAKER) (test code = 414) 4.13 K/ L 1.32-3.57 H MONOCYTES ABSOLUTE COUNT (BEAKER) (test code = 415) 1.31 K/ L 0. 30-0.82 H EOSINOPHILS ABSOLUTE COUNT (BEAKER) (test code = 416) 0.49 K/ L 0.04-0.54 BASOPHILS ABSOLUTE COUNT (BEAKER) (test code = 417) 0.04 K/ L 0. 01-0.08 IMMATURE GRANULOCYTES-RELATIVE PERCENT (BEAKER) (test code = 2801) 0 % 0-1 RAD, CHEST, 1 VIEW, NON [id number] 16:35:00Reason for exam:->check picc placementShould this be [...] Rodriguez Verified Date/Time: 08/31/2018 16:35:17 Reading Location: [facility] Reading Room -GLUCOSE [id number] 12:42:00* Test Item Value Reference Range Interpretation Comments POC-GLUCOSE METER (BEAKER) (test code = 1538) 101 mg/dL 70-110 TESTED AT [facility] [address] [place] [address] RAD, CHEST, 1 VIEW, NON [id number] 12:30:00Reason for exam:->VASCULAR ACCESS PROBLEMShould this be [...] contours are normal. Osseous structures unremarkable. Signed: Angeline Uribe MDReport Verified Date/Time: 08/31/2018 12:30:28 Reading Location: [facility] Reading Room US CULTURE + [id number] 08:53:00* Test Item Value Reference Range Interpretation Comments CULTURE (BEAKER) (test code = 1095) No fungus isolated in 28 days FUNGUS SMEAR (BEAKER) (test code = 1406) No fungi seen POCT-GLUCOSE [id number] 12:39:00* Test Item Value Reference Range Interpretation Comments POC-GLUCOSE METER (BEAKER) (test code = 1538) 94 mg/dL 70-110 TESTED AT [address] [address] CBC (HEMOGRAM ONLY)2018-08-15 11:41:00* Test Item Value Reference Range Interpretation Comments WHITE BLOOD CELL COUNT (BEAKER) (test code = 775) 11.1 K/ L 3.5- 10.5 H RED BLOOD CELL COUNT (BEAKER) (test code = 761) 3.24 M/ L 4.63-6 .08 L HEMOGLOBIN (BEAKER) (test code = 410) 8.8 GM/DL 13.7-17.5 L HEMATOCRIT (BEAKER) (test code = 411) 28.9 % 40.1-51.0 L MEAN CORPUSCULAR VOLUME (BEAKER) (test code = 753) 89.2 fL 79. 0-92.2 MEAN CORPUSCULAR HEMOGLOBIN (BEAKER) (test code = 751) 27.2 pg 25.7-32.2 MEAN CORPUSCULAR HEMOGLOBIN CONC (BEAKER) (test code = 752) 30.4 GM/DL 32.3-36.5 L RED CELL DISTRIBUTION WIDTH (BEAKER) (test code = 412) 15.6 % 11.6-14.4 H PLATELET COUNT (BEAKER) (test code = 756) 657 K/CU MM 150-450 H MEAN PLATELET VOLUME (BEAKER) (test code = 754) 8.1 fL 9.4-12 .4 L NUCLEATED RED BLOOD CELLS (BEAKER) (test code = 413) 0 /100 WBC 0 -0 POCT-GLUCOSE [id number] 09:17:00* Test Item Value Reference Range Interpretation Comments POC-GLUCOSE METER (BEAKER) (test code = 1538) 139 mg/dL 70-110 H TESTED AT [address] [address] POCT-GLUCOSE [id number] 21:23:00* Test Item Value Reference Range Interpretation Comments POC-GLUCOSE METER (BEAKER) (test code = 1538) 144 mg/dL 70-110 H TESTED AT [address] [address] POCT-GLUCOSE [id number] 17:35:00* Test Item Value Reference Range Interpretation Comments POC-GLUCOSE METER (BEAKER) (test code = 1538) 254 mg/dL 70-110 H TESTED AT [address] [address] POCT-GLUCOSE [id number] 11:41:00* Test Item Value Reference Range Interpretation Comments POC-GLUCOSE METER (BEAKER) (test code = 1538) 190 mg/dL 70-110 H TESTED AT [address] [address] POCT-GLUCOSE [id number] 07:43:00* Test Item Value Reference Range Interpretation Comments POC-GLUCOSE METER (BEAKER) (test code = 1538) 228 mg/dL 70-110 H TESTED AT [address] [address] POCT-GLUCOSE [id number] 21:02:00* Test Item Value Reference Range Interpretation Comments POC-GLUCOSE METER (BEAKER) (test code = 1538) 182 mg/dL 70-110 H TESTED AT [address] [address] POCT-GLUCOSE [id number] 17:20:00* Test Item Value Reference Range Interpretation Comments POC-GLUCOSE METER (BEAKER) (test code = 1538) 174 mg/dL 70-110 H TESTED AT [address] [address] POCT-GLUCOSE [id number] 12:04:00* Test Item Value Reference Range Interpretation Comments POC-GLUCOSE METER (BEAKER) (test code = 1538) 233 mg/dL 70-110 H TESTED AT [address] [address] POCT-GLUCOSE [id number] 08:45:00* Test Item Value Reference Range Interpretation Comments POC-GLUCOSE METER (BEAKER) (test code = 1538) 194 mg/dL 70-110 H TESTED AT [address] [address] POCT-GLUCOSE [id number] 21:00:00* Test Item Value Reference Range Interpretation Comments POC-GLUCOSE METER (BEAKER) (test code = 1538) 315 mg/dL 70-110 H TESTED AT [address] [address] POCT-GLUCOSE [id number] 17:17:00* Test Item Value Reference Range Interpretation Comments POC-GLUCOSE METER (BEAKER) (test code = 1538) 191 mg/dL 70-110 H TESTED AT [address] [address] POCT-GLUCOSE [id number] 11:56:00* Test Item Value Reference Range Interpretation Comments POC-GLUCOSE METER (BEAKER) (test code = 1538) 138 mg/dL 70-110 H TESTED AT [address] [address] POCT-GLUCOSE [id number] 08:34:00* Test Item Value Reference Range Interpretation Comments POC-GLUCOSE METER (BEAKER) (test code = 1538) 235 mg/dL 70-110 H TESTED AT [address] [address] BASIC METABOLIC [id number] 05:10:00* Test Item Value Reference Range Interpretation Comments SODIUM (BEAKER) (test code = 381) 138 meq/L 136-145 POTASSIUM (BEAKER) (test code = 379) 4.2 meq/L 3.5-5.1 CHLORIDE (BEAKER) (test code = 382) 103 meq/L 98-107 CO2 (BEAKER) (test code = 355) 27 meq/L 22-29 BLOOD UREA NITROGEN (BEAKER) (test code = 354) 17 mg/dL 7-21 CREATININE (BEAKER) (test code = 358) 0.75 mg/dL 0.57-1.25 GLUCOSE RANDOM (BEAKER) (test code = 652) 188 mg/dL 70-105 H CALCIUM (BEAKER) (test code = 697) 9.1 mg/dL 8.4-10.2 EGFR (BEAKER) (test code = 1092) 118 mL/min/1.73 sq m ESTIMATED GFR IS NOT ACCURATE CREATININE CLEARANCE IN PREDICTING GLOMERULAR FILTRATION RATE. ESTIMATED GFR IS NOT APPLICABLE FOR DIALYSIS PATIENTS. CBC (HEMOGRAM ONLY)2018-08-12 04:53:00* Test Item Value Reference Range Interpretation Comments WHITE BLOOD CELL COUNT (BEAKER) (test code = 775) 14.1 K/ L 3.5- 10.5 H RED BLOOD CELL COUNT (BEAKER) (test code = 761) 3.39 M/ L 4.63-6 .08 L HEMOGLOBIN (BEAKER) (test code = 410) 8.8 GM/DL 13.7-17.5 L HEMATOCRIT (BEAKER) (test code = 411) 30.6 % 40.1-51.0 L MEAN CORPUSCULAR VOLUME (BEAKER) (test code = 753) 90.3 fL 79. 0-92.2 MEAN CORPUSCULAR HEMOGLOBIN (BEAKER) (test code = 751) 26.0 pg 25.7-32.2 MEAN CORPUSCULAR HEMOGLOBIN CONC (BEAKER) (test code = 752) 28.8 GM/DL 32.3-36.5 L RED CELL DISTRIBUTION WIDTH (BEAKER) (test code = 412) 15.7 % 11.6-14.4 H PLATELET COUNT (BEAKER) (test code = 756) 848 K/CU MM 150-450 H MEAN PLATELET VOLUME (BEAKER) (test code = 754) 8.0 fL 9.4-12 .4 L NUCLEATED RED BLOOD CELLS (BEAKER) (test code = 413) 0 /100 WBC 0 -0 POCT-GLUCOSE [id number] 20:53:00* Test Item Value Reference Range Interpretation Comments POC-GLUCOSE METER (BEAKER) (test code = 1538) 249 mg/dL 70-110 H TESTED AT [facility] [address] [facility] [address] POCT-GLUCOSE [id number] 19:02:00* Test Item Value Reference Range Interpretation Comments POC-GLUCOSE METER (BEAKER) (test code = 1538) 295 mg/dL 70-110 H TESTED AT [address] [address] POCT-GLUCOSE [id number] 14:25:00* Test Item Value Reference Range Interpretation Comments POC-GLUCOSE METER (BEAKER) (test code = 1538) 192 mg/dL 70-110 H TESTED AT [address] [address] POCT-GLUCOSE [id number] 14:25:00* Test Item Value Reference Range Interpretation Comments POC-GLUCOSE METER (BEAKER) (test code = 1538) 214 mg/dL 70-110 H TESTED AT [address] [address] POCT-GLUCOSE [id number] 21:50:00* Test Item Value Reference Range Interpretation Comments POC-GLUCOSE METER (BEAKER) (test code = 1538) 188 mg/dL 70-110 H TESTED AT [address] [address] POCT-GLUCOSE [id number] 18:25:00* Test Item Value Reference Range Interpretation Comments POC-GLUCOSE METER (BEAKER) (test code = 1538) 205 mg/dL 70-110 H TESTED AT [address] [address] POCT-GLUCOSE [id number] 12:28:00* Test Item Value Reference Range Interpretation Comments POC-GLUCOSE METER (BEAKER) (test code = 1538) 259 mg/dL 70-110 H TESTED AT [address] [address] POCT-GLUCOSE [id number] 07:50:00* Test Item Value Reference Range Interpretation Comments POC-GLUCOSE METER (BEAKER) (test code = 1538) 220 mg/dL 70-110 H TESTED AT [address] [address] POCT-GLUCOSE [id number] 22:03:00* Test Item Value Reference Range Interpretation Comments POC-GLUCOSE METER (BEAKER) (test code = 1538) 208 mg/dL 70-110 H TESTED AT [address] [address] POCT-GLUCOSE [id number] 17:25:00* Test Item Value Reference Range Interpretation Comments POC-GLUCOSE METER (BEAKER) (test code = 1538) 124 mg/dL 70-110 H TESTED AT [address] [address] POCT-GLUCOSE [id number] 11:52:00* Test Item Value Reference Range Interpretation Comments POC-GLUCOSE METER (BEAKER) (test code = 1538) 143 mg/dL 70-110 H TESTED AT [address] [address] POCT-GLUCOSE [id number] 07:52:00* Test Item Value Reference Range Interpretation Comments POC-GLUCOSE METER (BEAKER) (test code = 1538) 209 mg/dL 70-110 H TESTED AT [address] [address] POCT-GLUCOSE [id number] 20:58:00* Test Item Value Reference Range Interpretation Comments POC-GLUCOSE METER (BEAKER) (test code = 1538) 183 mg/dL 70-110 H TESTED AT [address] [address] POCT-GLUCOSE [id number] 17:25:00* Test Item Value Reference Range Interpretation Comments POC-GLUCOSE METER (BEAKER) (test code = 1538) 173 mg/dL 70-110 H TESTED AT [address] [address] POCT-GLUCOSE [id number] 12:29:00* Test Item Value Reference Range Interpretation Comments POC-GLUCOSE METER (BEAKER) (test code = 1538) 285 mg/dL 70-110 H TESTED AT [address] [address] POCT-GLUCOSE [id number] 07:53:00* Test Item Value Reference Range Interpretation Comments POC-GLUCOSE METER (BEAKER) (test code = 1538) 224 mg/dL 70-110 H TESTED AT [address] [address] CBC W/PLT COUNT & AUTO [id number] 07:11:00* Test Item Value Reference Range Interpretation Comments WHITE BLOOD CELL COUNT (BEAKER) (test code = 775) 12.2 K/ L 3.5- 10.5 H RED BLOOD CELL COUNT (BEAKER) (test code = 761) 2.91 M/ L 4.63-6 .08 L HEMOGLOBIN (BEAKER) (test code = 410) 7.8 GM/DL 13.7-17.5 L HEMATOCRIT (BEAKER) (test code = 411) 26.8 % 40.1-51.0 L MEAN CORPUSCULAR VOLUME (BEAKER) (test code = 753) 92.1 fL 79. 0-92.2 MEAN CORPUSCULAR HEMOGLOBIN (BEAKER) (test code = 751) 26.8 pg 25.7-32.2 MEAN CORPUSCULAR HEMOGLOBIN CONC (BEAKER) (test code = 752) 29.1 GM/DL 32.3-36.5 L RED CELL DISTRIBUTION WIDTH (BEAKER) (test code = 412) 15.4 % 11.6-14.4 H PLATELET COUNT (BEAKER) (test code = 756) 700 K/CU MM 150-450 H MEAN PLATELET VOLUME (BEAKER) (test code = 754) 9.1 fL 9.4-12 .4 L NUCLEATED RED BLOOD CELLS (BEAKER) (test code = 413) 0 /100 WBC 0 -0 NEUTROPHILS RELATIVE PERCENT (BEAKER) (test code = 429) 56 % LYMPHOCYTES RELATIVE PERCENT (BEAKER) (test code = 430) 34 % MONOCYTES RELATIVE PERCENT (BEAKER) (test code = 431) 7 % EOSINOPHILS RELATIVE PERCENT (BEAKER) (test code = 432) 3 % BASOPHILS RELATIVE PERCENT (BEAKER) (test code = 437) 0 % NEUTROPHILS ABSOLUTE COUNT (BEAKER) (test code = 670) 6.78 K/ L 1.78-5.38 H LYMPHOCYTES ABSOLUTE COUNT (BEAKER) (test code = 414) 4.09 K/ L 1.32-3.57 H MONOCYTES ABSOLUTE COUNT (BEAKER) (test code = 415) 0.79 K/ L 0. 30-0.82 EOSINOPHILS ABSOLUTE COUNT (BEAKER) (test code = 416) 0.36 K/ L 0.04-0.54 BASOPHILS ABSOLUTE COUNT (BEAKER) (test code = 417) 0.03 K/ L 0. 01-0.08 IMMATURE GRANULOCYTES-RELATIVE PERCENT (BEAKER) (test code = 2801) 1 % 0-1 [id number] 07:10:00* Test Item Value Reference Range Interpretation Comments PREALBUMIN (BEAKER) (test code = 586) 13 mg/dL 14-45 L [id number] 06:58:00* Test Item Value Reference Range Interpretation Comments MAGNESIUM (BEAKER) (test code = 627) 2.0 mg/dL 1.6-2.6 BASIC METABOLIC [id number] 06:58:00* Test Item Value Reference Range Interpretation Comments SODIUM (BEAKER) (test code = 381) 137 meq/L 136-145 POTASSIUM (BEAKER) (test code = 379) 4.1 meq/L 3.5-5.1 CHLORIDE (BEAKER) (test code = 382) 105 meq/L 98-107 CO2 (BEAKER) (test code = 355) 27 meq/L 22-29 BLOOD UREA NITROGEN (BEAKER) (test code = 354) 16 mg/dL 7-21 CREATININE (BEAKER) (test code = 358) 0.70 mg/dL 0.57-1.25 GLUCOSE RANDOM (BEAKER) (test code = 652) 162 mg/dL 70-105 H CALCIUM (BEAKER) (test code = 697) 8.7 mg/dL 8.4-10.2 EGFR (BEAKER) (test code = 1092) 128 mL/min/1.73 sq m ESTIMATED GFR IS NOT ACCURATE CREATININE CLEARANCE IN PREDICTING GLOMERULAR FILTRATION RATE. ESTIMATED GFR IS NOT APPLICABLE FOR DIALYSIS PATIENTS. [id number] 06:58:00* Test Item Value Reference Range Interpretation Comments ALBUMIN (BEAKER) (test code = 1145) 2.6 g/dL 3.5-5.0 L POCT-GLUCOSE [id number] 21:31:00* Test Item Value Reference Range Interpretation Comments POC-GLUCOSE METER (BEAKER) (test code = 1538) 167 mg/dL 70-110 H TESTED AT [address] [address] POCT-GLUCOSE [id number] 18:19:00* Test Item Value Reference Range Interpretation Comments POC-GLUCOSE METER (BEAKER) (test code = 1538) 210 mg/dL 70-110 H TESTED AT [address] [address] POCT-GLUCOSE [id number] 12:24:00* Test Item Value Reference Range Interpretation Comments POC-GLUCOSE METER (BEAKER) (test code = 1538) 124 mg/dL 70-110 H TESTED AT [address] [address] POCT-GLUCOSE [id number] 08:23:00* Test Item Value Reference Range Interpretation Comments POC-GLUCOSE METER (BEAKER) (test code = 1538) 179 mg/dL 70-110 H TESTED AT [facility] [address] [facility] [address] [id number] 04:50:00* Test Item Value Reference Range Interpretation Comments MAGNESIUM (BEAKER) (test code = 627) 2.0 mg/dL 1.6-2.6 BASIC METABOLIC [id number] 04:50:00* Test Item Value Reference Range Interpretation Comments SODIUM (BEAKER) (test code = 381) 134 meq/L 136-145 L POTASSIUM (BEAKER) (test code = 379) 3.9 meq/L 3.5-5.1 CHLORIDE (BEAKER) (test code = 382) 104 meq/L 98-107 CO2 (BEAKER) (test code = 355) 22 meq/L 22-29 BLOOD UREA NITROGEN (BEAKER) (test code = 354) 10 mg/dL 7-21 CREATININE (BEAKER) (test code = 358) 0.66 mg/dL 0.57-1.25 GLUCOSE RANDOM (BEAKER) (test code = 652) 230 mg/dL 70-105 H CALCIUM (BEAKER) (test code = 697) 8.0 mg/dL 8.4-10.2 L EGFR (BEAKER) (test code = 1092) 137 mL/min/1.73 sq m ESTIMATED GFR IS NOT ACCURATE CREATININE CLEARANCE IN PREDICTING GLOMERULAR FILTRATION RATE. ESTIMATED GFR IS NOT APPLICABLE FOR DIALYSIS PATIENTS. CBC W/PLT COUNT & AUTO [id number] 04:38:00* Test Item Value Reference Range Interpretation Comments WHITE BLOOD CELL COUNT (BEAKER) (test code = 775) 13.3 K/ L 3.5- 10.5 H RED BLOOD CELL COUNT (BEAKER) (test code = 761) 2.69 M/ L 4.63-6 .08 L HEMOGLOBIN (BEAKER) (test code = 410) 7.3 GM/DL 13.7-17.5 L HEMATOCRIT (BEAKER) (test code = 411) 24.9 % 40.1-51.0 L MEAN CORPUSCULAR VOLUME (BEAKER) (test code = 753) 92.6 fL 79. 0-92.2 H MEAN CORPUSCULAR HEMOGLOBIN (BEAKER) (test code = 751) 27.1 pg 25.7-32.2 MEAN CORPUSCULAR HEMOGLOBIN CONC (BEAKER) (test code = 752) 29.3 GM/DL 32.3-36.5 L RED CELL DISTRIBUTION WIDTH (BEAKER) (test code = 412) 15.3 % 11.6-14.4 H PLATELET COUNT (BEAKER) (test code = 756) 735 K/CU MM 150-450 H MEAN PLATELET VOLUME (BEAKER) (test code = 754) 8.1 fL 9.4-12 .4 L NUCLEATED RED BLOOD CELLS (BEAKER) (test code = 413) 0 /100 WBC 0 -0 NEUTROPHILS RELATIVE PERCENT (BEAKER) (test code = 429) 57 % LYMPHOCYTES RELATIVE PERCENT (BEAKER) (test code = 430) 32 % MONOCYTES RELATIVE PERCENT (BEAKER) (test code = 431) 8 % EOSINOPHILS RELATIVE PERCENT (BEAKER) (test code = 432) 2 % BASOPHILS RELATIVE PERCENT (BEAKER) (test code = 437) 0 % NEUTROPHILS ABSOLUTE COUNT (BEAKER) (test code = 670) 7.56 K/ L 1.78-5.38 H LYMPHOCYTES ABSOLUTE COUNT (BEAKER) (test code = 414) 4.19 K/ L 1.32-3.57 H MONOCYTES ABSOLUTE COUNT (BEAKER) (test code = 415) 1.02 K/ L 0. 30-0.82 H EOSINOPHILS ABSOLUTE COUNT (BEAKER) (test code = 416) 0.28 K/ L 0.04-0.54 BASOPHILS ABSOLUTE COUNT (BEAKER) (test code = 417) 0.05 K/ L 0. 01-0.08 IMMATURE GRANULOCYTES-RELATIVE PERCENT (BEAKER) (test code = 2801) 2 % 0-1 H ANAEROBIC [id number] 04:16:00* Test Item Value Reference Range Interpretation Comments CULTURE (BEAKER) (test code = 1095) No anaerobes isolated VANCOMYCIN LEVEL, [id number] 03:30:00* Test Item Value Reference Range Interpretation Comments VANCOMYCIN TROUGH (BEAKER) (test code = 522) 11.6 ug/mL 10.0-20.0 POCT-GLUCOSE [id number] 22:51:00* Test Item Value Reference Range Interpretation Comments POC-GLUCOSE METER (BEAKER) (test code = 1538) 312 mg/dL 70-110 H Notified VINAYAK ROJAS/TESTED AT [address] [address] POCT-GLUCOSE [id number] 17:22:00* Test Item Value Reference Range Interpretation Comments POC-GLUCOSE METER (BEAKER) (test code = 1538) 112 mg/dL 70-110 H TESTED AT [address] [address] POCT-GLUCOSE [id number] 12:43:00* Test Item Value Reference Range Interpretation Comments POC-GLUCOSE METER (BEAKER) (test code = 1538) 113 mg/dL 70-110 H TESTED AT [address] [address] POCT-GLUCOSE [id number] 08:20:00* Test Item Value Reference Range Interpretation Comments POC-GLUCOSE METER (BEAKER) (test code = 1538) 122 mg/dL 70-110 H TESTED AT [address] [address] BASIC METABOLIC [id number] 06:37:00* Test Item Value Reference Range Interpretation Comments SODIUM (BEAKER) (test code = 381) 138 meq/L 136-145 POTASSIUM (BEAKER) (test code = 379) 3.7 meq/L 3.5-5.1 CHLORIDE (BEAKER) (test code = 382) 105 meq/L 98-107 CO2 (BEAKER) (test code = 355) 27 meq/L 22-29 BLOOD UREA NITROGEN (BEAKER) (test code = 354) 7 mg/dL 7-21 CREATININE (BEAKER) (test code = 358) 0.51 mg/dL 0.57-1.25 L GLUCOSE RANDOM (BEAKER) (test code = 652) 95 mg/dL 70-105 CALCIUM (BEAKER) (test code = 697) 7.9 mg/dL 8.4-10.2 L EGFR (BEAKER) (test code = 1092) 184 mL/min/1.73 sq m ESTIMATED GFR IS NOT ACCURATE CREATININE CLEARANCE IN PREDICTING GLOMERULAR FILTRATION RATE. ESTIMATED GFR IS NOT APPLICABLE FOR DIALYSIS PATIENTS. [id number] 06:32:00* Test Item Value Reference Range Interpretation Comments MAGNESIUM (BEAKER) (test code = 627) 1.9 mg/dL 1.6-2.6 CBC W/PLT COUNT & AUTO [id number] 06:03:00* Test Item Value Reference Range Interpretation Comments WHITE BLOOD CELL COUNT (BEAKER) (test code = 775) 15.4 K/ L 3.5- 10.5 H RED BLOOD CELL COUNT (BEAKER) (test code = 761) 2.68 M/ L 4.63-6 .08 L HEMOGLOBIN (BEAKER) (test code = 410) 7.1 GM/DL 13.7-17.5 L HEMATOCRIT (BEAKER) (test code = 411) 24.3 % 40.1-51.0 L MEAN CORPUSCULAR VOLUME (BEAKER) (test code = 753) 90.7 fL 79. 0-92.2 MEAN CORPUSCULAR HEMOGLOBIN (BEAKER) (test code = 751) 26.5 pg 25.7-32.2 MEAN CORPUSCULAR HEMOGLOBIN CONC (BEAKER) (test code = 752) 29.2 GM/DL 32.3-36.5 L RED CELL DISTRIBUTION WIDTH (BEAKER) (test code = 412) 14.8 % 11.6-14.4 H PLATELET COUNT (BEAKER) (test code = 756) 738 K/CU MM 150-450 H MEAN PLATELET VOLUME (BEAKER) (test code = 754) 8.3 fL 9.4-12 .4 L NUCLEATED RED BLOOD CELLS (BEAKER) (test code = 413) 0 /100 WBC 0 -0 NEUTROPHILS RELATIVE PERCENT (BEAKER) (test code = 429) 63 % LYMPHOCYTES RELATIVE PERCENT (BEAKER) (test code = 430) 26 % MONOCYTES RELATIVE PERCENT (BEAKER) (test code = 431) 8 % EOSINOPHILS RELATIVE PERCENT (BEAKER) (test code = 432) 2 % BASOPHILS RELATIVE PERCENT (BEAKER) (test code = 437) 0 % NEUTROPHILS ABSOLUTE COUNT (BEAKER) (test code = 670) 9.70 K/ L 1.78-5.38 H LYMPHOCYTES ABSOLUTE COUNT (BEAKER) (test code = 414) 3.98 K/ L 1.32-3.57 H MONOCYTES ABSOLUTE COUNT (BEAKER) (test code = 415) 1.17 K/ L 0. 30-0.82 H EOSINOPHILS ABSOLUTE COUNT (BEAKER) (test code = 416) 0.26 K/ L 0.04-0.54 BASOPHILS ABSOLUTE COUNT (BEAKER) (test code = 417) 0.05 K/ L 0. 01-0.08 IMMATURE GRANULOCYTES-RELATIVE PERCENT (BEAKER) (test code = 2801) 2 % 0-1 H POCT-GLUCOSE [id number] 02:08:00* Test Item Value Reference Range Interpretation Comments POC-GLUCOSE METER (BEAKER) (test code = 1538) 193 mg/dL 70-110 H TESTED AT [address] [address] POCT-GLUCOSE [id number] 23:26:00* Test Item Value Reference Range Interpretation Comments POC-GLUCOSE METER (BEAKER) (test code = 1538) 450 mg/dL 70-110 HH Notified VINAYAK ROJAS/TESTED AT [address] [address] POCT-GLUCOSE [id number] 16:58:00* Test Item Value Reference Range Interpretation Comments POC-GLUCOSE METER (BEAKER) (test code = 1538) 258 mg/dL 70-110 H TESTED AT [address] [address] POCT-GLUCOSE [id number] 15:07:00* Test Item Value Reference Range Interpretation Comments POC-GLUCOSE METER (BEAKER) (test code = 1538) 184 mg/dL 70-110 H TESTED AT [address] [address] SURGICALLY OBTAINED CULTURE + GRAM [id number] 12:14:00* Test Item Value Reference Range Interpretation Comments CULTURE (BEAKER) (test code = 1095) See comment GRAM STAIN RESULT (BEAKER) (test code = 1123) 4+ WBCs GRAM STAIN RESULT (BEAKER) (test code = 33010) No organisms seen 1+ Skin floraPOCT-GLUCOSE [id number] 08:16:00* Test Item Value Reference Range Interpretation Comments POC-GLUCOSE METER (BEAKER) (test code = 1538) 201 mg/dL 70-110 H TESTED AT [address] [address] [id number] 05:37:00* Test Item Value Reference Range Interpretation Comments MAGNESIUM (BEAKER) (test code = 627) 2.0 mg/dL 1.6-2.6 BASIC METABOLIC [id number] 05:37:00* Test Item Value Reference Range Interpretation Comments SODIUM (BEAKER) (test code = 381) 137 meq/L 136-145 POTASSIUM (BEAKER) (test code = 379) 4.3 meq/L 3.5-5.1 CHLORIDE (BEAKER) (test code = 382) 102 meq/L 98-107 CO2 (BEAKER) (test code = 355) 28 meq/L 22-29 BLOOD UREA NITROGEN (BEAKER) (test code = 354) 12 mg/dL 7-21 CREATININE (BEAKER) (test code = 358) 0.63 mg/dL 0.57-1.25 GLUCOSE RANDOM (BEAKER) (test code = 652) 158 mg/dL 70-105 H CALCIUM (BEAKER) (test code = 697) 8.5 mg/dL 8.4-10.2 EGFR (BEAKER) (test code = 1092) 144 mL/min/1.73 sq m ESTIMATED GFR IS NOT ACCURATE CREATININE CLEARANCE IN PREDICTING GLOMERULAR FILTRATION RATE. ESTIMATED GFR IS NOT APPLICABLE FOR DIALYSIS PATIENTS. CBC W/PLT COUNT & AUTO [id number] 05:06:00* Test Item Value Reference Range Interpretation Comments WHITE BLOOD CELL COUNT (BEAKER) (test code = 775) 16.6 K/ L 3.5- 10.5 H RED BLOOD CELL COUNT (BEAKER) (test code = 761) 3.05 M/ L 4.63-6 .08 L HEMOGLOBIN (BEAKER) (test code = 410) 8.0 GM/DL 13.7-17.5 L HEMATOCRIT (BEAKER) (test code = 411) 27.6 % 40.1-51.0 L MEAN CORPUSCULAR VOLUME (BEAKER) (test code = 753) 90.5 fL 79. 0-92.2 MEAN CORPUSCULAR HEMOGLOBIN (BEAKER) (test code = 751) 26.2 pg 25.7-32.2 MEAN CORPUSCULAR HEMOGLOBIN CONC (BEAKER) (test code = 752) 29.0 GM/DL 32.3-36.5 L RED CELL DISTRIBUTION WIDTH (BEAKER) (test code = 412) 14.6 % 11.6-14.4 H PLATELET COUNT (BEAKER) (test code = 756) 831 K/CU MM 150-450 H MEAN PLATELET VOLUME (BEAKER) (test code = 754) 8.1 fL 9.4-12 .4 L NUCLEATED RED BLOOD CELLS (BEAKER) (test code = 413) 0 /100 WBC 0 -0 NEUTROPHILS RELATIVE PERCENT (BEAKER) (test code = 429) 61 % LYMPHOCYTES RELATIVE PERCENT (BEAKER) (test code = 430) 28 % MONOCYTES RELATIVE PERCENT (BEAKER) (test code = 431) 7 % EOSINOPHILS RELATIVE PERCENT (BEAKER) (test code = 432) 2 % BASOPHILS RELATIVE PERCENT (BEAKER) (test code = 437) 0 % NEUTROPHILS ABSOLUTE COUNT (BEAKER) (test code = 670) 10.04 K/ L 1.78-5.38 H LYMPHOCYTES ABSOLUTE COUNT (BEAKER) (test code = 414) 4.60 K/ L 1.32-3.57 H MONOCYTES ABSOLUTE COUNT (BEAKER) (test code = 415) 1.14 K/ L 0. 30-0.82 H EOSINOPHILS ABSOLUTE COUNT (BEAKER) (test code = 416) 0.31 K/ L 0.04-0.54 BASOPHILS ABSOLUTE COUNT (BEAKER) (test code = 417) 0.05 K/ L 0. 01-0.08 IMMATURE GRANULOCYTES-RELATIVE PERCENT (BEAKER) (test code = 2801) 3 % 0-1 H POCT-GLUCOSE [id number] 20:56:00* Test Item Value Reference Range Interpretation Comments POC-GLUCOSE METER (BEAKER) (test code = 1538) 324 mg/dL 70-110 H TESTED AT [place] [id number] POCT-GLUCOSE [id number] 17:32:00* Test Item Value Reference Range Interpretation Comments POC-GLUCOSE METER (BEAKER) (test code = 1538) 129 mg/dL 70-110 H TESTED AT [address] [address] BLOOD [id number] 13:20:00* Test Item Value Reference Range Interpretation Comments CULTURE (BEAKER) (test code = 1095) No growth in 5 days BLOOD [id number] 13:04:00* Test Item Value Reference Range Interpretation Comments CULTURE (BEAKER) (test code = 1095) No growth in 5 days POCT-GLUCOSE [id number] 11:46:00* Test Item Value Reference Range Interpretation Comments POC-GLUCOSE METER (BEAKER) (test code = 1538) 201 mg/dL 70-110 H TESTED AT [place] [id number] [facility] [address] POCT-GLUCOSE [id number] 08:10:00* Test Item Value Reference Range Interpretation Comments POC-GLUCOSE METER (BEAKER) (test code = 1538) 234 mg/dL 70-110 H TESTED AT [facility] [address] [facility] [address] CBC W/PLT COUNT & AUTO [id number] 06:47:00* Test Item Value Reference Range Interpretation Comments WHITE BLOOD CELL COUNT (BEAKER) (test code = 775) 12.0 K/ L 3.5- 10.5 H RED BLOOD CELL COUNT (BEAKER) (test code = 761) 2.85 M/ L 4.63-6 .08 L HEMOGLOBIN (BEAKER) (test code = 410) 7.7 GM/DL 13.7-17.5 L HEMATOCRIT (BEAKER) (test code = 411) 26.2 % 40.1-51.0 L MEAN CORPUSCULAR VOLUME (BEAKER) (test code = 753) 91.9 fL 79. 0-92.2 MEAN CORPUSCULAR HEMOGLOBIN (BEAKER) (test code = 751) 27.0 pg 25.7-32.2 MEAN CORPUSCULAR HEMOGLOBIN CONC (BEAKER) (test code = 752) 29.4 GM/DL 32.3-36.5 L RED CELL DISTRIBUTION WIDTH (BEAKER) (test code = 412) 14.6 % 11.6-14.4 H PLATELET COUNT (BEAKER) (test code = 756) 716 K/CU MM 150-450 H MEAN PLATELET VOLUME (BEAKER) (test code = 754) 8.6 fL 9.4-12 .4 L NUCLEATED RED BLOOD CELLS (BEAKER) (test code = 413) 0 /100 WBC 0 -0 NEUTROPHILS RELATIVE PERCENT (BEAKER) (test code = 429) 54 % LYMPHOCYTES RELATIVE PERCENT (BEAKER) (test code = 430) 32 % MONOCYTES RELATIVE PERCENT (BEAKER) (test code = 431) 9 % EOSINOPHILS RELATIVE PERCENT (BEAKER) (test code = 432) 2 % BASOPHILS RELATIVE PERCENT (BEAKER) (test code = 437) 0 % NEUTROPHILS ABSOLUTE COUNT (BEAKER) (test code = 670) 6.46 K/ L 1.78-5.38 H LYMPHOCYTES ABSOLUTE COUNT (BEAKER) (test code = 414) 3.84 K/ L 1.32-3.57 H MONOCYTES ABSOLUTE COUNT (BEAKER) (test code = 415) 1.05 K/ L 0. 30-0.82 H EOSINOPHILS ABSOLUTE COUNT (BEAKER) (test code = 416) 0.29 K/ L 0.04-0.54 BASOPHILS ABSOLUTE COUNT (BEAKER) (test code = 417) 0.05 K/ L 0. 01-0.08 IMMATURE GRANULOCYTES-RELATIVE PERCENT (BEAKER) (test code = 2801) 2 % 0-1 H [id number] 06:42:00* Test Item Value Reference Range Interpretation Comments MAGNESIUM (BEAKER) (test code = 627) 1.9 mg/dL 1.6-2.6 BASIC METABOLIC [id number] 06:42:00* Test Item Value Reference Range Interpretation Comments SODIUM (BEAKER) (test code = 381) 137 meq/L 136-145 POTASSIUM (BEAKER) (test code = 379) 4.4 meq/L 3.5-5.1 CHLORIDE (BEAKER) (test code = 382) 104 meq/L 98-107 CO2 (BEAKER) (test code = 355) 27 meq/L 22-29 BLOOD UREA NITROGEN (BEAKER) (test code = 354) 11 mg/dL 7-21 CREATININE (BEAKER) (test code = 358) 0.72 mg/dL 0.57-1.25 GLUCOSE RANDOM (BEAKER) (test code = 652) 290 mg/dL 70-105 H CALCIUM (BEAKER) (test code = 697) 8.2 mg/dL 8.4-10.2 L EGFR (BEAKER) (test code = 1092) 124 mL/min/1.73 sq m ESTIMATED GFR IS NOT ACCURATE CREATININE CLEARANCE IN PREDICTING GLOMERULAR FILTRATION RATE. ESTIMATED GFR IS NOT APPLICABLE FOR DIALYSIS PATIENTS. POCT-GLUCOSE [id number] 21:59:00* Test Item Value Reference Range Interpretation Comments POC-GLUCOSE METER (BEAKER) (test code = 1538) 325 mg/dL 70-110 H TESTED AT [facility] [address] [facility] [address] POCT-GLUCOSE [id number] 17:49:00* Test Item Value Reference Range Interpretation Comments POC-GLUCOSE METER (BEAKER) (test code = 1538) 97 mg/dL 70-110 TESTED AT [facility] [address] [facility] [address] VANCOMYCIN LEVEL, [id number] 16:10:00* Test Item Value Reference Range Interpretation Comments VANCOMYCIN TROUGH (BEAKER) (test code = 522) 6.1 ug/mL 10.0-20.0 L POCT-GLUCOSE [id number] 11:33:00* Test Item Value Reference Range Interpretation Comments POC-GLUCOSE METER (BEAKER) (test code = 1538) 165 mg/dL 70-110 H TESTED AT [facility] [address] [facility] [address] CBC W/PLT COUNT & AUTO [id number] 10:17:00* Test Item Value Reference Range Interpretation Comments WHITE BLOOD CELL COUNT (BEAKER) (test code = 775) 14.8 K/ L 3.5- 10.5 H RED BLOOD CELL COUNT (BEAKER) (test code = 761) 2.84 M/ L 4.63-6 .08 L HEMOGLOBIN (BEAKER) (test code = 410) 7.5 GM/DL 13.7-17.5 L HEMATOCRIT (BEAKER) (test code = 411) 25.2 % 40.1-51.0 L MEAN CORPUSCULAR VOLUME (BEAKER) (test code = 753) 88.7 fL 79. 0-92.2 MEAN CORPUSCULAR HEMOGLOBIN (BEAKER) (test code = 751) 26.4 pg 25.7-32.2 MEAN CORPUSCULAR HEMOGLOBIN CONC (BEAKER) (test code = 752) 29.8 GM/DL 32.3-36.5 L RED CELL DISTRIBUTION WIDTH (BEAKER) (test code = 412) 14.1 % 11.6-14.4 PLATELET COUNT (BEAKER) (test code = 756) 768 K/CU MM 150-450 H MEAN PLATELET VOLUME (BEAKER) (test code = 754) 8.2 fL 9.4-12 .4 L NUCLEATED RED BLOOD CELLS (BEAKER) (test code = 413) 0 /100 WBC 0 -0 (CELLAVISION MANUAL DIFF)2018-08-03 10:17:00* Test Item Value Reference Range Interpretation Comments NEUTROPHILS - REL (CELLAVISION)(BEAKER) (test code = 2816) 48 % LYMPHOCYTES - REL (CELLAVISION)(BEAKER) (test code = 2817) 32 % MONOCYTES - REL (CELLAVISION)(BEAKER) (test code = 2818) 3 % MYELOCYTES - REL (CELLAVISION)(BEAKER) (test code = 2822) 1 % 0-0 H BANDS - REL (CELLAVISION)(BEAKER) (test code = 2826) 16 % 0 -10 H NEUTROPHILS - ABS (CELLAVISION)(BEAKER) (test code = 2830) 7.10 K/ul 1.78-5.38 H LYMPHOCYTES - ABS (CELLAVISION)(BEAKER) (test code = 2831) 4.74 K/ul 1.32-3.57 H MONOCYTES - ABS (CELLAVISION)(BEAKER) (test code = 2832) 0.44 K/uL 0.30-0.82 MYELOCYTES-ABS (CELLAVISION)(BEAKER) (test code = 2837) 0.15 K/uL 0.00-0.00 H BANDS - ABS (CELLAVISION)(BEAKER) (test code = 2840) 2.37 K/uL 0 .00-0.80 H TOTAL COUNTED (BEAKER) (test code = 1351) 100 MANUAL NRBC PER 100 CELLS (BEAKER) (test code = 1353) 1 /100 WBC 0-0 H WBC MORPHOLOGY (BEAKER) (test code = 487) Normal PLT MORPHOLOGY (BEAKER) (test code = 486) Normal POLYCHROMATOPHILLIC RBCS(BEAKER) (test code = 478) 1+ few ANISOCYTOSIS (BEAKER) (test code = 961) 1+ few ARTIFACT (CELLAVISION)(BEAKER) (test code = 3432) Present PLATELET CONCENTRATION (CELLAVISION)(BEAKER) (test code = 3438) Inc reased Received comment: User comments: Slide comments: POCT-GLUCOSE [id number] 08:08:00* Test Item Value Reference Range Interpretation Comments POC-GLUCOSE METER (BEAKER) (test code = 1538) 129 mg/dL 70-110 H TESTED AT [facility] [address] [facility] [address] [id number] 04:00:00* Test Item Value Reference Range Interpretation Comments MAGNESIUM (BEAKER) (test code = 627) 2.0 mg/dL 1.6-2.6 BASIC METABOLIC [id number] 04:00:00* Test Item Value Reference Range Interpretation Comments SODIUM (BEAKER) (test code = 381) 138 meq/L 136-145 POTASSIUM (BEAKER) (test code = 379) 4.1 meq/L 3.5-5.1 CHLORIDE (BEAKER) (test code = 382) 102 meq/L 98-107 CO2 (BEAKER) (test code = 355) 33 meq/L 22-29 H BLOOD UREA NITROGEN (BEAKER) (test code = 354) 7 mg/dL 7-21 CREATININE (BEAKER) (test code = 358) 0.58 mg/dL 0.57-1.25 GLUCOSE RANDOM (BEAKER) (test code = 652) 113 mg/dL 70-105 H CALCIUM (BEAKER) (test code = 697) 8.5 mg/dL 8.4-10.2 EGFR (BEAKER) (test code = 1092) 159 mL/min/1.73 sq m ESTIMATED GFR IS NOT ACCURATE CREATININE CLEARANCE IN PREDICTING GLOMERULAR FILTRATION RATE. ESTIMATED GFR IS NOT APPLICABLE FOR DIALYSIS PATIENTS. POCT-GLUCOSE [id number] 22:22:00* Test Item Value Reference Range Interpretation Comments POC-GLUCOSE METER (BEAKER) (test code = 1538) 168 mg/dL 70-110 H TESTED AT [address] [address] RAD, CHEST, 1 VIEW, NON [id number] 21:47:00Reason for exam:->picc retracted Should this be [...] The regional osseous structures are unremarkable. Signed: Randall Championeport Verified Date/Time: 08/02/2018 21:47:41 Reading Location: [address] Consult Reading Room , CHEST, 1 VIEW, NON [id number] 19:50:00Reason for exam:->check picc placement Should this [...] performed for further evaluation if warranted. Signed: Jose Armando Stafford [facility] Verified Date/Time: 08/02/2018 19:50:51 Reading Location: [address] Reading Room -GLUCOSE [id number] 18:24:00* Test Item Value Reference Range Interpretation Comments POC-GLUCOSE METER (BEAKER) (test code = 1538) 246 mg/dL 70-110 H TESTED AT [facility] [address] [facility] [address] POCT-GLUCOSE [id number] 13:32:00* Test Item Value Reference Range Interpretation Comments POC-GLUCOSE METER (BEAKER) (test code = 1538) 242 mg/dL 70-110 H TESTED AT [facility] [address] [facility] [address] POCT-GLUCOSE [id number] 10:39:00* Test Item Value Reference Range Interpretation Comments POC-GLUCOSE METER (BEAKER) (test code = 1538) 234 mg/dL 70-110 H TESTED AT [facility] [address] [facility] [address] WOUND CULTURE + GRAM [id number] 05:25:00* Test Item Value Reference Range Interpretation Comments CULTURE (BEAKER) (test code = 1095) A 1+ Beta-hemolytic streptococcus group B, by serological grouping GRAM STAIN RESULT (BEAKER) (test code = 1123) 2+ White blood cells seen GRAM STAIN RESULT (BEAKER) (test code = 918873) 3+ gram negative ro ds 3+ Skin floraPOCT-GLUCOSE [id number] 21:53:00* Test Item Value Reference Range Interpretation Comments POC-GLUCOSE METER (BEAKER) (test code = 1538) 238 mg/dL 70-110 H TESTED AT [place] [id number] [facility] [address] POCT-GLUCOSE [id number] 17:42:00* Test Item Value Reference Range Interpretation Comments POC-GLUCOSE METER (BEAKER) (test code = 1538) 229 mg/dL 70-110 H TESTED AT [address] [address] POCT-GLUCOSE [id number] 12:39:00* Test Item Value Reference Range Interpretation Comments POC-GLUCOSE METER (BEAKER) (test code = 1538) 386 mg/dL 70-110 H TESTED AT [address] [address] [id number] 10:12:00* Test Item Value Reference Range Interpretation Comments MAGNESIUM (BEAKER) (test code = 627) 2.1 mg/dL 1.6-2.6 Specimen slightly hemolyzed BASIC METABOLIC [id number] 10:12:00* Test Item Value Reference Range Interpretation Comments SODIUM (BEAKER) (test code = 381) 134 meq/L 136-145 L POTASSIUM (BEAKER) (test code = 379) 4.4 meq/L 3.5-5.1 Specimen slightly hemolyzed CHLORIDE (BEAKER) (test code = 382) 100 meq/L 98-107 CO2 (BEAKER) (test code = 355) 26 meq/L 22-29 BLOOD UREA NITROGEN (BEAKER) (test code = 354) 6 mg/dL 7-21 L CREATININE (BEAKER) (test code = 358) 0.64 mg/dL 0.57-1.25 Specimen slightly hemolyzed GLUCOSE RANDOM (BEAKER) (test code = 652) 218 mg/dL 70-105 H CALCIUM (BEAKER) (test code = 697) 8.3 mg/dL 8.4-10.2 L EGFR (BEAKER) (test code = 1092) 142 mL/min/1.73 sq m ESTIMATED GFR IS NOT ACCURATE CREATININE CLEARANCE IN PREDICTING GLOMERULAR FILTRATION RATE. ESTIMATED GFR IS NOT APPLICABLE FOR DIALYSIS PATIENTS. CBC W/PLT COUNT & AUTO [id number] 10:02:00* Test Item Value Reference Range Interpretation Comments WHITE BLOOD CELL COUNT (BEAKER) (test code = 775) 11.6 K/ L 3.5- 10.5 H RED BLOOD CELL COUNT (BEAKER) (test code = 761) 3.15 M/ L 4.63-6 .08 L HEMOGLOBIN (BEAKER) (test code = 410) 8.4 GM/DL 13.7-17.5 L HEMATOCRIT (BEAKER) (test code = 411) 28.0 % 40.1-51.0 L MEAN CORPUSCULAR VOLUME (BEAKER) (test code = 753) 88.9 fL 79. 0-92.2 MEAN CORPUSCULAR HEMOGLOBIN (BEAKER) (test code = 751) 26.7 pg 25.7-32.2 MEAN CORPUSCULAR HEMOGLOBIN CONC (BEAKER) (test code = 752) 30.0 GM/DL 32.3-36.5 L RED CELL DISTRIBUTION WIDTH (BEAKER) (test code = 412) 14.1 % 11.6-14.4 PLATELET COUNT (BEAKER) (test code = 756) 822 K/CU MM 150-450 H MEAN PLATELET VOLUME (BEAKER) (test code = 754) 8.6 fL 9.4-12 .4 L NUCLEATED RED BLOOD CELLS (BEAKER) (test code = 413) 0 /100 WBC 0 -0 NEUTROPHILS RELATIVE PERCENT (BEAKER) (test code = 429) 55 % LYMPHOCYTES RELATIVE PERCENT (BEAKER) (test code = 430) 32 % MONOCYTES RELATIVE PERCENT (BEAKER) (test code = 431) 11 % EOSINOPHILS RELATIVE PERCENT (BEAKER) (test code = 432) 1 % BASOPHILS RELATIVE PERCENT (BEAKER) (test code = 437) 0 % NEUTROPHILS ABSOLUTE COUNT (BEAKER) (test code = 670) 6.32 K/ L 1.78-5.38 H LYMPHOCYTES ABSOLUTE COUNT (BEAKER) (test code = 414) 3.68 K/ L 1.32-3.57 H MONOCYTES ABSOLUTE COUNT (BEAKER) (test code = 415) 1.28 K/ L 0. 30-0.82 H EOSINOPHILS ABSOLUTE COUNT (BEAKER) (test code = 416) 0.06 K/ L 0.04-0.54 BASOPHILS ABSOLUTE COUNT (BEAKER) (test code = 417) 0.05 K/ L 0. 01-0.08 IMMATURE GRANULOCYTES-RELATIVE PERCENT (BEAKER) (test code = 2801) 2 % 0-1 H POCT-GLUCOSE [id number] 09:35:00* Test Item Value Reference Range Interpretation Comments POC-GLUCOSE METER (BEAKER) (test code = 1538) 233 mg/dL 70-110 H TESTED AT [address] [address] POCT-GLUCOSE [id number] 22:48:00* Test Item Value Reference Range Interpretation Comments POC-GLUCOSE METER (BEAKER) (test code = 1538) 453 mg/dL 70-110 HH TESTED AT [address] [address] POCT-GLUCOSE [id number] 17:06:00* Test Item Value Reference Range Interpretation Comments POC-GLUCOSE METER (LENORE) (test code = 1538) 319 mg/dL 70-110 H Will Repeat Test/TESTED AT [address] [address] [address], PELVIS, W [id number] 09:22:00Please include entire left gluteusFINAL REPORT TECHNIQUE: [...] possibly due to a neurogenic bladder. Signed: Mauricio Barajas MDReport Verified Date /Time: 07/31/2018 09:22:27 Reading Location: [address] Body Reading Room , ABDOMEN, 2 [id number] 09:17:00Do A/P and lateral abdomen, center at [...] in the abdomen or pelvis. Signed: Crystal Sher MDReport Verifi ed Date/Time: 07/31/2018 09:17:18 Reading Location: [address] 09:1 7 AM POCT-GLUCOSE [id number] 07:57:00* Test Item Value Reference Range Interpretation Comments POC-GLUCOSE METER (BEAKER) (test code = 1538) 343 mg/dL 70-110 H Will Repeat Test/TESTED AT [address] [address] CBC (HEMOGRAM ONLY)2018-07-31 05:59:00* Test Item Value Reference Range Interpretation Comments WHITE BLOOD CELL COUNT (BEAKER) (test code = 775) 11.2 K/ L 3.5- 10.5 H RED BLOOD CELL COUNT (BEAKER) (test code = 761) 3.00 M/ L 4.63-6 .08 L HEMOGLOBIN (BEAKER) (test code = 410) 7.9 GM/DL 13.7-17.5 L HEMATOCRIT (BEAKER) (test code = 411) 26.6 % 40.1-51.0 L MEAN CORPUSCULAR VOLUME (BEAKER) (test code = 753) 88.7 fL 79. 0-92.2 MEAN CORPUSCULAR HEMOGLOBIN (BEAKER) (test code = 751) 26.3 pg 25.7-32.2 MEAN CORPUSCULAR HEMOGLOBIN CONC (BEAKER) (test code = 752) 29.7 GM/DL 32.3-36.5 L RED CELL DISTRIBUTION WIDTH (BEAKER) (test code = 412) 13.9 % 11.6-14.4 PLATELET COUNT (BEAKER) (test code = 756) 701 K/CU MM 150-450 H MEAN PLATELET VOLUME (BEAKER) (test code = 754) 8.9 fL 9.4-12 .4 L NUCLEATED RED BLOOD CELLS (BEAKER) (test code = 413) 0 /100 WBC 0 -0 HEPATIC FUNCTION [id number] 05:42:00* Test Item Value Reference Range Interpretation Comments TOTAL PROTEIN (BEAKER) (test code = 770) 7.0 gm/dL 6.0-8.3 ALBUMIN (BEAKER) (test code = 1145) 2.3 g/dL 3.5-5.0 L BILIRUBIN TOTAL (BEAKER) (test code = 377) 0.5 mg/dL 0.2-1.2 BILIRUBIN DIRECT (BEAKER) (test code = 706) 0.3 mg/dL 0.1-0.5 ALKALINE PHOSPHATASE (BEAKER) (test code = 346) 295 U/L 40-150 H AST (SGOT) (BEAKER) (test code = 353) 32 U/L 5-34 ALT (SGPT) (BEAKER) (test code = 347) 36 U/L 6-55 BASIC METABOLIC [id number] 05:42:00* Test Item Value Reference Range Interpretation Comments SODIUM (BEAKER) (test code = 381) 133 meq/L 136-145 L POTASSIUM (BEAKER) (test code = 379) 3.8 meq/L 3.5-5.1 CHLORIDE (BEAKER) (test code = 382) 102 meq/L 98-107 CO2 (BEAKER) (test code = 355) 26 meq/L 22-29 BLOOD UREA NITROGEN (BEAKER) (test code = 354) 10 mg/dL 7-21 CREATININE (BEAKER) (test code = 358) 0.70 mg/dL 0.57-1.25 GLUCOSE RANDOM (BEAKER) (test code = 652) 352 mg/dL 70-105 H CALCIUM (BEAKER) (test code = 697) 8.4 mg/dL 8.4-10.2 EGFR (BEAKER) (test code = 1092) 128 mL/min/1.73 sq m ESTIMATED GFR IS NOT ACCURATE CREATININE CLEARANCE IN PREDICTING GLOMERULAR FILTRATION RATE. ESTIMATED GFR IS NOT APPLICABLE FOR DIALYSIS PATIENTS. C-REACTIVE [id number] 05:42:00* Test Item Value Reference Range Interpretation Comments C-REACTIVE PROTEIN (BEAKER) (test code = 676) 29.44 mg/dL 0.00-0.5 0 H LACTIC ACID, VENOUS, WHOLE [id number] 05:18:00* Test Item Value Reference Range Interpretation Comments LACTATE BLOOD VENOUS (2) (BEAKER) (test code = 2872) 1.5 mmol/L 0 .5-2.2 POCT-GLUCOSE [id number] 21:57:00* Test Item Value Reference Range Interpretation Comments POC-GLUCOSE METER (BEAKER) (test code = 1538) 357 mg/dL 70-110 H TESTED AT [place] [id number] [facility] [address] POCT-GLUCOSE [id number] 17:31:00* Test Item Value Reference Range Interpretation Comments POC-GLUCOSE METER (BEAKER) (test code = 1538) 283 mg/dL 70-110 H TESTED AT [place] [id number] [facility] [address] POCT-GLUCOSE [id number] 12:12:00* Test Item Value Reference Range Interpretation Comments POC-GLUCOSE METER (BEAKER) (test code = 1538) 326 mg/dL 70-110 H Will Repeat Test/TESTED AT [address] [address] [id number] 11:21:00* Test Item Value Reference Range Interpretation Comments PROCALCITONIN (BEAKER) (test code = 3036) 5.36 ng/mL <0.05 H SEPSIS RISK (ng/mL)Low: 0.05-0.50Intermediate: 0.51-2.00High: > =2.01LACTIC ACID, VENOUS, WHOLE [id number] 10:34:00* Test Item Value Reference Range Interpretation Comments LACTATE BLOOD VENOUS (2) (BEAKER) (test code = 2872) 1.1 mmol/L 0 .5-2.2 IRON, TIBC, % SAT. (WITHOUT FERRITIN)2018-07-30 10:25:00* Test Item Value Reference Range Interpretation Comments IRON (BEAKER) (test code = 547) 22 ug/dL 40-160 L TOTAL IRON BINDING CAPACITY (BEAKER) (test code = 769) 163 ug/dL 250-450 L IRON % SATURATION (2) (BEAKER) (test code = 2590) 13 % 20-5 5 L CBC W/PLT COUNT & AUTO [id number] 10:07:00* Test Item Value Reference Range Interpretation Comments WHITE BLOOD CELL COUNT (BEAKER) (test code = 775) 11.0 K/ L 3.5- 10.5 H RED BLOOD CELL COUNT (BEAKER) (test code = 761) 3.00 M/ L 4.63-6 .08 L HEMOGLOBIN (BEAKER) (test code = 410) 8.2 GM/DL 13.7-17.5 L HEMATOCRIT (BEAKER) (test code = 411) 27.5 % 40.1-51.0 L MEAN CORPUSCULAR VOLUME (BEAKER) (test code = 753) 91.7 fL 79. 0-92.2 MEAN CORPUSCULAR HEMOGLOBIN (BEAKER) (test code = 751) 27.3 pg 25.7-32.2 MEAN CORPUSCULAR HEMOGLOBIN CONC (BEAKER) (test code = 752) 29.8 GM/DL 32.3-36.5 L RED CELL DISTRIBUTION WIDTH (BEAKER) (test code = 412) 14.0 % 11.6-14.4 PLATELET COUNT (BEAKER) (test code = 756) 599 K/CU MM 150-450 H MEAN PLATELET VOLUME (BEAKER) (test code = 754) 9.0 fL 9.4-12 .4 L NUCLEATED RED BLOOD CELLS (BEAKER) (test code = 413) 0 /100 WBC 0 -0 (CELLAVISION MANUAL DIFF)2018-07-30 10:07:00* Test Item Value Reference Range Interpretation Comments NEUTROPHILS - REL (CELLAVISION)(BEAKER) (test code = 2816) 31 % LYMPHOCYTES - REL (CELLAVISION)(BEAKER) (test code = 2817) 29 % MONOCYTES - REL (CELLAVISION)(BEAKER) (test code = 2818) 12 % BASOPHILS - REL (CELLAVISION)(BEAKER) (test code = 2820) 1 % BANDS - REL (CELLAVISION)(BEAKER) (test code = 2826) 26 % 0 -10 H ATYPICAL LYMPHOCYTES - REL (CELLAVISION)(BEAKER) (test code = 2829) 1 % 0-0 H NEUTROPHILS - ABS (CELLAVISION)(BEAKER) (test code = 2830) 3.41 K/ul 1.78-5.38 LYMPHOCYTES - ABS (CELLAVISION)(BEAKER) (test code = 2831) 3.19 K/ul 1.32-3.57 MONOCYTES - ABS (CELLAVISION)(BEAKER) (test code = 2832) 1.32 K/uL 0.30-0.82 H BASOPHILS - ABS (CELLAVISION)(BEAKER) (test code = 2835) 0.11 K/uL 0.01-0.08 H BANDS - ABS (CELLAVISION)(BEAKER) (test code = 2840) 2.86 K/uL 0 .00-0.80 H ATYPICAL LYMPHOCYTES - ABS (CELLAVISION)(BEAKER) (test code = 2858) 0.11 K/uL 0.00-0.00 H TOTAL COUNTED (BEAKER) (test code = 1351) 100 WBC MORPHOLOGY (BEAKER) (test code = 487) Normal PLT MORPHOLOGY (BEAKER) (test code = 486) Normal POIKILOCYTES (BEAKER) (test code = 966) 1+ few CHELO CELLS (BEAKER) (test code = 474) 2+ moderate ARTIFACT (CELLAVISION)(BEAKER) (test code = 3432) Present PLATELET CONCENTRATION (CELLAVISION)(BEAKER) (test code = 3438) Inc reased Received comment: User comments: Slide comments: HEMOGLOBIN [id number] 09:58:00* Test Item Value Reference Range Interpretation Comments HEMOGLOBIN A1C (BEAKER) (test code = 368) 12.8 % 4.3-6.1 H BASIC METABOLIC [id number] 08:48:00* Test Item Value Reference Range Interpretation Comments SODIUM (BEAKER) (test code = 381) 133 meq/L 136-145 L POTASSIUM (BEAKER) (test code = 379) 4.2 meq/L 3.5-5.1 CHLORIDE (BEAKER) (test code = 382) 102 meq/L 98-107 CO2 (BEAKER) (test code = 355) 19 meq/L 22-29 L BLOOD UREA NITROGEN (BEAKER) (test code = 354) 11 mg/dL 7-21 CREATININE (BEAKER) (test code = 358) 0.71 mg/dL 0.57-1.25 GLUCOSE RANDOM (BEAKER) (test code = 652) 281 mg/dL 70-105 H CALCIUM (BEAKER) (test code = 697) 8.8 mg/dL 8.4-10.2 EGFR (BEAKER) (test code = 1092) 126 mL/min/1.73 sq m ESTIMATED GFR IS NOT ACCURATE CREATININE CLEARANCE IN PREDICTING GLOMERULAR FILTRATION RATE. ESTIMATED GFR IS NOT APPLICABLE FOR DIALYSIS PATIENTS. POCT-GLUCOSE [id number] 06:27:00* Test Item Value Reference Range Interpretation Comments POC-GLUCOSE METER (BEAKER) (test code = 1538) 305 mg/dL 70-110 H TESTED AT [address] [address] RETICULOCYTE [id number] 06:12:00* Test Item Value Reference Range Interpretation Comments RETICULOCYTE COUNT PCT (BEAKER) (test code = 575) 1.6 % 0.5- 1.8 [id number] 05:56:00* Test Item Value Reference Range Interpretation Comments FERRITIN (BEAKER) (test code = 361) 226 ng/mL 5-275 POCT-GLUCOSE [id number] 04:08:00* Test Item Value Reference Range Interpretation Comments POC-GLUCOSE METER (BEAKER) (test code = 1538) 381 mg/dL 70-110 H TESTED AT [place] [id number] [facility] [address] URINALYSIS W/ [id number] 03:00:00* Test Item Value Reference Range Interpretation Comments COLOR (BEAKER) (test code = 470) Yellow CLARITY (BEAKER) (test code = 469) Clear SPECIFIC GRAVITY UA (BEAKER) (test code = 468) 1.033 1.001-1 .035 PH UA (BEAKER) (test code = 467) 6.0 5.0-8.0 PROTEIN UA (BEAKER) (test code = 464) Negative Negative GLUCOSE UA (BEAKER) (test code = 365) >1000 mg/dL Negative A KETONES UA (BEAKER) (test code = 371) Negative Negative BILIRUBIN UA (BEAKER) (test code = 462) Negative Negative BLOOD UA (BEAKER) (test code = 461) Small Negative A NITRITE UA (BEAKER) (test code = 465) Negative Negative LEUKOCYTE ESTERASE UA (BEAKER) (test code = 466) Negative Negat marianne UROBILINOGEN UA (BEAKER) (test code = 463) 2.0 mg/dL 0.2-1.0 H RBC UA (BEAKER) (test code = 519) 3 /HPF WBC UA (BEAKER) (test code = 520) 1 /HPF SQUAMOUS EPITHELIAL (BEAKER) (test code = 516) < /HPF AMORPHOUS CRYSTALS (BEAKER) (test code = 1584) Rare SOURCE(BEAKER) (test code = 2795) Urine, Straight Catheter URINALYSIS W/ REFLEX URINE [id number] 02:29:00* Test Item Value Reference Range Interpretation Comments COLOR (BEAKER) (test code = 470) Yellow CLARITY (BEAKER) (test code = 469) Clear SPECIFIC GRAVITY UA (BEAKER) (test code = 468) 1.035 1.001-1 .035 PH UA (BEAKER) (test code = 467) 6.0 5.0-8.0 PROTEIN UA (BEAKER) (test code = 464) 10 mg/dL Negative A GLUCOSE UA (BEAKER) (test code = 365) >1000 mg/dL Negative A KETONES UA (BEAKER) (test code = 371) Negative Negative BILIRUBIN UA (BEAKER) (test code = 462) Negative Negative BLOOD UA (BEAKER) (test code = 461) Small Negative A NITRITE UA (BEAKER) (test code = 465) Negative Negative LEUKOCYTE ESTERASE UA (BEAKER) (test code = 466) Negative Negat marianne UROBILINOGEN UA (BEAKER) (test code = 463) 3.0 mg/dL 0.2-1.0 H RBC UA (BEAKER) (test code = 519) 8 /HPF WBC UA (BEAKER) (test code = 520) 2 /HPF SQUAMOUS EPITHELIAL (BEAKER) (test code = 516) 2 /HPF SOURCE(BEAKER) (test code = 2795) KETONE, [id number] 02:26:00* Test Item Value Reference Range Interpretation Comments KETONES, BLOOD (BEAKER) (test code = 1103) 0.0 mmol/L <0.4 BLOOD GAS, [id number] 01:16:00* Test Item Value Reference Range Interpretation Comments PH VENOUS (BEAKER) (test code = 701) 7.51 7.32-7.42 H PCO2 VENOUS (BEAKER) (test code = 755) 37 mmHg 41-51 L PO2 VENOUS (BEAKER) (test code = 702) 69 mmHg 25-40 H O2 SATURATION VENOUS (BEAKER) (test code = 703) 95.4 % 40.0-7 0.0 H HCO3 VENOUS (BEAKER) (test code = 705) 29 mmol/L 21-29 BASE EXCESS VENOUS (BEAKER) (test code = 704) 5.2 mmol/L -2.0-3.0 H PATIENT TEMPERATURE (BEAKER) (test code = 1818) 37.0 C FIO2 (BEAKER) (test code = 1819) 21.0 % (CELLAVISION MANUAL DIFF)2018-07-30 00:27:00* Test Item Value Reference Range Interpretation Comments NEUTROPHILS - REL (CELLAVISION)(BEAKER) (test code = 2816) 58 % LYMPHOCYTES - REL (CELLAVISION)(BEAKER) (test code = 2817) 23 % MONOCYTES - REL (CELLAVISION)(BEAKER) (test code = 2818) 9 % BANDS - REL (CELLAVISION)(BEAKER) (test code = 2826) 10 % 0 -10 NEUTROPHILS - ABS (CELLAVISION)(BEAKER) (test code = 2830) 5.34 K/ul 1.78-5.38 LYMPHOCYTES - ABS (CELLAVISION)(BEAKER) (test code = 2831) 2.12 K/ul 1.32-3.57 MONOCYTES - ABS (CELLAVISION)(BEAKER) (test code = 2832) 0.83 K/uL 0.30-0.82 H BANDS - ABS (CELLAVISION)(BEAKER) (test code = 2840) 0.92 K/uL 0 .00-0.80 H TOTAL COUNTED (BEAKER) (test code = 1351) 100 SMUDGE CELLS (BEAKER) (test code = 1371) Present GIANT PLATELETS (BEAKER) (test code = 313) Present OVALOCYTES (BEAKER) (test code = 477) 1+ few TEAR DROP CELLS (BEAKER) (test code = 481) 1+ few PLATELET CONCENTRATION (CELLAVISION)(BEAKER) (test code = 3438) Inc reased Received comment: User comments: Slide comments: BASIC METABOLIC [id number] 00:27:00* Test Item Value Reference Range Interpretation Comments SODIUM (BEAKER) (test code = 381) 129 meq/L 136-145 L POTASSIUM (BEAKER) (test code = 379) 4.2 meq/L 3.5-5.1 CHLORIDE (BEAKER) (test code = 382) 93 meq/L 98-107 L CO2 (BEAKER) (test code = 355) 27 meq/L 22-29 BLOOD UREA NITROGEN (BEAKER) (test code = 354) 13 mg/dL 7-21 CREATININE (BEAKER) (test code = 358) 1.11 mg/dL 0.57-1.25 GLUCOSE RANDOM (BEAKER) (test code = 652) 578 mg/dL 70-105 HH CALCIUM (BEAKER) (test code = 697) 8.6 mg/dL 8.4-10.2 EGFR (BEAKER) (test code = 1092) 75 mL/min/1.73 sq m ESTIMATED GFR IS NOT ACCURATE CREATININE CLEARANCE IN PREDICTING GLOMERULAR FILTRATION RATE. ESTIMATED GFR IS NOT APPLICABLE FOR DIALYSIS PATIENTS. CBC W/PLT COUNT & AUTO [id number] 00:26:00* Test Item Value Reference Range Interpretation Comments WHITE BLOOD CELL COUNT (BEAKER) (test code = 775) 9.2 K/ L 3.5- 10.5 RED BLOOD CELL COUNT (BEAKER) (test code = 761) 3.13 M/ L 4.63-6 .08 L HEMOGLOBIN (BEAKER) (test code = 410) 8.3 GM/DL 13.7-17.5 L HEMATOCRIT (BEAKER) (test code = 411) 27.4 % 40.1-51.0 L MEAN CORPUSCULAR VOLUME (BEAKER) (test code = 753) 87.5 fL 79. 0-92.2 MEAN CORPUSCULAR HEMOGLOBIN (BEAKER) (test code = 751) 26.5 pg 25.7-32.2 MEAN CORPUSCULAR HEMOGLOBIN CONC (BEAKER) (test code = 752) 30.3 GM/DL 32.3-36.5 L RED CELL DISTRIBUTION WIDTH (BEAKER) (test code = 412) 13.8 % 11.6-14.4 PLATELET COUNT (BEAKER) (test code = 756) 637 K/CU MM 150-450 H MEAN PLATELET VOLUME (BEAKER) (test code = 754) 8.8 fL 9.4-12 .4 L NUCLEATED RED BLOOD CELLS (BEAKER) (test code = 413) 0 /100 WBC 0 -0 LACTIC ACID, VENOUS, WHOLE [id number] 00:07:00* Test Item Value Reference Range Interpretation Comments LACTATE BLOOD VENOUS (2) (BEAKER) (test code = 2872) 3.0 mmol/L 0 .5-2.2 H POCT-GLUCOSE [id number] 21:29:00* Test Item Value Reference Range Interpretation Comments POC-GLUCOSE METER (BEAKER) (test code = 1538) 496 mg/dL 70-110 HH TESTED AT [facility] [address] [facility] [address] AFB Culture and [id number] 13:01:00Specimen/Source: Bone/left hipCollected: 01/02/2018 08:45 Status: Final Last Updated: 03/01/2018 13:01 QNT-Poozw-Jtspbqbajapm (Final) (Final) 01/04/18 No acid fast bacill seen on direct smear Culture Result (Final) (Final) 03/01/18 No growth of AFB at six (6) weeks AFB Culture and [id number] 13:01:00Specimen/Source: Hip/lft superficialCollected: 01/02/2018 08:30 Status: Final Last Updated: 03/01/2018 13:01 UZR-Wakst-Lcrcmcwowhiq (Final) (Final) 01/04/18 No acid fast bacill seen on direct smear Culture Result (Final) (Final) 03/01/18 No growth of AFB at six (6) weeks AFB Culture and [id number] 13:00:00Specimen/Source: Bone/left footCollected: 01/02/2018 09:20 Status: Final Last Updated: 03/01/2018 13:00 VLE-Xtfoj-Knoaalvevllm (Final) (Final) 01/04/18 No acid fast bacill seen on direct smear Culture Result (Final) (Final) 03/01/18 No growth of AFB at six (6) weeks AFB Culture and [id number] 13:00:00Specimen/Source: Hip/left deepCollected: 01/02/2018 08:45 Status: Final Last Updated: 03/01/2018 13:00 HRW-Saxnf-Yyapmrsxzdnu (Final) (Final) 01/04/18 No acid fast bacill seen on direct smear Culture Result (Final) (Final) 03/01/18 No growth of AFB at six (6) weeks AFB Culture and [id number] 12:59:00Specimen/Source: Foot/LeftCollected: 01/02/2018 09:20 Status: Final Last Updated: 03/01/2018 12:59 FAL-Cxmpm-Ylmtciwvkwxv (Final) (Final) 01/04/18 No acid fast bacill seen on direct smear Culture Result (Final) (Final) 03/01/18 No growth of AFB at six (6) weeks AFB Culture and [id number] 12:58:00 Specimen/Source: Wound/RT. ISCHIUMCollected: 01/04/2018 12:50 Status: Final Last Updated: 03/01/2018 12:58 SOZ-Jvrls-Oanfviyubdlu (Final) (Final) 01/05/18 No acid fast bacill [...] isolated at 6 weeks Fungus Culture with [id number] 11:00:00Specimen/Source: Hip/left deepCollected: 01/02/2018 08:45 Status: Final Last Updated: 02/14/2018 11:00 Fungal Smear Result (Final) (Final) 01/02/18 No yeast or hyphae seen Culture Result (Final) (Final) 5/28/18 No fungus isolated at 6 weeks Fungus Culture with [id number] 11:00:00 Specimen/Source: Bone/left hipCollected: 01/02/2018 08:45 Status: Final [place] t Updated: 02/14/2018 11:00 Fungal Smear Result (Final) (Final) 01/02 No yeast or hyphae seen Culture Result (Final) (Final) 02/14/18 No fungu s isolated at 6 weeks Fungus Culture with [id number] 10:59:00 Specimen/Source: Foot/LeftCollected: 01/02/2018 09:20 Status: Final Last Up dated: 02/14/2018 10:59 Fungal Smear Result (Final) (Final) 01/02/18 No yeast or hyphae seen Culture Result (Final) (Final) 02/14/18 No fungus is olated at 6 weeks Fungus Culture with [id number] 10:59:00Specimen/Source: Hip/lft superficialCollected: 01/02/2018 08:30 Status: Final Last Updated: 02/14/2018 10:59 Fungal Smear Result (Final) (Final) 01/02/18 No yeast or hyphae seen Culture Result (Final) (Final) 02/14/18 No fungus isolated at 6 weeks Fungus Culture with [id number] 10:58:00 Specimen/Source: Bone/left footCollected: 01/02/2018 09:20 Status: Final [place] st Updated: 02/14/2018 10:58 Fungal Smear Result (Final) (Final) 12/19 02/04 No yeast or hyphae seen Culture Result (Final) (Final) 02/14/18 No jeffery us isolated at 6 weeks US Upper Ext Venous Duplex [id number] 12:50:17 Patient: JADE LANGE II am Date/Time01/24/2018 [...] FDictated DT/TM: 01/24/2018 12:48 pmSigned by: MD Corley Adam FSig serina (Electronic Signature): 01/24/2018 12:50 pmPOC [id number] 08:01:17* Test Item Value Reference Range Interpretation Comments Glucose POC (test code = Glucose POC) 154 mg/dL 70-115 H If you consider your patient critically ill, the Nitish-Accu Check Infrom II meter should not be used for Glucose determination. Draw a venous Glucose and send to the main Lab for analysis. POC [id number] 19:43:16* Test Item Value Reference Range Interpretation Comments Glucose POC (test code = Glucose POC) 237 mg/dL 70-115 H If you consider your patient critically ill, the Nitish-Accu Check Infrom II meter should not be used for Glucose determination. Draw a venous Glucose and send to the main Lab for analysis. POC [id number] 16:14:13* Test Item Value Reference Range Interpretation Comments Glucose POC (test code = Glucose POC) 146 mg/dL 70-115 H Notify RN or MDIf you consider your patient critically ill, the Nitish-Accu Check Infrom II meter should not be used for Glucose determination. Draw a venous Glucose and send to the main Lab for analysis. POC [id number] 11:56:48* Test Item Value Reference Range Interpretation Comments Glucose POC (test code = Glucose POC) 167 mg/dL 70-115 H Notify RN or MDIf you consider your patient critically ill, the Nitish-Accu Check Infrom II meter should not be used for Glucose determination. Draw a venous Glucose and send to the main Lab for analysis. POC [id number] 07:34:44* Test Item Value Reference Range Interpretation Comments Glucose POC (test code = Glucose POC) 186 mg/dL 70-115 H Notify RN or MDIf you consider your patient critically ill, the Nitish-Accu Check Infrom II meter should not be used for Glucose determination. Draw a venous Glucose and send to the main Lab for analysis. POC [id number] 21:30:39* Test Item Value Reference Range Interpretation Comments Glucose POC (test code = Glucose POC) 206 mg/dL 70-115 H If you consider your patient critically ill, the Nitish-Accu Check Infrom II meter should not be used for Glucose determination. Draw a venous Glucose and send to the main Lab for analysis. POC [id number] 16:21:39* Test Item Value Reference Range Interpretation Comments Glucose POC (test code = Glucose POC) 178 mg/dL 70-115 H If you consider your patient critically ill, the Nitish-Accu Check Infrom II meter should not be used for Glucose determination. Draw a venous Glucose and send to the main Lab for analysis. POC [id number] 11:42:11* Test Item Value Reference Range Interpretation Comments Glucose POC (test code = Glucose POC) 70 mg/dL 70-115 If you consider your patient critically ill, the Nitish-Accu Check Infrom II meter should not be used for Glucose determination. Draw a venous Glucose and send to the main Lab for analysis. POC Glucose, [id number] 20:25:00* Test Item Value Reference Range Interpretation Comments POC Glucose (test code = POCGLUC) 140 mg/dL 70-115 H If you consider your patient critically ill, the Nitish Accu-Chek InformII metershould not be used for Glucose determinations.Draw a venous Glucose and send to the Main Lab for Analysis. POC Glucose, [id number] 16:51:00* Test Item Value Reference Range Interpretation Comments POC Glucose (test code = POCGLUC) 133 mg/dL 70-115 H If you consider your patient critically ill, the Nitish Accu-Chek InformII metershould not be used for Glucose determinations.Draw a venous Glucose and send to the Main Lab for Analysis. POC Glucose, [id number] 11:56:00* Test Item Value Reference Range Interpretation Comments POC Glucose (test code = POCGLUC) 180 mg/dL 70-115 H If you consider your patient critically ill, the Nitish Accu-Chek InformII metershould not be used for Glucose determinations.Draw a venous Glucose and send to the Main Lab for Analysis. POC Glucose, [id number] 08:28:00* Test Item Value Reference Range Interpretation Comments POC Glucose (test code = POCGLUC) 138 mg/dL 70-115 H If you consider your patient critically ill, the Nitish Accu-Chek InformII metershould not be used for Glucose determinations.Draw a venous Glucose and send to the Main Lab for Analysis. POC Glucose, [id number] 20:29:00* Test Item Value Reference Range Interpretation Comments POC Glucose (test code = POCGLUC) 259 mg/dL 70-115 H If you consider your patient critically ill, the Nitish Accu-Chek InformII metershould not be used for Glucose determinations.Draw a venous Glucose and send to the Main Lab for Analysis. POC Glucose, [id number] 17:00:00* Test Item Value Reference Range Interpretation Comments POC Glucose (test code = POCGLUC) 103 mg/dL 70-115 N If you consider your patient critically ill, the Nitish Accu-Chek InformII metershould not be used for Glucose determinations.Draw a venous Glucose and send to the Main Lab for Analysis. POC Glucose, [id number] 19:50:00* Test Item Value Reference Range Interpretation Comments POC Glucose (test code = POCGLUC) 225 mg/dL 70-115 H Notify RN or MDIf you consider your patient critically ill, the Nitish Accu-Chek InformII metershould not be used for Glucose determinations.Draw a venous Glucose and send to the Main Lab for Analysis. POC Glucose, [id number] 16:12:00* Test Item Value Reference Range Interpretation Comments POC Glucose (test code = POCGLUC) 267 mg/dL 70-115 H If you consider your patient critically ill, the Nitish Accu-Chek InformII metershould not be used for Glucose determinations.Draw a venous Glucose and send to the Main Lab for Analysis. POC Glucose, [id number] 11:11:00* Test Item Value Reference Range Interpretation Comments POC Glucose (test code = POCGLUC) 118 mg/dL 70-115 H If you consider your patient critically ill, the Nitish Accu-Chek InformII metershould not be used for Glucose determinations.Draw a venous Glucose and send to the Main Lab for Analysis. POC Glucose, [id number] 07:39:00* Test Item Value Reference Range Interpretation Comments POC Glucose (test code = POCGLUC) 157 mg/dL 70-115 H If you consider your patient critically ill, the [place] Accu-Chek InformII metershould not be used for Glucose determinations.Draw a venous Glucose and send to the Main Lab for Analysis. RBC, Crossmatch 01:56:00* Test Item Value Reference Range Interpretation Comments Product 1 Code (test code = PRODCODE1) E4532 Unit 1 ID (test code = UNITID1) [id number] Unit 1 ABO (test code = UNITABO1) O Unit 1 Rh (test code = UNITRH1) POS Unit 1 Interp (test code = UNITINTERP1) Compatible Unit 1 Status (test code = UNITSTAT1) RE Product 2 Code (test code = PRODCODE2) E4533 Unit 2 ID (test code = UNITID2) [id number] Unit 2 ABO (test code = UNITABO2) O Unit 2 Rh (test code = UNITRH2) POS Unit 2 Interp (test code = UNITINTERP2) Compatible Unit 2 Status (test code = UNITSTAT2) RE POC Glucose, [id number] 20:15:00* Test Item Value Reference Range Interpretation Comments POC Glucose (test code = POCGLUC) 166 mg/dL 70-115 H If you consider your patient critically ill, the [place] Accu-Chek InformII metershould not be used for Glucose determinations.Draw a venous Glucose and send to the Main Lab for Analysis. POC Glucose, [id number] 16:09:00* Test Item Value Reference Range Interpretation Comments POC Glucose (test code = POCGLUC) 127 mg/dL 70-115 H If you consider your patient critically ill, the [place] Accu-Chek InformII metershould not be used for Glucose determinations.Draw a venous Glucose and send to the Main Lab for Analysis. POC Glucose, [id number] 12:48:00* Test Item Value Reference Range Interpretation Comments POC Glucose (test code = POCGLUC) 151 mg/dL 70-115 H If you consider your patient critically ill, the [place] Accu-Chek InformII metershould not be used for Glucose determinations.Draw a venous Glucose and send to the Main Lab for Analysis. POC Glucose, [id number] 07:43:00* Test Item Value Reference Range Interpretation Comments POC Glucose (test code = POCGLUC) 148 mg/dL 70-115 H Notify RN or MDIf you consider your patient critically ill, the [employer] Accu-Chek InformII metershould not be used for Glucose determinations.Draw a venous Glucose and send to the Main Lab for Analysis. RBC, Crossmatch 06:00:00* Test Item Value Reference Range Interpretation Comments Product 1 Code (test code = PRODCODE1) E4543 Unit 1 ID (test code = UNITID1) [id number] Unit 1 ABO (test code = UNITABO1) O Unit 1 Rh (test code = UNITRH1) POS Unit 1 Interp (test code = UNITINTERP1) Compatible Unit 1 Status (test code = UNITSTAT1) PT Product 2 Code (test code = PRODCODE2) E4544 Unit 2 ID (test code = UNITID2) [id number] Unit 2 ABO (test code = UNITABO2) O Unit 2 Rh (test code = UNITRH2) POS Unit 2 Interp (test code = UNITINTERP2) Compatible Unit 2 Status (test code = UNITSTAT2) PT POC Glucose, [id number] 20:44:00* Test Item Value Reference Range Interpretation Comments POC Glucose (test code = POCGLUC) 261 mg/dL 70-115 H If you consider your patient critically ill, the [employer] Accu-Chek InformII metershould not be used for Glucose determinations.Draw a venous Glucose and send to the Main Lab for Analysis. POC Glucose, [id number] 16:08:00* Test Item Value Reference Range Interpretation Comments POC Glucose (test code = POCGLUC) 140 mg/dL 70-115 H Notify RN or MDIf you consider your patient critically ill, the [employer] Accu-Chek InformII metershould not be used for Glucose determinations.Draw a venous Glucose and send to the Main Lab for Analysis. [id number] 12:03:00* Test Item Value Reference Range Interpretation Comments Osmolality [Serum] (test code = CMOSMOS) 286 mOsm/Kg 270-295 N POC Glucose, [id number] 11:29:00* Test Item Value Reference Range Interpretation Comments POC Glucose (test code = POCGLUC) 190 mg/dL 70-115 H Notify RN or MDIf you consider your patient critically ill, the [employer] Accu-Chek InformII metershould not be used for Glucose determinations.Draw a venous Glucose and send to the Main Lab for Analysis. CBC with [id number] 09:44:00* Test Item Value Reference Range Interpretation Comments WBC (test code = WBC) 12.4 K/cumm 4.4-10.5 H RBC (test code = RBC) 3.73 M/cumm 4.10-5.70 L Hemoglobin (test code = HGB) 9.8 gm/dL 13.4-17.4 L READ BACK LAB VALUESVERIFIED BY REPEAT TESTINGrechecked & called to mee,rn @ 4497, post txn/mdj Hematocrit (test code = HCT) 33.0 % 38.7-52.0 L MCV (test code = MCV) 88.5 fL 80-100 N MCH (test code = MCH) 26.1 pg 27.0-32.5 L MCHC (test code = MCHC) 29.5 g/dL 32.0-37.5 L RDW (test code = RDW) 16.6 % 11.5-14.5 H Platelet Count (test code = PLTCT) 729 K/cumm 140-440 H MPV (test code = MPV) 9.6 fL Diff Method (test code = DIFFM) Auto Neutrophil (test code = NEUT) 52.1 % 36-70 N Lymphocyte (test code = LYMPH) 39.5 % 12-44 N Monocyte (test code = MONO) 5.9 % 0-11 N Eosinophil (test code = EOS) 2.1 % 0-7 N Basophil (test code = BASO) 0.5 % 0-2 N Neutro Abs (test code = ANEUT) 6.5 K/cumm 1.6-7.4 N Lymph Abs (test code = ALYMPH) 4.9 K/cumm 0.5-4.6 H Borden Abs (test code = AMONO) 0.7 K/cumm 0.0-1.2 N Eos Abs (test code = AEOS) 0.26 K/cumm 0.00-0.74 N Baso Abs (test code = ABASO) 0.1 K/cumm 0.00-0.21 N Hypochromic (test code = HYPO) Slight [id number] 07:53:00* Test Item Value Reference Range Interpretation Comments Phosphorus (test code = PO4) 5.0 mg/dL 2.70-4.50 H Magnesium, [id number] 07:53:00* Test Item Value Reference Range Interpretation Comments Magnesium (test code = MG) 2.1 mg/dL 1.7-2.5 N Basic Metabolic [id number] 07:53:00* Test Item Value Reference Range Interpretation Comments Sodium (test code = NA) 140 mmol/L 135-145 N Potassium (test code = K) 4.6 mmol/L 3.5-5.1 N Chloride (test code = CL) 99 mmol/L 98-105 N Carbon Dioxide (test code = CO2) 29 mmol/L 22-29 N Glucose (test code = GLU) 102 mg/dL 70-115 N Blood Urea Nitrogen (test code = BUN) 10 mg/dL 6-20 N Creatinine (test code = CREAT) 0.6 mg/dL 0.7-1.2 L Calcium (test code = CA) 8.5 mg/dL 8.3-10.5 N BUN/Creatinine Ratio (test code = BCRATIO) 16.7 Anion Gap (test code = AGAP) 12 mmol/L 7-16 N Estimated GFR (test code = GFR) >60 mL/min/1.73m2 eGFR (estimated Glomerular Filtration Rate) is an estimated value,calculated from the patient's serum creatinine using the MDRD equation.It is NOT the patient's actual GFR. The eGFR provides a more clinicallyuseful measure of kidney disease than serum creatinine alone.This calculation takes sex and race into account, if the informationis provided. If the race is not provided, and the patient isAfrican-T[place], multiply by 1.212. If sex is not provided, and thepatient is female, multiply by 0.742. Results for patients <18 years ofage have not been validated by the MDRD study and should be interpretedwith caution.eGFR Result Interpretation:eGFR > or = 60 is in the Normal RangeeGFR < 60 may mean kidney diseaseeGFR < 15 may mean kidney failureRanges recommended by the National Kidney Found ation,http://nkdep.nih.gov POC Glucose, [id number] 07:01:00* Test Item Value Reference Range Interpretation Comments POC Glucose (test code = POCGLUC) 109 mg/dL 70-115 N Notify RN or MDIf you consider your patient critically ill, the [employer] Accu-Chek InformII metershould not be used for Glucose determinations.Draw a venous Glucose and send to the Main Lab for Analysis. POC Glucose, [id number] 20:23:00* Test Item Value Reference Range Interpretation Comments POC Glucose (test code = POCGLUC) 234 mg/dL 70-115 H Notify RN or MDIf you consider your patient critically ill, the [employer] Accu-Chek InformII metershould not be used for Glucose determinations.Draw a venous Glucose and send to the Main Lab for Analysis. POC Glucose, [id number] 16:47:00* Test Item Value Reference Range Interpretation Comments POC Glucose (test code = POCGLUC) 154 mg/dL 70-115 H If you consider your patient critically ill, the [employer] Accu-Chek InformII metershould not be used for Glucose determinations.Draw a venous Glucose and send to the Main Lab for Analysis. POC Glucose, [id number] 12:13:00* Test Item Value Reference Range Interpretation Comments POC Glucose (test code = POCGLUC) 266 mg/dL 70-115 H Notify RN or MDIf you consider your patient critically ill, the [employer] Accu-Chek InformII metershould not be used for Glucose determinations.Draw a venous Glucose and send to the Main Lab for Analysis. Comprehensive Metabolic [id number] 11:21:00* Test Item Value Reference Range Interpretation Comments Sodium (test code = NA) 154 mmol/L 135-145 H Potassium (test code = K) 3.1 mmol/L 3.5-5.1 L Chloride (test code = CL) 112 mmol/L 98-105 H Carbon Dioxide (test code = CO2) 21 mmol/L 22-29 L Glucose (test code = GLU) 149 mg/dL 70-115 H Blood Urea Nitrogen (test code = BUN) 11 mg/dL 6-20 N Creatinine (test code = CREAT) 0.6 mg/dL 0.7-1.2 L Calcium (test code = CA) 5.3 mg/dL 8.3-10.5 LL Prot Total (test code = TP) 4.7 g/dL 6.4-8.3 L Albumin (test code = ALB) 1.8 g/dL 3.5-5.2 L A/G Ratio (test code = AGRATIO) 0.6 Ratio Globulin (test code = GLOB) 2.9 2.9-3.1 N Bili Total (test code = TBIL) 0.2 mg/dL 0.1-0.9 N Alk Phos (test code = APHOS) 121 U/L 40-129 N AST (test code = AST) 15 U/L 1-40 N ALT (test code = ALT) 20 U/L 1-41 N BUN/Creatinine Ratio (test code = BCRATIO) 18.3 Anion Gap (test code = AGAP) 21 mmol/L 7-16 H Estimated GFR (test code = GFR) >60 mL/min/1.73m2 eGFR (estimated Glomerular Filtration Rate) is an estimated value,calculated from the patient's serum creatinine using the MDRD equation.It is NOT the patient's actual GFR. The eGFR provides a more clinicallyuseful measure of kidney disease than serum creatinine alone.This calculation takes sex and race into account, if the informationis provided. If the race is not provided, and the patient isAfrican-Tanz[place], multiply by 1.212. If sex is not provided, and thepatient is female, multiply by 0.742. Results for patients <18 years ofage have not been validated by the MDRD study and should be interpretedwith caution.eGFR Result Interpretation:eGFR > or = 60 is in the Normal RangeeGFR < 60 may mean kidney diseaseeGFR < 15 may mean kidney failureRanges recommended by the National Kidney Found ation,http://nkdep.nih.gov POC Glucose, [id number] 08:23:00* Test Item Value Reference Range Interpretation Comments POC Glucose (test code = POCGLUC) 161 mg/dL 70-115 H Notify RN or MDIf you consider your patient critically ill, the [employer] Accu-Chek InformII metershould not be used for Glucose determinations.Draw a venous Glucose and send to the Main Lab for Analysis. CBC with [id number] 08:17:00* Test Item Value Reference Range Interpretation Comments WBC (test code = WBC) 11.7 K/cumm 4.4-10.5 H RBC (test code = RBC) 2.89 M/cumm 4.10-5.70 L Hemoglobin (test code = HGB) 7.6 gm/dL 13.4-17.4 L READ BACK LAB VALUESVERIFIED BY REPEAT TESTINGrechecked & called to mee,rn @ 08, no info given/ana Hematocrit (test code = HCT) 25.4 % 38.7-52.0 L MCV (test code = MCV) 87.9 fL 80-100 N MCH (test code = MCH) 26.4 pg 27.0-32.5 L MCHC (test code = MCHC) 30.0 g/dL 32.0-37.5 L RDW (test code = RDW) 16.6 % 11.5-14.5 H Platelet Count (test code = PLTCT) 766 K/cumm 140-440 H MPV (test code = MPV) 8.9 fL Diff Method (test code = DIFFM) Auto Neutrophil (test code = NEUT) 57.2 % 36-70 N Lymphocyte (test code = LYMPH) 35.2 % 12-44 N Monocyte (test code = MONO) 5.5 % 0-11 N Eosinophil (test code = EOS) 1.7 % 0-7 N Basophil (test code = BASO) 0.4 % 0-2 N Neutro Abs (test code = ANEUT) 6.7 K/cumm 1.6-7.4 N Lymph Abs (test code = ALYMPH) 4.1 K/cumm 0.5-4.6 N Borden Abs (test code = AMONO) 0.7 K/cumm 0.0-1.2 N Eos Abs (test code = AEOS) 0.20 K/cumm 0.00-0.74 N Baso Abs (test code = ABASO) 0.0 K/cumm 0.00-0.21 N Hypochromic (test code = HYPO) Slight POC Glucose, [id number] 23:42:00* Test Item Value Reference Range Interpretation Comments POC Glucose (test code = POCGLUC) 331 mg/dL 70-115 H Notify RN or MDIf you consider your patient critically ill, the [employer] Accu-Chek InformII metershould not be used for Glucose determinations.Draw a venous Glucose and send to the Main Lab for Analysis. POC Glucose, [id number] 16:22:00* Test Item Value Reference Range Interpretation Comments POC Glucose (test code = POCGLUC) 201 mg/dL 70-115 H If you consider your patient critically ill, the [employer] Accu-Chek InformII metershould not be used for Glucose determinations.Draw a venous Glucose and send to the Main Lab for Analysis. POC Glucose, [id number] 15:13:00* Test Item Value Reference Range Interpretation Comments POC Glucose (test code = POCGLUC) 196 mg/dL 70-115 H If you consider your patient critically ill, the [employer] Accu-Chek InformII metershould not be used for Glucose determinations.Draw a venous Glucose and send to the Main Lab for Analysis. Antibody Screen - [id number] 14:13:00* Test Item Value Reference Range Interpretation Comments Antibody Screen (test code = ABSCR) Negative Blood Type and [id number] 13:06:00* Test Item Value Reference Range Interpretation Comments ABO type (test code = ABO) O Rh Type (test code = RH) Positive POC Glucose, [id number] 20:35:00* Test Item Value Reference Range Interpretation Comments POC Glucose (test code = POCGLUC) 198 mg/dL 70-115 H If you consider your patient critically ill, the [employer] Accu-Chek InformII metershould not be used for Glucose determinations.Draw a venous Glucose and send to the Main Lab for Analysis. POC Glucose, [id number] 17:03:00* Test Item Value Reference Range Interpretation Comments POC Glucose (test code = POCGLUC) 170 mg/dL 70-115 H If you consider your patient critically ill, the [employer] Accu-Chek InformII metershould not be used for Glucose determinations.Draw a venous Glucose and send to the Main Lab for Analysis. POC Glucose, [id number] 11:36:00* Test Item Value Reference Range Interpretation Comments POC Glucose (test code = POCGLUC) 269 mg/dL 70-115 H If you consider your patient critically ill, the [employer] Accu-Chek InformII metershould not be used for Glucose determinations.Draw a venous Glucose and send to the Main Lab for Analysis. Comprehensive Metabolic [id number] 09:15:00* Test Item Value Reference Range Interpretation Comments Sodium (test code = NA) 136 mmol/L 135-145 N Potassium (test code = K) 4.7 mmol/L 3.5-5.1 N Chloride (test code = CL) 95 mmol/L 98-105 L Carbon Dioxide (test code = CO2) 26 mmol/L 22-29 N Glucose (test code = GLU) 137 mg/dL 70-115 H Blood Urea Nitrogen (test code = BUN) 16 mg/dL 6-20 N Creatinine (test code = CREAT) 0.7 mg/dL 0.7-1.2 N Calcium (test code = CA) 9.0 mg/dL 8.3-10.5 N Prot Total (test code = TP) 8.2 g/dL 6.4-8.3 N Albumin (test code = ALB) 3.3 g/dL 3.5-5.2 L A/G Ratio (test code = AGRATIO) 0.7 Ratio Globulin (test code = GLOB) 4.9 2.9-3.1 H Bili Total (test code = TBIL) 0.3 mg/dL 0.1-0.9 N Alk Phos (test code = APHOS) 251 U/L 40-129 H AST (test code = AST) 35 U/L 1-40 N ALT (test code = ALT) 45 U/L 1-41 H BUN/Creatinine Ratio (test code = BCRATIO) 22.9 Anion Gap (test code = AGAP) 15 mmol/L 7-16 N Estimated GFR (test code = GFR) >60 mL/min/1.73m2 eGFR (estimated Glomerular Filtration Rate) is an estimated value,calculated from the patient's serum creatinine using the MDRD equation.It is NOT the patient's actual GFR. The eGFR provides a more clinicallyuseful measure of kidney disease than serum creatinine alone.This calculation takes sex and race into account, if the informationis provided. If the race is not provided, and the patient isAfrican-[place], multiply by 1.212. If sex is not provided, and thepatient is female, multiply by 0.742. Results for patients <18 years ofage have not been validated by the MDRD study and should be interpretedwith caution.eGFR Result Interpretation:eGFR > or = 60 is in the Normal RangeeGFR < 60 may mean kidney diseaseeGFR < 15 may mean kidney failureRanges recommended by the National Kidney Found ation,http://nkdep.nih.gov POC Glucose, [id number] 07:57:00* Test Item Value Reference Range Interpretation Comments POC Glucose (test code = POCGLUC) 140 mg/dL 70-115 H If you consider your patient critically ill, the [employer] Accu-Chek InformII metershould not be used for Glucose determinations.Draw a venous Glucose and send to the Main Lab for Analysis. CBC with [id number] 07:51:00* Test Item Value Reference Range Interpretation Comments WBC (test code = WBC) 14.3 K/cumm 4.4-10.5 H RBC (test code = RBC) 3.80 M/cumm 4.10-5.70 L Hemoglobin (test code = HGB) 10.2 gm/dL 13.4-17.4 L Hematocrit (test code = HCT) 32.7 % 38.7-52.0 L MCV (test code = MCV) 85.9 fL 80-100 N MCH (test code = MCH) 26.7 pg 27.0-32.5 L MCHC (test code = MCHC) 31.1 g/dL 32.0-37.5 L RDW (test code = RDW) 16.3 % 11.5-14.5 H Platelet Count (test code = PLTCT) 916 K/cumm 140-440 H MPV (test code = MPV) 6.3 fL Diff Method (test code = DIFFM) Auto Neutrophil (test code = NEUT) 56.3 % 36-70 N Lymphocyte (test code = LYMPH) 35.6 % 12-44 N Monocyte (test code = MONO) 5.5 % 0-11 N Eosinophil (test code = EOS) 2.4 % 0-7 N Basophil (test code = BASO) 0.4 % 0-2 N Neutro Abs (test code = ANEUT) 8.1 K/cumm 1.6-7.4 H Lymph Abs (test code = ALYMPH) 5.1 K/cumm 0.5-4.6 H Borden Abs (test code = AMONO) 0.8 K/cumm 0.0-1.2 N Eos Abs (test code = AEOS) 0.34 K/cumm 0.00-0.74 N Baso Abs (test code = ABASO) 0.1 K/cumm 0.00-0.21 N Hypochromic (test code = HYPO) Slight POC Glucose, [id number] 20:52:00* Test Item Value Reference Range Interpretation Comments POC Glucose (test code = POCGLUC) 225 mg/dL 70-115 H If you consider your patient critically ill, the [employer] Accu-Chek InformII metershould not be used for Glucose determinations.Draw a venous Glucose and send to the Main Lab for Analysis. POC Glucose, [id number] 16:50:00* Test Item Value Reference Range Interpretation Comments POC Glucose (test code = POCGLUC) 216 mg/dL 70-115 H If you consider your patient critically ill, the [employer] Accu-Chek InformII metershould not be used for Glucose determinations.Draw a venous Glucose and send to the Main Lab for Analysis. POC Glucose, [id number] 12:46:00* Test Item Value Reference Range Interpretation Comments POC Glucose (test code = POCGLUC) 145 mg/dL 70-115 H If you consider your patient critically ill, the [employer] Accu-Chek InformII metershould not be used for Glucose determinations.Draw a venous Glucose and send to the Main Lab for Analysis. POC Glucose, [id number] 08:05:00* Test Item Value Reference Range Interpretation Comments POC Glucose (test code = POCGLUC) 154 mg/dL 70-115 H If you consider your patient critically ill, the [employer] Accu-Chek InformII metershould not be used for Glucose determinations.Draw a venous Glucose and send to the Main Lab for Analysis. POC Glucose, [id number] 19:52:00* Test Item Value Reference Range Interpretation Comments POC Glucose (test code = POCGLUC) 254 mg/dL 70-115 H Notify RN or MDIf you consider your patient critically ill, the [employer] Accu-Chek InformII metershould not be used for Glucose determinations.Draw a venous Glucose and send to the Main Lab for Analysis. POC Glucose, [id number] 17:27:00* Test Item Value Reference Range Interpretation Comments POC Glucose (test code = POCGLUC) 208 mg/dL 70-115 H If you consider your patient critically ill, the [employer] Accu-Chek InformII metershould not be used for Glucose determinations.Draw a venous Glucose and send to the Main Lab for Analysis. POC Glucose, [id number] 12:36:00* Test Item Value Reference Range Interpretation Comments POC Glucose (test code = POCGLUC) 166 mg/dL 70-115 H If you consider your patient critically ill, the [employer] Accu-Chek InformII metershould not be used for Glucose determinations.Draw a venous Glucose and send to the Main Lab for Analysis. Culture, Blood [id number] 09:10:00Specimen: BloodCollected: 01/02/2018 23:50 Status: Final Last Updated: 01/08/2018 09:10 Culture Result (Final) (Final) No Growth After 5 Days Culture, Blood [id number] 09:10:00Specimen: BloodCollected: 01/02/2018 23:50 Status: Final Last Updated: 01/08/2018 09:10 Culture Result (Final) (Final) No Growth After 5 Days POC Glucose, [id number] 08:13:00* Test Item Value Reference Range Interpretation Comments POC Glucose (test code = POCGLUC) 173 mg/dL 70-115 H If you consider your patient critically ill, the [employer] Accu-Chek InformII metershould not be used for Glucose determinations.Draw a venous Glucose and send to the Main Lab for Analysis. POC Glucose, [id number] 20:27:00* Test Item Value Reference Range Interpretation Comments POC Glucose (test code = POCGLUC) 223 mg/dL 70-115 H Notify RN or MDIf you consider your patient critically ill, the [employer] Accu-Chek InformII metershould not be used for Glucose determinations.Draw a venous Glucose and send to the Main Lab for Analysis. POC Glucose, [id number] 15:46:00* Test Item Value Reference Range Interpretation Comments POC Glucose (test code = POCGLUC) 205 mg/dL 70-115 H If you consider your patient critically ill, the [employer] Accu-Chek InformII metershould not be used for Glucose determinations.Draw a venous Glucose and send to the Main Lab for Analysis. Culture, Wound [id number] 13:42:00Specimen/Source: Wound/RT. ISCHIUMCollected: 01/04/2018 12:50 Status: Final [...] Resistant Vancomycin (VA) 2 Susceptible Culture, Blood [id number] 13:34:00Specimen: BloodCollected: 12/31/2017 14:25 Status: Final Last Updated: 01/07/2018 13:34 (1) ER Bed 15 Culture Result (Final) (Final) 01/05/18 Evidence of growth Gram positive coccobacilli (anaerobicbottle) 01/05/18 Called to Erin Chappell at 2:42pm YA Read Back Lab Value 01/07/18 Anaerobic Diphtheroids Culture, Wound [id number] 11:54:00Specimen/Source: Bone/left footCollected: 01/02/2018 09:20 Status: Final Last Updated: 01/07/2018 11:54 Gram Stain (Final) (Final) 01/02/18 No organisms seen, Few WBC's Culture Result (Final) (Final) 01/03/18 Growth too young to evaluate at 24 hours-reincubated 01/04/18 Few Diphtheroids 01/06/18 Anaerobic culture:No anaerobes isolated at 3 days Isolate (Final) (Final) 01/04/18 Rare Klebsiella pneumoniae 01/05/18 Confirmed ESBL film reproducer Amikacin <=16 Susceptible Ampicillin >16 Resistant Ampicillin/Sulb [...] Tobramycin <=4 Susceptible Trimethoprim/Sulfa >2/38 Resistant Culture, [id number] 09:41:00Specimen: UrineCollected: 01/05/2018 05:30 Status: Final Last Updated: 01/07/2018 09:41 Culture Result (Final) (Final) 01/06/18 <10,000 CFU/mL Yeast POC Glucose, [id number] 07:53:00* Test Item Value Reference Range Interpretation Comments POC Glucose (test code = POCGLUC) 190 mg/dL 70-115 H If you consider your patient critically ill, the [employer] Accu-Chek InformII metershould not be used for Glucose determinations.Draw a venous Glucose and send to the Main Lab for Analysis. POC Glucose, [id number] 20:37:00* Test Item Value Reference Range Interpretation Comments POC Glucose (test code = POCGLUC) 213 mg/dL 70-115 H Notify RN or MDIf you consider your patient critically ill, the [employer] Accu-Chek InformII metershould not be used for Glucose determinations.Draw a venous Glucose and send to the Main Lab for Analysis. POC Glucose, [id number] 17:19:00* Test Item Value Reference Range Interpretation Comments POC Glucose (test code = POCGLUC) 144 mg/dL 70-115 H If you consider your patient critically ill, the N[employer] Accu-Chek InformII metershould not be used for Glucose determinations.Draw a venous Glucose and send to the Main Lab for Analysis. POC Glucose, [id number] 12:29:00* Test Item Value Reference Range Interpretation Comments POC Glucose (test code = POCGLUC) 136 mg/dL 70-115 H If you consider your patient critically ill, the [employer] Accu-Chek InformII metershould not be used for Glucose determinations.Draw a venous Glucose and send to the Main Lab for Analysis. POC Glucose, [id number] 08:30:00* Test Item Value Reference Range Interpretation Comments POC Glucose (test code = POCGLUC) 174 mg/dL 70-115 H If you consider your patient critically ill, the N[employer] Accu-Chek InformII metershould not be used for Glucose determinations.Draw a venous Glucose and send to the Main Lab for Analysis. Culture, Wound [id number] 06:55:00Specimen/Source: Foot/LeftCollected: 01/02/2018 09:20 Status: Final Last [...] <=4 Susceptible Trimethoprim/Sulfa >2/38 Resistant Culture, Wound [id number] 06:53:00Specimen: HipCollected: 01/01/2018 21:50 Status: Final Last Updated: 01/06/2018 06:53 Gram Stain (Final) (Final) 01/02/18 Many WBC'S , Few Gram Positive Cocci In Pairs , Few Diphtheroids Culture Result (Final) (Final) 01/04/18 Moderate Alpha streptococcus (not Group D or Enterococcus) 01/06/18 Anaerobic culture:No anaerobes isolated at 3 days Isolate (Final) (Final) 01/03/18 Few Beta Hemolytic Streptococcus Streptococcus agalactiae Culture, Wound [id number] 06:51:00Specimen/Source: Bone/left hipCollected: 01/02/2018 08:45 Status: Final Last Updated: 01/06/2018 06:51 Gram Stain (Final) (Final) 01/02/18 Rare WBC'S , Few Gram Positive Cocci In Pairs Culture Result (Final) (Final) 01/04/18 Moderate Alpha streptococcus (not Group D or Enterococcus) 01/06/18 Anaerobic culture:No anaerobes isolated at 3 days Isolate (Final) (Final) 01/03/18 Moderate Beta Hemolytic Streptococcus Streptococcus agalactiae Culture, Wound [id number] 06:47:00Specimen/Source: Hip/left deepCollected: 01/02/2018 08:45 Status: Final Last Updated: 01/06/2018 06:47 Gram Stain (Final) (Final) 01/02/18 Many WBC'S , Moderate Gram Positive Cocci In Pairs Culture Result (Final) (Final) 01/04/18 Moderate Alpha streptococcus (not Group D or Enterococcus) 01/06/18 Anaerobic culture:No anaerobes isolated at 3 days Isolate (Final) (Final) 01/03/18 Few Beta Hemolytic Streptococcus Streptococcus agalactiae Culture, Wound [id number] 06:47:00 Specimen/Source: Hip/lft superficialCollected: 01/02/2018 08:30 Status: Final Last Updated: 01/06/2018 06:47 Gram Stain (Final) (Final) 01/02/18 Few WBC'S , Rare Gram Positive Cocci In Pairs Culture Result (Final) (Final) 01/04/18 Moderate Alpha streptococcus (not Group D or Enterococcus) 8 Anaerobic culture:No anaerobes isolated at 3 days Isolate (Final) (Final) 01/03/18 Few Beta Hemolytic Streptococcus Streptococcus agalactiae CBC with [id number] 06:09:00* Test Item Value Reference Range Interpretation Comments WBC (test code = WBC) 13.3 K/cumm 4.4-10.5 H RBC (test code = RBC) 3.25 M/cumm 4.10-5.70 L Hemoglobin (test code = HGB) 8.4 gm/dL 13.4-17.4 L READ BACK LAB VALUESVERIFIED BY REPEAT TESTINGcalled to Lisandra Squires RN at 0605 01/06/2018. transfusion. DD Hematocrit (test code = HCT) 28.4 % 38.7-52.0 L MCV (test code = MCV) 87.4 fL 80-100 N MCH (test code = MCH) 25.9 pg 27.0-32.5 L MCHC (test code = MCHC) 29.7 g/dL 32.0-37.5 L RDW (test code = RDW) 15.9 % 11.5-14.5 H Platelet Count (test code = PLTCT) 948 K/cumm 140-440 H MPV (test code = MPV) 9.3 fL Diff Method (test code = DIFFM) Auto Neutrophil (test code = NEUT) 54.1 % 36-70 N Lymphocyte (test code = LYMPH) 35.4 % 12-44 N Monocyte (test code = MONO) 5.0 % 0-11 N Eosinophil (test code = EOS) 5.1 % 0-7 N Basophil (test code = BASO) 0.4 % 0-2 N Neutro Abs (test code = ANEUT) 7.2 K/cumm 1.6-7.4 N Lymph Abs (test code = ALYMPH) 4.7 K/cumm 0.5-4.6 H Borden Abs (test code = AMONO) 0.7 K/cumm 0.0-1.2 N Eos Abs (test code = AEOS) 0.67 K/cumm 0.00-0.74 N Baso Abs (test code = ABASO) 0.1 K/cumm 0.00-0.21 N Hypochromic (test code = HYPO) Slight [id number] 06:08:00* Test Item Value Reference Range Interpretation Comments Phosphorus (test code = PO4) 4.7 mg/dL 2.70-4.50 H Magnesium, [id number] 06:08:00* Test Item Value Reference Range Interpretation Comments Magnesium (test code = MG) 2.3 mg/dL 1.7-2.5 N Basic Metabolic [id number] 06:08:00* Test Item Value Reference Range Interpretation Comments Sodium (test code = NA) 137 mmol/L 135-145 N Potassium (test code = K) 4.7 mmol/L 3.5-5.1 N Chloride (test code = CL) 99 mmol/L 98-105 N Carbon Dioxide (test code = CO2) 28 mmol/L 22-29 N Glucose (test code = GLU) 162 mg/dL 70-115 H Blood Urea Nitrogen (test code = BUN) 12 mg/dL 6-20 N Creatinine (test code = CREAT) 0.6 mg/dL 0.7-1.2 L Calcium (test code = CA) 8.1 mg/dL 8.3-10.5 L BUN/Creatinine Ratio (test code = BCRATIO) 20.0 Anion Gap (test code = AGAP) 10 mmol/L 7-16 N Estimated GFR (test code = GFR) >60 mL/min/1.73m2 eGFR (estimated Glomerular Filtration Rate) is an estimated value,calculated from the patient's serum creatinine using the MDRD equation.It is NOT the patient's actual GFR. The eGFR provides a more clinicallyuseful measure of kidney disease than serum creatinine alone.This calculation takes sex and race into account, if the informationis provided. If the race is not provided, and the patient isAfrican-T[place], multiply by 1.212. If sex is not provided, and thepatient is female, multiply by 0.742. Results for patients <18 years ofage have not been validated by the MDRD study and should be interpretedwith caution.eGFR Result Interpretation:eGFR > or = 60 is in the Normal RangeeGFR < 60 may mean kidney diseaseeGFR < 15 may mean kidney failureRanges recommended by the National Kidney Found ation,http://nkdep.nih.gov POC Glucose, [id number] 21:59:00* Test Item Value Reference Range Interpretation Comments POC Glucose (test code = POCGLUC) 292 mg/dL 70-115 H If you consider your patient critically ill, the Nitish Accu-Chek InformII metershould not be used for Glucose determinations.Draw a venous Glucose and send to the Main Lab for Analysis. Culture, Blood [id number] 20:17:00Specimen: BloodCollected: 12/31/2017 14:25 Status: Final Last Updated: 01/05/2018 20:16 (1) ER Bed 15 Culture Result (Final) (Final) No Growth After 5 Days POC Glucose, Blood 2018-01-05 17:30:00* Test Item Value Reference Range Interpretation Comments POC Glucose (test code = POCGLUC) 256 mg/dL 70-115 H If you consider your patient critically ill, the Nitish Accu-Chek InformII metershould not be used for Glucose determinations.Draw a venous Glucose and send to the Main Lab for Analysis. Culture, Wound [id number] 13:37:00Specimen: WoundCollected: 12/31/2017 17:30 Status: Final Last [...] no further workup in progress POC Glucose, [id number] 12:24:00* Test Item Value Reference Range Interpretation Comments POC Glucose (test code = POCGLUC) 190 mg/dL 70-115 H If you consider your patient critically ill, the Nitish Accu-Chek InformII metershould not be used for Glucose determinations.Draw a venous Glucose and send to the Main Lab for Analysis. POC Glucose, [id number] 08:14:00* Test Item Value Reference Range Interpretation Comments POC Glucose (test code = POCGLUC) 145 mg/dL 70-115 H If you consider your patient critically ill, the Nitish Accu-Chek InformII metershould not be used for Glucose determinations.Draw a venous Glucose and send to the Main Lab for Analysis. RBC, Crossmatch 06:00:00* Test Item Value Reference Range Interpretation Comments Product 1 Code (test code = PRODCODE1) E4532 Unit 1 ID (test code = UNITID1) [id number] Unit 1 ABO (test code = UNITABO1) O Unit 1 Rh (test code = UNITRH1) POS Unit 1 Interp (test code = UNITINTERP1) Compatible Unit 1 Status (test code = UNITSTAT1) PT Product 2 Code (test code = PRODCODE2) E0336 Unit 2 ID (test code = UNITID2) [id number] Unit 2 ABO (test code = UNITABO2) O Unit 2 Rh (test code = UNITRH2) POS Unit 2 Interp (test code = UNITINTERP2) Compatible Unit 2 Status (test code = UNITSTAT2) PT POC Glucose, [id number] 19:38:00* Test Item Value Reference Range Interpretation Comments POC Glucose (test code = POCGLUC) 241 mg/dL 70-115 H If you consider your patient critically ill, the Nitish Accu-Chek InformII metershould not be used for Glucose determinations.Draw a venous Glucose and send to the Main Lab for Analysis. POC Glucose, [id number] 17:18:00* Test Item Value Reference Range Interpretation Comments POC Glucose (test code = POCGLUC) 163 mg/dL 70-115 H If you consider your patient critically ill, the Nitish Accu-Chek InformII metershould not be used for Glucose determinations.Draw a venous Glucose and send to the Main Lab for Analysis. CBC with [id number] 11:05:00* Test Item Value Reference Range Interpretation Comments WBC (test code = WBC) 14.0 K/cumm 4.4-10.5 H RBC (test code = RBC) 1.48 M/cumm 4.10-5.70 L Hemoglobin (test code = HGB) 3.6 gm/dL 13.4-17.4 LL Hematocrit (test code = HCT) 12.9 % 38.7-52.0 L MCV (test code = MCV) 87.0 fL 80-100 N MCH (test code = MCH) 24.5 pg 27.0-32.5 L MCHC (test code = MCHC) 28.2 g/dL 32.0-37.5 L RDW (test code = RDW) 15.5 % 11.5-14.5 H Platelet Count (test code = PLTCT) 1206 K/cumm 140-440 HH MPV (test code = MPV) 10.1 fL Diff Method (test code = DIFFM) Auto Neutrophil (test code = NEUT) 58.0 % 36-70 N Lymphocyte (test code = LYMPH) 32.9 % 12-44 N Monocyte (test code = MONO) 5.3 % 0-11 N Eosinophil (test code = EOS) 3.5 % 0-7 N Basophil (test code = BASO) 0.3 % 0-2 N Neutro Abs (test code = ANEUT) 8.1 K/cumm 1.6-7.4 H Lymph Abs (test code = ALYMPH) 4.6 K/cumm 0.5-4.6 N Borden Abs (test code = AMONO) 0.7 K/cumm 0.0-1.2 N Eos Abs (test code = AEOS) 0.48 K/cumm 0.00-0.74 N Baso Abs (test code = ABASO) 0.0 K/cumm 0.00-0.21 N RBC Morphology (test code = RBCMRPH) Slight Anisocytosis ; M oderate Hypochromia Hypochromic (test code = HYPO) Moderate Platelet Est (test code = PLTEST) Increased Platelet on Smear Culture, [id number] 10:25:00Specimen: Urine, CC-MidstreamCollected: 12/31/2017 15:25 Status: Final Last Updated: 01/04/2018 10:25 (1) ER Bed 15 Culture Result (Final) (Final) 01/02/18 40,000 CFU/mL Yeast Isolate (Final) (Final) 01/01/18 30,000 CFU/mL Klebsiella pneumoniae 01/03/18 Multi Drug Resistant Organism - Contact IsolationRecommended 01/03/18 Called to Reina Campoverde at 8:38am YA Read Back Lab Value +01/04/18 Colistin = 14mm No interpretation (by disc diffusion method) Amikacin [...] Back Lab Value Amikacin <=16 Susceptible Ampicillin >16 Resistant Ampicillin/Sulb >16/8 Resistant Cefazolin >16 Resistant Cefepime >16 Resistant Cefotaxime >32 Resistant Ceftazidime 16 Resistant Ceftriaxone >32 Resistant Cefuroxime >16 Resistant Ciprofloxacin >2 Resistant Gentamicin >8 Resistant Imipenem <=1 Susceptible Levofloxacin <=2 Susceptible Meropenem <=1 Susceptible Nitrofurantoin 64 Intermediate Piperacillin/Tazo <=16 Susceptible Tobramycin >8 Resistant Trimethoprim/Sulfa >2/38 Resistant Basic Metabolic [id number] 09:09:00* Test Item Value Reference Range Interpretation Comments Sodium (test code = NA) 139 mmol/L 135-145 N Potassium (test code = K) 4.5 mmol/L 3.5-5.1 N Chloride (test code = CL) 98 mmol/L 98-105 N Carbon Dioxide (test code = CO2) 30 mmol/L 22-29 H Glucose (test code = GLU) 188 mg/dL 70-115 H Blood Urea Nitrogen (test code = BUN) 8 mg/dL 6-20 N Creatinine (test code = CREAT) 0.6 mg/dL 0.7-1.2 L Calcium (test code = CA) 8.1 mg/dL 8.3-10.5 L BUN/Creatinine Ratio (test code = BCRATIO) 13.3 Anion Gap (test code = AGAP) 11 mmol/L 7-16 N Estimated GFR (test code = GFR) >60 mL/min/1.73m2 eGFR (estimated Glomerular Filtration Rate) is an estimated value,calculated from the patient's serum creatinine using the MDRD equation.It is NOT the patient's actual GFR. The eGFR provides a more clinicallyuseful measure of kidney disease than serum creatinine alone.This calculation takes sex and race into account, if the informationis provided. If the race is not provided, and the patient isAfrican-[place], multiply by 1.212. If sex is not provided, and thepatient is female, multiply by 0.742. Results for patients <18 years ofage have not been validated by the MDRD study and should be interpretedwith caution.eGFR Result Interpretation:eGFR > or = 60 is in the Normal RangeeGFR < 60 may mean kidney diseaseeGFR < 15 may mean kidney failureRanges recommended by the National Kidney Found ation,http://nkdep.nih.gov POC Glucose, [id number] 07:47:00* Test Item Value Reference Range Interpretation Comments POC Glucose (test code = POCGLUC) 205 mg/dL 70-115 H Notify RN or MDIf you consider your patient critically ill, the Nitish Accu-Chek InformII metershould not be used for Glucose determinations.Draw a venous Glucose and send to the Main Lab for Analysis. [id number] 07:44:00* Test Item Value Reference Range Interpretation Comments Hemoglobin (test code = HGB) 6.2 gm/dL 13.4-17.4 LL Prothrombin [id number] 06:48:00* Test Item Value Reference Range Interpretation Comments PT (test code = PT) 15.20 seconds 9.78-13.35 H INR (test code = INR) 1.35 Ratio 0.6-1.2 H Partial Thromboplastin [id number] 06:48:00* Test Item Value Reference Range Interpretation Comments aPTT (test code = PTT) 33.60 seconds 24.39-37.25 N US DUPLX LWR EXT ART/BPG, [id number] 22:44:29LOCATION: [id number]: 37-year-old male with a left foot wound. [...] dorsali spedis artery as outlined above.POC Glucose, [id number] 17:03:00* Test Item Value Reference Range Interpretation Comments POC Glucose (test code = POCGLUC) 225 mg/dL 70-115 H Notify RN or MDIf you consider your patient critically ill, the Nitish Accu-Chek InformII metershould not be used for Glucose determinations.Draw a venous Glucose and send to the Main Lab for Analysis. XR CHEST 1 [id number] 12:50:15CHEST 1 VIEWCLINICAL INFORMATION: FEVERCOMPARISON: January 01, 2018FINDINGS:Patchy opacities in the right lung base are stable to the comparisonstudy. There is a small right pleural effusion. The left lung isclear. The heart size is normal. A left arm PICC terminates in thesuperior vena cava.IMPRESSION:Small right pleural effusion with associated lower lobe consolidation.LOCATION: R16POC Glucose, [id number] 12:04:00* Test Item Value Reference Range Interpretation Comments POC Glucose (test code = POCGLUC) 239 mg/dL 70-115 H Notify RN or MDIf you consider your patient critically ill, the Nitish Accu-Chek InformII metershould not be used for Glucose determinations.Draw a venous Glucose and send to the Main Lab for Analysis. POC Glucose, [id number] 07:33:00* Test Item Value Reference Range Interpretation Comments POC Glucose (test code = POCGLUC) 236 mg/dL 70-115 H Notify RN or MDIf you consider your patient critically ill, the Nitish Accu-Chek InformII metershould not be used for Glucose determinations.Draw a venous Glucose and send to the Main Lab for Analysis. Basic Metabolic [id number] 06:59:00* Test Item Value Reference Range Interpretation Comments Sodium (test code = NA) 136 mmol/L 135-145 N Potassium (test code = K) 4.4 mmol/L 3.5-5.1 N Chloride (test code = CL) 99 mmol/L 98-105 N Carbon Dioxide (test code = CO2) 28 mmol/L 22-29 N Glucose (test code = GLU) 192 mg/dL 70-115 H Blood Urea Nitrogen (test code = BUN) 6 mg/dL 6-20 N Creatinine (test code = CREAT) 0.5 mg/dL 0.7-1.2 L Calcium (test code = CA) 7.4 mg/dL 8.3-10.5 L BUN/Creatinine Ratio (test code = BCRATIO) 12.0 Anion Gap (test code = AGAP) 9 mmol/L 7-16 N Estimated GFR (test code = GFR) >60 mL/min/1.73m2 eGFR (estimated Glomerular Filtration Rate) is an estimated value,calculated from the patient's serum creatinine using the MDRD equation.It is NOT the patient's actual GFR. The eGFR provides a more clinicallyuseful measure of kidney disease than serum creatinine alone.This calculation takes sex and race into account, if the informationis provided. If the race is not provided, and the patient isAfrican-[place], multiply by 1.212. If sex is not provided, and thepatient is female, multiply by 0.742. Results for patients <18 years ofage have not been validated by the MDRD study and should be interpretedwith caution.eGFR Result Interpretation:eGFR > or = 60 is in the Normal RangeeGFR < 60 may mean kidney diseaseeGFR < 15 may mean kidney failureRanges recommended by the National Kidney Found ation,http://nkdep.nih.gov [id number] 06:58:00* Test Item Value Reference Range Interpretation Comments Hemoglobin (test code = HGB) 7.2 gm/dL 13.4-17.4 L RBC, Crossmatch 06:00:00* Test Item Value Reference Range Interpretation Comments Product 1 Code (test code = PRODCODE1) E4532 Unit 1 ID (test code = UNITID1) [id number] Unit 1 ABO (test code = UNITABO1) O Unit 1 Rh (test code = UNITRH1) POS Unit 1 Interp (test code = UNITINTERP1) Compatible Unit 1 Status (test code = UNITSTAT1) PT Urinalysis [id number] 01:58:00* Test Item Value Reference Range Interpretation Comments Color (test code = COLOR) Yellow Yellow,Straw,Pl yellow N Clarity (test code = CLAR) Clear Clear N Specific [place] (test code = SPGR) 1.013 1.001-1.035 N pH (test code = PH) 7.0 5.0-9.0 N Ketone (test code = KET) Negative mg/dL Negative N Glucose (test code = GLUCUR) Negative mg/dL Negative N Protein (test code = PROT) Negative mg/dL Negative N Bilirubin (test code = BILI) Negative mg/dL Negative N Occult Blood (test code = UDOB) Negative Negative N Urobilinogen (test code = UROB) 0.2 mg/dL 0.2-1.0 N Nitrite (test code = NIT) Negative Negative N Leuk Esterase (test code = LEUK) Small Negative A Micros Exam (test code = MEXAM) Indicated Epithelial Cells (test code = EPI) None Seen /LPF 0-30 A WBC, Urine (test code = UWBC) 0-1 /HPF 0-5 A RBC, Urine (test code = URBC) None Seen /HPF 0-5 A Bacteria (test code = BACT) None /HPF Yeast (test code = YEAST) Few /HPF POC Glucose, [id number] 20:19:00* Test Item Value Reference Range Interpretation Comments POC Glucose (test code = POCGLUC) 328 mg/dL 70-115 H Notify RN or MDIf you consider your patient critically ill, the Nitish Accu-Chek InformII metershould not be used for Glucose determinations.Draw a venous Glucose and send to the Main Lab for Analysis. Vancomycin, [id number] 12:52:00* Test Item Value Reference Range Interpretation Comments TranYessenia ramirez (test code = VANTR) 10.7 ug/mL 10.0-20.0 N POC Glucose, [id number] 12:16:00* Test Item Value Reference Range Interpretation Comments POC Glucose (test code = POCGLUC) 208 mg/dL 70-115 H Notify RN or MDIf you consider your patient critically ill, the Nitish Accu-Chek InformII metershould not be used for Glucose determinations.Draw a venous Glucose and send to the Main Lab for Analysis. Vitamin [id number] 07:24:00* Test Item Value Reference Range Interpretation Comments Vitamin B 12 (test code = VITB12) 727 pg/mL 211-946 N Ferritin, [id number] 07:24:00* Test Item Value Reference Range Interpretation Comments Ferritin (test code = FERR) 147 ng/mL 30-400 N TIBC and [id number] 07:09:00* Test Item Value Reference Range Interpretation Comments Iron (test code = FE) 28 ug/dL 59-158 L UIBC (test code = UIBC) 162 ug/dL 112-346 N TIBC (test code = TIBC) 190 ug/dL 171-504 N % Saturation (test code = PSAT) 15 % 20-50 L [id number] 07:07:00* Test Item Value Reference Range Interpretation Comments Phosphorus (test code = PO4) 4.5 mg/dL 2.70-4.50 N Magnesium, [id number] 07:07:00* Test Item Value Reference Range Interpretation Comments Magnesium (test code = MG) 2.1 mg/dL 1.7-2.5 N Basic Metabolic [id number] 07:07:00* Test Item Value Reference Range Interpretation Comments Sodium (test code = NA) 137 mmol/L 135-145 N Potassium (test code = K) 4.4 mmol/L 3.5-5.1 N Chloride (test code = CL) 96 mmol/L 98-105 L Carbon Dioxide (test code = CO2) 29 mmol/L 22-29 N Glucose (test code = GLU) 197 mg/dL 70-115 H Blood Urea Nitrogen (test code = BUN) 10 mg/dL 6-20 N Creatinine (test code = CREAT) 0.6 mg/dL 0.7-1.2 L Calcium (test code = CA) 8.1 mg/dL 8.3-10.5 L BUN/Creatinine Ratio (test code = BCRATIO) 16.7 Anion Gap (test code = AGAP) 12 mmol/L 7-16 N Estimated GFR (test code = GFR) >60 mL/min/1.73m2 eGFR (estimated Glomerular Filtration Rate) is an estimated value,calculated from the patient's serum creatinine using the MDRD equation.It is NOT the patient's actual GFR. The eGFR provides a more clinicallyuseful measure of kidney disease than serum creatinine alone.This calculation takes sex and race into account, if the informationis provided. If the race is not provided, and the patient isAfrican-[place], multiply by 1.212. If sex is not provided, and thepatient is female, multiply by 0.742. Results for patients <18 years ofage have not been validated by the MDRD study and should be interpretedwith caution.eGFR Result Interpretation:eGFR > or = 60 is in the Normal RangeeGFR < 60 may mean kidney diseaseeGFR < 15 may mean kidney failureRanges recommended by the National Kidney Found ation,http://nkdep.nih.gov CBC with [id number] 06:42:00* Test Item Value Reference Range Interpretation Comments WBC (test code = WBC) 10.0 K/cumm 4.4-10.5 N RBC (test code = RBC) 2.92 M/cumm 4.10-5.70 L Hemoglobin (test code = HGB) 7.2 gm/dL 13.4-17.4 L Hematocrit (test code = HCT) 25.2 % 38.7-52.0 L MCV (test code = MCV) 86.4 fL 80-100 N MCH (test code = MCH) 24.6 pg 27.0-32.5 L MCHC (test code = MCHC) 28.5 g/dL 32.0-37.5 L RDW (test code = RDW) 14.6 % 11.5-14.5 H Platelet Count (test code = PLTCT) 953 K/cumm 140-440 H MPV (test code = MPV) 9.7 fL Diff Method (test code = DIFFM) Auto Neutrophil (test code = NEUT) 51.7 % 36-70 N Lymphocyte (test code = LYMPH) 38.6 % 12-44 N Monocyte (test code = MONO) 7.1 % 0-11 N Eosinophil (test code = EOS) 2.1 % 0-7 N Basophil (test code = BASO) 0.5 % 0-2 N Neutro Abs (test code = ANEUT) 5.2 K/cumm 1.6-7.4 N Lymph Abs (test code = ALYMPH) 3.9 K/cumm 0.5-4.6 N Borden Abs (test code = AMONO) 0.7 K/cumm 0.0-1.2 N Eos Abs (test code = AEOS) 0.21 K/cumm 0.00-0.74 N Baso Abs (test code = ABASO) 0.1 K/cumm 0.00-0.21 N Hypochromic (test code = HYPO) Slight POC Glucose, [id number] 20:59:00* Test Item Value Reference Range Interpretation Comments POC Glucose (test code = POCGLUC) 267 mg/dL 70-115 H Notify RN or MDIf you consider your patient critically ill, the Nitish Accu-Chek InformII metershould not be used for Glucose determinations.Draw a venous Glucose and send to the Main Lab for Analysis. Antibody Screen - [id number] 18:56:00* Test Item Value Reference Range Interpretation Comments Antibody Screen (test code = ABSCR) Negative Blood Type and [id number] 18:55:00* Test Item Value Reference Range Interpretation Comments ABO type (test code = ABO) O Rh Type (test code = RH) Positive XR CHEST 1 [id number] 17:18:53LOCATION: [id number]: 37-year-old male, status post PICC line placement.COMMENT:A [...] 2018-01-01 16:03:00* Test Item Value Reference Range Interpretation Comments POC Glucose (test code = POCGLUC) 238 mg/dL 70-115 H If you consider your patient critically ill, the Nitish Accu-Chek InformII metershould not be used for Glucose determinations.Draw a venous Glucose and send to the Main Lab for Analysis. CT PELVIS LTD W/O [id number] 13:58:03LOCATION: [id number]: 37-year-old male presents with a left hip [...] 2018-01-01 11:45:00* Test Item Value Reference Range Interpretation Comments POC Glucose (test code = POCGLUC) 349 mg/dL 70-115 H Notify RN or MDIf you consider your patient critically ill, the Nitish Accu-Chek InformII metershould not be used for Glucose determinations.Draw a venous Glucose and send to the Main Lab for Analysis. Glycosylated [id number] 08:17:00* Test Item Value Reference Range Interpretation Comments HBA1c (test code = HBA1C) 11.2 % 4.8-5.9 H POC Glucose, [id number] 07:54:00* Test Item Value Reference Range Interpretation Comments POC Glucose (test code = POCGLUC) 326 mg/dL 70-115 H Notify RN or MDIf you consider your patient critically ill, the Nitish Accu-Chek InformII metershould not be used for Glucose determinations.Draw a venous Glucose and send to the Main Lab for Analysis. CBC with [id number] 07:28:00* Test Item Value Reference Range Interpretation Comments WBC (test code = WBC) 10.6 K/cumm 4.4-10.5 H RBC (test code = RBC) 2.72 M/cumm 4.10-5.70 L Hemoglobin (test code = HGB) 6.8 gm/dL 13.4-17.4 LL Hematocrit (test code = HCT) 23.4 % 38.7-52.0 L MCV (test code = MCV) 86.1 fL 80-100 N MCH (test code = MCH) 25.1 pg 27.0-32.5 L MCHC (test code = MCHC) 29.1 g/dL 32.0-37.5 L RDW (test code = RDW) 14.6 % 11.5-14.5 H Platelet Count (test code = PLTCT) 1089 K/cumm 140-440 HH MPV (test code = MPV) 9.8 fL Diff Method (test code = DIFFM) Manual Neutrophil (test code = NEUT) 44.0 % 36-70 N Bands (test code = BAND) 7.0 % 0-6 H Lymphocyte (test code = LYMPH) 38.0 % 12-44 N Monocyte (test code = MONO) 7.0 % 0-11 N Eosinophil (test code = EOS) 2.0 % 0-7 N Basophil (test code = BASO) 2.0 % 0-2 N Neutro Abs (test code = ANEUT) 5.4 K/cumm 1.6-7.4 N Lymph Abs (test code = ALYMPH) 4.0 K/cumm 0.5-4.6 N Borden Abs (test code = AMONO) 0.7 K/cumm 0.0-1.2 N Eos Abs (test code = AEOS) 0.21 K/cumm 0.00-0.74 N Baso Abs (test code = ABASO) 0.2 K/cumm 0.00-0.21 N RBC Morphology (test code = RBCMRPH) Moderate Hypochromia Platelet Est (test code = PLTEST) Increased Platelet on Smear Thyroid Stimulating Hormone (TSH)2018-01-01 06:26:00* Test Item Value Reference Range Interpretation Comments TSH (test code = TSH) 5.31 mIU/mL 0.270-4.200 H Lipid [id number] 06:21:00* Test Item Value Reference Range Interpretation Comments Cholesterol (test code = CHOL) 103 mg/dL 0-200 N Triglycerides (test code = TRIG) 199 mg/dL 9-200 N HDL (test code = HDL) 14 mg/dL 40-60 L Chol/HDL (test code = CHOLPHDL) 7.4 Ratio 0.0-5.0 H LDL, Calculated (test code = LDLC) 49 0-130 N (NOTE)RISK OF HEART DISEASEPublished by [place] Heart AssociationAnalyte Optimal Boderline Increased RiskCHOL <200 200-239 >240TRIG <150 150-199 >200HDL Male: >60 <40HDL Female: >60 <50LDL <100 130-159 >160LDL NEAR OPTIMAL IS 100-129 VLDL (test code = VLDL) 40 mg/dL 5-40 N LDL/HDL (test code = LDLPHDL) 4 [id number] 06:21:00* Test Item Value Reference Range Interpretation Comments Phosphorus (test code = PO4) 4.0 mg/dL 2.70-4.50 N Magnesium, [id number] 06:21:00* Test Item Value Reference Range Interpretation Comments Magnesium (test code = MG) 2.0 mg/dL 1.7-2.5 N Basic Metabolic [id number] 06:21:00* Test Item Value Reference Range Interpretation Comments Sodium (test code = NA) 136 mmol/L 135-145 N Potassium (test code = K) 4.4 mmol/L 3.5-5.1 N Chloride (test code = CL) 99 mmol/L 98-105 N Carbon Dioxide (test code = CO2) 25 mmol/L 22-29 N Glucose (test code = GLU) 277 mg/dL 70-115 H Blood Urea Nitrogen (test code = BUN) 8 mg/dL 6-20 N Creatinine (test code = CREAT) 0.6 mg/dL 0.7-1.2 L Calcium (test code = CA) 7.8 mg/dL 8.3-10.5 L BUN/Creatinine Ratio (test code = BCRATIO) 13.3 Anion Gap (test code = AGAP) 12 mmol/L 7-16 N Estimated GFR (test code = GFR) >60 mL/min/1.73m2 eGFR (estimated Glomerular Filtration Rate) is an estimated value,calculated from the patient's serum creatinine using the MDRD equation.It is NOT the patient's actual GFR. The eGFR provides a more clinicallyuseful measure of kidney disease than serum creatinine alone.This calculation takes sex and race into account, if the informationis provided. If the race is not provided, and the patient isAfrican-T[place], multiply by 1.212. If sex is not provided, and thepatient is female, multiply by 0.742. Results for patients <18 years ofage have not been validated by the MDRD study and should be interpretedwith caution.eGFR Result Interpretation:eGFR > or = 60 is in the Normal RangeeGFR < 60 may mean kidney diseaseeGFR < 15 may mean kidney failureRanges recommended by the National Kidney Found ation,http://nkdep.nih.gov Lactic Acid [id number] 06:16:00* Test Item Value Reference Range Interpretation Comments Lactic Acid, Bld (test code = LAC) 0.9 mmol/L 0.5-1.9 N Prothrombin [id number] 06:10:00* Test Item Value Reference Range Interpretation Comments PT (test code = PT) 15.20 seconds 9.78-13.35 H INR (test code = INR) 1.34 Ratio 0.6-1.2 H Partial Thromboplastin [id number] 06:10:00* Test Item Value Reference Range Interpretation Comments aPTT (test code = PTT) 32.20 seconds 24.39-37.25 N POC Glucose, [id number] 20:27:00* Test Item Value Reference Range Interpretation Comments POC Glucose (test code = POCGLUC) 329 mg/dL 70-115 H If you consider your patient critically ill, the [facility] Accu-Chek InformII metershould not be used for Glucose determinations.Draw a venous Glucose and send to the Main Lab for Analysis. Urinalysis [id number] 16:06:00* Test Item Value Reference Range Interpretation Comments Color (test code = COLOR) Yellow Yellow,Straw,Pl yellow N Clarity (test code = CLAR) Clear Clear N Specific [place] (test code = SPGR) 1.028 1.001-1.035 N pH (test code = PH) 7.0 5.0-9.0 N Ketone (test code = KET) 5 mg/dL Negative A Glucose (test code = GLUCUR) 1000 mg/dL Negative A Protein (test code = PROT) 75 mg/dL Negative A Bilirubin (test code = BILI) See IctoTest mg/dL Negative A Occult Blood (test code = UDOB) Small Negative A Urobilinogen (test code = UROB) 8.0 mg/dL 0.2-1.0 H Nitrite (test code = NIT) Positive Negative A Leuk Esterase (test code = LEUK) Small Negative A Ictotest (test code = ICTOTEST) Confirmed Negative Negative,Conf irmed Negative N Micros Exam (test code = MEXAM) Indicated Epithelial Cells (test code = EPI) 3-5 /LPF 0-30 A WBC, Urine (test code = UWBC) 10-14 /HPF 0-5 A RBC, Urine (test code = URBC) 0-2 /HPF 0-5 A Bacteria (test code = BACT) Many /HPF Yeast (test code = YEAST) Few /HPF bu dding yeast presentFS CBC with [id number] 15:56:00* Test Item Value Reference Range Interpretation Comments WBC (test code = WBC) 12.4 K/cumm 4.4-10.5 H RBC (test code = RBC) 3.22 M/cumm 4.10-5.70 L Hemoglobin (test code = HGB) 8.2 gm/dL 13.4-17.4 L Hematocrit (test code = HCT) 27.0 % 38.7-52.0 L MCV (test code = MCV) 83.7 fL 80-100 N MCH (test code = MCH) 25.5 pg 27.0-32.5 L MCHC (test code = MCHC) 30.5 g/dL 32.0-37.5 L RDW (test code = RDW) 14.6 % 11.5-14.5 H Platelet Count (test code = PLTCT) 1012 K/cumm 140-440 HH MPV (test code = MPV) 7.0 fL Diff Method (test code = DIFFM) Manual Neutrophil (test code = NEUT) 41.0 % 36-70 N Bands (test code = BAND) 12.0 % 0-6 H Lymphocyte (test code = LYMPH) 30.0 % 12-44 N Monocyte (test code = MONO) 16.0 % 0-11 H Eosinophil (test code = EOS) 1.0 % 0-7 N Neutro Abs (test code = ANEUT) 6.6 K/cumm 1.6-7.4 N Lymph Abs (test code = ALYMPH) 3.7 K/cumm 0.5-4.6 N Borden Abs (test code = AMONO) 2.0 K/cumm 0.0-1.2 H Eos Abs (test code = AEOS) 0.12 K/cumm 0.00-0.74 N RBC Morphology (test code = RBCMRPH) Slight Anisocytosis ; S light Polychromasia Platelet Est (test code = PLTEST) Increased Platelet on Smear Lactic Acid [id number] 15:12:00* Test Item Value Reference Range Interpretation Comments Lactic Acid, Bld (test code = LAC) 2.6 mmol/L 0.5-1.9 HH Comprehensive Metabolic [id number] 15:08:00* Test Item Value Reference Range Interpretation Comments Sodium (test code = NA) 135 mmol/L 135-145 N Potassium (test code = K) 5.0 mmol/L 3.5-5.1 N SL IGHT HEMOLYSIS Chloride (test code = CL) 96 mmol/L 98-105 L Carbon Dioxide (test code = CO2) 24 mmol/L 22-29 N Glucose (test code = GLU) 279 mg/dL 70-115 H Blood Urea Nitrogen (test code = BUN) 7 mg/dL 6-20 N Creatinine (test code = CREAT) 0.7 mg/dL 0.7-1.2 N Calcium (test code = CA) 8.2 mg/dL 8.3-10.5 L Prot Total (test code = TP) 7.5 g/dL 6.4-8.3 N Albumin (test code = ALB) 2.7 g/dL 3.5-5.2 L A/G Ratio (test code = AGRATIO) 0.6 Ratio Globulin (test code = GLOB) 4.8 2.9-3.1 H Bili Total (test code = TBIL) 0.3 mg/dL 0.1-0.9 N Alk Phos (test code = APHOS) 266 U/L 40-129 H AST (test code = AST) 30 U/L 1-40 N ALT (test code = ALT) 23 U/L 1-41 N BUN/Creatinine Ratio (test code = BCRATIO) 10.0 Anion Gap (test code = AGAP) 15 mmol/L 7-16 N Estimated GFR (test code = GFR) >60 mL/min/1.73m2 eGFR (estimated Glomerular Filtration Rate) is an estimated value,calculated from the patient's serum creatinine using the MDRD equation.It is NOT the patient's actual GFR. The eGFR provides a more clinicallyuseful measure of kidney disease than serum creatinine alone.This calculation takes sex and race into account, if the informationis provided. If the race is not provided, and the patient isAfrican-[place], multiply by 1.212. If sex is not provided, and thepatient is female, multiply by 0.742. Results for patients <18 years ofage have not been validated by the MDRD study and should be interpretedwith caution.eGFR Result Interpretation:eGFR > or = 60 is in the Normal RangeeGFR < 60 may mean kidney diseaseeGFR < 15 may mean kidney failureRanges recommended by the National Kidney Found ation,http://nkdep.nih.gov XR CHEST 1 [id number] 14:29:19CHEST 1 VIEWCLINICAL INFORMATION: FeverCOMPARISON: April 08, 2016FINDINGS:Linear scarring and/or atelectasis is seen in the right lower lobe. There is elevation of the right hemidiaphragm. The left lung is clear. The heart size is normal. The bones are intact.IMPRESSION:Atelectasis and/or scarring in the right lower lobe. Superimposedpneumonia cannot be excluded.LOCATION: [id number] HIP 2+V, UNI.-LEFT 2017-12-31 14:27:57L22WIXN: XR HIP 2+V, UNI.-LEFTHISTORY: Pain- erythemaCOMPARISON: NoneFINDINGS:No acute fracture or dislocation. The joint spaces are preserved.Apparent sclerosis in the right inferior pubic ramus; however, thereappears to be overlying bowel loops. No soft tissue abnormality.IMPRESSION:Findings suggestive of right inguinal hernia. Possible sclerotic lesionin the right inferior pubic ramus; however, this may be secondary tosuperimposed bowel loops. If pain persists, consider further evaluationwith CT.POCT-GLUCOSE [id number] 00:42:00* Test Item Value Reference Range Interpretation Comments POC-GLUCOSE METER (BEAKER) (test code = 1538) 315 mg/dL 70-110 H TESTED AT [address] [address] COMPREHENSIVE METABOLIC [id number] 21:43:00* Test Item Value Reference Range Interpretation Comments TOTAL PROTEIN (BEAKER) (test code = 770) 6.9 gm/dL 6.0-8.5 ALBUMIN (BEAKER) (test code = 1145) 2.9 g/dL 3.5-5.0 L ALKALINE PHOSPHATASE (BEAKER) (test code = 346) 372 U/L 30-115 H BILIRUBIN TOTAL (BEAKER) (test code = 377) 0.4 mg/dL 0.1-1.2 SODIUM (BEAKER) (test code = 381) 135 meq/L 135-148 POTASSIUM (BEAKER) (test code = 379) 3.9 meq/L 3.6-5.5 CHLORIDE (BEAKER) (test code = 382) 95 meq/L 98-106 L CO2 (BEAKER) (test code = 355) 29 meq/L 24-32 BLOOD UREA NITROGEN (BEAKER) (test code = 354) 9 mg/dL 10-26 L CREATININE (BEAKER) (test code = 358) 0.64 mg/dL 0.50-1.20 GLUCOSE RANDOM (BEAKER) (test code = 652) 434 mg/dL 70-110 HH CALCIUM (BEAKER) (test code = 697) 8.4 mg/dL 8.5-10.5 L AST (SGOT) (BEAKER) (test code = 353) 51 U/L 5-40 H ALT (SGPT) (BEAKER) (test code = 347) 47 U/L 5-50 EGFR (BEAKER) (test code = 1092) mL/min/1.73 sq m INSUFFICIENT CLINICAL DATA TO CALCULATE ESTIMATED GFR. CBC W/PLT COUNT & AUTO [id number] 21:29:00* Test Item Value Reference Range Interpretation Comments WHITE BLOOD CELL COUNT (BEAKER) (test code = 775) 11.6 10e3/ L 4.0- 10.0 H RED BLOOD CELL COUNT (BEAKER) (test code = 761) 3.40 10e6/ L 4.20-5 .80 L HEMOGLOBIN (BEAKER) (test code = 410) 9.2 g/dL 13.0-16.8 L HEMATOCRIT (BEAKER) (test code = 411) 27.9 % 40.0-50.0 L MEAN CORPUSCULAR VOLUME (BEAKER) (test code = 753) 81.9 fL 82. 0-98.0 L MEAN CORPUSCULAR HEMOGLOBIN (BEAKER) (test code = 751) 27.1 pg 27.0-33.0 MEAN CORPUSCULAR HEMOGLOBIN CONC (BEAKER) (test code = 752) 33.1 g/dL 32.0-36.0 RED CELL DISTRIBUTION WIDTH (BEAKER) (test code = 412) 13.8 % 10.3-14.2 PLATELET COUNT (BEAKER) (test code = 756) 894 10e3/ L 150-430 H MEAN PLATELET VOLUME (BEAKER) (test code = 754) 6.3 fL 6.5-10 .5 L NEUTROPHILS RELATIVE PERCENT (BEAKER) (test code = 429) 51 % LYMPHOCYTES RELATIVE PERCENT (BEAKER) (test code = 430) 34 % MONOCYTES RELATIVE PERCENT (BEAKER) (test code = 431) 13 % EOSINOPHILS RELATIVE PERCENT (BEAKER) (test code = 432) 2 % BASOPHILS RELATIVE PERCENT (BEAKER) (test code = 437) 1 % NEUTROPHILS ABSOLUTE COUNT (BEAKER) (test code = 670) 5.93 10e3/ L 1.80-8.00 LYMPHOCYTES ABSOLUTE COUNT (BEAKER) (test code = 414) 3.94 10e3/ L 1.48-4.50 MONOCYTES ABSOLUTE COUNT (BEAKER) (test code = 415) 1.46 10e3/ L 0. 00-1.30 H EOSINOPHILS ABSOLUTE COUNT (BEAKER) (test code = 416) 0.17 10e3/ L 0.00-0.50 BASOPHILS ABSOLUTE COUNT (BEAKER) (test code = 417) 0.10 10e3/ L 0. 00-0.20 KETONE, [id number] 21:23:00* Test Item Value Reference Range Interpretation Comments KETONES, BLOOD (BEAKER) (test code = 1103) 0.1 mmol/L <0.4
== END 2020-05-21 22:20 | disposition home or self-care (01) ==
LOC: FSED 20:40
DX: M79.604 Pain in right leg (principal); S82.401A Unspecified fracture of shaft of right fibula, initial encounter for closed fracture; G82.20 Paraplegia, unspecified; Z98.0 Intestinal bypass and anastomosis status; Z93.3 Colostomy status
CPT/HCPCS: 93971; 99284

== ENCOUNTER 2021-04-22 21:02 | Emergency (ER) | payer OTHER ==
[~2021-04-22] VITALS: Ht 190.5 cm; Wt 99.8 kg
[2021-04-22] MEDS ORDERED: FENTANYL CITRATE/PF 100MCG/2 ML INJ IV PRN (21:45)
[2021-04-22] MEDS ORDERED: FENTANYL CITRATE/PF 100MCG/2 ML INJ ONE (22:00)
[2021-04-22] MEDS ORDERED: ONDANSETRON HCL INJ 2MG/ML 2ML 2 MG/ML VIAL ONE (22:00)
[2021-04-22 22:33] LABS: BASOPHILS # (AUTO) 0.1 (0.0-0.1); BASOPHILS % 0.5 % (0.0-1.0); EOSINOPHILS # (AUTO) 0.2 (0.0-0.4); EOSINOPHILS % 1.1 % (0.0-6.0); HEMATOCRIT 34.7 % (38.2-49.6); HEMOGLOBIN 10.1 g/dL (14.0-18.0); LYMPHOCYTES # (AUTO) 4.5 (1.0-3.2); LYMPHOCYTES % 29.8 % (18.0-39.1); MEAN CORPUSCULAR HEMOGLOBIN 23.7 pg (28-32); MEAN CORPUSCULAR HGB CONC 29.1 g/dL (31-35); MEAN CORPUSCULAR VOLUME 81.5 fL (81-99); MONOCYTES # (AUTO) 1.1 (0.2-0.8); NEUTROPHILS # (AUTO) 9.1 (2.1-6.9); NEUTROPHILS % 61.1 % (38.7-80.0); PLATELET COUNT 707 x10e3/uL (140-360); RED BLOOD COUNT 4.26 x10e6/uL (4.3-5.7); RED CELL DISTRIBUTION WIDTH 17.1 % (11.7-14.4)
[2021-04-22 22:44] LABS: ANION GAP 16.5 mmol/L (8-16); CALCIUM 9.2 mg/dL (8.4-10.2); CREATININE, SERUM 0.88 mg/dL (0.72-1.25); POTASSIUM 4.5 mmol/L (3.5-5.1)
[2021-04-22] MEDS ORDERED: DOXYCYCLINE HY100 MG PO (23:12)
== END 2021-04-22 22:00 | disposition home or self-care (01) ==
LOC: ER 21:33
DX: R50.9 Fever, unspecified (principal); L89.329 Pressure ulcer of left buttock, unspecified stage; L89.319 Pressure ulcer of right buttock, unspecified stage; E11.65 Type 2 diabetes mellitus with hyperglycemia; G82.20 Paraplegia, unspecified; Z93.3 Colostomy status
CPT/HCPCS: 36415; 80048; 85025; 99282; J2405; J3010

== ENCOUNTER 2022-01-04 18:23 | Emergency (ER) | payer MEDICAID ==
[~2022-01-04] VITALS: Ht 190.5 cm; Wt 113.4 kg
[~2022-01-04 18:23] MED LIST changes: +DOXYCYCLINE HY100 MG PO
[2022-01-04] MEDS ORDERED: [UNRECOGNIZED DRUG - OTHER] PO (18:39)
[2022-01-04] MEDS ORDERED: JARDIANCE10 MG (18:39)
[2022-01-04] MEDS ORDERED: METFORMIN HCL500 M2 PO (18:39)
[2022-01-04] MEDS ORDERED: GLIPIZIDE10 MG (18:39)
== END 2022-01-04 20:22 | disposition home or self-care (01) ==
LOC: FSED 18:28
DX: R10.30 Lower abdominal pain, unspecified (principal); K59.00 Constipation, unspecified; E11.65 Type 2 diabetes mellitus with hyperglycemia; F32.A Depression, unspecified; Z98.0 Intestinal bypass and anastomosis status
CPT/HCPCS: 74176; 80053; 81003; 85025; 99283

== ENCOUNTER 2022-08-01 20:18 | Inpatient (IN) | payer MEDICAID ==
[~2022-08-01] VITALS: Ht 190.5 cm; Wt 99.8 kg
[~2022-08-01 20:18] MED LIST changes: +GLIPIZIDE10 MG; +JARDIANCE10 MG PO; +METFORMIN HCL500 M2 PO; -VESICARE10 MG; +VESICARE10 MG PO; +[UNRECOGNIZED DRUG - OTHER] PO
[2022-08-01] MEDS ORDERED: ACETAMINOPHEN 325 MG TAB PO ONE (21:15)
[2022-08-01] MEDS ORDERED: SODIUM CHLORIDE 0.9% 1000ML 1,000 ML IV ONE (21:30)
[2022-08-01 21:36] LABS: BASOPHILS % 0.3 % (0.0-1.0); EOSINOPHILS # (AUTO) 0.2 (0.0-0.4); EOSINOPHILS % 1.2 % (0.0-6.0); HEMATOCRIT 33.5 % (38.2-49.6); HEMOGLOBIN 9.5 g/dL (14.0-18.0); LYMPHOCYTES # (AUTO) 3.7 (1.0-3.2); LYMPHOCYTES % 25.1 % (18.0-39.1); MEAN CORPUSCULAR HEMOGLOBIN 23.7 pg (28-32); MEAN CORPUSCULAR HGB CONC 28.4 g/dL (31-35); MEAN CORPUSCULAR VOLUME 83.5 fL (81-99); MONOCYTES # (AUTO) 1.2 (0.2-0.8); MONOCYTES % 8.4 % (4.4-11.3); NEUTROPHILS # (AUTO) 9.5 (2.1-6.9); NEUTROPHILS % 64.6 % (38.7-80.0); PLATELET COUNT 700 x10e3/uL (140-360); RED BLOOD COUNT 4.01 x10e6/uL (4.3-5.7); RED CELL DISTRIBUTION WIDTH 16.1 % (11.7-14.4)
[2022-08-01 21:50] LABS: CLARITY,URINE CLEAR (CLEAR); COLOR,URINE YELLOW (YELLOW); KETONES,URINE NEGATIVE (NEGATIVE); LEUKOCYTE ESTERASE ,URINE NEGATIVE (NEGATIVE); NITRITE,URINE POSITIVE (NEGATIVE); PROTEIN,URINE DIPSTICK >=300 (NEGATIVE); URINE UROBILINOGEN 0.2 mg/dL (0.2 - 1)
[2022-08-01 21:52] LABS: INR 0.95; PARTIAL THROMBOPLASTIN TIME 36.1 seconds (23.8-35.5); PROTHROMBIN TIME 13.6 seconds (11.9-14.5)
[2022-08-01 22:01] LABS: ALBUMIN 2.2 g/dL (3.5-5.0); ALBUMIN/GLOBULIN RATIO 0.4 (0.8-2.0); ANION GAP 13.9 mmol/L (8-16); BACTERIA,URINE MODERATE /HPF; CALCIUM 8.7 mg/dL (8.4-10.2); CREATININE, SERUM 0.95 mg/dL (0.72-1.25); EPITHELIAL CELLS,URINE FEW /LPF; POTASSIUM 3.9 mmol/L (3.5-5.1); RBC,URINE 0-5 /HPF (0-5)
[2022-08-01] MEDS ORDERED: Vancomycin IV 1 GM in SODIUM CHLORIDE 0.9% 250ML 250 ML IV STA (23:14)
[2022-08-01] MEDS ORDERED: ONDANSETRON HCL INJ 2MG/ML 2ML 2 MG/ML VIAL IV PRN (23:30)
[2022-08-01] MEDS ORDERED: SODIUM CHLORIDE FLUSH 10 ML SYR INJ PRN (23:30)
[2022-08-02] VITALS (9 sets, daily range): BP systolic 136–163; BP diastolic 64–92
[2022-08-02 06:12] LABS: BASOPHILS % 0.2 % (0.0-1.0); EOSINOPHILS # (AUTO) 0.2 (0.0-0.4); EOSINOPHILS % 1.6 % (0.0-6.0); HEMATOCRIT 33.5 % (38.2-49.6); HEMOGLOBIN 9.6 g/dL (14.0-18.0); LYMPHOCYTES # (AUTO) 3.8 (1.0-3.2); LYMPHOCYTES % 36.4 % (18.0-39.1); MEAN CORPUSCULAR HEMOGLOBIN 24.2 pg (28-32); MEAN CORPUSCULAR HGB CONC 28.7 g/dL (31-35); MEAN CORPUSCULAR VOLUME 84.6 fL (81-99); MONOCYTES # (AUTO) 0.9 (0.2-0.8); MONOCYTES % 8.5 % (4.4-11.3); NEUTROPHILS # (AUTO) 5.6 (2.1-6.9); NEUTROPHILS % 52.9 % (38.7-80.0); PLATELET COUNT 658 x10e3/uL (140-360); RED BLOOD COUNT 3.96 x10e6/uL (4.3-5.7); RED CELL DISTRIBUTION WIDTH 16.2 % (11.7-14.4)
[2022-08-02 06:33] LABS: ALBUMIN 2.1 g/dL (3.5-5.0); ALBUMIN/GLOBULIN RATIO 0.4 (0.8-2.0); ANION GAP 11.9 mmol/L (8-16); CALCIUM 8.2 mg/dL (8.4-10.2); CREATININE, SERUM 0.75 mg/dL (0.72-1.25); POTASSIUM 3.9 mmol/L (3.5-5.1)
[2022-08-02] MEDS ORDERED: ACETAMINOPHEN 325 MG TAB PO PRN (08:45)
[2022-08-02] MEDS ORDERED: DEXTROSE 50% SYRINGE 50 ML IV PRN (08:45)
[2022-08-02] MEDS: DOCUSATE SODIUM 100 MG CAP PO SCH ×2 (09:00→15:53)
[2022-08-02] MEDS ORDERED: DOXYCYCLINE HYCLATE TABLET 100 MG TAB PO SCH (09:00)
[2022-08-02] MEDS: Vancomycin IV 1 GM in SODIUM CHLORIDE 0.9% 250ML 250 ML IV SCH ×2 (09:41→20:50)
[2022-08-02] MEDS: ASCORBIC ACID 500 MG TAB PO SCH ×2 (09:43→15:52)
[2022-08-02] MEDS: MAGNESIUM OXIDE 400 MG TAB PO SCH ×2 (09:43→15:52)
[2022-08-02] MEDS: INSULIN GLARGINE 100 UNITS/ML VIAL SQ SCH ×2 (09:46→16:56)
[2022-08-02] MEDS ORDERED: SODIUM CHLORIDE 0.9% 250ML 250 ML ONE (09:46)
[2022-08-02] MEDS: HYDROCODONE/APAP 5MG-325MG TAB PO PRN ×2 (10:35→16:47)
[2022-08-02] MEDS: INSULIN REGULAR, HUMAN 100 UNIT/1 ML SQ SCH ×3 (12:30→21:00)
[2022-08-02] MEDS ORDERED: CLONIDINE HCL 0.1 MG TAB PO PRN (12:30)
[2022-08-02] MEDS: FERROUS SULFATE 325 MG TAB PO SCH (15:53)
[2022-08-03] VITALS (8 sets, daily range): BP systolic 128–144; BP diastolic 62–95
[2022-08-03] MEDS: HYDROCODONE/APAP 5MG-325MG TAB PO PRN ×2 (02:30→08:29)
[2022-08-03] MEDS: LEVOTHYROXINE SODIUM 25 MCG TABLET PO SCH (05:36)
[2022-08-03 06:15] LABS: BASOPHILS # (AUTO) 0.1 (0.0-0.1); BASOPHILS % 0.5 % (0.0-1.0); EOSINOPHILS # (AUTO) 0.2 (0.0-0.4); EOSINOPHILS % 2.1 % (0.0-6.0); HEMATOCRIT 32.5 % (38.2-49.6); HEMOGLOBIN 9.6 g/dL (14.0-18.0); LYMPHOCYTES # (AUTO) 3.9 (1.0-3.2); LYMPHOCYTES % 41.4 % (18.0-39.1); MEAN CORPUSCULAR HGB CONC 29.5 g/dL (31-35); MEAN CORPUSCULAR VOLUME 81.3 fL (81-99); MONOCYTES # (AUTO) 0.7 (0.2-0.8); MONOCYTES % 7.6 % (4.4-11.3); NEUTROPHILS # (AUTO) 4.5 (2.1-6.9); NEUTROPHILS % 47.5 % (38.7-80.0); PLATELET COUNT 683 x10e3/uL (140-360); RED CELL DISTRIBUTION WIDTH 16.4 % (11.7-14.4)
[2022-08-03 06:36] LABS: ALBUMIN 2.1 g/dL (3.5-5.0); ALBUMIN/GLOBULIN RATIO 0.4 (0.8-2.0); ANION GAP 14.4 mmol/L (8-16); CALCIUM 8.8 mg/dL (8.4-10.2); CREATININE, SERUM 0.93 mg/dL (0.72-1.25); POTASSIUM 4.4 mmol/L (3.5-5.1)
[2022-08-03] MEDS ORDERED: SODIUM CHLORIDE 0.9% 250ML 250 ML ONE (08:26)
[2022-08-03] MEDS: Vancomycin IV 1 GM in SODIUM CHLORIDE 0.9% 250ML 250 ML IV SCH ×2 (08:28→21:27)
[2022-08-03] MEDS: DOCUSATE SODIUM 100 MG CAP PO SCH ×2 (08:29→15:32)
[2022-08-03] MEDS: MAGNESIUM OXIDE 400 MG TAB PO SCH ×2 (08:29→15:30)
[2022-08-03] MEDS: FERROUS SULFATE 325 MG TAB PO SCH ×2 (08:29→15:30)
[2022-08-03] MEDS: ASCORBIC ACID 500 MG TAB PO SCH ×2 (08:29→15:31)
[2022-08-03] MEDS: INSULIN GLARGINE 100 UNITS/ML VIAL SQ SCH ×2 (08:43→16:08)
[2022-08-03] MEDS: INSULIN REGULAR, HUMAN 100 UNIT/1 ML SQ SCH ×4 (08:43→21:38)
[2022-08-03] MEDS ORDERED: ONDANSETRON HCL 4 MG ORAL DISINTEGRATING TAB PO PRN (11:15)
[2022-08-03] MEDS: GLIPIZIDE 5 MG TAB PO SCH ×2 (12:23→15:30)
[2022-08-03] MEDS ORDERED: LANTUS 3ML100 UNITS/ SQ (12:31)
[2022-08-03] MEDS ORDERED: humalog SC (12:31)
[2022-08-03] MEDS: METFORMIN HCL 500 MG TAB CR PO SCH (15:30)
[2022-08-03] MEDS: HYDROCODONE/APAP 10MG-325MG TAB PO PRN ×2 (15:31→21:29)
[2022-08-03] MEDS: INSULIN LISPRO 100 UNIT/1 ML 3ML VIAL SQ SCH (16:09)
[2022-08-03] MEDS ORDERED: HUMALOG 10 UNIT SC SCH (16:30)
[2022-08-03] MEDS: BACLOFEN 10 MG TAB PO PRN (21:29)
[2022-08-04] VITALS (7 sets, daily range): BP systolic 108–140; BP diastolic 54–85
[2022-08-04] MEDS: HYDROCODONE/APAP 10MG-325MG TAB PO PRN ×4 (04:01→22:11)
[2022-08-04] MEDS: LEVOTHYROXINE SODIUM 25 MCG TABLET PO SCH (06:30)
[2022-08-04] MEDS: MAGNESIUM OXIDE 400 MG TAB PO SCH ×2 (08:53→16:37)
[2022-08-04] MEDS: FERROUS SULFATE 325 MG TAB PO SCH ×2 (08:53→16:38)
[2022-08-04] MEDS: ASCORBIC ACID 500 MG TAB PO SCH ×2 (08:53→16:39)
[2022-08-04] MEDS: METFORMIN HCL 500 MG TAB CR PO SCH ×2 (08:54→16:37)
[2022-08-04] MEDS: GLIPIZIDE 5 MG TAB PO SCH ×2 (08:54→16:30)
[2022-08-04] MEDS: Vancomycin IV 1 GM in SODIUM CHLORIDE 0.9% 250ML 250 ML IV SCH (08:55)
[2022-08-04] MEDS: DOCUSATE SODIUM 100 MG CAP PO SCH ×2 (08:56→16:42)
[2022-08-04] MEDS: INSULIN GLARGINE 100 UNITS/ML VIAL SQ SCH ×2 (09:04→16:40)
[2022-08-04] MEDS: INSULIN REGULAR, HUMAN 100 UNIT/1 ML SQ SCH ×4 (09:05→22:23)
[2022-08-04] MEDS: INSULIN LISPRO 100 UNIT/1 ML 3ML VIAL SQ SCH ×3 (09:05→16:30)
[2022-08-04] MEDS: MEROPENEM 1 GM in SODIUM CHLORIDE 0.9% 100 ML IV SCH ×2 (12:58→22:17)
[2022-08-04] MEDS: BACLOFEN 10 MG TAB PO PRN (22:11)
[2022-08-05] VITALS (7 sets, daily range): BP systolic 117–132; BP diastolic 53–78
[2022-08-05] MEDS: MEROPENEM 1 GM in SODIUM CHLORIDE 0.9% 100 ML IV SCH (05:36)
[2022-08-05] MEDS: HYDROCODONE/APAP 10MG-325MG TAB PO PRN ×2 (05:36→12:45)
[2022-08-05] MEDS: LEVOTHYROXINE SODIUM 25 MCG TABLET PO SCH (05:36)
[2022-08-05 06:12] LABS: BASOPHILS % 0.4 % (0.0-1.0); EOSINOPHILS # (AUTO) 0.2 (0.0-0.4); EOSINOPHILS % 2.1 % (0.0-6.0); HEMATOCRIT 35.6 % (38.2-49.6); HEMOGLOBIN 10.1 g/dL (14.0-18.0); LYMPHOCYTES # (AUTO) 4.1 (1.0-3.2); LYMPHOCYTES % 37.9 % (18.0-39.1); MEAN CORPUSCULAR HEMOGLOBIN 24.1 pg (28-32); MEAN CORPUSCULAR HGB CONC 28.4 g/dL (31-35); MONOCYTES # (AUTO) 0.9 (0.2-0.8); MONOCYTES % 7.9 % (4.4-11.3); NEUTROPHILS # (AUTO) 5.5 (2.1-6.9); NEUTROPHILS % 50.9 % (38.7-80.0); PLATELET COUNT 672 x10e3/uL (140-360); RED BLOOD COUNT 4.19 x10e6/uL (4.3-5.7)
[2022-08-05 06:35] LABS: ALBUMIN 2.3 g/dL (3.5-5.0); ALBUMIN/GLOBULIN RATIO 0.5 (0.8-2.0); ANION GAP 11.9 mmol/L (8-16); CALCIUM 8.4 mg/dL (8.4-10.2); CREATININE, SERUM 0.63 mg/dL (0.72-1.25); POTASSIUM 3.9 mmol/L (3.5-5.1)
[2022-08-05] MEDS: INSULIN REGULAR, HUMAN 100 UNIT/1 ML SQ SCH ×3 (07:30→16:30)
[2022-08-05] MEDS: INSULIN LISPRO 100 UNIT/1 ML 3ML VIAL SQ SCH ×3 (08:00→16:30)
[2022-08-05 08:28] LABS: EOSINOPHILS % (MANUAL) 2 % (0-7); LYMPHOCYTES % (MANUAL) 40 % (19-48); MONOCYTES % (MANUAL) 5 % (3.4-9.0); NEUTROPHILS % (MANUAL) 53 % (40-74); PLATELET ESTIMATE MODERATELY INCREASED; PLATELET MORPHOLOGY COMMENT NORMAL
[2022-08-05 08:29] LABS: ANISOCYTOSIS SLIGHT; HYPOCHROMASIA SLIGHT; RBC MORPHOLOGY COMMENT NORMAL
[2022-08-05] MEDS: GLIPIZIDE 5 MG TAB PO SCH ×2 (08:30→16:30)
[2022-08-05] MEDS: FERROUS SULFATE 325 MG TAB PO SCH (09:00)
[2022-08-05] MEDS: METFORMIN HCL 500 MG TAB CR PO SCH ×2 (09:00→17:00)
[2022-08-05] MEDS: INSULIN GLARGINE 100 UNITS/ML VIAL SQ SCH ×2 (09:00→17:00)
[2022-08-05] MEDS: DOCUSATE SODIUM 100 MG CAP PO SCH ×2 (09:00→17:00)
[2022-08-05] MEDS: MAGNESIUM OXIDE 400 MG TAB PO SCH (09:37)
[2022-08-05] MEDS: ASCORBIC ACID 500 MG TAB PO SCH (09:37)
[2022-08-05] MEDS ORDERED: CEFTRIAXONE 2 GM in SODIUM CHLORIDE 0.9% 100 ML IV SCH (13:00)
[2022-08-05] MEDS ORDERED: ENOXAPARIN SOD INJ 40 MG/0.4 ML SYR SC SCH (17:00)
== END 2022-08-05 17:43 | DRG 871 ==
LOC: ER 20:21 → ERHOLD 23:24 → MED/SURG3 08-02 01:25
PROVIDERS: ADMIT Internal Medicine; ATTEND Internal Medicine
PROC: 3E03329 Introduction of Other Anti-infective into Peripheral Vein, Percutaneous Approach (ICD-10-PCS; principal; 2022-08-01)
PROC: 02HV33Z Insertion of Infusion Device into Superior Vena Cava, Percutaneous Approach (ICD-10-PCS; 2022-08-03)
DX: A41.9 Sepsis, unspecified organism (principal); L89.154 Pressure ulcer of sacral region, stage 4; L89.224 Pressure ulcer of left hip, stage 4; L89.214 Pressure ulcer of right hip, stage 4; G82.20 Paraplegia, unspecified; N39.0 Urinary tract infection, site not specified; Z16.24 Resistance to multiple antibiotics; M46.28 Osteomyelitis of vertebra, sacral and sacrococcygeal region; E03.9 Hypothyroidism, unspecified; B96.1 Klebsiella pneumoniae [K. pneumoniae] as the cause of diseases classified elsewhere; E11.69 Type 2 diabetes mellitus with other specified complication; B96.89 Other specified bacterial agents as the cause of diseases classified elsewhere; D64.9 Anemia, unspecified; Z88.8 Allergy status to other drugs, medicaments and biological substances; Z91.041 Radiographic dye allergy status; Z83.3 Family history of diabetes mellitus; Z93.3 Colostomy status; Z20.822 Contact with and (suspected) exposure to COVID-19
CPT/HCPCS: 36415; 36569; 71045; 74176; 80053; 80202; 81001; 82948; 83036; 83605; 84443; 85025; 85610; 85730; 87040; 87071; 87086; 87186; 87205; 99251; 99284; J0696; J1815; J1817; J2185; J3370; J7030; J7050; Q0162